=== PATIENT | male | born 1940 | race Caucasian/White ===

== ENCOUNTER 2024-05-25 20:13 | Inpatient (IN) | payer OTHER, SELFPAY ==
[2024-05-25] VITALS (7 sets, daily range): BP systolic 112–148; BP diastolic 50–77; BMI 28.2; BMI 27.5
--- NOTE | 2024-05-25 15:53 | ED.GENMED ---
History of Present Illness
General
Chief Complaint: Breathing Problem
Source: patient
Exam Limitations: none
Time Seen by Provider: 05/25/24 15:44
Nursing documentation reviewed up to this point in time: agreed with
History of Present Illness
History of Present Illness:
83-year-old male with history of COPD, interstitial lung disease, ex smoker, HTN, HLD, pacemaker, CAD, HFpEF, Parox afib, TAVR, on Eliquis, PVD, GERD, IDDM, CKD, hypothyroid presents stating he has had increasing shortness of breath past 3 to 4 days
with significant fatigue. 3 nights ago at 3 AM he became short of breath, he awoke with a temperature of 101 and had the rigors. He took Tylenol. His throat was scratchy that day but that has resolved. For the next 2 days he had intermittent
small amounts of nonbloody diarrhea, his last diarrheal stools yesterday, none today. He has had a productive cough for the past 2 days with a coarse junky gurgling sound in his lungs.
Daughter at bedside who is a nurse practitioner states she went to see him at 7:30 AM 2 days ago, he was still fevers and his pulse ox was showing 90 to 92% on room air where he typically is 94% on room air. The next day she states he was improved,
afebrile but that night his fever went to 100.0 again
Last night temperature was 100.1 and with any exertion his pulse ox decreased to 82 to 88%, improving after a nebulization treatment to 92%.
His last appointment with his cleaning porter Georgette was 1 week ago, he was up 10 pounds, he had +2 pitting edema of his ankles and JVD. She added an extra 10 mg daily to his Torsemide (30 mg a.m. 20 mg p.m.) for the next 3 days.
Daughter states today pt could not even walk from Bedroom to kitchen without significant SOB and pulse ox dropping to 80%
Past History
Past History
ED Past Medical History: CAD, CHF, COPD, HTN, Hypercholesterolemia, NIDDM, Valvular disease, Hypothyroidism, Psychiatric (Anxiety, depression) and Other (PNA, Cirrhosis of the liver)
ED Past Surgical History: Cardiac (Pacemaker, TAVR, Stent X 1)
Social History
Tobacco: Former smoker
Alcohol: Former
Personal:
Living: with family
Employment: Retired
Family History
Family History: Other (Noncontributory)
Review of Systems
Review of Systems
Allergies reviewed?: Yes
All Other Systems: ROS reviewed and negative except as documented in HPI and ROS
Constitutional: Reports fever, fatigue and chills
EENT: Denies sore throat
Respiratory: Reports cough and trouble breathing
Cardiac: Denies chest pain or diaphoresis
ABD/GI: Reports diarrhea; Denies abdominal pain, nausea, vomiting, bloody stools or black stools
: Denies dysuria, frequency or difficulty voiding
Musculoskeletal: Reports no symptoms
Skin: Reports no symptoms
Neurological: Reports no symptoms
Phy Exam
Physical Exam
Physical Exam:
GENERAL: No acute distress. A&Ox3.
CONSTITUTIONAL: Afebrile.
EYES: PERRL, conjunctivae normal
Neck: Supple
ENMT: Dry mucus membranes, Pharynx nl
RESPIRATORY: Regular respirations, nonlabored, lungs with coarse junky loose breath sounds, productive cough, rhonchi worse in right lung matias than left. Pulse ox 92 to 94% room air unless any exertion then it quickly drops into the 80s
CARDIOVASCULAR: Regular rate and rhythm, no murmurs, no rubs.
GI: Soft, nontender, normal BS
MUSCULOSKELETAL: Moves with ease. Well perfused. No edema.
SKIN: Warm, dry, pink
PSYCH: Normal mood and affect. Well kept, interactive and appropriate
NEUROLOGIC: Awake, alert and oriented. No focal neurological deficits
Scores
Heart Failure Risk
Heart Failure Risk Score: Yes
History of Stroke or TIA: No
History of intubation for respiratory distress: No
Heart rate on ED arrival >/= 110: No
SaO2 <90% on arrival on room air: Yes
HR >/=110 during 3min walk test (or too ill to perform test): No
ECG has acute ischemic changes: No
Urea >/=12mmol/L (BUN 33.6mg/dL): Yes
Serum CO2>/=35mmol/L: No
Troponin I or T elevated to CO Level (0.4mg/dL): No
NT-proBNP >/=5,000ng/L (5,000pg/ml): No
HF Risk Score: 2
Admission Status: MEDIUM RISK 9.2% Consider observation or discharge to home with homecare & f/u visit to PCP/Mass Spectroscopist, or SNF for treatment
Course
Orders/Labs/Results
Orders:
Orders
05/25/24 Dinner
2000 calorie (17 carb) Diabetic
Diabetic Diet: Sodium, 2 Gram
05/25/24 15:14
Electrocardiogram (*1) Urgent
Reason for Study: Shortness of Breath
EKG- Treatment ONCE
05/25/24 15:53
COVID-19 Antigen Urgent
Source: Nasal Swab
Complete Blood Count/With Diff Urgent
Comprehensive Metabolic Panel Urgent
Pro-BNP [NT-proBNP] Urgent
Influenza A+B Rapid Molecular Urgent
JULES Source: Nasal Swab
Specimen Description:
05/25/24 16:15
CR Chest - 2 Views Urgent
Comment:
Reason For Exam: SOB, cough
05/25/24 16:30
Lactic Acid Urgent
Blood Culture Q30M
JULES Source: Blood/Venous
Specimen Description:
Blood Culture Q30M
JULES Source: Blood/Venous
Specimen Description:
05/25/24 19:33
Admit/Transfer Patient As Directed
Co-Sign Provider:
Level of Care: Inpatient admission
Assign to:: Medical/Surgical
Physician / Group: Talha
Diagnosis: Acute COPD Exacerbation
Reason for Hospitalization: IV Steroids, Nebs
Expected length of stay greater than two midnights?: Yes
ELOS- Estimated Length of Stay in days: 3
I certify the patient meets the requirements for IP care: Yes
05/25/24 19:37
Code Status As Directed
Resuscitation Status: Do not resuscitate
Reached after discussion with pt or family/Healthcare POA: Yes
05/25/24 19:44
DNR Bracelet Application ONCE
05/25/24 20:55
Acetaminophen [Tylenol] 650 mg PO Q4HPRN PRN
Apixaban [Eliquis] 2.5 mg PO BID
Budesonide [Pulmicort] 0.5 mg INH R BID
Dexamethasone Sod Phosphate [Decadron] 6 mg IV Q8H
Dextrose 50%-Water [Dextrose 50% Syringe] 12.5 grams IV [id number] PRN
Glucagon [GlucaGen] 1 mg IM PRN PRN
Guaifenesin [Mucinex] 600 mg PO BID
Ipratropium/Albuterol Sulfate [Duoneb] 3 ml INH R Q4HPRN PRN
Ipratropium/Albuterol Sulfate [Duoneb] 3 ml INH R QID
05/25/24 20:55
PULMONARY CONSULT Routine
Consulting Provider: Olga Brock
Was physician already notified: Yes
Activity As Directed
Activity Level: Out of Bed-Early Mobility
With Assistance
Bedside Glucose Monitoring As Directed
Frequency: AC&HS
Additional Instructions:: Change to q6h if pt on TPN, tube feeding or not eating
I&O [Intake/ Output] As Directed
Frequency: q12h
Vital Signs As Directed
Frequency: Per unit guidelines
Weight As Directed
Frequency: Daily
Pulse Ox/exercise [RESP] Routine
Quantity: 1
Pulse Ox/spot Check [RESP] Routine
Quantity: 1
Rx Incentive Spirometry [RESP] Routine
Frequency: q1h while awake
Rx Pep / Acapela [RESP] Routine
Ot Eval And Treat Routine
Pt Eval And Treat Routine
Activity Level: Out of Bed-Early Mobility
05/25/24 22:00
Atorvastatin [Lipitor] 40 mg PO HS
Donepezil HCl [Aricept] 10 mg PO HS
Doxazosin Mesylate [Cardura] 3 mg PO HS
Sertraline HCl [Zoloft] 50 mg PO HS
05/26/24 06:00
Basic Metabolic Panel IN AM
Complete Blood Count/No Diff IN AM
Magnesium IN AM
05/26/24 07:30
Insulin Aspart Corrective Low [Novolog Flexpen-Low Resistance] See Protocol SC AC
hskfem-ggiuwemz-iqdbhqc [Creon] 1 cap PO AC
05/26/24 08:00
Amlodipine [Norvasc] 10 mg PO DAILY
Empagliflozin [Jardiance] 10 mg PO DAILY
Glimepiride [Amaryl] 1 mg PO DAILY
Levothyroxine [Synthroid] 175 mcg PO DAILY
Potassium Chloride [KCl] 20 meq PO DAILY
Torsemide [Demadex] 30 mg PO DAILY
05/26/24 18:00
Azithromycin [Zithromax] 250 mg PO QPM
Cholecalciferol (Vitamin D3) [VITAMIN D3 (cholecalciferol)] DOSE mcg PO QPM
Pantoprazole [Protonix] 40 mg PO QPM
Propranolol [Inderal] 10 mg PO QPM
Torsemide [Demadex] 20 mg PO QPM
05/26/24 19:33
Metolazone [Zaroxolyn] 2.5 mg PO WESA
Abnormal Lab Results
05/25/24
15:53
WBC 12.4 H 10^3/uL
(4.8-10.8)
RBC 4.33 L 10^6/uL
(4.70-6.10)
Hgb 10.6 L g/dL
(13.0-18.0)
Hct 35.5 L %
(39.0-52.0)
MCH 24.5 L pg
(27.0-31.0)
MCHC 29.9 L g/dL
(33.0-37.0)
RDW 18.1 H %
(11.5-14.5)
MPV 11.3 H fL
(7.4-10.4)
Abs Immat Gran (auto) 0.1 H 10^3/uL
(0-0.05)
Absolute Neuts (auto) 10.4 H 10^3/uL
(1.4-6.5)
Absolute Lymphs (auto) 0.9 L 10^3/uL
(1.2-3.4)
Absolute Monos (auto) 0.9 H 10^3/uL
(0.1-0.6)
Immature Gran % 0.6 H %
(0-0.5)
Neutrophils % 83.8 H %
(42.2-75.2)
Lymphocytes % 7.6 L %
(20.5-51.1)
BUN 57 H mg/dl
(9-20)
Creatinine 1.5 H mg/dL
(0.7-1.3)
Glucose 374 H mg/dl
(70-99)
Total Protein 5.8 L g/dl
(6.3-8.2)
05/25/24 15:53
05/25/24 15:53
Vital Signs
Initial and Last Documented VS:
Initial Vital Signs
Temp Pulse Resp BP Pulse Ox
98.5 F 80 20 146/50 93
05/25/24 15:10 05/25/24 15:10 05/25/24 15:10 05/25/24 15:10 05/25/24 15:10
Last Documented Vital Signs
Temp Pulse Resp BP Pulse Ox
98.5 F 76 18 140/58 91
05/25/24 15:10 05/25/24 20:45 05/25/24 20:45 05/25/24 20:00 05/25/24 20:45
MDM/Problems Addressed
Differential Diagnosis Includes:
CHF, COPD exacerbation, PNA
MDM/Problems Addressed:
83-year-old male with history of COPD, interstitial lung disease, ex smoker, HTN, HLD, pacemaker, CAD, HFpEF, Parox afib, TAVR 05/2022, on Eliquis, PVD, GERD, IDDM, CKD, hypothyroid presents stating he has had increasing shortness of breath past 3 to
4 days with significant fatigue. 3 nights ago at 3 AM he became short of breath, he awoke with a temperature of 101 and had the rigors. He took Tylenol. His throat was scratchy that day but that has resolved. For the next 2 days he had
intermittent small amounts of nonbloody diarrhea, his last diarrheal stools yesterday, none today. He has had a productive cough for the past 2 days with a coarse junky gurgling sound in his lungs.
Daughter at bedside who is a nurse practitioner states she went to see him at 7:30 AM 2 days ago, he was still fevers and his pulse ox was showing 90 to 92% on room air where he typically is 94% on room air. The next day she states he was
improved, afebrile but that night his fever went to 100.0 again
Last night temperature was 100.1 and with any exertion his pulse ox decreased to 82 to 88%, improving after a nebulization treatment to 92%.
His last appointment with his cleaning porter Georgette was 1 week ago, he was up 10 pounds, he had +2 pitting edema of his ankles and JVD. She added an extra 10 mg daily to his Torsemide (30 mg a.m. 20 mg p.m.) for the next 3 days.
Daughter states today pt could not even walk from Bedroom to kitchen without significant SOB and pulse ox dropping to 80%
EKG: AV dual paced rhythm, rate 71
last echocardiogram w EF 60-65% 10/31/23
Pt with coarse junky loose productive cough
Moving himself up in bed, pulse ox dropped to 82% then back up to 95% RA
CBC: No clinically significant abnormality
CMP: BUN/creat at 57/1.5 his baseline. Glucose 374 otherwise normal
BNP: 1770 not clinically significant for his age
Covid test neg
6:45 PM
In to reevaluate
CXR radiology report read: NAD
Patient ambulated to bathroom and around room and pulse ox dropped to 88%. At rest it goes back up to 95% on room air.
I believe he is having a COPD exacerbation.
Daughter is interested in having patient have home O2.
Neither she nor the patient are comfortable going home with his respiratory status.
Final diagnosis: Exertional dyspnea, Hypoxemia, COPD exacerbation
Fever and chills reported, blood cultures pending.
Hospitalist notified of admission
*EKG
EKG Intrepretation Date: 05/25/24
Interpretation: abnormal
Heart Rate: 71
Rate: normal
Rhythm: other
Verner: normal axis
QRS Pattern: wide non-specific
Ischemia: no ischemia
*Critical Care Note
Total Time (30-74mins, 75-104mins- exclusive of procedures): Not Applicable
ED Attending Note
-
Portions of this chart may have been created with voice recognition software.� Occasional wrong word or��sound alike� substitutions may have occurred due to the inherent limitations of voice recognition software.
Discharge Plan
Departure
Patient Disposition: Admit
Date of Disposition: 05/25/24
Time of Disposition: 19:01
Admit to: Med/Surg
Presentation/result/management discussed w/ accepting MD/DO: Hospitalist
Condition: Fair
Covid-19: Negative COVID-19
Discharge Problem:
COPD exacerbation
Interventions
Interventions:
*Risk Screen - Suicide Last Done: 05/25/24 15:38
*General Assessment Last Done: 05/25/24 15:10
*Neglect/Abuse Screening Last Done: 05/25/24 15:38
ED- Fall Risk Assessment Last Done: 05/25/24 16:44
*ED COVID-19 Vaccine History Last Done: 05/25/24 15:10
*Nursing Disposition Last Done: 05/25/24 20:51
ED- Cardiac Assessment Last Done: 05/25/24 16:43
ED- Pulmonary Assessment Last Done: 05/25/24 16:43
Discharge Date and Time
Discharge Date/Time: 05/25/24 20:51
[2024-05-25 16:04] LABS: % Basophils 0.2 % (0-2); % Eosinophils 0.2 % (0-6); % Immature Granulocytes 0.6 % (0-0.5); % Lymphocytes 7.6 % (20.5-51.1); % Monocytes 7.6 % (1.7-9.3); % Neutrophils 83.8 % (42.2-75.2); Absolute Immature Granulocytes 0.1 10^3/uL (0-0.05); Absolute Lymphocytes 0.9 10^3/uL (1.2-3.4); Absolute Monocytes 0.9 10^3/uL (0.1-0.6); Absolute Neutrophils 10.4 10^3/uL (1.4-6.5); Hematocrit 35.5 % (39.0-52.0); Hemoglobin 10.6 g/dL (13.0-18.0); Mean Corp Hgb Conc. 29.9 g/dL (33.0-37.0); Mean Corpuscular Hgb 24.5 pg (27.0-31.0); Mean Platelet Volume 11.3 fL (7.4-10.4); Nucleated Red Blood Cells % 0 % (-); Platelet Count 145 10^3/uL (130-400); Red Blood Cell Count 4.33 10^6/uL (4.70-6.10); Red Cell Dist. Width 18.1 % (11.5-14.5); White Blood Cell Count 12.4 10^3/uL (4.8-10.8)
[2024-05-25 16:21] LABS: ALT (SGPT) 27 U/L (0-50); AST (SGOT) 34 U/L (17-59); Albumin 3.7 g/dl (3.5-5.0); Alkaline Phosphatase 65 U/L (38-126); Blood Urea Nitrogen 57 mg/dl (9-20); Calcium 8.6 mg/dl (8.4-10.2); Carbon Dioxide 26 mmol/L (22-30); Chloride 100 mmol/L (98-107); Estimated Creatinine Clearance 39 ml/min; Glucose 374 mg/dl (70-99); Potassium 3.9 mmol/L (3.5-5.1); Sodium 137 mmol/L (135-145); Total Bilirubin 0.4 mg/dl (0.2-1.3); Total Protein 5.8 g/dl (6.3-8.2); eGFR 45.91
[2024-05-25 16:24] LABS: NT-proBNP 1770 pg/ml
[2024-05-25 16:45] LABS: COVID-19 Antigen Negative (Negative)
[2024-05-25 16:52] LABS: Lactic Acid 1.9 mmol/L (0.7-2.0)
--- NOTE | 2024-05-25 19:45 | HPS.HSE ---
Family Physician
-
Family Physician: Dexter Meng
Chief Complaint
-
Cough and Shortness of Breath
History of Present Illness
Patient is an 83 y/o male past medical history of CHF, COPD/ILD on chronic steroids and azithromycin, A-fib, HTN, and DM who presents with increased cough and shortness of breath. Additional history is obtained from patient's daughter at the
bedside. Patient was noted to have upper respiratory symptoms over the past several days which was associated with fever initially. Fever curve appears to be improving but patient continues with worsening shortness of breath. Daughter notes
patient's pulse ox drop down into the 80s with any activity. Cough is noted to sound very moist and productive. Daughter notes he was recently treated for an acute heart failure exacerbation with increased diuretics last week, but noted his
previous lower extremity edema is much improved and his weight is back down to baseline
Medical History
Past Medical History
Past Medical History: Reports Other
Additional Past Medical History:
Coronary Artery Disease s/p LAD Stent in 2012
Chronic HFpEF
Aortic Stenosis s/p TAVR
Paroxysmal Atrial Fibrillation
Heart Block/SSS s/p Pacemaker
Essential Hypertension
Hyperlipidemia
Diabetes Mellitus, Type II
COPD / Interstitial Lung Disease
Hypothyroidism
Essential Tremor
Mild Cognitive Impairment
Anxiety/Depression
BPH
GERD
Past Surgical History: Reports Other
Additional Past Surgical History:
Partial Colon Resection
TAVR
PPM Placement
Social History
Tobacco: Former Smoker (Quit in 2013)
Family History
Family History: Not pertinent
Allergies / Home Medications
Allergies reflects when Allergies were last updated in [facility].
Home Medications with original date entered in [facility]
Allergy/Medication List:
Allergies
Allergy/AdvReac Type Severity Reaction Status Date / Time
No Known Allergies Allergy Verified 05/25/24 15:13
Home Medications
cyanocobalamin (vitamin B-12) 1,000 mcg tablet 1,000 mcg PO QPM Supplement 01/13/20
levothyroxine 175 mcg tablet 175 mcg PO DAILY Thyroid 01/13/20
sertraline 50 mg tablet 50 mg PO HS Mental Health/Anxiety 01/13/20
atorvastatin 40 mg tablet 40 mg PO HS High cholesterol 05/15/20
pantoprazole 40 mg tablet,delayed release 40 mg PO QPM Gastrointestinal issue 05/15/20
propranolol 10 mg tablet 10 mg PO QPM Mental Health/Anxiety 05/15/20
cholecalciferol (vitamin D3) 50 mcg (2,000 unit) tablet 2,000 units PO QPM Supplement 03/28/21
doxazosin 1 mg tablet 3 mg PO HS 03/28/21
budesonide 0.5 mg/2 mL suspension for nebulization 0.5 mg (2 mL) inhalation R BID 30 days ##2 05/07/21
guaifenesin 600 mg tablet, extended release 12 hr (Mucus Relief ER) 600 mg PO BID Lung/breathing issues 03/15/22
magnesium oxide 400 mg PO QPM Supplement 03/15/22
torsemide 20 mg tablet 30 mg PO DAILY Fluid retention/Swelling 03/15/22
empagliflozin 10 mg tablet (Jardiance) 10 mg PO DAILY 04/10/22
amlodipine 10 mg tablet 10 mg PO DAILY Blood pressure ##0 05/07/22
acetaminophen 500 mg tablet (Tylenol Extra Strength) 1,000 mg PO TIDPRN PRN mild pain 10/17/23
apixaban 5 mg tablet (Eliquis) 2.5 mg PO BID 05/25/24
azithromycin 250 mg tablet 250 mg PO QPM 05/25/24
benzonatate 100 mg capsule 100 mg PO DAILYPRN PRN cough 05/25/24
calcium-magnesium 1 tab PO BID 05/25/24
donepezil 10 mg tablet 10 mg PO HS 05/25/24
glimepiride 1 mg tablet 1 mg PO DAILY 05/25/24
ipratropium 0.5 mg-albuterol 3 mg (2.5 mg base)/3 mL nebulization soln 3 ml inhalation R TID 05/25/24
fwfzwe-cykiqehq-smycqbz 24,000-76,000-120,000 unit capsule,delayed rel (Creon) 1 cap PO AC 05/25/24
metolazone 2.5 mg tablet 2.5 mg PO WESA 05/25/24
potassium chloride 20 mEq tablet,extended release 20 meq PO DAILY 05/25/24
prednisone 10 mg tablet 5 mg PO TUFR 05/25/24
prednisone 10 mg tablet 10 mg PO SUMOWETHSA 05/25/24
simethicone 80 mg chewable tablet 80 mg PO DAILYPRN PRN gas/bloating 05/25/24
torsemide 20 mg tablet 20 mg PO QPM 05/25/24
vitamins A,C,G-vpgb-nbdyiy 2,148 mcg-113 mg-45 mg-17.4 mg tablet (PreserVision AREDS) 1 tab PO BID 05/25/24
Review of Systems
-
A 12 point ROS was completed and negative except as noted: Yes
Constitutional: Reports Fever and Chills
Respiratory: Reports See HPI
Cardiac: Denies Chest Pain or Palpitations
Physical Exam
Vital Signs
Vital Signs
Temp Pulse Resp BP Pulse Ox
98.5 F 65 15 129/56 93
05/25/24 15:10 05/25/24 16:15 05/25/24 16:15 05/25/24 16:00 05/25/24 16:15
Physical Exam
General: Comfortable and Conversant
HEENT: Anicteric and Moist mucous membranes
Respiratory: Rhonchi (Diffuse) and Non Labored Respirations
Cardiac: S1/S2 and Regular Rhythm; No Tachycardia
GI: Soft and Non Tender
Rectal: Deferred by Provider
Musculoskeletal: No Clubbing, No Cyanosis and No Edema
Skin: Warm and Dry
Neuro: Awake, Alert and Nonfocal/grossly intact
Psych: Calm
Laboratory Results
-
05/25/24 15:53
05/25/24 15:53
Laboratory Results
Lactic Acid 1.9 mmol/L (0.7-2.0) 05/25/24 16:30
Total Bilirubin 0.4 mg/dl (0.2-1.3) 05/25/24 15:53
AST 34 U/L (17-59) 05/25/24 15:53
ALT 27 U/L (0-50) 05/25/24 15:53
Alkaline Phosphatase 65 U/L (38-126) 05/25/24 15:53
Data Reviewed
-
Diagnostic Radiology: Report Reviewed by me
Lab Data: Labs Reviewed by me
Old Records: Reviewed
Impression/Plan
-
Acute COPD Exacerbation
-Consult Pulmonary
-Continue Pulmicort Neb BID
-Continue DuoNeb QID and PRN
-Continue Mucinex
-Continue Zithromax as prior to admission
-Encourage use of incentive spirometer and Acapella device
-Patient may benefit from home oxygen for activity
Chronic HFpEF
-Continue torsemide and metolazone
-Monitor Is&Os and Daily Weights
Paroxysmal Atrial Fibrillation
-Continue Eliquis for anticoagulation
Essential Hypertension
-Continue amlodipine with hold parameters
Hyperlipidemia
-Continue Atorvastatin
Diabetes Mellitus, Type II
-HgbA1c 7.0 in March 2023
-Continue glimepiride and Jardiance
-Monitor sugars and continue coverage insulin
CKD Stage III
-Creatinine at baseline
Hypothyroidism
-Continue levothyroxine
Essential Tremor
-Continue Propranolol
Mild Cognitive Impairment
-Continue Donepezil
Anxiety/Depression
-Continue sertraline
BPH
-Continue Doxazosin
GERD
-Continue Protonix
Coronary Artery Disease s/p LAD Stent in 2012
Aortic Stenosis s/p TAVT
Heart Block/SSS s/p Pacemaker
DVT Proph: Eliquis
Code Status: DNR
--- NOTE | 2024-05-25 20:06 | W.PN.UPDATE ---
Update Note
Progress Note Update
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
HPI
83M HX COPD, chr HFpEF, TAVR, AF on Eliquis, PPM, CKD3, seen at ER for SoB
Current Dyspnea for last 3-4 days
- with a productive cough for the past 2 days and felt congested
- onset for last 3- 4day
- associated with fatigue
- Fever with rigors at home - T was 101
- URI like symptoms with sore thrroat
- aslo intermittent nonbloody diarrhea: last diarrheal stools yesterday, none today
At ER:
POx 93 % on RA
PHX
CAD, CHF, COPD, HTN, Hypercholesterolemia, NIDDM, Valvular disease, Hypothyroidism, Psychiatric (Anxiety, depression) and Other (PNA, Cirrhosis of the liver)
PSH
#26 mm Fleming S3 TAVR with peak/mean gradients of 22/13 mmHg,
status post right total hip arthroplasty.
Reviewed VS: POx 93 % on RA otherwise unremarkable
PE
Lungs:c diffuse rhonchi worse in right lung matias than left
Data
WCC 12.4
Hgb 10.6 - baseline low 12s
BUN 57
Cr 1.5 1.4 to 1.1 on 2021
eGFR 45
BG 375
pro BNP 1770 - baseline range 500s to 4000s
NEG Covid
NEG Flu A & B
BCx ordered
05/25 CXR: No acute cardiopulmonary process
EKG report
AV dual-paced rhythm
ABNORMAL ECG
WHEN COMPARED WITH ECG OF 17-OCT-2023 08:33,
VENT. RATE HAS INCREASED BY 2 BPM
Confirmed by NEIL RODRIGUEZ MD ([id number]) on 05/25/2024 3:52:01 PM
10/10/22 ECHO
LVEF 60-65
Possible mild mitral stenosis with mean gradient of 6 mmHg. Mitral valve area 2.6 cm2.
Mild mitral regurgitation.
Well seated #26 mm Fleming S3 TAVR with peak/mean gradients of 22/13 mmHg, respectively.
Trace paravalvular aortic regurgitation.
ASSESSMENT & PLAN
Fever , productive cough with associated dyspnea DDx: acute bronchitis /AE COPD ? viral origin
HX IS Lung dz on daily Z max and COPD; not on home O2
- marginal hypoxia and rest and exertional hypoxia as low as 80 s and Leucocytosis
- NEG CXR
- IV steroids, Nebs
- cont Z max
Chronic HFpEF; no acute HF
- on torsemide and metolazone
Paroxysmal AF
- on Eliquis for anticoagulation
Essential Hypertension
- on amlodipine with hold parameters
Hyperlipidemia
-Continue Atorvastatin
T2DM
-HgbA1c 7.0 in March 2023
- on glimepiride and Jardiance
- add ISS
CKD3
-Creatinine at baseline
Hypothyroidism
- on levothyroxine
Essential Tremor
- on propranolol
Mild Cognitive Impairment
- on Donepezil
Anxiety/Depression
- 0n sertraline
CAD s/p LAD Stent in 2012
Aortic Stenosis s/p TAVT
Heart Block/SSS s/p Pacemaker
DVT Proph: Eliquis
Code Status: DNR
Ip TLM
[2024-05-25 21:05] LABS: Glucose - Point of Care 226 mg/dl (70-99)
[2024-05-25] MEDS: CARDURA 3 MG PO (21:19)
[2024-05-25] MEDS: ZOLOFT 50 MG PO ×2 (21:19→21:21)
[2024-05-25] MEDS: DUONEB 3 ML INH (21:20)
[2024-05-25] MEDS: MUCINEX 600 MG PO (21:20)
[2024-05-25] MEDS: ZOLOFT PO (21:20)
[2024-05-25] MEDS: LIPITOR 40 MG PO (21:20)
[2024-05-25] MEDS: PULMICORT 0.5 MG INH (21:20)
[2024-05-25] MEDS: ELIQUIS 2.5 MG PO (21:21)
[2024-05-25] MEDS: DECADRON 6 MG IV (21:22)
[2024-05-25] MEDS: ARICEPT 10 MG PO (21:28)
[2024-05-26] MEDS: DUONEB 3 ML INH ×5 (03:06→19:46)
[2024-05-26] MEDS: SYNTHROID 175 MCG PO (05:12)
[2024-05-26] MEDS: DECADRON 6 MG IV ×3 (05:12→21:38)
[2024-05-26 05:57] VITALS: BMI 27.7
[2024-05-26 06:48] LABS: Hematocrit 33.1 % (39.0-52.0); Hemoglobin 10.5 g/dL (13.0-18.0); Mean Corp Hgb Conc. 31.7 g/dL (33.0-37.0); Mean Corpuscular Hgb 24.7 pg (27.0-31.0); Mean Corpuscular Volume 77.9 fL (80.0-94.0); Mean Platelet Volume 11.1 fL (7.4-10.4); Platelet Count 166 10^3/uL (130-400); Red Blood Cell Count 4.25 10^6/uL (4.70-6.10); Red Cell Dist. Width 18.3 % (11.5-14.5); White Blood Cell Count 10.8 10^3/uL (4.8-10.8)
[2024-05-26 07:19] LABS: Blood Urea Nitrogen 55 mg/dl (9-20); Calcium 8.8 mg/dl (8.4-10.2); Carbon Dioxide 24 mmol/L (22-30); Chloride 101 mmol/L (98-107); Estimated Creatinine Clearance 39 ml/min; Glucose 236 mg/dl (70-99); Magnesium 2.1 mg/dl (1.6-2.3); Potassium 4.1 mmol/L (3.5-5.1); Sodium 137 mmol/L (135-145); eGFR 45.91
[2024-05-26 07:59] LABS: Glucose - Point of Care 247 mg/dl (70-99)
[2024-05-26 08:00] VITALS: BP 137/52
[2024-05-26] MEDS: PULMICORT 0.5 MG INH ×2 (08:22→19:50)
[2024-05-26 08:28] VITALS: PULSE 96; O2SAT 93
[2024-05-26 08:31] VITALS: PULSE 96; O2SAT 93
--- NOTE | 2024-05-26 08:33 | PTOTSP ---
The patient is independent with ambulation and mobility, offering no concerns regarding mobility upon return home. No PT needs identified at this time, will sign off.
[2024-05-26] MEDS: NOVOLOG FLEXPEN-LOW RESISTANCE 2 UNITS SC (10:17)
[2024-05-26] MEDS: JARDIANCE 10 MG PO (10:18)
[2024-05-26] MEDS: MUCINEX 600 MG PO ×2 (10:19→19:38)
[2024-05-26] MEDS: AMARYL 1 MG PO (10:19)
[2024-05-26] MEDS: ZENPEP DELAYED RELEASE CAPSULE 1 CAPSULE PO ×3 (10:19→17:48)
[2024-05-26] MEDS: ELIQUIS 2.5 MG PO ×2 (10:19→19:38)
[2024-05-26] MEDS: DEMADEX 30 MG PO (10:20)
[2024-05-26] MEDS: NORVASC 10 MG PO (10:38)
[2024-05-26] MEDS: KCL 20 MEQ PO (10:38)
[2024-05-26] MEDS: ZAROXOLYN 2.5 MG PO (10:38)
--- NOTE | 2024-05-26 10:45 | CM ---
Patient seen bedside, initial assessment completed. Patient resides with his in independent apartments at [facility]. Patient denies use of DME, is independent with ADLs/IADLs. Patient PCP Dr. Meng, pharmacy [facility] in [place],
confirms prescription coverage through insurance. Patient inquiring if insurance will cover a new nebulizer, reports nebulizer is 1-2 years old. CM will confirm and update patient on coverage. CM will continue to follow for all discharge planning
needs.
Plan; home no needs anticipated.
[2024-05-26 11:57] LABS: Glucose - Point of Care 324 mg/dl (70-99)
--- NOTE | 2024-05-26 12:35 | W.PN.HOSP.TC ---
Addendum entered and electronically signed by Jack Roberts MD 05/26/24 18:10:
Patient seen and examined
Discussed with resident
Impression:
Presentation with dyspnea, wheezing for 3 to 4 days
Acute hypoxic respiratory insufficiency.
Acute COPD exacerbation
Acute tracheobronchitis possibly viral.
FAHEEM
Conditions prior to admission:
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
Not on home O2 prior to presentation
Chronic steroid dependent.
CHF preserved EF
Paroxysmal atrial fibrillation
Anticoagulation
COPD/emphysema
[id number] smoker, quit about 5 years ago.
CAD/LAD stent
Aortic stenosis status post TAVR 2019
Sick sinus syndrome status post permanent pacemaker
Carotid artery stenosis
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
Dyslipidemia
Hypertension.
Hypothyroidism
GERD.
Plan:
COPD exacerbation
Acute tracheobronchitis
Exam with mild diffuse wheezing, although no evidence for distress.
Chest x-ray with no acute cardiopulmonary process
Continue IV Decadron currently on 6 mg at hours
Insulin basal bolus protocol
Short acting bronchodilators.
Will need home O2 assessment prior to discharge
Chronic CHF preserved EF
Volume status compensated
Noted with elevated creatinine possibly FAHEEM due to diuretics
Continue torsemide/metolazone
Follow renal function
Diabetes type 2
Patient reports recent hemoglobin A1c 8.1
Monitor closely with basal bolus protocol.
Continue glimepiride and Jardiance.
Original Note:
Today's Communication/Plan
-
* Continue IV steroids and nebs.
* Mucolytics, incentive spirometry and Acapella
* O2 support if necessary.
* Continue low-dose azithromycin.
Assessment / Plan
Assessment / Plan
Impression
* Chronic obstructive pulmonary disease with acute exacerbation
* Mild respiratory hypoxemic insufficiency
* Chronic heart failure with preserved ejection fraction
* Chronic kidney disease, stage IIIa
* Paroxysmal atrial fibrillation
* Essential hypertension
* Hyperlipidemia
* Type II diabetes mellitus
* Hypothyroidism
* Pancreatic insufficiency
* Essential tremor
* Mild cognitive impairment
* Anxiety/Depression
* Benign prostatic hyperplasia
* Gastroesophageal reflux disease
* Coronary artery disease
* History of aortic stenosis
* Sinus bradycardia
* First-degree A-V block
* A-V dual-paced rhythm
Plan
Chronic obstructive pulmonary disease with acute exacerbation
Mild respiratory hypoxemic insufficiency
- Secondary to URI likely.
- [id number] smoker; quit 2018.
- Continue Pulmicort Neb BID
- Continue DuoNeb QID and PRN
- Continue Mucinex
- Continue Zithromax as prior to admission
- Encourage use of incentive spirometer and Acapella device
- Evaluated for home oxygen on 05-26-24: does not meet the criteria.
Chronic heart failure with preserved ejection fraction
- Continue torsemide and metolazone
- Monitor Is&Os and Daily Weights
Paroxysmal Atrial Fibrillation
- Continue Eliquis for anticoagulation
Essential Hypertension
- Continue amlodipine with hold parameters
Hyperlipidemia
- Continue Atorvastatin
Diabetes Mellitus, Type II
- HgbA1c 7.0 in March 2023
- Continue glimepiride and Jardiance
- Monitor sugars and continue coverage insulin
CKD Stage III
- Creatinine at baseline
Hypothyroidism
- Continue levothyroxine
Pancreatic insufficiency
- Continue Pancrelipase
Essential Tremor
- Continue Propranolol
Mild Cognitive Impairment
- Continue Donepezil
Anxiety and depression
- Continue sertraline
BPH
-Continue Doxazosin
GERD
- Continue Protonix
Coronary Artery Disease s/p LAD Stent in 2012
Aortic Stenosis s/p TAVR 2019
Sinus bradycardia/First-degree A-V block s/p Pacemaker
A-V dual-paced rhythm
DVT Proph: Eliquis
Code Status: DNR
Anticipated Discharge: 24 - 48 hours
Subjective/Interval History
-
Date of Service: May 26, 2024
Objective Data
-
Labs:
Laboratory Results
05/26/24
06:25
WBC 10.8
Hgb 10.5 L
Hct 33.1 L
Plt Count 166
Sodium 137
Potassium 4.1
Chloride 101
Carbon Dioxide 24
BUN 55 H
Creatinine 1.5 H
Glucose 236 H
Calcium 8.8
Vital Signs:
Vital Signs
Temp Pulse Resp BP Pulse Ox
98.4 F 68 18 124/54 95
05/26/24 08:00 05/26/24 11:40 05/26/24 11:40 05/26/24 10:20 05/26/24 11:40
I&O
05/25/24 05/26/24 05/27/24
06:59 06:59 06:59
Intake Total 960 / 960
Balance 960 / 960
Review of Systems
-
History Source: Patient
Constitutional: Reports No Symptoms
EENT: Reports No Symptoms Reported
Respiratory: Reports No Symptoms
Cardiac: Reports No Symptoms
Abdomen/GI: Reports No Symptoms
Genitourinary: Reports No Symptoms
Musculoskeletal: Reports No Symptoms
Skin: Reports No Symptoms
Neuro: Reports No Symptoms
Endocrine: Reports No Symptoms
Hematologic / Lymphatic: Reports No Symptoms
Allergy / Immunology: Reports No Symptoms
Physical Exam
-
General: No Apparent Distress and Comfortable
HEENT: Normocephalic, Atraumatic, Moist Mucous Membranes and Anicteric
Respiratory: Wheezes, Rhonchi and Non Labored Respirations
Cardiac: Regular Rhythm and S1/S2
GI: Soft, Nontender and Nondistended
Genito-urinary: No Costovertebral Tender
Musculoskeletal: No Clubbing, No Cyanosis and No Edema
Skin: Warm, Dry and IV Access / Catheter Site
Neuro: Awake, Alert, Oriented and Nonfocal/Grossly Intact
Psych: Calm
--- NOTE | 2024-05-26 12:35 | CON.PUL ---
Consultation
Consultation Request
Date/Time Consultation Requested: 05/26/2024
Date/Time Consultation Performed: 05/26/2024
Requesting Provider: Dr. Roberts
Performing Provider: Dr. Alek Mcghee
Reason for Consultation: Acute exacerbation of COPD
Medical History
-
History of Present Illness:
83-year-old man with past medical history significant for congestive heart failure, COPD/ILD on chronic steroids and low-dose azithromycin for anti-inflammatory properties, atrial fibrillation, hypertension, type 2 diabetes who presented to the
hospital with increased cough and shortness of breath.
Does report some initial fevers several days in the past. Overall improving. Respiratory symptoms are worsening.
He was noted to have low oxygen levels at 80%. Cough is productive and moist.
There is no mention of hemoptysis.
Patient was recently treated with diuretics with improvement of lower extremity swelling.
Past Medical History
Past Medical History: Other (See assessment and plan section)
Social History
Tobacco: Smoker (97-[id number]-oewf history quit in 2016)
Alcohol: Former (Quit in 2016)
Drug: None
Personal: Single
Living: With Family
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
Family History
Family History: Reviewed & Not Pertinent
Allergies / Home Medications
Allergies
Allergy/AdvReac Type Severity Reaction Status Date / Time
No Known Allergies Allergy Verified 05/25/24 15:13
Home Medications
�Medication �Instructions �Recorded �Confirmed �Last Taken �Type
cyanocobalamin (vitamin B-12) 1,000 mcg PO QPM Supplement 01/13/20 05/25/24 05/24/24 History
1,000 mcg tablet
levothyroxine 175 mcg tablet 175 mcg PO DAILY Thyroid 01/13/20 05/25/24 05/25/24 History
sertraline 50 mg tablet 50 mg PO HS Mental Health/Anxiety 01/13/20 05/25/24 05/24/24 History
atorvastatin 40 mg tablet 40 mg PO HS High cholesterol 05/15/20 05/25/24 05/24/24 History
pantoprazole 40 mg tablet,delayed 40 mg PO QPM Gastrointestinal issue 05/15/20 05/25/24 05/24/24 History
release
propranolol 10 mg tablet 10 mg PO QPM Mental Health/Anxiety 05/15/20 05/25/24 05/24/24 History
cholecalciferol (vitamin D3) 50 2,000 units PO QPM Supplement 03/28/21 05/25/24 05/24/24 History
mcg (2,000 unit) tablet
doxazosin 1 mg tablet 3 mg PO HS 03/28/21 05/25/24 05/24/24 History
budesonide 0.5 mg/2 mL suspension 0.5 mg (2 mL) inhalation R BID 30 05/07/21 05/25/24 05/25/24 Rx
for nebulization days ##2
guaifenesin 600 mg tablet, 600 mg PO BID Lung/breathing issues 03/15/22 05/25/24 05/25/24 History
extended release 12 hr (Mucus
Relief ER)
magnesium oxide 400 mg PO QPM Supplement 03/15/22 05/25/24 05/24/24 History
torsemide 20 mg tablet 30 mg PO DAILY Fluid 03/15/22 05/25/24 05/25/24 History
retention/Swelling
empagliflozin 10 mg tablet 10 mg PO DAILY 04/10/22 05/25/24 05/25/24 History
(Jardiance)
amlodipine 10 mg tablet 10 mg PO DAILY Blood pressure ##0 05/07/22 05/25/24 05/25/24 Rx
acetaminophen 500 mg tablet 1,000 mg PO TIDPRN PRN mild pain 10/17/23 05/25/24 05/25/24 History
(Tylenol Extra Strength)
apixaban 5 mg tablet (Eliquis) 2.5 mg PO BID 05/25/24 05/25/24 05/25/24 History
azithromycin 250 mg tablet 250 mg PO QPM 05/25/24 05/25/24 05/24/24 History
benzonatate 100 mg capsule 100 mg PO DAILYPRN PRN cough 05/25/24 05/25/24 05/25/24 History
calcium-magnesium 1 tab PO BID 05/25/24 05/25/24 05/25/24 History
donepezil 10 mg tablet 10 mg PO HS 05/25/24 05/25/24 05/24/24 History
glimepiride 1 mg tablet 1 mg PO DAILY 05/25/24 05/25/24 05/25/24 History
ipratropium 0.5 mg-albuterol 3 mg 3 ml inhalation R TID 05/25/24 05/25/24 05/25/24 History
(2.5 mg base)/3 mL nebulization
soln
qpleng-zjyvbtud-yurwonm 1 cap PO AC 05/25/24 05/25/24 05/25/24 History
24,000-76,000-120,000 unit
capsule,delayed rel (Creon)
metolazone 2.5 mg tablet 2.5 mg PO WESA 05/25/24 05/25/24 05/22/24 History
potassium chloride 20 mEq 20 meq PO DAILY 05/25/24 05/25/24 05/25/24 History
tablet,extended release
prednisone 10 mg tablet 5 mg PO TUFR 05/25/24 05/25/24 05/25/24 History
prednisone 10 mg tablet 10 mg PO SUMOWETHSA 05/25/24 05/25/24 05/24/24 History
simethicone 80 mg chewable tablet 80 mg PO DAILYPRN PRN gas/bloating 05/25/24 05/25/24 05/24/24 History
torsemide 20 mg tablet 20 mg PO QPM 05/25/24 05/25/24 05/24/24 History
vitamins A,C,P-icka-oabpvc 2,148 1 tab PO BID 05/25/24 05/25/24 05/24/24 History
mcg-113 mg-45 mg-17.4 mg tablet
(PreserVision AREDS)
Review of Systems
-
History Source: Patient
All other systems: Negative unless noted
Vitals / Labs / Diagnostic Testing
Vital Signs
Temp Pulse Resp BP Pulse Ox
98.4 F 68 18 124/54 95
05/26/24 08:00 05/26/24 11:40 05/26/24 11:40 05/26/24 10:20 05/26/24 11:40
Lab Data
05/26/24 06:25
05/26/24 06:25
Microbiology
05/25/24 15:53 Nasal Swab Influenza Types A & B (JOSEPHINE) - Final
Negative for Influenza A & B, NAAT
Negative results must be combined with clinical observations
and patient history.
Nucleic Acid Amplification test (NAAT)performed on the
[employer] platform.
Diagnostic Testing:
Physical Exam
-
HEENT: Normocephalic
Cardiovascular: S1/S2
Respiratory: Wheeze (Minimal in the bases expiratory.), Rhonchi (Scattered bilaterally.) and Other (Better air movement.)
GI: Soft and Non Distended
Neurology: Awake, Oriented and AO x 3
Skin: Warm
General: Respiratory Distress (n)
Assessment
-
Dyspnea for the last 3 to 4 days prior admission. Mild respiratory hypoxemic insufficiency.
Acute exacerbation of COPD. Likely tracheobronchitis/fever.-Cough/congestion
Chest x-ray 05/25/2024: Showed no acute cardiopulmonary process.
Negative influenza
Negative COVID
Increased proBNP 1770
History of severe COPD, mild centrilobular emphysema. FEV1 43% in 2020.
Not requiring oxygen at home up until 03/2024.
Steroid-dependent
Budesonide nebulizer/low-dose azithromycin/DuoNebs
Hyperglycemia likely due to steroid
Acute kidney injury-possibly volume depletion.
Conditions present prior to admission:
Recent admission for Covid 19 pneumonia-considered mild 03/28/21
history of heart failure with preserved ejection fraction.
Echocardiogram 10/31/2023: Normal LVEF. Mild LVH. Normal right ventricular size and function. Well-seated TAVR. Trace aortic regurgitation. Trace pulmonary regurgitation.
Postvaccination-treated with antibodies and Decadron 04/01/21
Recent admission for congestive heart failure with preserved EF/COPD 04/13/21
Recent admission for shortness of breath, 05/07/21 treated with steroids, improved
COPD/emphysema on CT-moderate based on pulmonary function testing 01/2023: FEV1 1.92 L - 76%. FEV1 FVC ratio 54%.
65-[id number]-makh smoker-quit 5 years ago
Follows up with Dr. Capps last time seen 03/2024.
Negative repeat sleep study in the past. Not on CPAP therapy.
CAD-LAD stents 2019
Aortic stenosis status post TAVR-2019
Permanent pacemaker
Carotid stenosis
Hypertension/Hyperlipidemia
Hypothyroid
GERD
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
Anxiety and depression
B12 deficiency
Pancreatic insufficiency
Bilateral cataract surgery/ TAVR 05/20, /LAD stent 01/2020/PPM 05/2020/colon resection
Assessment and plan:
Clinical picture consistent with acute exacerbation of COPD-likely tracheobronchitis.
Agree with current management-he is clinically improving.
IV corticosteroids, continue without change today.
Nebulizers: DuoNebs and Pulmicort
Secretion clearance interventions-continue Acapella device.
Mucolytic's
Oxygen therapy as necessary
Patient is on low-dose azithromycin for anti-inflammatory properties 250 mg daily. Continue for now
Hold further antibiotics for now. Seems to be clinically improving. Afebrile.
Will order a sputum culture will obtain if possible.
-
Last visit in the office 01/2024 no oxygen requirements
Home oxygen assessment prior to discharge
-
Follow blood sugars on high-dose of steroids
-
Will continue to follow.
[2024-05-26] MEDS: NOVOLOG FLEXPEN-LOW RESISTANCE 4 UNITS SC (12:42)
[2024-05-26 15:33] VITALS: BP 139/58
[2024-05-26 15:45] LABS: Glucose - Point of Care 291 mg/dl (70-99)
[2024-05-26] MEDS: DEMADEX 20 MG PO (17:48)
[2024-05-26] MEDS: NOVOLOG FLEXPEN-LOW RESISTANCE 3 UNITS SC (17:48)
[2024-05-26] MEDS: PROTONIX 40 MG PO (17:48)
[2024-05-26] MEDS: ZITHROMAX 250 MG PO (17:49)
[2024-05-26] MEDS: VITAMIN D3 (cholecalciferol) 50 MCG PO (17:49)
[2024-05-26] MEDS: INDERAL 10 MG PO (17:49)
[2024-05-26 19:38] VITALS: BP 136/50
[2024-05-26 21:19] LABS: Glucose - Point of Care 242 mg/dl (70-99)
[2024-05-26] MEDS: ARICEPT 10 MG PO (21:34)
[2024-05-26] MEDS: ZOLOFT 50 MG PO (21:34)
[2024-05-26] MEDS: CARDURA 3 MG PO (21:35)
[2024-05-26] MEDS: LIPITOR 40 MG PO (21:35)
[2024-05-26 23:05] VITALS: BP 129/61
[2024-05-27] MEDS: DUONEB 3 ML INH ×5 (03:18→19:59)
[2024-05-27 05:51] VITALS: BMI 27.8
[2024-05-27] MEDS: DECADRON 6 MG IV (05:51)
[2024-05-27] MEDS: SYNTHROID 175 MCG PO (05:51)
[2024-05-27 07:00] VITALS: BP 135/96
[2024-05-27 07:51] LABS: Glucose - Point of Care 253 mg/dl (70-99)
[2024-05-27] MEDS: NOVOLOG FLEXPEN-LOW RESISTANCE 3 UNITS SC ×2 (07:57→16:39)
[2024-05-27] MEDS: ELIQUIS 2.5 MG PO ×2 (07:58→20:21)
[2024-05-27] MEDS: MUCINEX 600 MG PO ×2 (08:00→20:21)
[2024-05-27] MEDS: DEMADEX 30 MG PO (08:00)
[2024-05-27] MEDS: ZENPEP DELAYED RELEASE CAPSULE 1 CAPSULE PO ×3 (08:00→16:43)
[2024-05-27] MEDS: AMARYL 1 MG PO (08:01)
[2024-05-27] MEDS: KCL 20 MEQ PO (08:01)
[2024-05-27] MEDS: JARDIANCE 10 MG PO (08:02)
[2024-05-27] MEDS: NORVASC 10 MG PO (08:02)
[2024-05-27] MEDS: PULMICORT 0.5 MG INH ×2 (08:07→19:59)
--- NOTE | 2024-05-27 11:17 | W.PN.PUL3 ---
Today's Communication / Plan
-
Decrease IV corticosteroids, hopefully to prednisone tomorrow
Continue nebulizer therapy
Secretion clearance intervention
Will add vest therapy
Continue low-dose azithromycin for anti-inflammatory properties
Increase activity as tolerated
Hopefully discharge planning next 24 hours
Assessment
-
83-year-old man with history of COPD follows up with Dr. Hoffmann in our office. Here for evaluation of shortness of breath, coughing for the last 3 to 4 days prior to admission. Found to be mildly hypoxemic. Found to be bronchospastic admitted for
further care. Pulmonary consulted 05/26/2024.
Dyspnea for the last 3 to 4 days prior admission. Mild respiratory hypoxemic insufficiency.
Acute exacerbation of COPD. Likely tracheobronchitis/fever.-Cough/congestion
Chest x-ray 05/25/2024: Showed no acute cardiopulmonary process.
Negative influenza
Negative COVID
Increased proBNP 1770
History of severe COPD, mild centrilobular emphysema. FEV1 43% in 2020.
Not requiring oxygen at home up until 03/2024.
Steroid-dependent
Budesonide nebulizer/low-dose azithromycin/DuoNebs
Hyperglycemia likely due to steroid
Acute kidney injury-possibly volume depletion.
Conditions present prior to admission:
Recent admission for Covid 19 pneumonia-considered mild 03/28/21
history of heart failure with preserved ejection fraction.
Echocardiogram 10/31/2023: Normal LVEF. Mild LVH. Normal right ventricular size and function. Well-seated TAVR. Trace aortic regurgitation. Trace pulmonary regurgitation.
Postvaccination-treated with antibodies and Decadron 04/01/21
Recent admission for congestive heart failure with preserved EF/COPD 04/13/21
Recent admission for shortness of breath, 05/07/21 treated with steroids, improved
COPD/emphysema on CT-moderate based on pulmonary function testing 01/2023: FEV1 1.92 L - 76%. FEV1 FVC ratio 54%.
78-[id number] smoker-quit 5 years ago
Follows up with Dr. Capps last time seen 03/2024.
Negative repeat sleep study in the past. Not on CPAP therapy.
CAD-LAD stents 2019
Aortic stenosis status post TAVR-2019
Permanent pacemaker
Carotid stenosis
Hypertension/Hyperlipidemia
Hypothyroid
GERD
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
Anxiety and depression
B12 deficiency
Pancreatic insufficiency
Bilateral cataract surgery/ TAVR 05/20, /LAD stent 01/2020/PPM 05/2020/colon resection
Assessment and plan:
Clinical picture consistent with acute exacerbation of COPD-likely tracheobronchitis.
-
Clinically improved but not back to baseline
Lung exam-05/27/2024-better air movement. Minimal expiratory wheezing. Bibasilar crackles.
Oxygen supplementation has been weaned off.
Decreased IV corticosteroids. Hopefully transition to prednisone tomorrow 05/28/2024 per
Nebulizers: DuoNebs and Pulmicort (home regimen)
Secretion clearance interventions-continue Acapella device.
Continues to have difficulty expectorating, while in the hospital we will add vest therapy.
Mucolytic's
Patient is on low-dose azithromycin for anti-inflammatory properties 250 mg daily. Continue for now
Hold further antibiotics for now. Seems to be clinically improving. Afebrile.
Will order a sputum culture will obtain if possible-difficulty expectorating, unable to produce.
-
Last visit in the office 01/2024 no oxygen requirements
Oxygen has been weaned off
-
Follow blood sugars on high-dose of steroids
-
Increase activity as tolerated.
-
Will continue to follow.
-
Hopefully discharge in the next 24 hours.
Outpatient follow-up with Dr. Capps after discharge.
Subjective Data
-
Date of Service:
Date of Service: May 27, 2024
Chief Complaint: Pulmonary Follow Up (Acute exacerbation of COPD-tracheobronchitis)
Subjective:
Patient feels better but still not back to baseline
Has difficulty expectorating
Denies hemoptysis.
Shortness of breath improved
Was able to ambulate around the [place] with some shortness of breath.
Review of Systems
General: Fever (n)
Cardiopulmonary: Dyspnea (Improved), Cough and Sputum Production (Difficulty expectorating)
Objective Data
Data Reviewed
Vital Signs / I&O / Oxygen:
Vital Signs
Temp Pulse Resp BP Pulse Ox
97.7 F 78 16 135/96 95
05/27/24 07:00 05/27/24 08:10 05/27/24 08:10 05/27/24 07:00 05/27/24 08:10
Intake and Output
05/26/24 05/27/24 05/28/24
06:59 06:59 06:59
Intake Total 960 / 960 1260 / 1260
Balance 960 / 960 1260 / 1260
SaO2 95
Physical Exam
General: Respiratory Distress (n) and Comfortable
HEENT: Normocephalic
Cardiovascular: S1-S2 and Regular Rhythm
Respiratory: Wheeze ( minimal expiratory with forceful expiration), Crackles (Both bases) and Accessory Resp Muscle Use (n)
GI: Soft and Non Distended
Neurology: Awake, Alert and AO x 3
Skin: Warm
Labs/Micro/Reports
Lab Data
05/26/24 06:25
05/26/24 06:25
Microbiology
05/25/24 16:30 Blood/Venous Blood Culture - Preliminary
No Growth in 24 hours- Final report to follow
05/25/24 16:30 Blood/Venous Blood Culture - Preliminary
No Growth in 24 hours- Final report to follow
05/25/24 15:53 Nasal Swab Influenza Types A & B (JOSEPHINE) - Final
Negative for Influenza A & B, NAAT
Negative results must be combined with clinical observations
and patient history.
Nucleic Acid Amplification test (NAAT)performed on the
[employer] platform.
--- NOTE | 2024-05-27 11:32 | W.PN.HOSP.TC ---
Addendum entered and electronically signed by Jack Roberts MD 05/27/24 14:55:
Patient seen and examined
Discussed with resident
Impression:
Presentation with dyspnea, wheezing for 3 to 4 days
Acute hypoxic respiratory insufficiency.
Acute COPD exacerbation
Acute tracheobronchitis possibly viral.
FAHEEM
Conditions prior to admission:
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
Not on home O2 prior to presentation
Chronic steroid dependent.
CHF preserved EF
Paroxysmal atrial fibrillation
Anticoagulation
COPD/emphysema
[id number]-klzy smoker, quit about 5 years ago.
CAD/LAD stent
Aortic stenosis status post TAVR 2019
Sick sinus syndrome status post permanent pacemaker
Carotid artery stenosis
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
Dyslipidemia
Hypertension.
Hypothyroidism
GERD.
Plan:
COPD exacerbation
Acute tracheobronchitis
Exam with mild diffuse wheezing, although no evidence for distress.
Chest x-ray with no acute cardiopulmonary process
Exam improved with less wheezing.
Start Decadron wean with plan for prednisone transition in AM.
Insulin basal bolus protocol
Short acting bronchodilators.
Will need home O2 assessment prior to discharge
Chronic CHF preserved EF
Volume status compensated
Noted with elevated creatinine possibly FAHEEM due to diuretics
Continue torsemide/metolazone
Follow renal function
Diabetes type 2
Patient reports recent hemoglobin A1c 8.1
Monitor closely with basal bolus protocol.
Continue glimepiride and Jardiance.
Original Note:
Today's Communication/Plan
-
* Taper IV steroids and continue nebs.
* Mucolytics, incentive spirometry and Acapella
* O2 support if necessary.
* Continue low-dose azithromycin.
Assessment / Plan
Assessment / Plan
Impression
* Chronic obstructive pulmonary disease with acute exacerbation
* Mild respiratory hypoxemic insufficiency
* Chronic heart failure with preserved ejection fraction
* Chronic kidney disease, stage IIIa
* Paroxysmal atrial fibrillation
* Essential hypertension
* Hyperlipidemia
* Type II diabetes mellitus
* Hypothyroidism
* Pancreatic insufficiency
* Essential tremor
* Mild cognitive impairment
* Anxiety/Depression
* Benign prostatic hyperplasia
* Gastroesophageal reflux disease
* Coronary artery disease
* History of aortic stenosis
* Sinus bradycardia
* First-degree A-V block
* A-V dual-paced rhythm
Plan
Chronic obstructive pulmonary disease with acute exacerbation
Mild respiratory hypoxemic insufficiency
- Secondary to URI likely.
- Not on home O2; required O2 support initially; saturating within normal limits on room air
- [id number] smoker; quit 2018.
- Continue Pulmicort Neb BID
- Continue DuoNeb QID and PRN
- Continue Mucinex
- Continue Zithromax as prior to admission
- Vest therapy per pulmonology.
- IV dexamethasone taper; hopefully oral tomorrow in anticipation of discharge.
- Encourage use of incentive spirometer and Acapella device
- Evaluated for home oxygen on 05-26-24 and 05-27-24: does not meet the criteria.
Acute kidney injury
- Possibly due to diuresis; continuing for now.
- Monitor BMP.
Chronic heart failure with preserved ejection fraction
- Continue torsemide and metolazone
- Monitor Is&Os and Daily Weights
Paroxysmal Atrial Fibrillation
- Continue Eliquis for anticoagulation
Essential Hypertension
- Continue amlodipine with hold parameters
Hyperlipidemia
- Continue Atorvastatin
Diabetes Mellitus, Type II
- HgbA1c 7.0 in March 2023; 8.0 recently, per the patient.
- Continue glimepiride and Jardiance
- Monitor sugars and continue coverage insulin
CKD Stage III
- Creatinine at baseline
Hypothyroidism
- Continue levothyroxine
Pancreatic insufficiency
- Continue Pancrelipase
Essential Tremor
- Continue Propranolol
Mild Cognitive Impairment
- Continue Donepezil
Anxiety and depression
- Continue sertraline
BPH
-Continue Doxazosin
GERD
- Continue Protonix
Coronary Artery Disease s/p LAD Stent in 2012
Aortic Stenosis s/p TAVR 2019
Sinus bradycardia/First-degree A-V block s/p Pacemaker
A-V dual-paced rhythm
DVT Proph: Eliquis
Code Status: DNR
Anticipated Discharge: Within 24 hours
Subjective/Interval History
-
Date of Service: May 27, 2024
Objective Data
-
Vital Signs:
Vital Signs
Temp Pulse Resp BP Pulse Ox
97.7 F 74 16 135/96 93
05/27/24 07:00 05/27/24 11:27 05/27/24 11:27 05/27/24 07:00 05/27/24 11:27
I&O
05/26/24 05/27/24 05/28/24
06:59 06:59 06:59
Intake Total 960 / 960 1260 / 1260
Balance 960 / 960 1260 / 1260
Review of Systems
-
History Source: Patient
Constitutional: Reports No Symptoms
EENT: Reports No Symptoms Reported
Respiratory: Reports No Symptoms
Cardiac: Reports No Symptoms
Abdomen/GI: Reports No Symptoms
Genitourinary: Reports No Symptoms
Musculoskeletal: Reports No Symptoms
Skin: Reports No Symptoms
Neuro: Reports No Symptoms
Endocrine: Reports No Symptoms
Hematologic / Lymphatic: Reports No Symptoms
Allergy / Immunology: Reports No Symptoms
Physical Exam
-
General: No Apparent Distress and Comfortable
HEENT: Normocephalic, Atraumatic, Moist Mucous Membranes and Anicteric
Respiratory: Wheezes and Non Labored Respirations
Cardiac: Regular Rhythm and S1/S2
GI: Soft, Nontender and Nondistended
Genito-urinary: No Costovertebral Tender
Musculoskeletal: No Clubbing, No Cyanosis and No Edema
Skin: Warm, Dry and IV Access / Catheter Site
Neuro: Awake, Alert, Oriented and Nonfocal/Grossly Intact
Psych: Calm
[2024-05-27 11:50] LABS: Glucose - Point of Care 199 mg/dl (70-99)
[2024-05-27] MEDS: NOVOLOG FLEXPEN-LOW RESISTANCE 1 UNITS SC (11:55)
[2024-05-27] MEDS: DECADRON 4 MG IV ×2 (13:40→21:20)
--- NOTE | 2024-05-27 14:50 | CM ---
Patient seen bedside, discussed patient does not qualify for home O2. Will fax information to [facility] at [facility] to see if patient can get nebulizer through insurance. Patient reports he is hopeful to discharge tomorrow. CM will continue to follow for
all discharge planning needs.
Plan; home no needs.
[2024-05-27 15:00] VITALS: BP 127/86
[2024-05-27 16:35] LABS: Glucose - Point of Care 270 mg/dl (70-99)
[2024-05-27] MEDS: INDERAL 10 MG PO (16:43)
[2024-05-27] MEDS: VITAMIN D3 (cholecalciferol) 50 MCG PO (16:43)
[2024-05-27] MEDS: PROTONIX 40 MG PO (16:43)
[2024-05-27] MEDS: ZITHROMAX 250 MG PO (16:43)
[2024-05-27] MEDS: DEMADEX 20 MG PO (16:43)
[2024-05-27] MEDS: LIPITOR 40 MG PO (21:21)
[2024-05-27] MEDS: ARICEPT 10 MG PO (21:21)
[2024-05-27] MEDS: CARDURA 3 MG PO (21:21)
[2024-05-27 21:33] LABS: Glucose - Point of Care 199 mg/dl (70-99)
[2024-05-27 23:00] VITALS: BP 129/65
[2024-05-28] MEDS: DUONEB 3 ML INH ×4 (03:16→15:29)
[2024-05-28 06:00] VITALS: BMI 27.9
[2024-05-28] MEDS: SYNTHROID 175 MCG PO (06:10)
[2024-05-28] MEDS: DECADRON 4 MG IV ×2 (06:10→13:47)
[2024-05-28] MEDS: PULMICORT 0.5 MG INH (07:14)
[2024-05-28 07:20] LABS: Glucose - Point of Care 216 mg/dl (70-99)
[2024-05-28] MEDS: NOVOLOG FLEXPEN-LOW RESISTANCE 2 UNITS SC (07:39)
[2024-05-28] MEDS: ELIQUIS 2.5 MG PO (07:41)
[2024-05-28] MEDS: AMARYL 1 MG PO (07:42)
[2024-05-28] MEDS: MUCINEX 600 MG PO (07:42)
[2024-05-28] MEDS: NORVASC 10 MG PO (07:43)
[2024-05-28] MEDS: KCL 20 MEQ PO (07:43)
[2024-05-28] MEDS: JARDIANCE 10 MG PO (07:44)
[2024-05-28] MEDS: DEMADEX 30 MG PO (07:45)
[2024-05-28 07:53] LABS: Blood Urea Nitrogen 73 mg/dl (9-20); Carbon Dioxide 28 mmol/L (22-30); Chloride 96 mmol/L (98-107); Estimated Creatinine Clearance 36 ml/min; Glucose 194 mg/dl (70-99); Sodium 135 mmol/L (135-145); eGFR 42.49
[2024-05-28 08:03] VITALS: BP 121/56
[2024-05-28] MEDS: ZENPEP DELAYED RELEASE CAPSULE 1 CAPSULE PO ×2 (08:06→11:55)
--- NOTE | 2024-05-28 10:50 | W.PN.HOSP.TC ---
Addendum entered and electronically signed by Jack Roberts MD 05/28/24 15:06:
Patient seen and examined
Discussed with resident
Impression:
Presentation with dyspnea, wheezing for 3 to 4 days
Acute hypoxic respiratory insufficiency.
Acute COPD exacerbation
Acute tracheobronchitis possibly viral.
FAHEEM
Conditions prior to admission:
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
Not on home O2 prior to presentation
Chronic steroid dependent.
CHF preserved EF
Paroxysmal atrial fibrillation
Anticoagulation
COPD/emphysema
[id number] smoker, quit about 5 years ago.
CAD/LAD stent
Aortic stenosis status post TAVR 2019
Sick sinus syndrome status post permanent pacemaker
Carotid artery stenosis
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
Dyslipidemia
Hypertension.
Hypothyroidism
GERD.
Plan:
COPD exacerbation
Respiratory status stable.
Exam with improved bronchospasm.
Will transition to oral steroid taper.
Continue PPI
Chronic CHF preserved EF
Volume status compensated
Noted with elevated creatinine possibly FAHEEM due to diuretics
Continue torsemide/metolazone
Follow renal function
Diabetes type 2
Patient reports recent hemoglobin A1c 8.1
Monitor closely with basal bolus protocol.
Continue glimepiride and Jardiance.
Stable for discharge home.
Original Note:
Today's Communication/Plan
-
* Transition to oral steroids; taper to baseline dosing.
* Anticipated discharge today.
Assessment / Plan
Assessment / Plan
Impression
* Chronic obstructive pulmonary disease with acute exacerbation
* Mild respiratory hypoxemic insufficiency
* Chronic heart failure with preserved ejection fraction
* Chronic kidney disease, stage IIIa
* Paroxysmal atrial fibrillation
* Essential hypertension
* Hyperlipidemia
* Type II diabetes mellitus
* Hypothyroidism
* Pancreatic insufficiency
* Essential tremor
* Mild cognitive impairment
* Anxiety/Depression
* Benign prostatic hyperplasia
* Gastroesophageal reflux disease
* Coronary artery disease
* History of aortic stenosis
* Sinus bradycardia
* First-degree A-V block
* A-V dual-paced rhythm
Plan
Chronic obstructive pulmonary disease with acute exacerbation
Mild respiratory hypoxemic insufficiency
- Secondary to URI likely.
- Not on home O2; required O2 support initially; saturating within normal limits on room air
- [id number] smoker; quit 2018.
- Continue Pulmicort Neb BID
- Continue DuoNeb QID and PRN
- Continue Mucinex
- Continue Zithromax as prior to admission
- Vest therapy per pulmonology.
- IV dexamethasone taper; switch to oral in anticipation of discharge.
- Encourage use of incentive spirometer and Acapella device
- Evaluated for home oxygen on 05-26-24 and 05-27-24: does not meet the criteria.
Acute kidney injury
- Possibly due to diuresis; continuing for now.
- Monitor BMP.
Chronic heart failure with preserved ejection fraction
- Continue torsemide and metolazone
- Monitor Is&Os and Daily Weights
Paroxysmal Atrial Fibrillation
- Continue Eliquis for anticoagulation
Essential Hypertension
- Continue amlodipine with hold parameters
Hyperlipidemia
- Continue Atorvastatin
Diabetes Mellitus, Type II
- HgbA1c 7.0 in March 2023; 8.0 recently, per the patient.
- Continue glimepiride and Jardiance
- Monitor sugars and continue coverage insulin
CKD Stage III
- Creatinine at baseline
Hypothyroidism
- Continue levothyroxine
Pancreatic insufficiency
- Continue Pancrelipase
Essential Tremor
- Continue Propranolol
Mild Cognitive Impairment
- Continue Donepezil
Anxiety and depression
- Continue sertraline
BPH
-Continue Doxazosin
GERD
- Continue Protonix
Coronary Artery Disease s/p LAD Stent in 2012
Aortic Stenosis s/p TAVR 2019
Sinus bradycardia/First-degree A-V block s/p Pacemaker
A-V dual-paced rhythm
DVT Proph: Eliquis
Code Status: DNR
Anticipated Discharge: Today
Subjective/Interval History
-
Date of Service: May 28, 2024
Objective Data
-
Labs:
Laboratory Results
05/28/24
06:42
Sodium 135
Potassium 4.0
Chloride 96 L
Carbon Dioxide 28
BUN 73 H
Creatinine 1.6 H
Glucose 194 H
Calcium 9.0
Vital Signs:
Vital Signs
Temp Pulse Resp BP Pulse Ox
97.7 F 74 16 121/56 96
05/28/24 08:03 05/28/24 08:03 05/28/24 08:03 05/28/24 08:03 05/28/24 08:03
I&O
05/27/24 05/28/24 05/29/24
06:59 06:59 06:59
Intake Total 1260 / 1260 1500 / 1500
Balance 1260 / 1260 1500 / 1500
Review of Systems
-
History Source: Patient
Constitutional: Reports No Symptoms
EENT: Reports No Symptoms Reported
Respiratory: Reports No Symptoms
Cardiac: Reports No Symptoms
Abdomen/GI: Reports No Symptoms
Genitourinary: Reports No Symptoms
Musculoskeletal: Reports No Symptoms
Skin: Reports No Symptoms
Neuro: Reports No Symptoms
Endocrine: Reports No Symptoms
Hematologic / Lymphatic: Reports No Symptoms
Allergy / Immunology: Reports No Symptoms
Physical Exam
-
General: No Apparent Distress and Comfortable
HEENT: Normocephalic, Atraumatic, Moist Mucous Membranes and Anicteric
Respiratory: Wheezes (mild) and Non Labored Respirations
Cardiac: Regular Rhythm and S1/S2
GI: Soft, Nontender and Nondistended
Genito-urinary: No Costovertebral Tender
Musculoskeletal: No Clubbing, No Cyanosis and No Edema
Skin: Warm, Dry and IV Access / Catheter Site
Neuro: Awake, Alert, Oriented and Nonfocal/Grossly Intact
Psych: Calm
--- NOTE | 2024-05-28 11:13 | W.PN.PUL3 ---
Today's Communication / Plan
-
Transition to oral prednisone, taper
GERD therapy
Continue with mucolytic therapy, airway clearance measures
Consider vest therapy, this can be looked into as outpatient
Follow-up with with pulmonary in the next 4 to 6 weeks
Assessment
-
83-year-old man with history of COPD follows up with Dr. Hoffmann in our office. Here for evaluation of shortness of breath, coughing for the last 3 to 4 days prior to admission. Found to be mildly hypoxemic. Found to be bronchospastic admitted for
further care. Pulmonary consulted 05/26/2024.
Dyspnea for the last 3 to 4 days prior admission. Mild respiratory hypoxemic insufficiency.
Acute exacerbation of COPD. Likely tracheobronchitis/fever.-Cough/congestion
Chest x-ray 05/25/2024: Showed no acute cardiopulmonary process.
Negative influenza
Negative COVID
Increased proBNP 1770
History of severe COPD, mild centrilobular emphysema. FEV1 43% in 2020.
Not requiring oxygen at home up until 03/2024.
Steroid-dependent
Budesonide nebulizer/low-dose azithromycin/DuoNebs
Hyperglycemia likely due to steroid
Acute kidney injury-possibly volume depletion.
Conditions present prior to admission:
Recent admission for Covid 19 pneumonia-considered mild 03/28/21
history of heart failure with preserved ejection fraction.
Echocardiogram 10/31/2023: Normal LVEF. Mild LVH. Normal right ventricular size and function. Well-seated TAVR. Trace aortic regurgitation. Trace pulmonary regurgitation.
Postvaccination-treated with antibodies and Decadron 04/01/21
Recent admission for congestive heart failure with preserved EF/COPD 04/13/21
Recent admission for shortness of breath, 05/07/21 treated with steroids, improved
COPD/emphysema on CT-moderate based on pulmonary function testing 01/2023: FEV1 1.92 L - 76%. FEV1 FVC ratio 54%.
01-[id number]-xzqt smoker-quit 5 years ago
Follows up with Dr. Capps last time seen 03/2024.
Negative repeat sleep study in the past. Not on CPAP therapy.
CAD-LAD stents 2019
Aortic stenosis status post TAVR-2019
Permanent pacemaker
Carotid stenosis
Hypertension/Hyperlipidemia
Hypothyroid
GERD
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
Anxiety and depression
B12 deficiency
Pancreatic insufficiency
Bilateral cataract surgery/ TAVR 05/20, 20/LAD stent 01/2020/PPM 05/2020/colon resection
Assessment and plan:
Patient appears to be objectively and subjectively improved
Chest exam is clear, no wheezing on exam today
Ambulating in the room without difficulty
Moving forward
Transition to oral prednisone, taper by 10 mg every 3 days, discharge on 40 mg, taper down to baseline
Nebulizers: DuoNebs and Pulmicort (home regimen)
Secretion clearance interventions-continue Acapella device.
Patient feels vest therapy helps. We can look into this as outpatient. CT chest from 2021 without any obvious bronchiectasis but may benefit from repeat imaging with high-resolution images if he would like to consider vest therapy
Continue mucolytic therapy
Patient is on low-dose azithromycin for anti-inflammatory properties 250 mg daily. Continue for now
No indication for antibiotics
No indication for supplemental oxygen
Increase activity
Hopefully discharge in the next 24 hours.
Outpatient follow-up with Dr. Capps after discharge.
Reviewed with primary service and patient at length
Disposition efforts
Subjective Data
-
Date of Service:
Date of Service: May 28, 2024
Chief Complaint: Pulmonary Follow Up (Acute exacerbation of COPD-tracheobronchitis)
Subjective:
Patient is without complaints. Ambulating without difficulty. Denies cough, chest pain, shortness of breath. He feels vest therapy helps him tremendously. However he still finds it difficult to expectorate. Denies any hemoptysis
Objective Data
Data Reviewed
Vital Signs / I&O / Oxygen:
Vital Signs
Temp Pulse Resp BP Pulse Ox
97.7 F 74 16 121/56 96
05/28/24 08:03 05/28/24 08:03 05/28/24 08:03 05/28/24 08:03 05/28/24 08:03
Intake and Output
05/27/24 05/28/24 05/29/24
06:59 06:59 06:59
Intake Total 1260 / 1260 1500 / 1500
Balance 1260 / 1260 1500 / 1500
SaO2 96
Physical Exam
General: Comfortable
HEENT: Normocephalic and Anicteric
Cardiovascular: S1-S2, Regular Rhythm, Murmur (n) and Rub (n)
Respiratory: Wheeze (n), Crackles (n), Rhonchi (n), Non-Labored Respirations and Stridor (n)
GI: Soft, Non Distended and Non Tender
Neurology: Awake and Alert
Skin: Warm and Good Color
Labs/Micro/Reports
Lab Data
05/26/24 06:25
05/28/24 06:42
Microbiology
05/25/24 16:30 Blood/Venous Blood Culture - Preliminary
No Growth in 48 hours- Final report to follow
05/25/24 16:30 Blood/Venous Blood Culture - Preliminary
No Growth in 48 hours- Final report to follow
05/25/24 15:53 Nasal Swab Influenza Types A & B (JOSEPHINE) - Final
Negative for Influenza A & B, NAAT
Negative results must be combined with clinical observations
and patient history.
Nucleic Acid Amplification test (NAAT)performed on the
[employer] platform.
[2024-05-28 11:46] LABS: Glucose - Point of Care 325 mg/dl (70-99)
[2024-05-28] MEDS: NOVOLOG FLEXPEN-LOW RESISTANCE 4 UNITS SC (11:55)
--- NOTE | 2024-05-28 13:01 | W.DCSUMMARY ---
Discharge Summary
Discharge Data
Date of Admission: 05/25/24
Date of Discharge: 05/28/24
-
Pending Results: No
Hospital Course
Primary discharge diagnosis
* Chronic obstructive pulmonary disease with acute exacerbation
Secondary discharge diagnoses
* Mild respiratory hypoxemic insufficiency
* Chronic heart failure with preserved ejection fraction
* Chronic kidney disease, stage IIIa
* Paroxysmal atrial fibrillation
* Essential hypertension
* Hyperlipidemia
* Type II diabetes mellitus
* Hypothyroidism
* Pancreatic insufficiency
* Essential tremor
* Mild cognitive impairment
* Anxiety/Depression
* Benign prostatic hyperplasia
* Gastroesophageal reflux disease
* Coronary artery disease
* History of aortic stenosis
* Sinus bradycardia
* First-degree A-V block
* A-V dual-paced rhythm
Hospital course
Geoffrey Whipple, age 83, came to the hospital on 05-25-24 with increasing shortness of breath, fatigue and pulse ox in the 80s with activity. A few days prior to his presentation in the emergency, he had a URI and was febrile initially. Imaging and
blood work were mostly unremarkable, and the clinical picture was consistent with COPD exacerbation. He required oxygen via NC initially, but was weaned off soon. His symptoms improved with IV steroids, nebs, mucolytics, vest therapy and supportive
measures. He was assessed for home oxygen requirements twice - he maintained his saturation above 88 through both tests and will not be requiring oxygen at home. His vitals remained stable throughout the visit, and he was significantly improved by
the time of his discharge. He was transitioned from IV to oral steroids; will complete a taper down to baseline dosing post-discharge. Follow-up with primary and pulmonology as outpatient.
Discharge Plan
-
Patient Disposition: Home (Routine Discharge)
Discharge Diagnosis/Procedures: Chronic obstructive pulmonary disease with acute exacerbation
Condition: Good
Diet: As tolerated
Activity: As tolerated
Driving Restrictions: As prior to admission
Bathing Restrictions: None
Blood Work: BMP in 1 week
Instructions: Exacerbation of COPD
Referrals:
Immanuel Capps MD [Active] - in four to six weeks
Dexter Meng MD [Family Provider] -
Additional Discharge Medication Instructions: Hold previous prednisone discharge until completing prednisone taper.
PREDNISONE TAPER starting tomorrow:
* FOUR tablets, once a day, on day #1 and #2.
* THREE tablets, once a day, on day #3 and #4.
* TWO tablets, once a day, on day #5 and #6.
Then resume prior dosing.
Prescriptions:
New
prednisone 10 mg tablet
10 mg PO DIRECTED Qty: 18 0RF
Rx Instructions:
FOUR tab a day on day #1 and #2. THREE tab a day on day #3 and #4. TWO tab a day on day #5 and #6.
Continued
levothyroxine 175 MCG tablet
175 mcg PO DAILY
cyanocobalamin (vitamin B-12) 1,000 MCG tablet
1,000 mcg PO QPM
sertraline 50 MG tablet
50 mg PO HS
propranolol 10 MG tablet
10 mg PO QPM
pantoprazole 40 MG tablet,delayed release (DR/EC)
40 mg PO QPM
atorvastatin 40 MG tablet
40 mg PO HS
doxazosin 1 MG tablet
3 mg PO HS
cholecalciferol (vitamin D3) 2,000 UNITS tablet
2,000 units PO QPM
budesonide 0.5 MG/2 ML suspension for nebulization
0.5 mg inhalation R BID 30 Days Qty: 2 0RF
guaifenesin [Mucus Relief ER] 600 MG tablet extended release 12hr
600 mg PO BID
torsemide 20 MG tablet
30 mg PO DAILY
magnesium oxide 400 MG tablet
400 mg PO QPM
Jardiance 10 MG tablet
10 mg PO DAILY
amlodipine 10 MG tablet
10 mg PO DAILY Qty: 0 0RF
acetaminophen [Tylenol Extra Strength] 500 MG tablet
1,000 mg PO TIDPRN PRN (Reason: mild pain)
metolazone 2.5 mg Tablet
2.5 mg PO WESA
ipratropium-albuterol 0.5 mg-3 mg(2.5 mg base)/3 mL Solution For Nebulization
3 ml INHALATION R TID
torsemide 20 mg Tablet
20 mg PO QPM
azithromycin 250 mg Tablet
250 mg PO QPM
donepezil 10 mg Tablet
10 mg PO HS
glimepiride 1 mg Tablet
1 mg PO DAILY
benzonatate 100 mg Capsule
100 mg PO DAILYPRN PRN (Reason: cough)
simethicone 80 mg Tablet,Chewable
80 mg PO DAILYPRN PRN (Reason: gas/bloating)
Creon 24,000-76,000 -120,000 unit Capsule,Delayed Release(Dr/Ec)
1 cap PO AC
PreserVision AREDS 2,148 mcg-113 mg-45 mg-17.4mg Tablet
1 tab PO BID
calcium-magnesium 500 mg/40 mg tablet
1 tab PO BID
Eliquis 5 MG tablet
2.5 mg PO BID
potassium chloride 20 mEq tablet extended release
20 meq PO DAILY
Held
prednisone 10 mg Tablet
10 mg PO SUMOWETHSA
Hold Instructions: HOLD until prednisone dose is tapered down to baseline dosing.
prednisone 10 mg Tablet
5 mg PO TUFR
Hold Instructions: HOLD until prednisone dose is tapered down to baseline dosing.
Discharge Orders:
Discharge Patient (As Directed); Ordered 05/28/24
Ordered By: Oskar Briseno
Discharge Date and Time
Print Language: KHMER
--- NOTE | 2024-05-28 13:03 | CM ---
Addendum entered by Chanelle Apodaca 05/28/24 15:48:
Met with patient at bedside
IMM benefit explained; form signed @ [phone]
Addendum entered by Chanelle Apodaca 05/28/24 13:41:
ROBINSON spoke with patient's daughter/primary contact, Yolandadavide Hernandez to discuss discharge plan
Explained that father is eligible for a new Nebulizer and it is on route for delivery today
Daughter is a ENGINEER ASSISTANT; she requested that her father's nurse call her @ #[phone] to review his DC instructions;
and let her know what time her mother should arrive to provide transport home.
CM notified patient's nurse via [employer] Text
Plan: Discharge to [facility] independent living today; will transport; no skilled PT needed
Original Note:
Per Funmilayo @ [facility], patient is eligible for a new Nebulizer; and on route for delivery today
[2024-05-28 15:37] VITALS: BP 120/72
--- NOTE | 2024-05-28 15:54 | PN.CDI ---
CDI
- -
CDI:
Physician Documentation Request
Admit Date: 05/25/24 20:13
Dear Doctor Suzanna,
Patient is admitted with COPD exacerbation and acute tracheobronchitis.
Progress notes include a diagnosis of FAHEEM and also CKD IIIA
Creatinine results
Laboratory Tests
05/25/24 05/26/24 05/28/24
15:53 06:25 06:42
Creatinine 1.5 H 1.5 H 1.6 H
Please clarify which of the following accurately represents the patient's renal status:
____ - �FAHEEM is/was present and is a clinical diagnosis based on (please include this additional
support in the medical record
____ - CKD IIIa only - FAHEEM ruled out
____ - Other
Criteria for FAHEEM*
1 Increase in serum creatinine by > or = to 0.3 mg/dL (> or = to 26.5 micromol/L) within 48 hours, OR
2 Increase in serum creatinine to > or = to 1.5 times baseline, which is known or presumed to have occurred within 7 days, OR
3 Urine volume < 0.5 nL/kg/hour for six hours
Use of terms such as suspected, likely, concern for, or probable (associated with a specific diagnosis that is being evaluated, monitored, or treated as if it exists) are acceptable and can be coded in the inpatient setting, when documented at the
time of discharge.
Thank you,
Kim Quiles RN, BSN
CDI Specialist
tiger text
Please use your independent medical judgment in providing your response.
*Source: Kidney Disease: Improving Global Outcomes (KDIGO) 2012
== END 2024-05-28 16:51 | disposition home or self-care (01) | DRG 191 ==
LOC: 4 WEST ACU 20:13
PROVIDERS: Physician Assistant Medical; Registered Nurse; Student in an Organized Health Care Education/Training Program; ADMITTING PHYSICIAN Internal Medicine; ATTENDING PHYSICIAN Internal Medicine; EMERGENCY PHYSICIAN Emergency Medicine; FAMILY PHYSICIAN Internal Medicine; OTHER PHYSICIAN Internal Medicine Critical Care Medicine
DX: J44.1 Chronic obstructive pulmonary disease with (acute) exacerbation (principal); I13.0 Hypertensive heart and chronic kidney disease with heart failure and stage 1 through stage 4 chronic kidney disease, or unspecified chronic kidney disease; I50.32 Chronic diastolic (congestive) heart failure; J84.9 Interstitial pulmonary disease, unspecified; I48.91 Unspecified atrial fibrillation; I25.10 Atherosclerotic heart disease of native coronary artery without angina pectoris; I48.0 Paroxysmal atrial fibrillation; E03.9 Hypothyroidism, unspecified; G25.0 Essential tremor; G31.84 Mild cognitive impairment of uncertain or unknown etiology; E11.22 Type 2 diabetes mellitus with diabetic chronic kidney disease; F41.9 Anxiety disorder, unspecified; J20.9 Acute bronchitis, unspecified; J44.0 Chronic obstructive pulmonary disease with (acute) lower respiratory infection; J43.2 Centrilobular emphysema; E11.65 Type 2 diabetes mellitus with hyperglycemia; N18.31 Chronic kidney disease, stage 3a; E78.00 Pure hypercholesterolemia, unspecified; F32.9 Major depressive disorder, single episode, unspecified; N40.0 Benign prostatic hyperplasia without lower urinary tract symptoms; K21.9 Gastro-esophageal reflux disease without esophagitis; K74.60 Unspecified cirrhosis of liver; Z11.52 Encounter for screening for COVID-19; Z79.01 Long term (current) use of anticoagulants; Z79.52 Long term (current) use of systemic steroids; Z79.84 Long term (current) use of oral hypoglycemic drugs; Z79.899 Other long term (current) drug therapy; Z87.891 Personal history of nicotine dependence; Z95.3 Presence of xenogenic heart valve; Z95.5 Presence of coronary angioplasty implant and graft
CPT/HCPCS: 71046; 80048; 80053; 82962; 83605; 83735; 83880; 85025; 85027; 87040; 87502; 87811; 93005; 94640; 94669; 97161; 97165; 99285

== ENCOUNTER 2024-06-17 19:58 | Inpatient (IN) | payer OTHER, SELFPAY ==
[2024-06-17] VITALS (7 sets, daily range): BP systolic 108–141; BP diastolic 46–107; BMI 28.3
--- NOTE | 2024-06-17 17:03 | ED.GENMED ---
History of Present Illness
General
Chief Complaint: Cardiac Symptoms
Time Seen by Provider: 06/17/24 16:30
History of Present Illness
History of Present Illness:
84-year-old male with history of CHF with preserved EF, CKD, hypertension, hyperlipidemia, AAS status post TAVR, history of pacemaker presenting to the emergency department for dyspnea on exertion. Patient had recent hospital admission from 05/25 to
05/28 for COPD. Patient had a follow-up with his tenterer yesterday. He passed his 6-minute walk test, however at the end of it, daughter reports he was pale and seemed very out of breath. 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
last night he had a 15 to 20 seconds episode of ventricular tachycardia, advised that he come into the hospital for evaluation. Patient denies any chest pain. He denies any dyspnea at rest. He reports that he overall feels well. Does report that
he has had issues with lower extremity edema, tried increasing his diuretic without significant improvement. Denies dizziness or lightheadedness. Denies additional acute medical complaints
Past History
Past History
ED Past Medical History: CAD, CHF, COPD, HTN, Hypercholesterolemia, NIDDM, Valvular disease, Hypothyroidism, Psychiatric (Anxiety, depression) and Other (PNA, Cirrhosis of the liver)
ED Past Surgical History: Cardiac (Pacemaker, TAVR, Stent X 1)
Social History
Tobacco: Former smoker
Alcohol: Former
Personal:
Living: with family
Employment: Retired
Family History
Family History: Other (Noncontributory)
Phy Exam
Physical Exam
Physical Exam:
General: Well-appearing, no clinical signs of dehydration, nontoxic and in no acute distress
HEENT: protecting airway
Neck: appears supple
CV: Normal heart rate, regular rhythm, no evidence of cyanosis
Resp: No accessory muscle use, no increased work of breathing, lungs clear to auscultation bilaterally
Abd: Soft and non-distended, no tenderness to palpation, normal bowel sounds
Extremities: No deformities, no erythema, pulses and sensation intact. +2 pitting edema bilaterally
Neuro: alert, no focal neurologic deficit
: deferred
Rectal: deferred
Psych: Normal affect
Skin: Intact
Course
Orders/Labs/Results
Orders:
Orders
06/17/24 16:15
Electrocardiogram (*1) Urgent
Reason for Study: Chest Pain
EKG- Treatment ONCE
06/17/24 16:54
CR Chest - 2 Views Urgent
Comment:
Reason For Exam: WEBB
06/17/24 17:07
Complete Blood Count/With Diff Urgent
Comprehensive Metabolic Panel Urgent
NT-proBNP Urgent
Troponin I Urgent
Abnormal Lab Results
06/17/24
17:07
WBC 11.8 H 10^3/uL
(4.8-10.8)
RBC 3.69 L 10^6/uL
(4.70-6.10)
Hgb 9.4 L g/dL
(13.0-18.0)
Hct 29.4 L %
(39.0-52.0)
MCV 79.7 L fL
(80.0-94.0)
MCH 25.5 L pg
(27.0-31.0)
MCHC 32.0 L g/dL
(33.0-37.0)
RDW 18.4 H %
(11.5-14.5)
Abs Immat Gran (auto) 0.1 H 10^3/uL
(0-0.05)
Absolute Neuts (auto) 10.5 H 10^3/uL
(1.4-6.5)
Absolute Lymphs (auto) 0.5 L 10^3/uL
(1.2-3.4)
Absolute Monos (auto) 0.7 H 10^3/uL
(0.1-0.6)
Immature Gran % 0.8 H %
(0-0.5)
Neutrophils % 88.6 H %
(42.2-75.2)
Lymphocytes % 4.6 L %
(20.5-51.1)
BUN 52 H mg/dl
(9-20)
Creatinine 2.2 H mg/dL
(0.7-1.3)
Glucose 208 H mg/dl
(70-99)
Troponin I 0.086 H* ng/ml
Total Protein 5.8 L g/dl
(6.3-8.2)
Albumin 3.4 L g/dl
(3.5-5.0)
06/17/24 17:07
06/17/24 17:07
Vital Signs
Initial and Last Documented VS:
Initial Vital Signs
Temp Pulse Resp BP Pulse Ox
98.5 F 92 16 133/63 98
06/17/24 16:12 06/17/24 16:12 06/17/24 16:12 06/17/24 16:12 06/17/24 16:12
Last Documented Vital Signs
Temp Pulse Resp BP Pulse Ox
98.5 F 92 16 133/63 98
06/17/24 16:12 06/17/24 16:12 06/17/24 16:12 06/17/24 16:12 06/17/24 16:12
MDM/Problems Addressed
MDM/Problems Addressed:
84-year-old male with history of CHF, CKD, hypertension, hyperlipidemia, aortic stenosis status post TAVR, pacemaker presenting for dyspnea on exertion and run of ventricular tachycardia last evening per cardiology. Vital signs on arrival are
normal.
On exam, patient resting comfortably, no acute distress or discomfort. Benign cardiac and pulmonary exam. EKG is an AV dual paced rhythm, without significant change from prior. Patient does have some lower extremity edema, otherwise no
respiratory distress, without significant focal abnormal lung sounds. Suspect mild volume overload state. Likely consistent with congestive heart failure. More concerning is alleged run of ventricular tachycardia last evening. Will interrogate
patient's device and consult cardiology.
17:20 - Per [employer], patient has had 8 runs of ventricular tachycardia since May 20, somewhat nonsustained, however did have 2 episodes last evening, unclear how long they lasted, up to 176 bpm. Device in itself appears to be functioning
appropriately
18:00 -in discussion with cardiology on-call, in agreement the patient should stay in the hospital for monitoring, will see in the morning.
*EKG
Interpreted by ED Provider?: Yes
EKG Intrepretation Date: 06/17/24
EKG Intrepretation Time: 17:09
Interpretation: normal
Comparison EKG: no changes (05/25/24)
Heart Rate: 83
Rate: normal
Rhythm: other (AV dual paced)
[place]: normal axis
Interval: normal interval
QRS Pattern: normal QRS
Ischemia: no ischemia
*Critical Care Note
Total Time (30-74mins, 75-104mins- exclusive of procedures): Not Applicable
ED Attending Note
-
Portions of this chart may have been created with voice recognition software.� Occasional wrong word or��sound alike� substitutions may have occurred due to the inherent limitations of voice recognition software.
Discharge Plan
Departure
Prescriptions:
No Action
levothyroxine 175 MCG tablet
175 mcg PO DAILY
cyanocobalamin (vitamin B-12) 1,000 MCG tablet
1,000 mcg PO QPM
sertraline 50 MG tablet
50 mg PO HS
propranolol 10 MG tablet
10 mg PO QPM
pantoprazole 40 MG tablet,delayed release (DR/EC)
40 mg PO QPM
atorvastatin 40 MG tablet
40 mg PO HS
doxazosin 1 MG tablet
3 mg PO HS
cholecalciferol (vitamin D3) 2,000 UNITS tablet
2,000 units PO QPM
budesonide 0.5 MG/2 ML suspension for nebulization
0.5 mg inhalation R BID 30 Days Qty: 2 0RF
guaifenesin [Mucus Relief ER] 600 MG tablet extended release 12hr
600 mg PO BID
torsemide 20 MG tablet
30 mg PO DAILY
magnesium oxide 400 MG tablet
400 mg PO QPM
Jardiance 10 MG tablet
10 mg PO DAILY
amlodipine 10 MG tablet
10 mg PO DAILY Qty: 0 0RF
acetaminophen [Tylenol Extra Strength] 500 MG tablet
1,000 mg PO TIDPRN PRN (Reason: mild pain)
metolazone 2.5 mg Tablet
2.5 mg PO WESA
prednisone 10 mg Tablet
10 mg PO SUMOWETHSA
prednisone 10 mg Tablet
5 mg PO TUFR
ipratropium-albuterol 0.5 mg-3 mg(2.5 mg base)/3 mL Solution For Nebulization
3 ml INHALATION R TID
torsemide 20 mg Tablet
20 mg PO QPM
azithromycin 250 mg Tablet
250 mg PO QPM
donepezil 10 mg Tablet
10 mg PO HS
glimepiride 1 mg Tablet
1 mg PO DAILY
benzonatate 100 mg Capsule
100 mg PO DAILYPRN PRN (Reason: cough)
simethicone 80 mg Tablet,Chewable
80 mg PO DAILYPRN PRN (Reason: gas/bloating)
Creon 24,000-76,000 -120,000 unit Capsule,Delayed Release(Dr/Ec)
1 cap PO AC
PreserVision AREDS 2,148 mcg-113 mg-45 mg-17.4mg Tablet
1 tab PO BID
calcium-magnesium 500 mg/40 mg tablet
1 tab PO BID
Eliquis 5 MG tablet
2.5 mg PO BID
potassium chloride 20 mEq tablet extended release
20 meq PO DAILY
prednisone 10 mg tablet
10 mg PO DIRECTED Qty: 18 0RF
Rx Instructions:
FOUR tab a day on day #1 and #2. THREE tab a day on day #3 and #4. TWO tab a day on day #5 and #6.
Referrals:
Dexter Meng MD [Family Provider] -
Discharge Date and Time
Print Language: YAKUT
[2024-06-17 17:19] LABS: % Basophils 0.2 % (0-2); % Eosinophils 0.1 % (0-6); % Immature Granulocytes 0.8 % (0-0.5); % Lymphocytes 4.6 % (20.5-51.1); % Monocytes 5.7 % (1.7-9.3); % Neutrophils 88.6 % (42.2-75.2); Absolute Immature Granulocytes 0.1 10^3/uL (0-0.05); Absolute Lymphocytes 0.5 10^3/uL (1.2-3.4); Absolute Monocytes 0.7 10^3/uL (0.1-0.6); Absolute Neutrophils 10.5 10^3/uL (1.4-6.5); Hematocrit 29.4 % (39.0-52.0); Hemoglobin 9.4 g/dL (13.0-18.0); Mean Corpuscular Hgb 25.5 pg (27.0-31.0); Mean Corpuscular Volume 79.7 fL (80.0-94.0); Mean Platelet Volume 10.4 fL (7.4-10.4); Nucleated Red Blood Cells % 0 % (-); Platelet Count 152 10^3/uL (130-400); Red Blood Cell Count 3.69 10^6/uL (4.70-6.10); Red Cell Dist. Width 18.4 % (11.5-14.5); White Blood Cell Count 11.8 10^3/uL (4.8-10.8)
[2024-06-17 17:42] LABS: ALT (SGPT) 32 U/L (0-50); AST (SGOT) 28 U/L (17-59); Albumin 3.4 g/dl (3.5-5.0); Alkaline Phosphatase 82 U/L (38-126); Blood Urea Nitrogen 52 mg/dl (9-20); Calcium 8.4 mg/dl (8.4-10.2); Carbon Dioxide 28 mmol/L (22-30); Chloride 101 mmol/L (98-107); Glucose 208 mg/dl (70-99); Potassium 3.8 mmol/L (3.5-5.1); Sodium 138 mmol/L (135-145); Total Bilirubin 0.3 mg/dl (0.2-1.3); Total Protein 5.8 g/dl (6.3-8.2); eGFR 28.81
[2024-06-17 17:50] LABS: NT-proBNP 2500 pg/ml; Troponin I 0.086 ng/ml
--- NOTE | 2024-06-17 19:13 | HPS.HSE ---
Family Physician
-
Family Physician: Dexter Meng
Chief Complaint
-
shortness of breath and lower extremity swelling
History of Present Illness
Mr. 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
COPD exacerbation presents to the ER with increased swelling and shortness of breath.
Patient states that he wasn't feeling well past few days, his legs were swollen. He denies chest pain or shortness of breath. His home Torsemide dosing is 40qAM; 20qPM and for several days and he recently increased to 60qAM for several days, now
back on home dosing. No fevers/chills. No nausea/vomiting/diarrhea. + increased LE swelling. No rash.
Medical History
Past Medical History
Past Medical History: Reports Other
Additional Past Medical History:
Coronary Artery Disease s/p LAD Stent in 2012
Chronic HFpEF
Aortic Stenosis s/p TAVR
Paroxysmal Atrial Fibrillation
Heart Block/SSS s/p Pacemaker
Essential Hypertension
Hyperlipidemia
Diabetes Mellitus, Type II
COPD / Interstitial Lung Disease
Hypothyroidism
Essential Tremor
Mild Cognitive Impairment
Anxiety/Depression
BPH
GERD
Past Surgical History: Reports Other
Additional Past Surgical History:
Partial Colon Resection
TAVR
PPM Placement
Social History
Tobacco: Former Smoker (Quit in 2013)
Family History
Family History: Not pertinent
Allergies / Home Medications
Allergies reflects when Allergies were last updated in [employer].
Home Medications with original date entered in [employer]
Allergy/Medication List:
Allergies
Allergy/AdvReac Type Severity Reaction Status Date / Time
No Known Allergies Allergy Verified 06/17/24 16:14
Home Medications
cyanocobalamin (vitamin B-12) 1,000 mcg tablet 1,000 mcg PO QPM Supplement 01/13/20
levothyroxine 175 mcg tablet 175 mcg PO DAILY Thyroid 01/13/20
sertraline 50 mg tablet 50 mg PO HS Mental Health/Anxiety 01/13/20
atorvastatin 40 mg tablet 40 mg PO HS High cholesterol 05/15/20
pantoprazole 40 mg tablet,delayed release 40 mg PO QPM Gastrointestinal issue 05/15/20
propranolol 10 mg tablet 10 mg PO QPM Mental Health/Anxiety 05/15/20
doxazosin 1 mg tablet 3 mg PO HS 03/28/21
budesonide 0.5 mg/2 mL suspension for nebulization 0.5 mg (2 mL) inhalation R BID 30 days ##2 05/07/21
guaifenesin 600 mg tablet, extended release 12 hr (Mucus Relief ER) 600 mg PO BID Lung/breathing issues 03/15/22
magnesium oxide 400 mg PO QPM Supplement 03/15/22
torsemide 20 mg tablet 30 mg PO DAILY Fluid retention/Swelling 03/15/22
empagliflozin 10 mg tablet (Jardiance) 10 mg PO DAILY 04/10/22
amlodipine 10 mg tablet 10 mg PO DAILY Blood pressure ##0 05/07/22
acetaminophen 500 mg tablet (Tylenol Extra Strength) 1,000 mg PO TIDPRN PRN mild pain 10/17/23
apixaban 5 mg tablet (Eliquis) 2.5 mg PO BID 05/25/24
azithromycin 250 mg tablet 250 mg PO QPM 05/25/24
benzonatate 100 mg capsule 100 mg PO DAILYPRN PRN cough 05/25/24
calcium-magnesium 1 tab PO BID 05/25/24
donepezil 10 mg tablet 10 mg PO HS 05/25/24
glimepiride 1 mg tablet 1 mg PO DAILY 05/25/24
ipratropium 0.5 mg-albuterol 3 mg (2.5 mg base)/3 mL nebulization soln 3 ml inhalation R TID 05/25/24
vdenym-smtyijkb-lsiblhp 24,000-76,000-120,000 unit capsule,delayed rel (Creon) 1 cap PO AC 05/25/24
metolazone 2.5 mg tablet 2.5 mg PO WESA 05/25/24
potassium chloride 20 mEq tablet,extended release 20 meq PO DAILY 05/25/24
prednisone 10 mg tablet 10 mg PO DAILY 05/25/24
simethicone 80 mg chewable tablet 80 mg PO DAILYPRN PRN gas/bloating 05/25/24
torsemide 20 mg tablet 20 mg PO QPM 05/25/24
vitamins A,C,B-qypy-mfpvlx 2,148 mcg-113 mg-45 mg-17.4 mg tablet (PreserVision AREDS) 1 tab PO BID 05/25/24
cholecalciferol (vitamin D3) 25 mcg (1,000 unit) tablet 25 mcg PO QPM 06/17/24
insulin aspart U-100 100 unit/mL (3 mL) subcutaneous pen (Novolog FlexPen U-100 Insulin aspart) 0 sliding scale dose SC AC 06/17/24
Review of Systems
-
History Source: Patient
A 12 point ROS was completed and negative except as noted: Yes
Physical Exam
Vital Signs
Vital Signs
Temp Pulse Resp BP Pulse Ox
98.5 F 92 16 133/63 98
06/17/24 16:12 06/17/24 16:12 06/17/24 16:12 06/17/24 16:12 06/17/24 16:12
Physical Exam
General: No Apparent Distress
HEENT: PERRLA
Respiratory: Rales
Cardiac: S1/S2 and Regular Rhythm
GI: Soft, Non Tender and Non Distended
Musculoskeletal: Edema, Left Lower Extremity and Edema, Right Lower Extremity
Skin: Warm and Dry; No Rash
Neuro: AO x 3
Psych: Calm
Laboratory Results
-
07/18/24 17:07
06/17/24 17:07
Laboratory Results
Total Bilirubin 0.3 mg/dl (0.2-1.3) 06/17/24 17:07
AST 28 U/L (17-59) 06/17/24 17:07
ALT 32 U/L (0-50) 06/17/24 17:07
Alkaline Phosphatase 82 U/L (38-126) 06/17/24 17:07
Troponin I 0.086 ng/ml H* 06/17/24 17:07
Data Reviewed
-
Diagnostic Radiology: Report Reviewed by me
Lab Data: Labs Reviewed by me
Impression/Plan
-
Mr. 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
COPD exacerbation presents to the ER with increased swelling and shortness of breath.
Triage VS: T 98.5, P 92, RR 16, BP 133/63, SpO2 98%
LABS: WBC 11.8, Hg 9.4, PLT 152, Na 138, K+ 3.8, Cl 101, BUN 52, Cr 2.2 (baseline 1.4-1.6), Glucose 208
Trop 0.086, BNP 2500
EKG: AV dual paced rhythm
TTE 10/31/23
CONCLUSIONS
Normal left ventricular chamber size.
Left ventricular ejection fraction is 60-65% by visual assessment.
Mild concentric left ventricular hypertrophy.
Normal right ventricular size and function.
Dense mitral annular calcification.
There is a mean gradient across the valve of 7 mmHg.
Well seated #26 mm Fleming S3 TAVR with peak/mean gradients across the valve of
19/12 mmHg.
Trace paravalvular aortic regurgitation.
Trace tricuspid regurgitation.
Estimated pulmonary artery pressure of 33 mmHg, assuming a right atrial
pressure of 3 mmHg.
Trace pulmonic regurgitation.
The IVC is of normal size and demonstrates normal respiratory variation.
Compared to 10/2022 echocardiogram mean/peak gradients across the tricuspid
valve are stable
CXR 06/17/24
IMPRESSION:
Mild congestive heart failure.
Heart Failure preserved EF acute exacerbation
-patient is on Torsemide 40qAM; 20qPM at home
-admit to tele
-lasix 60mg IV BID
-repeat TTE
-daily weights, strict I/O, fluid restriction
-cardiology consult
Paroxysmal Atrial Fibrillation
Sinus Bradycardia s/p PPM
NSVT seen on PPM - 20 seconds
-case discussed with Dr. Peña
-will continue [employer]ACHINIST INSTRU[employer] Propranolol for now; consider amio gtt overnight if return NSVT
-TTE tomorrow as above
-monitor K/Mag
acute on Chronic kidney disease
-baseline creatinine 1.4-1.6
-monitor renal function with diuresis
Non-OR Troponin Elevation
-no chest pain
-trend
Essential Hypertension
-[employer] Amlodipine
HLD
-M[employer]IST IN[employer] Statin
DM2
-hold [employer] Glimepiride
-ISS low
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
COPD
Hx Tobacco Use
-MACHINIST INSTRUCTOR inhalers
-MACHINIST INSTRUCTOR daily prednisone
Hypothyroidism
-[employer] IN[employer]CTOR Synthroid
GERD
-[employer] Protonix
Anxiety/Depression
-MACHINIST INSTRUCTOR Sertraline
DVT PPx Eliquis
DNR/DNI
76 minutes spent on patient evaluation, medical decision making, coordination of care
[2024-06-17] MEDS: KCL 10 MEQ PO (20:10)
[2024-06-17] MEDS: ELIQUIS 2.5 MG PO (20:11)
[2024-06-17] MEDS: LASIX 60 MG IV (20:13)
[2024-06-17 20:31] LABS: Magnesium 1.9 mg/dl (1.6-2.3)
[2024-06-17 21:20] LABS: Glucose - Point of Care 211 mg/dl (70-99)
[2024-06-17] MEDS: LIPITOR 40 MG PO (21:41)
[2024-06-17] MEDS: ZOLOFT 50 MG PO (21:41)
[2024-06-17] MEDS: PROTONIX 40 MG PO (21:41)
[2024-06-17] MEDS: ARICEPT 10 MG PO (21:41)
[2024-06-17] MEDS: ZITHROMAX 250 MG PO (21:41)
[2024-06-17] MEDS: MUCINEX 600 MG PO (21:41)
[2024-06-17] MEDS: CARDURA 3 MG PO (21:42)
[2024-06-17] MEDS: INDERAL 10 MG PO (21:42)
[2024-06-17] MEDS: PULMICORT 0.5 MG INH (21:51)
[2024-06-17] MEDS: DUONEB 3 ML INH (21:51)
--- NOTE | 2024-06-17 23:26 | PTCARENOTE ---
Received pt from ER at 2130. AAOx3, VSS, ambulatory in room. Oriented to room, call [facility] and plan of care.
[2024-06-18 03:20] VITALS: BP 105/49
[2024-06-18] MEDS: SYNTHROID 175 MCG PO (05:20)
[2024-06-18 06:00] VITALS: BMI 27.7
[2024-06-18 07:38] LABS: Glucose - Point of Care 133 mg/dl (70-99)
[2024-06-18 07:56] LABS: Troponin I 0.098 ng/ml
[2024-06-18 08:00] VITALS: BP 130/98
[2024-06-18 08:02] LABS: Hematocrit 31.9 % (39.0-52.0); Hemoglobin 10.1 g/dL (13.0-18.0); Mean Corp Hgb Conc. 31.7 g/dL (33.0-37.0); Mean Corpuscular Hgb 25.8 pg (27.0-31.0); Mean Corpuscular Volume 81.4 fL (80.0-94.0); Mean Platelet Volume 10.9 fL (7.4-10.4); Platelet Count 155 10^3/uL (130-400); Red Blood Cell Count 3.92 10^6/uL (4.70-6.10); White Blood Cell Count 11.8 10^3/uL (4.8-10.8)
[2024-06-18] MEDS: NOVOLOG FLEXPEN-LOW RESISTANCE SC ×2 (08:13→14:03)
[2024-06-18] MEDS: ELIQUIS 2.5 MG PO (08:15)
[2024-06-18] MEDS: PULMICORT 0.5 MG INH ×2 (08:16→20:09)
[2024-06-18] MEDS: LASIX 60 MG IV ×2 (08:16→16:15)
[2024-06-18] MEDS: MUCINEX 600 MG PO ×2 (08:16→19:47)
[2024-06-18] MEDS: DELTASONE 10 MG PO (08:16)
[2024-06-18] MEDS: DUONEB 3 ML INH ×3 (08:16→20:09)
[2024-06-18] MEDS: NORVASC 10 MG PO (08:16)
[2024-06-18] MEDS: JARDIANCE 10 MG PO (08:16)
[2024-06-18] MEDS: ZENPEP DELAYED RELEASE CAPSULE 2 CAPSULE PO ×3 (08:16→16:11)
[2024-06-18 08:21] LABS: Blood Urea Nitrogen 48 mg/dl (9-20); Calcium 8.8 mg/dl (8.4-10.2); Carbon Dioxide 28 mmol/L (22-30); Chloride 103 mmol/L (98-107); Estimated Creatinine Clearance 35 ml/min; Glucose 101 mg/dl (70-99); Magnesium 1.9 mg/dl (1.6-2.3); Potassium 3.2 mmol/L (3.5-5.1); Sodium 141 mmol/L (135-145); eGFR 42.22
[2024-06-18 08:47] LABS: TSH Reflex To Free T4 1.63 uIU/ml (0.47-4.68)
[2024-06-18] MEDS: KCL 40 MEQ PO (10:19)
[2024-06-18] MEDS: KCL 270 MEQ IV (10:20)
--- NOTE | 2024-06-18 10:27 | CON.CAR ---
Addendum entered and electronically signed by Armen Goodwin MD 06/18/24 16:58:
I updated daughter and patient by telephone call. Plan for catheterization on Thursday 06/21. Will hold Eliquis.
Addendum entered and electronically signed by Armen Goodwin MD 06/18/24 16:32:
I saw and examined the patient.
The LITHARGE MILL OPERATOR or PA's note was reviewed and I agree with the note.
Comment: General: Well developed, well nourished in NAD.
Neck: Supple, no JVD, HJR, carotids +2 B/L, no bruits bilaterally.
Heart: Non displaced PMI, RRR, no murmurs, No S3, S4, no rubs.
Lungs: Scattered rhonchi
Extremities: No clubbing, cyanosis or edema bilaterally.
Neuro: Grossly nonfocal, awake, alert and oriented x3.
Geoffrey has a h/o chronic diastolic CHF, PAF status post pacemaker on chronic Eliquis, CAD status post LAD PCI and TAVR in 2019, COPD, hypertension, hyperlipidemia, diabetes. He presents for evaluation of shortness of breath and lower extremity
edema. In addition was noted to have by report the episode of V. tach on outpatient pacemaker check.
He feels much better since admission. However given nonsustained V. tach he warrants ischemic evaluation. Will hold Eliquis and plan on catheterization on Thursday 06/21. Will change propranolol to Toprol. Discussed with patient and daughter who is
a nurse practitioner at bedside.
Original Note:
Consultation
Consultation Request
Date/Time Consultation Requested: 06/18/2024
Date/Time Consultation Performed: 06/18/2024
Requesting Provider: Dr. Cortes
Performing Provider: Dr. Goodwin
Reason for Consultation: CHF, NSVT
Medical History
-
History of Present Illness:
HPI: Geoffrey is an 84 year old male with PMH of chronic HFpEF, paroxysmal atrial fibrillation, CAD s/p LAD PCI, TAVR, PPM, COPD, carotid stenosis, hypertension, hyperlipidemia, hypothyroidism, DM, and frequent PVCs who presented to [facility] for evaluation
of SOB and LE edema. He had noted recently an increase in his SOB with associated weight gain and increased LE edema. He called the cardiology office and was placed on higher dose diuretic for a few days, however did not note any improvement. He
then called 06/17 stating he was feeling generally unwell and he sent a remote transmission to the device clinic. He was found to have a 15-20 second run of NSVT around 3AM. Given NSVT with concern for acute heart failure, he was sent to [facility] for
further evaluation. In ER, he was found to be in acute heart failure by CXR with proBNP 2500. He was started on IV lasix and reports he has been responding well to this overnight. His weight has come down and his breathing and edema are improving.
PMH:
Chronic HFpEF
Paroxysmal atrial fibrillation
Chronic Eliquis anticoagulation
CAD
s/p BLADIMIR to mid LAD 01/13/2020
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
COPD
Carotid stenosis
Hypertension
Hyperlipidemia
Hypothyroidism
Type 2 DM
Frequent PVCs, NSVT
Past Medical History
Past Medical History: Other (In HPI)
Past Surgical History: Cardiac (LAD PCI 01/2020, TAVR 05/2020, PPM 05/2020) and Other (b/l cataract surgery, colon resection, R FELIPA 05/2022)
Social History
Tobacco: Former Smoker
Alcohol: None
Drug: None
Employment: Retired
Family History
Family History: Reviewed & Not Pertinent
Allergies / Home Medications
Allergy/AdvReac Type Severity Reaction Status Date / Time
No Known Allergies Allergy Verified 06/17/24 16:14
�Medication �Instructions �Recorded �Confirmed �Type
cyanocobalamin (vitamin B-12) 1,000 mcg PO QPM Supplement 01/13/20 06/17/24 History
1,000 mcg tablet
levothyroxine 175 mcg tablet 175 mcg PO DAILY Thyroid 01/13/20 06/17/24 History
sertraline 50 mg tablet 50 mg PO HS Mental Health/Anxiety 01/13/20 06/17/24 History
atorvastatin 40 mg tablet 40 mg PO HS High cholesterol 05/15/20 06/17/24 History
pantoprazole 40 mg tablet,delayed 40 mg PO QPM Gastrointestinal issue 05/15/20 06/17/24 History
release
propranolol 10 mg tablet 10 mg PO QPM Mental Health/Anxiety 05/15/20 06/17/24 History
doxazosin 1 mg tablet 3 mg PO HS Blood Pressure 03/28/21 06/17/24 History
budesonide 0.5 mg/2 mL suspension 0.5 mg (2 mL) inhalation R BID 30 05/07/21 06/17/24 Rx
for nebulization days ##2
guaifenesin 600 mg tablet, 600 mg PO BID Lung/breathing issues 03/15/22 06/17/24 History
extended release 12 hr (Mucus
Relief ER)
magnesium oxide 400 mg PO QPM Supplement 03/15/22 06/17/24 History
torsemide 20 mg tablet 30 mg PO DAILY Fluid 03/15/22 06/17/24 History
retention/Swelling
empagliflozin 10 mg tablet 10 mg PO DAILY Diabetes 04/10/22 06/17/24 History
(Jardiance)
amlodipine 10 mg tablet 10 mg PO DAILY Blood pressure ##0 05/07/22 06/17/24 Rx
acetaminophen 500 mg tablet 1,000 mg PO TIDPRN PRN mild pain 10/17/23 06/17/24 History
(Tylenol Extra Strength)
apixaban 5 mg tablet (Eliquis) 2.5 mg PO BID Blood Clot 05/25/24 06/17/24 History
Prevention/Tx
azithromycin 250 mg tablet 250 mg PO QPM Infection 05/25/24 06/17/24 History
benzonatate 100 mg capsule 100 mg PO DAILYPRN PRN cough 05/25/24 06/17/24 History
calcium-magnesium 1 tab PO BID Supplement 05/25/24 06/17/24 History
donepezil 10 mg tablet 10 mg PO HS Mental Health/Anxiety 05/25/24 06/17/24 History
glimepiride 1 mg tablet 1 mg PO DAILY Diabetes 05/25/24 06/17/24 History
ipratropium 0.5 mg-albuterol 3 mg 3 ml inhalation R TID 05/25/24 06/17/24 History
(2.5 mg base)/3 mL nebulization Lung/Breathing Issues
soln
gcncuk-gtudxysi-prewebx 1 cap PO AC ENZYME 05/25/24 06/17/24 History
24,000-76,000-120,000 unit
capsule,delayed rel (Creon)
metolazone 2.5 mg tablet 2.5 mg PO WESA Fluid 05/25/24 06/17/24 History
Retention/Swelling
potassium chloride 20 mEq 20 meq PO DAILY Supplement 05/25/24 06/17/24 History
tablet,extended release
prednisone 10 mg tablet 10 mg PO DAILY Anti-Inflammatory 05/25/24 06/17/24 History
simethicone 80 mg chewable tablet 80 mg PO DAILYPRN PRN gas/bloating 05/25/24 06/17/24 History
torsemide 20 mg tablet 20 mg PO QPM Fluid 05/25/24 06/17/24 History
Retention/Swelling
vitamins A,C,Q-kraj-ismhqf 2,148 1 tab PO BID Supplement 05/25/24 06/17/24 History
mcg-113 mg-45 mg-17.4 mg tablet
(PreserVision AREDS)
cholecalciferol (vitamin D3) 25 25 mcg PO QPM Supplement 06/17/24 06/17/24 History
mcg (1,000 unit) tablet
insulin aspart U-100 100 unit/mL 0 sliding scale dose SC AC Diabetes 06/17/24 06/17/24 History
(3 mL) subcutaneous pen (Novolog
FlexPen U-100 Insulin aspart)
Review of Systems
-
History Source: Patient
All other systems: Negative unless noted
Physical Exam
Vital Signs
Temp Pulse Resp BP Pulse Ox
97.4 F 73 16 130/98 95
06/18/24 08:00 06/18/24 08:21 06/18/24 08:21 06/18/24 08:00 06/18/24 08:21
Lab Results
06/18/24 07:21
06/18/24 07:21
Troponin I 0.098 ng/ml H* D 06/18/24 07:21
Tkx-B-Iabvfbcfikw Pept 2500 pg/ml 06/17/24 17:07
Physical Exam
General: Well Developed, Well Nourished and No Apparent Distress
HEENT: Normocephalic, Anicteric and Moist Mucous Membranes
Respiratory: Crackles and Non Labored Respirations
Cardiac: S1/S2, Regular Rhythm and Murmur
Musculoskeletal: No Clubbing, No Cyanosis and Edema
Skin: Warm and Dry
Neuro: AO x 3 and Nonfocal/Grossly Intact
Psych: Calm
Impression / Plan
-
PCP: Dr. Meng
Tire Trucker: Dr. Deana Palomino
Impression:
Presented with SOB, weight gain
Acute on chronic HFpEF
15-20 second run on NSVT @ 3AM 06/16 by device check
Elevated troponin
FAHEEM on CKD
Paroxysmal atrial fibrillation
Chronic Eliquis anticoagulation
CAD
s/p BLDAIMIR to mid LAD 01/13/2020
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
COPD
Carotid stenosis
Hypertension
Hyperlipidemia
Hypothyroidism
Type 2 DM
Frequent PVCs
Echo 10/31/2023: EF 60-65%, mild cLVH, dense MAC, well seated TAVR with peak/mean gradients 19/12 mmHg, trace TR, estimated PAP 33 mmHg
Echo 06/18/2024: Study pending
Plan:
-Presented with SOB, weight gain, and edema. Had been placed on higher dose diuretic as OP, however did not notice improvement with this.
-Diuresing with IV lasix 60mg BID. Weight down to 193lbs 06/18. Creat down from 2.2 on arrival, now at 1.6 on 06/18.
-Continue daily weights, I&Os.
-Continue Jardiance 10mg daily.
-15-20 seconds of NSVT noted on remote device check 06/16. Previously noted to have runs of 3-5 seconds, has been asymptomatic.
-No further NSVT noted on tele overnight. Would follow for more and if noted, may consider amiodarone.
-EKG reviewed. AV paced, stable.
-Would continue propranolol 10mg daily for now.
-Check echo given heart failure and NSVT.
-Elevated troponin noted, peaking at 0.860, trending down thereafter. Suspect nonischemic myocardial injury in the setting of acute heart failure and FAHEEM.
-K 3.2, agree w/ repletion. Mag 1.9.
-TSH 1.63
HPI: Geoffrey is an 84 year old male with PMH of chronic HFpEF, paroxysmal atrial fibrillation, CAD s/p LAD PCI, TAVR, PPM, COPD, carotid stenosis, hypertension, hyperlipidemia, hypothyroidism, DM, and frequent PVCs who presented to [facility] for evaluation
of SOB and LE edema. He had noted recently an increase in his SOB with associated weight gain and increased LE edema. He called the cardiology office and was placed on higher dose diuretic for a few days, however did not note any improvement. He
then called 06/17 stating he was feeling generally unwell and he sent a remote transmission to the device clinic. He was found to have a 15-20 second run of NSVT around 3AM. Given NSVT with concern for acute heart failure, he was sent to [facility] for
further evaluation. In ER, he was found to be in acute heart failure by CXR with proBNP 2500. He was started on IV lasix and reports he has been responding well to this overnight. His weight has come down and his breathing and edema are improving.
Data Reviewed
-
EKG: Tracing Personally Visualized and interpreted
Radiology: Report Reviewed by me
Labs: Labs Reviewed by me
Old Records: Reviewed
--- NOTE | 2024-06-18 10:49 | CM ---
Patient seen bedside, initial assessment completed- patient reports nothing has changed since last admission. Patient resides with his at [facility]. Patient denies the use of DME, VN, or SNF. Patient confirms PCP Dexter Meng,
pharmacy [facility] in [place], confirms prescription coverage. No food, transportation, housing/utility insecurities at home. CM will continue to follow for all discharge planning needs.
Plan; home no needs anticipated.
[2024-06-18 12:39] LABS: Glucose - Point of Care 169 mg/dl (70-99)
--- NOTE | 2024-06-18 13:38 | W.PN.HOSP.TC ---
Today's Communication/Plan
-
see above
Assessment / Plan
Assessment / Plan
NAD, resting comfortably in bed
Scleral anicteric
Moist mucous membranes
No JVD
Bibasilar crackles
Normal S1-S2 no murmurs
Soft nontender nondistended bowel sounds active
Peripheral pitting edema +1
Moves extremities spontaneously
AA
Acute on chronic HFpEF
-continue iv lasix
-keep k >4
-keep mg >2
-repeat tte
daily weight
-monitor uop
-follow renal function
-monitor on tele
nsvt
on propanolol, not sure if this is the best agent for him, would consider a nonselective bb
would appreciate cards input before making change
keep k >4
mg >2
pafib
conitnue tele
ocntinue propranolol
continue elquis
hld
continue statin
gerd continue ppi
Anticipated Discharge: 24 - 48 hours
Subjective/Interval History
-
Date of Service: June 18, 2024
seen and examined. no new complaints.
feeling better
presented for vt
asking if he will be going home today because his son is flying in and has not seen him in more then a year. they have plans.
Objective Data
-
Labs:
Laboratory Results
06/18/24
07:21
WBC 11.8 H
Hgb 10.1 L
Hct 31.9 L
Plt Count 155
Sodium 141
Potassium 3.2 L
Chloride 103
Carbon Dioxide 28
BUN 48 H
Creatinine 1.6 H
Glucose 101 H
Calcium 8.8
Vital Signs:
Vital Signs
Temp Pulse Resp BP Pulse Ox
97.4 F 70 16 130/98 95
06/18/24 08:00 06/18/24 13:34 06/18/24 13:34 06/18/24 08:00 06/18/24 08:21
[2024-06-18 14:05] LABS: Glucose - Point of Care 159 mg/dl (70-99)
[2024-06-18 15:03] VITALS: BP 128/101
[2024-06-18] MEDS: TOPROL XL 25 MG PO (16:11)
--- NOTE | 2024-06-18 16:34 | W.CARD.DEVCH ---
Cardiac Device Check
-
Device: Pacemaker
Remodeler: Medtronic
The patient's device was interrogated with assistance of the device sales and merchandising representative followed by a complete physician review. Approximately 20 second episode of VT noted at 00:03 on 06/16. Termination not seen. Adjustments made by device rep to better
detect/record episodes of VT in the future.
[2024-06-18 17:05] LABS: Glucose - Point of Care 246 mg/dl (70-99)
[2024-06-18] MEDS: PROTONIX 40 MG PO (17:57)
[2024-06-18] MEDS: MAG-TAB SR 84 MG PO (17:57)
[2024-06-18] MEDS: ZITHROMAX 250 MG PO (17:57)
[2024-06-18] MEDS: NOVOLOG FLEXPEN-LOW RESISTANCE 2 UNITS SC (17:57)
[2024-06-18 19:15] VITALS: BP 118/59
[2024-06-18 21:00] LABS: Glucose - Point of Care 288 mg/dl (70-99)
[2024-06-18] MEDS: LIPITOR 40 MG PO (21:22)
[2024-06-18] MEDS: ZOLOFT 50 MG PO (21:22)
[2024-06-18] MEDS: ARICEPT 10 MG PO (21:22)
[2024-06-18] MEDS: CARDURA 3 MG PO (21:22)
[2024-06-18 23:05] VITALS: BP 108/53
[2024-06-19 03:05] VITALS: BP 100/61
[2024-06-19 06:00] VITALS: BMI 27.7
[2024-06-19] MEDS: SYNTHROID 175 MCG PO (06:17)
[2024-06-19 06:24] LABS: Glucose - Point of Care 121 mg/dl (70-99)
[2024-06-19] MEDS: PULMICORT 0.5 MG INH ×2 (07:16→20:15)
[2024-06-19] MEDS: DUONEB 3 ML INH ×3 (07:16→20:15)
[2024-06-19] MEDS: NOVOLOG FLEXPEN-LOW RESISTANCE SC (07:22)
[2024-06-19 07:37] VITALS: BP 136/61
[2024-06-19] MEDS: JARDIANCE 10 MG PO (07:58)
[2024-06-19] MEDS: MUCINEX 600 MG PO ×2 (07:58→20:16)
[2024-06-19] MEDS: NORVASC 10 MG PO (07:58)
[2024-06-19] MEDS: DELTASONE 10 MG PO (07:59)
[2024-06-19] MEDS: LASIX 60 MG IV (07:59)
[2024-06-19] MEDS: TOPROL XL 25 MG PO (07:59)
[2024-06-19] MEDS: ZENPEP DELAYED RELEASE CAPSULE 2 CAPSULE PO ×3 (08:03→16:57)
--- NOTE | 2024-06-19 08:16 | W.PN.CARDCBS ---
Addendum entered and electronically signed by Armen Goodwin MD 06/19/24 11:33:
Correction will change to torsemide. Patient was on 30/ dosing at home and will change to 30 p.o. twice daily
Addendum entered and electronically signed by Armen Goodwin MD 06/19/24 11:31:
I saw and examined the patient.
The SHOE PACKER or PA's note was reviewed and I agree with the note.
Comment: General: Well developed, well nourished in NAD.
Neck: Supple, no JVD, HJR, carotids +2 B/L, no bruits bilaterally.
Heart: Non displaced PMI, RRR, no murmurs, No S3, S4, no rubs.
Lungs: Clear to auscultation bilaterally, no wheeze, rhonchi, rubs bilaterally,
normal expiratory phase.
Extremities: No clubbing, cyanosis or edema bilaterally.
Neuro: Grossly nonfocal, awake, alert and oriented x3.
He seems to be stable from a CHF standpoint. Weight seems to have plateaued. Will change to oral Lasix. Reviewed telemetry with 6 beat episode of V. tach. Plan is for cardiac catheterization on 06/21 to exclude CAD as cause of VT. Toprol has
been added. May need to consider upgrade of pacer to AICD depending on results.
Original Note:
Today's Communication / Plan
-
Start IV heparin while Eliquis on hold
Cath Friday.
Continue Toprol
Continue IV lasix for now. Await AM labs.
Impression / Plan
-
PCP: Dr. Meng
Seismographer: Dr. Deana Palomino
Impression:
Presented with SOB, weight gain
Acute on chronic HFpEF
15-20 second run on NSVT @ 12:03AM 06/16 by device check
Elevated troponin
FAHEEM on CKD
Paroxysmal atrial fibrillation
Chronic Eliquis anticoagulation
CAD
s/p BLADIMIR to mid LAD 01/13/2020
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
COPD
Carotid stenosis
Hypertension
Hyperlipidemia
Hypothyroidism
Type 2 DM
Frequent PVCs
Echo 10/31/2023: EF 60-65%, mild cLVH, dense MAC, well seated TAVR with peak/mean gradients 19/12 mmHg, trace TR, estimated PAP 33 mmHg
Echo 06/18/2024: EF 50-55%, stage II diastolic dysfunction, mild-moderate MS, moderate MR, s/p TAVR with peak/mean gradients 25/17 mmHg, trace AR, trace TR, estimated PAP 30 mmHg.
Plan:
-Presented with SOB, weight gain, and edema. Had been placed on higher dose diuretic as OP, however did not notice improvement with this.
-Diuresing with IV lasix 60mg BID. Weight down to 193lbs 06/19.
-Creat 2.2 on arrival, improved to 1.6 on 06/18. Creat pending 06/19.
-Continue daily weights, I&Os.
-Continue Jardiance 10mg daily.
-15-20 seconds of NSVT noted on remote device check 06/16. Previously noted to have runs of 3-5 seconds, has been asymptomatic.
-No further NSVT noted on tele overnight. Would follow for more and if noted, may consider amiodarone.
-Propranolol transitioned to Toprol 25mg daily. BP and HR stable. Uptitrate as able.
-Elevated troponin noted, peaking at 0.860, trending down thereafter.
-With now longer runs of VT noted as well as elevated troponin, plan is for [facility] on Friday, 06/21.
-Eliquis on hold in preparation for cath. Will start heparin.
-Echo 06/18 with EF 50-55% with moderate MR and stable TAVR.
HPI: Geoffrey is an 84 year old male with PMH of chronic HFpEF, paroxysmal atrial fibrillation, CAD s/p LAD PCI, TAVR, PPM, COPD, carotid stenosis, hypertension, hyperlipidemia, hypothyroidism, DM, and frequent PVCs who presented to [facility] for evaluation
of SOB and LE edema. He had noted recently an increase in his SOB with associated weight gain and increased LE edema. He called the cardiology office and was placed on higher dose diuretic for a few days, however did not note any improvement. He
then called 06/17 stating he was feeling generally unwell and he sent a remote transmission to the device clinic. He was found to have a 15-20 second run of NSVT around 3AM. Given NSVT with concern for acute heart failure, he was sent to [facility] for
further evaluation. In ER, he was found to be in acute heart failure by CXR with proBNP 2500. He was started on IV lasix and reports he has been responding well to this overnight. His weight has come down and his breathing and edema are improving.
Progress Note - Seismographer
Subjective
Date of Service: June 19, 2024
No complaints. Feeling well.
Objective
Labs:
06/18/24 07:21
Labs
Hgb 10.1 g/dL (13.0-18.0) L 06/18/24 07:21
Hct 31.9 % (39.0-52.0) L 06/18/24 07:21
Plt Count 155 10^3/uL (130-400) 06/18/24 07:21
Sodium 141 mmol/L (135-145) 06/18/24 07:21
Potassium 3.2 mmol/L (3.5-5.1) L 06/18/24 07:21
BUN 48 mg/dl (9-20) H 06/18/24 07:21
Creatinine 1.6 mg/dL (0.7-1.3) H 06/18/24 07:21
Glucose 101 mg/dl (70-99) H 06/18/24 07:21
Troponins
06/17/24 06/18/24 06/18/24
17:07 01:19 07:21
Troponin I 0.086 H* 0.860 H* 0.098 H* D
Vital Signs and I&O:
Vital Signs
Temp Pulse Resp BP Pulse Ox
98.9 F 87 19 136/61 93
06/19/24 07:37 06/19/24 07:37 06/19/24 07:37 06/19/24 07:37 06/19/24 07:37
Vital Signs
Temp Pulse Resp BP Pulse Ox
98.9 F 87 19 136/61 93
06/19/24 07:37 06/19/24 07:37 06/19/24 07:37 06/19/24 07:37 06/19/24 07:37
Physical Exam
Physical Exam
GEN: No distress, awake, alert, oriented x3
HEENT: supple, anicteric, mmm
LUNGS: CTA b/l, no wheezes/rales
CV: Reg, S1/S2, 1/6 murmur
EXT: No clubbing or cyanosis, trace edema
NEURO: Gross non-focal
SKIN: Warm, dry, no rash
[2024-06-19 09:41] LABS: Blood Urea Nitrogen 41 mg/dl (9-20); Calcium 8.8 mg/dl (8.4-10.2); Carbon Dioxide 27 mmol/L (22-30); Chloride 102 mmol/L (98-107); Estimated Creatinine Clearance 44 ml/min; Glucose 212 mg/dl (70-99); Potassium 4.7 mmol/L (3.5-5.1); Sodium 141 mmol/L (135-145); eGFR 54.17
[2024-06-19 09:52] LABS: Hematocrit 33.1 % (39.0-52.0); Hemoglobin 10.3 g/dL (13.0-18.0); Mean Corp Hgb Conc. 31.1 g/dL (33.0-37.0); Mean Corpuscular Hgb 25.2 pg (27.0-31.0); Mean Corpuscular Volume 80.9 fL (80.0-94.0); Mean Platelet Volume 10.7 fL (7.4-10.4); Platelet Count 179 10^3/uL (130-400); Red Blood Cell Count 4.09 10^6/uL (4.70-6.10); Red Cell Dist. Width 18.1 % (11.5-14.5); White Blood Cell Count 12.8 10^3/uL (4.8-10.8)
[2024-06-19 10:10] LABS: APTT 29.3 Sec (23.4-35.0)
[2024-06-19] MEDS: HEPARIN 25000 UNITS/250 ML IV (10:29)
--- NOTE | 2024-06-19 10:33 | W.PN.HOSP.TC ---
Today's Communication/Plan
-
stop eliquis
start hep gtt
monitor on tele
lhc for friday
contineu toprol
keep K>4, Mg>2
Assessment / Plan
Assessment / Plan
NAD, resting comfortably in bed
Scleral anicteric
Moist mucous membranes
No JVD
Bibasilar crackles
Normal S1-S2 no murmurs
Soft nontender nondistended bowel sounds active
Peripheral pitting edema +1
Moves extremities spontaneously
AA
Acute on chronic HFpEF
-continue iv lasix
-keep k >4
-keep mg >2
-repeat tte
daily weight
-monitor uop
-follow renal function
-monitor on tele
nsvt
on propanolol, not sure if this is the best agent for him, would consider a nonselective bb
per cards plan for [facility] on friday
device interogatted showed 20sec run of nsvt
keep k >4
mg >2
pafib
conitnue tele
ocntinue toprolol
hold elquis, allow for 48hour washout for lhc on friday
-start hep gtt to provide stroke prevention bridging
hld
continue statin
gerd continue ppi
Anticipated Discharge: > 48 hours
Subjective/Interval History
-
Date of Service: June 19, 2024
seen an dexamined
no new complaints
no acute overnight events
Objective Data
-
Labs:
Laboratory Results
06/19/24 06/19/24
08:34 09:44
WBC 12.8 H
Hgb 10.3 L
Hct 33.1 L
Plt Count 179
APTT 29.3
Sodium 141
Potassium 4.7 D
Chloride 102
Carbon Dioxide 27
BUN 41 H
Creatinine 1.3
Glucose 212 H
Calcium 8.8
Vital Signs:
Vital Signs
Temp Pulse Resp BP Pulse Ox
98.9 F 87 19 136/61 93
06/19/24 07:37 06/19/24 07:37 06/19/24 07:37 06/19/24 07:37 06/19/24 07:37
[2024-06-19 11:16] LABS: Glycohemoglobin (HgbA1c) 8.4 % (4.0-5.6)
[2024-06-19 11:21] LABS: Glucose - Point of Care 175 mg/dl (70-99)
[2024-06-19 11:24] VITALS: BP 111/77
[2024-06-19] MEDS: NOVOLOG FLEXPEN-LOW RESISTANCE 1 UNITS SC (11:39)
[2024-06-19 15:30] VITALS: BP 126/59
[2024-06-19 16:44] LABS: Glucose - Point of Care 223 mg/dl (70-99)
[2024-06-19 16:48] LABS: APTT 45.4 Sec (23.4-35.0)
[2024-06-19] MEDS: DEMADEX 30 MG PO (16:57)
[2024-06-19] MEDS: PROTONIX 40 MG PO (16:57)
[2024-06-19] MEDS: MAG-TAB SR 84 MG PO (16:57)
[2024-06-19] MEDS: ZITHROMAX 250 MG PO (16:57)
[2024-06-19] MEDS: NOVOLOG FLEXPEN-LOW RESISTANCE 2 UNITS SC (16:58)
[2024-06-19 19:10] VITALS: BP 134/61
[2024-06-19 21:07] LABS: Glucose - Point of Care 239 mg/dl (70-99)
[2024-06-19] MEDS: ZOLOFT 50 MG PO (21:24)
[2024-06-19] MEDS: LIPITOR 40 MG PO (21:25)
[2024-06-19] MEDS: CARDURA 3 MG PO (21:25)
[2024-06-19] MEDS: ARICEPT 10 MG PO (21:26)
[2024-06-19 23:00] VITALS: BP 127/54
[2024-06-20 00:26] LABS: APTT 40.8 Sec (23.4-35.0)
[2024-06-20 03:05] VITALS: BP 123/90
[2024-06-20 06:00] VITALS: BMI 27.7
[2024-06-20] MEDS: SYNTHROID 175 MCG PO (06:24)
[2024-06-20 07:00] VITALS: BP 117/61
[2024-06-20 07:12] LABS: Glucose - Point of Care 129 mg/dl (70-99)
[2024-06-20] MEDS: NOVOLOG FLEXPEN-LOW RESISTANCE SC (07:15)
[2024-06-20] MEDS: DUONEB 3 ML INH ×3 (07:19→20:01)
[2024-06-20] MEDS: PULMICORT 0.5 MG INH ×2 (07:19→20:30)
[2024-06-20] MEDS: ZENPEP DELAYED RELEASE CAPSULE 2 CAPSULE PO ×3 (07:47→15:54)
[2024-06-20] MEDS: DEMADEX 30 MG PO ×2 (07:48→15:54)
[2024-06-20] MEDS: MUCINEX 600 MG PO ×2 (07:49→20:54)
[2024-06-20] MEDS: NORVASC 10 MG PO (07:49)
[2024-06-20] MEDS: JARDIANCE 10 MG PO (07:50)
[2024-06-20] MEDS: DELTASONE 10 MG PO (07:50)
[2024-06-20] MEDS: TOPROL XL 25 MG PO (07:50)
[2024-06-20 08:34] LABS: APTT 77.7 Sec (23.4-35.0)
[2024-06-20 08:52] LABS: Blood Urea Nitrogen 37 mg/dl (9-20); Calcium 8.6 mg/dl (8.4-10.2); Carbon Dioxide 29 mmol/L (22-30); Chloride 102 mmol/L (98-107); Estimated Creatinine Clearance 47 ml/min; Glucose 108 mg/dl (70-99); Potassium 4.3 mmol/L (3.5-5.1); Sodium 140 mmol/L (135-145); eGFR 59.63
[2024-06-20] MEDS: HEPARIN 25000 UNITS/250 ML IV ×2 (09:09→20:55)
--- NOTE | 2024-06-20 09:50 | W.PN.CARDCBS ---
Today's Communication / Plan
-
Add aspirin daily
For cardiac catheterization on 06/21
Discussed with EP regarding VT if catheterization is unremarkable
Toprol added in place of propranolol
Impression / Plan
-
PCP: Dr. Meng
Insurance Agency Owner: Dr. Deana Palomino
Impression:
Presented with SOB, weight gain
Acute on chronic HFpEF
15-20 second run on NSVT @ 12:03AM 06/16 by device check
Elevated troponin
Paroxysmal atrial fibrillation
Chronic Eliquis anticoagulation
CAD
s/p BLADIMIR to mid LAD 01/13/2020
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
COPD
Carotid stenosis
Hypertension
Hyperlipidemia
Hypothyroidism
Type 2 DM
Frequent PVCs
Echo 10/31/2023: EF 60-65%, mild cLVH, dense MAC, well seated TAVR with peak/mean gradients 19/12 mmHg, trace TR, estimated PAP 33 mmHg
Echo 06/18/2024: EF 50-55%, stage II diastolic dysfunction, mild-moderate MS, moderate MR, s/p TAVR with peak/mean gradients 25/17 mmHg, trace AR, trace TR, estimated PAP 30 mmHg.
Plan:
Weight is stable on torsemide which was increased slightly to 30 mg p.o. twice daily from outpatient dosing of
Plan is for cardiac catheterization on 06/21 to exclude CAD as the cause of nonsustained V. tach with indeterminate troponin and history of CAD
Propranolol has been changed to Toprol
Will need to discuss with EP whether upgrade to AICD would be needed if no CAD noted at time of catheterization on patient has remained asymptomatic and ejection fraction is normal
Continue IV heparin while Eliquis is on hold
Start aspirin 325 mg today then baby aspirin daily
Renal insufficiency has resolved
HPI: Geoffrey is an 84 year old male with PMH of chronic HFpEF, paroxysmal atrial fibrillation, CAD s/p LAD PCI, TAVR, PPM, COPD, carotid stenosis, hypertension, hyperlipidemia, hypothyroidism, DM, and frequent PVCs who presented to [facility] for evaluation
of SOB and LE edema. He had noted recently an increase in his SOB with associated weight gain and increased LE edema. He called the cardiology office and was placed on higher dose diuretic for a few days, however did not note any improvement. He
then called 06/17 stating he was feeling generally unwell and he sent a remote transmission to the device clinic. He was found to have a 15-20 second run of NSVT around 3AM. Given NSVT with concern for acute heart failure, he was sent to [facility] for
further evaluation. In ER, he was found to be in acute heart failure by CXR with proBNP 2500. He was started on IV lasix and reports he has been responding well to this overnight. His weight has come down and his breathing and edema are improving.
Progress Note - Insurance Agency Owner
Subjective
Date of Service: June 20, 2024
No complaints
Objective
Labs:
06/19/24 09:44
06/20/24 06:33
Labs
Hgb 10.3 g/dL (13.0-18.0) L 06/19/24 09:44
Hct 33.1 % (39.0-52.0) L 06/19/24 09:44
Plt Count 179 10^3/uL (130-400) 06/19/24 09:44
APTT 77.7 Sec (23.4-35.0) H 06/20/24 06:33
Sodium 140 mmol/L (135-145) 06/20/24 06:33
Potassium 4.3 mmol/L (3.5-5.1) 06/20/24 06:33
BUN 37 mg/dl (9-20) H 06/20/24 06:33
Creatinine 1.2 mg/dL (0.7-1.3) 06/20/24 06:33
Glucose 108 mg/dl (70-99) H 06/20/24 06:33
Troponins
06/17/24 06/18/24 06/18/24
17:07 01:19 07:21
Troponin I 0.086 H* 0.860 H* 0.098 H* D
Vital Signs and I&O:
Vital Signs
Temp Pulse Resp BP Pulse Ox
98.3 F 70 17 117/61 95
06/20/24 07:00 06/20/24 07:49 06/20/24 07:21 06/20/24 07:49 06/20/24 07:21
Vital Signs
Temp Pulse Resp BP Pulse Ox
98.3 F 70 17 117/61 95
06/20/24 07:00 06/20/24 07:49 06/20/24 07:21 06/20/24 07:49 06/20/24 07:21
Intake & Output
06/18/24 06/19/24 06/20/24 06/21/24
06:59 06:59 06:59 06:59
Intake Total 960 / 960
Balance 960 / 960
Physical Exam
Physical Exam
General: Well developed, well nourished in NAD.
Neck: Supple, no JVD, HJR, carotids +2 B/L, no bruits bilaterally.
Heart: Non displaced PMI, RRR, no murmurs, No S3, S4, no rubs.
Lungs: Clear to auscultation bilaterally, no wheeze, rhonchi, rubs bilaterally,
normal expiratory phase.
Extremities: No clubbing, cyanosis or edema bilaterally.
Neuro: Grossly nonfocal, awake, alert and oriented x3.
[2024-06-20 11:11] VITALS: BP 112/84
[2024-06-20 11:30] LABS: Glucose - Point of Care 151 mg/dl (70-99)
[2024-06-20] MEDS: NOVOLOG FLEXPEN-LOW RESISTANCE 1 UNITS SC ×2 (11:30→17:26)
[2024-06-20] MEDS: ASPIRIN ENTERIC COATED 325 MG PO (11:30)
--- NOTE | 2024-06-20 13:33 | W.PN.HOSP.TC ---
Today's Communication/Plan
-
npo after midnight
hep gtt
lhc
iv diuresis
Assessment / Plan
Assessment / Plan
NAD, resting comfortably in bed
Scleral anicteric
Moist mucous membranes
No JVD
Bibasilar crackles
Normal S1-S2 no murmurs
Soft nontender nondistended bowel sounds active
Peripheral pitting edema +1
Moves extremities spontaneously
AA
Acute on chronic HFpEF
-continue iv lasix
-keep k >4
-keep mg >2
-repeat tte
daily weight
-monitor uop
-follow renal function
-monitor on tele
nsvt
on propanolol, not sure if this is the best agent for him, would consider a nonselective bb
per cards plan for [facility]hc on friday
device interogatted showed 20sec run of nsvt
keep k >4
mg >2
pafib
conitnue tele
ocntinue toprolol
hold elquis, allow for 48hour washout for lhc on friday
-start hep gtt to provide stroke prevention bridging
hld
continue statin
gerd continue ppi
Anticipated Discharge: 24 - 48 hours
Subjective/Interval History
-
Date of Service: June 20, 2024
seen and examined
no new complaints
no acute overnight events
Objective Data
-
Labs:
Laboratory Results
06/20/24 06/20/24
06:33 13:30
APTT 77.7 H Pending
Sodium 140
Potassium 4.3
Chloride 102
Carbon Dioxide 29
BUN 37 H
Creatinine 1.2
Glucose 108 H
Calcium 8.6
Vital Signs:
Vital Signs
Temp Pulse Resp BP Pulse Ox
97.4 F 72 20 112/84 99
06/20/24 11:11 06/20/24 11:11 06/20/24 11:11 06/20/24 11:11 06/20/24 11:11
I&O
06/19/24 06/20/24 06/21/24
06:59 06:59 06:59
Intake Total 960 / 960
Balance 960 / 960
[2024-06-20 14:09] LABS: APTT 73.2 Sec (23.4-35.0)
[2024-06-20 15:00] VITALS: BP 115/56
[2024-06-20 16:57] LABS: Glucose - Point of Care 186 mg/dl (70-99)
[2024-06-20] MEDS: PROTONIX 40 MG PO (17:25)
[2024-06-20] MEDS: ZITHROMAX 250 MG PO (17:25)
[2024-06-20] MEDS: MAG-TAB SR 84 MG PO (17:25)
[2024-06-20 19:28] VITALS: BP 120/48
[2024-06-20] MEDS: LIPITOR 40 MG PO (20:58)
[2024-06-20] MEDS: CARDURA 3 MG PO (20:58)
[2024-06-20] MEDS: ZOLOFT 50 MG PO (21:01)
[2024-06-20] MEDS: ARICEPT 10 MG PO (21:04)
[2024-06-20 21:35] LABS: Glucose - Point of Care 171 mg/dl (70-99)
[2024-06-21] VITALS (17 sets, daily range): BP systolic 92–140; BP diastolic 50–105; BMI 27.6
[2024-06-21] MEDS: SYNTHROID 175 MCG PO (06:03)
[2024-06-21 06:30] LABS: PT 15.1 Sec (11.4-14.6)
[2024-06-21 06:32] LABS: APTT 80.7 Sec (23.4-35.0)
[2024-06-21 06:42] LABS: Hematocrit 30.4 % (39.0-52.0); Hemoglobin 9.6 g/dL (13.0-18.0); Mean Corp Hgb Conc. 31.6 g/dL (33.0-37.0); Mean Corpuscular Hgb 26.1 pg (27.0-31.0); Mean Corpuscular Volume 82.6 fL (80.0-94.0); Platelet Count 169 10^3/uL (130-400); Red Blood Cell Count 3.68 10^6/uL (4.70-6.10); Red Cell Dist. Width 17.7 % (11.5-14.5); White Blood Cell Count 10.8 10^3/uL (4.8-10.8)
[2024-06-21] MEDS: PULMICORT 0.5 MG INH ×2 (07:18→20:19)
[2024-06-21] MEDS: DUONEB 3 ML INH ×3 (07:18→20:19)
[2024-06-21 07:53] LABS: Glucose - Point of Care 122 mg/dl (70-99)
[2024-06-21] MEDS: NOVOLOG FLEXPEN-LOW RESISTANCE SC (08:00)
[2024-06-21] MEDS: MUCINEX 600 MG PO ×2 (08:01→19:32)
[2024-06-21] MEDS: ZENPEP DELAYED RELEASE CAPSULE PO (08:01)
[2024-06-21] MEDS: DELTASONE 10 MG PO (08:01)
[2024-06-21] MEDS: ASPIR LOW (ENTERIC COATED) 81 MG PO (08:01)
[2024-06-21] MEDS: TOPROL XL 25 MG PO (08:01)
[2024-06-21] MEDS: NORVASC 10 MG PO (08:01)
[2024-06-21] MEDS: JARDIANCE 10 MG PO (08:01)
[2024-06-21] MEDS: DEMADEX 30 MG PO ×2 (08:02→16:10)
[2024-06-21 10:47] LABS: ACT-LR - POC 276 Seconds (116-155)
[2024-06-21 10:57] LABS: ACT-LR - POC 300 Seconds (116-155)
[2024-06-21 11:19] LABS: ACT-LR - POC 292 Seconds (116-155)
[2024-06-21 12:46] LABS: Glucose - Point of Care 160 mg/dl (70-99)
[2024-06-21] MEDS: NOVOLOG FLEXPEN-LOW RESISTANCE 1 UNITS SC ×2 (12:54→18:13)
[2024-06-21] MEDS: ZENPEP DELAYED RELEASE CAPSULE 2 CAPSULE PO ×2 (12:57→18:12)
[2024-06-21] MEDS: NSS 655 IV (12:59)
--- NOTE | 2024-06-21 13:56 | W.PN.HOSP.TC ---
Today's Communication/Plan
-
cardiac cath
labs in AM
Assessment / Plan
Assessment / Plan
84yo M with PMHx of CAD s/p PCI, COPD on Prednisone, CHF, HTN, Anxiety, DM admitted with CHF exacerbation and found NSVT on cardiac rehabilitation program director.
A/P:
#Acute on chronic HFpEF exacerbation
#NSVT
#Paroxysmal Afib
# s/p TAVR
Cardiology follows
Diuretic increased
Follow Electrolytes, daily weight, telemetry
Echo with grade 2 diastolic dysfunction
s/p cardiac cath on 06/21/24
#HLD
#GERD
#Hypothyroidism
#Anxiety d/o
cont home meds
#COPD not in exacerbation
cont prednisone and azithromycin ppx
Bronchodilators
#Mild leukocytosis
2/2 chronic prednisonce
#DM type 2 with neuroppathy
insulin SS, DM diet
DVT ppx on Elqiuis
DNR/DNI
I have spent at least 36min reviewing chart, test results and providing direct patient care
Anticipated Discharge: 24 - 48 hours
Subjective/Interval History
-
Date of Service: June 21, 2024
Objective Data
-
Labs:
Laboratory Results
06/21/24 06/21/24
04:37 07:20
WBC 10.8
Hgb 9.6 L
Hct 30.4 L
Plt Count 169
PT 15.1 H
INR 1.20
APTT 80.7 H
Sodium Pending
Potassium Pending
Chloride Pending
Carbon Dioxide Pending
BUN Pending
Creatinine Pending
Glucose Pending
Calcium Pending
Vital Signs:
Vital Signs
Temp Pulse Resp BP Pulse Ox
97.9 F 74 15 131/56 94
06/21/24 11:44 06/21/24 13:53 06/21/24 13:53 06/21/24 08:01 06/21/24 13:53
I&O
06/20/24 06/21/24 06/22/24
06:59 06:59 06:59
Intake Total 960 / 960 1640 / 1640
Output Total 1200 / 1200 300 / 300
Balance 960 / 960 440 / 440 -300 / -300
Review of Systems
-
History Source: Patient
All other systems: Reviewed and negative
Physical Exam
-
General: Well Developed and Well Nourished
HEENT: Nose Appears Normal
Cardiac: Regular Rhythm and S1/S2
GI: Soft, Nontender and Nondistended
Musculoskeletal: No Clubbing, No Cyanosis, Edema, Right Lower Extrem and Edema, Left Lower Extrem
Skin: Warm
Neuro: Awake, Alert, Oriented and AO x 3
Psych: Calm
--- NOTE | 2024-06-21 14:18 | ITS.CL.CATH ---
Midwife Practitioner - Catheterization
Cardiac Catheterization
Procedure Report:
LEFT HEART CATH AND CORONARY INTERVENTION
Date of Procedure: June 21, 2024
Referring: Dr. Armen Goodwin
PROCEDURES:
1. Left heart catheterization with coronary and single plane left ventriculography
INDICATION: Sustained self-terminating ventricular tachycardia
ACCESS: Right common femoral artery, 6 [place] sheath
HEMODYNAMICS (mmHg):
AO (s/d, m) : 141/56
CORONARY FINDINGS
Dominance: Right
LEFT MAIN: Large with minor distal tapering
LEFT ANTERIOR DESCENDING: The LAD arises normally from the left main and runs in the anterior interventricular groove. The proximal LAD has a tubular 40% narrowing and focal 90% stenosis on the proximal edge of the previously stented segment. The
only sizable diagonal branch is jailed by the stent with KALIN-3 flow into the distal vessel. The mid LAD stent is widely patent with only luminal irregularities noted in the distal LAD beyond the stented segment.
CIRCUMFLEX: The circumflex is a medium caliber nondominant vessel. OM1 arises very proximally from the circumflex and is widely patent. OM 2 is a moderate to large caliber vessel that is widely patent. The circumflex terminates in a small OM 3
RIGHT CORONARY: The right coronary artery is a dominant vessel. The ostium of the right coronary artery is heavily calcified with a 40% ostial stenosis. No pressure dampening occurred with engagement of a 6 [place] catheter. There is a 30%
stenoses are noted in the mid RCA. The distal RCA has minor nonobstructive luminal irregularities. The PDA is small. The posterolateral branch is a medium caliber vessel
VENTRICULOGRAPHY: Not done
ANGIOPLASTY PROCEDURE DETAIL: Upon review of the diagnostic catheterization films the decision was made to proceed with percutaneous revascularization of the high-grade proximal LAD stenosis. Intravenous heparin was administered and the ACT was
monitored throughout the procedure. A 600 mg loading dose of clopidogrel was administered. The origin of the left main was cannulated with a 6 [place] EBU 3.5 guiding catheter and a BMW guidewire was advanced across the proximal LAD stenosis and
into the distal vessel with limited difficulty. Balloon predilation was performed with a 2.0 x 12 mm Euphora balloon and was followed by placement of a 3.0 x 15 mm Umesh stent that was positioned from the ostium of the LAD to the mid LAD with 3 mm
of stent overlap with the existing stent. The Lincoln stent was implanted at nominal pressures and postdilated to high-pressure with a 3.5 mm noncompliant balloon between 16 and 18 barrie with a nice angiographic result.
RADIATION SUMMARY: Fluoro Time (min): 9.9, Dose (mGy): 944, DAP (Gy.cm2) : 55.4
CONCLUSIONS
1. Successful stenting of the ostial to proximal LAD
RECOMMENDATIONS
1. Aspirin, Plavix, and Eliquis triple therapy for 1 week followed by Plavix and Eliquis for 12 months
Copy to: Dr. Deana Palomino
--- NOTE | 2024-06-21 14:47 | PTCARENOTE ---
Pt assisted OOB, brandon well, sitting in chair. R femoral dsg remains D+I. No c/o pain.
[2024-06-21 17:35] LABS: Glucose - Point of Care 189 mg/dl (70-99)
[2024-06-21] MEDS: PROTONIX 40 MG PO (18:12)
[2024-06-21] MEDS: MAG-TAB SR 84 MG PO (18:13)
[2024-06-21] MEDS: ZITHROMAX 250 MG PO (18:13)
[2024-06-21 19:03] LABS: Blood Urea Nitrogen 31 mg/dl (9-20); Calcium 8.7 mg/dl (8.4-10.2); Carbon Dioxide 29 mmol/L (22-30); Chloride 99 mmol/L (98-107); Estimated Creatinine Clearance 41 ml/min; Glucose 191 mg/dl (70-99); Potassium 4.7 mmol/L (3.5-5.1); Sodium 137 mmol/L (135-145); eGFR 49.56
[2024-06-21] MEDS: ELIQUIS 2.5 MG PO (19:32)
[2024-06-21] MEDS: TYLENOL 1000 MG PO (19:32)
[2024-06-21 22:16] LABS: Glucose - Point of Care 147 mg/dl (70-99)
[2024-06-21] MEDS: CARDURA 3 MG PO (22:54)
[2024-06-21] MEDS: ARICEPT 10 MG PO (22:54)
[2024-06-21] MEDS: LIPITOR 40 MG PO (22:54)
[2024-06-21] MEDS: ZOLOFT 50 MG PO (22:54)
--- NOTE | 2024-06-22 01:44 | PTCARENOTE ---
Patient ambulating self in room w/out difficulty. Tele remains AV paced w/ occasional PVCs. Right groin site C/D/I w/ positive pedal pulse. Denies any chest pain. Aware of POC. Call mcclure within reach.
[2024-06-22 02:57] VITALS: BMI 27.6
[2024-06-22 03:00] VITALS: BP 120/76
[2024-06-22 03:42] LABS: % Basophils 0.3 % (0-2); % Eosinophils 1.4 % (0-6); % Immature Granulocytes 1.2 % (0-0.5); % Lymphocytes 14.4 % (20.5-51.1); % Neutrophils 71.7 % (42.2-75.2); Absolute Eosinophils 0.1 10^3/uL (0-0.7); Absolute Immature Granulocytes 0.1 10^3/uL (0-0.05); Absolute Lymphocytes 1.4 10^3/uL (1.2-3.4); Absolute Monocytes 1.1 10^3/uL (0.1-0.6); Absolute Neutrophils 7.2 10^3/uL (1.4-6.5); Hemoglobin 9.8 g/dL (13.0-18.0); Mean Corp Hgb Conc. 31.6 g/dL (33.0-37.0); Mean Corpuscular Hgb 25.8 pg (27.0-31.0); Mean Corpuscular Volume 81.6 fL (80.0-94.0); Mean Platelet Volume 10.5 fL (7.4-10.4); Nucleated Red Blood Cells % 0 % (-); Platelet Count 177 10^3/uL (130-400); Red Cell Dist. Width 17.7 % (11.5-14.5)
[2024-06-22 04:03] LABS: ALT (SGPT) 27 U/L (0-50); AST (SGOT) 24 U/L (17-59); Albumin 3.4 g/dl (3.5-5.0); Alkaline Phosphatase 84 U/L (38-126); Blood Urea Nitrogen 30 mg/dl (9-20); Calcium 8.9 mg/dl (8.4-10.2); Carbon Dioxide 28 mmol/L (22-30); Chloride 103 mmol/L (98-107); Estimated Creatinine Clearance 44 ml/min; Glucose 113 mg/dl (70-99); HDL Cholesterol 53 mg/dl; LDL Cholesterol, Calculated 25 mg/dl; Magnesium 1.8 mg/dl (1.6-2.3); Potassium 4.2 mmol/L (3.5-5.1); Sodium 138 mmol/L (135-145); Total Bilirubin 0.4 mg/dl (0.2-1.3); Total Cholesterol 98 mg/dl (50-199); Total Protein 5.7 g/dl (6.3-8.2); Triglyceride 103 mg/dl (10-149); Very Low Density Lipoprotein 20 mg/dl (0-30); eGFR 54.17
[2024-06-22] MEDS: SYNTHROID 175 MCG PO (06:11)
[2024-06-22 07:05] VITALS: BP 126/64
[2024-06-22 07:09] LABS: Glucose - Point of Care 119 mg/dl (70-99)
[2024-06-22] MEDS: NOVOLOG FLEXPEN-LOW RESISTANCE SC (07:47)
[2024-06-22] MEDS: DUONEB 3 ML INH ×2 (08:05→13:17)
[2024-06-22] MEDS: PULMICORT 0.5 MG INH (08:05)
[2024-06-22] MEDS: TOPROL XL 25 MG PO (08:21)
[2024-06-22] MEDS: ZENPEP DELAYED RELEASE CAPSULE 2 CAPSULE PO ×2 (08:21→12:13)
[2024-06-22] MEDS: MUCINEX 600 MG PO (08:21)
[2024-06-22] MEDS: ASPIR LOW (ENTERIC COATED) 81 MG PO (08:21)
[2024-06-22] MEDS: NORVASC 10 MG PO (08:22)
[2024-06-22] MEDS: PLAVIX 75 MG PO (08:22)
[2024-06-22] MEDS: JARDIANCE 10 MG PO (08:23)
[2024-06-22] MEDS: ELIQUIS 2.5 MG PO (08:24)
[2024-06-22] MEDS: DEMADEX 30 MG PO (08:24)
[2024-06-22] MEDS: DELTASONE 10 MG PO (08:25)
--- NOTE | 2024-06-22 08:44 | W.PN.CARDCBS ---
Addendum entered and electronically signed by Latasha Hendricks PA-C 06/22/24 13:26:
patient's daughter had additional questions regarding rhythm star monitor, discussed via telephone for 4:53, questions answered to best of my ability. 7 day rhythm star monitor has been applied to patient.
Addendum entered and electronically signed by Armen Goodwin MD 06/22/24 10:37:
I saw and examined the patient.
The INVENTORY ASSOCIATE AND DRIVER or PA's note was reviewed and I agree with the note.
Comment: General: Well developed, well nourished in NAD.
Neck: Supple, no JVD, HJR, carotids +2 B/L, no bruits bilaterally.
Heart: Non displaced PMI, RRR, no murmurs, No S3, S4, no rubs.
Lungs: Clear to auscultation bilaterally, no wheeze, rhonchi, rubs bilaterally,
normal expiratory phase.
Extremities: No clubbing, cyanosis or edema bilaterally.
Neuro: Grossly nonfocal, awake, alert and oriented x3.
No further V. tach. Stable cardiology status for discharge. Discussed with patient and called daughter who is a nurse practitioner. She requested a monitor to be placed prior to discharge and patient does not allow ventricular tachycardia alerts.
He has had no VT since changing propranolol to Toprol.
Original Note:
Today's Communication / Plan
-
Status post LAD PCI
No further NSVT overnight on telemetry
Continue aspirin, Plavix, Eliquis for 1 week then stop aspirin and continue Plavix and Eliquis
Continue Toprol, Norvasc, Cardura, Jardiance
Torsemide 30 mg twice daily for discharge
BMP/magnesium in 1 week
Cardiac rehab
Outpatient cardiac follow-up arranged
Impression / Plan
-
PCP: Dr. Meng
Accounts Receivable Bookkeeper: Dr. Deana Palomino
Impression:
Presented with SOB, weight gain
Acute on chronic HFpEF
15-20 second run on NSVT @ 12:03AM 06/16 by device check
NSTEMI, peak trop 0.86, s/p LAD PCI 06/21/24
Paroxysmal atrial fibrillation
Chronic Eliquis anticoagulation
CAD
s/p BLADIMIR to mid LAD 01/13/2020
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
COPD
Carotid stenosis
Hypertension
Hyperlipidemia
Hypothyroidism
Type 2 DM
Frequent PVCs
Echo 10/31/2023: EF 60-65%, mild cLVH, dense MAC, well seated TAVR with peak/mean gradients 19/12 mmHg, trace TR, estimated PAP 33 mmHg
Echo 06/18/2024: EF 50-55%, stage II diastolic dysfunction, mild-moderate MS, moderate MR, s/p TAVR with peak/mean gradients 25/17 mmHg, trace AR, trace TR, estimated PAP 30 mmHg.
Plan:
-He presented with shortness of breath and weight gain and was diuresed for acute on chronic heart failure. He has been transition to p.o. torsemide 30 mg twice daily for discharge. Creatinine stable at 1.3
-Check BMP/magnesium in 1 week
-He was noted to have NSVT on 06/16 by device check, and troponin peaked at 0.86, therefore underwent cardiac catheterization 06/21 resulting in LAD PCI
-Continue aspirin, Plavix, Eliquis 2.5 mg twice daily for 1 week, then stop aspirin and continue Plavix and Eliquis. Hemoglobin stable at 9.8
-Propranolol was changed to Toprol this admission
-Echocardiogram this admit with preserved EF, well-functioning TAVR, and mild to moderate MS/MR. Discussed results with patient 06/22
-In a paced/AV paced rhythms on review of telemetry overnight with some PVCs, occasional couplets. No NSVT noted
-If were to continue with NSVT post revascularization, would consider need for antiarrhythmic drug therapy +/- upgrade to AICD
-Continue outpatient regimen of Zi Boateng Jardiance
-Cardiac rehab
-Outpatient cardiac follow-up arranged
-Okay for discharge to home today
-Discussed with nursing, hospitalist
HPI: Geoffrey is an 84 year old male with PMH of chronic HFpEF, paroxysmal atrial fibrillation, CAD s/p LAD PCI, TAVR, PPM, COPD, carotid stenosis, hypertension, hyperlipidemia, hypothyroidism, DM, and frequent PVCs who presented to [facility] for evaluation
of SOB and LE edema. He had noted recently an increase in his SOB with associated weight gain and increased LE edema. He called the cardiology office and was placed on higher dose diuretic for a few days, however did not note any improvement. He
then called 06/17 stating he was feeling generally unwell and he sent a remote transmission to the device clinic. He was found to have a 15-20 second run of NSVT around 3AM. Given NSVT with concern for acute heart failure, he was sent to [facility] for
further evaluation. In ER, he was found to be in acute heart failure by CXR with proBNP 2500. He was started on IV lasix and reports he has been responding well to this overnight. His weight has come down and his breathing and edema are improving.
Progress Note - Accounts Receivable Bookkeeper
Subjective
Date of Service: June 22, 2024
Feeling well this morning. No complaints
Objective
Labs:
06/22/24 03:08
06/22/24 03:08
Labs
Hgb 9.8 g/dL (13.0-18.0) L 06/22/24 03:08
Hct 31.0 % (39.0-52.0) L 06/22/24 03:08
Plt Count 177 10^3/uL (130-400) 06/22/24 03:08
PT 15.1 Sec (11.4-14.6) H 06/21/24 04:37
INR 1.20 06/21/24 04:37
APTT 80.7 Sec (23.4-35.0) H 06/21/24 04:37
Sodium 138 mmol/L (135-145) 06/22/24 03:08
Potassium 4.2 mmol/L (3.5-5.1) 06/22/24 03:08
BUN 30 mg/dl (9-20) H 06/22/24 03:08
Creatinine 1.3 mg/dL (0.7-1.3) 06/22/24 03:08
Glucose 113 mg/dl (70-99) H 06/22/24 03:08
Vital Signs and I&O:
Vital Signs
Temp Pulse Resp BP Pulse Ox
97.6 F 88 18 126/64 94
06/22/24 07:03 06/22/24 08:06 06/22/24 08:06 06/22/24 07:05 06/22/24 07:03
Vital Signs
Temp Pulse Resp BP Pulse Ox
97.6 F 88 18 126/64 94
06/22/24 07:03 06/22/24 08:06 06/22/24 08:06 06/22/24 07:05 06/22/24 07:03
Intake & Output
06/20/24 06/21/24 06/22/24 06/23/24
07:59 07:59 07:59 07:59
Intake Total 960 / 960 1640 / 1640 655 / 655
Output Total 1200 / 1200 500 / 500
Balance 960 / 960 440 / 440 155 / 155
Physical Exam
Physical Exam
GEN: No distress, awake, alert, oriented x3
HEENT: supple, anicteric, mmm, EOMI
LUNGS: CTA bilaterally, no wheezes/rales
CV: Reg, S1/S2, 1/6 syst LSB
ABD: soft, BS+, NT/ND
EXT: No cyanosis, clubbing, edema
NEURO: Gross non-focal
SKIN: Warm, pink, dry. No rash. Scattered ecchymoses of bilateral upper extremity
--- NOTE | 2024-06-22 09:03 | W.DCSUMMARY ---
Addendum entered and electronically signed by Marco De La Vega MD 06/22/24 15:46:
Propranolol to be stopped upon d/c
Addendum entered and electronically signed by Marco De La Vega MD 06/22/24 15:20:
Cardiology placed director cardiac
Patient also was managed for FAHEEM on admission since Cr baseline 1.3-1.4
Original Note:
Discharge Summary
Discharge Data
Date of Admission: 06/17/24
Date of Discharge: 06/22/24
-
Pending Results: No
Hospital Course
84yo M with PMHx of CAD s/p PCI, BPH, chronic pancreatic insufficiency, COPD on Prednisone, CHF, HTN, Anxiety, DM admitted with CHF exacerbation and found NSVT on director cardiac.Cardiac cath on 06/21/24 with stent placed to LAD
Mildly elevated TSH recommended to be followed with PCP with repeated test as increase in Synthroid can also precipitate arrhythmia
Low sodium diet with liquis restriction to 48oz per day
close follow up by cardio
Follow with PCP for anemia, watch for black stool or blood in the stool - can be signs of ongoing bleeding
Cont Aspirin, Plavix and Eliquis for 1 week, then stop Aspirin
Patient is medically stable for d/c and cardiology aggreeable with d/c. I edna spent at least 36min preparing D/C
Patient was manaed for
#Acute on chronic HFpEF exacerbation
#NSVT
#Paroxysmal Afib
# s/p TAVR
#CAD
#HLD
#GERD
#Hypothyroidism
#Anxiety d/o
#COPD not in exacerbation
#Mild leukocytosis
#DM type 2 with neuropathy
#Pancreatic insufficiency, chronic
#BPH
Discharge Plan
-
Patient Disposition: Home (Routine Discharge)
Discharge Diagnosis/Procedures: Angioplasty and stent to Left Anterior Descending artery
Diet: 2 Gram Sodium and Restrict fluids to 48 oz
Activity: As tolerated and Other activity
Additional Activity: no heavy lifting greater than 10 pounds for 1 week!
Driving Restrictions: No driving for 24 hours
Blood Work: BMP/magnesium in 1 week
Other Services: Cardiac Rehab
Specialty Instructions: Weigh Daily- Call MD for wt gain/loss 3 lbs overnight/5 lbs in 1 week
Instructions: *[facility] Heart Failure Instructions
Stand Alone Forms: DC Instructions- Cath/EP Lab
Referrals:
Brenda Mcgarry CRNP [Specified Professional Personl] - 07/01/24 9:20 am
Dexter Meng MD [Family Provider] -
(repeat TSH in 2-3 weeks
Anemia workup advised
follow electrolytes)
Additional Discharge Medication Instructions: You will be on aspirin 81mg daily, plavix 75mg daily and eliquis 2.5mg twice a day for 7 days post cath- then STOP aspirin, and remain on plavix/eliquis only.
Prescriptions:
New
aspirin 81 mg Tablet,Delayed Release (Dr/Ec)
81 mg PO DAILY 7 Days Qty: 7 0RF
Rx Instructions:
Stop in 1 week upon d/c
torsemide 20 mg Tablet
30 mg PO BID@0800,1600 60 Days Qty: 90 0RF
doxazosin 1 mg Tablet
3 mg PO HS 30 Days Qty: 90 0RF
clopidogrel 75 mg Tablet
75 mg PO DAILY 30 Days Qty: 30 0RF
metoprolol succinate 25 mg Tablet Extended Release 24 Hr
25 mg PO DAILY 30 Days Qty: 30 0RF
Eliquis 2.5 mg Tablet
2.5 mg PO BID 30 Days Qty: 60 0RF
Continued
levothyroxine 175 MCG tablet
175 mcg PO DAILY
cyanocobalamin (vitamin B-12) 1,000 MCG tablet
1,000 mcg PO QPM
sertraline 50 MG tablet
50 mg PO HS
propranolol 10 MG tablet
10 mg PO QPM
pantoprazole 40 MG tablet,delayed release (DR/EC)
40 mg PO QPM
atorvastatin 40 MG tablet
40 mg PO HS
budesonide 0.5 MG/2 ML suspension for nebulization
0.5 mg inhalation R BID 30 Days Qty: 2 0RF
guaifenesin [Mucus Relief ER] 600 MG tablet extended release 12hr
600 mg PO BID
magnesium oxide 400 MG tablet
400 mg PO QPM
Jardiance 10 MG tablet
10 mg PO DAILY
amlodipine 10 MG tablet
10 mg PO DAILY Qty: 0 0RF
acetaminophen [Tylenol Extra Strength] 500 MG tablet
1,000 mg PO TIDPRN PRN (Reason: mild pain)
prednisone 10 mg Tablet
10 mg PO DAILY
ipratropium-albuterol 0.5 mg-3 mg(2.5 mg base)/3 mL Solution For Nebulization
3 ml INHALATION R TID
azithromycin 250 mg Tablet
250 mg PO QPM
donepezil 10 mg Tablet
10 mg PO HS
glimepiride 1 mg Tablet
1 mg PO DAILY
benzonatate 100 mg Capsule
100 mg PO DAILYPRN PRN (Reason: cough)
simethicone 80 mg Tablet,Chewable
80 mg PO DAILYPRN PRN (Reason: gas/bloating)
Creon 24,000-76,000 -120,000 unit Capsule,Delayed Release(Dr/Ec)
1 cap PO AC
PreserVision AREDS 2,148 mcg-113 mg-45 mg-17.4mg Tablet
1 tab PO BID
calcium-magnesium 500 mg/40 mg tablet
1 tab PO BID
insulin aspart U-100 [Novolog FlexPen U-100 Insulin] 100 unit/mL (3 mL) insulin pen
0 sliding scale dose SC AC
cholecalciferol (vitamin D3) 25 mcg (1,000 unit) Tablet
25 mcg PO QPM
Discontinued
doxazosin 1 MG tablet
3 mg PO HS
torsemide 20 MG tablet
30 mg PO DAILY
metolazone 2.5 mg Tablet
2.5 mg PO WESA
torsemide 20 mg Tablet
20 mg PO QPM
Eliquis 5 MG tablet
2.5 mg PO BID
potassium chloride 20 mEq tablet extended release
20 meq PO DAILY
Discharge Orders:
Discharge Patient (As Directed); Ordered 06/22/24
Ordered By: Marco De La Vega
Discharge Date and Time
Print Language: AMHARIC
--- NOTE | 2024-06-22 09:13 | W.HF.CON ---
Heart Failure
- LV Function
Left ventricular function study result: LV Ejection fraction >40%
Ejection Fraction Percentage: 50-55
- ARNI
Patient already on ARNI: No
Heart Failure ARNI Not Indicated: LV Ejection Fraction >/= 40%
- ACEI/ARB
Patient already on ACEI/ARB: No
Heart Failure ACEI/ARB Not Indicated: LV Ejection Fraction > 40%
- Beta Juan
Patient already on Evidence Based Beta Juan: Yes
- Mineralocorticord Receptor Antagonist
Patient already on MRA: No
Heart Failure MRA Not Indicated: LV Ejection Fraction > 40%
- SGLT-2 Inhibitor
Patient already on SGLT-2 Inhibitor: Yes
- Afib Anticoagulation
Patient already on Anticoagulation for Afib: Yes
- NYHA CHF Classification
NYHA CHF Classification Level: Class III - Symptoms w/ min exertion, interferes w/ nml daily activity
- ACC/AHA Stage
ACC/AHA Stage: Stage C: Symptomatic Heart Failure
--- NOTE | 2024-06-22 09:54 | PN.CDI ---
CDI
- -
CDI:
Physician Documentation Request
Admit Date: 06/17/24 19:58
Dear Doctor Yolette,
Please review the following and provide your response in the progress notes.
Clinical Indicators:
- 06/18 H&P 'acute on Chronic kidney disease'
Laboratory Tests
06/17/24 06/18/24 06/19/24
17:07 07:21 08:34
Creatinine 2.2 H 1.6 H 1.3
eGFR 28.81 42.22 54.17
06/20/24 06/21/24 06/22/24
06:33 18:44 03:08
Creatinine 1.2 1.4 H 1.3
eGFR 59.63 49.56 54.17
Please clarify which of the following accurately represents the patient's renal status:
FAHEEM on CKD 3a
FAHEEM
Other
Criteria for FAHEEM*
1 Increase in serum creatinine by > or = to 0.3 mg/dL (> or = to 26.5 micromol/L) within 48 hours, OR
2 Increase in serum creatinine to > or = to 1.5 times baseline, which is known or presumed to have occurred within 7 days, OR
3 Urine volume < 0.5 nL/kg/hour for six hours
Stages of Chronic Kidney Disease*
Level Description GFR
G1 Normal or High >90
G2 Mildly decreased 60-89
G3a Mildly to moderately decreased 45-59
G3b Moderately to severely decreased 30-44
G4 Severely decreased 15-29
G5 Kidney failure <15
Use of terms such as suspected, likely, concern for, or probable (associated with a specific diagnosis that is being evaluated, monitored, or treated as if it exists) are acceptable and can be coded in the inpatient setting, when documented at the
time of discharge.
Thank you,
Jaleel Renteria RN
CDI Specialist
Please use your independent medical judgment in providing your response.
*Source: Kidney Disease: Improving Global Outcomes (KDIGO) 2012
--- NOTE | 2024-06-22 10:46 | W.PN.HOSP.TC ---
Today's Communication/Plan
-
pending single corner cutter placement by Cardio
Assessment / Plan
Assessment / Plan
84yo M with PMHx of CAD s/p PCI, COPD on Prednisone, CHF, HTN, Anxiety, DM admitted with CHF exacerbation and found NSVT on single corner cutter. S/P stent to LAD and pending single corner cutter prior to d/c
A/P:
#Acute on chronic HFpEF exacerbation
#NSVT
#Paroxysmal Afib
# s/p TAVR
Cardiology follows
Diuretic increased
Follow Electrolytes, daily weight, telemetry
Echo with grade 2 diastolic dysfunction
s/p cardiac cath on 06/21/24 - LAD stent placed
excelsior machine feeder pending
#HLD
#GERD
#Hypothyroidism
#Anxiety d/o
cont home meds
#COPD not in exacerbation
cont prednisone and azithromycin ppx
Bronchodilators
#Mild leukocytosis
2/2 chronic prednisone
#DM type 2 with neuropathy
insulin SS, DM diet
DVT ppx on
DNR/DNI
I have spent at least 36min reviewing chart, test results and providing direct patient care
Anticipated Discharge: 24 - 48 hours
Subjective/Interval History
-
Date of Service: June 22, 2024
Objective Data
-
Labs:
Laboratory Results
06/22/24
03:08
WBC 10.0
Hgb 9.8 L
Hct 31.0 L
Plt Count 177
Sodium 138
Potassium 4.2
Chloride 103
Carbon Dioxide 28
BUN 30 H
Creatinine 1.3
Glucose 113 H
Calcium 8.9
Total Bilirubin 0.4
AST 24
ALT 27
Alkaline Phosphatase 84
Vital Signs:
Vital Signs
Temp Pulse Resp BP Pulse Ox
97.6 F 75 18 126/64 94
06/22/24 07:03 06/22/24 09:00 06/22/24 08:06 06/22/24 07:05 06/22/24 07:45
I&O
06/21/24 06/22/24 06/23/24
06:59 06:59 06:59
Intake Total 1640 / 1640 655 / 655
Output Total 1200 / 1200 500 / 500
Balance 440 / 440 155 / 155
[2024-06-22 11:16] VITALS: BP 117/66
[2024-06-22 11:21] LABS: Glucose - Point of Care 154 mg/dl (70-99)
[2024-06-22] MEDS: NOVOLOG FLEXPEN-LOW RESISTANCE 1 UNITS SC (12:14)
--- NOTE | 2024-06-22 13:36 | PTCARENOTE ---
Pt ambulating in room, offers no complaints. Pt's daughter concerned about him going home and having another episode of VT. Dr baird spoke with daughter. Outpt nuclear monitoring technician ordered, placed on Pt by [facility] office staff.
== END 2024-06-22 16:05 | disposition home or self-care (01) | DRG 321 ==
LOC: IVU 19:58
PROVIDERS: Hospitalist; Internal Medicine Cardiovascular Disease; Nurse Practitioner; Physician Assistant; ADMITTING PHYSICIAN Student in an Organized Health Care Education/Training Program; ATTENDING PHYSICIAN Internal Medicine; CONSULT PHYSICIAN Internal Medicine Cardiovascular Disease; EMERGENCY PHYSICIAN Student in an Organized Health Care Education/Training Program; FAMILY PHYSICIAN Internal Medicine
PROC: 027034Z Dilation of Coronary Artery, One Artery with Drug-eluting Intraluminal Device, Percutaneous Approach (ICD-10-PCS; 2024-06-21)
PROC: 4A023N7 Measurement of Cardiac Sampling and Pressure, Left Heart, Percutaneous Approach (ICD-10-PCS; 2024-06-21)
PROC: B2111ZZ Fluoroscopy of Multiple Coronary Arteries using Low Osmolar Contrast (ICD-10-PCS; 2024-06-21)
PROC: B2151ZZ Fluoroscopy of Left Heart using Low Osmolar Contrast (ICD-10-PCS; 2024-06-21)
DX: I13.0 Hypertensive heart and chronic kidney disease with heart failure and stage 1 through stage 4 chronic kidney disease, or unspecified chronic kidney disease (principal); I50.33 Acute on chronic diastolic (congestive) heart failure; I47.20 Ventricular tachycardia, unspecified; N17.9 Acute kidney failure, unspecified; N18.9 Chronic kidney disease, unspecified; E78.00 Pure hypercholesterolemia, unspecified; E11.22 Type 2 diabetes mellitus with diabetic chronic kidney disease; E03.9 Hypothyroidism, unspecified; I25.10 Atherosclerotic heart disease of native coronary artery without angina pectoris; I48.0 Paroxysmal atrial fibrillation; K21.9 Gastro-esophageal reflux disease without esophagitis; F41.9 Anxiety disorder, unspecified; J44.9 Chronic obstructive pulmonary disease, unspecified; E11.40 Type 2 diabetes mellitus with diabetic neuropathy, unspecified; K86.89 Other specified diseases of pancreas; N40.0 Benign prostatic hyperplasia without lower urinary tract symptoms; Z66 Do not resuscitate; Z95.2 Presence of prosthetic heart valve; Z95.0 Presence of cardiac pacemaker; Z87.891 Personal history of nicotine dependence
CPT/HCPCS: 71046; 80048; 80053; 80061; 82962; 83036; 83735; 83880; 84443; 84484; 85025; 85027; 85347; 85610; 85730; 93005; 93306; 93454; 94640; 99285; C1725; C1760; C1769; C1874; C1894; C9600; Q9950; Q9967

== ENCOUNTER 2024-07-30 14:35 | Outpatient (RCR) | payer OTHER, SELFPAY ==
[2024-07-30 14:43] LABS: Glucose - Point of Care 212 mg/dl (70-99)
[2024-07-30 15:39] LABS: Glucose - Point of Care 136 mg/dl (70-99)
== END 2024-07-30 23:59 | disposition home or self-care (01) ==
LOC: CRHB 14:35
PROVIDERS: ATTENDING PHYSICIAN Internal Medicine Cardiovascular Disease
DX: I25.10 Atherosclerotic heart disease of native coronary artery without angina pectoris (principal); Z95.5 Presence of coronary angioplasty implant and graft
CPT/HCPCS: 82962; G0422; G0423

== ENCOUNTER 2024-08-20 11:18 | Outpatient (RCR) | payer OTHER, SELFPAY ==
[2024-08-04 10:54] LABS: Glucose - Point of Care 216 mg/dl (70-99)
[2024-08-04 11:39] LABS: Glucose - Point of Care 124 mg/dl (70-99)
[2024-08-06 10:58] LABS: Glucose - Point of Care 201 mg/dl (70-99)
[2024-08-06 12:06] LABS: Glucose - Point of Care 93 mg/dl (70-99)
[2024-08-09 11:15] LABS: Glucose - Point of Care 249 mg/dl (70-99)
[2024-08-09 12:12] LABS: Glucose - Point of Care 136 mg/dl (70-99)
[2024-08-11 10:58] LABS: Glucose - Point of Care 133 mg/dl (70-99)
[2024-08-11 11:54] LABS: Glucose - Point of Care 76 mg/dl (70-99)
[2024-08-11 12:13] LABS: Glucose - Point of Care 98 mg/dl (70-99)
[2024-08-16 11:16] LABS: Glucose - Point of Care 162 mg/dl (70-99)
[2024-08-16 12:02] LABS: Glucose - Point of Care 121 mg/dl (70-99)
[2024-08-20 10:54] LABS: Glucose - Point of Care 166 mg/dl (70-99)
[2024-08-20 12:07] LABS: Glucose - Point of Care 93 mg/dl (70-99)
== END 2024-08-20 23:59 | disposition home or self-care (01) ==
LOC: CRHB 11:18
PROVIDERS: ATTENDING PHYSICIAN Internal Medicine Cardiovascular Disease; FAMILY PHYSICIAN Internal Medicine
DX: I25.10 Atherosclerotic heart disease of native coronary artery without angina pectoris (principal); Z95.5 Presence of coronary angioplasty implant and graft; I50.32 Chronic diastolic (congestive) heart failure; Z95.3 Presence of xenogenic heart valve
CPT/HCPCS: 82962; G0422; G0423

== ENCOUNTER → 2024-09-07 12:04 | Outpatient (REF) | payer OTHER, SELFPAY | LOC: RAD 12:04 | PROVIDERS: ATTENDING PHYSICIAN Internal Medicine; FAMILY PHYSICIAN Internal Medicine | DX: M54.50 Low back pain, unspecified (principal) | CPT/HCPCS: 72100 ==

== ENCOUNTER 2024-09-27 12:08 | Emergency (ER) | payer OTHER, SELFPAY ==
[2024-09-27 12:13] VITALS: BP 127/57
[2024-09-27 14:00] VITALS: BP 132/68
--- NOTE | 2024-09-27 14:04 | ED.GENMED ---
History of Present Illness
General
Chief Complaint: Fall
Time Seen by Provider: 09/27/24 13:33
History of Present Illness
History of Present Illness:
84-year-old man with history of A-fib on Eliquis, CAD, hypertension, hyperlipidemia presenting to the emergency department with a fall. Patient states that he was getting in his car with his 1 foot inside the car on 1 foot out of the car when he
lost his footing and fell hitting his head. He did not lose consciousness. He was able to ambulate afterwards. He has had 3 falls in the past few weeks. He has never lost consciousness or had lightheadedness dizziness. Today with the recurrent
falls daughter noticed that he was taking extra metoprolol doses. He does have a cardiology appointment tomorrow. He does feel more fluid overloaded but has been missing one of his heart failure medications. He denies any numbness tingling. No
weakness. He does have a known L1 compression fracture which he is in a brace for. He is up-to-date with his tetanus.
Past History
Past History
ED Past Medical History: CAD, CHF, COPD, HTN, Hypercholesterolemia, NIDDM, Valvular disease, Hypothyroidism, Psychiatric (Anxiety, depression) and Other (PNA, Cirrhosis of the liver)
ED Past Surgical History: Cardiac (Pacemaker, TAVR, Stent X 1)
Social History
Tobacco: Former smoker
Alcohol: Former
Personal:
Living: with family
Employment: Retired
Family History
Family History: Other (Noncontributory)
Phy Exam
Physical Exam
Physical Exam:
GENERAL: no acute distress
HEENT: Small abrasion to the top of the head, extraocular muscles intact, no signs of entrapment, dentition intact, no other obvious trauma
NECK: no midline tenderness, normal range of motion,, no other obvious trauma
BACK: no midline tenderness, no other obvious trauma
CHEST: no tenderness, no flail segment, no subcutaneous emphysema, no other obvious trauma
LUNGS: clear to auscultation bilaterally
CARDIOVASCULAR: regular rate and rhythm
ABDOMEN: soft, non-tender, no masses, no other obvious trauma
PELVIS: stable, no obvious injury
EXTREMITIES: moving all extremities, distal pulses intact, no other obvious trauma, bilateral lower extremity edema
NEUROLOGIC: awake, alert x 3, no focal deficits
Course
Orders/Labs/Results
Orders:
Orders
09/27/24 12:[address] [CT Head W/o Iv Contrast] Urgent
Comment: on eliquis
Reason For Exam: head injury
Vital Signs
Initial and Last Documented VS:
Initial Vital Signs
Temp Pulse Resp BP Pulse Ox
97.6 F 79 18 127/57 97
09/27/24 12:13 09/27/24 12:13 09/27/24 12:13 09/27/24 12:13 09/27/24 12:13
Last Documented Vital Signs
Temp Pulse Resp BP Pulse Ox
97.6 F 79 18 127/57 97
09/27/24 12:13 09/27/24 12:13 09/27/24 12:13 09/27/24 12:13 09/27/24 12:13
MDM/Problems Addressed
Differential Diagnosis Includes:
Patient is a 84-year-old man presenting to the emergency department after a fall. Vitals unremarkable exam does show a small abrasion to the top of his head. Bleeding is controlled. Given that he is on Eliquis concern for traumatic intracranial
injury. Will obtain CT scan of the head. He does not have any midline tenderness to suggest compression fractures. He is ambulatory. CT scan obtained prior to evaluation shows no acute abnormality. We did discuss obtaining additional imaging
however given that his exam is nonfocal and he is ambulatory we will hold off on any additional scans. We did discuss physical therapy especially with these recurrent falls. Patient is going to follow-up with his community recreation coordinator appointment tomorrow.
Strict return precautions given.
*Critical Care Note
Total Time (30-74mins, 75-104mins- exclusive of procedures): Not Applicable
ED Attending Note
-
Portions of this chart may have been created with voice recognition software.� Occasional wrong word or��sound alike� substitutions may have occurred due to the inherent limitations of voice recognition software.
Discharge Plan
Departure
Patient Disposition: Home (Routine Discharge)
Date of Disposition: 09/27/24
Time of Disposition: 13:55
Patient with high blood pressure during this ER visit?: No
Discharge Problem:
Fall
Instructions: Preventing falls in adults
Prescriptions:
No Action
levothyroxine 175 MCG tablet
175 mcg PO DAILY
cyanocobalamin (vitamin B-12) 1,000 MCG tablet
1,000 mcg PO QPM
sertraline 50 MG tablet
50 mg PO HS
pantoprazole 40 MG tablet,delayed release (DR/EC)
40 mg PO QPM
atorvastatin 40 MG tablet
40 mg PO HS
budesonide 0.5 MG/2 ML suspension for nebulization
0.5 mg inhalation R BID 30 Days Qty: 2 0RF
guaifenesin [Mucus Relief ER] 600 MG tablet extended release 12hr
600 mg PO BID
magnesium oxide 400 MG tablet
400 mg PO QPM
Jardiance 10 MG tablet
10 mg PO DAILY
amlodipine 10 MG tablet
10 mg PO DAILY Qty: 0 0RF
acetaminophen [Tylenol Extra Strength] 500 MG tablet
1,000 mg PO TIDPRN PRN (Reason: mild pain)
prednisone 10 mg Tablet
10 mg PO DAILY
ipratropium-albuterol 0.5 mg-3 mg(2.5 mg base)/3 mL Solution For Nebulization
3 ml INHALATION R TID
azithromycin 250 mg Tablet
250 mg PO QPM
donepezil 10 mg Tablet
10 mg PO HS
glimepiride 1 mg Tablet
1 mg PO DAILY
benzonatate 100 mg Capsule
100 mg PO DAILYPRN PRN (Reason: cough)
simethicone 80 mg Tablet,Chewable
80 mg PO DAILYPRN PRN (Reason: gas/bloating)
Creon 24,000-76,000 -120,000 unit Capsule,Delayed Release(Dr/Ec)
1 cap PO AC
PreserVision AREDS 2,148 mcg-113 mg-45 mg-17.4mg Tablet
1 tab PO BID
calcium-magnesium 500 mg/40 mg tablet
1 tab PO BID
insulin aspart U-100 [Novolog FlexPen U-100 Insulin] 100 unit/mL (3 mL) insulin pen
0 sliding scale dose SC AC
cholecalciferol (vitamin D3) 25 mcg (1,000 unit) Tablet
25 mcg PO QPM
aspirin 81 mg Tablet,Delayed Release (Dr/Ec)
81 mg PO DAILY 7 Days Qty: 7 0RF
Rx Instructions:
Stop in 1 week upon d/c
torsemide 20 mg Tablet
30 mg PO BID@0800,1600 60 Days Qty: 90 0RF
doxazosin 1 mg Tablet
3 mg PO HS 30 Days Qty: 90 0RF
clopidogrel 75 mg Tablet
75 mg PO DAILY 30 Days Qty: 30 0RF
metoprolol succinate 25 mg Tablet Extended Release 24 Hr
25 mg PO DAILY 30 Days Qty: 30 0RF
Eliquis 2.5 mg Tablet
2.5 mg PO BID 30 Days Qty: 60 0RF
Activity Restrictions/Additional Instructions:
You were seen in the Emergency Department today for fall. While you were here we performed a CT scan, which was reassuring.
We would like for you to follow up with your primary care physician for further evaluation. If you experience fever, worsening of your symptoms, or develop any other new or concerning symptoms, please return to the Emergency Department immediately.
Please see the attached sheet for additional information.
Thank you for choosing us for your care.
Interventions
Interventions:
*Risk Screen - Suicide Last Done: 09/27/24 12:13
*General Assessment Last Done: 09/27/24 13:56
*Neglect/Abuse Screening Last Done: 09/27/24 13:56
*ED COVID-19 Vaccine History Last Done: 09/27/24 13:56
ED-Musculoskeletal Assessment Last Done: 09/27/24 13:56
ED- Neurological Assessment Last Done: 09/27/24 13:56
Discharge Date and Time
Print Language: MONGOLIAN
== END 2024-09-27 14:21 | disposition home or self-care (01) ==
LOC: EMR 12:08
PROVIDERS: EMERGENCY PHYSICIAN Student in an Organized Health Care Education/Training Program; FAMILY PHYSICIAN Internal Medicine
DX: S00.01XA Abrasion of scalp, initial encounter (principal); V48.4XXA Person boarding or alighting a car injured in noncollision transport accident, initial encounter; I25.10 Atherosclerotic heart disease of native coronary artery without angina pectoris; I11.0 Hypertensive heart disease with heart failure; I50.9 Heart failure, unspecified; I48.91 Unspecified atrial fibrillation; E03.9 Hypothyroidism, unspecified; F32.A Depression, unspecified; F41.9 Anxiety disorder, unspecified; K74.60 Unspecified cirrhosis of liver; M48.56XA Collapsed vertebra, not elsewhere classified, lumbar region, initial encounter for fracture; E11.9 Type 2 diabetes mellitus without complications; J44.9 Chronic obstructive pulmonary disease, unspecified; E78.00 Pure hypercholesterolemia, unspecified; I38 Endocarditis, valve unspecified; Z79.01 Long term (current) use of anticoagulants; Z95.0 Presence of cardiac pacemaker; Z95.5 Presence of coronary angioplasty implant and graft; Z87.891 Personal history of nicotine dependence; R29.6 Repeated falls
CPT/HCPCS: 99284; 70450

== ENCOUNTER → 2024-10-19 12:49 | Outpatient (REF) | payer OTHER, SELFPAY | LOC: RAD 12:49 | PROVIDERS: ATTENDING PHYSICIAN Internal Medicine | DX: M25.551 Pain in right hip (principal) | CPT/HCPCS: 73502 ==

== ENCOUNTER → 2025-03-04 12:41 | Outpatient (REF) | payer BC, SELFPAY | LOC: RAD 12:41 | PROVIDERS: ATTENDING PHYSICIAN Internal Medicine | DX: J44.9 Chronic obstructive pulmonary disease, unspecified (principal) | CPT/HCPCS: 71046 ==

== ENCOUNTER 2025-04-05 04:35 | Inpatient (IN) | payer OTHER, SELFPAY ==
[2025-04-05] VITALS (19 sets, daily range): BP systolic 97–144; BP diastolic 53–99; O2SAT 98; BMI 27.8; BMI 27.2
[2025-04-05] MEDS: ANCEF 10 IV (01:19)
[2025-04-05 01:29] LABS: % Basophils 0.2 % (0-2); % Eosinophils 1.8 % (0-6); % Immature Granulocytes 0.8 % (0-0.5); % Lymphocytes 5.7 % (20.5-51.1); % Monocytes 7.1 % (1.7-9.3); % Neutrophils 84.4 % (42.2-75.2); Absolute Eosinophils 0.3 10^3/uL (0-0.7); Absolute Immature Granulocytes 0.1 10^3/uL (0-0.05); Absolute Monocytes 1.2 10^3/uL (0.1-0.6); Absolute Neutrophils 14.5 10^3/uL (1.4-6.5); Hematocrit 28.9 % (39.0-52.0); Hemoglobin 8.6 g/dL (13.0-18.0); Mean Corp Hgb Conc. 29.8 g/dL (33.0-37.0); Mean Corpuscular Hgb 24.6 pg (27.0-31.0); Mean Corpuscular Volume 82.6 fL (80.0-94.0); Mean Platelet Volume 10.3 fL (7.4-10.4); Nucleated Red Blood Cells % 0 % (-); Platelet Count 242 10^3/uL (130-400); Red Cell Dist. Width 19.6 % (11.5-14.5); White Blood Cell Count 17.1 10^3/uL (4.8-10.8)
--- NOTE | 2025-04-05 01:39 | ED.GENMED ---
History of Present Illness
General
Chief Complaint: Breathing Problem
Source: patient, records and family
Exam Limitations: none
Time Seen by Provider: 04/05/25 00:45
Nursing documentation reviewed up to this point in time: agreed with
History of Present Illness
History of Present Illness:
84-year-old male with past medical history as noted presents to the emergency room for evaluation of shortness of breath. Patient has known history of COPD also CHF; he is on home oxygen as needed. He follows with pulmonology as well as cardiology
(Dr. Deana Palomino). He has a pacemaker. He also deals with chronic diarrhea related to pancreatic insufficiency. He presents today with his daughter from home for evaluation of shortness of breath. Symptoms have been increasing over the past
few days�daughter says really started Friday and have progressed since then. He reports shortness of breath at rest but minimal exertion significantly worsened symptoms. He describes orthopnea. He has had mild nonproductive cough. He has had
increased swelling in the legs. Daughter says that he had lost some weight and was having minimal symptoms from CHF and so his diuretic was discontinued about a month ago (metolazone). Daughter says that she gave him a dose yesterday and today but
symptoms were still significant and so brought to the emergency room for assessment. He has not had any chest pain. He has not had a fever. His only other complaint on review of systems is that he has had some redness and pain in his right
arm�initially started in the hand and now progressing up the arm. He did have a fall in January sustained a minor abrasion to the lateral forearm (he also sustained chest wall trauma, had outpatient x-ray at the time that was unremarkable and briefly
required opioid pain management which he has since weaned off).
Past History
Past History
ED Past Medical History: CAD, CHF, COPD, HTN, Hypercholesterolemia, NIDDM, Valvular disease, Hypothyroidism, Psychiatric (Anxiety, depression) and Other (PNA, Cirrhosis of the liver)
ED Past Surgical History: Cardiac (Pacemaker, TAVR, Stent X 1)
Social History
Tobacco: Former smoker
Alcohol: Former
Personal:
Living: with family
Employment: Retired
Family History
Family History: Other (Noncontributory)
Review of Systems
Review of Systems
All Other Systems: ROS reviewed and negative except as documented in HPI and ROS
Constitutional: Reports fatigue; Denies fever or chills
Respiratory: Reports cough and trouble breathing
Cardiac: Denies chest pain
ABD/GI: Reports diarrhea (Chronic); Denies abdominal pain, nausea or vomiting
: Denies flank pain
Musculoskeletal: Reports edema
Skin: Reports other (Redness and swelling in the right arm)
Neurological: Denies dizzy or headache
Phy Exam
Physical Exam
Physical Exam:
General: Awake, alert, oriented x3; no acute distress
Head: Normocephalic, atraumatic
Eyes: Conjunctiva normal
Throat: Airway intact, handling secretions
Neck: Trachea midline, JVD noted
Lungs: Patient has diminished breath sounds at the lung bases, scattered rhonchorous breath sounds throughout; he has no hypoxia, mild tachypnea with respiratory rate of 22-24
Heart: Regular rate and rhythm, no murmurs, gallops, or rubs appreciated
Abd: Soft, non distended, nontender
Neuro: No gross deficits
Extremities: Patient has +2 pitting edema in the lower extremities bilaterally; he has bilateral upper extremity edema as well right slightly greater than left; his right upper extremity is erythematous extending from the dorsum of the hand up to
the proximal one third of the forearm; area is warm and tender to the touch; he does have minor abrasion lateral aspect of the forearm on the right; he has good pulses in all extremities
Scores
Heart Failure Risk
Heart Failure Risk Score: Yes
History of Stroke or TIA: No
History of intubation for respiratory distress: No
Heart rate on ED arrival >/= 110: No
SaO2 <90% on arrival on room air: No
HR >/=110 during 3min walk test (or too ill to perform test): Yes
ECG has acute ischemic changes: No
Urea >/=12mmol/L (BUN 33.6mg/dL): Yes
Serum CO2>/=35mmol/L: No
Troponin I or T elevated to FL Level (0.4mg/dL): No
NT-proBNP >/=5,000ng/L (5,000pg/ml): No
HF Risk Score: 3
Admission Status: HIGH RISK 15.9% Consider SNF treatment or admission to hospital
Heart Score for Chest Pain Patients
STEMI patient?: Not applicable
Withdrawal Assessment of Alcohol
Withdrawal Assessment Completed?: Not applicable
Sepsis
Sepsis Screening
Sepsis Assessment: Sepsis
Sepsis Screen
Sepsis Screen: Sepsis
Date: 04/05/25
Time: 02:58
Course
Orders/Labs/Results
Orders:
Orders
04/05/25 00:45
Electrocardiogram (*1) Urgent
Reason for Study: Shortness of Breath
EKG- Treatment ONCE
CR Chest Portable - 1 View Urgent
Comment:
Reason For Exam: sob
Reason Study Needs to be Portable: Unable to Transport
04/05/25 01:00
CeFAZolin 2 GRAM [Ancef] 2 grams in 10 ml IV NOW
04/05/25 01:04
Complete Blood Count/With Diff Urgent
Comprehensive Metabolic Panel Urgent
NT-proBNP Urgent
Troponin I Urgent
04/05/25 01:45
Blood Culture Q30M
JULES Source: Blood/Venous
Specimen Description:
04/05/25 02:07
Interrogate Pacemaker- Treatment ONCE
04/05/25 02:15
Blood Culture Q30M
JULES Source: Blood/Venous
Specimen Description:
04/05/25 02:57
Furosemide [Lasix] 40 mg IV NOW STA
Abnormal Lab Results
04/05/25
01:04
WBC 17.1 H 10^3/uL
(4.8-10.8)
RBC 3.50 L 10^6/uL
(4.70-6.10)
Hgb 8.6 L g/dL
(13.0-18.0)
Hct 28.9 L %
(39.0-52.0)
MCH 24.6 L pg
(27.0-31.0)
MCHC 29.8 L g/dL
(33.0-37.0)
RDW 19.6 H %
(11.5-14.5)
Abs Immat Gran (auto) 0.1 H 10^3/uL
(0-0.05)
Absolute Neuts (auto) 14.5 H 10^3/uL
(1.4-6.5)
Absolute Lymphs (auto) 1.0 L 10^3/uL
(1.2-3.4)
Absolute Monos (auto) 1.2 H 10^3/uL
(0.1-0.6)
Immature Gran % 0.8 H %
(0-0.5)
Neutrophils % 84.4 H %
(42.2-75.2)
Lymphocytes % 5.7 L %
(20.5-51.1)
Chloride 112 H mmol/L
(98-107)
BUN 43 H mg/dl
(9-20)
Creatinine 1.8 H mg/dL
(0.7-1.3)
Glucose 104 H mg/dl
(70-99)
Calcium 8.1 L mg/dl
(8.4-10.2)
Total Protein 5.1 L g/dl
(6.3-8.2)
Albumin 2.7 L g/dl
(3.5-5.0)
04/05/25 01:04
04/05/25 01:04
Vital Signs
Initial and Last Documented VS:
Initial Vital Signs
Temp Pulse Resp BP Pulse Ox
36.6 C 80 22 120/54 93
04/05/25 00:04/05/25 00:04/05/25 00:04/05/25 00:04/05/25 00:31
Last Documented Vital Signs
Temp Pulse Resp BP Pulse Ox
36.6 C 80 22 120/54 93
04/05/25 00:04/05/25 00:04/05/25 00:04/05/25 00:04/05/25 00:31
MDM/Problems Addressed
Differential Diagnosis Includes:
Shortness of breath: Pneumonia, COPD exacerbation, CHF exacerbation
Arm pain: Gout, cellulitis, DVT less likely given that he is on Eliquis
MDM/Problems Addressed:
84-year-old male presents for evaluation of shortness of breath as described above; also complains of some right arm pain and redness. Vitals and exam as above. Labs were sent off including a CBC which showed a leukocytosis to 17. He has stable
anemia with a hemoglobin of 8.6. CMP shows renal insufficiency with a creatinine of 1.8 from a baseline of 1.3 likely cardiorenal. His proBNP is elevated. Troponin negative. His chest x-ray reviewed by me shows signs consistent with pulmonary
edema. Suspect his symptoms are related to acute CHF exacerbation. Will treat with IV diuretic. He does appear to have a right arm cellulitis and with his leukocytosis and tachypnea we did send off blood cultures. Treat with Ancef. Will plan
admit for continued management. Case discussed with hospitalist.
Chronic conditions affecting care:
CHF, COPD, chronic respiratory failure
Acute Exacerbation and/or Progression of Chronic Illness:
Acute CHF managed with diuretics
Acute cellulitis managed with antibiotics
*Radiology
Radiology exam reviewed: preliminary read by ED provider
*Pulse Oximetry
Patient hypoxic: no
*EKG
Interpreted by ED Provider?: Yes
Heart Rate: 74
Rhythm: av sequential
*Critical Care Note
Total Time (30-74mins, 75-104mins- exclusive of procedures): Not Applicable
Data Reviewed
Review of Other/Old Records Reveals: Labs and Records
Source: patient and family
Patient Management
Discussion with other providers: Hospitalist (Discussed with hospitalist)
Escalation/DeEscalation of care consider admission/obs:
Admission indicated
ED Attending Note
-
Portions of this chart may have been created with voice recognition software.� Occasional wrong word or��sound alike� substitutions may have occurred due to the inherent limitations of voice recognition software.
Discharge Plan
Departure
Patient Disposition: Admit
Date of Disposition: 04/05/25
Time of Disposition: 02:07
Admit to doctor: Sb
Presentation/result/management discussed w/ accepting MD/DO: Hospitalist
Discharge Problem:
Acute exacerbation of CHF (congestive heart failure), Cellulitis of arm, right, Acute renal insufficiency
Prescriptions:
No Action
levothyroxine 175 MCG tablet
175 mcg PO DAILY
cyanocobalamin (vitamin B-12) 1,000 MCG tablet
1,000 mcg PO QPM
sertraline 50 MG tablet
50 mg PO HS
pantoprazole 40 MG tablet,delayed release (DR/EC)
40 mg PO QPM
budesonide 0.5 MG/2 ML suspension for nebulization
0.5 mg inhalation R BID 30 Days Qty: 2 0RF
magnesium oxide 400 MG tablet
400 mg PO QPM
Jardiance 10 MG tablet
10 mg PO DAILY
acetaminophen [Tylenol Extra Strength] 500 MG tablet
1,000 mg PO TIDPRN PRN (Reason: mild pain)
prednisone 10 mg Tablet
10 mg PO DAILY
ipratropium-albuterol 0.5 mg-3 mg(2.5 mg base)/3 mL Solution For Nebulization
3 ml INHALATION R TID
azithromycin 250 mg Tablet
250 mg PO QPM
donepezil 10 mg Tablet
10 mg PO HS
glimepiride 1 mg Tablet
1 mg PO DAILY
benzonatate 100 mg Capsule
100 mg PO DAILYPRN PRN (Reason: cough)
simethicone 80 mg Tablet,Chewable
80 mg PO DAILYPRN PRN (Reason: gas/bloating)
Creon 24,000-76,000 -120,000 unit Capsule,Delayed Release(Dr/Ec)
1 cap PO AC
PreserVision AREDS 2,148 mcg-113 mg-45 mg-17.4mg Tablet
1 tab PO BID
calcium-magnesium 500 mg/40 mg tablet
1 tab PO BID
insulin aspart U-100 [Novolog FlexPen U-100 Insulin] 100 unit/mL (3 mL) insulin pen
0 sliding scale dose SC AC
cholecalciferol (vitamin D3) 25 mcg (1,000 unit) Tablet
25 mcg PO QPM
doxazosin 1 mg Tablet
3 mg PO HS 30 Days Qty: 90 0RF
clopidogrel 75 mg Tablet
75 mg PO DAILY 30 Days Qty: 30 0RF
Eliquis 2.5 mg Tablet
2.5 mg PO BID 30 Days Qty: 60 0RF
metolazone 2.5 mg Tablet
2.5 mg PO .WED & SAT. AM
atorvastatin [Lipitor] 40 mg Tablet
40 mg PO HS
torsemide 20 mg Tablet
20 mg PO .DINNER
amiodarone 200 mg Tablet
200 mg PO .DINNER
guaifenesin [Mucinex] 600 mg Tablet Extended Release 12hr
600 mg PO BID
potassium chloride 20 mEq Tablet Extended Release
20 meq PO DAILY
torsemide 20 mg tablet
30 mg PO DAILY
amlodipine 10 MG tablet
5 mg PO DAILY
metoprolol succinate 25 mg tablet extended release 24 hr
25 mg PO BID
Referrals:
UNKNOWN,NO INTERVIEW [Family Provider] -
Interventions
Interventions:
*Risk Screen - Suicide Last Done: 04/05/25 00:31
*General Assessment Last Done: 04/05/25 01:04
*Neglect/Abuse Screening Last Done: 04/05/25 00:31
*ED- Fall Risk Assessment Last Done: 04/05/25 01:04
*ED COVID-19 Vaccine History Last Done: 04/05/25 01:05
Discharge Date and Time
Print Language: GUATEMALAN
[2025-04-05 01:46] LABS: ALT (SGPT) 40 U/L (0-50); AST (SGOT) 25 U/L (17-59); Albumin 2.7 g/dl (3.5-5.0); Alkaline Phosphatase 107 U/L (38-126); Blood Urea Nitrogen 43 mg/dl (9-20); Calcium 8.1 mg/dl (8.4-10.2); Carbon Dioxide 27 mmol/L (22-30); Chloride 112 mmol/L (98-107); Estimated Creatinine Clearance 32 ml/min; Glucose 104 mg/dl (70-99); Potassium 4.9 mmol/L (3.5-5.1); Sodium 144 mmol/L (135-145); Total Bilirubin 0.3 mg/dl (0.2-1.3); Total Protein 5.1 g/dl (6.3-8.2); eGFR 36.66
[2025-04-05 02:00] LABS: NT-proBNP 2930 pg/ml; Troponin I 0.015 ng/ml
[2025-04-05] MEDS: LASIX 40 MG IV ×3 (03:01→15:54)
--- NOTE | 2025-04-05 03:34 | EDRN ---
Patient up to bedside commode to urinate and small amount of stool, patient reports lately every time he urinates he also has a BM at the same time, patient back in bed resting comfortably at this time, call [facility]ure in reach, daughter is heading home,
patient aware to call if he needs to use the commode again.
--- NOTE | 2025-04-05 04:17 | EDRN ---
Patient up to bedside commode to urinate and back in bed and Dr. Basurto in to do admission
--- NOTE | 2025-04-05 04:30 | HPS.HSE ---
Family Physician
-
Family Physician: NO INTERVIEW UNKNOWN
Chief Complaint
-
SOB
History of Present Illness
Patient is an 84y M with PMH significant for ASCVD, CHF and COPD who presents to ED complaining of SOB. Patient states that he had 2 falls at home about 3 weeks ago. He has had chest discomfort / some difficulty breathing since that time. He
was seen by his PCP and x-rays were reportedly negative for any rib fractures, etc. His PCP also advised that he hold his metolazone last and Sat due to abnormal labs / worsening renal insufficiency.
Patient states that he has become significantly more SOB over the past 3-4 days. In addition, he has noted marked LE edema extending into the thighs. He states that this is quite unusual for him.
He has been monitoring his weight at home daily and notes that it is up only a few pounds over his dry weight (187 compared to 185).
With worsening dyspnea and edema, he presented to the ED this evening for further evaluation.
Patient also complains of swelling and pain in the R hand. He states that this started with pain / swelling of the L 3rd finger. This then resolved and he had swelling and pain in the L great toe.
The pain / swelling in the R hand has been present for about 3 days.
Medical History
Past Medical History
Past Medical History: Reports Other
Additional Past Medical History:
ASCVD
Chronic HFpEF
s/p TAVR
Heart Block s/p PPM
Atrial Fibrillation
Hypothyroidism
ILD
Chronic Hypoxemia (Nocturnal O2 at Home)
COPD
Hypertension
CKD III
Anemia of Chronic Disease
DM-II
Pancreatic Insufficiency
Past Surgical History: Reports Other
Additional Past Surgical History:
PTCA with Stent
TAVR
PPM Placement
Right FELIPA
Cataracts
Social History
Tobacco: Former Smoker (Quit smoking about 20 years ago. > 40 pack years total use.)
Alcohol: Former (Quit drinking entirely about 15 years ago.)
Drug: None
Family History
Family History: Not pertinent
Allergies / Home Medications
Allergies reflects when Allergies were last updated in [facility].
Home Medications with original date entered in [facility]
Allergy/Medication List:
Allergies
Allergy/AdvReac Type Severity Reaction Status Date / Time
No Known Allergies Allergy Verified 04/05/25 00:35
Home Medications
cyanocobalamin (vitamin B-12) 1,000 mcg tablet 1,000 mcg PO QPM Supplement 01/13/20
levothyroxine 175 mcg tablet 175 mcg PO DAILY Thyroid 01/13/20
sertraline 50 mg tablet 50 mg PO HS Mental Health/Anxiety 01/13/20
pantoprazole 40 mg tablet,delayed release 40 mg PO QPM Gastrointestinal issue 05/15/20
budesonide 0.5 mg/2 mL suspension for nebulization 0.5 mg (2 mL) inhalation R BID 30 days ##2 05/07/21
magnesium oxide 400 mg PO QPM Supplement 03/15/22
empagliflozin 10 mg tablet (Jardiance) 10 mg PO DAILY Diabetes 04/10/22
acetaminophen 500 mg tablet (Tylenol Extra Strength) 1,000 mg PO TIDPRN PRN mild pain 10/17/23
azithromycin 250 mg tablet 250 mg PO QPM Infection 05/25/24
benzonatate 100 mg capsule 100 mg PO DAILYPRN PRN cough 05/25/24
calcium-magnesium 1 tab PO BID Supplement 05/25/24
donepezil 10 mg tablet 10 mg PO HS Mental Health/Anxiety 05/25/24
glimepiride 1 mg tablet 1 mg PO DAILY Diabetes 05/25/24
ipratropium 0.5 mg-albuterol 3 mg (2.5 mg base)/3 mL nebulization soln 3 ml inhalation R TID Lung/Breathing Issues 05/25/24
hkfpsf-mcdeadhw-nzcvzpa 24,000-76,000-120,000 unit capsule,delayed rel (Creon) 1 cap PO AC ENZYME 05/25/24
prednisone 10 mg tablet 10 mg PO DAILY Anti-Inflammatory 05/25/24
simethicone 80 mg chewable tablet 80 mg PO DAILYPRN PRN gas/bloating 05/25/24
vitamins A,C,C-xrlx-lasdkb 2,148 mcg-113 mg-45 mg-17.4 mg tablet (PreserVision AREDS) 1 tab PO BID Supplement 05/25/24
cholecalciferol (vitamin D3) 25 mcg (1,000 unit) tablet 25 mcg PO QPM Supplement 06/17/24
insulin aspart U-100 100 unit/mL (3 mL) subcutaneous pen (Novolog FlexPen U-100 Insulin aspart) 0 sliding scale dose SC AC Diabetes 06/17/24
apixaban 2.5 mg tablet (Eliquis) 2.5 mg PO BID 30 days #60 tabs 06/22/24
clopidogrel 75 mg tablet 75 mg PO DAILY 30 days #30 tabs 06/22/24
doxazosin 1 mg tablet 3 mg (3 x 1 mg) PO HS 30 days #90 tabs 06/22/24
amiodarone 200 mg tablet 200 mg PO .DINNER 04/05/25
amlodipine 10 mg tablet 5 mg PO DAILY Blood pressure 04/05/25
atorvastatin 40 mg tablet (Lipitor) 40 mg PO HS 04/05/25
guaifenesin 600 mg tablet, extended release 12 hr (Mucinex) 600 mg PO BID 04/05/25
metolazone 2.5 mg tablet 2.5 mg PO .WED & SAT. AM 04/05/25
metoprolol succinate 25 mg tablet,extended release 24 hr 25 mg PO BID 04/05/25
potassium chloride 20 mEq tablet,extended release 20 meq PO DAILY 04/05/25
torsemide 20 mg tablet 20 mg PO .DINNER 04/05/25
torsemide 20 mg tablet 30 mg PO DAILY 04/05/25
Review of Systems
-
History Source: Patient
A 12 point ROS was completed and negative except as noted: Yes
Constitutional: Reports Weight Gain and Fatigue; Denies Fever or Chills
EENT: Denies Sore Throat
Respiratory: Reports Cough and Trouble Breathing; Denies Hemoptysis
Cardiac: Denies Chest Pain, Diaphoresis, Palpitations or Syncope
Abdomen/GI: Denies Abdominal Pain, Nausea, Vomiting, Diarrhea, Bloody Stools or Black Stools
: Denies Dysuria, Frequency or Flank Pain
Musculoskeletal: Reports Joint Pain, Joint Swelling and Edema
Neurological: Reports Weakness; Denies Dizzy or Headache
Psych: Denies Depression or Anxiety
Physical Exam
Vital Signs
Vital Signs
Temp Pulse Resp BP Pulse Ox
97.8 F 71 22 142/59 99
04/05/25 00:31 04/05/25 03:30 04/05/25 03:30 04/05/25 03:01 04/05/25 01:30
Physical Exam
General: Other (84y M in no acute distress.)
HEENT: Moist mucous membranes, PERRLA and Other (Pos HJR.)
Respiratory: Other (Few bibasilar rales. No wheezing or rhonchi.)
Cardiac: S1/S2, Regular Rhythm and Murmur (III/ JOHNNY)
GI: Soft, Non Tender, Non Distended and Normal Bowel Sounds
Musculoskeletal: No Clubbing, No Cyanosis and Other (4+ pitting edema b/l LEs to the thighs.)
Skin: Other (Erythema and tenderness over the R 1-2 MCP joints. Erythema extends proximally into the RUE. Normal ROM at the elbow.)
Neuro: AO x 3
Laboratory Results
-
04/05/25 01:04
04/05/25 01:04
Laboratory Results
Total Bilirubin 0.3 mg/dl (0.2-1.3) 04/05/25 01:04
AST 25 U/L (17-59) 04/05/25 01:04
ALT 40 U/L (0-50) 04/05/25 01:04
Alkaline Phosphatase 107 U/L (38-126) 04/05/25 01:04
Troponin I 0.015 ng/ml 04/05/25 01:04
Impression/Plan
-
A/P: Patient is an 84y M with PMH significant for ASCVD, CHF, COPD and ILD who presents to ED complaining of SOB and edema.
Acute on Chronic HFpEF
Valvular Heart Disease s/p TAVR
- Admit for further evaluation and treatment.
- Patient with marked edema and subjective dyspnea c/w primarily right-sided HF.
- Note that his last two doses of metolazone were held.
- IV Lasix BID for now and follow I/Os, daily weights and clinical effects.
- Update Echo.
- Cardiology evaluation for additional recommendations.
FAHEEM on CKD III
- SCr = 1.8 compared to baseline of 1.3.
- Likely due to pre-renal etiology / CHF.
- Follow for improvement with effective diuresis.
Migratory Polyarthritis
- History sounds more c/w pseudogout given multiple joints involved, etc.
- Cellulitis seems less like based on migratory nature of symptoms.
- Will continue IV abx for now and follow for improvement.
- Will also increase usual PO prednisone dose and follow for improvement.
- Check ESR, uric acid.
ASCVD
Paroxysmal Atrial Fibrillation
Heart Block s/p PPM
- Stable. Continue current CV med regimen.
- Continue Eliquis for stroke risk reduction.
Benign Hypertension
- Stable. Continue current meds and adjust as needed.
- Holding parameters to avoid hypotension / allow effective diuresis.
DM-II
- Stable. Hold sulfonylurea. Continue Jardiance
- Follow glucose and cover with SSI as needed.
- Update A1C.
COPD
Chronic Hypoxemic Respiratory Insufficiency / IMANI
- Stable. Continue usual neb regimen / inhaled medications.
- Continue supplemental O2 and adjust as needed.
Hypothyroidism
- Stable. Continue T4 supplementation.
Pancreatic Insufficiency
- Stable. Continue Creon with meals.
Anemia of Chronic Disease
- Hgb slightly decreased from usual baseline.
- No reported bleeding issues.
- Follow for changes with diuresis.
- Check iron studies, etc.
DVT Prophylaxis: On Eliquis
Code Status: DNR
--- NOTE | 2025-04-05 05:09 | EDRN ---
Patient used urinal to urinate, asked for some water, provided a cup of ice water, patient laid back in bed and resting, turned down lights for patient, call mcclure in reach.
[2025-04-05 06:50] LABS: Hematocrit 27.9 % (39.0-52.0); Hemoglobin 8.4 g/dL (13.0-18.0); Mean Corp Hgb Conc. 30.1 g/dL (33.0-37.0); Mean Corpuscular Hgb 24.6 pg (27.0-31.0); Mean Corpuscular Volume 81.6 fL (80.0-94.0); Mean Platelet Volume 10.1 fL (7.4-10.4); Platelet Count 225 10^3/uL (130-400); Red Blood Cell Count 3.42 10^6/uL (4.70-6.10); Red Cell Dist. Width 19.6 % (11.5-14.5); White Blood Cell Count 17.5 10^3/uL (4.8-10.8)
[2025-04-05 06:56] LABS: Blood Urea Nitrogen 43 mg/dl (9-20); Calcium 8.2 mg/dl (8.4-10.2); Carbon Dioxide 31 mmol/L (22-30); Chloride 112 mmol/L (98-107); Estimated Creatinine Clearance 33 ml/min; Glucose 67 mg/dl (70-99); Iron 21 ug/dl (49-181); Potassium 4.5 mmol/L (3.5-5.1); Sodium 144 mmol/L (135-145); Uric Acid 12.6 mg/dl (3.5-8.5); eGFR 39.26
[2025-04-05 07:05] LABS: Percent Saturation 7 % (20-50); Total Iron Binding Capacity 268 ug/dl (261-462)
[2025-04-05 07:06] LABS: Erythrocyte Sed Rate 56 mm/hour (0-20)
[2025-04-05 07:22] LABS: Troponin I 0.016 ng/ml
[2025-04-05] MEDS: DUONEB 3 ML INH (07:34)
[2025-04-05] MEDS: PULMICORT 0.5 MG INH ×2 (07:34→19:26)
[2025-04-05 07:42] LABS: TSH Reflex To Free T4 1.37 uIU/ml (0.47-4.68)
[2025-04-05 07:58] LABS: Glucose - Point of Care 79 mg/dl (70-99)
[2025-04-05 08:01] LABS: Vitamin B12 > 1000 pg/ml (239-931)
[2025-04-05 09:09] LABS: Glycohemoglobin (HgbA1c) 6.8 % (4.0-5.6)
--- NOTE | 2025-04-05 09:23 | W.PN.HOSP.TC ---
Today's Communication/Plan
-
IV diuresis
hand x-ray
continue higher dose prednisone and IV Cefazolin for now
Cardiology and Ortho consults
Assessment / Plan
Assessment / Plan
A/P: Patient is an 84y M with PMH significant for ASCVD, CHF, COPD and ILD who presents to ED complaining of SOB and edema admitted for heart failure exacrebation.
Acute on Chronic HFpEF
Valvular Heart Disease s/p TAVR
- Patient with marked edema and subjective dyspnea
- Note that his last two doses of metolazone were held in setting of FAHEEM
- IV Lasix 40mg BID, adjust as needed
- Update Echo.
- Cardiology consulted
FAHEEM on CKD III
- SCr = 1.8 compared to baseline of 1.3. slowly improved with diuresis
- Likely due to pre-renal etiology / CHF.
- Follow for improvement with effective diuresis.
Migratory Polyarthritis
- History sounds more c/w pseudogout given multiple joints involved, etc.
- Cellulitis seems less like based on migratory nature of symptoms.
- Will continue IV abx for now and follow for improvement.
- Will also increase usual PO prednisone dose and follow for improvement.
- x-ray ordered, discussing case with Orthopedics
ASCVD
Paroxysmal Atrial Fibrillation
Heart Block s/p PPM
- Stable. Continue current CV med regimen.
- Continue Eliquis for stroke risk reduction.
Benign Hypertension
- Stable. Continue current meds and adjust as needed.
- Holding parameters to avoid hypotension / allow effective diuresis.
DM-II
- Stable. Hold sulfonylurea. Continue Jardiance
- Follow glucose and cover with SSI as needed.
- Update A1C.
COPD
Chronic Hypoxemic Respiratory Insufficiency / IMANI
- Stable. Continue usual neb regimen / inhaled medications.
- Continue supplemental O2 and adjust as needed.
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
Hypothyroidism
- Stable. Continue T4 supplementation.
Pancreatic Insufficiency
- Stable. Continue Creon with meals.
Anemia of Chronic Disease
- Hgb slightly decreased from usual baseline.
- No reported bleeding issues.
- Follow for changes with diuresis.
- Check iron studies, etc.
DVT Prophylaxis: On Eliquis
Code Status: DNR
Anticipated Discharge: > 48 hours
Subjective/Interval History
-
Date of Service: April 05, 2025
patient is urinating frequently and starting to feel better
he has swelling of right hand; tenderness along 3rd digit, cannot flex
Objective Data
-
Labs:
Laboratory Results
04/05/25 04/05/25
01:04 06:31
WBC 17.1 H 17.5 H
Hgb 8.6 L 8.4 L
Hct 28.9 L 27.9 L
Plt Count 242 225
Sodium 144 144
Potassium 4.9 4.5
Chloride 112 H 112 H
Carbon Dioxide 27 31 H
BUN 43 H 43 H
Creatinine 1.8 H 1.7 H
Glucose 104 H 67 L
Calcium 8.1 L 8.2 L
Total Bilirubin 0.3
AST 25
ALT 40
Alkaline Phosphatase 107
Vital Signs:
Vital Signs
Temp Pulse Resp BP Pulse Ox
97.5 F 71 23 111/72 97
04/05/25 08:12 04/05/25 07:38 04/05/25 07:38 04/05/25 04:00 04/05/25 07:38
I&O
04/04/25 04/05/25 04/06/25
06:59 06:59 06:59
Output Total 750 / 750
Balance -750 / -750
Review of Systems
-
History Source: Patient
All other systems: Reviewed and negative
Physical Exam
-
General: No Apparent Distress
HEENT: Nose Appears Normal
Cardiac: Regular Rhythm and S1/S2
GI: Soft, Nontender and Nondistended
Musculoskeletal: No Clubbing, No Cyanosis, Edema, Right Lower Extrem, Edema, Left Lower Extrem and Other (right hand swelling with tenderness along 3rd digit, cannot flex)
Skin: Warm
Neuro: Awake, Alert, Oriented and AO x 3
Psych: Calm
Data Reviewed
-
Diagnostic Radiology: Report Reviewed by me
Labs: Labs Reviewed by me
[2025-04-05] MEDS: NOVOLOG FLEXPEN-MODERATE RESISTANCE SC ×2 (09:50→12:53)
[2025-04-05] MEDS: FARXIGA 10 MG PO (09:51)
[2025-04-05] MEDS: ZENPEP DELAYED RELEASE CAPSULE 2 CAPSULE PO ×3 (09:51→15:52)
[2025-04-05] MEDS: PLAVIX 75 MG PO (09:51)
[2025-04-05] MEDS: MUCINEX 600 MG PO ×2 (09:51→19:59)
[2025-04-05] MEDS: DELTASONE 40 MG PO (09:52)
[2025-04-05] MEDS: ELIQUIS 2.5 MG PO ×2 (09:52→19:59)
[2025-04-05] MEDS: TOPROL XL 25 MG PO ×2 (09:53→19:59)
[2025-04-05] MEDS: ANCEF 5 IV ×2 (09:55→16:36)
[2025-04-05] MEDS: SYNTHROID 175 MCG PO (09:58)
--- NOTE | 2025-04-05 10:07 | CON.CAR ---
Addendum entered and electronically signed by Antonino Leung MD 04/05/25 16:09:
I saw and examined the patient.
The Asset Coordinator's note was reviewed and I agree with the note.
Comment:
GEN: No distress, awake, Ox3
HEENT: supple, anicteric, mmm
LUNGS: bilat rhonchi
CV: Reg, S1/S2, / syst LSB,S3+
ABD: soft, BS+, NT/ND
EXT: ++ edema
NEURO: Gross non-focal
SKIN: No rash
PLan:
84-year-old male well-known to our service with past medical history of chronic heart failure with preserved ejection fraction, coronary arteries, paroxysmal atrial relation, TAVR, permanent pacemaker, CKD 3, nonsustained VT, hypertension and
hyperlipidemia presents with 1 week of fatigue, shortness of breath, edema, cough, and orthopnea. He also had right hand pain as well. His weight is up significantly. He does have some orthopnea as well.
He presents with acute on chronic heart failure with preserved ejection fraction with history of TAVR. Pacemaker check reveals no significant atrial fibrillation.
We will begin with aggressive IV diuresis. His metolazone was recently held. Increase Lasix to 80 mg IV twice daily. Continue to follow creatinine. This is improved and down to 1.7.
We will repeat an echocardiogram and reevaluate his LVEF and aortic valve.
Cont medical therapy for coronary artery disease. Continue Toprol, atorvastatin, Plavix, and Eliquis.
Continue amiodarone. He remains in sinus rhythm.
Original Note:
Consultation
Consultation Request
Date/Time Consultation Performed: 04/05/25
Requesting Provider: Dr. Basurto
Performing Provider: Latasha Hendricks PA-C for Dr. Leung
Reason for Consultation: CHF
Medical History
-
Chief Complaint: fall, swelling
History of Present Illness:
Geoffrey is an 84 year old male with PMH of chronic HFpEF, paroxysmal atrial fibrillation, CAD s/p LAD PCI 05/2024, TAVR, Medtronic PPM, COPD, carotid stenosis, hypertension, hyperlipidemia, hypothyroidism, DM, PVCs/NSVT, renal insufficiency who
presented to [facility] due to swelling and SOB. He reports he started noting increasing swelling approximately 1 week ago. He reports shortly before this he was advised to stop his metolazone due to worsening kidney function (he had previously been on
metolazone WeSa however then was increased ~4 weeks ago by PCP to MWF dosing). Also complains, along with the swelling in his upper extremities with weeping, with erythema progressing up RUE. States initially started in L 3rd finger, then went to L
great toe, and is now in R hand. He tells me approximately 3 weeks ago he had a fall outside on the concrete. He denies preceding dizziness or loss of consciousness. He then states he had another fall 2 days later where he tripped over his oxygen
tubing. He reports again no dizziness or loss of consciousness, however states he more significantly injured himself with that fall, and was concern for a rib fracture but reports he had imaging which was negative for this. His norvasc dose was
decreased to 5mg daily in setting of falls. He normally only uses supplemental oxygen at nighttime. proBNP 2930. Chest x-ray with evidence of acute pulmonary edema. Dry weight historically has been around 185 pounds.
PMH:
Chronic HFpEF
Paroxysmal atrial fibrillation
Chronic Eliquis anticoagulation
CAD
s/p BLADIMIR to mid LAD 01/13/2020
s/p BLADIMIR to prox LAD 06/21/2024
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
CHB s/p Medtronic DC PPM 05/15/2020
COPD/ILD, steroid dependent
Carotid stenosis
Hypertension
Hyperlipidemia
Hypothyroidism
Type 2 DM
Renal insufficiency
Frequent PVCs, NSVT
Past Medical History
Past Medical History: Other (In HPI)
Past Surgical History: Cardiac (LAD PCI 01/2020, TAVR 05/2020, PPM 05/2020) and Other (b/l cataract surgery, colon resection, R FELIPA 05/2022)
Social History
Tobacco: Former Smoker
Alcohol: None
Drug: None
Employment: Retired
Family History
Family History: Reviewed & Not Pertinent
Allergies / Home Medications
Allergy/AdvReac Type Severity Reaction Status Date / Time
No Known Allergies Allergy Verified 04/05/25 00:35
�Medication �Instructions �Recorded �Confirmed �Type
cyanocobalamin (vitamin B-12) 1,000 mcg PO QPM Supplement 01/13/20 04/05/25 History
1,000 mcg tablet
levothyroxine 175 mcg tablet 175 mcg PO DAILY Thyroid 01/13/20 04/05/25 History
sertraline 50 mg tablet 50 mg PO HS Mental Health/Anxiety 01/13/20 04/05/25 History
pantoprazole 40 mg tablet,delayed 40 mg PO QPM Gastrointestinal issue 05/15/20 04/05/25 History
release
budesonide 0.5 mg/2 mL suspension 0.5 mg (2 mL) inhalation R BID 30 05/07/21 04/05/25 Rx
for nebulization days ##2
magnesium oxide 400 mg PO QPM Supplement 03/15/22 04/05/25 History
empagliflozin 10 mg tablet 10 mg PO DAILY Diabetes 04/10/22 04/05/25 History
(Jardiance)
acetaminophen 500 mg tablet 1,000 mg PO TIDPRN PRN mild pain 10/17/23 04/05/25 History
(Tylenol Extra Strength)
azithromycin 250 mg tablet 250 mg PO QPM Infection 05/25/24 04/05/25 History
benzonatate 100 mg capsule 100 mg PO DAILYPRN PRN cough 05/25/24 04/05/25 History
calcium-magnesium 1 tab PO BID Supplement 05/25/24 04/05/25 History
donepezil 10 mg tablet 10 mg PO HS Mental Health/Anxiety 05/25/24 04/05/25 History
glimepiride 1 mg tablet 1 mg PO DAILY Diabetes 05/25/24 04/05/25 History
ipratropium 0.5 mg-albuterol 3 mg 3 ml inhalation R TID 05/25/24 04/05/25 History
(2.5 mg base)/3 mL nebulization Lung/Breathing Issues
soln
gngwkb-famdvqhh-erxdyiy 1 cap PO AC ENZYME 05/25/24 04/05/25 History
24,000-76,000-120,000 unit
capsule,delayed rel (Creon)
prednisone 10 mg tablet 10 mg PO DAILY Anti-Inflammatory 05/25/24 04/05/25 History
simethicone 80 mg chewable tablet 80 mg PO DAILYPRN PRN gas/bloating 05/25/24 04/05/25 History
vitamins A,C,W-mdne-tmxkiz 2,148 1 tab PO BID Supplement 05/25/24 04/05/25 History
mcg-113 mg-45 mg-17.4 mg tablet
(PreserVision AREDS)
cholecalciferol (vitamin D3) 25 25 mcg PO QPM Supplement 06/17/24 04/05/25 History
mcg (1,000 unit) tablet
insulin aspart U-100 100 unit/mL 0 sliding scale dose SC AC Diabetes 06/17/24 04/05/25 History
(3 mL) subcutaneous pen (Novolog
FlexPen U-100 Insulin aspart)
apixaban 2.5 mg tablet (Eliquis) 2.5 mg PO BID 30 days #60 tabs 06/22/24 04/05/25 Rx
clopidogrel 75 mg tablet 75 mg PO DAILY 30 days #30 tabs 06/22/24 04/05/25 Rx
doxazosin 1 mg tablet 3 mg (3 x 1 mg) PO HS 30 days #90 06/22/24 04/05/25 Rx
tabs
amiodarone 200 mg tablet 200 mg PO .DINNER 04/05/25 04/05/25 History
amlodipine 10 mg tablet 5 mg PO DAILY Blood pressure 04/05/25 04/05/25 History
atorvastatin 40 mg tablet (Lipitor) 40 mg PO HS 05/06/25 05/06/25 History
guaifenesin 600 mg tablet, 600 mg PO BID 04/05/25 04/05/25 History
extended release 12 hr (Mucinex)
metolazone 2.5 mg tablet 2.5 mg PO .WED & SAT. AM 04/05/25 04/05/25 History
metoprolol succinate 25 mg 25 mg PO BID 04/05/25 04/05/25 History
tablet,extended release 24 hr
potassium chloride 20 mEq 20 meq PO DAILY 04/05/25 04/05/25 History
tablet,extended release
torsemide 20 mg tablet 20 mg PO .DINNER 04/05/25 04/05/25 History
torsemide 20 mg tablet 30 mg PO DAILY 04/05/25 04/05/25 History
Review of Systems
-
History Source: Patient
All other systems: Negative unless noted
Physical Exam
Vital Signs
Temp Pulse Resp BP Pulse Ox
97.5 F 71 23 111/72 97
04/05/25 08:12 04/05/25 07:38 04/05/25 07:38 04/05/25 04:00 04/05/25 07:38
Lab Results
04/05/25 06:31
04/05/25 06:31
Troponin I 0.016 ng/ml 04/05/25 06:31
Nfs-R-Rowzbzjogtv Pept 2930 pg/ml 04/05/25 01:04
Physical Exam
General: No Apparent Distress, Comfortable and Other (on supp O2)
HEENT: Normocephalic, Anicteric and Moist Mucous Membranes
Respiratory: Crackles (scattered B/L)
Cardiac: Regular Rhythm
GI: Soft, Non Tender, Non Distended and Normal Bowel Sounds
Musculoskeletal: No Clubbing, No Cyanosis and Edema (4+ edema of B/L UE and LE with weeping)
Skin: Warm and Dry
Neuro: AO x 3
Impression / Plan
-
Primary Pocket Stitcher: Dr. Deana Palomino
Assessment:
Presentation with SOB
Anasarca
FAHEEM on CKD
Concern for RUE cellulitis
Chronic HFpEF
Paroxysmal atrial fibrillation
Chronic Eliquis anticoagulation
CAD
s/p BLADIMIR to mid LAD 01/13/2020
s/p BLADIMIR to prox LAD 06/21/2024
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
MS/MR, mild to mod by echo 2023
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
COPD
Carotid stenosis
Hypertension
Hyperlipidemia
Hypothyroidism
Type 2 DM
Renal insufficiency
Frequent PVCs, NSVT
DNR code status
Echo 06/18/2024: EF 50 to 55%, stage II diastolic dysfunction, mild to moderate MS with peak/mean gradient 16/8 mmHg, moderate MR, severely dilated left atrium, status post number 26 mm TAVR with peak/mean gradients of 25/17 mmHg, trace AR, trace TR,
PAP 30 mmHg
Plan:
-Patient presents with SOB and anasarca after OP metolazone was held over the last 1.5 weeks.
-proBNP elevated at 2900. CXR with evidence of acute pulm edema.
-currently on IV lasix 40mg BID. as OP was on torsemide 30mg daily and 20mg HS with metolazone 2-3 times per week. would consider increasing dose to 80mg IV BID. dry weight previously felt to be ~185 pounds.
-Cr 1.7 on 04/05. baseline ~1.3
-CHF education
-wean supp O2 as able
-check echo, last from 05/2024 as above
-interrogate device. in asensed vpaced rhythm by tele and EKG. continue amiodarone
-continue OP toprol. also remains on OP farxiga. not felt to be candidate for stanley/arb given chronic renal insufficiency and relative hypotension.
-continued on OP cardura. OP norvasc presently on hold.
-continue plavix, eliquis given history of LAD PCI 05/2024. trops 0.014, 0.016. no CP reported
-abx for possible RUE cellulitis per primary service
-PT/OT
Data Reviewed
-
EKG: Tracing Personally Visualized and interpreted
Radiology: Report Reviewed by me
Medical Tests (Nuc Med, Echo etc): Report Reviewed by me
Labs: Labs Reviewed by me
Old Records: Reviewed
--- NOTE | 2025-04-05 11:11 | W.PN.UPDATE ---
Update Note
Progress Note Update
Patient seen and examined
Right hand swelling, mostly over the middle finger with difficulities with motion
He has history of left hand and great toe pain and swelling last week that self resolved
WBC and ESR are elevated
X-rays show diffuse arthritis
A/P
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
Recommend steroids
Will follow
Dictated [id number]
--- NOTE | 2025-04-05 11:26 | W.PN.UPDATE ---
Update Note
Progress Note Update
carelink device interrogation obtained and reviewed. in afib <0.1% of time. vpaced 99.9% of time, apaced 34.3%. remaining battery 7.5years.
[2025-04-05 11:28] LABS: Troponin I < 0.012 ng/ml
[2025-04-05 12:25] LABS: Glucose - Point of Care 136 mg/dl (70-99)
--- NOTE | 2025-04-05 14:10 | PTCARENOTE ---
Received pt from ED via stretcher. Pt ambulated to bed x1 with RW. TRACEY. AAOx3v
--- NOTE | 2025-04-05 14:10 | PTCARENOTE ---
Received pt from ED via stretcher. Pt ambulated to bed x1 with RW. TRACEY. AAOx3. fire production operator placed. Assessed and oriented to room .Call mcclure within close reach. Will cont to monitor.
[2025-04-05 16:43] LABS: Glucose - Point of Care 274 mg/dl (70-99)
[2025-04-05] MEDS: NOVOLOG FLEXPEN-MODERATE RESISTANCE 5 UNITS SC (17:22)
[2025-04-05] MEDS: PACERONE 200 MG PO (17:25)
[2025-04-05] MEDS: ZITHROMAX 250 MG PO (17:25)
[2025-04-05] MEDS: PROTONIX 40 MG PO (17:25)
[2025-04-05 18:19] LABS: Troponin I < 0.012 ng/ml
[2025-04-05] MEDS: ARICEPT 10 MG PO (21:05)
[2025-04-05] MEDS: ZOLOFT 50 MG PO (21:05)
[2025-04-05] MEDS: LIPITOR 40 MG PO (21:05)
[2025-04-05] MEDS: CARDURA 3 MG PO (21:06)
[2025-04-05 21:44] LABS: Glucose - Point of Care 178 mg/dl (70-99)
[2025-04-06 04:00] VITALS: BP 116/56
[2025-04-06] MEDS: TYLENOL 650 MG PO ×3 (05:23→18:35)
[2025-04-06] MEDS: SYNTHROID 175 MCG PO (05:24)
[2025-04-06 06:00] VITALS: BMI 26.5
[2025-04-06] MEDS: PULMICORT 0.5 MG INH ×2 (07:27→19:13)
[2025-04-06] MEDS: DUONEB 3 ML INH ×2 (07:27→19:13)
[2025-04-06 07:43] VITALS: BP 135/52
[2025-04-06 08:02] LABS: Glucose - Point of Care 188 mg/dl (70-99)
[2025-04-06] MEDS: NOVOLOG FLEXPEN-MODERATE RESISTANCE 1 UNITS SC ×2 (08:06→12:08)
[2025-04-06] MEDS: LASIX 80 MG IV ×2 (08:07→15:40)
[2025-04-06] MEDS: ZENPEP DELAYED RELEASE CAPSULE 2 CAPSULE PO ×3 (08:07→15:40)
[2025-04-06] MEDS: ANCEF 5 IV ×2 (08:07)
[2025-04-06] MEDS: TOPROL XL 25 MG PO ×2 (08:08→19:38)
[2025-04-06] MEDS: MUCINEX 600 MG PO ×2 (08:08→19:38)
[2025-04-06] MEDS: ELIQUIS 2.5 MG PO ×2 (08:08→19:38)
[2025-04-06] MEDS: FARXIGA 10 MG PO (08:08)
[2025-04-06] MEDS: PLAVIX 75 MG PO (08:08)
[2025-04-06] MEDS: DELTASONE 40 MG PO (08:09)
[2025-04-06] MEDS: FLUSH (NSS) 2 FLUSH IV (08:10)
[2025-04-06 09:03] LABS: % Basophils 0.1 % (0-2); % Eosinophils 0.5 % (0-6); % Immature Granulocytes 1.1 % (0-0.5); % Lymphocytes 7.3 % (20.5-51.1); % Monocytes 7.8 % (1.7-9.3); % Neutrophils 83.2 % (42.2-75.2); Absolute Eosinophils 0.1 10^3/uL (0-0.7); Absolute Immature Granulocytes 0.2 10^3/uL (0-0.05); Absolute Lymphocytes 1.1 10^3/uL (1.2-3.4); Absolute Monocytes 1.2 10^3/uL (0.1-0.6); Absolute Neutrophils 12.6 10^3/uL (1.4-6.5); Hematocrit 26.3 % (39.0-52.0); Hemoglobin 8.2 g/dL (13.0-18.0); Mean Corp Hgb Conc. 31.2 g/dL (33.0-37.0); Mean Corpuscular Hgb 24.6 pg (27.0-31.0); Mean Corpuscular Volume 78.7 fL (80.0-94.0); Mean Platelet Volume 10.9 fL (7.4-10.4); Nucleated Red Blood Cells % 0 % (-); Platelet Count 172 10^3/uL (130-400); Red Blood Cell Count 3.34 10^6/uL (4.70-6.10); White Blood Cell Count 15.2 10^3/uL (4.8-10.8)
[2025-04-06 10:31] LABS: Blood Urea Nitrogen 43 mg/dl (9-20); Carbon Dioxide 26 mmol/L (22-30); Chloride 107 mmol/L (98-107); Estimated Creatinine Clearance 35 ml/min; Glucose 201 mg/dl (70-99); Potassium 4.4 mmol/L (3.5-5.1); Sodium 140 mmol/L (135-145); eGFR 42.22
[2025-04-06 11:01] VITALS: BP 126/54
--- NOTE | 2025-04-06 11:15 | WOUNDNOTE ---
BILATERAL LOWER EXTREMITIES
--- NOTE | 2025-04-06 11:17 | WOUNDNOTE ---
BILATERAL LOWER EXTREMITIES(POSTERIOR)
--- NOTE | 2025-04-06 11:18 | WOUNDNOTE ---
LEFT ACHILLES/HEEL
--- NOTE | 2025-04-06 11:18 | WOUNDNOTE ---
[facility] RN note: Patient admitted with SOB
See H&P for complete history.
PMH: COPD, ex-smoker, CHF, CAD, HTN, diabetes, Cirrhosis, pancreatitis, ETOH, anxiety/depression.
Wound Location and type/assessment: Patient admitted with stage 1 PI to sacral/coccyx, left arm skin tear, scabbed areas to left heel and right knee. Patient is a good historian and demonstrated ability to turn in bed.
Appetite: Fair
Pressure redistribution devices in place: Versa Care with Accumax,keep heels off-loaded with pillow or air cushion under calves when in bed.
Plan: Sacral foam applied to sacral stage 1 wound. Encouraged frequent turning/repositioning when in bed. Local wound care provided to left arm. Will confirm orders with hospitalist and update nurse.
Updated care plan and will follow as needed.
Note to case management of equipment requested for discharge:
Recommend follow up at wound care center upon discharge.
[2025-04-06 11:31] LABS: Glucose - Point of Care 160 mg/dl (70-99)
--- NOTE | 2025-04-06 12:10 | W.PN.HOSP.TC ---
Addendum entered and electronically signed by Armen Del Toro DO 04/07/25 12:38:
CDI: Stage I decubitus ulcer, MEDICAL OFFICE REP
Original Note:
Today's Communication/Plan
-
Continue IV diuresis
Start IV iron per ferric HF
Continue prednisone at 40 mg
Stop cefazolin
Trend BMP
Assessment / Plan
Assessment / Plan
#Acute on Chronic HFpEF
# s/p TAVR
#Moderate mitral stenosis
-Unclear cause for his valvular abnormalities, question rheumatism with mitral and aortic stenosis
-Echocardiogram here showed preserved LVEF, moderate mitral stenosis, previous TAVR
-Home regimen for chronic HFpEF included SGLT2i, torsemide/metolazone, beta-jacy
-Per history his metolazone ultimately had to be held due to acute kidney injury
-Presented here with significant edema and symptoms, placed onto IV Lasix 40 ->80 BID
-Warm and wet phenotype, improving but still significant edema
Plan
-Continue with IV Lasix 80 BID; I/O + BMP + weights
-Continue with SGLT2 inhibitor for GDMT, as well as beta-jacy
-Check iron studies and start IV iron if sat <20% per ferric-HF
-Continue on telemetry
-SpO2 goal 88 to 94%
#FAHEEM on CKD III
-Secondary to cardiorenal syndrome, creatinine slowly improving with IV diuresis
-Baseline creatinine near 1.4; presented with creatinine 2.3, down to 1.6 today
-Continue with IV diuretics and trend BMP
-Monitor I's/O's and weights
#Migratory Polyarthritis
-History sounds more c/w pseudogout given multiple joints involved, etc.
-Cellulitis seems less like based on migratory nature of symptoms.
-Was started on prednisone and IV antibiotics, has had some improvement
-Continue prednisone and antibiotics for now, low threshold to DC antibiotic
-Plan for 5 to 7-day course of escalated steroid dose
#CAD s/p PCI x 2 to LAD
-Home medications include high intensity statin, Plavix, beta-jacy
-No history of systolic dysfunction
-Low suspicion for ACS
#Paroxysmal Atrial Fibrillation
#Heart Block s/p PPM
-Home regimen includes beta-jacy and reduced dose Eliquis
-Heart rate here has been WNL
#Benign Hypertension
-Home regimen includes amlodipine, beta-jacy, loop diuretic, doxazosin
-Stable, continue current meds and adjust as needed.
-Holding parameters to avoid hypotension / allow effective diuresis.
#NIDDM
-Stable, A1c 6.8%. Hold sulfonylurea. Continue Jardiance
-No known history of microvascular disease complication
-Follow glucose and cover with SSI as needed.
#COPD/ILD
#IMANI
#Chronic Hypoxemic Respiratory Insufficiency
-Home regimen includes DuoNebs, prednisone 10 mg daily, azithromycin 250 mg nightly
-Patient uses supplemental oxygen as needed
-Stable, continue usual neb regimen / inhaled medications.
#Hypothyroidism
-Unclear etiology, home regimen includes levothyroxine 175 mcg daily
-No signs or symptoms of abnormal thyroid function here
#Exocrine Pancreatic Insufficiency
-Unclear etiology, home regimen includes Creon with no
-Stable. Continue Creon AC
#Anemia of Chronic Disease
-Hgb slightly decreased from usual baseline, no reported bleeding issues.
-Check iron studies as above
-Trend CBC
Diet: Carb controlled, sodium and fluid restricted
DVT Prophylaxis: On Eliquis
Code Status: DNR
Anticipated Discharge: > 48 hours
Subjective/Interval History
-
Date of Service: April 06, 2025
Seen and examined at the bedside. No acute events reported overnight. AFVSS on 2 L O2
Patient states his breathing is getting better though states he still has some significant edema. Pain in his hands and arm are improved since starting steroid
Renal function improving slowly with IV diuretic. Labs otherwise stable. He denies any new complaints
Objective Data
-
Labs:
Laboratory Results
04/06/25 04/06/25
08:31 09:32
WBC 15.2 H
Hgb 8.2 L
Hct 26.3 L
Plt Count 172 D
Sodium Cancelled 140
Potassium Cancelled 4.4
Chloride Cancelled 107
Carbon Dioxide Cancelled 26
BUN Cancelled 43 H
Creatinine Cancelled 1.6 H
Glucose Cancelled 201 H
Calcium Cancelled 8.0 L
Vital Signs:
Vital Signs
Temp Pulse Resp BP Pulse Ox
97.9 F 76 16 126/54 96
04/06/25 11:01 04/06/25 11:01 04/06/25 11:01 04/06/25 11:01 04/06/25 11:01
I&O
04/05/25 04/06/25 04/07/25
06:59 06:59 06:59
Intake Total 480 / 480
Output Total 750 / 750 905 / 905
Balance -750 / -750 -425 / -425
Review of Systems
-
History Source: Patient
All other systems: Reviewed and negative
Physical Exam
-
General: Well Developed, Well Nourished, No Apparent Distress and Comfortable
HEENT: Normocephalic, Atraumatic, Moist Mucous Membranes, Anicteric and Oxygen
Respiratory: Rales, Non Labored Respirations and Decreased Breath Sounds (bibasilar); Negative Wheezes, Rhonchi or Accessory Resp Muscle Use
Cardiac: Regular Rhythm, S1/S2, Murmur (diastolic rumble) and Other (2-3+ lower extremity edema); Negative Rub, JVD or Gallop
GI: Soft, Nontender, Nondistended and Normal Bowel Sounds
Musculoskeletal: No Clubbing, No Cyanosis, No Edema and Other (Improving tenderness to joints of the right hand and arm)
Skin: Warm, Dry and Normal Turgor; Negative Rash
Neuro: AO x 3 and Nonfocal/Grossly Intact; Negative Tremors
Psych: Calm
Data Reviewed
-
Labs: Labs Reviewed by me and Discussed with Patient
[2025-04-06 13:13] LABS: Iron 30 ug/dl (49-181)
[2025-04-06 13:24] LABS: Percent Saturation 11 % (20-50); Total Iron Binding Capacity 262 ug/dl (261-462)
[2025-04-06] MEDS: FERRLECIT 110 MG IV (13:39)
--- NOTE | 2025-04-06 13:47 | W.PN.CARDCBS ---
Addendum entered and electronically signed by Antonino Leung MD 04/06/25 15:53:
I saw and examined the patient.
The Coach Cleaner's note was reviewed and I agree with the note.
Comment:
GEN: No distress, awake, Ox3
HEENT: supple, anicteric, mmm
LUNGS: CTA, no wheezes/rales
CV: Reg, S1/S2, 1/6 syst LSB, S3+
ABD: soft, BS+, NT/ND
EXT: +1 edema
NEURO: Gross non-focal
SKIN: No rash
Plan:
Is improving but still volume overloaded. Would continue IV Lasix. Creatinine improved and now 1.6.
Echo with preserved EF and increased mitral gradients. Transcatheter aortic valve has moderate bioprosthetic stenosis as well.
Continue amiodarone and Eliquis.
Continue medical therapy for CAD.
Original Note:
Today's Communication / Plan
-
continue IV lasix
wean supp O2
Impression / Plan
-
Primary Director Safety Council: Dr. Deana Palomino
Assessment:
Presentation with SOB
Anasarca
FAHEEM on CKD
Concern for RUE cellulitis
Chronic HFpEF
Paroxysmal atrial fibrillation
Chronic Eliquis anticoagulation
CAD
s/p BLADIMIR to mid LAD 01/13/2020
s/p BLADIMIR to prox LAD 06/21/2024
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
MS/MR, mild to mod by echo 2023
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
COPD
Carotid stenosis
Hypertension
Hyperlipidemia
Hypothyroidism
Type 2 DM
Renal insufficiency
Frequent PVCs, NSVT
DNR code status
Echo 06/18/2024: EF 50 to 55%, stage II diastolic dysfunction, mild to moderate MS with peak/mean gradient 16/8 mmHg, moderate MR, severely dilated left atrium, status post number 26 mm TAVR with peak/mean gradients of 25/17 mmHg, trace AR, trace TR,
PAP 30 mmHg
ECHO 04/05/2025: EF 60 to 65%, no regional wall motion abnormalities noted, mild concentric LVH, moderate to severe MS with peak/mean gradients 26/13 mmHg, Fleming ROSARIO #26 TAVR with peak/mean gradients 37/22 mmHg, trace TR, PAP 50 to 55 mmHg
Plan:
-Patient presents with SOB and anasarca after OP metolazone was held over the last 1.5 weeks.
-continue IV lasix diuresis. weight down 5 pounds overnight if accurate. Cr improving, 1.6 on 04/06. as OP was on torsemide 30mg daily and 20mg HS with metolazone 2-3 times per week. dry weight previously felt to be ~185 pounds, will need to establish
new dry weight
-CHF education
-wean supp O2 as able
- Echo with results as above, reviewed with patient on 04/06
- Device interrogated 04/05 with less than 0.1% A-fib burden. In paced rhythm on review of telemetry, at times AV paced and at times a sensed V paced. continue amiodarone
-continue OP toprol. also remains on OP farxiga. not felt to be candidate for stanley/arb given chronic renal insufficiency and relative hypotension.
-continued on OP cardura. OP norvasc presently on hold.
-continue plavix, eliquis given history of LAD PCI 05/2024. trops 0.014, 0.016. no CP reported
-abx for possible RUE cellulitis per primary service
-PT/OT
Progress Note - Director Safety Council
Subjective
Date of Service: April 06, 2025
Reports good urine output and improvement in upper extremity edema
Objective
Labs:
04/06/25 08:31
04/06/25 09:32
Labs
Hgb 8.2 g/dL (13.0-18.0) L 04/06/25 08:31
Hct 26.3 % (39.0-52.0) L 04/06/25 08:31
Plt Count 172 10^3/uL (130-400) D 04/06/25 08:31
Sodium 140 mmol/L (135-145) 04/06/25 09:32
Potassium 4.4 mmol/L (3.5-5.1) 04/06/25 09:32
BUN 43 mg/dl (9-20) H 04/06/25 09:32
Creatinine 1.6 mg/dL (0.7-1.3) H 04/06/25 09:32
Glucose 201 mg/dl (70-99) H 04/06/25 09:32
Troponins
04/05/25 04/05/25 04/05/25
01:04 06:31 10:47
Troponin I 0.015 0.016 < 0.012 D
04/05/25
17:45
Troponin I < 0.012
Vital Signs and I&O:
Vital Signs
Temp Pulse Resp BP Pulse Ox
97.9 F 76 16 126/54 96
04/06/25 11:01 04/06/25 11:01 04/06/25 11:01 04/06/25 11:01 04/06/25 11:01
Vital Signs
Temp Pulse Resp BP Pulse Ox
97.9 F 76 16 126/54 96
04/06/25 11:01 04/06/25 11:01 04/06/25 11:01 04/06/25 11:01 04/06/25 11:01
Intake & Output
04/04/25 04/05/25 04/06/25 04/07/25
07:59 07:59 07:59 07:59
Intake Total 480 / 480
Output Total 750 / 750 905 / 905
Balance -750 / -750 -425 / -425
Physical Exam
Physical Exam
GEN: No distress, awake, alert, oriented x3. on supp O2
HEENT: supple, anicteric, mmm, eomi
LUNGS: CTA B/L, no wheezes/rales
CV: Reg, S1/S2, 2/6 murmur
ABD: soft, BS+, NT/ND
EXT: No cyanosis, clubbing. 2+ edema of B/L LE and UE
NEURO: Gross non-focal
SKIN: Warm, pink, dry. No rash
[2025-04-06 13:49] LABS: Ferritin 57.4 ng/ml (17.9-464.0)
[2025-04-06 15:47] VITALS: BP 125/51
[2025-04-06 16:43] LABS: Glucose - Point of Care 229 mg/dl (70-99)
[2025-04-06] MEDS: NOVOLOG FLEXPEN-MODERATE RESISTANCE 3 UNITS SC (17:20)
[2025-04-06] MEDS: PROTONIX 40 MG PO (17:21)
[2025-04-06] MEDS: ZITHROMAX 250 MG PO (17:21)
[2025-04-06] MEDS: PACERONE 200 MG PO (17:21)
[2025-04-06 19:41] VITALS: BP 144/50
[2025-04-06 21:41] LABS: Glucose - Point of Care 226 mg/dl (70-99)
[2025-04-06] MEDS: ZOLOFT 50 MG PO (21:56)
[2025-04-06] MEDS: LIPITOR 40 MG PO (21:56)
[2025-04-06] MEDS: ARICEPT 10 MG PO (21:56)
[2025-04-06] MEDS: CARDURA 3 MG PO (21:56)
[2025-04-06 23:30] VITALS: BP 124/58
[2025-04-07 03:30] VITALS: BP 137/55
[2025-04-07] MEDS: TYLENOL 650 MG PO ×2 (03:49→09:15)
[2025-04-07] MEDS: SYNTHROID 175 MCG PO (05:57)
[2025-04-07 06:00] VITALS: BMI 26.7
[2025-04-07] MEDS: PULMICORT INH (07:27)
[2025-04-07 07:40] VITALS: BP 131/55
[2025-04-07 08:05] LABS: Glucose - Point of Care 105 mg/dl (70-99)
[2025-04-07 08:16] LABS: % Basophils 0.2 % (0-2); % Eosinophils 0.4 % (0-6); % Immature Granulocytes 1.7 % (0-0.5); % Lymphocytes 7.8 % (20.5-51.1); % Monocytes 7.5 % (1.7-9.3); % Neutrophils 82.4 % (42.2-75.2); Absolute Eosinophils 0.1 10^3/uL (0-0.7); Absolute Immature Granulocytes 0.3 10^3/uL (0-0.05); Absolute Lymphocytes 1.3 10^3/uL (1.2-3.4); Absolute Monocytes 1.2 10^3/uL (0.1-0.6); Absolute Neutrophils 13.6 10^3/uL (1.4-6.5); Hematocrit 27.6 % (39.0-52.0); Hemoglobin 8.6 g/dL (13.0-18.0); Mean Corp Hgb Conc. 31.2 g/dL (33.0-37.0); Mean Corpuscular Hgb 25.2 pg (27.0-31.0); Mean Corpuscular Volume 80.9 fL (80.0-94.0); Mean Platelet Volume 10.4 fL (7.4-10.4); Nucleated Red Blood Cells % 0 % (-); Platelet Count 236 10^3/uL (130-400); Red Blood Cell Count 3.41 10^6/uL (4.70-6.10); Red Cell Dist. Width 19.1 % (11.5-14.5); White Blood Cell Count 16.5 10^3/uL (4.8-10.8)
[2025-04-07 08:33] LABS: Blood Urea Nitrogen 42 mg/dl (9-20); Calcium 8.1 mg/dl (8.4-10.2); Carbon Dioxide 26 mmol/L (22-30); Chloride 108 mmol/L (98-107); Estimated Creatinine Clearance 33 ml/min; Glucose 91 mg/dl (70-99); Magnesium 2.3 mg/dl (1.6-2.3); Potassium 4.2 mmol/L (3.5-5.1); Sodium 143 mmol/L (135-145); eGFR 39.26
[2025-04-07] MEDS: NOVOLOG FLEXPEN-MODERATE RESISTANCE SC (08:34)
[2025-04-07] MEDS: DELTASONE 40 MG PO (08:35)
[2025-04-07] MEDS: ZENPEP DELAYED RELEASE CAPSULE 2 CAPSULE PO ×3 (08:35→16:54)
[2025-04-07] MEDS: MUCINEX 600 MG PO ×2 (08:35→20:31)
[2025-04-07] MEDS: FARXIGA 10 MG PO (08:35)
[2025-04-07] MEDS: TOPROL XL 25 MG PO ×2 (08:36→20:32)
[2025-04-07] MEDS: LASIX 80 MG IV ×2 (08:36→15:38)
[2025-04-07] MEDS: PLAVIX 75 MG PO (08:36)
[2025-04-07] MEDS: ELIQUIS 2.5 MG PO ×2 (08:36→20:31)
[2025-04-07 09:01] LABS: Albumin 2.7 g/dl (3.5-5.0)
[2025-04-07 09:13] LABS: Uric Acid 12.5 mg/dl (3.5-8.5)
--- NOTE | 2025-04-07 10:15 | PN.CDI ---
CDI
- -
CDI:
Physician Documentation Request
Admit Date: 04/05/25 04:35
Dear Doctor Alverto,
Please review the following and provide your response in the progress notes.
Clinical Indicators:
Pt admitted with Acute on Chronic HFpEF /FAHEEM on CKD 3
Documented per [facility] note 04/06 1118, ' Patient admitted with stage 1 PI to sacral/coccyx...Sacral foam applied to sacral stage 1 wound.....'
Physician documentation of the type and location of wounds is required for compliant documentation. Based on the above clinical findings and your assessment, please provide the following in your progress note:
1. Location of the ulcer/wound, including laterality.
2. Type (etiology) of ulcer/wound:
- Pressure (decubitus) ulcer
- Non-pressure ulcer
- Other
Use of terms such as suspected, likely, concern for, or probable (associated with a specific diagnosis that is being evaluated, monitored, or treated as if it exists) are acceptable and can be coded in the inpatient setting, when documented at the
time of discharge.
Thank you,
Bria Hernandez RN
CDI Specialist
[employer]
Please use your independent medical judgment in providing your response.
*Source: National Pressure Ulcer Advisory Panel (NPUAP)
[2025-04-07 10:57] LABS: Glucose - Point of Care 158 mg/dl (70-99)
[2025-04-07] MEDS: NOVOLOG FLEXPEN-MODERATE RESISTANCE 1 UNITS SC ×2 (11:25→16:54)
[2025-04-07 11:27] VITALS: BP 122/52
--- NOTE | 2025-04-07 12:09 | W.PN.HOSP.TC ---
Today's Communication/Plan
-
Continue IV diuretics for now
Suspect he is a close to intravascular euvolemia
Can consider RHC if cardiology thinks necessary
Continue prednisone for likely gout
Supportive measures for LE edema
Wean O2
Assessment / Plan
Assessment / Plan
#Acute on Chronic HFpEF
# s/p TAVR with moderate bioprosthetic stenosis
#Moderate mitral stenosis
-Unclear cause for his valvular abnormalities, question rheumatism with mitral and aortic stenosis
-Home regimen for chronic HFpEF included SGLT2i, torsemide/metolazone, beta-jacy
-Per history his metolazone ultimately had to be held due to acute kidney injury
-Has been on IV diuresis with 80 mg Lasix twice daily, creatinine plateauing
-Iron saturation low level <20%, was started on IV iron for 5 days
-Albumin 2.7, question if residual edema is mostly third spacing
-Warm and wet phenotype, improving but still significant edema
Plan
-Continue with IV Lasix 80 BID; I/O + BMP + weights
-Continue with SGLT2 inhibitor for GDMT, as well as beta-jacy
-Continue IV iron per ferric HF trial
-Continue on telemetry
-SpO2 goal 88 to 94%
-Consider RHC
#FAHEEM on CKD III
-Secondary to cardiorenal syndrome, creatinine slowly improving with IV diuresis
-Baseline creatinine near 1.4; presented with creatinine 2.3, down to 1.7 today
-Continue with IV diuretics and trend BMP
-Monitor I's/O's and weights
#Migratory Polyarthritis
-Differentials include gout (in context of IV diuretics and high uric acid) versus CPPD (due to joint distribution)
-Was treated with IV antibiotics initially due to concerns for cellulitis, discontinued on 04/06
-Was started on prednisone and IV antibiotics, has had some improvement
-Continue prednisone and monitor
-Plan for allopurinol 2 weeks after resolution
#CAD s/p PCI x 2 to LAD
-Home medications include high intensity statin, Plavix, beta-jacy
-No history of systolic dysfunction
-Low suspicion for ACS
#Paroxysmal Atrial Fibrillation
#Heart Block s/p PPM
-Home regimen includes beta-jacy and reduced dose Eliquis
-Heart rate here has been WNL
#Benign Hypertension
-Home regimen includes amlodipine, beta-jacy, loop diuretic, doxazosin
-Stable, continue current meds and adjust as needed.
-Holding parameters to avoid hypotension / allow effective diuresis.
#NIDDM
-Stable, A1c 6.8%. Hold sulfonylurea. Continue Jardiance
-No known history of microvascular disease complication
-Follow glucose and cover with SSI as needed.
#COPD/ILD
#IMANI
#Chronic Hypoxemic Respiratory Insufficiency
-Home regimen includes DuoNebs, prednisone 10 mg daily, azithromycin 250 mg nightly
-Patient uses supplemental oxygen as needed
-Stable, continue usual neb regimen / inhaled medications.
#Hypothyroidism
-Unclear etiology, home regimen includes levothyroxine 175 mcg daily
-No signs or symptoms of abnormal thyroid function here
#Exocrine Pancreatic Insufficiency
-Unclear etiology, home regimen includes Creon with no
-Stable. Continue Creon AC
#Anemia of Chronic Disease
-Hgb slightly decreased from usual baseline, no reported bleeding issues.
-Check iron studies as above
-Trend CBC
Diet: Carb controlled, sodium and fluid restricted
DVT Prophylaxis: Eliquis
Code Status: DNR
Anticipated Discharge: > 48 hours
Subjective/Interval History
-
Date of Service: April 07, 2025
Seen and examined at the bedside. No acute events reported overnight. AFVSS on 2 L O2 with SpO2 99%
I/Os net positive and weights slightly increased today. Creatinine 1.6- 1.7 over the last 2 lab draws. Albumin 2.7
Objective Data
-
Labs:
Laboratory Results
04/07/25
07:25
WBC 16.5 H
Hgb 8.6 L
Hct 27.6 L
Plt Count 236 D
Sodium 143
Potassium 4.2
Chloride 108 H
Carbon Dioxide 26
BUN 42 H
Creatinine 1.7 H
Glucose 91
Calcium 8.1 L
Vital Signs:
Vital Signs
Temp Pulse Resp BP Pulse Ox
97.8 F 66 14 122/52 100
04/07/25 11:27 04/07/25 11:27 04/07/25 11:27 04/07/25 11:27 04/07/25 11:27
I&O
04/06/25 04/07/25 04/08/25
06:59 06:59 06:59
Intake Total 480 / 480 1140 / 1140
Output Total 905 / 905 925 / 925
Balance -425 / -425 215 / 215
Review of Systems
-
History Source: Patient
All other systems: Reviewed and negative
Physical Exam
-
General: Well Developed, Well Nourished, No Apparent Distress and Comfortable
HEENT: Normocephalic, Atraumatic, Moist Mucous Membranes and Anicteric
Respiratory: Clear to Auscultation and Non Labored Respirations; Negative Accessory Resp Muscle Use
Cardiac: Regular Rhythm, S1/S2, Murmur and Other (2+ pitting edema to bilateral LEs); Negative Rub, JVD or Gallop
GI: Soft, Nontender, Nondistended and Normal Bowel Sounds
Musculoskeletal: No Clubbing, No Cyanosis and Other (Mild tenderness to right hand with improving swelling)
Skin: Warm, Dry and Normal Turgor; Negative Rash
Neuro: AO x 3 and Nonfocal/Grossly Intact
Psych: Calm
Data Reviewed
-
Labs: Labs Reviewed by me and Discussed with Patient
[2025-04-07] MEDS: FERRLECIT 110 MG IV (13:11)
[2025-04-07 15:28] VITALS: BP 119/47
--- NOTE | 2025-04-07 15:33 | W.PN.CARDCBS ---
Addendum entered and electronically signed by Partha Oconnell MD 04/07/25 16:24:
Patient seen and examined
Agree with BHAVNA Hendricks's note and assessment
Agree with BHAVNA Hendricks's plan
Weight superior improved over hospitalization although plateauing over the last 24 hours. I's and O's do not appear to be accurate
����Physical Exam
���������������������General:��no apparent distress, not acutely ill
���������������������������Neck:��supple. no meningeal signs. normal psoterior pharynx
������������������������
���������������������������Heart:��s1/s2 regular rate and rhythm, no murmur. equal radial pulses.
��������������������������Lungs: ��no acute respiratory distress. clear bilaterally
����������������������Abdomen:�normal bowel sounds. not tender. no CVAT
��������������������������Neuro:��alert and oriented. no focal neurological deficits
������������������������������Skin: ��no rash
�����������������������Psychiatric:�well kept. interactive and cooperative
�����������������������Extremities:��no edema. no calf tenderness. negative homans. good distal pulse
Assessment:
Presentation with SOB
Anasarca
FAHEEM on CKD
Concern for RUE cellulitis
Chronic HFpEF
Paroxysmal atrial fibrillation
Chronic Eliquis anticoagulation
CAD
s/p BLADIMIR to mid LAD 01/13/2020
s/p BLADIMIR to prox LAD 06/21/2024s/p TAVR 26 mm Fleming Valve 05/11/2020
MS/MR, mild to mod by echo 2023
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
COPD
Carotid stenosis
Hypertension
Hyperlipidemia
Hypothyroidism
Type 2 DM
Renal insufficiency
Frequent PVCs, NSVT
DNR code status
Echo 06/18/2024: EF 50 to 55%, stage II diastolic dysfunction, mild to moderate MS with peak/mean gradient 16/8 mmHg, moderate MR, severely dilated left atrium, status post number 26 mm TAVR with peak/mean gradients of 25/17 mmHg, trace AR, trace TR,
PAP 30 mmHg
ECHO 04/05/2025: EF 60 to 65%, no regional wall motion abnormalities noted, mild concentric LVH, moderate to severe MS with peak/mean gradients 26/13 mmHg, Fleming ROSARIO #26 TAVR with peak/mean gradients 37/22 mmHg, trace TR, PAP 50 to 55 mmHg
Plan:
-Patient presents with SOB and anasarca after OP metolazone was held over the last 1.5 weeks.
- Previous dry weight felt to be 185 pounds and will likely need to establish new dry weight. Would consider metolazone Friday, April 08 if his weights are stable but is still dyspneic
-Echo with results as above, EF preserved but with mod to severe MS which from a mitral stenosis standpoint is increased compared to prior echocardiogram
-CHF education
-wean supp O2 as able
-Device interrogated 04/05 with less than 0.1% A-fib burden. In paced rhythm on review of telemetry, at times AV paced and at times a sensed V paced. continue amiodarone
-continue OP olivia kasper cardura. not felt to be candidate for stanley/arb given chronic renal insufficiency and relative hypotension. OP norvasc presently on hold.
-continue plavix, eliquis given history of LAD PCI 05/2024. no CP reported
-PT/OT
- Anticipate discharge in next 24 to 48 hours
Original Note:
Today's Communication / Plan
-
continue IV lasix, consider addition of zaroxolyn 2.5mg in AM if without good response to IV lasix
wean supp O2
Impression / Plan
-
Primary Sales And Marketing Executive: Dr. Deana Palomino
Assessment:
Presentation with SOB
Anasarca
FAHEEM on CKD
Concern for RUE cellulitis
Chronic HFpEF
Paroxysmal atrial fibrillation
Chronic Eliquis anticoagulation
CAD
s/p BLADIMIR to mid LAD 01/13/2020
s/p BLADIMIR to prox LAD 06/21/2024
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
MS/MR, mild to mod by echo 2023
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
COPD
Carotid stenosis
Hypertension
Hyperlipidemia
Hypothyroidism
Type 2 DM
Renal insufficiency
Frequent PVCs, NSVT
DNR code status
Echo 06/18/2024: EF 50 to 55%, stage II diastolic dysfunction, mild to moderate MS with peak/mean gradient 16/8 mmHg, moderate MR, severely dilated left atrium, status post number 26 mm TAVR with peak/mean gradients of 25/17 mmHg, trace AR, trace TR,
PAP 30 mmHg
ECHO 04/05/2025: EF 60 to 65%, no regional wall motion abnormalities noted, mild concentric LVH, moderate to severe MS with peak/mean gradients 26/13 mmHg, Fleming ROSARIO #26 TAVR with peak/mean gradients 37/22 mmHg, trace TR, PAP 50 to 55 mmHg
Plan:
-Patient presents with SOB and anasarca after OP metolazone was held over the last 1.5 weeks.
-Unclear if weights accurate overnight, if so patient up 2 pounds? Creatinine stable at 1.7. was on torsemide 30mg daily and 20mg HS with metolazone 2-3 times per week prior to admission. may consider addition of zaroxolyn in AM if without vigorous
response to IV lasix. dry weight previously felt to be ~185 pounds, will need to establish new dry weight
-Echo with results as above, EF preserved but with mod to severe MS
-CHF education
-wean supp O2 as able
-Device interrogated 04/05 with less than 0.1% A-fib burden. In paced rhythm on review of telemetry, at times AV paced and at times a sensed V paced. continue amiodarone
-continue OP olivia kasper cardura. not felt to be candidate for stanley/arb given chronic renal insufficiency and relative hypotension. OP norvasc presently on hold.
-continue plavix, eliquis given history of LAD PCI 05/2024. no CP reported
-PT/OT
Progress Note - Sales And Marketing Executive
Subjective
Date of Service: April 07, 2025
no issues overnight noted
Objective
Labs:
04/07/25 07:25
04/07/25 07:25
Labs
Hgb 8.6 g/dL (13.0-18.0) L 04/07/25 07:25
Hct 27.6 % (39.0-52.0) L 04/07/25 07:25
Plt Count 236 10^3/uL (130-400) D 04/07/25 07:25
Sodium 143 mmol/L (135-145) 04/07/25 07:
Potassium 4.2 mmol/L (3.5-5.1) 04/07/25 07:25
BUN 42 mg/dl (9-20) H 04/07/25 07:25
Creatinine 1.7 mg/dL (0.7-1.3) H 04/07/25 07:25
Glucose 91 mg/dl (70-99) 04/07/25 07:25
Troponins
04/05/25 04/05/25 04/05/25
01:04 06:31 10:47
Troponin I 0.015 0.016 < 0.012 D
04/05/25
17:45
Troponin I < 0.012
Vital Signs and I&O:
Vital Signs
Temp Pulse Resp BP Pulse Ox
98.5 F 77 16 119/47 99
04/07/25 15:28 04/07/25 15:28 04/07/25 15:28 04/07/25 15:28 04/07/25 15:28
Vital Signs
Temp Pulse Resp BP Pulse Ox
98.5 F 77 16 119/47 99
04/07/25 15:28 04/07/25 15:28 04/07/25 15:28 04/07/25 15:28 04/07/25 15:28
Intake & Output
04/05/25 04/06/25 04/07/25 04/08/25
07:59 07:59 07:59 07:59
Intake Total 480 / 480 1140 / 1140
Output Total 750 / 750 905 / 905 925 / 925
Balance -750 / -750 -425 / -425 215 / 215
[2025-04-07 15:52] VITALS: PULSE 76; O2SAT 99
[2025-04-07 16:30] LABS: Glucose - Point of Care 186 mg/dl (70-99)
[2025-04-07] MEDS: DUONEB 3 ML INH ×2 (16:46→19:31)
[2025-04-07] MEDS: PULMICORT 0.5 MG INH (16:46)
[2025-04-07] MEDS: ZITHROMAX 250 MG PO (17:00)
[2025-04-07] MEDS: PACERONE 200 MG PO (17:00)
[2025-04-07] MEDS: PROTONIX 40 MG PO (17:01)
[2025-04-07] MEDS: TYLENOL 1000 MG PO (18:26)
[2025-04-07 20:25] VITALS: BP 127/48
[2025-04-07 21:36] LABS: Glucose - Point of Care 298 mg/dl (70-99)
[2025-04-07] MEDS: CARDURA 3 MG PO (22:43)
[2025-04-07] MEDS: LIPITOR 40 MG PO (22:43)
[2025-04-07] MEDS: ZOLOFT 50 MG PO (22:43)
[2025-04-07] MEDS: ARICEPT 10 MG PO (22:44)
[2025-04-08] MEDS: TYLENOL 1000 MG PO ×3 (02:31→20:57)
[2025-04-08 04:11] VITALS: BP 124/50
[2025-04-08 04:14] VITALS: BP 124/50
[2025-04-08] MEDS: SYNTHROID 175 MCG PO (05:51)
[2025-04-08 06:00] VITALS: BMI 27.3
[2025-04-08 07:29] VITALS: BMI 26.5
[2025-04-08 07:30] VITALS: BP 130/46
[2025-04-08 07:35] LABS: Glucose - Point of Care 123 mg/dl (70-99)
[2025-04-08] MEDS: NOVOLOG FLEXPEN-MODERATE RESISTANCE SC (07:36)
[2025-04-08] MEDS: ELIQUIS 2.5 MG PO ×2 (07:36→20:51)
[2025-04-08] MEDS: ZENPEP DELAYED RELEASE CAPSULE 2 CAPSULE PO ×3 (07:36→16:10)
[2025-04-08] MEDS: DELTASONE 40 MG PO (07:36)
[2025-04-08] MEDS: LASIX 80 MG IV ×2 (07:37→16:11)
[2025-04-08] MEDS: MUCINEX 600 MG PO ×2 (07:37→20:51)
[2025-04-08] MEDS: PLAVIX 75 MG PO (07:37)
[2025-04-08] MEDS: FARXIGA 10 MG PO (07:37)
[2025-04-08] MEDS: TOPROL XL 25 MG PO ×2 (07:37→20:51)
[2025-04-08] MEDS: DUONEB 3 ML INH ×2 (07:39→18:06)
[2025-04-08] MEDS: PULMICORT INH ×2 (07:43→18:06)
[2025-04-08 08:02] LABS: % Basophils 0.1 % (0-2); % Eosinophils 0.2 % (0-6); % Immature Granulocytes 2.2 % (0-0.5); % Lymphocytes 7.8 % (20.5-51.1); % Monocytes 7.5 % (1.7-9.3); % Neutrophils 82.2 % (42.2-75.2); Absolute Immature Granulocytes 0.4 10^3/uL (0-0.05); Absolute Lymphocytes 1.3 10^3/uL (1.2-3.4); Absolute Monocytes 1.2 10^3/uL (0.1-0.6); Absolute Neutrophils 13.2 10^3/uL (1.4-6.5); Hematocrit 26.9 % (39.0-52.0); Hemoglobin 8.2 g/dL (13.0-18.0); Mean Corp Hgb Conc. 30.5 g/dL (33.0-37.0); Mean Corpuscular Hgb 24.6 pg (27.0-31.0); Mean Corpuscular Volume 80.8 fL (80.0-94.0); Mean Platelet Volume 10.4 fL (7.4-10.4); Nucleated Red Blood Cells % 0 % (-); Platelet Count 234 10^3/uL (130-400); Red Blood Cell Count 3.33 10^6/uL (4.70-6.10); Red Cell Dist. Width 19.3 % (11.5-14.5); White Blood Cell Count 16.1 10^3/uL (4.8-10.8)
[2025-04-08 08:31] LABS: Blood Urea Nitrogen 44 mg/dl (9-20); Calcium 8.1 mg/dl (8.4-10.2); Carbon Dioxide 27 mmol/L (22-30); Chloride 107 mmol/L (98-107); Estimated Creatinine Clearance 38 ml/min; Glucose 96 mg/dl (70-99); Potassium 4.6 mmol/L (3.5-5.1); Sodium 141 mmol/L (135-145); eGFR 45.62
[2025-04-08 11:16] VITALS: BP 127/57
[2025-04-08 11:48] LABS: Glucose - Point of Care 172 mg/dl (70-99)
[2025-04-08] MEDS: NOVOLOG FLEXPEN-MODERATE RESISTANCE 1 UNITS SC (12:14)
--- NOTE | 2025-04-08 12:14 | W.PN.HOSP.TC ---
Today's Communication/Plan
-
Continue IV diuresis
Start colchicine
Continue prednisone
Trend BMP and weights
Assessment / Plan
Assessment / Plan
#Acute on Chronic HFpEF
# s/p TAVR with moderate bioprosthetic stenosis
#Moderate mitral stenosis
-Unclear cause for his valvular abnormalities, question rheumatism with mitral and aortic stenosis
-Home regimen for chronic HFpEF included SGLT2i, torsemide/metolazone, beta-jacy
-Per history his metolazone ultimately had to be held due to acute kidney injury
-Has been on IV diuresis with 80 mg Lasix twice daily, creatinine plateauing
-Iron saturation low level <20%, was started on IV iron for 5 days
-Albumin 2.7, question if residual edema is mostly third spacing
-Warm and wet phenotype, on baseline O2
Plan
-Continue with IV Lasix 80 BID; I/O + BMP + weights
-Continue with SGLT2 inhibitor for GDMT, as well as beta-jacy
-Continue IV iron per ferric HF trial
-Continue on telemetry
-SpO2 goal 88 to 94%
-Cards to consider metolazone dose
#FAHEEM on CKD III
-Secondary to cardiorenal syndrome, creatinine slowly improving with IV diuresis
-Baseline creatinine near 1.4; presented with creatinine 2.3, down to 1.7 today
-Continue with IV diuretics and trend BMP
-Monitor I's/O's and weights
#Migratory Polyarthritis
-Differentials include gout (in context of IV diuretics and high uric acid) versus CPPD (due to joint distribution)
-Was treated with IV antibiotics initially due to concerns for cellulitis, discontinued on 04/06
-Was started on prednisone and IV antibiotics, no culture seen initially due to FAHEEM
-Continue prednisone, start colchicine now that renal function improved
-Plan for allopurinol 2 weeks after resolution
-Expect improvement when off IV diuretic
#CAD s/p PCI x 2 to LAD
-Home medications include high intensity statin, Plavix, beta-jacy
-No history of systolic dysfunction
-Low suspicion for ACS
#Paroxysmal Atrial Fibrillation
#Heart Block s/p PPM
-Home regimen includes beta-jacy and reduced dose Eliquis
-Heart rate here has been WNL
#Benign Hypertension
-Home regimen includes amlodipine, beta-jacy, loop diuretic, doxazosin
-Stable, continue current meds and adjust as needed.
-Holding parameters to avoid hypotension / allow effective diuresis.
#NIDDM
-Stable, A1c 6.8%. Hold sulfonylurea. Continue Jardiance
-No known history of microvascular disease complication
-Follow glucose and cover with SSI as needed.
#COPD/ILD
#IMANI
#Chronic Hypoxemic Respiratory Insufficiency
-Home regimen includes DuoNebs, prednisone 10 mg daily, azithromycin 250 mg nightly
-Patient uses supplemental oxygen as needed
-Stable, continue usual neb regimen / inhaled medications.
#Hypothyroidism
-Unclear etiology, home regimen includes levothyroxine 175 mcg daily
-No signs or symptoms of abnormal thyroid function here
#Exocrine Pancreatic Insufficiency
-Unclear etiology, home regimen includes Creon with no
-Stable. Continue Creon AC
#Anemia of Chronic Disease
-Hgb slightly decreased from usual baseline, no reported bleeding issues.
-Check iron studies as above
-Trend CBC
Diet: Carb controlled, sodium and fluid restricted
DVT Prophylaxis: Eliquis
Code Status: DNR
Anticipated Discharge: Within 24 hours
Subjective/Interval History
-
Date of Service: April 08, 2025
Seen and examined at the bedside. No acute events reported overnight. AFVSS on 2 L O2 with SpO2 high 90s
Renal function remains stable. Creatinine down to 1.5 with BUN up to 44.
Patient denies any new complaints this morning. States he feels well and is ready to go home
Objective Data
-
Labs:
Laboratory Results
04/08/25
07:25
WBC 16.1 H
Hgb 8.2 L
Hct 26.9 L
Plt Count 234
Sodium 141
Potassium 4.6
Chloride 107
Carbon Dioxide 27
BUN 44 H
Creatinine 1.5 H
Glucose 96
Calcium 8.1 L
Vital Signs:
Vital Signs
Temp Pulse Resp BP Pulse Ox
98.4 F 82 14 127/57 98
04/08/25 11:16 04/08/25 11:16 04/08/25 11:16 04/08/25 11:16 04/08/25 11:16
I&O
04/07/25 04/08/25 04/09/25
06:59 06:59 06:59
Intake Total 1140 / 1140 900 / 900
Output Total 925 / 925 975 / 975
Balance 215 / 215 -75 / -75
Review of Systems
-
History Source: Patient
All other systems: Reviewed and negative
Physical Exam
-
General: Well Developed, Well Nourished, No Apparent Distress and Comfortable
HEENT: Normocephalic, Atraumatic, Moist Mucous Membranes, Anicteric and Oxygen
Respiratory: Clear to Auscultation and Non Labored Respirations; Negative Accessory Resp Muscle Use
Cardiac: Regular Rhythm, S1/S2 and Murmur; Negative Rub, JVD or Gallop
GI: Soft, Nontender, Nondistended and Normal Bowel Sounds
Musculoskeletal: No Clubbing, No Cyanosis and Other (1-2+ pitting edema)
Skin: Warm, Dry and Normal Turgor; Negative Rash
Neuro: AO x 3 and Nonfocal/Grossly Intact; Negative Tremors
Psych: Calm
Data Reviewed
-
Labs: Labs Reviewed by me, Discussed with Physician (Cardiology) and Discussed with Patient
[2025-04-08] MEDS: COLCHICINE 0.6 MG PO ×2 (12:33→12:34)
[2025-04-08] MEDS: FERRLECIT 110 MG IV (13:35)
--- NOTE | 2025-04-08 14:05 | W.PN.CARDCBS ---
Addendum entered and electronically signed by Stephen Alcaraz MD 04/08/25 14:41:
84-year-old man admitted March for with acute on chronic HFpEF, he complains of lower extremity edema but not of dyspnea, he is complaining of gouty pain as well
PMH/PSH: HFpEF, PAF, LAD PCI May 2024, history of TAVR 2019, Medtronic pacemaker, COPD, hypertension, hyperlipidemia, diabetes, CKD
Outpatient heart failure meds: Jardiance, metolazone 2.5 mg twice weekly, potassium 20 mEq daily, torsemide 30 mg a.m. and 20 mg p.m.
Current meds: Amiodarone 200 mg a day, apixaban 2.5 twice daily, atorvastatin 40 mg at bedtime, Pulmicort, clopidogrel 75 mg daily, donepezil 10 mg at bedtime, doxazosin 3 mg at bedtime, dapagliflozin 10 mg a day, Mucinex, Synthroid, Zenpep,
pantoprazole, metoprolol succinate 25 twice daily, prednisone 40 mg a day, sertraline 50 mg at bedtime, furosemide 80 IV twice daily, iron, metolazone written for today
127/57, pulse 82, respiratory rate 14, afebrile, weight is 83.9 kg, up 0.7 kg admission weight was 88 kg, pleasant, daughter who is a nurse practitioner is on the phone, head neck exam unremarkable, lungs are relatively clear JVD okay, no obvious
murmur,, abdomen benign still 2+ edema
Hemoglobin 8.2, MCV is 80.8, BUN/creatinine are 44 and 1.5, creatinine had been 1.7, potassium is 4.6
Echo 04/05/2025: EF 60-65%, normal RV, pacing wire, moderate to severe mitral stenosis, peak/mean gradient 26/13 mmHg, Fleming #26 TAVR, peak/mean gradient 37/22 mmHg, pulmonary artery systolic pressure 50-55 mmHg
Assessment:
Presentation with SOB
Anasarca
FAHEEM on CKD
Concern for RUE cellulitis versus gout flare
Chronic HFpEF
Paroxysmal atrial fibrillation
Chronic Eliquis anticoagulation
CAD
s/p BLADIMIR to mid LAD 01/13/2020
s/p BLADIMIR to prox LAD 06/21/2024s/p TAVR 26 mm Fleming Valve 05/11/2020
MS/MR, mild to mod by echo 2023
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
COPD
Carotid stenosis
Hypertension
Hyperlipidemia
Hypothyroidism
Type 2 DM
Renal insufficiency
Frequent PVCs, NSVT
DNR code status
Plan:
Overall improved but still with evidence of volume overload. Will add metolazone which he takes twice a week at home. Continue IV furosemide
He is anemic, iron deficient and both Plavix and Eliquis. He has been 10 months since his PCI, so we will stop clopidogrel. Continue Eliquis.
He is in sinus rhythm on amiodarone. Ventricularly paced on telemetry.
Currently on colchicine for his gout. He is also on prednisone at 40 mg a day, baseline prednisone dose is 10 mg a day for COPD. Defer management of colchicine to Dr. Del Toro.
Discussed with patient and daughter.
Original Note:
Today's Communication / Plan
-
continue IV lasix
add metolazone 2.5mg and assess response
add colchicine for gout
Impression / Plan
-
Primary Safety Consultant: Dr. Deana Palomino
Assessment:
Presentation with SOB
Anasarca
FAHEEM on CKD
Concern for RUE cellulitis versus gout flare
Chronic HFpEF
Paroxysmal atrial fibrillation
Chronic Eliquis anticoagulation
CAD
s/p BLADIMIR to mid LAD 01/13/2020
s/p BLADIMIR to prox LAD 06/21/2024
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
MS/MR, mild to mod by echo 2023
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
COPD
Carotid stenosis
Hypertension
Hyperlipidemia
Hypothyroidism
Type 2 DM
Renal insufficiency
Frequent PVCs, NSVT
DNR code status
Echo 06/18/2024: EF 50 to 55%, stage II diastolic dysfunction, mild to moderate MS with peak/mean gradient 16/8 mmHg, moderate MR, severely dilated left atrium, status post number 26 mm TAVR with peak/mean gradients of 25/17 mmHg, trace AR, trace TR,
PAP 30 mmHg
ECHO 04/05/2025: EF 60 to 65%, no regional wall motion abnormalities noted, mild concentric LVH, moderate to severe MS with peak/mean gradients 26/13 mmHg, Fleming ROSARIO #26 TAVR with peak/mean gradients 37/22 mmHg, trace TR, PAP 50 to 55 mmHg
Plan:
-Patient presents with SOB and anasarca after OP metolazone was held over the last 1.5 weeks.
-Continue IV Lasix 80 mg twice daily. Remains with lower extremity edema and without significant weight loss, therefore we will add metolazone 2.5 mg daily to regimen and assess response dry weight. previously felt to be 185 pounds, however will
need to establish new dry weight
-Cr stable at 1.5
-Echo with results as above, EF preserved but with mod to severe MS
-CHF education
-Compression stockings ordered
-Device interrogated 04/05 with less than 0.1% A-fib burden. In paced rhythm on review of telemetry, at times AV paced and at times a sensed V paced. continue amiodarone
-continue OP toprol, farxiga, cardura. not felt to be candidate for stanley/arb given chronic renal insufficiency and relative hypotension. OP norvasc presently on hold.
-continue plavix, eliquis given history of LAD PCI 05/2024. no CP reported
-Also reports right hand pain and redness, with concern for gout flare given increased diuretic dosing. Discussed with hospitalist, will treat with colchicine.
-PT/OT
Progress Note - Safety Consultant
Subjective
Date of Service: April 08, 2025
denies CP, SOB. denies significant urine output. remains with LE edema
Objective
Labs:
04/08/25 07:25
04/08/25 07:25
Labs
Hgb 8.2 g/dL (13.0-18.0) L 04/08/25 07:25
Hct 26.9 % (39.0-52.0) L 04/08/25 07:25
Plt Count 234 10^3/uL (130-400) 04/08/25 07:25
Sodium 141 mmol/L (135-145) 04/08/25 07:25
Potassium 4.6 mmol/L (3.5-5.1) 04/08/25 07:25
BUN 44 mg/dl (9-20) H 04/08/25 07:25
Creatinine 1.5 mg/dL (0.7-1.3) H 04/08/25 07:25
Glucose 96 mg/dl (70-99) 04/08/25 07:25
Troponins
04/05/25
17:45
Troponin I < 0.012
Vital Signs and I&O:
Vital Signs
Temp Pulse Resp BP Pulse Ox
98.4 F 82 14 127/57 98
04/08/25 11:16 04/08/25 11:16 04/08/25 11:16 04/08/25 11:16 04/08/25 11:16
Vital Signs
Temp Pulse Resp BP Pulse Ox
98.4 F 82 14 127/57 98
04/08/25 11:16 04/08/25 11:16 04/08/25 11:16 04/08/25 11:16 04/08/25 11:16
Intake & Output
04/06/25 04/07/25 04/08/25 04/09/25
07:59 07:59 07:59 07:59
Intake Total 480 / 480 1140 / 1140 900 / 900
Output Total 905 / 905 925 / 925 975 / 975
Balance -425 / -425 215 / 215 -75 / -75
Physical Exam
Physical Exam
GEN: No distress, awake, alert, oriented x3
HEENT: supple, anicteric, mmm, eomi
LUNGS: CTA B/L, no wheezes/rales
CV: Reg, S1/S2, 2/6 murmur
ABD: soft, BS+, NT/ND
EXT: No cyanosis, clubbing. 3+ edema of B/L LE
NEURO: Gross non-focal
SKIN: Warm, pink, dry. No rash
[2025-04-08 15:56] VITALS: BP 150/62
[2025-04-08] MEDS: ZAROXOLYN 2.5 MG PO (16:10)
--- NOTE | 2025-04-08 16:19 | CM ---
Addendum entered by Porsha Zhao 04/11/25 16:41:
Pt declined VN services; daughter will call PCP if she decides to arrange VN at a later date.
Original Note:
Patient seen bedside, CRISTO completed. Patient resides with his at [facility]. Patient denies DME, VN, or SNF. Patient
PCP Dexter Meng
Pharmacy: [facility].
Plan: CM will continue to follow for all discharge planning needs. Watch for home PT needs.
[2025-04-08 16:44] LABS: Glucose - Point of Care 223 mg/dl (70-99)
[2025-04-08] MEDS: NOVOLOG FLEXPEN-MODERATE RESISTANCE 3 UNITS SC (16:44)
[2025-04-08] MEDS: PACERONE 200 MG PO (17:14)
[2025-04-08] MEDS: PROTONIX 40 MG PO (17:14)
[2025-04-08] MEDS: ZITHROMAX 250 MG PO (17:14)
[2025-04-08] MEDS: CARDURA 3 MG PO (20:50)
[2025-04-08] MEDS: LIPITOR 40 MG PO (20:51)
[2025-04-08] MEDS: ARICEPT 10 MG PO (20:51)
[2025-04-08] MEDS: ZOLOFT 50 MG PO (20:51)
[2025-04-08 20:55] VITALS: BP 115/59
[2025-04-09] VITALS (7 sets, daily range): BP systolic 94–140; BP diastolic 38–91; PULSE 91; O2SAT 98; BMI 26.3
[2025-04-09 01:16] LABS: Glucose - Point of Care 194 mg/dl (70-99)
[2025-04-09] MEDS: TYLENOL 1000 MG PO ×2 (04:12→12:58)
[2025-04-09] MEDS: SYNTHROID 175 MCG PO (05:56)
[2025-04-09] MEDS: ZENPEP DELAYED RELEASE CAPSULE 2 CAPSULE PO ×3 (05:56→17:44)
[2025-04-09] MEDS: DUONEB 3 ML INH ×3 (07:33→17:51)
[2025-04-09] MEDS: PULMICORT INH ×2 (07:33→17:51)
[2025-04-09 07:46] LABS: Glucose - Point of Care 110 mg/dl (70-99)
[2025-04-09] MEDS: NOVOLOG FLEXPEN-MODERATE RESISTANCE SC ×2 (08:49→12:55)
[2025-04-09] MEDS: TOPROL XL 25 MG PO ×2 (08:53→20:59)
[2025-04-09] MEDS: ELIQUIS 2.5 MG PO ×2 (08:53→20:59)
[2025-04-09] MEDS: FARXIGA 10 MG PO (08:53)
[2025-04-09] MEDS: MUCINEX 600 MG PO ×2 (08:53→20:59)
[2025-04-09] MEDS: COLCHICINE 0.6 MG PO (08:53)
[2025-04-09] MEDS: DELTASONE 40 MG PO (08:54)
[2025-04-09] MEDS: LASIX 80 MG IV (08:54)
--- NOTE | 2025-04-09 09:00 | PTCARENOTE ---
Pt c/o unrelieved 8/10 pain throughout right hand. MD made aware, new order provided, see MAR.
[2025-04-09] MEDS: ROXICODONE 5 MG PO ×2 (10:12→14:10)
[2025-04-09 10:32] LABS: % Basophils 0.1 % (0-2); % Eosinophils 0.5 % (0-6); % Lymphocytes 8.6 % (20.5-51.1); % Monocytes 8.4 % (1.7-9.3); % Neutrophils 79.4 % (42.2-75.2); Absolute Eosinophils 0.1 10^3/uL (0-0.7); Absolute Immature Granulocytes 0.5 10^3/uL (0-0.05); Absolute Lymphocytes 1.4 10^3/uL (1.2-3.4); Absolute Monocytes 1.4 10^3/uL (0.1-0.6); Hematocrit 29.8 % (39.0-52.0); Mean Corp Hgb Conc. 30.2 g/dL (33.0-37.0); Mean Corpuscular Hgb 24.6 pg (27.0-31.0); Mean Corpuscular Volume 81.4 fL (80.0-94.0); Mean Platelet Volume 10.4 fL (7.4-10.4); Nucleated Red Blood Cells % 0 % (-); Platelet Count 251 10^3/uL (130-400); Red Blood Cell Count 3.66 10^6/uL (4.70-6.10); Red Cell Dist. Width 19.3 % (11.5-14.5); White Blood Cell Count 16.4 10^3/uL (4.8-10.8)
[2025-04-09 11:02] LABS: Blood Urea Nitrogen 42 mg/dl (9-20); Calcium 8.4 mg/dl (8.4-10.2); Carbon Dioxide 31 mmol/L (22-30); Chloride 105 mmol/L (98-107); Estimated Creatinine Clearance 35 ml/min; Glucose 168 mg/dl (70-99); Magnesium 2.2 mg/dl (1.6-2.3); Potassium 4.5 mmol/L (3.5-5.1); Sodium 139 mmol/L (135-145); eGFR 42.22
--- NOTE | 2025-04-09 11:25 | W.PN.CARDCBS ---
Addendum entered and electronically signed by Stephen Alcaraz MD 04/09/25 15:10:
84-year-old man admitted March for 6 with acute on chronic HFpEF, he complains of lower extremity edema but not of dyspnea, he is complaining of gouty pain as well
PMH/PSH: HFpEF, PAF, LAD PCI May 2024, history of TAVR 2019, Medtronic pacemaker, COPD, hypertension, hyperlipidemia, diabetes, CKD
Outpatient heart failure meds: Jardiance, metolazone 2.5 mg twice weekly, potassium 20 mEq daily, torsemide 30 mg a.m. and 20 mg p.m.
Current medications: Amiodarone 200 mg a day, apixaban 2.5 mg twice daily, atorvastatin 40 mg a day, Pulmicort, azithromycin, donepezil 10 mg a day, doxazosin 3 mg at bedtime, dapagliflozin 10 mg a day, guaifenesin, levothyroxine, pancrelipase,
pantoprazole, metoprolol ER 25 twice daily, prednisone 40 mg a day, sertraline 50 mg a day, furosemide 80 mg IV twice daily, colchicine 0.6 mg a day and metolazone written for this afternoon
127/60, pulse 97, resp 20, weight is 83.3 kg, down 0.6 kg, no distress, head neck exam unremarkable, lungs are clear, regular rate and rhythm, soft systolic murmur at apex and base, JVD okay 2+ edema, abdomen benign
hemoglobin is 9 had been 8.2, BUN and creatinine are 42 and 1.6, creatinine is overall stable
Plan:
Agree with findings, assessment, recommendations as per Latasha back listed below
He looks reasonably well, and not much evidence of left heart failure but still with persistent edema in the setting of CKD with a creatinine that is overall fairly stable.
His hemoglobin has risen somewhat. He remains on apixaban at 2.5 mg twice daily. He is on dapagliflozin, not on spironolactone given CKD.
Mitral stenosis may be contributing to his current presentation.
Still in sinus rhythm, telemetry okay
Remains on furosemide 80 mg IV twice daily. Outpatient torsemide is a total of 50 mg daily.
Will increase furosemide to 100 mg IV twice daily, will make afternoon dose of metolazone 5 mg.
Will prescribe Tubigrip's.
Will need to follow renal function closely.
Original Note:
Today's Communication / Plan
-
Zaroxolyn again today
Continue treatment of gout
Impression / Plan
-
Primary Mine Inspector: Dr. Deana Palomino
Assessment:
Presentation with SOB
Anasarca
FAHEEM on CKD
Concern for RUE cellulitis versus gout flare
Chronic HFpEF
Paroxysmal atrial fibrillation
Chronic Eliquis anticoagulation
CAD
s/p BLADIMIR to mid LAD 01/13/2020
s/p BLADIMIR to prox LAD 06/21/2024
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
MS/MR, mild to mod by echo 2023
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
COPD
Carotid stenosis
Hypertension
Hyperlipidemia
Hypothyroidism
Type 2 DM
Renal insufficiency
Frequent PVCs, NSVT
DNR code status
Echo 06/18/2024: EF 50 to 55%, stage II diastolic dysfunction, mild to moderate MS with peak/mean gradient 16/8 mmHg, moderate MR, severely dilated left atrium, status post number 26 mm TAVR with peak/mean gradients of 25/17 mmHg, trace AR, trace TR,
PAP 30 mmHg
ECHO 04/05/2025: EF 60 to 65%, no regional wall motion abnormalities noted, mild concentric LVH, moderate to severe MS with peak/mean gradients 26/13 mmHg, Fleming ROSARIO #26 TAVR with peak/mean gradients 37/22 mmHg, trace TR, PAP 50 to 55 mmHg
Plan:
-Patient presents with SOB and anasarca after OP metolazone was held over the last 1.5 weeks.
-responded well to metolazone 2.5mg daily, will give again today with PM IV lasix. previous dry weight was 185 pounds, will need to establish new dry weight
-Cr stable at 1.6
-discussed that likely worsening MS contributing to his symptoms, mod to severe by echo 04/05. will need to follow as OP and can discuss options for treatment if worsens (? TMVR candidacy)
-CHF education
-continue compression stockings
-Device interrogated 04/05 with less than 0.1% A-fib burden. av paced on tele. continue amiodarone
-continue OP toprol, jordan baker. not felt to be candidate for stanley/arb given chronic renal insufficiency and relative hypotension. OP norvasc presently on hold.
-continue plavix, eliquis given history of LAD PCI 05/2024. no CP reported
-continue treatment of R hand gout flare per primary service
-PT/OT
Progress Note - Mine Inspector
Subjective
Date of Service: April 09, 2025
Reports good urine output with Zaroxolyn. Continues to complain of right hand pain
Objective
Labs:
04/09/25 10:14
04/09/25 10:14
Labs
Hgb 9.0 g/dL (13.0-18.0) L 04/09/25 10:14
Hct 29.8 % (39.0-52.0) L 04/09/25 10:14
Plt Count 251 10^3/uL (130-400) 04/09/25 10:14
Sodium 139 mmol/L (135-145) 04/09/25 10:14
Potassium 4.5 mmol/L (3.5-5.1) 04/09/25 10:14
BUN 42 mg/dl (9-20) H 04/09/25 10:14
Creatinine 1.6 mg/dL (0.7-1.3) H 04/09/25 10:14
Glucose 168 mg/dl (70-99) H 04/09/25 10:14
Vital Signs and I&O:
Vital Signs
Temp Pulse Resp BP Pulse Ox
97.1 F 73 20 137/64 100
04/09/25 08:24 04/09/25 08:53 04/09/25 08:24 04/09/25 08:53 04/09/25 08:24
Vital Signs
Temp Pulse Resp BP Pulse Ox
97.1 F 73 20 137/64 100
04/09/25 08:24 04/09/25 08:53 04/09/25 08:24 04/09/25 08:53 04/09/25 08:24
Intake & Output
04/07/25 04/08/25 04/09/25 04/10/25
07:59 07:59 07:59 07:59
Intake Total 1140 / 1140 900 / 900 480 / 480
Output Total 925 / 925 975 / 975 300 / 300
Balance 215 / 215 -75 / -75 180 / 180
Physical Exam
Physical Exam
GEN: No distress, awake, alert, oriented x3
HEENT: supple, anicteric, mmm, eomi
LUNGS: CTA B/L, no wheezes/rales
CV: Reg, S1/S2, 2/6 murmur
ABD: soft, BS+, NT/ND
EXT: No cyanosis, clubbing. 2-3+ edema of B/L LE
NEURO: Gross non-focal
SKIN: Warm, pink, dry. No rash
[2025-04-09 12:05] LABS: Glucose - Point of Care 124 mg/dl (70-99)
--- NOTE | 2025-04-09 12:39 | W.PN.HOSP.TC ---
Today's Communication/Plan
-
Continue diuretics (additional metolazone per cardiology)
Continue prednisone and colchicine
Trend BMP and weights
Start PRN oxy
Leg elevation and compression
Assessment / Plan
Assessment / Plan
#Acute on Chronic HFpEF
# s/p TAVR with moderate bioprosthetic stenosis
#Moderate mitral stenosis
-Unclear cause for his valvular abnormalities, question rheumatism with mitral and aortic stenosis
-Home regimen for chronic HFpEF included SGLT2i, torsemide/metolazone, beta-jacy
-Per history his metolazone ultimately had to be held due to acute kidney injury
-Has been on IV diuresis with 80 mg Lasix twice daily, creatinine plateauing
-Iron saturation low level <20%, was started on IV iron for 5 days
-Albumin 2.7, question if residual edema is mostly third spacing
-Received metolazone on 04/08, renal function about the same 04/09
-Warm and wet phenotype, on baseline O2
Plan
-Continue with IV Lasix 80 BID + PRN metolazone; I/O + BMP + weights
-Continue with SGLT2 inhibitor for GDMT, as well as beta-jacy
-Continue IV iron per ferric HF trial
-Continue on telemetry
-SpO2 goal 88 to 94%
-Leg elevation and wrapping
#FAHEEM on CKD III
-Secondary to cardiorenal syndrome, creatinine slowly improving with IV diuresis
-Baseline creatinine near 1.4; presented with creatinine 2.3, down to 1.7 today
-Continue with IV diuretics and trend BMP
-Monitor I's/O's and weights
#Migratory Polyarthritis
-Differentials include gout (in context of IV diuretics and high uric acid) versus CPPD (due to joint distribution)
-Was treated with IV antibiotics initially due to concerns for cellulitis, discontinued on 04/06
-Was started on prednisone and IV antibiotics, no culture seen initially due to FAHEEM
-Continue prednisone and colchicine, as needed oxycodone for pain
-Plan for allopurinol 2 weeks after resolution
-Expect improvement when off IV diuretic
#CAD s/p PCI x 2 to LAD
-Home medications include high intensity statin, Plavix, beta-jacy
-No history of systolic dysfunction
-Low suspicion for ACS
#Paroxysmal Atrial Fibrillation
#Heart Block s/p PPM
-Home regimen includes beta-jacy and reduced dose Eliquis
-Heart rate here has been WNL
#Benign Hypertension
-Home regimen includes amlodipine, beta-jacy, loop diuretic, doxazosin
-Stable, continue current meds and adjust as needed.
-Holding parameters to avoid hypotension / allow effective diuresis.
#NIDDM
-Stable, A1c 6.8%. Hold sulfonylurea. Continue Jardiance
-No known history of microvascular disease complication
-Follow glucose and cover with SSI as needed.
#COPD/ILD
#IMANI
#Chronic Hypoxemic Respiratory Insufficiency
-Home regimen includes DuoNebs, prednisone 10 mg daily, azithromycin 250 mg nightly
-Patient uses supplemental oxygen as needed
-Stable, continue usual neb regimen / inhaled medications.
#Hypothyroidism
-Unclear etiology, home regimen includes levothyroxine 175 mcg daily
-No signs or symptoms of abnormal thyroid function here
#Exocrine Pancreatic Insufficiency
-Unclear etiology, home regimen includes Creon with no
-Stable. Continue Creon AC
#Anemia of Chronic Disease
-Hgb slightly decreased from usual baseline, no reported bleeding issues.
-Check iron studies as above
-Trend CBC
Diet: Carb controlled, sodium and fluid restricted
DVT Prophylaxis: Eliquis
Code Status: DNR
Anticipated Discharge: 24 - 48 hours
Subjective/Interval History
-
Date of Service: April 09, 2025
Seen and examined at the bedside. No acute events reported overnight. AFVSS this morning on low-level O2
Renal function remains stable on current diuresis of diuretic. Remainder of labs stable
Continues to complain of right hand pain. Ordered oxycodone 5 mg. No other new complaints
Objective Data
-
Labs:
Laboratory Results
04/09/25
10:14
WBC 16.4 H
Hgb 9.0 L
Hct 29.8 L
Plt Count 251
Sodium 139
Potassium 4.5
Chloride 105
Carbon Dioxide 31 H
BUN 42 H
Creatinine 1.6 H
Glucose 168 H
Calcium 8.4
Vital Signs:
Vital Signs
Temp Pulse Resp BP Pulse Ox
97.1 F 73 20 137/64 100
04/09/25 08:24 04/09/25 08:53 04/09/25 08:24 04/09/25 08:53 04/09/25 08:24
I&O
04/08/25 04/09/25 04/10/25
06:59 06:59 06:59
Intake Total 900 / 900 480 / 480
Output Total 975 / 975 300 / 300
Balance -75 / -75 180 / 180
Review of Systems
-
History Source: Patient
All other systems: Reviewed and negative
Physical Exam
-
General: Well Developed, No Apparent Distress and Comfortable
HEENT: Normocephalic, Atraumatic, Moist Mucous Membranes and Anicteric
Respiratory: Clear to Auscultation and Non Labored Respirations
Cardiac: Regular Rhythm and S1/S2; Negative Murmur, Rub or Gallop
GI: Soft, Nontender, Nondistended and Normal Bowel Sounds
Musculoskeletal: No Clubbing, No Cyanosis and Other (2+ lower extremity edema)
Skin: Warm, Dry and Normal Turgor; Negative Rash
Neuro: AO x 3 and Nonfocal/Grossly Intact; Negative Tremors
Psych: Calm
Data Reviewed
-
Labs: Labs Reviewed by me and Discussed with Patient
[2025-04-09] MEDS: FERRLECIT 110 MG IV (12:59)
[2025-04-09] MEDS: LASIX 100 MG IV (16:05)
[2025-04-09] MEDS: ZAROXOLYN 5 MG PO (16:05)
[2025-04-09 16:41] LABS: Glucose - Point of Care 221 mg/dl (70-99)
[2025-04-09] MEDS: NOVOLOG FLEXPEN-MODERATE RESISTANCE 3 UNITS SC (17:07)
[2025-04-09] MEDS: PROTONIX 40 MG PO (17:44)
[2025-04-09] MEDS: ZITHROMAX 250 MG PO (17:44)
[2025-04-09] MEDS: PACERONE 200 MG PO (17:44)
[2025-04-09] MEDS: LIPITOR 40 MG PO (20:59)
[2025-04-09] MEDS: CARDURA 3 MG PO (20:59)
[2025-04-09] MEDS: ZOLOFT 50 MG PO (20:59)
[2025-04-09] MEDS: ARICEPT 10 MG PO (20:59)
[2025-04-09 22:17] LABS: Glucose - Point of Care 241 mg/dl (70-99)
[2025-04-10] VITALS (7 sets, daily range): BP systolic 111–131; BP diastolic 49–60; BMI 26.0
[2025-04-10] MEDS: SYNTHROID 175 MCG PO (06:28)
[2025-04-10] MEDS: ROXICODONE 5 MG PO (06:28)
[2025-04-10 07:11] LABS: Glucose - Point of Care 117 mg/dl (70-99)
[2025-04-10] MEDS: PULMICORT INH ×2 (07:41→20:02)
[2025-04-10] MEDS: NOVOLOG FLEXPEN-MODERATE RESISTANCE SC ×2 (08:31→12:23)
[2025-04-10 08:38] LABS: Blood Urea Nitrogen 44 mg/dl (9-20); Calcium 8.1 mg/dl (8.4-10.2); Carbon Dioxide 30 mmol/L (22-30); Chloride 104 mmol/L (98-107); Estimated Creatinine Clearance 38 ml/min; Glucose 111 mg/dl (70-99); Sodium 140 mmol/L (135-145); eGFR 45.62
[2025-04-10] MEDS: TOPROL XL 25 MG PO ×2 (08:38→21:22)
[2025-04-10] MEDS: DELTASONE 40 MG PO (08:38)
[2025-04-10] MEDS: FARXIGA 10 MG PO (08:38)
[2025-04-10] MEDS: ZENPEP DELAYED RELEASE CAPSULE 2 CAPSULE PO ×3 (08:38→15:42)
[2025-04-10] MEDS: MUCINEX 600 MG PO ×2 (08:38→21:22)
[2025-04-10] MEDS: ELIQUIS 2.5 MG PO ×2 (08:38→21:22)
[2025-04-10] MEDS: COLCHICINE 0.6 MG PO (08:38)
[2025-04-10] MEDS: TYLENOL 1000 MG PO (08:39)
[2025-04-10] MEDS: ZAROXOLYN 5 MG PO (09:35)
[2025-04-10] MEDS: LASIX 100 MG IV ×2 (10:18→15:42)
--- NOTE | 2025-04-10 11:41 | W.PN.CARDCBS ---
Today's Communication / Plan
-
Continue IV furosemide 100 mg twice daily
Continue metolazone 5 mg every morning, creatinine stable at 1.5
Increase base rate of pacemaker
Hopefully transition to oral diuretics in 24 to 48 hours was on torsemide -
Impression / Plan
-
Primary Care Consultant: Dr. Deana Palomino
Assessment:
Presentation with SOB
Anasarca
FAHEEM on CKD
Concern for RUE cellulitis versus gout flare
Chronic HFpEF
Paroxysmal atrial fibrillation
Chronic Eliquis anticoagulation
CAD
s/p BLADIMIR to mid LAD 01/13/2020
s/p BLADIMIR to prox LAD 06/21/2024
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
MS/MR, mild to mod by echo 2023
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
COPD
Carotid stenosis
Hypertension
Hyperlipidemia
Hypothyroidism
Type 2 DM
Renal insufficiency
Frequent PVCs, NSVT
DNR code status
Echo 06/18/2024: EF 50 to 55%, stage II diastolic dysfunction, mild to moderate MS with peak/mean gradient 16/8 mmHg, moderate MR, severely dilated left atrium, status post number 26 mm TAVR with peak/mean gradients of 25/17 mmHg, trace AR, trace TR,
PAP 30 mmHg
ECHO 04/05/2025: EF 60 to 65%, no regional wall motion abnormalities noted, mild concentric LVH, moderate to severe MS with peak/mean gradients 26/13 mmHg, Fleming ROSARIO #26 TAVR with peak/mean gradients 37/22 mmHg, trace TR, PAP 50 to 55 mmHg
Plan:
His volume status is improved at present having received metolazone 5 mg with furosemide 100 mg IV.
Continue furosemide 100 mg IV twice daily with metolazone 5 mg every morning.
Still somewhat above dry weight, hopefully transition to oral regimen in 24 to 48 hours.
Now with Tubigrip's.
Increase in base rate of pacemaker to 70 may be of value. Currently he is pacing at 60. Despite mitral stenosis I think increasing heart rate may be beneficial.
He is still on Plavix and Eliquis. Last PCI was May 2024.
It seems that his gouty symptoms of the right upper extremity are improving on colchicine and prednisone.
Defer management of COPD to primary service.
Otherwise no change in cardiac regimen at present.
Progress Note - Care Consultant
Subjective
Date of Service: April 10, 2025:
84-year-old man admitted March for 6 with acute on chronic HFpEF, he complains of lower extremity edema but not of dyspnea, he is complaining of gouty pain as well
PMH/PSH: HFpEF, PAF, LAD PCI May 2024, history of TAVR 2019, Medtronic pacemaker, COPD, hypertension, hyperlipidemia, diabetes, CKD
Outpatient heart failure meds: Jardiance, metolazone 2.5 mg twice weekly, potassium 20 mEq daily, torsemide 30 mg a.m. and 20 mg p.m.
Current meds: Pulmicort, DuoNebs, amiodarone 200 mg a day, apixaban 2.5 twice daily, atorvastatin 40 mg at bedtime, Zithromax 250 mg daily, donepezil 10 mg at bedtime, Cardura 3 mg at bedtime, dapagliflozin 10 mg daily, guaifenesin 600 twice daily,
levothyroxine, pancrelipase, pantoprazole, metoprolol ER 25 twice daily, prednisone 40 mg daily, sertraline 50 mg at bedtime, IV iron, colchicine 0.6, furosemide 100 mg IV twice daily, patient received metolazone 5 mg this morning
111/60, pulse 70, weight is 82.25 kg, down 1.1 kg pleasant, mildly confused, some rhonchi and wheezes no obvious rales, 80 probably, he has a soft systolic murmur at the apex still with edema, Tubigrip's
BUN and creatinine are 44 and 1.5, stable, potassium is 4, had been 4.5
Objective
Labs:
04/09/25 10:14
04/10/25 08:04
Labs
Hgb 9.0 g/dL (13.0-18.0) L 04/09/25 10:14
Hct 29.8 % (39.0-52.0) L 04/09/25 10:14
Plt Count 251 10^3/uL (130-400) 04/09/25 10:14
Sodium 140 mmol/L (135-145) 04/10/25 08:04
Potassium 4.0 mmol/L (3.5-5.1) 04/10/25 08:04
BUN 44 mg/dl (9-20) H 04/10/25 08:04
Creatinine 1.5 mg/dL (0.7-1.3) H 04/10/25 08:04
Glucose 111 mg/dl (70-99) H 04/10/25 08:04
Vital Signs and I&O:
Vital Signs
Temp Pulse Resp BP Pulse Ox
36.6 C 69 20 111/60 97
04/10/25 11:33 04/10/25 11:33 04/10/25 11:33 04/10/25 11:33 04/10/25 11:33
Vital Signs
Temp Pulse Resp BP Pulse Ox
36.6 C 69 20 111/60 97
04/10/25 11:33 04/10/25 11:33 04/10/25 11:33 04/10/25 11:33 04/10/25 11:33
Intake & Output
04/08/25 04/09/25 04/10/25 04/11/25
07:59 07:59 07:59 07:59
Intake Total 900 / 900 480 / 480 600 / 600
Output Total 975 / 975 300 / 300 200 / 200
Balance -75 / -75 180 / 180 400 / 400
Physical Exam
Physical Exam
See above
[2025-04-10 11:42] LABS: Glucose - Point of Care 111 mg/dl (70-99)
--- NOTE | 2025-04-10 11:54 | W.PN.HOSP.TC ---
Today's Communication/Plan
-
Continue IV Lasix with metolazone today
Continue prednisone/colchicine
Trend BMP and weights
Hopefully can transition to PO tomorrow
Assessment / Plan
Assessment / Plan
#Acute on Chronic HFpEF
# s/p TAVR with moderate bioprosthetic stenosis
#Moderate mitral stenosis
-Unclear cause for his valvular abnormalities, question rheumatism with mitral and aortic stenosis
-Home regimen for chronic HFpEF included SGLT2i, torsemide/metolazone, beta-jacy
-Per history his metolazone ultimately had to be held due to acute kidney injury
-Has been on IV diuresis with 80 mg Lasix twice daily, creatinine plateauing
-Iron saturation low level <20%, was started on IV iron for 5 days per Ferric HF
-Albumin 2.7, question if residual edema is mostly third spacing
-Has received intermittent doses of metolazone which have helped
-Warm and wet phenotype, on baseline O2
Plan
-Continue with IV Lasix 80 BID + PRN metolazone; I/O + BMP + weights
-Continue with SGLT2 inhibitor, for GDMT, as well as beta-jacy
-Continue on telemetry
-SpO2 goal 88 to 94%
-Leg elevation and wrapping
#FAHEEM on CKD III
-Secondary to cardiorenal syndrome, creatinine slowly improving with IV diuresis
-Baseline creatinine near 1.4; presented with creatinine 2.3, down to 1.7 today
-Continue with IV diuretics and trend BMP
-Monitor I's/O's and weights
#Migratory Polyarthritis
-Differentials include gout (in context of IV diuretics and high uric acid) versus CPPD (due to joint distribution)
-Was treated with IV antibiotics initially due to concerns for cellulitis, discontinued on 04/06
-Was started on prednisone and colchicine with PRN oxy, mildly improved
-Continue prednisone and colchicine, as needed oxycodone for pain
-Plan for allopurinol 2 weeks after resolution
-Expect improvement when off IV diuretic
#CAD s/p PCI x 2 to LAD
-Home medications include high intensity statin, Plavix, beta-jacy
-No history of systolic dysfunction
-Low suspicion for ACS
#Paroxysmal Atrial Fibrillation
#Heart Block s/p PPM
-Home regimen includes beta-jacy and reduced dose Eliquis
-Heart rate here has been WNL
#Benign Hypertension
-Home regimen includes amlodipine, beta-jacy, loop diuretic, doxazosin
-Stable, continue current meds and adjust as needed.
-Holding parameters to avoid hypotension / allow effective diuresis.
#NIDDM
-Stable, A1c 6.8%. Hold sulfonylurea. Continue Jardiance
-No known history of microvascular disease complication
-Follow glucose and cover with SSI as needed.
#COPD/ILD
#IMANI
#Chronic Hypoxemic Respiratory Insufficiency
-Home regimen includes DuoNebs, prednisone 10 mg daily, azithromycin 250 mg nightly
-Patient uses supplemental oxygen as needed/nightly
-Stable, continue usual neb regimen / inhaled medications.
#Hypothyroidism
-Unclear etiology, home regimen includes levothyroxine 175 mcg daily
-No signs or symptoms of abnormal thyroid function here
#Exocrine Pancreatic Insufficiency
-Unclear etiology, home regimen includes Creon with no
-Stable. Continue Creon AC
#Anemia of Chronic Disease
-Hgb slightly decreased from usual baseline, no reported bleeding issues.
-Trend CBC
Diet: Carb controlled, sodium and fluid restricted
DVT Prophylaxis: Eliquis
Code Status: DNR
Anticipated Discharge: 24 - 48 hours
Subjective/Interval History
-
Date of Service: April 10, 2025
Seen and examined at the bedside. No acute events reported overnight. AFVSS on room air
Renal function remains stable. Weight slowly downtrending. I/Os do not seem accurate
States that oxycodone is helping with the pain in his right hand, third MCP improved and now fifth MCP more tender
Objective Data
-
Labs:
Laboratory Results
04/10/25
08:04
Sodium 140
Potassium 4.0
Chloride 104
Carbon Dioxide 30
BUN 44 H
Creatinine 1.5 H
Glucose 111 H
Calcium 8.1 L
Vital Signs:
Vital Signs
Temp Pulse Resp BP Pulse Ox
97.9 F 69 20 111/60 97
04/10/25 11:33 04/10/25 11:33 04/10/25 11:33 04/10/25 11:33 04/10/25 11:33
I&O
04/09/25 04/10/25 04/11/25
06:59 06:59 06:59
Intake Total 480 / 480 600 / 600
Output Total 300 / 300 200 / 200
Balance 180 / 180 400 / 400
Review of Systems
-
History Source: Patient
All other systems: Reviewed and negative
Physical Exam
-
General: Well Developed, Well Nourished, No Apparent Distress and Comfortable
HEENT: Normocephalic, Atraumatic, Moist Mucous Membranes and Anicteric
Respiratory: Non Labored Respirations and Decreased Breath Sounds (Mild, bibasilar); Negative Wheezes, Rales, Rhonchi or Accessory Resp Muscle Use
Cardiac: Regular Rhythm, S1/S2, Murmur (diastolic rumble) and Other (2+ edema); Negative Rub, JVD or Gallop
GI: Soft, Nontender, Nondistended and Normal Bowel Sounds
Musculoskeletal: No Clubbing, No Cyanosis and Normal Gait & Station
Skin: Warm, Dry and Normal Turgor; Negative Rash
Neuro: AO x 3 and Nonfocal/Grossly Intact; Negative Tremors
Psych: Calm
Data Reviewed
-
Labs: Labs Reviewed by me and Discussed with Patient
[2025-04-10] MEDS: ROXICODONE 10 MG PO (12:32)
[2025-04-10] MEDS: FERRLECIT 110 MG IV (13:13)
--- NOTE | 2025-04-10 15:19 | PTCARENOTE ---
In beginning of shift pt stated, 'I only want pretty nurse in here taking care of me, I had someone come in here earlier that was huge, can't you just take my blood the next time?'. Pt also expressed frustration and informed this RN he hopes he does
not have insurance problems for staying too many days and stated, 'I am a but I have too much money to be on insurance'. Pt calm and discussing [facility] in [facility] with this RN. Around 1315, pt laying in bed and informed that he
is being connected to IV ferric gluconate in IV site to infuse. Approximately 10 minutes later, pt rang call [facility]. This RN and PCT in a different pt room. Upon exiting pt room, this RN answered [id number] call [facility] light about 5 minutes later. Pt angry.
Pt stated, 'Why would you hook me up to this? I am not able to walk into the bathroom now so I had an accident'. Pt increasingly agitated. Pt offered new pajama pants and gown. This RN changed linens on bed. PCT gathered washcloths and supplies to
help pt get cleaned up. Pt in bathroom washing self up. This RN checked on pt approximately 10 minutes later and pt yelled, 'I don't know why you would hook me up to that thing when I was half asleep, you have terrible nursing skills and I want a
new nurse'. Pt had another accident in bathroom and increasingly agitated. This RN offered new gown, wash clothes and pajama pants. This RN informed pt that he was informed that IV site was being flushed and connected to IV infusion so IV medication
could be administered. 'Pt stated, 'If you knew I had to have diarrhea this time yesterday, wouldn't you think I would have diarrhea the same time today? Now I had another accident. That was horrible nursing skills to hook me up to that thing
knowing I would have to go to the bathroom at this time again today'. This RN informed pt that I did not know he was going to have a bowel movement at that same time again and apologized for having him hooked up to IV site. Pt stated, 'I want a new
nurse'. Additional RN at bedside informed pt that it is inappropriate to talk to staff in this manner. Pt stated, 'If you think I am being mean then you are in the wrong'. Pt continued to be angry. Pt requested second RN to assist with fixing
monitoring analyst. Second RN left room while pt fixing gown and came back within a few minutes to help pt with monitoring analyst. Pt stated, 'What do you think you're doing?'. Second RN informed pt she was back to help pt fix monitoring analyst on
chest. Pt forgetful. Third RN at bedside and informed pt that she will administer afternoon medications. Third RN went to fix nasal cannula. Pt continued to be angry and waved finger in third RN's face stating that he does not want to use his
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 Third RN checked pt pulse ox on RA, result=98%.
[2025-04-10 16:48] LABS: Glucose - Point of Care 195 mg/dl (70-99)
[2025-04-10] MEDS: NOVOLOG FLEXPEN-MODERATE RESISTANCE 1 UNITS SC (16:56)
[2025-04-10] MEDS: ZITHROMAX 250 MG PO (16:57)
[2025-04-10] MEDS: PROTONIX 40 MG PO (16:57)
[2025-04-10] MEDS: PACERONE 200 MG PO (16:57)
[2025-04-10] MEDS: CARDURA 3 MG PO (21:22)
[2025-04-10] MEDS: ARICEPT 10 MG PO (21:22)
[2025-04-10] MEDS: ZOLOFT 50 MG PO (21:23)
[2025-04-10] MEDS: LIPITOR 40 MG PO (21:23)
[2025-04-10 22:18] LABS: Glucose - Point of Care 137 mg/dl (70-99)
[2025-04-11 03:00] VITALS: BP 122/53
[2025-04-11] MEDS: COLCHICINE 0.6 MG PO (05:44)
[2025-04-11] MEDS: SYNTHROID 175 MCG PO (05:44)
[2025-04-11 05:45] LABS: % Basophils 0.1 % (0-2); % Eosinophils 0.1 % (0-6); % Immature Granulocytes 3.2 % (0-0.5); % Lymphocytes 4.7 % (20.5-51.1); % Monocytes 5.4 % (1.7-9.3); % Neutrophils 86.5 % (42.2-75.2); Absolute Immature Granulocytes 0.7 10^3/uL (0-0.05); Absolute Lymphocytes 1.1 10^3/uL (1.2-3.4); Absolute Monocytes 1.2 10^3/uL (0.1-0.6); Absolute Neutrophils 19.2 10^3/uL (1.4-6.5); Hematocrit 27.3 % (39.0-52.0); Hemoglobin 8.3 g/dL (13.0-18.0); Mean Corp Hgb Conc. 30.4 g/dL (33.0-37.0); Mean Corpuscular Hgb 24.6 pg (27.0-31.0); Mean Corpuscular Volume 80.8 fL (80.0-94.0); Mean Platelet Volume 10.8 fL (7.4-10.4); Nucleated Red Blood Cells % 0 % (-); Platelet Count 205 10^3/uL (130-400); Red Blood Cell Count 3.38 10^6/uL (4.70-6.10); Red Cell Dist. Width 19.2 % (11.5-14.5); White Blood Cell Count 22.3 10^3/uL (4.8-10.8)
[2025-04-11 06:00] VITALS: BMI 25.6
[2025-04-11 06:14] LABS: Blood Urea Nitrogen 47 mg/dl (9-20); Calcium 8.2 mg/dl (8.4-10.2); Carbon Dioxide 32 mmol/L (22-30); Chloride 103 mmol/L (98-107); Estimated Creatinine Clearance 41 ml/min; Glucose 96 mg/dl (70-99); Magnesium 2.1 mg/dl (1.6-2.3); Potassium 3.9 mmol/L (3.5-5.1); Sodium 139 mmol/L (135-145); eGFR 49.56
[2025-04-11 07:15] VITALS: BP 117/62
[2025-04-11] MEDS: PULMICORT INH (07:33)
[2025-04-11] MEDS: MUCINEX 600 MG PO (07:59)
[2025-04-11] MEDS: TOPROL XL 25 MG PO (07:59)
[2025-04-11] MEDS: DELTASONE 40 MG PO (07:59)
[2025-04-11] MEDS: ELIQUIS 2.5 MG PO (07:59)
[2025-04-11] MEDS: FARXIGA 10 MG PO (07:59)
[2025-04-11 08:01] LABS: Glucose - Point of Care 167 mg/dl (70-99)
[2025-04-11] MEDS: ZAROXOLYN 5 MG PO (08:01)
[2025-04-11] MEDS: ZENPEP DELAYED RELEASE CAPSULE 2 CAPSULE PO ×3 (08:01→15:58)
[2025-04-11] MEDS: NOVOLOG FLEXPEN-MODERATE RESISTANCE 1 UNITS SC (08:03)
[2025-04-11] MEDS: ROXICODONE 10 MG PO (08:07)
[2025-04-11] MEDS: LASIX 100 MG IV (09:23)
[2025-04-11] MEDS: TYLENOL 1000 MG PO (09:27)
[2025-04-11 10:55] VITALS: BP 114/73
[2025-04-11 12:35] LABS: Glucose - Point of Care 266 mg/dl (70-99)
[2025-04-11] MEDS: NOVOLOG FLEXPEN-MODERATE RESISTANCE 5 UNITS SC (12:50)
--- NOTE | 2025-04-11 12:50 | W.PN.HOSP.TC ---
Today's Communication/Plan
-
Transition to oral diuretics
Continue to monitor joint pain
Plan discharge
Assessment / Plan
Assessment / Plan
Impression
84-year-old man admitted with acute on chronic HFpEF,AD PCI May 2024, history of TAVR 2019, Medtronic pacemaker, COPD, hypertension, hyperlipidemia, diabetes, CKD. He also has history of gout and complained of pain in multiple joints.
Assessment/plan
1. Acute on Chronic HFpEF
s/p TAVR with moderate bioprosthetic stenosis
Moderate mitral stenosis
Home regimen for chronic HFpEF included SGLT2i, torsemide/metolazone, beta-jacy
Using metolazone on as-needed basis for fluid overload, as he developed acute kidney injury in the past and is primarily taking Lasix
Iron saturation low level <20%, was started on IV iron for 5 days per Ferric HF
Albumin 2.7, question if residual edema is mostly third spacing
Currently breathing on room air, still in positive fluid balance of 340, his weight is below his dry weight which in the past was 188 pounds
Today the patient weighed 178 pounds approximately, needs to establish new dry weight
Continue diuresis, input output monitoring, weight charting
SpO2 goal 88 to 90%
Leg elevation and wrap to assist with fluid loss from body
Cardiology consult appreciated-Increase base rate of pacemaker
Hopefully transition to oral diuretics in 24 to 48 hours was on torsemide
2.FAHEEM on CKD III
-Secondary to cardiorenal syndrome, creatinine slowly improving with IV diuresis
Baseline creatinine near 1.4; serum creatinine returned to baseline
Continue with IV diuretics and trend BMP
Monitor I's/O's and weights
3.Migratory Polyarthritis
Differentials include gout (in context of IV diuretics and high uric acid) versus CPPD (due to joint distribution)
Was treated with IV antibiotics initially due to concerns for cellulitis, discontinued on 04/06
Was started on prednisone and colchicine with PRN oxy, mildly improved
Continue prednisone and colchicine, as needed oxycodone for pain
Plan for allopurinol 2 weeks after resolution
Expect improvement when off IV diuretic
Other medical conditions
#CAD s/p PCI x 2 to LAD
Home medications include high intensity statin, Plavix, beta-ajcy
No history of systolic dysfunction
Low suspicion for ACS
#Paroxysmal Atrial Fibrillation
#Heart Block s/p PPM
-Home regimen includes beta-jacy and reduced dose Eliquis
-Heart rate here has been WNL
#Benign Hypertension
-Home regimen includes amlodipine, beta-jacy, loop diuretic, doxazosin
-Stable, continue current meds and adjust as needed.
-Holding parameters to avoid hypotension / allow effective diuresis.
#NIDDM
-Stable, A1c 6.8%. Hold sulfonylurea. Continue Jardiance
-No known history of microvascular disease complication
-Follow glucose and cover with SSI as needed.
#COPD/ILD
#IMANI
#Chronic Hypoxemic Respiratory Insufficiency
-Home regimen includes DuoNebs, prednisone 10 mg daily, azithromycin 250 mg nightly
-Patient uses supplemental oxygen as needed/nightly
-Stable, continue usual neb regimen / inhaled medications.
#Hypothyroidism
-Unclear etiology, home regimen includes levothyroxine 175 mcg daily
-No signs or symptoms of abnormal thyroid function here
#Exocrine Pancreatic Insufficiency
-Unclear etiology, home regimen includes Creon with no
-Stable. Continue Creon AC
#Anemia of Chronic Disease
-Hgb slightly decreased from usual baseline, no reported bleeding issues.
-Trend CBC
Diet: Carb controlled, sodium and fluid restricted
DVT Prophylaxis: Eliquis
Code Status: DNR
Anticipated Discharge: 24 - 48 hours
Subjective/Interval History
-
Date of Service: April 11, 2025
Complains of pain in his wrists due to his recent gout flare. Otherwise feels fine, breathing on room air, swelling went down, below his dry weight
Objective Data
-
Labs:
Laboratory Results
04/11/25
05:17
WBC 22.3 H
Hgb 8.3 L
Hct 27.3 L
Plt Count 205
Sodium 139
Potassium 3.9
Chloride 103
Carbon Dioxide 32 H
BUN 47 H
Creatinine 1.4 H
Glucose 96
Calcium 8.2 L
Vital Signs:
Vital Signs
Temp Pulse Resp BP Pulse Ox
98.6 F 76 18 114/73 97
04/11/25 10:55 04/11/25 10:55 04/11/25 10:55 04/11/25 10:55 04/11/25 10:55
I&O
04/10/25 04/11/25 04/12/25
06:59 06:59 06:59
Intake Total 600 / 600 1440 / 1440
Output Total 200 / 200 600 / 600 500 / 500
Balance 400 / 400 840 / 840 -500 / -500
Review of Systems
-
All other systems: Reviewed and negative
Physical Exam
-
General: Well Developed, Well Nourished and No Apparent Distress
HEENT: Normocephalic and Atraumatic
Respiratory: Clear to Auscultation and Other (No wheezes, Rales or rhonchi )
Cardiac: Regular Rhythm, S1/S2 and Other (Mild pitting edema of bilateral feet, no gallop)
GI: Soft, Nontender, Nondistended and Normal Bowel Sounds
Musculoskeletal: No Clubbing and No Cyanosis
Skin: Warm and Dry
Neuro: Awake, Oriented and Nonfocal/Grossly Intact
Psych: Calm
[2025-04-11] MEDS: DICLOFENAC 1% TOPICAL GEL 2 GRAM TOPICAL (12:51)
--- NOTE | 2025-04-11 14:00 | W.PN.CARDCBS ---
Addendum entered and electronically signed by Stephen Alcaraz MD 04/11/25 17:18:
84-year-old man admitted March for 6 with acute on chronic HFpEF
PMH/PSH: HFpEF, PAF, LAD PCI May 2024, history of TAVR 2019, Medtronic pacemaker, COPD, hypertension, hyperlipidemia, diabetes, CKD, gout
Gouty symptoms are worse right wrist.
Current meds: Pulmicort, DuoNebs, amiodarone 200 mg every afternoon, apixaban 2.5 mg twice daily, atorvastatin 40 mg a day, Zithromax, donepezil 10 mg a day, doxazosin 3 mg at bedtime, glipizide 10 mg daily, Mucinex 600 twice daily, levothyroxine,
pancrelipase, pantoprazole, metoprolol ER 25 twice daily, prednisone 40 mg a day, sertraline 50 at bedtime, insulin, colchicine 0.6, furosemide 100 IV twice daily, metolazone 5 mg daily
117/67, pulse 67, afebrile, sats 98%, weight is 81 kg, down 1.2 kg, lungs are clear, systolic murmur, JVD okay, edema is markedly better
White count is 22.3, hemoglobin is 8.3, had been 9.0, BUN and creatinine are 47 and 1.4
Plan:
From a volume standpoint, he is much improved and probably close to dry weight. We will transition to torsemide 20 mg twice daily. Outpatient dose had been 30 and 20 mg. Will make metolazone 5 mg Friday. Previously metolazone
was 2.5 mg twice a week.
For gout, patient may require allopurinol ocean transportation intermediary. Will defer to hospitalist.
Patient may benefit from an increased cardiac output, will increase pacemaker base rate to 70
May need to increase Eliquis dose if creatinine remains less than 1.5.
I spoke with daughter at length about all of the above.
Okay for discharge planning from my standpoint.
Original Note:
Today's Communication / Plan
-
Continue to hold amlodipine at discharge
Transition to oral torsemide 20 mg with Zaroxolyn 5 mg Friday, Friday, Friday
Basic metabolic panel in 1 week
Impression / Plan
-
Primary Alteration Tailor Apprentice: Dr. Deana Palomino
Assessment:
Presentation with SOB on 04/05/25
Anasarca
FAHEEM on CKD
Concern for RUE cellulitis versus gout flare
Chronic HFpEF
Paroxysmal atrial fibrillation
Chronic Eliquis anticoagulation
CAD
s/p BLADIMIR to mid LAD 01/13/2020
s/p BLADIMIR to prox LAD 06/21/2024
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
MS/MR, mild to mod by echo 2023
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
COPD
Carotid stenosis
Hypertension
Hyperlipidemia
Hypothyroidism
Type 2 DM
Renal insufficiency
Frequent PVCs, NSVT
DNR code status
Echo 06/18/2024: EF 50 to 55%, stage II diastolic dysfunction, mild to moderate MS with peak/mean gradient 16/8 mmHg, moderate MR, severely dilated left atrium, status post number 26 mm TAVR with peak/mean gradients of 25/17 mmHg, trace AR, trace TR,
PAP 30 mmHg
ECHO 04/05/2025: EF 60 to 65%, no regional wall motion abnormalities noted, mild concentric LVH, moderate to severe MS with peak/mean gradients 26/13 mmHg, Fleming ROSARIO #26 TAVR with peak/mean gradients 37/22 mmHg, trace TR, PAP 50 to 55 mmHg
Plan:
-Patient presented 04/05/25 with SOB and anasarca after OP metolazone was held over the last 1.5 weeks.
-Weight down at least 11 pounds since admission with current weight of 178 pounds.
-Symptomatically improved and appears to be relatively euvolemic. Stop IV Lasix and transition to oral torsemide at 20 mg daily.
-Patient has had excellent response to metolazone. Would continue 5 mg Friday, Friday, Friday
-Creatinine improved throughout admission with diuresis. Peak of 1.8 on admission currently 1.4
-Needs BMP in 1 week
-discussed that likely worsening MS contributing to his symptoms, mod to severe by echo 04/05. will need to follow as OP and can discuss options for treatment if worsens (? [facility] candidacy)
-CHF education
-continue compression stockings/Tubigrip's.
-Device interrogated 04/05 with less than 0.1% A-fib burden. av paced on tele. continue amiodarone
-Medtronic rep contacted to increase base rate of pacemaker to 70 bpm. Currently he is pacing at 60.
-continue OP toprol, olivia cardharmeet. not felt to be candidate for stanley/arb given chronic renal insufficiency and relative hypotension. OP norvasc presently on hold. Would not discharged home on amlodipine. Could be restarted as outpatient if
needed
-continue plavix, eliquis given history of LAD PCI 05/2024 and paroxysmal atrial fibrillation.
-continue treatment of R hand gout flare per primary service with colchicine and prednisone per primary service
- Outpatient cardiology follow-up has been arranged. Stable for discharge
Progress Note - Alteration Tailor Apprentice
Subjective
Date of Service: April 11, 2025
Patient seen and examined. Sitting up on edge of bed. Reports he is eager to go home. States he feels significantly better his legs are less swollen and his breathing is back to baseline.
Objective
Labs:
04/11/25 05:17
04/11/25 05:17
Labs
Hgb 8.3 g/dL (13.0-18.0) L 04/11/25 05:17
Hct 27.3 % (39.0-52.0) L 04/11/25 05:17
Plt Count 205 10^3/uL (130-400) 04/11/25 05:17
Sodium 139 mmol/L (135-145) 04/11/25 05:17
Potassium 3.9 mmol/L (3.5-5.1) 04/11/25 05:17
BUN 47 mg/dl (9-20) H 04/11/25 05:17
Creatinine 1.4 mg/dL (0.7-1.3) H 04/11/25 05:17
Glucose 96 mg/dl (70-99) 04/11/25 05:17
Vital Signs and I&O:
Vital Signs
Temp Pulse Resp BP Pulse Ox
98.6 F 76 18 114/73 97
04/11/25 10:55 04/11/25 10:55 04/11/25 10:55 04/11/25 10:55 04/11/25 10:55
Vital Signs
Temp Pulse Resp BP Pulse Ox
98.6 F 76 18 114/73 97
04/11/25 10:55 04/11/25 10:55 04/11/25 10:55 04/11/25 10:55 04/11/25 10:55
Intake & Output
04/09/25 04/10/25 04/11/25 04/12/25
06:59 06:59 06:59 06:59
Intake Total 480 / 480 600 / 600 1440 / 1440
Output Total 300 / 300 200 / 200 600 / 600 500 / 500
Balance 180 / 180 400 / 400 840 / 840 -500 / -500
Physical Exam
Physical Exam
GEN: No distress, awake, Ox3
HEENT: supple, anicteric, mmm
LUNGS: CTA, no wheezes/rales
CV: Reg, S1/S2, 2/6 syst murmur, no rub or gallop
ABD: soft, BS+, NT/ND
EXT: +1 bilateral lower extremity edema
NEURO: Gross non-focal
SKIN: No rash, warm, dry, pink
[2025-04-11 15:20] VITALS: BP 110/64
--- NOTE | 2025-04-11 15:21 | VNURNOTE ---
Home Health Liaison met with patient at bedside to discuss [facility] nurse/therapy, visits, schedule and homebound status. Explained that visits at home would be 2-3 x per week to assess and teach medical management. Patient declined [facility] stating his
daughter is an TERRITORY SALES REPRESENTATIVE and checks on him frequently. He gave this author permission to speak w/his daughter. Called daughter Yolanda and explained our services. She is ok to hold off. She verbalized understanding that she can reach out to PCP after
DC if they change their mind about [facility].
No referral placed.
[2025-04-11] MEDS: DEMADEX 20 MG PO (15:58)
--- NOTE | 2025-04-11 16:44 | W.DCSUMMARY ---
Discharge Summary
Discharge Data
Date of Admission: 04/05/25
Date of Discharge: 04/11/25
-
Pending Results: No
Hospital Course
Discharging Physician :
Armen Del Toro
Disposition :
Home with home care
Primary care physician :
Unknown
Principal Discharge diagnosis :
Acute on chronic HFpEF/Resistant gout flare/FAHEEM on CKD III
Chronic Discharge diagnosis :
Coronary artery disease status posttreatment PCI twice the LAD
Paroxysmal atrial fibrillation, heart block s/p permanent pacemaker, on beta-jacy and reduced dose of Eliquis
Benign hypertension
Iar-pntgleb-cixxoqdvy diabetes mellitus stable A1c 6.8
COPD/ILD
IMANI
Hypothyroidism
Exocrine pancreatic insufficiency
Anemia of chronic disease
s/p TAVR with moderate bioprosthetic stenosis
Moderate mitral stenosis
Hospital Course :
1. Acute on Chronic HFpEF
Presentation with SOB on 04/05/25,Anasarca
Home regimen for chronic HFpEF included SGLT2i, torsemide/metolazone, beta-jacy
Responded well to metolazone therapy, continue every Friday along with oral torsemide 20 mg twice daily
Iron saturation low level <20%, was started on IV iron for 5 days per Ferric HF
Albumin 2.7, question if residual edema is mostly third spacing
Currently breathing on room air, still in positive fluid balance of 340, his weight is below his dry weight which in the past was 188 pounds
Weight down at least 11 pounds since admission, currently weighs 178 pounds
SpO2 goal 88 to 90%
[employer] rep contacted to increase base rate of pacemaker to 70 bpm
2.FAHEEM on CKD III
Secondary to cardiorenal syndrome, improved with IV diuresis
Creatinine improved throughout admission with diuresis. Peak of 1.8 on admission currently 1.4, baseline is 1.1-1.4
Repeat BMP in a week
3.Resistant gout flare
Differentials include gout (in context of IV diuretics and high uric acid) versus CPPD (due to joint distribution)
Was treated with IV antibiotics initially due to concerns for cellulitis, discontinued on 04/06
Was started on prednisone and colchicine with PRN oxy, mildly improved
Continue prednisone and colchicine, as needed oxycodone for pain for 5 more days
Plan for allopurinol 2 weeks after resolution
Expect improvement when off IV diuretic
Important imaging findings :
Right hand x-ray findings : 04/05/2025
There is no recent cortical fracture, dislocation or focal bony destructive process.
Some hypertrophic degenerative changes are seen throughout. There is a tiny sclerotic density within the distal aspect of the distal phalanx of the right middle finger most likely representing an incidental benign bone island.
No radiopaque soft tissue foreign body is seen.
IMPRESSION:
Degenerative changes.
Chest x-ray findings 04/05/2025
Lines and tubes: None.
Lungs: Prominent interstitial markings are seen bilaterally. No focal parenchymal consolidation is noted. No pleural effusion or pneumothorax.
Heart: Cardiac and mediastinal contours are within the limits of normal. Calcific atherosclerotic changes of the thoracic aortic arch are seen. TAVR is noted. Left-sided cardiac device is seen with intact wires in the right atrium and right
ventricle, unchanged.
Osseous structures: Visualized osseous structures are likely diffusely osteopenic.
IMPRESSION:
Prominent markings suggesting acute interstitial pulmonary edema or interstitial pneumonitis.
Echo 06/18/2024: EF 50 to 55%, stage II diastolic dysfunction, mild to moderate MS with peak/mean gradient 16/8 mmHg, moderate MR, severely dilated left atrium, status post number 26 mm TAVR with peak/mean gradients of 25/17 mmHg, trace AR, trace TR,
PAP 30 mmHg
ECHO 04/05/2025: EF 60 to 65%, no regional wall motion abnormalities noted, mild concentric LVH, moderate to severe MS with peak/mean gradients 26/13 mmHg, Fleming ROSARIO #26 TAVR with peak/mean gradients 37/22 mmHg, trace TR, PAP 50 to 55 mmHg
Discharge Plan
-
Patient Disposition: Home with Home Care
Discharge Diagnosis/Procedures: Acute on chronic HFpEF/Resistant gout flare/FAHEEM on CKD III
Condition: Fair
Diet: Low Cholesterol and Diabetic, Carb Controlled
Activity: As tolerated
Driving Restrictions: As prior to admission
Bathing Restrictions: OK to Shower
Specialty Instructions: Weigh Daily- Call MD for wt gain/loss 3 lbs overnight/5 lbs in 1 week
Activity Restrictions/Additional Instructions:
Wound Care Instructions Left forearm- Clean with normal saline, apply adaptic and dry dressing. Change Q72 hours and PRN
Sacal wound- keep covered with silicone foam. Change Q 72 hours and PRN if loose or soiled.
Follow up at wound care center call for an appointment.
Instructions: *DCA Heart Failure Instructions
Referrals:
Terri Miller PA-C [Specified Professional Personl] - 04/13/25 4:00 pm (You have a cardiology follow-up appointment at the [place] office with Dr. Leblanc's physician family services assistant, Terri. Please call with questions)
UNKNOWN,NO INTERVIEW [Family Provider] - in less than 1 week
Additional Discharge Medication Instructions: Continue 40mg steroids and colchicine for 5 more days ,then switch back to home dose of steroids
Switch to Torsemide 20mg twice daily and Metolazone 5mg MoWeFr as per cards
Prescriptions:
New
torsemide 20 mg Tablet
20 mg PO BID@0800,1600 14 Days Qty: 28 0RF
metolazone 5 mg Tablet
5 mg PO MoWeFr@0730 14 Days Qty: 6 0RF
colchicine 0.6 mg Tablet
0.6 mg PO DAILY 14 Days Qty: 14 0RF
diclofenac sodium 1 % Gel
0 g topical QID 14 Days Qty: 1 0RF
prednisone 20 mg Tablet
40 mg PO DAILY 14 Days Qty: 28 0RF
Continued
levothyroxine 175 MCG tablet
175 mcg PO DAILY
cyanocobalamin (vitamin B-12) 1,000 MCG tablet
1,000 mcg PO QPM
sertraline 50 MG tablet
50 mg PO HS
pantoprazole 40 MG tablet,delayed release (DR/EC)
40 mg PO QPM
budesonide 0.5 MG/2 ML suspension for nebulization
0.5 mg inhalation R BID 30 Days Qty: 2 0RF
magnesium oxide 400 MG tablet
400 mg PO QPM
Jardiance 10 MG tablet
10 mg PO DAILY
acetaminophen [Tylenol Extra Strength] 500 MG tablet
1,000 mg PO TIDPRN PRN (Reason: mild pain)
prednisone 10 mg Tablet
10 mg PO DAILY
ipratropium-albuterol 0.5 mg-3 mg(2.5 mg base)/3 mL Solution For Nebulization
3 ml INHALATION R TID
azithromycin 250 mg Tablet
250 mg PO QPM
donepezil 10 mg Tablet
10 mg PO HS
glimepiride 1 mg Tablet
1 mg PO DAILY
benzonatate 100 mg Capsule
100 mg PO DAILYPRN PRN (Reason: cough)
simethicone 80 mg Tablet,Chewable
80 mg PO DAILYPRN PRN (Reason: gas/bloating)
Creon 24,000-76,000 -120,000 unit Capsule,Delayed Release(Dr/Ec)
1 cap PO AC
PreserVision AREDS 2,148 mcg-113 mg-45 mg-17.4mg Tablet
1 tab PO BID
calcium-magnesium 500 mg/40 mg tablet
1 tab PO BID
insulin aspart U-100 [Novolog FlexPen U-100 Insulin] 100 unit/mL (3 mL) insulin pen
0 sliding scale dose SC AC
cholecalciferol (vitamin D3) 25 mcg (1,000 unit) Tablet
25 mcg PO QPM
doxazosin 1 mg Tablet
3 mg PO HS 30 Days Qty: 90 0RF
clopidogrel 75 mg Tablet
75 mg PO DAILY 30 Days Qty: 30 0RF
Eliquis 2.5 mg Tablet
2.5 mg PO BID 30 Days Qty: 60 0RF
atorvastatin [Lipitor] 40 mg Tablet
40 mg PO HS
amiodarone 200 mg Tablet
200 mg PO .DINNER
guaifenesin [Mucinex] 600 mg Tablet Extended Release 12hr
600 mg PO BID
potassium chloride 20 mEq Tablet Extended Release
20 meq PO DAILY
amlodipine 10 MG tablet
5 mg PO DAILY
metoprolol succinate 25 mg tablet extended release 24 hr
25 mg PO BID
Discontinued
metolazone 2.5 mg Tablet
2.5 mg PO .WED & SAT. AM
torsemide 20 mg Tablet
20 mg PO .DINNER
torsemide 20 mg tablet
30 mg PO DAILY
Discharge Orders:
Discharge Patient (As Directed); Ordered 04/11/25
Ordered By: Alyssa Peterson
Discharge Date and Time
Print Language: CZECH
[2025-04-11 16:47] LABS: Glucose - Point of Care 284 mg/dl (70-99)
--- NOTE | 2025-04-12 10:03 | W.HF.CON ---
Heart Failure
- LV Function
Left ventricular function study result: LV Ejection fraction >/= 50%
Ejection Fraction Percentage: 60-65
- ARNI
Patient already on ARNI: No
Heart Failure ARNI Not Indicated: LV Ejection Fraction >/= 40%
- ACEI/ARB
Patient already on ACEI/ARB: No
Heart Failure ACEI/ARB Not Indicated: LV Ejection Fraction > 40%
- Beta Juan
Patient already on Evidence Based Beta Juan: Yes
- Mineralocorticord Receptor Antagonist
Heart Failure MRA Not Indicated: LV Ejection Fraction > 40%
- SGLT-2 Inhibitor
Patient already on SGLT-2 Inhibitor: Yes
- Afib Anticoagulation
Patient already on Anticoagulation for Afib: Yes
- NYHA CHF Classification
NYHA CHF Classification Level: Class III - Symptoms w/ min exertion, interferes w/ nml daily activity
- ACC/AHA Stage
ACC/AHA Stage: Stage C: Symptomatic Heart Failure
== END 2025-04-11 17:51 | disposition home health service (06) | DRG 291 ==
LOC: 3 WEST ACU 04:35
PROVIDERS: Internal Medicine Cardiovascular Disease; Student in an Organized Health Care Education/Training Program; ADMITTING PHYSICIAN Hospitalist; ATTENDING PHYSICIAN Internal Medicine; CONSULT PHYSICIAN Orthopaedic Surgery; EMERGENCY PHYSICIAN Emergency Medicine; OTHER PHYSICIAN Internal Medicine Cardiovascular Disease
DX: I13.0 Hypertensive heart and chronic kidney disease with heart failure and stage 1 through stage 4 chronic kidney disease, or unspecified chronic kidney disease (principal); I50.33 Acute on chronic diastolic (congestive) heart failure; I47.20 Ventricular tachycardia, unspecified; N17.9 Acute kidney failure, unspecified; J84.9 Interstitial pulmonary disease, unspecified; L03.113 Cellulitis of right upper limb; Z66 Do not resuscitate; I48.0 Paroxysmal atrial fibrillation; I25.10 Atherosclerotic heart disease of native coronary artery without angina pectoris; N18.30 Chronic kidney disease, stage 3 unspecified; E03.9 Hypothyroidism, unspecified; D63.1 Anemia in chronic kidney disease; F32.A Depression, unspecified; F41.9 Anxiety disorder, unspecified; G47.33 Obstructive sleep apnea (adult) (pediatric); M15.9 Polyosteoarthritis, unspecified; E11.22 Type 2 diabetes mellitus with diabetic chronic kidney disease; E78.00 Pure hypercholesterolemia, unspecified; R09.02 Hypoxemia; M11.841 Other specified crystal arthropathies, right hand; L89.151 Pressure ulcer of sacral region, stage 1; I05.0 Rheumatic mitral stenosis; I49.3 Ventricular premature depolarization; I65.29 Occlusion and stenosis of unspecified carotid artery; J44.9 Chronic obstructive pulmonary disease, unspecified; K52.9 Noninfective gastroenteritis and colitis, unspecified; K74.60 Unspecified cirrhosis of liver; K86.89 Other specified diseases of pancreas; Z95.5 Presence of coronary angioplasty implant and graft; Z95.2 Presence of prosthetic heart valve; Z95.0 Presence of cardiac pacemaker; Z87.891 Personal history of nicotine dependence; Z79.899 Other long term (current) drug therapy; Z99.81 Dependence on supplemental oxygen; Z79.84 Long term (current) use of oral hypoglycemic drugs; Z79.890 Hormone replacement therapy; Z79.02 Long term (current) use of antithrombotics/antiplatelets; Z79.52 Long term (current) use of systemic steroids; Z79.01 Long term (current) use of anticoagulants; Z79.4 Long term (current) use of insulin; Z79.51 Long term (current) use of inhaled steroids
CPT/HCPCS: 71045; 73130; 80048; 80053; 82040; 82607; 82728; 82962; 83036; 83540; 83550; 83735; 83880; 84443; 84484; 84550; 85025; 85027; 85652; 87040; 93005; 93306; 94640; 96374; 96375; 97116; 97530; 99285; J2916

== ENCOUNTER → 2025-05-12 13:13 | Outpatient (REF) | payer OTHER, SELFPAY | LOC: RAD 13:13 | PROVIDERS: ATTENDING PHYSICIAN Internal Medicine | DX: M54.50 Low back pain, unspecified (principal) | CPT/HCPCS: 72110 ==

== ENCOUNTER 2025-07-15 19:15 | Inpatient (IN) | payer OTHER, SELFPAY ==
[2025-07-15 15:53] VITALS: BP 111/57
--- NOTE | 2025-07-15 16:40 | ED.GENMED ---
History of Present Illness
General
Chief Complaint: Swelling
Source: patient
Exam Limitations: none
Time Seen by Provider: 07/15/25 16:14
History of Present Illness
History of Present Illness:
85 year old male presents with increased work of breathing and leg swelling. Was seen 4 days ago by cardiology and was advised to come to the hospital then for his volume overload but decided not to until today when his breathing declined. He also
notes ongoing diarrhea. He also notes ongoing bilateral lower extremity pain secondary to sciatica. No fevers. No other complaints he was admitted for CHF in March of this year. He an echocardiogram which showed an ejection fraction of 60 to 65%
Past History
Past History
ED Past Medical History: CAD, CHF, COPD, HTN, Hypercholesterolemia, NIDDM, Valvular disease, Hypothyroidism, Psychiatric (Anxiety, depression) and Other (PNA, Cirrhosis of the liver)
ED Past Surgical History: Cardiac (Pacemaker, TAVR, Stent X 1)
Social History
Tobacco: Former smoker
Alcohol: Former
Personal:
Living: with family
Employment: Retired
Family History
Family History: Other (Noncontributory)
Phy Exam
Physical Exam
Physical Exam:
General: Chronically ill-appearing male with slight increased work of breathing
HEENT normocephalic atraumatic
Heart: Regular rate and rhythm
Lungs: No obvious Rales
Extremities: Diffuse pitting edema bilateral lower extremities left upper extremity swollen and edematous
Skin is warm
Scores
Heart Failure Risk
Heart Failure Risk Score: Not Applicable
Course
Orders/Labs/Results
Orders:
Orders
07/15/25 16:07
EKG [Electrocardiogram (*1)] Urgent
Reason for Study: Chest Pain
07/15/25 16:08
EKG- Treatment ONCE
07/15/25 16:58
Complete Blood Count/With Diff Urgent
Comprehensive Metabolic Panel Urgent
NT-proBNP Urgent
Troponin I Urgent
07/15/25 17:43
CR Chest - 2 Views Urgent
Comment:
Reason For Exam: sob
07/15/25 17:44
Dextrose 50%-Water [Dextrose 50% Syringe] 25 grams IV NOW STA
07/15/25 18:04
Furosemide [Lasix] 40 mg IV NOW STA
Abnormal Lab Results
07/15/25
16:58
WBC 16.3 H 10^3/uL
(4.8-10.8)
RBC 2.98 L 10^6/uL
(4.70-6.10)
Hgb 8.7 L g/dL
(13.0-18.0)
Hct 28.2 L %
(39.0-52.0)
MCV 94.6 H fL
(80.0-94.0)
MCHC 30.9 L g/dL
(33.0-37.0)
RDW 17.9 H %
(11.5-14.5)
MPV 11.6 H fL
(7.4-10.4)
Abs Immat Gran (auto) 0.2 H 10^3/uL
(0-0.05)
Absolute Neuts (auto) 14.8 H 10^3/uL
(1.4-6.5)
Absolute Lymphs (auto) 0.5 L 10^3/uL
(1.2-3.4)
Absolute Monos (auto) 0.7 H 10^3/uL
(0.1-0.6)
Immature Gran % 0.9 H %
(0-0.5)
Neutrophils % 90.9 H %
(42.2-75.2)
Lymphocytes % 3.1 L %
(20.5-51.1)
Potassium 5.4 H mmol/L
(3.5-5.1)
Chloride 114 H mmol/L
(98-107)
Carbon Dioxide 20 L mmol/L
(22-30)
BUN 65 H mg/dl
(9-20)
Creatinine 2.3 H mg/dL
(0.7-1.3)
Glucose 38 L* mg/dl
(70-99)
Calcium 7.7 L mg/dl
(8.4-10.2)
Total Protein 4.9 L g/dl
(6.3-8.2)
Albumin 2.8 L g/dl
(3.5-5.0)
07/15/25 16:58
07/15/25 16:58
Vital Signs
Initial and Last Documented VS:
Initial Vital Signs
Temp Pulse Resp BP Pulse Ox
97.9 F 88 18 111/57 99
07/15/25 15:53 07/15/25 15:53 07/15/25 15:53 07/15/25 15:53 07/15/25 15:53
Last Documented Vital Signs
Temp Pulse Resp BP Pulse Ox
97.9 F 88 18 111/57 99
07/15/25 15:53 07/15/25 15:53 07/15/25 15:53 07/15/25 15:53 07/15/25 16:44
MDM/Problems Addressed
Differential Diagnosis Includes:
Patient with leg swelling and shortness of breath. On exam he is volume overloaded. He has significant pitting edema bilateral lower extremities. I suspect acute on chronic heart failure. Unlikely to be thrombotic event as he is anticoagulated.
No fever. He also has ongoing loose stool and chronic pain down both legs which is contributing towards his mobility issues. Will check labs and x-ray.
*Pulse Oximetry
SaO2: 99
Oxygen Mode of Delivery: Room air
Patient hypoxic: no
*Critical Care Note
Total Time (30-74mins, 75-104mins- exclusive of procedures): Not Applicable
Update Note
Update Note:
BNP elevated. Acute kidney injury with creatinine 2.3. Chest x-ray shows mild pulmonary edema. Suspect CHF and volume overload. 40 of Lasix ordered. Admitted to hospital
ED Attending Note
-
Portions of this chart may have been created with voice recognition software.� Occasional wrong word or��sound alike� substitutions may have occurred due to the inherent limitations of voice recognition software.
Discharge Plan
Departure
Patient Disposition: Admit
Date of Disposition: 07/15/25
Time of Disposition: 18:06
Presentation/result/management discussed w/ accepting MD/DO: Hospitalist
Discharge Problem:
CHF (congestive heart failure)
Prescriptions:
No Action
levothyroxine 175 MCG tablet
175 mcg PO DAILY
cyanocobalamin (vitamin B-12) 1,000 MCG tablet
1,000 mcg PO QPM
sertraline 50 MG tablet
50 mg PO HS
pantoprazole 40 MG tablet,delayed release (DR/EC)
40 mg PO QPM
budesonide 0.5 MG/2 ML suspension for nebulization
0.5 mg inhalation R BID 30 Days Qty: 2 0RF
magnesium oxide 400 MG tablet
400 mg PO QPM
Jardiance 10 MG tablet
10 mg PO DAILY
prednisone 10 mg Tablet
10 mg PO DAILY
ipratropium-albuterol 0.5 mg-3 mg(2.5 mg base)/3 mL Solution For Nebulization
3 ml INHALATION R TID
azithromycin 250 mg Tablet
250 mg PO QPM
donepezil 10 mg Tablet
10 mg PO HS
glimepiride 1 mg Tablet
1 mg PO DAILY
PreserVision AREDS 2,148 mcg-113 mg-45 mg-17.4mg Tablet
1 tab PO BID
insulin aspart U-100 [Novolog FlexPen U-100 Insulin] 100 unit/mL (3 mL) insulin pen
0 sliding scale dose SC AC PRN (Reason: Diabetes)
cholecalciferol (vitamin D3) 25 mcg (1,000 unit) Tablet
50 mcg PO QPM
doxazosin 1 mg Tablet
3 mg PO HS 30 Days Qty: 90 0RF
Eliquis 2.5 mg Tablet
2.5 mg PO BID 30 Days Qty: 60 0RF
atorvastatin [Lipitor] 40 mg Tablet
40 mg PO HS
amiodarone 200 mg Tablet
200 mg PO DAILY
potassium chloride 20 mEq Tablet Extended Release
20 meq PO QPM
amlodipine 10 MG tablet
5 mg PO DAILY
metoprolol succinate 25 mg tablet extended release 24 hr
25 mg PO BID
torsemide 20 mg Tablet
20 mg PO BID@0800,1600 14 Days Qty: 28 0RF
cephalexin 500 mg Capsule
500 mg PO BID
Rx Instructions:
for 10 days starting 07/10/25
metolazone 5 mg tablet
5 mg PO WEFR
Referrals:
Dexter Meng MD [Family Provider, Internal Medicine]
Discharge Date and Time
Print Language: PORTUGUESE
[2025-07-15 17:05] LABS: Hematocrit 28.2 % (39.0-52.0); Hemoglobin 8.7 g/dL (13.0-18.0); Mean Corp Hgb Conc. 30.9 g/dL (33.0-37.0); Mean Corpuscular Volume 94.6 fL (80.0-94.0); Nucleated Red Blood Cells % 0 % (-); Platelet Count 147 10^3/uL (130-400); Red Cell Dist. Width 17.9 % (11.5-14.5)
[2025-07-15 17:33] LABS: Troponin I 0.020 ng/ml
[2025-07-15 17:41] LABS: ALT (SGPT) 27 U/L (0-50); AST (SGOT) 30 U/L (17-59); Albumin 2.8 g/dl (3.5-5.0); Alkaline Phosphatase 102 U/L (38-126); Blood Urea Nitrogen 65 mg/dl (9-20); Calcium 7.7 mg/dl (8.4-10.2); Carbon Dioxide 20 mmol/L (22-30); Chloride 114 mmol/L (98-107); Glucose 38 mg/dl (70-99); Potassium 5.4 mmol/L (3.5-5.1); Sodium 139 mmol/L (135-145); Total Protein 4.9 g/dl (6.3-8.2); eGFR 27.15
--- NOTE | 2025-07-15 18:09 | HPS.HSE ---
Addendum entered and electronically signed by EMILY Wang 07/15/25 20:51:
DVT prophylaxis:eliquis.
Original Note:
Family Physician
-
Family Physician: Dexter Meng
Chief Complaint
-
edema
History of Present Illness
85 year old male with past medical history for coronary artery disease, congestive heart failure, COPD, hypertension, hypercholesterolemia, NIDDM, valvular disease, hypothyroidism, anxiety, cirrhosis of the liver presents with b/l LE edema which is
progressively getting. as per daughter, multiple fall due to the edema of the legs. patient also complaining of worsening sciatica pain.denied sob. denied chest pain, denied HERNANDEZ, dizzy or syncope. denied abdominal pain but noted worsening of
diarrhea. denied dysuria or hematuria. patient was noted to bilateral skin tear from frequent fall. he was started on abx for the skin tear and cellulitis of right arm. patient Was seen 4 days ago by cardiology and was advised to come to the
hospital then for his volume overload but decided not to until today when his swelling got worse. denied fever, chills, cough congestion. his Plavix was stopped on Friday due to the bleeding of right UE wound.
Patient received a dose of Lasix in the ER for CHF exacerbation. Patient also received dextrose for hypoglycemia. Admitting for further management
Medical History
Past Medical History
Past Medical History: Reports Other
Additional Past Medical History:
CHF, hyperlipidemia, aortic valve stenosis, paroxysmal A-fib, coronary artery disease, interstitial lung disease, left carotid stenosis, right subclavian stenosis, hypothyroidism, mitral valve regurgitation, COPD, right bundle branch block,
pancreatic insufficiency, peripheral vascular disease
Past Surgical History: Reports Other
Additional Past Surgical History:
Right cataract surgery, 200 to #18 allograft, colon resection, LAD stent, Tylenol, pacemaker, total hip
Social History
Tobacco: Former Smoker
Alcohol: Former
Drug: None
Personal:
Living: With Family
Family History
Family History: Not pertinent
Allergies / Home Medications
Allergies reflects when Allergies were last updated in [facility].
Home Medications with original date entered in [facility]
Allergy/Medication List:
Allergies
Allergy/AdvReac Type Severity Reaction Status Date / Time
No Known Allergies Allergy Verified 04/05/25 00:35
Home Medications
cyanocobalamin (vitamin B-12) 1,000 mcg tablet 1,000 mcg PO QPM Supplement 01/13/20
levothyroxine 175 mcg tablet 175 mcg PO DAILY Thyroid 01/13/20
sertraline 50 mg tablet 50 mg PO HS Mental Health/Anxiety 01/13/20
pantoprazole 40 mg tablet,delayed release 40 mg PO QPM Gastrointestinal issue 05/15/20
budesonide 0.5 mg/2 mL suspension for nebulization 0.5 mg (2 mL) inhalation R BID 30 days ##2 05/07/21
magnesium oxide 400 mg PO QPM Supplement 03/15/22
empagliflozin 10 mg tablet (Jardiance) 10 mg PO DAILY Diabetes 04/10/22
azithromycin 250 mg tablet 250 mg PO QPM Infection 05/25/24
donepezil 10 mg tablet 10 mg PO HS Mental Health/Anxiety 05/25/24
glimepiride 1 mg tablet 1 mg PO DAILY Diabetes 05/25/24
ipratropium 0.5 mg-albuterol 3 mg (2.5 mg base)/3 mL nebulization soln 3 ml inhalation R TID Lung/Breathing Issues 05/25/24
prednisone 10 mg tablet 10 mg PO DAILY Anti-Inflammatory 05/25/24
vitamins A,C,H-rxpc-inrjmg 2,148 mcg-113 mg-45 mg-17.4 mg tablet (PreserVision AREDS) 1 tab PO BID Supplement 05/25/24
cholecalciferol (vitamin D3) 25 mcg (1,000 unit) tablet 50 mcg PO QPM Supplement 06/17/24
insulin aspart U-100 100 unit/mL (3 mL) subcutaneous pen (Novolog FlexPen U-100 Insulin aspart) 0 sliding scale dose SC AC PRN Diabetes 06/17/24
apixaban 2.5 mg tablet (Eliquis) 2.5 mg PO BID 30 days #60 tabs 06/22/24
doxazosin 1 mg tablet 3 mg (3 x 1 mg) PO HS 30 days #90 tabs 06/22/24
amiodarone 200 mg tablet 200 mg PO DAILY AFIB 04/05/25
amlodipine 10 mg tablet 5 mg PO DAILY Blood pressure 04/05/25
atorvastatin 40 mg tablet (Lipitor) 40 mg PO HS High Cholesterol 04/05/25
metoprolol succinate 25 mg tablet,extended release 24 hr 25 mg PO BID Blood Pressure 04/05/25
potassium chloride 20 mEq tablet,extended release 20 meq PO QPM Supplement 04/05/25
torsemide 20 mg tablet 20 mg PO BID@0800,1600 14 days #28 tabs 04/11/25
cephalexin 500 mg capsule 500 mg PO BID 07/15/25
hydrocodone 5 mg-acetaminophen 325 mg tablet 1 tab PO BIDPRN PRN severe pains 07/15/25
jvynye-rlrqbphr-ihfygha 24,000-76,000-120,000 unit capsule,delayed rel (Creon) 1 cap PO AC 07/15/25
metolazone 5 mg tablet 5 mg PO WEFR 07/15/25
Review of Systems
-
Constitutional: Reports No Symptoms
EENT: Reports No Symptoms
Respiratory: Reports No Symptoms
Cardiac: Reports No Symptoms
Abdomen/GI: Reports Diarrhea
: Reports No Symptoms
Musculoskeletal: Reports Edema (Bilateral lower extremities and upper extremities edema) and Other (Left lower extremities pain)
Skin: Reports No Symptoms
Neurological: Reports No Symptoms
Endocrine: Reports No Symptoms
Hematologic/Lymphatic: Reports No Symptoms
Psych: Reports No Symptoms
Physical Exam
Vital Signs
Vital Signs
Temp Pulse Resp BP Pulse Ox
97.9 F 88 18 111/57 99
07/15/25 15:53 07/15/25 15:53 07/15/25 15:53 07/15/25 15:53 07/15/25 16:44
Physical Exam
General: Well Developed, Well Nourished and No Apparent Distress
HEENT: NormoCephalic, Moist mucous membranes and Atraumatic
Respiratory: Clear
Cardiac: S1/S2 and Regular Rhythm; No Murmur or Rub
GI: Soft, Non Tender, Non Distended and Normal Bowel Sounds; No Organomegaly
Rectal: Deferred by Provider
Musculoskeletal: No Clubbing, No Cyanosis and Other (Bilateral lower extremities and upper extremities edema)
Skin: No Rash
Neuro: AO x 3 and Nonfocal/grossly intact
Psych: Calm
Laboratory Results
-
07/15/25 16:58
07/15/25 16:58
Laboratory Results
Total Bilirubin 0.3 mg/dl (0.2-1.3) 07/15/25 16:58
AST 30 U/L (17-59) 07/15/25 16:58
ALT 27 U/L (0-50) 07/15/25 16:58
Alkaline Phosphatase 102 U/L (38-126) 07/15/25 16:58
Troponin I 0.020 ng/ml 07/15/25 16:58
Data Reviewed
-
Lab Data: Labs Reviewed by me
Impression/Plan
-
# Acute on chronic CHF exacerbation with preserved EF
# History of aortic stenosis status post TAVR with moderate bioprosthetic stenosis/moderate mitral stenosis
- Diuretics continued
- Strict DESTINY, daily weight, fluid restriction
- Cardiology consulted
- Chest x-ray pending
- BNP 6210
# Acute kidney injury on CKD stage III/ hyperkalemia likely from fluid overload
- Creatinine 2.3, K5.4
- Diuretics continued
-Hold potassium
- bmp in a.m.
# Bilateral upper arm skin tear/left lower extremities wound
- Wound care consulted
- Cephalexin for now continued
- WBC 16.3
- Patient is afebrile
- Continue to monitor
# Ambulatory dysfunction'
- PT/OT consult
# Anemia of chronic disease
- Hemoglobin stable at 8.7
-No active bleeding, continue to monitor
# Hypoglycemia/type 2 diabetes
-Blood sugar 38
- Patient received dextrose in ER
- Sliding scale continue
- Hold glimepiride, Jardiance
# Chronic sciatica pain
- Hydrocodone continued
#CAD s/p PCI x 2 to LAD
#Paroxysmal Atrial Fibrillation
#Heart Block s/p PPM
- Amio and Eliquis, metoprolol continued
#Benign Hypertension
- Norvasc, doxazosin continued
#COPD/ILD
#IMANI
#Chronic Hypoxemic Respiratory Insufficiency
-Home regimen includes DuoNebs, prednisone 10 mg daily, azithromycin 250 mg nightly
-Patient uses supplemental oxygen as needed/nightly
-Stable, continue usual neb regimen / inhaled medications.
#Hypothyroidism
-Unclear etiology, home regimen includes levothyroxine 175 mcg daily
#Exocrine Pancreatic Insufficiency
-Unclear etiology, home regimen includes Creon with no
-Stable. Continue Creon
# Anxiety
- Aricept, sertraline continued
#Diet:cholesterol
#DVT Prophylaxis: heparin sq
#Code Status: DNR
[2025-07-15] MEDS: DEXTROSE 50% SYRINGE 25 GRAMS IV (18:19)
[2025-07-15 18:24] VITALS: BP 98/55
[2025-07-15] MEDS: LASIX 40 MG IV (18:35)
[2025-07-15 18:40] LABS: Glucose - Point of Care 198 mg/dl (70-99)
[2025-07-15 19:00] VITALS: BP 129/54
--- NOTE | 2025-07-15 19:37 | W.PN.UPDATE ---
Update Note
Progress Note Update
This note serves as an addendum to the H&P by power saw operator Mattie HERRERA
HPI
85M HX CAD, HX chr HFpEF, Valvular heart dz ( moderate/ severe MS, TAVR) CAD, COPD, HTN, T2 DM, hypothyroidism, Liver cirrhosis seen at ER:
- progressively worse b/l LE edema
- multiple fall due to the edema of the legs.
- worsening sciatica pain.
- bilateral skin tear from frequent fall.
- on abx for the skin tear and cellulitis of right arm.
- seen 4 days ago by cardiology and was advised to come to the hospita for volume overload but he declined
- Plavix was stopped on Friday due to the bleeding of right UE wound.
ROS:
denied sob, CP, HERNANDEZ, dizzy or syncope.
denied abdominal pain but noted worsening of diarrhea.
denied dysuria or hematuria.patient
denied fever, chills, cough congestion.
Patient received a dose of Lasix in the ER for CHF exacerbation. Patient also received dextrose for hypoglycemia. Admitting for further management
Relevant VS
Temp Pulse Resp BP Pulse Ox
97.9 F 73 19 129/54 99
07/15/25 15:53 07/15/25 19:00 07/15/25 19:00 07/15/25 19:00 07/15/25 16:44
PE
Gen: NAD
HEENT: atraumatic
Neck: supple
Lungs: CTA
Cor: RRR S1 S2
Abdomen:�Soft, Non Tender, Non Distended aCNS:
MS: Bilateral lower extremities and upper extremities edema
Psych: appropriate
Relevant data�
07/15/25 07/15/25
16:58 18:38
WBC 16.3 H
RBC 2.98 L
Hgb 8.7 L
Hct 28.2 L
MCV 94.6 H
MCHC 30.9 L
RDW 17.9 H
MPV 11.6 H
Abs Immat Gran (auto) 0.2 H
Absolute Neuts (auto) 14.8 H
Absolute Lymphs (auto) 0.5 L
Absolute Monos (auto) 0.7 H
Immature Gran % 0.9 H
Neutrophils % 90.9 H
Lymphocytes % 3.1 L
Potassium 5.4 H
Chloride 114 H
Carbon Dioxide 20 L
BUN 65 H
Creatinine 2.3 H
Glucose 38 L*
Calcium 7.7 L
Total Protein 4.9 L
Albumin 2.8 L
POC Glucose 198 H
04/05/25 TTE
LVEF 60-65
Moderate to severe mitral stenosis.
Normal right ventricular systolic function.
TAVR. Fleming Priyanka 26.
ASSESSMENT & PLAN
Acute on chronic HFpEF flare
HX aortic stenosis s/p TAVR with moderate bioprosthetic stenosis
Moderate MS
- pro BNP 6210
- IV Lasix 40 BID
- Strict IO, daily weight, fluid restriction
- CXR pending
- [facility] consulted
FAHEEM due to Cardiorenal syndrome
HX CKD3
Hyperkalemia due to FAHEEM
- Creatinine 2.3, K5.4
- Diuretics continued
- Hold potassium supplement
Paroxysmal AF
HX Hi grade AVB /p PPM
- Amiodarone and Eliquis, metoprolol continued
Benign Hypertension
- Norvasc, doxazosin continued
Anemia of chronic disease
- Hgb stable at 8.7
- No active bleeding
Bilateral upper arm skin tear
left lower extremities small open wound
Lt UEx chr edema
- WBC 16.3
- Wound care consulted
- PO Cephalexin to cont.
Ambulatory dysfunction'
- PT/OT consult
Hypoglycemia
T2DM
- BG 38
- Hold glimepiride, Jardiance
- ISS low
Chronic sciatica pain
- Hydrocodone continued
HX CAD s/p PCI x 2 to LAD
COPD/ILD HX
IMANI HX
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
-Home regimen include Neb inhaled medications.
Hypothyroidism
-Unclear etiology, home regimen includes levothyroxine 175 mcg daily
Exocrine Pancreatic Insufficiency
-Unclear etiology, home regimen includes Creon with no
-Stable
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
Anxiety
HX cognitive disorder Mild DAVID vs MCI
- Aricept, sertraline continued
DVT Px: SQH
Code: DNR
IP TLM
[2025-07-15 20:00] VITALS: BP 128/57
--- NOTE | 2025-07-15 20:23 | PTCARENOTE ---
patient arrived from ED via stretcher. Patient a pullover from stretcher to bed. Patient AAOx3, able to make needs known.
[2025-07-15 20:27] VITALS: BP 129/66; BMI 26.8
[2025-07-15 20:37] VITALS: BMI 26.0
[2025-07-15] MEDS: PULMICORT 0.5 MG INH (21:01)
[2025-07-15] MEDS: DUONEB 3 ML INH (21:01)
[2025-07-15] MEDS: ZOLOFT 50 MG PO (21:18)
[2025-07-15] MEDS: OCUVITE SOFTGEL 1 CAP PO (21:18)
[2025-07-15] MEDS: TOPROL XL 25 MG PO (21:18)
[2025-07-15] MEDS: KEFLEX 500 MG PO (21:19)
[2025-07-15] MEDS: ELIQUIS 2.5 MG PO (21:19)
[2025-07-15] MEDS: LIPITOR 40 MG PO (21:19)
[2025-07-15] MEDS: CARDURA 3 MG PO (21:19)
[2025-07-15] MEDS: ARICEPT 10 MG PO (21:19)
[2025-07-15] MEDS: NORCO 5/325 1 TABLET PO (21:45)
[2025-07-15 21:50] LABS: Glucose - Point of Care 119 mg/dl (70-99)
[2025-07-15 23:10] VITALS: BP 112/41
[2025-07-16] VITALS (8 sets, daily range): BP systolic 94–116; BP diastolic 44–72; PULSE 87; BMI 26.0
[2025-07-16] MEDS: SYNTHROID 175 MCG PO (05:00)
[2025-07-16] MEDS: NORCO 5/325 1 TABLET PO ×2 (05:05→22:15)
[2025-07-16] MEDS: DUONEB 3 ML INH ×3 (07:27→18:17)
[2025-07-16] MEDS: PULMICORT 0.5 MG INH ×2 (07:46→18:17)
[2025-07-16] MEDS: NORVASC 5 MG PO (08:29)
[2025-07-16] MEDS: ELIQUIS 2.5 MG PO ×2 (08:29→19:30)
[2025-07-16] MEDS: OCUVITE SOFTGEL 1 CAP PO ×2 (08:29→19:30)
[2025-07-16] MEDS: PACERONE 200 MG PO (08:29)
[2025-07-16] MEDS: KEFLEX 500 MG PO ×2 (08:29→19:30)
[2025-07-16] MEDS: ZENPEP DELAYED RELEASE CAPSULE 1 CAPSULE PO ×3 (08:30→17:10)
[2025-07-16] MEDS: DELTASONE 10 MG PO (08:30)
[2025-07-16] MEDS: LASIX 40 MG IV ×2 (08:30→12:19)
[2025-07-16] MEDS: TOPROL XL PO (08:35)
--- NOTE | 2025-07-16 09:30 | CON.CAR ---
Consultation
Consultation Request
Date/Time Consultation Requested: 07/15/25
Date/Time Consultation Performed: 07/16/25
Requesting Provider: Jad
Performing Provider: Casey
Reason for Consultation: CHF
Medical History
-
Chief Complaint: weight gain, edema
History of Present Illness:
85-year-old man past medical history of heart failure preserved ejection fraction who has been experiencing worsening peripheral edema over the last 1 to 2 weeks. He is noted swelling in the left upper extremity as well as skin tears and
ulcerations on the lower extremities. Was evaluated in our office earlier this week 07/11 and was recommended to present to the ER for admission, but declined.
Tells me his breathing has been comfortable and is not requiring supplemental oxygen. Of note he is on nocturnal home O2.
Overall he feels his weight has been relatively stable around 170 pounds however he has been experiencing worsening edema. With concern for cellulitis he was started on antibiotics for his ulcerated skin lesions.
PMHx/PSHx:
Chronic HFpEF
Paroxysmal atrial fibrillation
Chronic Eliquis anticoagulation
CAD
s/p BLADIMIR to mid LAD 01/13/2020
s/p BLADIMIR to prox LAD 06/21/2024s/p TAVR 26 mm Fleming Valve 05/11/2020
MS/MR, mild to mod by echo 2023
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
COPD
Carotid stenosis
Hypertension
Hyperlipidemia
Hypothyroidism
Type 2 DM
Renal insufficiency
Frequent PVCs, NSVT
DNR code status
Past Medical History
Past Medical History: Other (As above)
Past Surgical History: Other (as above)
Social History
Tobacco: Former Smoker
Alcohol: Former
Personal:
Living: With Family
Family History
Family History: Reviewed & Not Pertinent
Allergies / Home Medications
Allergy/AdvReac Type Severity Reaction Status Date / Time
No Known Allergies Allergy Verified 04/05/25 00:35
�Medication �Instructions �Recorded �Confirmed �Type
cyanocobalamin (vitamin B-12) 1,000 mcg PO QPM Supplement 01/13/20 07/15/25 History
1,000 mcg tablet
levothyroxine 175 mcg tablet 175 mcg PO DAILY Thyroid 01/13/20 07/15/25 History
sertraline 50 mg tablet 50 mg PO HS Mental Health/Anxiety 01/13/20 07/15/25 History
pantoprazole 40 mg tablet,delayed 40 mg PO QPM Gastrointestinal issue 05/15/20 07/15/25 History
release
budesonide 0.5 mg/2 mL suspension 0.5 mg (2 mL) inhalation R BID 30 05/07/21 07/15/25 Rx
for nebulization days ##2
magnesium oxide 400 mg PO QPM Supplement 03/15/22 07/15/25 History
empagliflozin 10 mg tablet 10 mg PO DAILY Diabetes 04/10/22 07/15/25 History
(Jardiance)
azithromycin 250 mg tablet 250 mg PO QPM Infection 05/25/24 07/15/25 History
donepezil 10 mg tablet 10 mg PO HS Mental Health/Anxiety 05/25/24 07/15/25 History
glimepiride 1 mg tablet 1 mg PO DAILY Diabetes 05/25/24 07/15/25 History
ipratropium 0.5 mg-albuterol 3 mg 3 ml inhalation R TID 05/25/24 07/15/25 History
(2.5 mg base)/3 mL nebulization Lung/Breathing Issues
soln
prednisone 10 mg tablet 10 mg PO DAILY Anti-Inflammatory 05/25/24 07/15/25 History
vitamins A,C,M-plqu-ghodrr 2,148 1 tab PO BID Supplement 05/25/24 07/15/25 History
mcg-113 mg-45 mg-17.4 mg tablet
(PreserVision AREDS)
cholecalciferol (vitamin D3) 25 50 mcg PO QPM Supplement 06/17/24 07/15/25 History
mcg (1,000 unit) tablet
insulin aspart U-100 100 unit/mL 0 sliding scale dose SC AC PRN 06/17/24 07/15/25 History
(3 mL) subcutaneous pen (Novolog Diabetes
FlexPen U-100 Insulin aspart)
apixaban 2.5 mg tablet (Eliquis) 2.5 mg PO BID 30 days #60 tabs 06/22/24 07/15/25 Rx
doxazosin 1 mg tablet 3 mg (3 x 1 mg) PO HS 30 days #90 06/22/24 07/15/25 Rx
tabs
amiodarone 200 mg tablet 200 mg PO DAILY AFIB 04/05/25 07/15/25 History
amlodipine 10 mg tablet 5 mg PO DAILY Blood pressure 04/05/25 07/15/25 History
atorvastatin 40 mg tablet (Lipitor) 40 mg PO HS High Cholesterol 04/05/25 07/15/25 History
metoprolol succinate 25 mg 25 mg PO BID Blood Pressure 04/05/25 07/15/25 History
tablet,extended release 24 hr
potassium chloride 20 mEq 20 meq PO QPM Supplement 04/05/25 07/15/25 History
tablet,extended release
torsemide 20 mg tablet 20 mg PO BID@0800,1600 14 days #28 04/11/25 07/15/25 Rx
tabs
cephalexin 500 mg capsule 500 mg PO BID 07/15/25 07/15/25 History
hydrocodone 5 mg-acetaminophen 325 1 tab PO BIDPRN PRN severe pains 07/15/25 07/15/25 History
mg tablet
kcymtv-gxksbrha-hkbomhn 1 cap PO AC 07/15/25 07/15/25 History
24,000-76,000-120,000 unit
capsule,delayed rel (Creon)
metolazone 5 mg tablet 5 mg PO WEFR 07/15/25 07/15/25 History
Review of Systems
-
History Source: Patient
All other systems: Negative unless noted
Physical Exam
Vital Signs
Temp Pulse Resp BP Pulse Ox
97.9 F 71 16 100/59 98
07/16/25 07:05 07/16/25 07:31 07/16/25 07:31 07/16/25 07:05 07/16/25 07:31
Lab Results
Troponin I 0.020 ng/ml 07/15/25 16:58
Ctm-B-Kdvxoxumxee Pept 6210 pg/ml 07/15/25 16:58
Physical Exam
General: Well Developed
HEENT: Normocephalic
Respiratory: Non Labored Respirations (on RA)
Cardiac: S1/S2 and Regular Rhythm
GI: Soft
Musculoskeletal: Edema (tense)
Skin: Warm and Dry
Neuro: Awake and Alert
Psych: Calm
Impression / Plan
-
Primary Bakery Deliverer: Dr. Deana Palomino
Assessment:
Edema/anasarca
FAHEEM on CKD
Concern for cellulitis versus gout flare
Acute on chronic HFpEF
Paroxysmal atrial fibrillation
Chronic Eliquis anticoagulation
CAD
s/p BLADIMIR to mid LAD 01/13/2020
s/p BLADIMIR to prox LAD 06/21/2024s/p TAVR 26 mm Fleming Valve 05/11/2020
MS/MR, mild to mod by echo 2023
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
COPD
Carotid stenosis
Hypertension
Hyperlipidemia
Hypothyroidism
Type 2 DM
Renal insufficiency
Frequent PVCs, NSVT
DNR code status
Echo 06/18/2024: EF 50 to 55%, stage II diastolic dysfunction, mild to moderate MS with peak/mean gradient 16/8 mmHg, moderate MR, severely dilated left atrium, status post number 26 mm TAVR with peak/mean gradients of 25/17 mmHg, trace AR, trace TR,
PAP 30 mmHg
ECHO 04/05/2025: EF 60 to 65%, no regional wall motion abnormalities noted, mild concentric LVH, moderate to severe MS with peak/mean gradients 26/13 mmHg, Fleming ROSARIO #26 TAVR with peak/mean gradients 37/22 mmHg, trace TR, PAP 50 to 55 mmHg
Plan:
-Presented with worsening peripheral edema, but reports his weight has been stable around 170-171lbs. Suspect we may need to target a lower dry weight. Follow daily standing weights here.
-Increase IV Lasix to 80mg BID
-Add metolazone 5mg today, with additional PRN doses
-Following renal function and electrolytes. Cr currently above his baseline. Possible cardiorenal syndrome?
-Avoid SGLT2 and MRA with FAHEEM on CKD
-Consideration for treatment of MS as an outpatient contributing to his symptoms, mod to severe by echo 04/05. will need to follow as OP and can discuss options for treatment if worsens (? TMVR candidacy)
-Continue plavix, eliquis given history of LAD PCI 05/2024 and paroxysmal atrial fibrillation.
-Continue treatment gout and cellulitis per primary service
Data Reviewed
-
EKG: Tracing Personally Visualized and interpreted
Radiology: Image Personally Visualized and interpreted
Medical Tests (Nuc Med, Echo etc): Report Reviewed by me
Labs: Labs Reviewed by me
Old Records: Reviewed
[2025-07-16] MEDS: NOVOLOG FLEXPEN-LOW RESISTANCE SC (09:50)
[2025-07-16 10:04] LABS: Hematocrit 27.6 % (39.0-52.0); Hemoglobin 8.6 g/dL (13.0-18.0); Mean Corp Hgb Conc. 31.2 g/dL (33.0-37.0); Mean Corpuscular Volume 94.8 fL (80.0-94.0); Platelet Count 141 10^3/uL (130-400); Red Cell Dist. Width 17.6 % (11.5-14.5)
[2025-07-16 11:11] LABS: Glycohemoglobin (HgbA1c) 5.9 % (4.0-5.6)
[2025-07-16 11:19] LABS: Blood Urea Nitrogen 63 mg/dl (9-20); Calcium 8.1 mg/dl (8.4-10.2); Carbon Dioxide 21 mmol/L (22-30); Chloride 115 mmol/L (98-107); Estimated Creatinine Clearance 26 ml/min; Glucose 117 mg/dl (70-99); HDL Cholesterol 43 mg/dl; LDL Cholesterol, Calculated 7 mg/dl; Magnesium 2.3 mg/dl (1.6-2.3); Potassium 4.6 mmol/L (3.5-5.1); Sodium 140 mmol/L (135-145); Very Low Density Lipoprotein 15 mg/dl (0-30); eGFR 32.10
[2025-07-16 11:30] LABS: Glucose - Point of Care 244 mg/dl (70-99)
[2025-07-16] MEDS: ZAROXOLYN 5 MG PO (11:30)
[2025-07-16] MEDS: NOVOLOG FLEXPEN-LOW RESISTANCE 2 UNITS SC ×2 (12:20→17:05)
--- NOTE | 2025-07-16 13:47 | W.PN.HOSP.TC ---
Today's Communication/Plan
-
Continue diuretics
Add Lyrica
PT/OT
Monitor renal function
Assessment / Plan
Assessment / Plan
Gen-AAOx3, NAD
HEENT-NC, AT, anicteric, clear oral mm
Neck-supple
CV-reg, no M, +S1/S2
Lungs-clear B/L
Abd-soft, NT, ND
Ext-bilateral lower extremity edema, left upper extremity edema
Musculoskeletal-no cyanosis, clubbing
Skin-warm and dry, multiple bruises on extremities
Neuro-grossly non-focal
Psych-calm, cooperative
Acute on chronic heart failure with preserved EF -presentation with anasarca. Continue IV Lasix at higher dose, 80 mg every 12 hours. Cardiology following. Monitor weights, I's and O's.
Last echocardiogram was 04/05/2025 showing LVEF 60 to 65%, mild concentric LVH, normal RV systolic function, moderate to severe mitral stenosis.
FAHEEM on CKD 3A -possible cardiorenal syndrome from CHF exacerbation. Creatinine trending down. Monitor closely.
Hyperkalemia -improved.
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 Unclear etiology. He is under the care of pain management, has been on hydrocodone/acetaminophen as needed at home. Unclear why he is not on neuropathic pain reliever.
Can give a trial of Lyrica 25 mg daily. Dose adjusted for renal impairment.
Hypothyroidism -continue levothyroxine. TSH 2.87.
DM2 with hyperglycemia -presentation with glucose of 38. Hemoglobin A1c 5.9%. Will permanently discontinue glimepiride given his age, frailty, presentation with hypoglycemia. At home he is on glimepiride, Jardiance.
Currently on low resistance aspart scale.
Paroxysmal atrial fibrillation -continue Eliquis.
Medtronic permanent pacemaker
CAD -stable.
COPD without exacerbation -continue inhalers.
Hyperlipidemia -atorvastatin.
Essential hypertension -stable.
s/p TAVR with moderate bioprosthetic stenosis
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
Chronic anemia -unclear etiology. Counts are stable.
DNR
Dispo -SNF recommended.
Anticipated Discharge: > 48 hours
Subjective/Interval History
-
Date of Service: July 16, 2025
Patient seen and examined. Complaining of neuropathic pain down the front of the left leg.
Objective Data
-
Labs:
Laboratory Results
07/16/25
09:49
WBC 14.5 H
Hgb 8.6 L
Hct 27.6 L
Plt Count 141
Sodium 140
Potassium 4.6
Chloride 115 H
Carbon Dioxide 21 L
BUN 63 H
Creatinine 2.0 H
Glucose 117 H
Calcium 8.1 L
Vital Signs:
Vital Signs
Temp Pulse Resp BP Pulse Ox
97.8 F 74 16 105/53 99
07/16/25 11:20 07/16/25 11:40 07/16/25 11:40 07/16/25 11:20 07/16/25 11:40
I&O
07/15/25 07/16/25 07/17/25
06:59 06:59 06:59
Output Total 815 / 815
Balance -815 / -815
Review of Systems
-
History Source: Patient
All other systems: Reviewed and negative
[2025-07-16] MEDS: LYRICA 25 MG PO (14:34)
[2025-07-16 16:27] LABS: Glucose - Point of Care 246 mg/dl (70-99)
[2025-07-16] MEDS: PROTONIX 40 MG PO (17:04)
[2025-07-16] MEDS: ZITHROMAX 250 MG PO (17:04)
[2025-07-16] MEDS: MAG-TAB SR 84 MG PO (17:04)
[2025-07-16] MEDS: LASIX 80 MG IV (17:05)
[2025-07-16] MEDS: TOPROL XL 25 MG PO (19:30)
[2025-07-16 21:25] LABS: Glucose - Point of Care 214 mg/dl (70-99)
[2025-07-16] MEDS: CARDURA 3 MG PO (21:53)
[2025-07-16] MEDS: ZOLOFT 50 MG PO (21:53)
[2025-07-16] MEDS: ARICEPT 10 MG PO (21:53)
[2025-07-16] MEDS: LIPITOR 40 MG PO (21:53)
[2025-07-17] VITALS (7 sets, daily range): BP systolic 100–117; BP diastolic 44–58; BMI 26.2
[2025-07-17] MEDS: NORCO 5/325 1 TABLET PO (04:45)
[2025-07-17] MEDS: SYNTHROID 175 MCG PO (04:45)
[2025-07-17 06:03] LABS: Hematocrit 26.0 % (39.0-52.0); Hemoglobin 8.2 g/dL (13.0-18.0); Mean Corp Hgb Conc. 31.5 g/dL (33.0-37.0); Mean Corpuscular Volume 94.2 fL (80.0-94.0); Platelet Count 130 10^3/uL (130-400); Red Cell Dist. Width 17.4 % (11.5-14.5)
[2025-07-17 06:27] LABS: Blood Urea Nitrogen 57 mg/dl (9-20); Calcium 7.6 mg/dl (8.4-10.2); Carbon Dioxide 20 mmol/L (22-30); Chloride 116 mmol/L (98-107); Estimated Creatinine Clearance 25 ml/min; Glucose 163 mg/dl (70-99); Potassium 4.4 mmol/L (3.5-5.1); Sodium 138 mmol/L (135-145); eGFR 30.28
[2025-07-17 07:34] LABS: Glucose - Point of Care 118 mg/dl (70-99)
[2025-07-17] MEDS: DUONEB 3 ML INH ×3 (07:41→18:05)
[2025-07-17] MEDS: PULMICORT 0.5 MG INH ×2 (07:41→18:05)
[2025-07-17] MEDS: ELIQUIS 2.5 MG PO ×2 (07:59→19:57)
[2025-07-17] MEDS: DELTASONE 10 MG PO (07:59)
[2025-07-17] MEDS: KEFLEX 500 MG PO ×2 (07:59→19:54)
[2025-07-17] MEDS: LYRICA 25 MG PO (07:59)
[2025-07-17] MEDS: NORVASC 5 MG PO (07:59)
[2025-07-17] MEDS: PACERONE 200 MG PO (07:59)
[2025-07-17] MEDS: ZENPEP DELAYED RELEASE CAPSULE 1 CAPSULE PO ×3 (07:59→17:33)
[2025-07-17] MEDS: TOPROL XL 25 MG PO ×2 (07:59→19:55)
[2025-07-17] MEDS: LASIX 80 MG IV ×2 (08:00→17:33)
[2025-07-17] MEDS: OCUVITE SOFTGEL 1 CAP PO ×2 (08:01→19:54)
[2025-07-17] MEDS: NOVOLOG FLEXPEN-LOW RESISTANCE SC (08:09)
--- NOTE | 2025-07-17 08:43 | W.PN.HOSP.TC ---
Today's Communication/Plan
-
Continue diuretics
Assessment / Plan
Assessment / Plan
Gen-AAOx3, NAD
HEENT-NC, AT, anicteric, clear oral mm
Neck-supple
CV-reg, no M, +S1/S2
Lungs-clear B/L
Abd-soft, NT, ND
Ext-bilateral lower extremity edema, left upper extremity edema
Musculoskeletal-no cyanosis, clubbing
Skin-warm and dry, multiple bruises on extremities
Neuro-grossly non-focal
Psych-calm, cooperative
Acute on chronic heart failure with preserved EF -presentation with anasarca. Continue IV Lasix at higher dose, 80 mg every 12 hours. Cardiology following. Monitor weights, I's and O's.
Last echocardiogram was 04/05/2025 showing LVEF 60 to 65%, mild concentric LVH, normal RV systolic function, moderate to severe mitral stenosis.
Clinically improving with less lower extremity edema.
FAHEEM on CKD 3A -possible cardiorenal syndrome from CHF exacerbation. Creatinine plateaued at 2.1 today. Monitor closely on diuretics.
Hyperkalemia -improved.
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 Unclear etiology. He is under the care of pain management, has been on hydrocodone/acetaminophen as needed at home. Unclear why he is not on neuropathic pain reliever.
Lyrica 25 mg daily started, patient states he is starting to feel better.
Hypothyroidism -continue levothyroxine. TSH 2.87.
DM2 with hyperglycemia -presentation with glucose of 38. Hemoglobin A1c 5.9%. Will permanently discontinue glimepiride given his age, frailty, presentation with hypoglycemia. Discussed with patient. At home he is on glimepiride, Jardiance.
Currently on low resistance aspart scale.
Glucose 163 this morning, 214 last night. Add carb controlled diet to regimen.
Paroxysmal atrial fibrillation -continue Eliquis.
Medtronic permanent pacemaker
CAD -stable.
COPD without exacerbation -continue inhalers.
Hyperlipidemia -atorvastatin.
Essential hypertension -stable.
s/p TAVR with moderate bioprosthetic stenosis
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
Chronic anemia -unclear etiology. Counts are stable.
DNR
Dispo -SNF recommended. Patient resides in [facility], he prefers to go back to [facility] home independent living with home PT due to economic reasons.
Anticipated Discharge: 24 - 48 hours
Subjective/Interval History
-
Date of Service: July 17, 2025
Patient seen and examined. Has less nerve pain down the left leg. Denies shortness of breath.
Objective Data
-
Labs:
Laboratory Results
07/17/25
05:20
WBC 13.9 H
Hgb 8.2 L
Hct 26.0 L
Plt Count 130
Sodium 138
Potassium 4.4
Chloride 116 H
Carbon Dioxide 20 L
BUN 57 H
Creatinine 2.1 H
Glucose 163 H
Calcium 7.6 L
Vital Signs:
Vital Signs
Temp Pulse Resp BP Pulse Ox
98.1 F 73 16 100/44 97
07/17/25 07:30 07/17/25 07:46 07/17/25 07:46 07/17/25 07:30 07/17/25 07:46
I&O
07/16/25 07/17/25 07/18/25
06:59 06:59 06:59
Intake Total 2019
Output Total 815 / 815 1625 / 1625
Balance -815 / -815 395 / 395
Review of Systems
-
History Source: Patient
All other systems: Reviewed and negative
--- NOTE | 2025-07-17 09:55 | W.PN.CARDCBS ---
Today's Communication / Plan
-
Continue IV Lasix as weight is decreasing renal function stable with creatinine of 2.1
Impression / Plan
-
Primary Typewriter Operator Automatic: Dr. Deana Palomino
Assessment:
Edema/anasarca
FAHEEM on CKD
Concern for cellulitis versus gout flare
Acute on chronic HFpEF
Paroxysmal atrial fibrillation
Chronic Eliquis anticoagulation
CAD
s/p BLADIMIR to mid LAD 01/13/2020
s/p BLADIMIR to prox LAD 06/21/2024s/p TAVR 26 mm Fleming Valve 05/11/2020
MS/MR, mild to mod by echo 2023
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
COPD
Carotid stenosis
Hypertension
Hyperlipidemia
Hypothyroidism
Type 2 DM
Renal insufficiency
Frequent PVCs, NSVT
DNR code status
Echo 06/18/2024: EF 50 to 55%, stage II diastolic dysfunction, mild to moderate MS with peak/mean gradient 16/8 mmHg, moderate MR, severely dilated left atrium, status post number 26 mm TAVR with peak/mean gradients of 25/17 mmHg, trace AR, trace TR,
PAP 30 mmHg
ECHO 04/05/2025: EF 60 to 65%, no regional wall motion abnormalities noted, mild concentric LVH, moderate to severe MS with peak/mean gradients 26/13 mmHg, Fleming ROSARIO #26 TAVR with peak/mean gradients 37/22 mmHg, trace TR, PAP 50 to 55 mmHg
Plan:
Has diuresed nicely with relatively stable creatinine of 2.1
Consideration for treatment of MS as an outpatient contributing to his symptoms, mod to severe by echo 04/05. will need to follow as OP and can discuss options for treatment if worsens (? TMVR candidacy)
Continue plavix, eliquis given history of LAD PCI 05/2024 and paroxysmal atrial fibrillation. He wants to pursue [facility]
Continue treatment gout and cellulitis per primary service
Progress Note - Typewriter Operator Automatic
Subjective
Date of Service: July 17, 2025
No chest pain or shortness of breath
Objective
Labs:
07/17/25 05:20
07/17/25 05:20
Labs
Hgb 8.2 g/dL (13.0-18.0) L 07/17/25 05:20
Hct 26.0 % (39.0-52.0) L 07/17/25 05:20
Plt Count 130 10^3/uL (130-400) 07/17/25 05:20
Sodium 138 mmol/L (135-145) 07/17/25 05:20
Potassium 4.4 mmol/L (3.5-5.1) 07/17/25 05:20
BUN 57 mg/dl (9-20) H 07/17/25 05:20
Creatinine 2.1 mg/dL (0.7-1.3) H 07/17/25 05:20
Glucose 163 mg/dl (70-99) H 07/17/25 05:20
Troponins
07/15/25
16:58
Troponin I 0.020
Vital Signs and I&O:
Vital Signs
Temp Pulse Resp BP Pulse Ox
98.1 F 73 16 100/44 97
07/17/25 07:30 07/17/25 07:46 07/17/25 07:46 07/17/25 07:30 07/17/25 07:46
Vital Signs
Temp Pulse Resp BP Pulse Ox
98.1 F 73 16 100/44 97
07/17/25 07:30 07/17/25 07:46 07/17/25 07:46 07/17/25 07:30 07/17/25 07:46
Intake & Output
07/15/25 07/16/25 07/17/25 07/18/25
06:59 06:59 06:59 06:59
Intake Total 2019
Output Total 815 / 815 1625 / 1625
Balance -815 / -815 395 / 395
Physical Exam
Physical Exam
General: Well developed, well nourished in NAD.
Neck: Supple, no JVD, HJR, carotids +2 B/L, no bruits bilaterally.
Heart: Non displaced PMI, RRR, no murmurs, No S3, S4, no rubs.
Lungs: Scattered rhonchi at the bases
Extremities: No clubbing, cyanosis or edema bilaterally.
Neuro: Grossly nonfocal, awake, alert and oriented x3.
[2025-07-17 11:24] LABS: Glucose - Point of Care 205 mg/dl (70-99)
[2025-07-17] MEDS: NOVOLOG FLEXPEN-LOW RESISTANCE 2 UNITS SC ×2 (11:36→17:33)
--- NOTE | 2025-07-17 13:33 | CM ---
Met [facility] patient at bedside
Pharmacy verified: [facility] @ [address] [place] [address]
Lives w/ ; one story home @ [facility]; 1 step to enter; uses bath w/ tub
PLOF: was independent w/ ambulation, ADLs; drives; retired
No DME
No SNF or recent Home Health utilization history
PT recommends SNF; patient is agreeable; preference is [facility]; referral sent via [facility]
If home health after SNF is recommended, [facility] is preference; also interested in understanding Palliative vs. Hospice Care after SNF stay with [facility].
Plan: Discharge to SNF when medically stable; pending bed availability and Authorization approval
[2025-07-17 15:39] LABS: Glucose - Point of Care 238 mg/dl (70-99)
[2025-07-17] MEDS: MAG-TAB SR 84 MG PO (17:32)
[2025-07-17] MEDS: PROTONIX 40 MG PO (17:33)
[2025-07-17] MEDS: ZITHROMAX 250 MG PO (17:33)
[2025-07-17] MEDS: LIPITOR 40 MG PO (21:04)
[2025-07-17] MEDS: CARDURA 3 MG PO (21:05)
[2025-07-17] MEDS: ZOLOFT 50 MG PO (21:09)
[2025-07-17] MEDS: ARICEPT 10 MG PO (21:09)
[2025-07-17 21:20] LABS: Glucose - Point of Care 183 mg/dl (70-99)
[2025-07-18] VITALS (8 sets, daily range): BP systolic 80–110; BP diastolic 41–65; PULSE 95; BMI 26.2
[2025-07-18] MEDS: NORCO 5/325 1 TABLET PO (04:07)
[2025-07-18] MEDS: SYNTHROID 175 MCG PO (04:07)
[2025-07-18] MEDS: PULMICORT 0.5 MG INH ×2 (07:11→19:37)
[2025-07-18] MEDS: DUONEB 3 ML INH ×3 (07:11→19:37)
[2025-07-18 07:32] LABS: Glucose - Point of Care 88 mg/dl (70-99)
[2025-07-18] MEDS: NOVOLOG FLEXPEN-LOW RESISTANCE SC (07:50)
[2025-07-18 08:12] LABS: Hematocrit 27.2 % (39.0-52.0); Hemoglobin 8.6 g/dL (13.0-18.0); Mean Corp Hgb Conc. 31.6 g/dL (33.0-37.0); Mean Corpuscular Volume 93.5 fL (80.0-94.0); Platelet Count 135 10^3/uL (130-400); Red Cell Dist. Width 17.2 % (11.5-14.5)
[2025-07-18 08:33] LABS: Blood Urea Nitrogen 55 mg/dl (9-20); Calcium 7.9 mg/dl (8.4-10.2); Carbon Dioxide 23 mmol/L (22-30); Chloride 113 mmol/L (98-107); Estimated Creatinine Clearance 31 ml/min; Glucose 68 mg/dl (70-99); Potassium 4.1 mmol/L (3.5-5.1); Sodium 138 mmol/L (135-145); eGFR 39.02
[2025-07-18] MEDS: OCUVITE SOFTGEL 1 CAP PO ×2 (09:03→20:58)
[2025-07-18] MEDS: KEFLEX 500 MG PO ×2 (09:03→20:58)
[2025-07-18] MEDS: DELTASONE 10 MG PO (09:03)
[2025-07-18] MEDS: ELIQUIS 2.5 MG PO ×2 (09:03→20:58)
[2025-07-18] MEDS: ZENPEP DELAYED RELEASE CAPSULE 1 CAPSULE PO ×3 (09:04→16:26)
[2025-07-18] MEDS: LYRICA 25 MG PO (09:04)
[2025-07-18] MEDS: NORVASC 5 MG PO (09:04)
[2025-07-18] MEDS: TOPROL XL 25 MG PO (09:04)
[2025-07-18] MEDS: LASIX 80 MG IV ×2 (09:05→16:24)
[2025-07-18] MEDS: PACERONE 200 MG PO (09:06)
--- NOTE | 2025-07-18 10:56 | CM ---
Reviewed the chart notes and spoke with the patient at the bedside. Patient resides in a cottage on [facility] property. [facility] has accepted patient at discharge for SNF/rehab per [facility]. CM continues to be available to patient/family and
is monitoring medical plan for needs at discharge.
Plan: Discharge to [facility] when medically stable, bed available, and precert obtained.
--- NOTE | 2025-07-18 11:20 | W.PN.CARDCBS ---
Addendum entered and electronically signed by Mahamed Burris DO 07/18/25 11:55:
I saw and examined the patient.
The Lpn Care Manager's note was reviewed and I agree with the note.
Comment:
Plan:
Cont IV lasix diuresis another 24 hrs, wt improving and is down at least 4 lbs since admission.
Previous dry wt may not be accurate.
Continue Lasix 80 mg IV BID for now.
Patient was taking torsemide 20 mg PO BID plus metolazone 5 mg Wednesdays and Fridays prior to admission, but metolazone is currently on hold.
EF was 60 to 65% by echo 04/05/2025, no need to repeat this admission.
There is moderate to severe MS with peak/mean 26/13 mmHg.
Pt is currently undergoing medical therapy, his candidacy for eval for TMVR is unclear
Patient has a previous TAVR with peak/mean 37/22 mmHg by echo 3 months ago
Outpatient dose of Toprol XL 25 mg BID has been continued
Patient with known history of paroxysmal A-fib andin sinus with AV pacing on telemetry
Cont outpt amiodarone 200 mg daily with stable QTc
Cont Eliquis 2.5 mg BID outpt dose
Patient indicates he would be interested in Watchman, not clear if he is a candidate for this given underlying dementia.
Device check in the office on 07/11/2025 showed normal device and lead function without significant arrhythmia and good battery life
Hx CAD: Patient had LAD PCI 06/21/2024 and Plavix has been stopped at this point.
Plan is for rehab at [facility], he already lives there with his in an independent living cottage so he is agreeable to this.
Original Note:
Today's Communication / Plan
-
Cont Lasix IV, Cre and wt improved
Impression / Plan
-
PCP: Dr. Dexter Meng
Primary Hand Booked Folder And Stitcher: Dr. Deana Palomino
Assessment:
Admitted with edema/anasarca 07/15/25
FAHEEM on CKD 3a
Concern for cellulitis versus gout flare
Acute on chronic HFpEF
Paroxysmal atrial fibrillation
Chronic Eliquis anticoagulation
CAD
s/p BLADIMIR to mid LAD 01/13/2020
s/p BLADIMIR to prox LAD 06/21/2024
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
MS/MR, mild to mod by echo 2023
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
COPD
Carotid stenosis
Hypertension
Hyperlipidemia
Hypothyroidism
Type 2 DM
Renal insufficiency
Frequent PVCs, NSVT
DNR code status
Echo 06/18/2024: EF 50 to 55%, stage II diastolic dysfunction, mild to moderate MS with peak/mean gradient 16/8 mmHg, moderate MR, severely dilated left atrium, status post number 26 mm TAVR with peak/mean gradients of 25/17 mmHg, trace AR, trace TR,
PAP 30 mmHg
ECHO 04/05/2025: EF 60 to 65%, no regional wall motion abnormalities noted, mild concentric LVH, moderate to severe MS with peak/mean gradients 26/13 mmHg, Fleming ROSARIO #26 TAVR with peak/mean gradients 37/22 mmHg, trace TR, PAP 50 to 55 mmHg
Plan:
-Weight is down at least 4 lbs since admission. Patient weighs 172 lbs on VS reviewed by me 07/18/2025. Patient is below any previous dry weight.
-Continue Lasix 80 mg IV BID for now. Patient was taking torsemide 20 mg PO BID plus metolazone 5 mg Wednesdays and Fridays prior to admission, but metolazone is currently on hold.
-EF was 60 to 65% by echo 04/05/2025, no need to repeat this admission.
-Echo from 04/05/2025 was reviewed by me as noted above and there is also evidence of moderate to severe MS with peak mean 26/13 mmHg. Patient is a DNR and has dementia, not clear if he has ever been evaluated for TMVR candidacy.
-Patient has a previous TAVR with peak/mean 37/22 mmHg by echo 3 months ago
-Outpatient dose of Toprol XL 25 mg BID has been continued
-Patient is not chronically on SGLT2 inhibitor
-Patient is not chronically on spironolactone
-Patient with known history of paroxysmal A-fib and appears to be in sinus with AV pacing on telemetry reviewed by me on 07/18/2025. Outpatient dose of amiodarone 200 mg daily has been continued, QTc 497 ms on ECG from 07/16/2025 that was reviewed by
me from 07/18/2025
-Device check in the office on 07/11/2025 showed normal device and lead function without significant arrhythmia and good battery life
-Outpatient dose of Eliquis 2.5 mg BID has been continued. Patient indicates he would be interested in watchman, but not sure if he is a candidate for this given underlying dementia.
-Patient had LAD PCI 06/21/2024 and Plavix has been stopped at this point.
-Case management note reviewed by me on 07/18/2025 and plan is for rehab at [facility], he already lives there with his in an independent living cottage so he is agreeable to this.
Progress Note - Hand Booked Folder And Stitcher
Subjective
Date of Service: July 18, 2025
He thinks he is doing better, he knows he is going to rehab
Objective
Labs:
07/18/25 07:10
07/18/25 07:10
Labs
Hgb 8.6 g/dL (13.0-18.0) L 07/18/25 07:10
Hct 27.2 % (39.0-52.0) L 07/18/25 07:10
Plt Count 135 10^3/uL (130-400) 07/18/25 07:10
Sodium 138 mmol/L (135-145) 07/18/25 07:10
Potassium 4.1 mmol/L (3.5-5.1) 07/18/25 07:10
BUN 55 mg/dl (9-20) H 07/18/25 07:10
Creatinine 1.7 mg/dL (0.7-1.3) H 07/18/25 07:10
Glucose 68 mg/dl (70-99) L 07/18/25 07:10
Troponins
07/15/25
16:58
Troponin I 0.020
Vital Signs and I&O:
Vital Signs
Temp Pulse Resp BP Pulse Ox
97.9 F 77 18 106/49 97
07/18/25 07:39 07/18/25 09:04 07/18/25 07:39 07/18/25 09:04 07/18/25 08:39
Vital Signs
Temp Pulse Resp BP Pulse Ox
97.9 F 77 18 106/49 97
07/18/25 07:39 07/18/25 09:04 07/18/25 07:39 07/18/25 09:04 07/18/25 08:39
Intake & Output
07/16/25 07/17/25 07/18/25 07/19/25
06:59 06:59 06:59 06:59
Intake Total 2019 840 / 840
Output Total 815 / 815 1625 / 1625 1700 / 1700
Balance -815 / -815 395 / 395 -860 / -860
Physical Exam
Physical Exam
GEN: No distress, AAO to person, place and situation
LUNGS: RA. No audible wheeze
CV: AV paced on tele
--- NOTE | 2025-07-18 11:45 | WOUNDNOTE ---
[facility] RN note: Patient admitted with CHF exacerbation, falls, LE and UE edema. Patient lives in independent living in [facility]. Plan is SNF stay when discharged.
See H&P for complete history.
PMH: NIDDM, renal insufficiency, CAD, COPD, HTN, valvular disease, anxiety, cirrhosis of liver, LE edema (he wears compression stockings at home), a fib (Eliquis), pancreatic insufficiency, LAD stent, pacer, TAVR, former smoker, colon resection,
total hip?
Wound Location and type/assessment: Patient admitted with: dermal skin tears UE's, L scabbed skin tear L hand, L upper posterior calf, R hill. Small dermal opening L hill with moderate serous drainage. Trace-+1 LE edema (edema improved as per
patient). +Palpable pedal pulses. Sacral dermal linear small stage 2 pressure injury vs MASD with blanchable sacral red skin.
Appetite: good.
Pressure redistribution devices in place: [employer] Accumax. Air chair cushion. Patient stood with walker during sacral skin assessment.
Plan: Sacral shaped silicone border foam applied to sacrum. Instructed patient pressure injury prevention measures.
Will confirm orders with Dr. Walker. t/c bed tech Willy and requested an air mattress. Discussed with WENDY Muhammad who will coordinate switching patient's bed.
Care plan to be updated and will follow as needed.
Note to case management of equipment requested for discharge: VN if goes home.
Recommend follow up at wound care center upon discharge.
--- NOTE | 2025-07-18 11:45 | WOUNDNOTE ---
[facility] RN note: Patient admitted with CHF exacerbation, falls, LE and UE edema. Patient lives in independent living in [facility]. Plan is SNF stay when discharged.
See H&P for complete history.
PMH: NIDDM, renal insufficiency, CAD, COPD, HTN, valvular disease, anxiety, cirrhosis of liver, LE edema (he wears compression stockings at home), a fib (Eliquis), pancreatic insufficiency, LAD stent, pacer, TAVR, former smoker, colon resection,
total hip?
Wound Location and type/assessment: Patient admitted with: dermal skin tears UE's, L scabbed skin tear L hand, L upper posterior calf, R hill. Small dermal opening L hill with moderate serous drainage. Trace-+1 LE edema (edema improved as per
patient). +Palpable pedal pulses. Sacral pinpoint stage 2 pressure injury with surrounding blanchable red skin.
Appetite: good.
Pressure redistribution devices in place: [employer] Accumax. Air chair cushion. Patient stood with walker during sacral skin assessment.
Plan: Sacral shaped silicone border foam applied to sacrum. Instructed patient pressure injury prevention measures.
Will confirm orders with Dr. Walker and discussed with RN Sabina.
Care plan to be updated and will follow as needed.
Note to case management of equipment requested for discharge: VN if goes home.
Recommend follow up at wound care center upon discharge.
--- NOTE | 2025-07-18 11:52 | WOUNDNOTE ---
L HEEL (MEDIAL UPPER POSTERIOR)
--- NOTE | 2025-07-18 11:53 | WOUNDNOTE ---
R ARM (LATERAL ELBOW AREA)
[2025-07-18 11:56] LABS: Glucose - Point of Care 159 mg/dl (70-99)
--- NOTE | 2025-07-18 12:22 | W.PN.HOSP.TC ---
Today's Communication/Plan
-
Continue current care
Assessment / Plan
Assessment / Plan
Gen-AAOx3, NAD
HEENT-NC, AT, anicteric, clear oral mm
Neck-supple
CV-reg, no M, +S1/S2
Lungs-clear B/L
Abd-soft, NT, ND
Ext-bilateral lower extremity edema, left upper extremity edema
Musculoskeletal-no cyanosis, clubbing
Skin-warm and dry, multiple bruises on extremities
Neuro-grossly non-focal
Psych-calm, cooperative
Acute on chronic heart failure with preserved EF -presentation with anasarca. Continue IV Lasix at higher dose, 80 mg every 12 hours. Cardiology following. Monitor weights, I's and O's.
Last echocardiogram was 04/05/2025 showing LVEF 60 to 65%, mild concentric LVH, normal RV systolic function, moderate to severe mitral stenosis.
Not much change in his body weight. Still has significant lower extremity edema.
If okay with cardiology will add metolazone 5 mg daily. He did get a dose of metolazone 5 mg on 07/16.
FAHEEM on CKD 3A -possible cardiorenal syndrome from CHF exacerbation. Creatinine improving, creatinine 1.7 today.
Hyperkalemia -improved.
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 Unclear etiology. He is under the care of pain management, has been on hydrocodone/acetaminophen as needed at home. Unclear why he is not on neuropathic pain reliever.
Lyrica 25 mg daily started, patient states he is starting to feel better.
Hypothyroidism -continue levothyroxine. TSH 2.87.
DM2 with hyperglycemia -presentation with glucose of 38. Hemoglobin A1c 5.9%. Will permanently discontinue glimepiride given his age, frailty, presentation with hypoglycemia. Discussed with patient. At home he is on glimepiride, Jardiance.
Currently on low resistance aspart scale.
Glucose 68 this morning, 183 last night. Add carb controlled diet to regimen.
Paroxysmal atrial fibrillation -continue Eliquis.
Medtronic permanent pacemaker
CAD -stable.
COPD without exacerbation -continue inhalers.
Hyperlipidemia -atorvastatin.
Essential hypertension -stable.
s/p TAVR with moderate bioprosthetic stenosis
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
Chronic anemia -unclear etiology. Counts are stable.
DNR
Dispo -SNF recommended. Patient resides in [facility], he prefers to go back to [facility] independent living with home PT due to economic reasons.
Anticipated Discharge: > 48 hours
Subjective/Interval History
-
Date of Service: July 18, 2025
Patient seen and examined. No new complaints.
Objective Data
-
Labs:
Laboratory Results
07/18/25
07:10
WBC 13.1 H
Hgb 8.6 L
Hct 27.2 L
Plt Count 135
Sodium 138
Potassium 4.1
Chloride 113 H
Carbon Dioxide 23
BUN 55 H
Creatinine 1.7 H
Glucose 68 L
Calcium 7.9 L
Vital Signs:
Vital Signs
Temp Pulse Resp BP Pulse Ox
97.9 F 77 18 106/49 97
07/18/25 07:39 07/18/25 09:04 07/18/25 07:39 07/18/25 09:04 07/18/25 08:39
I&O
07/17/25 07/18/25 07/19/25
06:59 06:59 06:59
Intake Total 2019 840 / 840
Output Total 1625 / 1625 1700 / 1700
Balance 395 / 395 -860 / -860
Review of Systems
-
History Source: Patient
All other systems: Reviewed and negative
[2025-07-18] MEDS: NOVOLOG FLEXPEN-LOW RESISTANCE 1 UNITS SC (12:31)
[2025-07-18] MEDS: ZAROXOLYN 2.5 MG PO (16:24)
[2025-07-18] MEDS: NOVOLOG FLEXPEN-LOW RESISTANCE 2 UNITS SC (16:34)
[2025-07-18 16:35] LABS: Glucose - Point of Care 245 mg/dl (70-99)
[2025-07-18] MEDS: PROTONIX 40 MG PO (17:01)
[2025-07-18] MEDS: MAG-TAB SR 84 MG PO (17:01)
[2025-07-18] MEDS: ZITHROMAX 250 MG PO (17:01)
[2025-07-18] MEDS: TOPROL XL PO (20:57)
[2025-07-18 21:09] LABS: Glucose - Point of Care 202 mg/dl (70-99)
[2025-07-18] MEDS: ZOLOFT 50 MG PO (23:14)
[2025-07-18] MEDS: LIPITOR 40 MG PO (23:14)
[2025-07-18] MEDS: ARICEPT 10 MG PO (23:15)
[2025-07-18] MEDS: CARDURA 3 MG PO (23:15)
[2025-07-19] VITALS (7 sets, daily range): BP systolic 86–114; BP diastolic 39–52; PULSE 81; O2SAT 97; BMI 26.1
[2025-07-19] MEDS: NORCO 5/325 1 TABLET PO ×3 (02:02→21:39)
[2025-07-19] MEDS: SYNTHROID 175 MCG PO (05:41)
[2025-07-19] MEDS: PULMICORT 0.5 MG INH ×2 (07:20→18:59)
[2025-07-19] MEDS: DUONEB 3 ML INH ×3 (07:21→17:33)
[2025-07-19 07:44] LABS: Hematocrit 28.4 % (39.0-52.0); Hemoglobin 8.9 g/dL (13.0-18.0); Mean Corp Hgb Conc. 31.3 g/dL (33.0-37.0); Mean Corpuscular Volume 93.4 fL (80.0-94.0); Platelet Count 140 10^3/uL (130-400); Red Cell Dist. Width 16.9 % (11.5-14.5)
[2025-07-19 07:48] LABS: Glucose - Point of Care 105 mg/dl (70-99)
[2025-07-19] MEDS: NOVOLOG FLEXPEN-LOW RESISTANCE SC ×2 (07:51→11:41)
[2025-07-19] MEDS: ZAROXOLYN 2.5 MG PO (07:57)
[2025-07-19] MEDS: ZENPEP DELAYED RELEASE CAPSULE 1 CAPSULE PO ×3 (07:57→17:11)
[2025-07-19] MEDS: LYRICA 25 MG PO (07:58)
[2025-07-19] MEDS: OCUVITE SOFTGEL 1 CAP PO ×2 (07:58→21:32)
[2025-07-19] MEDS: KEFLEX 500 MG PO ×2 (07:58→21:31)
[2025-07-19] MEDS: PACERONE 200 MG PO (07:59)
[2025-07-19] MEDS: ELIQUIS 2.5 MG PO ×2 (07:59→21:32)
[2025-07-19] MEDS: NORVASC 5 MG PO (07:59)
[2025-07-19] MEDS: TOPROL XL 25 MG PO ×2 (07:59→21:32)
[2025-07-19] MEDS: DELTASONE 10 MG PO (07:59)
[2025-07-19 08:00] LABS: Blood Urea Nitrogen 55 mg/dl (9-20); Calcium 8.1 mg/dl (8.4-10.2); Carbon Dioxide 22 mmol/L (22-30); Chloride 110 mmol/L (98-107); Estimated Creatinine Clearance 31 ml/min; Glucose 83 mg/dl (70-99); Potassium 3.8 mmol/L (3.5-5.1); Sodium 137 mmol/L (135-145); eGFR 39.02
[2025-07-19] MEDS: LASIX 80 MG IV (08:00)
[2025-07-19] MEDS: TYLENOL 650 MG PO (08:15)
--- NOTE | 2025-07-19 08:29 | W.PN.CARDCBS ---
Today's Communication / Plan
-
Cont IV diuresis and metolazone
Impression / Plan
-
.
PCP: Dr. Dexter Meng
Primary [employer] Resource Teacher: Dr. Deana Palomino
Impression:
Admitted with edema/anasarca 07/15/25
FAHEEM on CKD 3a
Concern for cellulitis versus gout flare
Acute on chronic HFpEF
Paroxysmal atrial fibrillation
Chronic Eliquis anticoagulation
CAD
s/p BLADIMIR to mid LAD 01/13/2020
s/p BLADIMIR to prox LAD 06/21/2024
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
MS/MR, mild to mod by echo 2023
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
COPD
Carotid stenosis
Hypertension
Hyperlipidemia
Hypothyroidism
Type 2 DM
Renal insufficiency
Frequent PVCs, NSVT
DNR code status
Echo 06/18/2024: EF 50 to 55%, stage II diastolic dysfunction, mild to moderate MS with peak/mean gradient 16/8 mmHg, moderate MR, severely dilated left atrium, status post number 26 mm TAVR with peak/mean gradients of 25/17 mmHg, trace AR, trace TR,
PAP 30 mmHg
ECHO 04/05/2025: EF 60 to 65%, no regional wall motion abnormalities noted, mild concentric LVH, moderate to severe MS with peak/mean gradients 26/13 mmHg, Fleming ROSARIO #26 TAVR with peak/mean gradients 37/22 mmHg, trace TR, PAP 50 to 55 mmHg
Plan:
Cont IV lasix diuresis another 24 hrs, wt improving and is down at least 5 lbs since admission.
Metolazone added Jul 18, continue
Previous dry wt may not be accurate.
Cr remains 1.7 Jul 19.
Continue Lasix 80 mg IV BID for now.
Patient was taking torsemide 20 mg PO BID plus metolazone 5 mg Wednesdays and Fridays prior to admission, but metolazone is currently on hold.
EF was 60 to 65% by echo 04/05/2025, no need to repeat this admission.
There is moderate to severe MS with peak/mean 26/13 mmHg.
Pt is currently undergoing medical therapy, his candidacy for eval for TMVR is unclear
Patient has a previous TAVR with peak/mean 37/22 mmHg by echo 3 months ago
Outpatient dose of Toprol XL 25 mg BID has been continued
Patient with known history of paroxysmal A-fib and in sinus with AV pacing on telemetry
Cont outpt amiodarone 200 mg daily with stable QTc
Cont Eliquis 2.5 mg BID outpt dose
Patient indicates he would be interested in Watchman, not clear if he is a candidate for this given underlying dementia.
Device check in the office on 07/11/2025 showed normal device and lead function without significant arrhythmia and good battery life
Hx CAD: Patient had LAD PCI 06/21/2024 and Plavix has been stopped at this point.
Eventual rehab at [facility], he already lives there with his in an independent living cottage so he is agreeable to this.
Discussed with nursing.
Progress Note - [employer] Resource Teacher
Subjective
Date of Service: July 19, 2025
Pt seen and examined. No complaints. No chest pain or shortness of breath.
Objective
Labs:
07/19/25 06:51
07/19/25 06:51
Labs
Hgb 8.9 g/dL (13.0-18.0) L 07/19/25 06:51
Hct 28.4 % (39.0-52.0) L 07/19/25 06:51
Plt Count 140 10^3/uL (130-400) 07/19/25 06:51
Sodium 137 mmol/L (135-145) 07/19/25 06:51
Potassium 3.8 mmol/L (3.5-5.1) 07/19/25 06:51
BUN 55 mg/dl (9-20) H 07/19/25 06:51
Creatinine 1.7 mg/dL (0.7-1.3) H 07/19/25 06:51
Glucose 83 mg/dl (70-99) 07/19/25 06:51
Vital Signs and I&O:
Vital Signs
Temp Pulse Resp BP Pulse Ox
97.7 F 76 18 103/43 96
07/19/25 07:35 07/19/25 07:57 07/19/25 07:35 07/19/25 07:57 07/19/25 07:35
Vital Signs
Temp Pulse Resp BP Pulse Ox
97.7 F 76 18 103/43 96
07/19/25 07:35 07/19/25 07:57 07/19/25 07:35 07/19/25 07:57 07/19/25 07:35
Intake & Output
07/17/25 07/18/25 07/19/25 07/20/25
06:59 06:59 06:59 06:59
Intake Total 2019 / 2019 840 / 840 700 / 700
Output Total 1625 / 1625 1700 / 1700 900 / 900
Balance 395 / 395 -860 / -860 -200 / -200
Physical Exam
Physical Exam
General: No acute distress, AAOX3
Neck: Negative JVD
Heart: Regular, Negative S3 positive S1/S2, Negative S4, No murmur
Lungs: CTA b/l, negative wheezes/rales/rhonchi
Abd: Positive BS, NT/ND, neg rebound/rigidity/guarding
Ext: Negative cyanosis/clubbing. mild b/l edema
Neuro: nonfocal
--- NOTE | 2025-07-19 10:16 | CM ---
Reviewed the chart notes. Lasix IV continues. CM continues to be available to patient/family and is monitoring medical plan for needs at discharge.
Plan: Discharge to [facility] SNF prior to transitioning back to home.
[2025-07-19 11:37] LABS: Glucose - Point of Care 136 mg/dl (70-99)
--- NOTE | 2025-07-19 13:32 | W.PN.HOSP.TC ---
Today's Communication/Plan
-
Increase metolazone
Yuri wraps bilateral lower extremities
Elevate lower extremities
Assessment / Plan
Assessment / Plan
Gen-AAOx3, NAD
HEENT-NC, AT, anicteric, clear oral mm
Neck-supple
CV-reg, no M, +S1/S2
Lungs-clear B/L
Abd-soft, NT, ND
Ext-bilateral lower extremity edema, left upper extremity edema
Musculoskeletal-no cyanosis, clubbing
Skin-warm and dry, multiple bruises on extremities
Neuro-grossly non-focal
Psych-calm, cooperative
Acute on chronic heart failure with preserved EF -presentation with anasarca. Continue IV Lasix at higher dose, 80 mg every 12 hours. Cardiology following. Monitor weights, I's and O's.
Last echocardiogram was 04/05/2025 showing LVEF 60 to 65%, mild concentric LVH, normal RV systolic function, moderate to severe mitral stenosis.
Not much change in his body weight. Still has significant lower extremity edema.
Initiated on metolazone 2.5 mg daily by cardiology, but will increase dose to 5 mg daily given lack of response. Spoke with Dr. Burris.
Still has significant bilateral lower extremity edema. Recommend compression therapy with Yuri wraps, discussed with nursing. Recommend keeping legs elevated, discussed with patient.
FAHEEM on CKD 3A -possible cardiorenal syndrome from CHF exacerbation. Creatinine stable at 1.7.
Hyperkalemia -improved.
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 Unclear etiology. He is under the care of pain management, has been on hydrocodone/acetaminophen as needed at home. Unclear why he is not on neuropathic pain reliever.
Lyrica 25 mg daily started, patient states he is starting to feel better.
Hypothyroidism -continue levothyroxine. TSH 2.87.
DM2 with hyperglycemia -presentation with glucose of 38. Hemoglobin A1c 5.9%. Will permanently discontinue glimepiride given his age, frailty, presentation with hypoglycemia. Discussed with patient. At home he is on glimepiride, Jardiance.
Currently on low resistance aspart scale.
Glucose 83 this morning, 202 last night. Add carb controlled diet to regimen.
Paroxysmal atrial fibrillation -continue Eliquis.
Medtronic permanent pacemaker
CAD -stable.
COPD without exacerbation -continue inhalers.
Hyperlipidemia -atorvastatin.
Essential hypertension -stable.
s/p TAVR with moderate bioprosthetic stenosis
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
Chronic anemia -unclear etiology. Counts are stable.
DNR
Dispo -SNF recommended. Patient resides in [facility], he prefers to go back to [facility] independent living with home PT due to economic reasons.
Anticipated Discharge: > 48 hours
Subjective/Interval History
-
Date of Service: July 19, 2025
Patient seen and examined. No new complaints.
Objective Data
-
Labs:
Laboratory Results
07/19/25
06:51
WBC 14.5 H
Hgb 8.9 L
Hct 28.4 L
Plt Count 140
Sodium 137
Potassium 3.8
Chloride 110 H
Carbon Dioxide 22
BUN 55 H
Creatinine 1.7 H
Glucose 83
Calcium 8.1 L
Vital Signs:
Vital Signs
Temp Pulse Resp BP Pulse Ox
98.0 F 87 18 113/49 97
07/19/25 11:05 07/19/25 11:05 07/19/25 11:05 07/19/25 11:05 07/19/25 11:05
I&O
07/18/25 07/19/25 07/20/25
06:59 06:59 06:59
Intake Total 840 / 840 700 / 700
Output Total 1700 / 1700 900 / 900
Balance -860 / -860 -200 / -200
Review of Systems
-
History Source: Patient
All other systems: Reviewed and negative
[2025-07-19] MEDS: LASIX IV (15:51)
[2025-07-19 16:20] LABS: Glucose - Point of Care 254 mg/dl (70-99)
[2025-07-19] MEDS: MAGNESIUM OXIDE 400 MG PO (17:11)
[2025-07-19] MEDS: ZITHROMAX 250 MG PO (17:11)
[2025-07-19] MEDS: PROTONIX 40 MG PO (17:11)
[2025-07-19] MEDS: NOVOLOG FLEXPEN-LOW RESISTANCE 3 UNITS SC (17:12)
--- NOTE | 2025-07-19 17:57 | PTCARENOTE ---
BP during 1500 vital signs was 93/48, afternoon diuretics held per MD order. MD aware of BP. BP now is 86/43, pt is asymptomatic. MD made aware, no new orders at this time.
[2025-07-19] MEDS: NSS 250 IV (18:26)
[2025-07-19 21:26] LABS: Glucose - Point of Care 162 mg/dl (70-99)
[2025-07-19] MEDS: CARDURA 3 MG PO (21:27)
[2025-07-19] MEDS: ARICEPT 10 MG PO (21:27)
[2025-07-19] MEDS: DESENEX/MITRAZOL/ZEASORB 1 APPLIC TOPICAL (21:27)
[2025-07-19] MEDS: LIPITOR 40 MG PO (21:31)
[2025-07-19] MEDS: ZOLOFT 50 MG PO (21:32)
[2025-07-20] VITALS (7 sets, daily range): BP systolic 108–152; BP diastolic 42–85; PULSE 72; O2SAT 99; BMI 26.3
--- NOTE | 2025-07-20 02:52 | DOWNTIME ---
There was a [employer] Client Child Nurse Downtime on 07/20/2025 from 0100 to 07/20/2025 at 0235. Downtime documentation of patient's care, including medication administrations, has been reconciled in the electronic record per guidelines. Refer to the
patient's paper chart under the miscellaneous tab to see printed paper medication records and downtime forms.
[2025-07-20] MEDS: NORCO 5/325 1 TABLET PO ×2 (06:07→15:09)
[2025-07-20] MEDS: SYNTHROID 175 MCG PO (06:07)
[2025-07-20] MEDS: PULMICORT 0.5 MG INH ×2 (07:36→17:50)
[2025-07-20] MEDS: DUONEB 3 ML INH ×3 (07:36→17:50)
[2025-07-20 07:42] LABS: Glucose - Point of Care 101 mg/dl (70-99)
[2025-07-20] MEDS: NOVOLOG FLEXPEN-LOW RESISTANCE SC (07:43)
[2025-07-20 07:48] LABS: Blood Urea Nitrogen 55 mg/dl (9-20); Calcium 7.8 mg/dl (8.4-10.2); Carbon Dioxide 22 mmol/L (22-30); Chloride 110 mmol/L (98-107); Estimated Creatinine Clearance 35 ml/min; Glucose 83 mg/dl (70-99); Potassium 3.9 mmol/L (3.5-5.1); Sodium 137 mmol/L (135-145); eGFR 45.34
[2025-07-20] MEDS: DESENEX/MITRAZOL/ZEASORB 1 APPLIC TOPICAL ×2 (08:00→21:17)
[2025-07-20] MEDS: ZAROXOLYN 5 MG PO (08:54)
[2025-07-20] MEDS: ZENPEP DELAYED RELEASE CAPSULE 1 CAPSULE PO ×3 (08:54→16:36)
[2025-07-20] MEDS: TOPROL XL 25 MG PO ×2 (08:55→21:18)
[2025-07-20] MEDS: KEFLEX 500 MG PO (08:55)
[2025-07-20] MEDS: OCUVITE SOFTGEL 1 CAP PO ×2 (08:55→21:18)
[2025-07-20] MEDS: DELTASONE 10 MG PO (08:55)
[2025-07-20] MEDS: PACERONE 200 MG PO (08:57)
[2025-07-20] MEDS: LASIX 80 MG IV ×2 (08:57→16:35)
[2025-07-20] MEDS: ELIQUIS 2.5 MG PO ×2 (08:58→21:19)
[2025-07-20] MEDS: LYRICA 25 MG PO (08:59)
[2025-07-20] MEDS: TYLENOL 650 MG PO (09:05)
--- NOTE | 2025-07-20 09:35 | WOUNDNOTE ---
JOSE NGUYEN NOTE: Confirmed patient is on a [facility] air bed.
--- NOTE | 2025-07-20 10:47 | W.PN.CARDCBS ---
Today's Communication / Plan
-
He appears euvolemic. Check pBNP if improved, likely stable for SNF
Then would transition back to Torsemide 20 mg BID and metolazone 5 mg friday and friday.
Check BMP one week.
Cr down to 1.5 which appears to be at his baseline
Patient was taking torsemide 20 mg PO BID plus metolazone 5 mg Wednesdays and Fridays prior to admission
Impression / Plan
-
.
PCP: Dr. Dexter Meng
Primary Operations/Dispatch: Dr. Deana Palomino
Impression:
Admitted with edema/anasarca 07/15/25
FAHEEM on CKD 3a
Concern for cellulitis versus gout flare
Acute on chronic HFpEF
Paroxysmal atrial fibrillation
Chronic Eliquis anticoagulation
CAD
s/p BLADIMIR to mid LAD 01/13/2020
s/p BLADIMIR to prox LAD 06/21/2024
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
MS/MR, mild to mod by echo 2023
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
COPD
Carotid stenosis
Hypertension
Hyperlipidemia
Hypothyroidism
Type 2 DM
Renal insufficiency
Frequent PVCs, NSVT
DNR code status
Echo 06/18/2024: EF 50 to 55%, stage II diastolic dysfunction, mild to moderate MS with peak/mean gradient 16/8 mmHg, moderate MR, severely dilated left atrium, status post number 26 mm TAVR with peak/mean gradients of 25/17 mmHg, trace AR, trace TR,
PAP 30 mmHg
ECHO 04/05/2025: EF 60 to 65%, no regional wall motion abnormalities noted, mild concentric LVH, moderate to severe MS with peak/mean gradients 26/13 mmHg, Fleming ROSARIO #26 TAVR with peak/mean gradients 37/22 mmHg, trace TR, PAP 50 to 55 mmHg
Plan:
He appears euvolemic. Check pBNP if improved, likely stable for SNF
Then would transition back to Torsemide 20 mg BID and metolazone 5 mg friday and friday.
Check BMP one week.
Cr down to 1.5 which appears to be at his baseline
Patient was taking torsemide 20 mg PO BID plus metolazone 5 mg Wednesdays and Fridays prior to admission
EF was 60 to 65% by echo 04/05/2025, no need to repeat this admission.
There is moderate to severe MS with peak/mean 26/13 mmHg.
Pt is currently undergoing medical therapy, his candidacy for eval for TMVR is unclear
Patient has a previous TAVR with peak/mean 37/22 mmHg by echo 3 months ago
Outpatient dose of Toprol XL 25 mg BID has been continued
Patient with known history of paroxysmal A-fib and in sinus with AV pacing on telemetry
Cont outpt amiodarone 200 mg daily with stable QTc
Cont Eliquis 2.5 mg BID outpt dose
Patient indicates he would be interested in Watchman, not clear if he is a candidate for this given underlying dementia.
Device check in the office on 07/11/2025 showed normal device and lead function without significant arrhythmia and good battery life
Hx CAD: Patient had LAD PCI 06/21/2024 and Plavix has been stopped at this point.
Eventual rehab at [facility], he already lives there with his in an independent living cottage so he is agreeable to this.
Discussed with primary service.
Progress Note - Operations/Dispatch
Subjective
Date of Service: July 20, 2025
Pt seen and examined. No cp or dyspnea.
Objective
Labs:
07/19/25 06:51
07/20/25 06:47
Labs
Hgb 8.9 g/dL (13.0-18.0) L 07/19/25 06:51
Hct 28.4 % (39.0-52.0) L 07/19/25 06:51
Plt Count 140 10^3/uL (130-400) 07/19/25 06:51
Sodium 137 mmol/L (135-145) 07/20/25 06:47
Potassium 3.9 mmol/L (3.5-5.1) 07/20/25 06:47
BUN 55 mg/dl (9-20) H 07/20/25 06:47
Creatinine 1.5 mg/dL (0.7-1.3) H 07/20/25 06:47
Glucose 83 mg/dl (70-99) 07/20/25 06:47
Vital Signs and I&O:
Vital Signs
Temp Pulse Resp BP Pulse Ox
98.0 F 76 18 119/82 99
07/20/25 07:52 07/20/25 08:57 07/20/25 07:52 07/20/25 08:57 07/20/25 09:55
Vital Signs
Temp Pulse Resp BP Pulse Ox
98.0 F 76 18 119/82 99
07/20/25 07:52 07/20/25 08:57 07/20/25 07:52 07/20/25 08:57 07/20/25 09:55
Intake & Output
07/18/25 07/19/25 07/20/25 07/21/25
06:59 06:59 06:59 06:59
Intake Total 840 / 840 700 / 700 1310 / 1310
Output Total 1700 / 1700 900 / 900 1150 / 1150
Balance -860 / -860 -200 / -200 160 / 160
Physical Exam
Physical Exam
General: No acute distress, AAOX3
Neck: Negative JVD
Heart: Regular, Negative S3 positive S1/S2, Negative S4, No murmur
Lungs: CTA b/l, negative wheezes/rales/rhonchi
Abd: Positive BS, NT/ND, neg rebound/rigidity/guarding
Ext: Negative cyanosis/clubbing. mild lymphedema leg wraps c/d/i
Neuro: nonfocal
--- NOTE | 2025-07-20 10:49 | W.PN.HOSP.TC ---
Today's Communication/Plan
-
Add colchicine
Continue diuretics
stop cephalexin
Assessment / Plan
Assessment / Plan
Gen-AAOx3, NAD
HEENT-NC, AT, anicteric, clear oral mm
Neck-supple
CV-reg, no M, +S1/S2
Lungs-clear B/L
Abd-soft, NT, ND
Ext-bilateral lower extremity edema, left upper extremity edema, Yuri wraps bilateral lower extremities
Musculoskeletal-no cyanosis, clubbing, left great toe with metatarsal head erythema and tenderness, some pain with range of motion of the first toe
Skin-warm and dry, multiple bruises on extremities
Neuro-grossly non-focal
Psych-calm, cooperative
Acute on chronic heart failure with preserved EF -presentation with anasarca. Continue IV Lasix at higher dose, 80 mg every 12 hours, metolazone 5 mg daily. Cardiology following. Monitor weights, I's and O's.
Last echocardiogram was 04/05/2025 showing LVEF 60 to 65%, mild concentric LVH, normal RV systolic function, moderate to severe mitral stenosis.
Not much change in his body weight. Still has significant lower extremity edema.
Continue compression therapy for both legs, Yuri wraps. Continue leg elevation.
Episode of hypotension on 07/19 requiring IV fluid bolus and holding evening dose of Lasix. Blood pressure improved.
FAHEEM on CKD 3A -possible cardiorenal syndrome from CHF exacerbation. Creatinine improving, 1.5.
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 Add colchicine. 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 Gout versus pseudogout. He was
treated with a course of prednisone and colchicine.
Hyperkalemia -improved.
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 Unclear etiology. He is under the care of pain management, has been on hydrocodone/acetaminophen as needed at home. Unclear why he is not on neuropathic pain reliever.
Lyrica 25 mg daily started, patient states he is starting to feel better.
Multiple skin tears -noted by wound care nurse. No evidence of cellulitis. Discontinue cephalexin. It was started on July 11 by his financial foundations representative. ECW notes reviewed.
Dermal skin tears noted in upper extremities, left sided scabbed skin tear to the left hand, left upper posterior calf, right hill. Small dermal opening on the left hill with moderate serous drainage. Sacral dermals linear small stage II pressure
injury versus MASD with blanchable sacral red skin.
Hypothyroidism -continue levothyroxine. TSH 2.87.
DM2 with hyperglycemia -presentation with glucose of 38. Hemoglobin A1c 5.9%. Will permanently discontinue glimepiride given his age, frailty, presentation with hypoglycemia. Discussed with patient. At home he is on glimepiride, Jardiance.
Currently on low resistance aspart scale.
Glucose 101 this morning, 162 last night. Continue diabetic diet.
Paroxysmal atrial fibrillation -continue Eliquis.
Medtronic permanent pacemaker
CAD -stable.
COPD without exacerbation -continue inhalers. Steroid-dependent, continue chronic prednisone.
Hyperlipidemia -atorvastatin.
Essential hypertension -stable.
s/p TAVR with moderate bioprosthetic stenosis
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
Chronic anemia -unclear etiology. Counts are stable.
DNR
Dispo -SNF recommended. Patient resides in [facility], he prefers to go back to [facility] independent living with home PT due to economic reasons.
Anticipated Discharge: > 48 hours
Subjective/Interval History
-
Date of Service: July 20, 2025
Patient seen and examined. Complaining of pain in the left foot around the big toe.
Objective Data
-
Labs:
Laboratory Results
07/20/25
06:47
Sodium 137
Potassium 3.9
Chloride 110 H
Carbon Dioxide 22
BUN 55 H
Creatinine 1.5 H
Glucose 83
Calcium 7.8 L
Vital Signs:
Vital Signs
Temp Pulse Resp BP Pulse Ox
98.0 F 76 18 119/82 99
07/20/25 07:52 07/20/25 08:57 07/20/25 07:52 07/20/25 08:57 07/20/25 09:55
I&O
07/19/25 07/20/25 07/21/25
06:59 06:59 06:59
Intake Total 700 / 700 1310 / 1310
Output Total 900 / 900 1150 / 1150
Balance -200 / -200 160 / 160
Review of Systems
-
History Source: Patient
All other systems: Reviewed and negative
[2025-07-20] MEDS: COLCHICINE 0.6 MG PO (11:19)
[2025-07-20 12:02] LABS: Glucose - Point of Care 158 mg/dl (70-99)
[2025-07-20] MEDS: NOVOLOG FLEXPEN-LOW RESISTANCE 1 UNITS SC (12:04)
--- NOTE | 2025-07-20 14:32 | CM ---
Reviewed the chart notes and spoke with Veda [employer] of [facility]. Bed will be available for the patient on Friday on the termite inspector care side. This would be a temporary situation. Patient will go down to short term gym for
therapy. Explained to patient and he is agreeable to this plan. CM continues to be available to patient/family and is monitoring medical plan for needs at discharge.
Plan: Discharge to [facility] on Friday. Precert will be required. CM asked to supply NPIs in [facility].
[2025-07-20 16:27] LABS: Glucose - Point of Care 209 mg/dl (70-99)
[2025-07-20] MEDS: NOVOLOG FLEXPEN-LOW RESISTANCE 2 UNITS SC (17:11)
[2025-07-20] MEDS: ZITHROMAX 250 MG PO (17:12)
[2025-07-20] MEDS: PROTONIX 40 MG PO (17:12)
[2025-07-20] MEDS: MAGNESIUM OXIDE 400 MG PO (17:12)
[2025-07-20 20:48] LABS: Glucose - Point of Care 212 mg/dl (70-99)
[2025-07-20] MEDS: LIPITOR 40 MG PO (21:19)
[2025-07-20] MEDS: ARICEPT 10 MG PO (21:19)
[2025-07-20] MEDS: ZOLOFT 50 MG PO (21:19)
[2025-07-20] MEDS: CARDURA 3 MG PO (21:19)
[2025-07-21] MEDS: NORCO 5/325 1 TABLET PO ×3 (00:02→19:09)
[2025-07-21 03:20] VITALS: BP 94/49
[2025-07-21 05:23] VITALS: BMI 26.2
[2025-07-21] MEDS: SYNTHROID 175 MCG PO (05:54)
[2025-07-21] MEDS: TYLENOL 650 MG PO ×2 (05:56→17:06)
[2025-07-21 07:35] VITALS: BP 108/75
[2025-07-21] MEDS: DUONEB 3 ML INH ×3 (07:37→19:26)
[2025-07-21] MEDS: PULMICORT 0.5 MG INH ×2 (07:37→19:26)
[2025-07-21 07:54] LABS: Glucose - Point of Care 104 mg/dl (70-99)
[2025-07-21] MEDS: NOVOLOG FLEXPEN-LOW RESISTANCE SC ×2 (08:07→12:24)
[2025-07-21] MEDS: LYRICA 25 MG PO (08:09)
[2025-07-21] MEDS: TOPROL XL 25 MG PO ×2 (08:09→20:41)
[2025-07-21] MEDS: PACERONE 200 MG PO (08:09)
[2025-07-21] MEDS: ELIQUIS 2.5 MG PO ×2 (08:09→20:41)
[2025-07-21] MEDS: DELTASONE 10 MG PO (08:09)
[2025-07-21] MEDS: OCUVITE SOFTGEL 1 CAP PO ×2 (08:09→20:42)
[2025-07-21] MEDS: ZENPEP DELAYED RELEASE CAPSULE 1 CAPSULE PO ×3 (08:09→17:09)
[2025-07-21] MEDS: COLCHICINE 0.6 MG PO (08:09)
[2025-07-21] MEDS: ZAROXOLYN 5 MG PO (08:09)
[2025-07-21] MEDS: LASIX 80 MG IV ×2 (08:09→17:09)
[2025-07-21] MEDS: DESENEX/MITRAZOL/ZEASORB 1 APPLIC TOPICAL ×2 (08:10→20:44)
[2025-07-21 08:12] LABS: Blood Urea Nitrogen 55 mg/dl (9-20); Calcium 8.0 mg/dl (8.4-10.2); Carbon Dioxide 25 mmol/L (22-30); Chloride 109 mmol/L (98-107); Estimated Creatinine Clearance 33 ml/min; Glucose 81 mg/dl (70-99); Potassium 3.7 mmol/L (3.5-5.1); Sodium 136 mmol/L (135-145); eGFR 41.96
--- NOTE | 2025-07-21 10:40 | W.PN.HOSP.TC ---
Addendum entered and electronically signed by Abel Walker DO 07/21/25 14:32:
I updated patient's daughter Yolanda on the phone. All questions answered. She understands that plan is to discharge to rehab on Sunday 07/22.
Original Note:
Today's Communication/Plan
-
Continue current care
Assessment / Plan
Assessment / Plan
Gen-AAOx3, NAD
HEENT-NC, AT, anicteric, clear oral mm
Neck-supple
CV-reg, no M, +S1/S2
Lungs-clear B/L
Abd-soft, NT, ND
Ext-bilateral lower extremity edema, left upper extremity edema, Yuri wraps bilateral lower extremities
Musculoskeletal-no cyanosis, clubbing, left great toe improved erythema and range of motion, less tender at metatarsal head
Skin-warm and dry, multiple bruises on extremities
Neuro-grossly non-focal
Psych-calm, cooperative
Acute on chronic heart failure with preserved EF -presentation with anasarca. Continue IV Lasix at higher dose, 80 mg every 12 hours, metolazone 5 mg daily. Cardiology following. Monitor weights, I's and O's.
Last echocardiogram was 04/05/2025 showing LVEF 60 to 65%, mild concentric LVH, normal RV systolic function, moderate to severe mitral stenosis.
Not much change in his body weight. Still has significant lower extremity edema.
Continue compression therapy for both legs, Yuri wraps. Continue leg elevation.
Episode of hypotension on 07/19 requiring IV fluid bolus and holding evening dose of Lasix. Blood pressure improved.
Spoke with cardiology (Dr. Jones), likely increase Lasix dose today.
FAHEEM on CKD 3A -possible cardiorenal syndrome from CHF exacerbation. Creatinine stable at 1.6.
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 Improving on colchicine. 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 Gout versus pseudogout.
He was treated with a course of prednisone and colchicine.
Hyperkalemia -improved.
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 Unclear etiology. He is under the care of pain management, has been on hydrocodone/acetaminophen as needed at home. Unclear why he is not on neuropathic pain reliever.
Lyrica 25 mg daily started, patient states he is starting to feel better.
Multiple skin tears -noted by wound care nurse. No evidence of cellulitis. Discontinued cephalexin. It was started on July 11 by his business intern. ECW notes reviewed.
Dermal skin tears noted in upper extremities, left sided scabbed skin tear to the left hand, left upper posterior calf, right hill. Small dermal opening on the left hill with moderate serous drainage. Sacral dermals linear small stage II pressure
injury versus MASD with blanchable sacral red skin.
Hypothyroidism -continue levothyroxine. TSH 2.87.
DM2 with hyperglycemia -presentation with glucose of 38. Hemoglobin A1c 5.9%. Will permanently discontinue glimepiride given his age, frailty, presentation with hypoglycemia. Discussed with patient. At home he is on glimepiride, Jardiance.
Currently on low resistance aspart scale.
Glucose 81 this morning, 212 last night. Continue diabetic diet.
Paroxysmal atrial fibrillation -continue Eliquis.
Medtronic permanent pacemaker
CAD -stable.
COPD without exacerbation -continue inhalers. Steroid-dependent, continue chronic prednisone.
Hyperlipidemia -atorvastatin.
Essential hypertension -stable.
s/p TAVR with moderate bioprosthetic stenosis
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
Chronic anemia -unclear etiology. Counts are stable.
DNR
Dispo -SNF recommended. Patient resides in [facility], he prefers to go back to [facility] independent living with home PT due to economic reasons. Possible discharge 07/22 if stable and cleared by cardiology.
Anticipated Discharge: Within 24 hours
Subjective/Interval History
-
Date of Service: July 21, 2025
Patient seen and examined. States his left foot is improved, less pain today.
Objective Data
-
Labs:
Laboratory Results
07/21/25
06:44
Sodium 136
Potassium 3.7
Chloride 109 H
Carbon Dioxide 25
BUN 55 H
Creatinine 1.6 H
Glucose 81
Calcium 8.0 L
Vital Signs:
Vital Signs
Temp Pulse Resp BP Pulse Ox
98.1 F 71 18 108/75 97
07/21/25 07:35 07/21/25 07:42 07/21/25 07:42 07/21/25 07:35 07/21/25 07:42
I&O
07/20/25 07/21/25 07/22/25
06:59 06:59 06:59
Intake Total 1310 / 1310 1740 / 1740
Output Total 1150 / 1150 1325 / 1325
Balance 160 / 160 415 / 415
Review of Systems
-
History Source: Patient
All other systems: Reviewed and negative
--- NOTE | 2025-07-21 10:53 | W.PN.CARDCBS ---
Today's Communication / Plan
-
Weight is overall stable and proBNP is down. He has lost about 10 pounds.
Continue Lasix 80 IV twice daily for now and then would switch to torsemide 30 mg p.o. twice daily upon discharge. Will discharge on metolazone 5 mg Friday.
Creatinine overall stable at 1.6.
Would consider metoprolol and amiodarone.
QTc is stable on amiodarone and a Zithromax but this is not an ideal antibiotic choice.
Impression / Plan
-
.
PCP: Dr. Dexter Meng
Primary [employer] Flatbed Driver: Dr. Deana Palomino
Impression:
Admitted with edema/anasarca 07/15/25
FAHEEM on CKD 3a
Concern for cellulitis versus gout flare
Acute on chronic HFpEF
Paroxysmal atrial fibrillation
Chronic Eliquis anticoagulation
CAD
s/p BLADIMIR to mid LAD 01/13/2020
s/p BLADIMIR to prox LAD 06/21/2024
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
MS/MR, mild to mod by echo 2023
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
COPD
Carotid stenosis
Hypertension
Hyperlipidemia
Hypothyroidism
Type 2 DM
Renal insufficiency
Frequent PVCs, NSVT
DNR code status
Echo 06/18/2024: EF 50 to 55%, stage II diastolic dysfunction, mild to moderate MS with peak/mean gradient 16/8 mmHg, moderate MR, severely dilated left atrium, status post number 26 mm TAVR with peak/mean gradients of 25/17 mmHg, trace AR, trace TR,
PAP 30 mmHg
ECHO 04/05/2025: EF 60 to 65%, no regional wall motion abnormalities noted, mild concentric LVH, moderate to severe MS with peak/mean gradients 26/13 mmHg, Fleming ROSARIO #26 TAVR with peak/mean gradients 37/22 mmHg, trace TR, PAP 50 to 55 mmHg
Plan:
Weight is overall stable. Creatinine stable at 1.6. Will continue IV Lasix for now. proBNP improved to 2500. Upon discharge would switch to
Torsemide 30 mg PO BID plus metolazone 5 mg Wednesdays and Fridays prior to admission
EF was 60 to 65% by echo 04/05/2025, no need to repeat this admission.
There is moderate to severe MS with peak/mean 26/13 mmHg.
Pt is currently undergoing medical therapy, his candidacy for eval for TMVR is unclear. Could consider [facility] as outpatient.
Patient has a previous TAVR with peak/mean 37/22 mmHg by echo 3 months ago
Outpatient dose of Toprol XL 25 mg BID has been continued
Patient with known history of paroxysmal A-fib and in sinus with AV pacing on telemetry
Cont outpt amiodarone 200 mg daily with stable QTc
Cont Eliquis 2.5 mg BID outpt dose
Patient indicates he would be interested in Watchman, not clear if he is a candidate for this given underlying dementia.
Device check in the office on 07/11/2025 showed normal device and lead function without significant arrhythmia and good battery life
Hx CAD: Patient had LAD PCI 06/21/2024 and Plavix has been stopped at this point.
Eventual rehab at [facility], he already lives there with his in an independent living cottage so he is agreeable to this.
Discussed with primary service.
Progress Note - [employer] Flatbed Driver
Subjective
Date of Service: July 21, 2025
Breathing is overall stable. Still has some edema and weight is down about 10 pounds.
Objective
Labs:
07/19/25 06:51
07/21/25 06:44
Labs
Hgb 8.9 g/dL (13.0-18.0) L 07/19/25 06:51
Hct 28.4 % (39.0-52.0) L 07/19/25 06:51
Plt Count 140 10^3/uL (130-400) 07/19/25 06:51
Sodium 136 mmol/L (135-145) 07/21/25 06:44
Potassium 3.7 mmol/L (3.5-5.1) 07/21/25 06:44
BUN 55 mg/dl (9-20) H 07/21/25 06:44
Creatinine 1.6 mg/dL (0.7-1.3) H 07/21/25 06:44
Glucose 81 mg/dl (70-99) 07/21/25 06:44
Vital Signs and I&O:
Vital Signs
Temp Pulse Resp BP Pulse Ox
98.1 F 71 18 108/75 97
07/21/25 07:35 07/21/25 07:42 07/21/25 07:42 07/21/25 07:35 07/21/25 07:42
Vital Signs
Temp Pulse Resp BP Pulse Ox
98.1 F 71 18 108/75 97
07/21/25 07:35 07/21/25 07:42 07/21/25 07:42 07/21/25 07:35 07/21/25 07:42
Intake & Output
07/19/25 07/20/25 07/21/25 07/22/25
06:59 06:59 06:59 06:59
Intake Total 700 / 700 1310 / 1310 1740 / 1740
Output Total 900 / 900 1150 / 1150 1325 / 1325
Balance -200 / -200 160 / 160 415 / 415
Physical Exam
Physical Exam
GEN: No distress, awake, Ox3
HEENT: supple, anicteric, mmm
LUNGS: CTA, no wheezes/rales
CV: Reg, S1/S2, 1/6 syst LSB, no gallop
ABD: soft, BS+, NT/ND
EXT: No edema
NEURO: Gross non-focal
SKIN: chronci stasis changes
[2025-07-21 11:00] VITALS: BP 102/57
[2025-07-21 11:10] LABS: Glucose - Point of Care 139 mg/dl (70-99)
[2025-07-21 11:51] LABS: Glucose - Point of Care 126 mg/dl (70-99)
[2025-07-21 15:25] VITALS: BP 104/50
[2025-07-21 16:33] LABS: Glucose - Point of Care 228 mg/dl (70-99)
[2025-07-21] MEDS: MAGNESIUM OXIDE 400 MG PO (17:09)
[2025-07-21] MEDS: ZITHROMAX 250 MG PO (17:09)
[2025-07-21] MEDS: PROTONIX 40 MG PO (17:09)
[2025-07-21] MEDS: NOVOLOG FLEXPEN-LOW RESISTANCE 2 UNITS SC (17:12)
[2025-07-21 19:19] VITALS: BP 101/57
[2025-07-21] MEDS: ARICEPT 10 MG PO (20:41)
[2025-07-21] MEDS: ZOLOFT 50 MG PO (20:41)
[2025-07-21] MEDS: CARDURA 3 MG PO (20:42)
[2025-07-21] MEDS: LIPITOR 40 MG PO (20:42)
[2025-07-21 21:52] LABS: Glucose - Point of Care 138 mg/dl (70-99)
[2025-07-21 23:15] VITALS: BP 106/52
[2025-07-22 03:32] VITALS: BP 122/51
[2025-07-22] MEDS: NORCO 5/325 1 TABLET PO ×2 (04:16→11:47)
[2025-07-22 06:00] VITALS: BMI 25.9
[2025-07-22] MEDS: SYNTHROID 175 MCG PO (06:30)
[2025-07-22] MEDS: DUONEB 3 ML INH ×2 (07:32→13:23)
[2025-07-22] MEDS: PULMICORT 0.5 MG INH (07:32)
[2025-07-22 07:36] LABS: Glucose - Point of Care 102 mg/dl (70-99)
[2025-07-22 07:38] VITALS: BP 111/54
[2025-07-22] MEDS: NOVOLOG FLEXPEN-LOW RESISTANCE SC ×2 (07:39→11:46)
[2025-07-22 07:55] LABS: Blood Urea Nitrogen 57 mg/dl (9-20); Calcium 8.0 mg/dl (8.4-10.2); Carbon Dioxide 27 mmol/L (22-30); Chloride 105 mmol/L (98-107); Estimated Creatinine Clearance 35 ml/min; Glucose 87 mg/dl (70-99); Potassium 3.2 mmol/L (3.5-5.1); Sodium 136 mmol/L (135-145); eGFR 45.34
[2025-07-22] MEDS: COLCHICINE 0.6 MG PO (08:31)
[2025-07-22] MEDS: TOPROL XL 25 MG PO (08:32)
[2025-07-22] MEDS: LYRICA 25 MG PO (08:32)
[2025-07-22] MEDS: PACERONE 200 MG PO (08:33)
[2025-07-22] MEDS: OCUVITE SOFTGEL 1 CAP PO (08:33)
[2025-07-22] MEDS: DELTASONE 10 MG PO (08:34)
[2025-07-22] MEDS: ZAROXOLYN 5 MG PO (08:34)
[2025-07-22] MEDS: ELIQUIS 2.5 MG PO (08:34)
[2025-07-22] MEDS: LASIX 80 MG IV (08:36)
[2025-07-22] MEDS: DESENEX/MITRAZOL/ZEASORB 1 APPLIC TOPICAL (08:37)
[2025-07-22] MEDS: TYLENOL 650 MG PO (08:43)
[2025-07-22] MEDS: ZENPEP DELAYED RELEASE CAPSULE 1 CAPSULE PO ×3 (08:43→16:04)
[2025-07-22 09:49] VITALS: BP 101/50; BP 110/53; PULSE 87; O2SAT 97
--- NOTE | 2025-07-22 09:58 | CM ---
Addendum entered by Lizz West RN 07/22/25 16:10:
Patient has chosen wheelchair van. Daughter provided with contact information for payment. 1700 p/u.
Addendum entered by Lizz West RN 07/22/25 15:09:
Received call from Dedra with insurance. Approved for 7 days (07/22-07/28); NRD 07/28 call report to [phone]; Auth # [id number].
Call report to: [phone]
Fax report to: [phone]
Addendum entered by Lizz West RN 07/22/25 12:55:
Pended auth # [id number]. CM spoke with Damaris with insurance. Case needs to go to [employer]. Await decision.
Original Note:
Reviewed the chart notes and spoke with the patient at the bedside. IMM reviewed. CM continues to be available to patient/family and is monitoring medical plan for needs at discharge.
Plan: Discharge to [facility] today. Auth needed.
Dr. Jaun Gutierrez - NPI #[id number]
[facility] - NPI #[id number]
--- NOTE | 2025-07-22 09:58 | W.PN.HOSP.TC ---
Today's Communication/Plan
-
Increase Lyrica
Discharge planning
Assessment / Plan
Assessment / Plan
Gen-AAOx3, NAD
HEENT-NC, AT, anicteric, clear oral mm
Neck-supple
CV-reg, no M, +S1/S2
Lungs-clear B/L
Abd-soft, NT, ND
Ext-bilateral lower extremity edema, left upper extremity edema, Yuri wraps bilateral lower extremities
Musculoskeletal-no cyanosis, clubbing, left great toe improved erythema and range of motion, less tender at metatarsal head
Skin-warm and dry, multiple bruises on extremities
Neuro-grossly non-focal
Psych-calm, cooperative
Acute on chronic heart failure with preserved EF -presentation with anasarca. Continue IV Lasix at higher dose, 80 mg every 12 hours, metolazone 5 mg daily. Cardiology following. Monitor weights, I's and O's.
Last echocardiogram was 04/05/2025 showing LVEF 60 to 65%, mild concentric LVH, normal RV systolic function, moderate to severe mitral stenosis.
Not much change in his body weight. Still has significant lower extremity edema.
Continue compression therapy for both legs, Yuri wraps. Continue leg elevation.
Episode of hypotension on 07/19 requiring IV fluid bolus and holding evening dose of Lasix. Blood pressure improved.
Cardiology recommends transitioning back to torsemide 30 mg twice daily along with metolazone Friday on discharge. Cardiology okay with discharge today.
FAHEEM on CKD 3A -possible cardiorenal syndrome from CHF exacerbation. Creatinine stable at 1.6.
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 Improving on colchicine. 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 Gout versus pseudogout.
He was treated with a course of prednisone and colchicine.
Hyperkalemia -improved.
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 Unclear etiology. He is under the care of pain management, has been on hydrocodone/acetaminophen as needed at home. Unclear why he is not on neuropathic pain reliever.
Given ongoing complaints of pain will increase Lyrica to twice daily.
Multiple skin tears -noted by wound care nurse. No evidence of cellulitis. Discontinued cephalexin. It was started on July 11 by his placement assistant. ECW notes reviewed.
Dermal skin tears noted in upper extremities, left sided scabbed skin tear to the left hand, left upper posterior calf, right hill. Small dermal opening on the left hill with moderate serous drainage. Sacral dermals linear small stage II pressure
injury versus MASD with blanchable sacral red skin.
Hypothyroidism -continue levothyroxine. TSH 2.87.
DM2 with hyperglycemia -presentation with glucose of 38. Hemoglobin A1c 5.9%. Will permanently discontinue glimepiride given his age, frailty, presentation with hypoglycemia. Discussed with patient. At home he is on glimepiride, Jardiance.
Currently on low resistance aspart scale.
Glucose 81 this morning, 212 last night. Continue diabetic diet.
Paroxysmal atrial fibrillation -continue Eliquis.
Medtronic permanent pacemaker
CAD -stable.
COPD without exacerbation -continue inhalers. Steroid-dependent, continue chronic prednisone.
Hyperlipidemia -atorvastatin.
Essential hypertension -stable.
s/p TAVR with moderate bioprosthetic stenosis
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
Chronic anemia -unclear etiology. Counts are stable.
DNR
Dispo -medically stable for discharge to [facility] rehab today. Awaiting insurance authorization according to case management.
Anticipated Discharge: Today
Subjective/Interval History
-
Date of Service: July 22, 2025
Patient seen and examined. Complaining of sharp shooting pain down the left leg.
Objective Data
-
Labs:
Laboratory Results
07/22/25
06:51
Sodium 136
Potassium 3.2 L
Chloride 105
Carbon Dioxide 27
BUN 57 H
Creatinine 1.5 H
Glucose 87
Calcium 8.0 L
Vital Signs:
Vital Signs
Temp Pulse Resp BP Pulse Ox
97.9 F 78 18 111/54 96
07/22/25 07:38 07/22/25 08:34 07/22/25 07:38 07/22/25 08:34 07/22/25 09:37
I&O
07/21/25 07/22/25 07/23/25
06:59 06:59 06:59
Intake Total 1740 / 1740 1220 / 1220
Output Total 1325 / 1325 1400 / 1400
Balance 415 / 415 -180 / -180
Review of Systems
-
History Source: Patient
All other systems: Reviewed and negative
--- NOTE | 2025-07-22 10:06 | W.DS.TRANS ---
DC Summary - [facility]
-
Discharge Instructions:
Sleep Apnea Risk Intermediate
Discharge Diagnosis/Procedures Acute on chronic heart failure exacerbation,
acute on chronic kidney disease
Diet Diabetic, Carb Controlled,2 Gram Sodium,Restrict
fluids to 48 oz
Activity With assistance
Driving Restrictions No driving
Bathing Restrictions None
Blood Work BMP, CBC in 1 week
Instructions:
Stand-Alone Forms:
Changes to Home Medications: No
Discharge Medications:
DC Medications w/original date entered in [employer]
cyanocobalamin (vitamin B-12) 1,000 mcg tablet 1,000 mcg PO QPM Supplement 01/13/20
levothyroxine 175 mcg tablet 175 mcg PO DAILY Thyroid 01/13/20
sertraline 50 mg tablet 50 mg PO HS Mental Health/Anxiety 01/13/20
pantoprazole 40 mg tablet,delayed release 40 mg PO QPM Gastrointestinal issue 05/15/20
budesonide 0.5 mg/2 mL suspension for nebulization 0.5 mg (2 mL) inhalation R BID 30 days ##2 05/07/21
magnesium oxide 400 mg PO QPM Supplement 03/15/22
empagliflozin 10 mg tablet (Jardiance) 10 mg PO DAILY Diabetes 04/10/22
azithromycin 250 mg tablet 250 mg PO QPM Infection 05/25/24
donepezil 10 mg tablet 10 mg PO HS Mental Health/Anxiety 05/25/24
ipratropium 0.5 mg-albuterol 3 mg (2.5 mg base)/3 mL nebulization soln 3 ml inhalation R TID Lung/Breathing Issues 05/25/24
prednisone 10 mg tablet 10 mg PO DAILY Anti-Inflammatory 05/25/24
vitamins A,C,O-vdri-cpxcpe 2,148 mcg-113 mg-45 mg-17.4 mg tablet (PreserVision AREDS) 1 tab PO BID Supplement 05/25/24
cholecalciferol (vitamin D3) 25 mcg (1,000 unit) tablet 50 mcg PO QPM Supplement 06/17/24
apixaban 2.5 mg tablet (Eliquis) 2.5 mg PO BID 30 days #60 tabs 06/22/24
doxazosin 1 mg tablet 3 mg (3 x 1 mg) PO HS 30 days #90 tabs 06/22/24
amiodarone 200 mg tablet 200 mg PO DAILY AFIB 04/05/25
atorvastatin 40 mg tablet (Lipitor) 40 mg PO HS High Cholesterol 04/05/25
metoprolol succinate 25 mg tablet,extended release 24 hr 25 mg PO BID Blood Pressure 04/05/25
sbrqpa-cmkufsbv-wcnbkzx 24,000-76,000-120,000 unit capsule,delayed rel (Creon) 1 cap PO AC 07/15/25
acetaminophen 325 mg tablet 650 mg (2 x 325 mg) PO Q6HPRN PRN mild pain/ fever>100.5F #0 tabs 07/22/25
colchicine 0.6 mg tablet 0.6 mg PO DAILY #0 tabs 07/22/25
hydrocodone 5 mg-acetaminophen 325 mg tablet 1 tab PO TIDPRN PRN severe pain #8 tabs 07/22/25
metolazone 5 mg tablet 5 mg PO MOWEFR #0 tabs 07/22/25
potassium chloride 20 mEq tablet,extended release(part/cryst) 20 meq PO BID #0 tabs 07/22/25
pregabalin 25 mg capsule 25 mg PO BID #30 caps 07/22/25
torsemide 10 mg tablet 30 mg (3 x 10 mg) PO BID #180 tabs 07/22/25
Home Medication Changes
Pending Results: No
[2025-07-22] MEDS: KCL 40 MEQ PO (10:10)
[2025-07-22 10:23] LABS: Magnesium 1.9 mg/dl (1.6-2.3)
--- NOTE | 2025-07-22 10:35 | W.PN.CARDCBS ---
Today's Communication / Plan
-
Has diuresed well. Okay for transfer to [facility] home.
We discharged on torsemide 30 mg p.o. twice daily with metolazone 5 mg Friday.
Creatinine stable at 1.5. Replete potassium.
Continue metoprolol and Eliquis.
Impression / Plan
-
.
PCP: Dr. Dexter Meng
Primary [facility]: Dr. Deana Palomino
Impression:
Admitted with edema/anasarca 07/15/25
FAHEEM on CKD 3a
Concern for cellulitis versus gout flare
Acute on chronic HFpEF
Paroxysmal atrial fibrillation
Chronic Eliquis anticoagulation
CAD
s/p BLADMIIR to mid LAD 01/13/2020
s/p BLADIMIR to prox LAD 06/21/2024
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
MS/MR, mild to mod by echo 2023
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
COPD
Carotid stenosis
Hypertension
Hyperlipidemia
Hypothyroidism
Type 2 DM
Renal insufficiency
Frequent PVCs, NSVT
DNR code status
Echo 06/18/2024: EF 50 to 55%, stage II diastolic dysfunction, mild to moderate MS with peak/mean gradient 16/8 mmHg, moderate MR, severely dilated left atrium, status post number 26 mm TAVR with peak/mean gradients of 25/17 mmHg, trace AR, trace TR,
PAP 30 mmHg
ECHO 04/05/2025: EF 60 to 65%, no regional wall motion abnormalities noted, mild concentric LVH, moderate to severe MS with peak/mean gradients 26/13 mmHg, Fleming ROSARIO #26 TAVR with peak/mean gradients 37/22 mmHg, trace TR, PAP 50 to 55 mmHg
Plan:
Weight is down to 170. Creatinine stable at 1.5. Upon discharge would switch to
Torsemide 30 mg PO BID plus metolazone 5 mg Wednesdays and Fridays prior to admission
EF was 60 to 65% by echo 04/05/2025, no need to repeat this admission.
There is moderate to severe MS with peak/mean 26/13 mmHg.
Pt is currently undergoing medical therapy, his candidacy for eval for TMVR is unclear. Could consider [facility] as outpatient.
Patient has a previous TAVR with peak/mean 37/22 mmHg by echo 3 months ago
Outpatient dose of Toprol XL 25 mg BID has been continued
Patient with known history of paroxysmal A-fib and in sinus with AV pacing on telemetry
Cont outpt amiodarone 200 mg daily with stable QTc
Cont Eliquis 2.5 mg BID outpt dose
Patient indicates he would be interested in [facility], not clear if he is a candidate for this given underlying dementia.
Device check in the office on 07/11/2025 showed normal device and lead function without significant arrhythmia and good battery life
Hx CAD: Patient had LAD PCI 06/21/2024 and Plavix has been stopped at this point.
Eventual rehab at [facility], he already lives there with his in an independent living cottage so he is agreeable to this.
Discussed with primary service.
Progress Note - [facility]
Subjective
Date of Service: July 22, 2025
Overall doing well. Breathing is much improved. He has diuresed well.
Objective
Labs:
07/19/25 06:51
07/22/25 06:51
Labs
Hgb 8.9 g/dL (13.0-18.0) L 07/19/25 06:51
Hct 28.4 % (39.0-52.0) L 07/19/25 06:51
Plt Count 140 10^3/uL (130-400) 07/19/25 06:51
Sodium 136 mmol/L (135-145) 07/22/25 06:51
Potassium 3.2 mmol/L (3.5-5.1) L 07/22/25 06:51
BUN 57 mg/dl (9-20) H 07/22/25 06:51
Creatinine 1.5 mg/dL (0.7-1.3) H 07/22/25 06:51
Glucose 87 mg/dl (70-99) 07/22/25 06:51
Vital Signs and I&O:
Vital Signs
Temp Pulse Resp BP Pulse Ox
97.9 F 78 18 111/54 96
07/22/25 07:38 07/22/25 08:34 07/22/25 07:38 07/22/25 08:34 07/22/25 09:37
Vital Signs
Temp Pulse Resp BP Pulse Ox
97.9 F 78 18 111/54 96
07/22/25 07:38 07/22/25 08:34 07/22/25 07:38 07/22/25 08:34 07/22/25 09:37
Intake & Output
07/20/25 07/21/25 07/22/25 07/23/25
06:59 06:59 06:59 06:59
Intake Total 1310 / 1310 1740 / 1740 1220 / 1220
Output Total 1150 / 1150 1325 / 1325 1400 / 1400
Balance 160 / 160 415 / 415 -180 / -180
Physical Exam
Physical Exam
GEN: No distress, awake, Ox3
HEENT: supple, anicteric, mmm
LUNGS: CTA, no wheezes/rales
CV: Reg, S1/S2, 1/6 syst LSB, no gallop
ABD: soft, BS+, NT/ND
EXT: trace edema
NEURO: Gross non-focal
SKIN: No rash
[2025-07-22 11:15] VITALS: BP 103/48; BP 73/48; BP 83/46; PULSE 77; PULSE 84
[2025-07-22 11:32] VITALS: BP 100/49
[2025-07-22 11:32] LABS: Glucose - Point of Care 133 mg/dl (70-99)
[2025-07-22 12:50] LABS: COVID-19 Antigen Negative (Negative)
[2025-07-22 16:00] VITALS: BP 108/47
[2025-07-22] MEDS: LASIX IV (16:02)
[2025-07-22] MEDS: NOVOLOG FLEXPEN-LOW RESISTANCE 1 UNITS SC (16:06)
[2025-07-22 16:07] LABS: Glucose - Point of Care 192 mg/dl (70-99)
== END 2025-07-22 17:40 | DRG 291 ==
LOC: 2 NORTH 19:15
PROVIDERS: Emergency Medicine; Nuclear Medicine Nuclear Cardiology; Registered Nurse; ADMITTING PHYSICIAN Internal Medicine; ATTENDING PHYSICIAN Hospitalist; CONSULT PHYSICIAN Internal Medicine Cardiovascular Disease; EMERGENCY PHYSICIAN Emergency Medicine; FAMILY PHYSICIAN Internal Medicine
DX: I13.0 Hypertensive heart and chronic kidney disease with heart failure and stage 1 through stage 4 chronic kidney disease, or unspecified chronic kidney disease (principal); I50.33 Acute on chronic diastolic (congestive) heart failure; N17.9 Acute kidney failure, unspecified; I47.20 Ventricular tachycardia, unspecified; J84.9 Interstitial pulmonary disease, unspecified; L03.113 Cellulitis of right upper limb; N18.31 Chronic kidney disease, stage 3a; E11.22 Type 2 diabetes mellitus with diabetic chronic kidney disease; E87.5 Hyperkalemia; M19.072 Primary osteoarthritis, left ankle and foot; M10.9 Gout, unspecified; G57.92 Unspecified mononeuropathy of left lower limb; E11.41 Type 2 diabetes mellitus with diabetic mononeuropathy; E78.00 Pure hypercholesterolemia, unspecified; F41.9 Anxiety disorder, unspecified; I48.0 Paroxysmal atrial fibrillation; Z79.01 Long term (current) use of anticoagulants; I25.10 Atherosclerotic heart disease of native coronary artery without angina pectoris; Z95.2 Presence of prosthetic heart valve; J44.9 Chronic obstructive pulmonary disease, unspecified; E03.9 Hypothyroidism, unspecified; I49.3 Ventricular premature depolarization; Z66 Do not resuscitate; Z95.5 Presence of coronary angioplasty implant and graft; E11.649 Type 2 diabetes mellitus with hypoglycemia without coma; Z87.891 Personal history of nicotine dependence; Z98.41 Cataract extraction status, right eye; Z95.0 Presence of cardiac pacemaker; Z79.890 Hormone replacement therapy; Z79.84 Long term (current) use of oral hypoglycemic drugs; Z79.51 Long term (current) use of inhaled steroids; K86.81 Exocrine pancreatic insufficiency; D63.1 Anemia in chronic kidney disease; F32.A Depression, unspecified; G47.33 Obstructive sleep apnea (adult) (pediatric); G89.29 Other chronic pain; I45.10 Unspecified right bundle-branch block; M54.30 Sciatica, unspecified side; R09.02 Hypoxemia; Z79.02 Long term (current) use of antithrombotics/antiplatelets; Z11.52 Encounter for screening for COVID-19
CPT/HCPCS: 71046; 80048; 80053; 80061; 82962; 83036; 83735; 83880; 84443; 84484; 85025; 85027; 87811; 93005; 94640; 96374; 96375; 97110; 97116; 97163; 97167; 97530; 97535; 99285

== ENCOUNTER 2025-08-02 14:24 | Inpatient (IN) | payer OTHER, SELFPAY ==
[2025-08-02] VITALS (17 sets, daily range): BP systolic 95–141; BP diastolic 52–72; PULSE 2–75; BMI 27.2; BMI 26.1
--- NOTE | 2025-08-02 11:27 | ED.GENMED ---
History of Present Illness
<Jono Gonzalez PA-C - Last Filed: 08/02/25 12:57>
General
Chief Complaint: Change in Mental Status
Source: patient
Exam Limitations: none
Time Seen by Provider: 08/02/25 11:10
History of Present Illness
History of Present Illness:
85-year-old male with history of heart failure with preserved ejection fraction, pacemaker, on Eliquis presents from facility with decreasing level of alertness and increasing shortness of breath. He was discharged from this hospital 1 week ago for
acute on chronic heart failure. They adjusted his diuretics. Currently he is on metolazone 3 times a week as well as torsemide 30 mg twice a day. His daughter who provides most of the history states that since 2 days ago he has been declining and
working hard to breathe and not as responsive. They have added Lyrica to his regimen for his left leg pain. He is also on Vicodin. There is also new for stool incontinence. Patient provides limited history but denies any pain.
Past History
<Jono Gonzalez PA-C - Last Filed: 08/02/25 12:57>
Past History
ED Past Medical History: CAD, CHF, COPD, HTN, Hypercholesterolemia, NIDDM, Valvular disease, Hypothyroidism, Psychiatric (Anxiety, depression) and Other (PNA, Cirrhosis of the liver)
ED Past Surgical History: Cardiac (Pacemaker, TAVR, Stent X 1)
Social History
Tobacco: Former smoker
Alcohol: Former
Personal:
Living: with family
Employment: Retired
Family History
Family History: Other (Noncontributory)
Phy Exam
<Jono Gonzalez PA-C - Last Filed: 08/02/25 12:57>
Physical Exam
Physical Exam:
General: Slightly ill-appearing male with increased work of breathing
HEENT normocephalic neck is supple pupils equal round measuring 2 mm bilaterally nonreactive to light
Heart: Regular
Lungs: Coarse throughout
Extremities: No significant edema or cyanosis. 2+ DP pulses bilateral feet
Skin is warm no rash
Neurologic exam: Somnolent responds to verbal stimuli sleeps throughout most of the exam. Follows commands. No drift of the arms finger-nose intact. Left leg pain limiting strength but no obvious deficit
Course
<Jono Gonzalez PA-C - Last Filed: 08/02/25 12:57>
Orders/Labs/Results
Orders:
Orders
08/02/25 Breakfast
NPO
Allow oral meds: Yes
Allow clear liquids: Sips of Clears
NPO with Ice Chips: Yes
08/02/25 11:01
EKG [Electrocardiogram (*1)] Urgent
Reason for Study: Shortness of Breath
EKG- Treatment ONCE
08/02/25 11:04
COVID-19 Antigen Urgent
Source: Nasal Swab
Complete Blood Count/With Diff Urgent
Comprehensive Metabolic Panel Urgent
NT-proBNP Urgent
Urinalysis Reflex To Culture Urgent
Date Specimen was Collected: 08/02/25
Time Specimen was Collected: 11:01
INF RAPID [Influenza A+B Rapid Molecular] Urgent
JULES Source: Nasal Swab
Specimen Description:
08/02/25 11:26
CT Head W/o Iv Contrast Urgent
Comment:
Reason For Exam: change in mental status
CR Chest Portable - 1 View Urgent
Comment:
Reason For Exam: sob
Reason Study Needs to be Portable: Patient Unstable
08/02/25 11:32
Venous Blood Gas Urgent
%Oxygen/Room Air: 2L
08/02/25 12:08
Furosemide [Lasix] 40 mg IV NOW STA
08/02/25 12:13
Bipap [RESP] Urgent
Patient to use own unit?: No
Inspiratory Pressure (cm H2O): 10
Expiratory Pressure (cm H2O): 5
08/02/25 12:36
ABG [Arterial Blood Gas] Urgent
%Oxygen/Room Air: 2L
08/02/25 13:32
Admit/Transfer Patient As Directed
Co-Sign Provider:
Level of Care: Inpatient admission
Assign to:: IMU- Intermediate Care
Physician / Group: Htay
Diagnosis: CHF, Hypoxia
Reason for Hospitalization: IV diuretics, BIPAP
Expected length of stay greater than two midnights?: Yes
ELOS- Estimated Length of Stay in days: 3
I certify the patient meets the requirements for IP care: Yes
PRN Pain Medication Management As Directed
May give lesser potent ordered pain med per pt: Yes
preference::
Protocol:: Medication orders for pain may be administered in a
manner that supports deferring to patient preference
when the pt is:
- Requesting an ordered lesser potent pain medication.
Least to most potent pain medications are defined
as: acetaminophen < NSAID < tramadol < opioids
(morphine, oxycodone, hydromorphone).
- Requesting a lesser dose of the same medication IF
ORDERED.
- Requesting a less intrusive route of administration
if both routes are prescribed by the provider (PO <
IV).
08/02/25 13:37
Code Status As Directed
Resuscitation Status: Do not resuscitate
Reached after discussion with pt or family/Healthcare POA: Yes
DNR Bracelet Application ONCE
08/02/25 16:02
Acetaminophen [Tylenol] 650 mg PO Q6HPRN PRN mild pain/ fever>100.5F
Dextrose 50%-Water [Dextrose 50% Syringe] 12.5 grams IV [id number] PRN
Furosemide [Lasix] 80 mg IV BID AT 0800,1600
Glucagon [GlucaGen] 1 mg IM PRN PRN
Ipratropium/Albuterol Sulfate [Duoneb] 3 ml INH R TID
08/02/25 16:02
CARDIOLOGY CONSULT Routine
Consulting Provider: Armen Goodwin
Was physician already notified: Yes
Activity As Directed
Activity Level: Out of Bed-Early Mobility
Bedside Glucose Monitoring As Directed
Frequency: AC&HS
Additional Instructions:: Change to q6h if pt on TPN, tube feeding or not eating
Bladder Scan As Directed
Follow Bladder Retention/Intermittent Cath Algorithm?: Yes
PRN if no void in __ hours: 6
Frequency: Per Retention Algorithm
If Bladder Scan Result >: 400
then:: Straight cath
I&O [Intake/ Output] As Directed
Frequency: q12h
Straight Cath As Directed
Frequency: Per Retention Algorithm
Additional Instructions: straight cath as needed per acute urinary retention algorithm for 24 hrs
Additional Instructions: for bladder scan greater than 400 mL
Vital Signs As Directed
Frequency: Per unit guidelines
Weight As Directed
Frequency: Daily
Oxygen Therapy [O2 Therapy] [RESP] Routine
Titrate/Wean O2 to maintain O2 sat greater than (%): 92
Special Instructions: Nocturnal oxygen at 2L via nasal cannula
Ot Eval And Treat Routine
Pt Eval And Treat Routine
Activity Level: Out of Bed-Early Mobility
Speech Therapy Eval & Treat Routine
08/02/25 16:09
Pancrelipase [Zenpep Delayed Release Capsule] 1 capsule PO TIDPRN PRN
08/02/25 17:30
Pancrelipase [Zenpep Delayed Release Capsule] 2 capsule PO MEALS
08/02/25 18:00
Azithromycin [Zithromax] 250 mg PO QPM
Cholecalciferol (Vitamin D3) [VITAMIN D3 (cholecalciferol)] 50 mcg PO QPM
Cyanocobalamin [Vitamin B-12] 1,000 mcg PO QPM
Insulin Aspart Corrective Low [Novolog Flexpen-Low Resistance] See Protocol SC Q6
Magnesium Oxide 400 mg PO QPM
Pantoprazole [Protonix] 40 mg PO QPM
08/02/25 20:00
Apixaban [Eliquis] 2.5 mg PO BID
Budesonide [Pulmicort] 0.5 mg INH R BID
Guaifenesin [Mucinex] 600 mg PO BID
Metoprolol Xl [Toprol Xl] 25 mg PO BID
Potassium Chloride [KCl] 20 meq PO BID
08/02/25 22:00
Atorvastatin [Lipitor] 40 mg PO HS
Donepezil HCl [Aricept] 10 mg PO HS
Doxazosin Mesylate [Cardura] 3 mg PO HS
Sertraline HCl [Zoloft] 50 mg PO HS
08/03/25 06:00
Basic Metabolic Panel IN AM
Complete Blood Count/No Diff IN AM
Magnesium IN AM
Levothyroxine [Synthroid] 175 mcg PO DAILY@0600
08/03/25 08:00
Amiodarone [Pacerone] 200 mg PO DAILY
Dapagliflozin [Farxiga] 5 mg PO DAILY
Prednisone [Deltasone] 10 mg PO DAILY
08/04/25 08:00
Colchicine 0.3 mg PO Q48H
Abnormal Lab Results
08/02/25 08/02/25 08/02/25
11:04 11:32 12:36
WBC 16.8 H 10^3/uL
(4.8-10.8)
RBC 3.22 L 10^6/uL
(4.70-6.10)
Hgb 9.4 L g/dL
(13.0-18.0)
Hct 31.0 L %
(39.0-52.0)
MCV 96.3 H fL
(80.0-94.0)
MCHC 30.3 L g/dL
(33.0-37.0)
RDW 15.7 H %
(11.5-14.5)
MPV 11.2 H fL
(7.4-10.4)
Abs Immat Gran (auto) 0.4 H 10^3/uL
(0-0.05)
Absolute Neuts (auto) 13.8 H 10^3/uL
(1.4-6.5)
Absolute Lymphs (auto) 0.7 L 10^3/uL
(1.2-3.4)
Absolute Monos (auto) 1.4 H 10^3/uL
(0.1-0.6)
Immature Gran % 2.1 H %
(0-0.5)
Neutrophils % 82.3 H %
(42.2-75.2)
Lymphocytes % 4.2 L %
(20.5-51.1)
pO2 74 L mmHg
(83-108)
VBG pCO2 54 H mmHg
(35-48)
VBG pO2 72 H mmHg
(30-50)
VBG HCO3 28.5 H mmol/L
(22-27)
Chloride 109 H mmol/L
(98-107)
Carbon Dioxide 31 H mmol/L
(22-30)
BUN 66 H mg/dl
(9-20)
Creatinine 1.6 H mg/dL
(0.7-1.3)
Glucose 113 H mg/dl
(70-99)
Total Protein 5.7 L g/dl
(6.3-8.2)
Albumin 3.2 L g/dl
(3.5-5.0)
08/02/25 11:04
08/02/25 11:04
Vital Signs
Initial and Last Documented VS:
Initial Vital Signs
BP
130/56
08/02/25 10:33
Last Documented Vital Signs
Temp Pulse Resp BP Pulse Ox
97.9 F 70 18 141/55 96
08/02/25 16:34 08/02/25 18:05 08/02/25 18:05 08/02/25 18:06 08/02/25 18:05
<Salo Banks MD - Last Filed: 08/02/25 19:14>
Orders/Labs/Results
Orders:
Orders
08/02/25 Breakfast
NPO
Allow oral meds: Yes
Allow clear liquids: Sips of Clears
NPO with Ice Chips: Yes
08/02/25 11:01
EKG [Electrocardiogram (*1)] Urgent
Reason for Study: Shortness of Breath
EKG- Treatment ONCE
08/02/25 11:04
COVID-19 Antigen Urgent
Source: Nasal Swab
Complete Blood Count/With Diff Urgent
Comprehensive Metabolic Panel Urgent
NT-proBNP Urgent
Urinalysis Reflex To Culture Urgent
Date Specimen was Collected: 08/02/25
Time Specimen was Collected: 11:01
INF RAPID [Influenza A+B Rapid Molecular] Urgent
JULES Source: Nasal Swab
Specimen Description:
08/02/25 11:26
CT Head W/o Iv Contrast Urgent
Comment:
Reason For Exam: change in mental status
CR Chest Portable - 1 View Urgent
Comment:
Reason For Exam: sob
Reason Study Needs to be Portable: Patient Unstable
08/02/25 11:32
Venous Blood Gas Urgent
%Oxygen/Room Air: 2L
08/02/25 12:08
Furosemide [Lasix] 40 mg IV NOW STA
08/02/25 12:13
Bipap [RESP] Urgent
Patient to use own unit?: No
Inspiratory Pressure (cm H2O): 10
Expiratory Pressure (cm H2O): 5
08/02/25 12:36
ABG [Arterial Blood Gas] Urgent
%Oxygen/Room Air: 2L
08/02/25 13:32
Admit/Transfer Patient As Directed
Co-Sign Provider:
Level of Care: Inpatient admission
Assign to:: IMU- Intermediate Care
Physician / Group: Htay
Diagnosis: CHF, Hypoxia
Reason for Hospitalization: IV diuretics, BIPAP
Expected length of stay greater than two midnights?: Yes
ELOS- Estimated Length of Stay in days: 3
I certify the patient meets the requirements for IP care: Yes
PRN Pain Medication Management As Directed
May give lesser potent ordered pain med per pt: Yes
preference::
Protocol:: Medication orders for pain may be administered in a
manner that supports deferring to patient preference
when the pt is:
- Requesting an ordered lesser potent pain medication.
Least to most potent pain medications are defined
as: acetaminophen < NSAID < tramadol < opioids
(morphine, oxycodone, hydromorphone).
- Requesting a lesser dose of the same medication IF
ORDERED.
- Requesting a less intrusive route of administration
if both routes are prescribed by the provider (PO <
IV).
08/02/25 13:37
Code Status As Directed
Resuscitation Status: Do not resuscitate
Reached after discussion with pt or family/Healthcare POA: Yes
DNR Bracelet Application ONCE
08/02/25 16:02
Acetaminophen [Tylenol] 650 mg PO Q6HPRN PRN mild pain/ fever>100.5F
Dextrose 50%-Water [Dextrose 50% Syringe] 12.5 grams IV [id number] PRN
Furosemide [Lasix] 80 mg IV BID AT 0800,1600
Glucagon [GlucaGen] 1 mg IM PRN PRN
Ipratropium/Albuterol Sulfate [Duoneb] 3 ml INH R TID
08/02/25 16:02
CARDIOLOGY CONSULT Routine
Consulting Provider: Armen Goodwin
Was physician already notified: Yes
Activity As Directed
Activity Level: Out of Bed-Early Mobility
Bedside Glucose Monitoring As Directed
Frequency: AC&HS
Additional Instructions:: Change to q6h if pt on TPN, tube feeding or not eating
Bladder Scan As Directed
Follow Bladder Retention/Intermittent Cath Algorithm?: Yes
PRN if no void in __ hours: 6
Frequency: Per Retention Algorithm
If Bladder Scan Result >: 400
then:: Straight cath
I&O [Intake/ Output] As Directed
Frequency: q12h
Straight Cath As Directed
Frequency: Per Retention Algorithm
Additional Instructions: straight cath as needed per acute urinary retention algorithm for 24 hrs
Additional Instructions: for bladder scan greater than 400 mL
Vital Signs As Directed
Frequency: Per unit guidelines
Weight As Directed
Frequency: Daily
Oxygen Therapy [O2 Therapy] [RESP] Routine
Titrate/Wean O2 to maintain O2 sat greater than (%): 92
Special Instructions: Nocturnal oxygen at 2L via nasal cannula
Ot Eval And Treat Routine
Pt Eval And Treat Routine
Activity Level: Out of Bed-Early Mobility
Speech Therapy Eval & Treat Routine
08/02/25 16:09
Pancrelipase [Zenpep Delayed Release Capsule] 1 capsule PO TIDPRN PRN
08/02/25 17:30
Pancrelipase [Zenpep Delayed Release Capsule] 2 capsule PO MEALS
08/02/25 18:00
Azithromycin [Zithromax] 250 mg PO QPM
Cholecalciferol (Vitamin D3) [VITAMIN D3 (cholecalciferol)] 50 mcg PO QPM
Cyanocobalamin [Vitamin B-12] 1,000 mcg PO QPM
Insulin Aspart Corrective Low [Novolog Flexpen-Low Resistance] See Protocol SC Q6
Magnesium Oxide 400 mg PO QPM
Pantoprazole [Protonix] 40 mg PO QPM
08/02/25 20:00
Apixaban [Eliquis] 2.5 mg PO BID
Budesonide [Pulmicort] 0.5 mg INH R BID
Guaifenesin [Mucinex] 600 mg PO BID
Metoprolol Xl [Toprol Xl] 25 mg PO BID
Potassium Chloride [KCl] 20 meq PO BID
08/02/25 22:00
Atorvastatin [Lipitor] 40 mg PO HS
Donepezil HCl [Aricept] 10 mg PO HS
Doxazosin Mesylate [Cardura] 3 mg PO HS
Sertraline HCl [Zoloft] 50 mg PO HS
08/03/25 06:00
Basic Metabolic Panel IN AM
Complete Blood Count/No Diff IN AM
Magnesium IN AM
Levothyroxine [Synthroid] 175 mcg PO DAILY@0600
08/03/25 08:00
Amiodarone [Pacerone] 200 mg PO DAILY
Dapagliflozin [Farxiga] 5 mg PO DAILY
Prednisone [Deltasone] 10 mg PO DAILY
08/04/25 08:00
Colchicine 0.3 mg PO Q48H
Abnormal Lab Results
08/02/25 08/02/25 08/02/25
11:04 11:32 12:36
WBC 16.8 H 10^3/uL
(4.8-10.8)
RBC 3.22 L 10^6/uL
(4.70-6.10)
Hgb 9.4 L g/dL
(13.0-18.0)
Hct 31.0 L %
(39.0-52.0)
MCV 96.3 H fL
(80.0-94.0)
MCHC 30.3 L g/dL
(33.0-37.0)
RDW 15.7 H %
(11.5-14.5)
MPV 11.2 H fL
(7.4-10.4)
Abs Immat Gran (auto) 0.4 H 10^3/uL
(0-0.05)
Absolute Neuts (auto) 13.8 H 10^3/uL
(1.4-6.5)
Absolute Lymphs (auto) 0.7 L 10^3/uL
(1.2-3.4)
Absolute Monos (auto) 1.4 H 10^3/uL
(0.1-0.6)
Immature Gran % 2.1 H %
(0-0.5)
Neutrophils % 82.3 H %
(42.2-75.2)
Lymphocytes % 4.2 L %
(20.5-51.1)
pO2 74 L mmHg
(83-108)
VBG pCO2 54 H mmHg
(35-48)
VBG pO2 72 H mmHg
(30-50)
VBG HCO3 28.5 H mmol/L
(22-27)
Chloride 109 H mmol/L
(98-107)
Carbon Dioxide 31 H mmol/L
(22-30)
BUN 66 H mg/dl
(9-20)
Creatinine 1.6 H mg/dL
(0.7-1.3)
Glucose 113 H mg/dl
(70-99)
Total Protein 5.7 L g/dl
(6.3-8.2)
Albumin 3.2 L g/dl
(3.5-5.0)
08/02/25 11:04
08/02/25 11:04
Vital Signs
Initial and Last Documented VS:
Initial Vital Signs
BP
130/56
08/02/25 10:33
Last Documented Vital Signs
Temp Pulse Resp BP Pulse Ox
97.9 F 70 18 141/55 96
08/02/25 16:34 08/02/25 18:05 08/02/25 18:05 08/02/25 18:06 08/02/25 18:05
<Jono Gonzalez PA-C - Last Filed: 08/02/25 12:57>
MDM/Problems Addressed
Differential Diagnosis Includes:
Change in mental status with increased work of breathing. Differential could include heart failure exacerbation versus polypharmacy versus dehydration or acute kidney injury. He is on Eliquis, will check CT of the head to evaluate for any bleeding
although the patient denies any pain. Look for infectious source with COVID and flu testing as well as portable chest x-ray. Labs pending. Currently is on 2 L of oxygen
Per documentation, he is increased 4 kg since July 22.
Per chart, most recent echocardiogram was in March of this year which showed an ejection fraction of 60 to 65%
<Jono Gonzalez PA-C - Last Filed: 08/02/25 12:57>
*Pulse Oximetry
SaO2: 99
Nasal Cannula flow liters per minute: 2
Oxygen Mode of Delivery: Room air
Patient hypoxic: yes
*Critical Care Note
Total Time (30-74mins, 75-104mins- exclusive of procedures): Not Applicable
<Jono Gonzalez PA-C - Last Filed: 08/02/25 12:57>
Update Note
Update Note:
Chest x-ray shows increased pulmonary edema. Head CT is negative. Patient still arousable to verbal stimuli but is somnolent in the room. Discussed with emergency room attending. Consulted respiratory therapy. Patient placed on BiPAP. BNP
elevated. Renal function stable at 1.6 of creatinine. Will admit to hospital for CHF flare with change in mental status poss from polypharmacy.
ED Attending Note
<Jono Gonzalez PA-C - Last Filed: 08/02/25 12:57>
-
Portions of this chart may have been created with voice recognition software.� Occasional wrong word or��sound alike� substitutions may have occurred due to the inherent limitations of voice recognition software.
<Salo Banks MD - Last Filed: 08/02/25 19:14>
ED Attending Note
Patient seen and examined by attending physician: Yes
ED Attending Note:
Patient with history of congestive heart failure on torsemide and paroxysmal atrial fibrillation on Eliquis, presents to ED from halfway secondary to mental status change along with increased work of breathing. Upon arrival, patient is
somnolent but arousable, but has no complaints. Denies headache. Denies dizziness. Denies chest pain. Denies shortness of breath. Denies nausea or vomiting. Denies recent change in medications or diet.
Physical Exam
General: mild distress, not acutely ill. afebrile
Head: nc/at. eomi
Neck: supple. no meningeal signs.
Heart: s1/s2 regular rate and rhythm
Lungs: no acute respiratory distress. diminished breath sounds bilaterally
Abdomen: normal bowel sounds. not tender.
Neuro: somnolent but arousable. no focal neurological deficits
Skin: no rash
Extremities: LE b/l, nonpitting edema. no calf tenderness.
CT head: No acute findings.
Patient remains somnolent but easily arousable. Patient's presenting symptoms likely secondary to medication effect, less likely infectious/CVA. Mild fluid overload may explain increased work of breathing, as evidenced by weight gain, increased
proBNP level, along with chest x-ray findings. As such, patient will be given IV Lasix. Patient will be admitted for further evaluation and treatment.
Discharge Plan
Departure
Patient Disposition: Admit
Date of Disposition: 08/02/25
Time of Disposition: 12:56
Presentation/result/management discussed w/ accepting MD/DO: Hospitalist
Discharge Problem:
Acute CHF
Interventions
Interventions:
*Risk Screen - Suicide Last Done: 08/02/25 10:42
*General Assessment Last Done: 08/02/25 10:42
*Neglect/Abuse Screening Last Done: 08/02/25 10:42
*ED COVID-19 Vaccine History Last Done: 08/02/25 10:42
*Nursing Disposition Last Done: 08/02/25 16:36
ED- Pulmonary Assessment Last Done: 08/02/25 10:51
ED- Neurological Assessment Last Done: 08/02/25 10:51
ED- Cardiac Assessment Last Done: 08/02/25 10:51
ED Swallowing Screen Last Done: 08/02/25 11:34
Discharge Date and Time
Discharge Date/Time: 08/02/25 16:15
[2025-08-02 11:28] LABS: Hematocrit 31.0 % (39.0-52.0); Hemoglobin 9.4 g/dL (13.0-18.0); Mean Corp Hgb Conc. 30.3 g/dL (33.0-37.0); Mean Corpuscular Volume 96.3 fL (80.0-94.0); Nucleated Red Blood Cells % 0 % (-); Platelet Count 168 10^3/uL (130-400); Red Cell Dist. Width 15.7 % (11.5-14.5); Urine Character Clear (Clear)
--- NOTE | 2025-08-02 11:35 | EDRN ---
Received patient from [facility] for increased lethargy and patient was 'spitting out his food at breakfast.' Per EMS patient was placed on O2 Friday at [facility] and arrived on O2 3LNC. Room air pulse ox on arrival 91-94%. Placed on O2 2LNC.
Patient denies SOB and chest pain. Patient arousable to touch and sound. Patient stated that he feels more sleepy and has had a cough for 2 days and can't cough it up. Patient arrived with gurgling respirations. Patient's and daughter at
bedside. Daughter stated that the patient has increased gurgling sound and is more sleepy. Daughter stated that the patient had an increase in his dose of Lyrica and was given hydrocodone for leg pain.
[2025-08-02 11:41] LABS: Venous Blood Gas B.E. 2.0 mmol/L (-4 to +4); Venous Blood Gas O2 Sat % 93.7 %
[2025-08-02 11:45] LABS: COVID-19 Antigen Negative (Negative)
[2025-08-02 11:48] LABS: ALT (SGPT) 40 U/L (0-50); AST (SGOT) 29 U/L (17-59); Albumin 3.2 g/dl (3.5-5.0); Alkaline Phosphatase 119 U/L (38-126); Blood Urea Nitrogen 66 mg/dl (9-20); Calcium 8.7 mg/dl (8.4-10.2); Carbon Dioxide 31 mmol/L (22-30); Chloride 109 mmol/L (98-107); Estimated Creatinine Clearance 33 ml/min; Glucose 113 mg/dl (70-99); Potassium 4.4 mmol/L (3.5-5.1); Sodium 143 mmol/L (135-145); Total Protein 5.7 g/dl (6.3-8.2); eGFR 41.96
[2025-08-02] MEDS: LASIX 40 MG IV (12:20)
[2025-08-02 12:50] LABS: B.E. 2.3 mmol/L; HCO3 27.8 mmol/L (21-28); O2 Saturation % 94.0 % (94-98); PCO2 46 mmHg (35-48); PO2 74 mmHg (83-108)
--- NOTE | 2025-08-02 13:04 | HPS.HSE ---
Family Physician
-
Family Physician: Jaun Gutierrez MD
Chief Complaint
-
Change in mental status
History of Present Illness
Patient is an 85 y/o male past medical history of ASCVD, A-Fib on Eliquis, Heart Block s/p PPM, ILD/COPD, Chronic Hypoxia on Nocturnal O2, CKD and recent admission from Jul 15- with Acute on Chronic Heart Failure who presents with change in mental
status. Additional history is obtained from patient's daughter at the bedside. She notes late last week patient's dose of Lyrica was increased from 25mg BID to 50mg BID. Yesterday afternoon while she was visiting she noted the patient was very
sleepy. She FaceTimed with him last evening and noted he appeared slightly short of breath. This morning patient was again more lethargic than usual and was spitting his food out prompt the facility to send him to the emergency department for
evaluation.
Medical History
Past Medical History
Past Medical History: Reports Other
Additional Past Medical History:
ASCVD
Chronic HFpEF
s/p TAVR
Heart Block s/p PPM
Atrial Fibrillation
Hypothyroidism
ILD
Chronic Hypoxemia (Nocturnal O2 at Home)
COPD
Hypertension
CKD III
Anemia of Chronic Disease
DM-II
Pancreatic Insufficiency
Dementia
Past Surgical History: Reports Other
Additional Past Surgical History:
PTCA with Stent
TAVR
PPM Placement
Right FELIPA
Cataracts
Social History
Tobacco: Former Smoker (Quit smoking about 20 years ago. > 40 pack years total use.)
Alcohol: Former (Quit drinking entirely about 15 years ago.)
Drug: None
Family History
Family History: Not pertinent
Allergies / Home Medications
Allergies reflects when Allergies were last updated in [employer].
Home Medications with original date entered in [employer]
Allergy/Medication List:
Allergies
Allergy/AdvReac Type Severity Reaction Status Date / Time
No Known Allergies Allergy Verified 04/05/25 00:35
Home Medications
cyanocobalamin (vitamin B-12) 1,000 mcg tablet 1,000 mcg PO QPM Supplement 01/13/20
levothyroxine 175 mcg tablet 175 mcg PO DAILY Thyroid 01/13/20
sertraline 50 mg tablet 50 mg PO HS Mental Health/Anxiety 01/13/20
pantoprazole 40 mg tablet,delayed release 40 mg PO QPM Gastrointestinal issue 05/15/20
budesonide 0.5 mg/2 mL suspension for nebulization 0.5 mg (2 mL) inhalation R BID 30 days ##2 05/07/21
magnesium oxide 400 mg PO QPM Supplement 03/15/22
azithromycin 250 mg tablet 250 mg PO QPM Infection 05/25/24
donepezil 10 mg tablet 10 mg PO HS Mental Health/Anxiety 05/25/24
ipratropium 0.5 mg-albuterol 3 mg (2.5 mg base)/3 mL nebulization soln 3 ml inhalation R TID Lung/Breathing Issues 05/25/24
prednisone 10 mg tablet 10 mg PO DAILY Anti-Inflammatory 05/25/24
vitamins A,C,S-ojtu-ocqbco 2,148 mcg-113 mg-45 mg-17.4 mg tablet (PreserVision AREDS) 1 tab PO BID Supplement 05/25/24
cholecalciferol (vitamin D3) 25 mcg (1,000 unit) tablet 50 mcg PO QPM Supplement 06/17/24
apixaban 2.5 mg tablet (Eliquis) 2.5 mg PO BID 30 days #60 tabs 06/22/24
doxazosin 1 mg tablet 3 mg (3 x 1 mg) PO HS 30 days #90 tabs 06/22/24
amiodarone 200 mg tablet 200 mg PO DAILY AFIB 04/05/25
atorvastatin 40 mg tablet (Lipitor) 40 mg PO HS High Cholesterol 04/05/25
metoprolol succinate 25 mg tablet,extended release 24 hr 25 mg PO BID Blood Pressure 04/05/25
fagyhc-ijqnrnpp-zsyafmx 24,000-76,000-120,000 unit capsule,delayed rel (Creon) 2 cap PO MEALS 07/15/25
acetaminophen 325 mg tablet 650 mg (2 x 325 mg) PO Q6HPRN PRN mild pain/ fever>100.5F #0 tabs 07/22/25
colchicine 0.6 mg tablet 0.6 mg PO DAILY #0 tabs 07/22/25
hydrocodone 5 mg-acetaminophen 325 mg tablet 1 tab PO TIDPRN PRN severe pain #8 tabs 07/22/25
potassium chloride 20 mEq tablet,extended release(part/cryst) 20 meq PO BID #0 tabs 07/22/25
bisacodyl 10 mg rectal suppository (Dulcolax (bisacodyl)) 10 mg AK DAILY PRN no bm x 8h post MOM 08/02/25
dapagliflozin propanediol 5 mg tablet 5 mg PO DAILY 08/02/25
guaifenesin 600 mg tablet, extended release 12 hr 600 mg PO BID 08/02/25
insulin aspart U-100 100 unit/mL (3 mL) subcutaneous pen (Novolog FlexPen U-100 Insulin aspart) 0 - 6 sliding scale dose SC AC 08/02/25
jvvdng-senjehme-sfcmnbu 24,000-76,000-120,000 unit capsule,delayed rel (Creon) 1 cap PO TIDPRN PRN SNACKS 08/02/25
magnesium hydroxide 400 mg/5 mL oral suspension (Milk of Magnesia) 30 ml PO HS PRN no bm x 2 days 08/02/25
metolazone 5 mg tablet 5 mg PO MOWEFR@0730 08/02/25
pregabalin 50 mg capsule (Lyrica) 50 mg PO BID 08/02/25
sodium phosphates 19 gram-7 gram/118 mL enema (Fleet Enema) 118 ml AK DAILYPRN PRN no BM x 8 hours post suppository 08/02/25
torsemide 10 mg tablet 30 mg PO BID@0800,1600 08/02/25
zinc oxide 40 % topical ointment 1 applic topical BID b/l groin and upper thigh 08/02/25
Review of Systems
-
Unable to obtain full review of systems at this time due to: Acuity
Physical Exam
Vital Signs
Vital Signs
Temp Pulse Resp BP Pulse Ox
98.5 F 70 20 129/56 98
08/02/25 10:36 08/02/25 12:20 08/02/25 12:20 08/02/25 12:20 08/02/25 12:20
Physical Exam
General: Well Developed and Well Nourished
HEENT: Anicteric, Moist mucous membranes and Oxygen (BIPAP)
Respiratory: Non Labored Respirations and Other (Coarse breath sounds anteriorly)
Cardiac: S1/S2 and Regular Rhythm; No Tachycardia
GI: Soft and Non Tender
Rectal: Deferred by Provider
Musculoskeletal: No Clubbing, No Cyanosis, Edema, Left Upper Extremity and Other (Trace / +1 edema bilateral lower extremities which family reports appears quite good compared to prior episodes of heart failure)
Skin: Warm and Dry
Neuro: Other (Lethargic but easily arousable and able to follow a few simple commands such as wiggling toes and squeezing hand)
Psych: Calm
Laboratory Results
-
08/02/25 11:04
08/02/25 11:04
Laboratory Results
pH 7.39 (7.35-7.45) 08/02/25 12:36
pCO2 46 mmHg (35-48) 08/02/25 12:36
pO2 74 mmHg (83-108) L 08/02/25 12:36
HCO3 27.8 mmol/L (21-28) 08/02/25 12:36
Total Bilirubin 0.5 mg/dl (0.2-1.3) 08/02/25 11:04
AST 29 U/L (17-59) 08/02/25 11:04
ALT 40 U/L (0-50) 08/02/25 11:04
Alkaline Phosphatase 119 U/L (38-126) 08/02/25 11:04
Data Reviewed
-
Diagnostic Radiology: Report Reviewed by me
CT Scan: Report Reviewed by me
Lab Data: Labs Reviewed by me
Old Records: Reviewed
Impression/Plan
-
Acute on Chronic Hypoxic/Hypercapnic Respiratory Failure
-Suspect mostly related to sedation due to increased Lyrica dosing
-Hold Vicodin and Lyrica
-Continue BiPAP until mentation improves then wean
-Continue oxygen via nasal cannula 2L at night
Chronic HFpEF, suspect small component of acute exacerbation
-Consult Cardiology
-Start Lasix 80mg IV BID
-Continue dapagliflozin
-Monitor Daily Weights
LLE Neuropathy Pain
-Hold Lyrica for now
-If needs to be resumed would plan to resume at 25mg BID as it appears patient tolerated that dose previously
ASCVD
-Continue Lipitor
Paroxysmal Atrial Fibrillation
-Continue amiodarone
-Continue Eliquis
ILD / COPD
-Continue azithromycin
-Continue Budesonide and DuoNeb
Diabetes Mellitus, Type II
-Continue dapagliflozin
-Monitor sugars and continue coverage insulin
Hypertension - Continue doxazosin
CKD III -Creatinine at baseline
Anemia of Chronic Disease -Hgb at baseline
Hypothyroidism - Continue levothyroxine
Pancreatic Insufficiency - Continue Creon
Gout - Continue Colchicine
Dementia - Continue donepezil
Hx s/p TAVR
Hx Heart Block s/p PPM
DVT proph: Eliquis
Code Status: DNR
--- NOTE | 2025-08-02 13:12 | W.PN.UPDATE ---
Update Note
Progress Note Update
I could not get any information from the patient is letahrgic
Information gathered by chart review and speaking with the ER staff and daughter
This note serves as an addendum to the H&P by coke inspector VLADIMIR�
rory Nieves
HPI
85M from [facility], HC chr HFpEF, mod - severe MS, Prx AF, hr eliquis PPM, DM, HTN seen at ER:
- daughter who provides most of the history
- lethargic and and increasing shortness of breath.
- discharged from this hospital 1 week ago for acute on chronic heart failure. They adjusted his diuretics.
- Currently he is on metolazone 3 times a week as well as torsemide 30 mg twice a day.
- 2 days ago he has been declining and working hard to breathe and not as responsive.
- added Lyrica to his regimen for his left leg pain plus also on Vicodin. + new for stool incontinence.
Relevant VS
Temp Pulse Resp BP Pulse Ox
98.5 F 70 20 129/56 98
08/02/25 10:36 08/02/25 12:20 08/02/25 12:20 08/02/25 12:20 08/02/25 12:20
Wt
07/22/25
08/02/25
10:42
Actual Weight 77.156 kg 81 kg
PE
Gen - lethargic
HEENT-NC, AT, anicteric, clear oral mm
Neck-supple
CV-reg, no M, +S1/S2
Lungs-clear B/L
Abd-soft, NT, ND
Ext-bilateral lower extremity edema, left upper extremity edema, Yuri wraps bilateral lower extremities
MS- left great toe improved erythema and range of motion, less tender at metatarsal head
Skin-warm and dry, multiple bruises on extremities
Neuro-grossly non-focal
Psych-calm, cooperative
Relevant Data
07/19/25 07/20/2507/22/25
06:51 11:44 06:51
WBC 14.5 H
Hgb 8.9 L
Creatinine 1.5 H
eGFR 45.34
Qua-K-Scqeytbzits Pept 2540
08/02/25
11:04
WBC 16.8 H
Hgb 9.4 L
Creatinine 1.6 H
eGFR 41.96
Oyk-J-Mncphiwtuwu Pept 3690
ABG
08/02/25 08/02/25
11:32 12:36
pH 7.39
pCO2 46
pO2 74 L
VBG pH 7.33
VBG pCO2 54 H
VBG pO2 72 H
VBG HCO3 28.5 H
ECHO 04/05/2025: EF 60 to 65%, no regional wall motion abnormalities noted, mild concentric LVH, moderate to severe MS with peak/mean gradients 26/13 mmHg, Fleming ROSARIO #[id number] TAVR with peak/mean gradients 37/22 mmHg, trace TR, PAP 50 to 55 mmHg
Last hospitalist admission:DATE OF ADMISSION: 07/15/2025 - DATE OF DISCHARGE: 07/22/2025
DISCHARGE DIAGNOSES:
1. Acute on chronic heart failure with preserved ejection fraction.
2. Acute kidney injury on chronic kidney disease 3A.
3. 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
4. Hyperkalemia.
5. Multiple skin tears.
ASSESSMENT & PLAN
Pending Rx reconciliation
Lethargy - multifactorial hypoactive TME predominantly due to SYRUPER suppressions of Lyrica + Vicodin led to acute on chr hypoxic hypercapnic RF with Resp acidosis more than Chr HFpEF flare
- Hold Lyrica and Vicodin for now
- Agree with BiPAP - wean as able
- Tx acute HF as below
Chr HFpEF flare - s/p IV Lasix 40 at ER
Interval volume expansion - gained 4kg since DC'd
- known EF was 60 to 65% by echo 04/05/2025
- IV Lasix 80 BID
- Hold metolazone 5 mg daily.
- c/w [employer] Toprol XL 25 mg BID
- Monitor weights, I's and O's.
- [facility] card consul
Acute on chr hypoxic hypercapnic RF suspect due to SYRUPER suppressant Meds
Primary Resp acidosis
NAG MA
- Improved ABG with BiPAP - can wean as able
Known moderate to severe MS with peak/mean 26/13 mmHg.
- currently undergoing medical therapy
- to consider [facility] as OP per last admission Card consult
Prior HX TAVR with peak/mean 37/22 mmHg by echo 3 months ago
HX paroxysmal A-fib and in sinus with AV pacing on telemetry
[employer] permanent pacemaker implant
- [employer] amiodarone 200 mg daily with stable QTc
- [employer] Eliquis 2.5 mg BID
- [employer] Toprol XL 25 mg BID
Hx CAD
- s/p LAD PCI 06/21/2024
- no longer on Plavix
- currently on Eliquis
- [employer] Toprol XL 25 mg BID
Hypothyroidism
- c/w LT4 - last TSH 2.87.
DM2 with hyperglycemia
- last A1c 5.9%
- No longer on glimepiride given his age, frailty, presentation with hypoglycemia.
- on Jardiance.
- ISS low
Hyperlipidemia
- [employer] atorvastatin.
Essential hypertension
-stable.
Chronic exocrine pancreatic insufficiency
-on chronic pancreatic enzyme replacement.
DVT Px:
DNR
IMU
--- NOTE | 2025-08-02 14:01 | CON.CAR ---
Addendum entered and electronically signed by Armen Goodwin MD 08/02/25 16:09:
I saw and examined the patient.
The CIGARETTE PACKING MACHINE OPERATOR or PA's note was reviewed and I agree with the note.
Comment: General: Sleeping but easily arousable
Neck: Supple, no JVD, HJR, carotids +2 B/L, no bruits bilaterally.
Heart: Non displaced PMI, RRR, no murmurs, No S3, S4, no rubs.
Lungs: Scattered rhonchi
Extremities: No clubbing, cyanosis or edema bilaterally.
Neuro: Sleeping but easily arousable
Head has a history of chronic diastolic CHF, PAF, CAD, aortic stenosis status post TAVR, status post pacer, renal insufficiency, hypertension, diabetes, COPD. He was admitted to [facility] in July 2025 with CHF at the presenting with edema
anasarca. His discharge weight was 170 pounds and outpatient torsemide was increased from 20 mg twice daily to 30 mg twice daily as well as metolazone 5 mg Friday and Friday with creatinine of 1.5 on discharge. Lyrica was added for lower
extremity neuropathy was discharged to [facility].
He presents with lethargy and increasing shortness of breath. Of note Lyrica had been increased recently as well. Vicodin for leg pain. His weight at [facility] was 173.74 pounds per daughter. He is admitted now with increasing lethargy and
acute diastolic CHF. Will treat with IV Lasix. Will follow renal insufficiency with creatinine of 1.6 at present. Discussed with and daughter at bedside.
Original Note:
Consultation
Consultation Request
Date/Time Consultation Requested: 08/02/2025, 1345
Date/Time Consultation Performed: 08/02/2025, 1400
Requesting Provider: Vanessa Bess PA-C
Performing Provider: EMILY Thomas for Dr Goodwin
Reason for Consultation: heart failure, hypoxia
Medical History
-
Chief Complaint: weight gain, edema
History of Present Illness:
85-year-old man past medical history of heart failure preserved ejection fraction, paroxysmal atrial fibrillation, coronary artery disease, aortic stenosis status post TAVR, dual-chamber pacemaker, chronic kidney disease, hypertension, type 2
diabetes, COPD, recent admission to [facility] 07/15/2025 - 07/22/2025 for acute on chronic heart failure with preserved EF after presenting with edema and anasarca. He was treated with IV diuretics, diuresed 12 pounds to discharge weight of 170 pounds.
Outpatient torsemide was increased on discharge from 20 mg twice daily to 30 mg twice daily as well as metolazone 5 mg on Friday, Friday, Friday.
Creatinine on discharge 1.5. Lyrica was added for lower extremity neuropathy. He was discharged to rehab unit at [facility].
He presents today with lethargy and increased shortness of breath. His daughter reports he had been doing well with rehab but yesterday appeared more fatigued. Lyrica dose had been increased to 50mg on 07/28 and pt continued to use PRN Vicodin for
pain relief during PT. Last night he appeared mildly winded while on facetime call. This morning pt more lethargic and short of breath and sent to ED by facility.
Weights at [facility] 173-174lbs per daughter. Lower extremity edema improved since last hospitalization.
Pt was not yet back to baseline functional status (was living independently, did not require assistive device for ambulation prior to 07/15/25 admission).
He has been having left lower extremity pain for months and is scheduled for outpt MRI 08/08 which he has waited for 3 months. Pain had been managed with lyrica and prn Vicodin. Getting MRI done is priority to pt and family.
Cardiology is consulted for evaluation of acute on chronic heart failure preserved EF.
ED workup:
proBNP 3690 (BNP 6210 on 07/15/25 admit, repeat 07/20 2540)
BUN/creatinine 66/1.6, NA 143, K4.4, hemoglobin 9.4, WBC 16.8, platelets 168
Twelve-lead EKG: AV paced, QTc 496 msec
Chest x-ray: Diffusely increased interstitial markings highly suggestive of interstitial pulmonary edema, appears increased compared to 07/15/[address]: No acute intercranial abnormalities
Started on BiPap. Rec'd dose IV Lasix. Lyrica and Vicodin on hold
PMHx/PSHx:
Chronic HFpEF
Paroxysmal atrial fibrillation
Chronic Eliquis anticoagulation
CAD
s/p BLADIMIR to mid LAD 01/13/2020
s/p BLADIMIR to prox LAD 06/21/2024s/p TAVR 26 mm Fleming Valve 05/11/2020
MS/MR, mild to mod by echo 2023
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
COPD, on nocturnal home O2
Carotid stenosis
Hypertension
Hyperlipidemia
LLE pain, thought to be neuropathic
Hypothyroidism
Type 2 DM
Renal insufficiency
Frequent PVCs, NSVT
DNR code status
Past Medical History
Past Medical History: Other (As above)
Past Surgical History: Other (TAVR, pacemaker, PTCA/stenting, right total hip arthroplasty, cataract surgery)
Social History
Tobacco: Former Smoker
Alcohol: Former
Personal:
Living: With Family
Family History
Family History: Reviewed & Not Pertinent
Allergies / Home Medications
Allergy/AdvReac Type Severity Reaction Status Date / Time
No Known Allergies Allergy Verified 04/05/25 00:35
�Medication �Instructions �Recorded �Confirmed �Type
cyanocobalamin (vitamin B-12) 1,000 mcg PO QPM Supplement 01/13/20 08/02/25 History
1,000 mcg tablet
levothyroxine 175 mcg tablet 175 mcg PO DAILY Thyroid 01/13/20 08/02/25 History
sertraline 50 mg tablet 50 mg PO HS Mental Health/Anxiety 01/13/20 08/02/25 History
pantoprazole 40 mg tablet,delayed 40 mg PO QPM Gastrointestinal issue 05/15/20 08/02/25 History
release
budesonide 0.5 mg/2 mL suspension 0.5 mg (2 mL) inhalation R BID 30 05/07/21 08/02/25 Rx
for nebulization days ##2
magnesium oxide 400 mg PO QPM Supplement 03/15/22 08/02/25 History
azithromycin 250 mg tablet 250 mg PO QPM Infection 05/25/24 08/02/25 History
donepezil 10 mg tablet 10 mg PO HS Mental Health/Anxiety 05/25/24 08/02/25 History
ipratropium 0.5 mg-albuterol 3 mg 3 ml inhalation R TID 05/25/24 08/02/25 History
(2.5 mg base)/3 mL nebulization Lung/Breathing Issues
soln
prednisone 10 mg tablet 10 mg PO DAILY Anti-Inflammatory 05/25/24 08/02/25 History
vitamins A,C,Q-cjmc-glvnop 2,148 1 tab PO BID Supplement 05/25/24 08/02/25 History
mcg-113 mg-45 mg-17.4 mg tablet
(PreserVision AREDS)
cholecalciferol (vitamin D3) 25 50 mcg PO QPM Supplement 06/17/24 08/02/25 History
mcg (1,000 unit) tablet
apixaban 2.5 mg tablet (Eliquis) 2.5 mg PO BID 30 days #60 tabs 06/22/24 08/02/25 Rx
doxazosin 1 mg tablet 3 mg (3 x 1 mg) PO HS 30 days #90 06/22/24 08/02/25 Rx
tabs
amiodarone 200 mg tablet 200 mg PO DAILY AFIB 04/05/25 08/02/25 History
atorvastatin 40 mg tablet (Lipitor) 40 mg PO HS High Cholesterol 04/05/25 08/02/25 History
metoprolol succinate 25 mg 25 mg PO BID Blood Pressure 04/05/25 08/02/25 History
tablet,extended release 24 hr
yzgcnq-bkuweqdd-rwxkduw 2 cap PO MEALS 07/15/25 08/02/25 History
24,000-76,000-120,000 unit
capsule,delayed rel (Creon)
acetaminophen 325 mg tablet 650 mg (2 x 325 mg) PO Q6HPRN PRN 07/22/25 08/02/25 Rx
mild pain/ fever>100.5F #0 tabs
colchicine 0.6 mg tablet 0.6 mg PO DAILY #0 tabs 07/22/25 08/02/25 Rx
hydrocodone 5 mg-acetaminophen 325 1 tab PO TIDPRN PRN severe pain #8 07/22/25 08/02/25 Rx
mg tablet tabs
potassium chloride 20 mEq 20 meq PO BID #0 tabs 07/22/25 08/02/25 Rx
tablet,extended release(part/cryst)
bisacodyl 10 mg rectal suppository 10 mg CA DAILY PRN no bm x 8h post 08/02/25 08/02/25 History
(Dulcolax (bisacodyl)) MOM
dapagliflozin propanediol 5 mg 5 mg PO DAILY 08/02/25 08/02/25 History
tablet
guaifenesin 600 mg tablet, 600 mg PO BID 08/02/25 08/02/25 History
extended release 12 hr
insulin aspart U-100 100 unit/mL 0 - 6 sliding scale dose SC AC 08/02/25 08/02/25 History
(3 mL) subcutaneous pen (Novolog
FlexPen U-100 Insulin aspart)
kzmfys-btvohdzc-gxztxbo 1 cap PO TIDPRN PRN SNACKS 08/02/25 08/02/25 History
24,000-76,000-120,000 unit
capsule,delayed rel (Creon)
magnesium hydroxide 400 mg/5 mL 30 ml PO HS PRN no bm x 2 days 08/02/25 08/02/25 History
oral suspension (Milk of Magnesia)
metolazone 5 mg tablet 5 mg PO MOWEFR@0730 08/02/25 08/02/25 History
pregabalin 50 mg capsule (Lyrica) 50 mg PO BID 08/02/25 08/02/25 History
sodium phosphates 19 gram-7 118 ml CA DAILYPRN PRN no BM x 8 08/02/25 08/02/25 History
gram/118 mL enema (Fleet Enema) hours post suppository
torsemide 10 mg tablet 30 mg PO BID@0800,1600 08/02/25 08/02/25 History
zinc oxide 40 % topical ointment 1 applic topical BID b/l groin and 08/02/25 08/02/25 History
upper thigh
Review of Systems
-
Unable to obtain full review of systems at this time due to: Other (pt lethargic)
History Source: Family
All other systems: Negative unless noted
Physical Exam
Vital Signs
Temp Pulse Resp BP Pulse Ox
98.5 F 70 20 129/56 98
08/02/25 10:36 08/02/25 12:20 08/02/25 12:20 08/02/25 12:20 08/02/25 12:20
GEN: sleeping, arousable, on bipap
HEENT: supple, anicteric, mmm
LUNGS: rhonchorous BS
CV: Reg, S1/S2, 2/6 systolic murmur LSB
ABD: soft, BS+, NT/ND
EXT: trace -1+ B/L LE edema to thighs trace LUE edema, wearing compression sleeve
NEURO: Gross non-focal
SKIN: +ecchymosis RUE
Lab Results
08/02/25 11:04
08/02/25 11:04
Vdi-V-Llkwbbtcevj Pept 3690 pg/ml 08/02/25 11:04
Impression / Plan
-
.
PCP: Dr. Dexter Meng
Primary Shake Table Operator: Dr. Deana Palomino
Impression:
Acute on chronic HFpEF
lethargy
Recent admission for acute HF, presented with edema/anasarca 07/15/25
FAHEEM on CKD 3a
recent gout flare
Paroxysmal atrial fibrillation
Chronic Eliquis anticoagulation
CAD
s/p BLADIMIR to mid LAD 01/13/2020
s/p BLADIMIR to prox LAD 06/21/2024
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
MS/MR, mild to mod by echo 2023
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
COPD
Carotid stenosis
Neuropathic pain left lower extremity
gout
Hypertension
Hyperlipidemia
Hypothyroidism
Type 2 DM
Renal insufficiency
Frequent PVCs, NSVT
DNR code status
Echo 06/18/2024: EF 50 to 55%, stage II diastolic dysfunction, mild to moderate MS with peak/mean gradient 16/8 mmHg, moderate MR, severely dilated left atrium, status post number 26 mm TAVR with peak/mean gradients of 25/17 mmHg, trace AR, trace TR,
PAP 30 mmHg
ECHO 04/05/2025: EF 60 to 65%, no regional wall motion abnormalities noted, mild concentric LVH, moderate to severe MS with peak/mean gradients 26/13 mmHg, Fleming ROSARIO #26 TAVR with peak/mean gradients 37/22 mmHg, trace TR, PAP 50 to 55 mmHg
Plan:
85-year-old male presents with lethargy and increased shortness of breath. Recent admission for acute on chronic heart failure preserved EF treated with IV diuretics and uptitration of outpatient diuretics. Also with lower extremity neuropathic
pain requiring recent up titration of Lyrica. Comorbidities include paroxysmal atrial fibrillation, coronary artery disease, aortic stenosis status post TAVR, dual-chamber pacemaker, chronic kidney disease, hypertension, type 2 diabetes, COPD.
Acute HFpEF
-proBNP 3690, chest x-ray with pulmonary edema, and wt up 8 lbs from discharge 07/22/2025.
-agree with IV diuresis
-hold Metolazone
-Creatinine in stable range at 1.6-follow renal function and electrolytes
- Avoiding KARMA/ARB, MRA in setting of chronic kidney disease
- Continue outpatient Toprol 25 mg bid
-cont outpatient Farxiga
- Daily weights, I&O
-EF was 60 to 65% by echo 04/05/2025, with mod-sev MS peak/mean 26/13 mmHg
Pt is currently undergoing medical therapy, his candidacy for eval for TMVR is unclear.
-wean Bipap. On 2L O2 noctural in home setting
Paroxysmal A-fib
- in sinus with AV pacing on telemetry
-Cont outpt amiodarone 200 mg daily with stable QTc 496 msec
-Cont Eliquis 2.5 mg BID
-cont outpt Toprol 25 mg bid
-Patient previously indicated he would be interested in Watchman, not clear if he is a candidate for this given underlying dementia and overall conditioning. Recently had multiple skin tears/bruising and has had multiple falls thought to be related
to his LLE neuropathic pain for which he is scheduled for outpt MRI 08/08/25 (has been waiting for 3 months for MRI).
-Device check in the office on 07/11/2025 showed normal device and lead function without significant arrhythmia and good battery life
Hx CAD:
-Patient had LAD PCI 06/21/2024 and Plavix stopped 07/11/2025. Remains on ASA 81 mg and atorvastatin
Hx
-Patient has a previous TAVR with peak/mean 37/22 mmHg by echo 03/2025
-SBE prophylaxis required
LE neuropathic pain
-Has been followed by pain management prescribed PRN Vicodin, Lyrica recently added. He has been waiting for MRI to be done for the past 3 months, and it is scheduled for 08/08. It is daughter's understanding that MRI cannot be done in an inpatient
setting. She had already planned to go have him discharged from [facility] rehab so that she could take him for MRI.
-lyrica and vicodin on hold given lethargy
Discussed with and daughter at bedside
Data Reviewed
-
EKG: Tracing Personally Visualized and interpreted
Labs: Labs Reviewed by me
[2025-08-02] MEDS: DUONEB INH (16:17)
--- NOTE | 2025-08-02 16:33 | EDRN ---
Patient taken to room 3345 on stretcher on monitor on BiPAP by ED RN and Respiratory therapy
--- NOTE | 2025-08-02 17:05 | PTCARENOTE ---
Received patient on admission from ED via stretcher, accompanied by 2 RNs and RT, with Bipap in use at 10/5 and 2L. Transferred to bed x4 staff assist. Patient's daughter and at bedside and assisted with answering admission questions. Patient
awake at times, but still lethargic; answered some questions but forgetful. Family states he has had some difficulty with swallowing recently. Patient ordered po meds but remains on bipap. Discussed with RT who stated patient to remain until awake
and alert. TT sent to Dr Palencia regarding meds, he then forwarded text to Vanessa Bess NP. This nurse informed her that patient not fully awake and alert; also informed her that family states patient with recent difficulty swallowing. She
responded that she reviewed meds for this evening and there is not anything critical that needs to be changed to IV. If patient cannot take po then to document not given.
Patient with scattered purple and red ecchymosis throughout, scattered scabs b/l arms. LUE with history lymphedema; patient's own compression spandage on the arm. Limb alert bracelet reapplied to LUE. There was also a limb alert bracelet to RUE but
patient had IV site in R ac. Reviewed with patient's daughter (a nurse) and patient's ; both stated there is no limb alert for the RUE. Stage 2 noted on sacrum; area cleansed and foam placed. Vascular wound to RLE; area cleansed and redressed.
Protective foams applied to b/l heels and b/l elbows. Skin tear to RU chest; cleansed with saline and applied adaptic with 4x4 and secured with paper tape. WOC consult placed.
Lungs diminished; coarse anteriorly. HRR, av paced/vpaced beats. See worklist for full assessment and vital signs.
[2025-08-02] MEDS: ZITHROMAX PO (17:47)
[2025-08-02] MEDS: PROTONIX PO (17:47)
[2025-08-02] MEDS: MAGNESIUM OXIDE PO (17:47)
[2025-08-02] MEDS: VITAMIN B-12 PO (17:47)
[2025-08-02] MEDS: VITAMIN D3 (cholecalciferol) PO (17:47)
[2025-08-02] MEDS: ZENPEP DELAYED RELEASE CAPSULE PO (17:47)
[2025-08-02] MEDS: LASIX 80 MG IV (18:06)
[2025-08-02] MEDS: NOVOLOG FLEXPEN-LOW RESISTANCE SC (18:08)
[2025-08-02 18:19] LABS: Glucose - Point of Care 134 mg/dl (70-99)
[2025-08-02] MEDS: DUONEB 3 ML INH (19:30)
[2025-08-02] MEDS: PULMICORT 0.5 MG INH (19:30)
[2025-08-02] MEDS: ELIQUIS PO (23:19)
[2025-08-02] MEDS: KCL PO (23:19)
[2025-08-02] MEDS: MUCINEX PO (23:20)
[2025-08-02] MEDS: CARDURA PO (23:20)
[2025-08-02] MEDS: ZOLOFT PO (23:20)
[2025-08-02] MEDS: ARICEPT PO (23:20)
[2025-08-02] MEDS: TOPROL XL PO (23:20)
[2025-08-02] MEDS: LIPITOR PO (23:20)
--- NOTE | 2025-08-02 23:21 | PTCARENOTE ---
Patient able to wake up and answer a few questions, but quickly falls asleep on Bipap. [place] text EMILY Benedict to make aware PO meds will be held. Patient family also report recent difficulty swallowing.
[2025-08-03] VITALS (7 sets, daily range): BP systolic 110–150; BP diastolic 45–62; PULSE 92–98; O2SAT 94; BMI 25.3; BMI 24.6
[2025-08-03 00:08] LABS: Glucose - Point of Care 105 mg/dl (70-99)
[2025-08-03] MEDS: DESENEX/MITRAZOL/ZEASORB 1 APPLIC TOPICAL ×2 (00:13→10:15)
[2025-08-03] MEDS: NOVOLOG FLEXPEN-LOW RESISTANCE SC ×3 (00:13→12:05)
--- NOTE | 2025-08-03 00:50 | PTCARENOTE ---
Patient calling out with Bipap mask on. Patient awake and agitated, asking for food. Disoriented to place and situation. RT at bedside, Bipap taken off and RT placed on 2L [place]. Re-oriented to time, place and situation. Pt in denial, states none of it
is true and he wants to go home now. Visibly upset. Called daughter, Yolanda, for patient to speak with. Pt more cooperative after speaking with daughter. AV paced on the monitor. Sp02 98 on 2L NC. Breathing even and unlabored. Pt cleaned up, juan
care provided. Foam to sacrum intact. Heels floated on pillows. Repositioning q2hr in place. Oral care done. New condom cath placed; good UO. Call mcclure within reach, reminded how to use. bed alarm set for safety.
[2025-08-03 05:27] LABS: Hematocrit 30.1 % (39.0-52.0); Hemoglobin 9.4 g/dL (13.0-18.0); Mean Corp Hgb Conc. 31.2 g/dL (33.0-37.0); Mean Corpuscular Volume 96.8 fL (80.0-94.0); Platelet Count 180 10^3/uL (130-400); Red Cell Dist. Width 15.4 % (11.5-14.5)
[2025-08-03] MEDS: SYNTHROID PO (05:39)
[2025-08-03 05:53] LABS: Blood Urea Nitrogen 66 mg/dl (9-20); Calcium 8.5 mg/dl (8.4-10.2); Carbon Dioxide 31 mmol/L (22-30); Chloride 109 mmol/L (98-107); Estimated Creatinine Clearance 36 ml/min; Glucose 90 mg/dl (70-99); Magnesium 2.0 mg/dl (1.6-2.3); Potassium 4.4 mmol/L (3.5-5.1); Sodium 144 mmol/L (135-145); eGFR 49.25
[2025-08-03 06:02] LABS: Glucose - Point of Care 100 mg/dl (70-99)
[2025-08-03] MEDS: DUONEB 3 ML INH ×2 (07:33→13:13)
[2025-08-03] MEDS: PULMICORT 0.5 MG INH (07:33)
--- NOTE | 2025-08-03 07:47 | W.PN.CARDCBS ---
Addendum entered and electronically signed by Martir Peña MD 08/03/25 08:34:
I saw and examined the patient.
The Spreading Machine Operator's note was reviewed and I agree with the note.
Comment: Briefly, 85-year-old man past medical history of heart failure with preserved ejection fraction, TAVR, CAD status post PCI and COPD on nocturnal O2 who presented in acute decompensated heart failure.
Patient resting comfortably today in the IMU
Has received IV Lasix as well as nebulizer treatments and with this has been weaned from BiPAP to 2L supplemental O2
Renal function has been stable with creatinine most recently 1.4 which appears to be his baseline
Weight is lowest on record however may not be accurate as this was done with built in bed scale�would recommend standing weights if possible
For now would continue IV Lasix 80 mg twice daily and wean oxygen as able
Would increase Farxiga to 10 mg daily
Follow potassium and supplement as needed
Rest per Latasha Hendricks
Original Note:
Today's Communication / Plan
-
continue IV lasix
follow Cr
wean supp O2
Impression / Plan
-
.
PCP: Dr. Dexter Meng
Primary Aviation Electronic Warfare Operator: Dr. Deana Palomino
Impression:
Acute on chronic HFpEF
Lethargy
Recent admission for acute HF, presented with edema/anasarca 07/15/25
FAHEEM on CKD 3a
recent gout flare
Paroxysmal atrial fibrillation
Chronic Eliquis anticoagulation
CAD
s/p BLADIMIR to mid LAD 01/13/2020
s/p BLADIMIR to prox LAD 06/21/2024
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
MS/MR, mild to mod by echo 2023
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
COPD
Chronic prednisone
Carotid stenosis
Neuropathic pain left lower extremity
gout
Hypertension
Hyperlipidemia
Hypothyroidism
Type 2 DM
Renal insufficiency
Frequent PVCs, NSVT
DNR code status
Echo 06/18/2024: EF 50 to 55%, stage II diastolic dysfunction, mild to moderate MS with peak/mean gradient 16/8 mmHg, moderate MR, severely dilated left atrium, status post number 26 mm TAVR with peak/mean gradients of 25/17 mmHg, trace AR, trace TR,
PAP 30 mmHg
ECHO 04/05/2025: EF 60 to 65%, no regional wall motion abnormalities noted, mild concentric LVH, moderate to severe MS with peak/mean gradients 26/13 mmHg, Fleming ROSARIO #26 TAVR with peak/mean gradients 37/22 mmHg, trace TR, PAP 50 to 55 mmHg
Plan:
-presented with lethargy and SOB
-responding to IV diuresis, continue. weight down overnight if accurate. Cr improving, 1.6 --> 1.4.
-holding OP metolazone at this time
-wean supp O2 as able. On 2L O2 nocturnal in home setting
-echo 03/2025 with preserved EF, mod to severe MS, s/p TAVR
-continue toprol. no stanley/arb in setting of CKD. continue farxiga.
-? candidacy for TMVR
-alternates between av paced and asensed vpaced rhythm on tele since admission
-Device check in the office on 07/11/2025 showed normal device and lead function without significant arrhythmia and good battery life
-continue amiodarone, eliquis for history of PAF
-Patient previously indicated he would be interested in Watchman, not clear if he is a candidate for this given underlying dementia and overall conditioning. Recently had multiple skin tears/bruising and has had multiple falls thought to be related
to his LLE neuropathic pain for which he is scheduled for outpt MRI 08/08/25 (has been waiting for 3 months for MRI). Dtr had already planned to go have him discharged from [facility] rehab so that she could take him for MRI.
-lyrica and vicodin on hold given lethargy
-Patient had LAD PCI 06/21/2024 and Plavix stopped 07/11/2025. Remains on ASA 81 mg and atorvastatin
Progress Note - Aviation Electronic Warfare Operator
Subjective
Date of Service: August 03, 2025
no CP. reports breathing improving and with good urine output overnight
Objective
Labs:
08/03/25 04:59
08/03/25 04:59
Labs
Hgb 9.4 g/dL (13.0-18.0) L 08/03/25 04:59
Hct 30.1 % (39.0-52.0) L 08/03/25 04:59
Plt Count 180 10^3/uL (130-400) 08/03/25 04:59
Sodium 144 mmol/L (135-145) 08/03/25 04:59
Potassium 4.4 mmol/L (3.5-5.1) 08/03/25 04:59
BUN 66 mg/dl (9-20) H 08/03/25 04:59
Creatinine 1.4 mg/dL (0.7-1.3) H 08/03/25 04:59
Glucose 90 mg/dl (70-99) 08/03/25 04:59
Vital Signs and I&O:
Vital Signs
Temp Pulse Resp BP Pulse Ox
98.1 F 76 22 150/54 95
08/03/25 07:30 08/03/25 07:36 08/03/25 07:36 08/03/25 04:00 08/03/25 07:36
Vital Signs
Temp Pulse Resp BP Pulse Ox
98.1 F 76 22 150/54 95
08/03/25 07:30 08/03/25 07:36 08/03/25 07:36 08/03/25 04:00 08/03/25 07:36
Intake & Output
07/31/25 08/01/25 08/02/25 08/03/25
07:59 07:59 07:59 07:59
Output Total 3224 / 3224
Balance -3224 / -3224
Physical Exam
Physical Exam
GEN: No distress, awake, lethargic, oriented to self, place
HEENT: supple, anicteric, mmm, eomi
LUNGS: Crackles B/L bases, no wheezes
CV: Reg, S1/S2, 2/6 murmur
ABD: soft, BS+, NT/ND
EXT: No cyanosis, clubbing. 1+ edema of B/L LE
NEURO: Gross non-focal
SKIN: Warm, pink, dry. No rash. Scattered ecchymoses of B/L UE
--- NOTE | 2025-08-03 08:03 | W.PN.HOSP.TC ---
Addendum entered and electronically signed by Abel Walker DO 08/03/25 12:47:
Updated patient's daughter Yolanda at the bedside.
She mentioned that her father looks much better compared to last night but still not back to baseline in terms of cognition.
Original Note:
Today's Communication/Plan
-
Continue diuretics
PT/OT
Assessment / Plan
Assessment / Plan
Gen-AAOx3, NAD
HEENT-NC, AT, anicteric, clear oral mm
Neck-supple
CV-reg, no M, +S1/S2
Lungs-clear B/L
Abd-soft, NT, ND
Ext-bilateral ankle edema
Musculoskeletal-no cyanosis, clubbing
Skin-warm and dry
Neuro-grossly non-focal
Psych-calm, cooperative
Acute encephalopathy -presumably due to medications, Lyrica and Vicodin. Encephalopathy resolved. Meds on hold.
Acute on chronic respiratory failure -due to acute pulmonary edema due to acute on chronic heart failure exacerbation. Chest x-ray shows pulmonary edema. Required BiPAP in the emergency room, now transitioned to nasal cannula.
Stable on 2 L nasal cannula oxygen.
Acute on chronic heart failure with preserved EF -weight is up compared to recent discharge. Continue IV Lasix. BNP is elevated. Cardiology following.
Left lower extremity neuropathy -hold Lyrica for encephalopathy. Can resume at a lower dose of 25 mg twice daily.
CAD -stable.
Paroxysmal atrial fibrillation -continue amiodarone, Eliquis.
Essential hypertension -stable.
CKD 3b -stable.
Chronic anemia -hemoglobin at baseline.
Chronic leukocytosis -unclear etiology. Afebrile. No evidence of infection. Monitor for now.
Hypothyroidism -levothyroxine.
DM2 without hyperglycemia -glucose 90 this morning. Was on Jardiance prior to admission. Glimepiride discontinued during recent hospitalization.
Currently on Farxiga 5 mg daily, aspart low resistance corrective scale.
Last hemoglobin A1c 5.9% but he does have chronic anemia, may not be reliable.
COPD without exacerbation -on chronic azithromycin, prednisone.
Medtronic permanent pacemaker
ACS s/p TAVR -with moderate bioprosthetic stenosis.
Chronic pancreatic insufficiency -continue enzyme replacement.
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 He has never had arthrocentesis that we know of. Colchicine dose reduced to 0.3 mg every other day.
Dementia unknown type -on Aricept.
Multiple skin tears -wound care consult.
DNR
PT/OT
Anticipated Discharge: > 48 hours
Subjective/Interval History
-
Date of Service: August 03, 2025
Patient seen and examined. No complaints.
Objective Data
-
Labs:
Laboratory Results
08/03/25
04:59
WBC 17.6 H
Hgb 9.4 L
Hct 30.1 L
Plt Count 180
Sodium 144
Potassium 4.4
Chloride 109 H
Carbon Dioxide 31 H
BUN 66 H
Creatinine 1.4 H
Glucose 90
Calcium 8.5
Vital Signs:
Vital Signs
Temp Pulse Resp BP Pulse Ox
98.1 F 76 22 150/54 95
08/03/25 07:30 08/03/25 07:36 08/03/25 07:36 08/03/25 04:00 08/03/25 07:36
I&O
08/02/25 08/03/25 08/04/25
06:59 06:59 06:59
Output Total 3224 / 3224
Balance -3224 / -3224
Review of Systems
-
History Source: Patient
All other systems: Reviewed and negative
[2025-08-03] MEDS: FARXIGA PO (08:40)
--- NOTE | 2025-08-03 08:55 | PTOTSP ---
Speech Language Pathology
Pt seen for clinical bedside swallow evaluation. Per chart, family reported pt with recent difficulty swallowing. Pt reported coughing for just a few days, intermittently with liquids. CXR suggesting pulmonary edema. P.O. trials of puree,
regular solids, and thin liquids provided. Slightly prolonged mastication secondary to ill-fitting dentures. No oral residue. Cough noted with 1st sip of thin liquids. No other coughing with liquids or any solids noted throughout duration of
evaluation. Given lack of PNA, will initiate diet and monitor.
Recommend:
(1) Regular solids/thin liquids
(2) Aspiration precautions: slow rate
(3) Meds as tolerated
(4) ANTENNA ENGINEER to continue to follow to monitor tolerance. If any signs of PNA or signs of aspiration, can consider instrumental swallowing assessment
[2025-08-03] MEDS: DELTASONE 10 MG PO (10:10)
[2025-08-03] MEDS: ELIQUIS 2.5 MG PO ×2 (10:12→21:29)
[2025-08-03] MEDS: ZENPEP DELAYED RELEASE CAPSULE 2 CAPSULE PO ×3 (10:12→17:51)
[2025-08-03] MEDS: MUCINEX 600 MG PO ×2 (10:12→21:29)
[2025-08-03] MEDS: TOPROL XL 25 MG PO ×2 (10:14→21:29)
[2025-08-03] MEDS: FARXIGA 5 MG PO (10:14)
[2025-08-03] MEDS: KCL 20 MEQ PO ×2 (10:15→21:29)
[2025-08-03] MEDS: LASIX 80 MG IV ×2 (10:15→16:29)
[2025-08-03] MEDS: PACERONE 200 MG PO (10:15)
--- NOTE | 2025-08-03 10:29 | ED.GENMED ---
History of Present Illness
General
Chief Complaint: Change in Mental Status
Source: patient
Time Seen by Provider: 08/02/25 11:10
History of Present Illness
History of Present Illness:
See prior note
Past History
Past History
ED Past Medical History: CAD, CHF, COPD, HTN, Hypercholesterolemia, NIDDM, Valvular disease, Hypothyroidism, Psychiatric (Anxiety, depression) and Other (PNA, Cirrhosis of the liver)
ED Past Surgical History: Cardiac (Pacemaker, TAVR, Stent X 1)
Social History
Tobacco: Former smoker
Alcohol: Former
Personal:
Living: with family
Employment: Retired
Family History
Family History: Other (Noncontributory)
Phy Exam
Physical Exam
Physical Exam:
See prior note
Scores
Heart Failure Risk
Heart Failure Risk Score: Yes
History of Stroke or TIA: No
History of intubation for respiratory distress: No
Heart rate on ED arrival >/= 110: No
SaO2 <90% on arrival on room air: No
HR >/=110 during 3min walk test (or too ill to perform test): No
ECG has acute ischemic changes: No
Urea >/=12mmol/L (BUN 33.6mg/dL): Yes
Serum CO2>/=35mmol/L: No
Troponin I or T elevated to AR Level (0.4mg/dL): No
NT-proBNP >/=5,000ng/L (5,000pg/ml): No
HF Risk Score: 1
Admission Status: MEDIUM RISK 5.1% Consider observation or discharge to home with homecare & f/u visit to PCP/Commutator Assembler, or SNF for treatment
Course
Orders/Labs/Results
Orders:
Orders
08/02/25 Breakfast
NPO
Allow oral meds: Yes
Allow clear liquids: Sips of Clears
NPO with Ice Chips: Yes
08/02/25 11:01
EKG [Electrocardiogram (*1)] Urgent
Reason for Study: Shortness of Breath
EKG- Treatment ONCE
08/02/25 11:04
COVID-19 Antigen Urgent
Source: Nasal Swab
Complete Blood Count/With Diff Urgent
Comprehensive Metabolic Panel Urgent
NT-proBNP Urgent
Urinalysis Reflex To Culture Urgent
Date Specimen was Collected: 08/02/25
Time Specimen was Collected: 11:01
INF RAPID [Influenza A+B Rapid Molecular] Urgent
JULES Source: Nasal Swab
Specimen Description:
08/02/25 11:26
CT Head W/o Iv Contrast Urgent
Comment:
Reason For Exam: change in mental status
CR Chest Portable - 1 View Urgent
Comment:
Reason For Exam: sob
Reason Study Needs to be Portable: Patient Unstable
08/02/25 11:32
Venous Blood Gas Urgent
%Oxygen/Room Air: 2L
08/02/25 12:08
Furosemide [Lasix] 40 mg IV NOW STA
08/02/25 12:13
Bipap [RESP] Urgent
Patient to use own unit?: No
Inspiratory Pressure (cm H2O): 10
Expiratory Pressure (cm H2O): 5
08/02/25 12:36
ABG [Arterial Blood Gas] Urgent
%Oxygen/Room Air: 2L
08/02/25 13:32
Admit/Transfer Patient As Directed
Co-Sign Provider:
Level of Care: Inpatient admission
Assign to:: IMU- Intermediate Care
Physician / Group: Htay
Diagnosis: CHF, Hypoxia
Reason for Hospitalization: IV diuretics, BIPAP
Expected length of stay greater than two midnights?: Yes
ELOS- Estimated Length of Stay in days: 3
I certify the patient meets the requirements for IP care: Yes
PRN Pain Medication Management As Directed
May give lesser potent ordered pain med per pt: Yes
preference::
Protocol:: Medication orders for pain may be administered in a
manner that supports deferring to patient preference
when the pt is:
- Requesting an ordered lesser potent pain medication.
Least to most potent pain medications are defined
as: acetaminophen < NSAID < tramadol < opioids
(morphine, oxycodone, hydromorphone).
- Requesting a lesser dose of the same medication IF
ORDERED.
- Requesting a less intrusive route of administration
if both routes are prescribed by the provider (PO <
IV).
08/02/25 13:37
Code Status As Directed
Resuscitation Status: Do not resuscitate
Reached after discussion with pt or family/Healthcare POA: Yes
DNR Bracelet Application ONCE
08/02/25 16:02
Acetaminophen [Tylenol] 650 mg PO Q6HPRN PRN mild pain/ fever>100.5F
Dextrose 50%-Water [Dextrose 50% Syringe] 12.5 grams IV [id number] PRN
Furosemide [Lasix] 80 mg IV BID AT 0800,1600
Glucagon [GlucaGen] 1 mg IM PRN PRN
Ipratropium/Albuterol Sulfate [Duoneb] 3 ml INH R TID
08/02/25 16:02
CARDIOLOGY CONSULT Routine
Consulting Provider: Armen Goodwin
Was physician already notified: Yes
Activity As Directed
Activity Level: Out of Bed-Early Mobility
Bedside Glucose Monitoring As Directed
Frequency: AC&HS
Additional Instructions:: Change to q6h if pt on TPN, tube feeding or not eating
Bladder Scan As Directed
Follow Bladder Retention/Intermittent Cath Algorithm?: Yes
PRN if no void in __ hours: 6
Frequency: Per Retention Algorithm
If Bladder Scan Result >: 400
then:: Straight cath
I&O [Intake/ Output] As Directed
Frequency: q12h
Straight Cath As Directed
Frequency: Per Retention Algorithm
Additional Instructions: straight cath as needed per acute urinary retention algorithm for 24 hrs
Additional Instructions: for bladder scan greater than 400 mL
Vital Signs As Directed
Frequency: Per unit guidelines
Weight As Directed
Frequency: Daily
Oxygen Therapy [O2 Therapy] [RESP] Routine
Titrate/Wean O2 to maintain O2 sat greater than (%): 92
Special Instructions: Nocturnal oxygen at 2L via nasal cannula
Ot Eval And Treat Routine
Pt Eval And Treat Routine
Activity Level: Out of Bed-Early Mobility
Speech Therapy Eval & Treat Routine
08/02/25 16:09
Pancrelipase [Zenpep Delayed Release Capsule] 1 capsule PO TIDPRN PRN
08/02/25 17:30
Pancrelipase [Zenpep Delayed Release Capsule] 2 capsule PO MEALS
08/02/25 18:00
Azithromycin [Zithromax] 250 mg PO QPM
Cholecalciferol (Vitamin D3) [VITAMIN D3 (cholecalciferol)] 50 mcg PO QPM
Cyanocobalamin [Vitamin B-12] 1,000 mcg PO QPM
Insulin Aspart Corrective Low [Novolog Flexpen-Low Resistance] See Protocol SC Q6
Magnesium Oxide 400 mg PO QPM
Pantoprazole [Protonix] 40 mg PO QPM
08/02/25 20:00
Apixaban [Eliquis] 2.5 mg PO BID
Budesonide [Pulmicort] 0.5 mg INH R BID
Guaifenesin [Mucinex] 600 mg PO BID
Metoprolol Xl [Toprol Xl] 25 mg PO BID
Potassium Chloride [KCl] 20 meq PO BID
08/02/25 22:00
Atorvastatin [Lipitor] 40 mg PO HS
Donepezil HCl [Aricept] 10 mg PO HS
Doxazosin Mesylate [Cardura] 3 mg PO HS
Sertraline HCl [Zoloft] 50 mg PO HS
08/03/25 04:59
Basic Metabolic Panel IN AM
Complete Blood Count/No Diff IN AM
Magnesium IN AM
08/03/25 06:00
Levothyroxine [Synthroid] 175 mcg PO DAILY@0600
08/03/25 08:00
Amiodarone [Pacerone] 200 mg PO DAILY
Dapagliflozin [Farxiga] 5 mg PO DAILY
Prednisone [Deltasone] 10 mg PO DAILY
08/04/25 08:00
Colchicine 0.3 mg PO Q48H
Abnormal Lab Results
08/02/25 08/02/25 08/02/25
11:04 11:32 12:36
WBC 16.8 H 10^3/uL
(4.8-10.8)
RBC 3.22 L 10^6/uL
(4.70-6.10)
Hgb 9.4 L g/dL
(13.0-18.0)
Hct 31.0 L %
(39.0-52.0)
MCV 96.3 H fL
(80.0-94.0)
MCHC 30.3 L g/dL
(33.0-37.0)
RDW 15.7 H %
(11.5-14.5)
MPV 11.2 H fL
(7.4-10.4)
Abs Immat Gran (auto) 0.4 H 10^3/uL
(0-0.05)
Absolute Neuts (auto) 13.8 H 10^3/uL
(1.4-6.5)
Absolute Lymphs (auto) 0.7 L 10^3/uL
(1.2-3.4)
Absolute Monos (auto) 1.4 H 10^3/uL
(0.1-0.6)
Immature Gran % 2.1 H %
(0-0.5)
Neutrophils % 82.3 H %
(42.2-75.2)
Lymphocytes % 4.2 L %
(20.5-51.1)
pO2 74 L mmHg
(83-108)
VBG pCO2 54 H mmHg
(35-48)
VBG pO2 72 H mmHg
(30-50)
VBG HCO3 28.5 H mmol/L
(22-27)
Chloride 109 H mmol/L
(98-107)
Carbon Dioxide 31 H mmol/L
(22-30)
BUN 66 H mg/dl
(9-20)
Creatinine 1.6 H mg/dL
(0.7-1.3)
Glucose 113 H mg/dl
(70-99)
Total Protein 5.7 L g/dl
(6.3-8.2)
Albumin 3.2 L g/dl
(3.5-5.0)
08/02/25 11:04
08/02/25 11:04
Vital Signs
Initial and Last Documented VS:
Initial Vital Signs
BP
130/56
08/02/25 10:33
Last Documented Vital Signs
Temp Pulse Resp BP Pulse Ox
98.1 F 84 22 126/49 95
08/03/25 07:30 08/03/25 10:15 08/03/25 07:36 08/03/25 10:15 08/03/25 07:36
*Pulse Oximetry
SaO2: 95
Nasal Cannula flow liters per minute: 2
Oxygen Mode of Delivery: BiPAP
Patient hypoxic: no
*Critical Care Note
Total Time (30-74mins, 75-104mins- exclusive of procedures): Not Applicable
Update Note
Update Note:
This is an addendum to the previous note. Please refer to the note from visit on 08/02/2025
ED Attending Note
-
Portions of this chart may have been created with voice recognition software.� Occasional wrong word or��sound alike� substitutions may have occurred due to the inherent limitations of voice recognition software.
Discharge Plan
Departure
Patient Disposition: Admit
Date of Disposition: 08/02/25
Time of Disposition: 12:56
Presentation/result/management discussed w/ accepting MD/DO: Hospitalist
Discharge Problem:
Acute CHF
Interventions
Interventions:
*Risk Screen - Suicide Last Done: 08/02/25 10:42
*General Assessment Last Done: 08/02/25 10:42
*Neglect/Abuse Screening Last Done: 08/02/25 10:42
*ED COVID-19 Vaccine History Last Done: 08/02/25 10:42
*Nursing Disposition Last Done: 08/02/25 16:36
ED- Pulmonary Assessment Last Done: 08/02/25 10:51
ED- Neurological Assessment Last Done: 08/02/25 10:51
ED- Cardiac Assessment Last Done: 08/02/25 10:51
ED Swallowing Screen Last Done: 08/02/25 11:34
Discharge Date and Time
Discharge Date/Time: 08/02/25 16:15
--- NOTE | 2025-08-03 12:01 | WOUNDNOTE ---
RIGHT SIDE CHEST
--- NOTE | 2025-08-03 12:02 | WOUNDNOTE ---
SACRUM/COCCYX/GLUTEAL CLEFT
--- NOTE | 2025-08-03 12:02 | WOUNDNOTE ---
PERINEUM/BILATERAL POSTERIOR THIGHS
[2025-08-03 12:04] LABS: Glucose - Point of Care 144 mg/dl (70-99)
--- NOTE | 2025-08-03 12:05 | WOUNDNOTE ---
[facility] RN note: Patient admitted with CHF exacerbation.
See H&P for complete history.
PMH: NIDDM, renal insufficiency, CAD, COPD, HTN, valvular disease, anxiety, cirrhosis of liver, LE edema (he wears compression stockings at home), a fib (Eliquis), pancreatic insufficiency, LAD stent, pacer, TAVR, former smoker, colon resection,
total hip?
Wound Location and type/assessment: Patient last seen, 07/20/25 for multiple skin tears on arms and sacral stage 2 PI, R hill abrasion. Now admitted with: healing dermal skin tears UE's, all scabbed. R hill with healing abrasion. Skin tear on R
chest from EKG lead. Elbows with protective foams and intact. Gluteal cleft vertical small stage 2 pressure injury vs MASD with non blanchable sacral red skin. Heels are intact. Groin with MASD, fungal powder in use.
Appetite: good.
Pressure redistribution devices in place: Air mattress. Air chair cushion. Pillows under calves. Foam adhesives on heels.
Plan: Local wound care done, repositioned patient and updated nurse Vladimir.
Care plan to be updated and will follow as needed.
Note to case management of equipment requested for discharge: VN if goes home.
Recommend follow up at wound care center upon discharge.
--- NOTE | 2025-08-03 16:08 | CM ---
Reviewed the chart notes and spoke with the patient and his spouse at the bedside. Patient was recently discharged from 07/[address] [facility] for short term rehab. Prior to hospitalization, patient resides with spouse in a one story home with one
step to enter. The patient has O2 through [employer] and a shower rail. The patient anticipates returning to SNF prior to transitioning back to home. CM continues to be available to patient/family and is monitoring medical plan for needs at discharge.
Plan: Discharge to most likely to SNF prior to transitioning home.
[2025-08-03] MEDS: MAGNESIUM OXIDE 400 MG PO (17:52)
[2025-08-03] MEDS: VITAMIN B-12 1000 MCG PO (17:52)
[2025-08-03] MEDS: PROTONIX 40 MG PO (17:52)
[2025-08-03] MEDS: ZITHROMAX 250 MG PO (17:52)
[2025-08-03] MEDS: VITAMIN D3 (cholecalciferol) 50 MCG PO (17:52)
[2025-08-03 17:54] LABS: Glucose - Point of Care 275 mg/dl (70-99)
--- NOTE | 2025-08-03 18:12 | PTCARENOTE ---
1730: Pt received from IMU AAOx2 with confusion and forgetfulness. Pt oriented to room. Bed alarm on place. Made patient comfortable. Cont to assess patient status.
[2025-08-03] MEDS: NOVOLOG FLEXPEN-LOW RESISTANCE 3 UNITS SC (18:40)
[2025-08-03] MEDS: DUONEB INH (19:56)
[2025-08-03] MEDS: PULMICORT INH (19:56)
[2025-08-03] MEDS: CARDURA 3 MG PO (21:28)
[2025-08-03] MEDS: ZOLOFT 50 MG PO (21:29)
[2025-08-03] MEDS: LIPITOR 40 MG PO (21:29)
[2025-08-03] MEDS: ARICEPT 10 MG PO (21:29)
[2025-08-03 21:35] LABS: Glucose - Point of Care 192 mg/dl (70-99)
[2025-08-03] MEDS: TYLENOL 650 MG PO (21:48)
[2025-08-04] VITALS (7 sets, daily range): BP systolic 104–121; BP diastolic 39–76; PULSE 2; BMI 25.1
[2025-08-04] MEDS: DESENEX/MITRAZOL/ZEASORB 1 APPLIC TOPICAL ×3 (00:04→20:21)
[2025-08-04] MEDS: SYNTHROID 175 MCG PO (06:19)
[2025-08-04 07:31] LABS: Glucose - Point of Care 128 mg/dl (70-99)
[2025-08-04] MEDS: PULMICORT 0.5 MG INH ×2 (07:38→19:29)
[2025-08-04] MEDS: DUONEB 3 ML INH ×3 (07:38→19:29)
[2025-08-04 08:25] LABS: Blood Urea Nitrogen 65 mg/dl (9-20); Calcium 8.5 mg/dl (8.4-10.2); Carbon Dioxide 31 mmol/L (22-30); Chloride 107 mmol/L (98-107); Estimated Creatinine Clearance 34 ml/min; Glucose 109 mg/dl (70-99); Potassium 4.1 mmol/L (3.5-5.1); Sodium 143 mmol/L (135-145); eGFR 45.34
[2025-08-04] MEDS: NOVOLOG FLEXPEN-LOW RESISTANCE SC (08:58)
[2025-08-04] MEDS: PACERONE 200 MG PO (09:01)
[2025-08-04] MEDS: KCL 20 MEQ PO ×2 (09:01→20:19)
[2025-08-04] MEDS: ZENPEP DELAYED RELEASE CAPSULE 2 CAPSULE PO ×3 (09:01→17:15)
[2025-08-04] MEDS: FARXIGA 10 MG PO (09:02)
[2025-08-04] MEDS: DELTASONE 10 MG PO (09:02)
[2025-08-04] MEDS: COLCHICINE 0.3 MG PO (09:02)
[2025-08-04] MEDS: MUCINEX 600 MG PO ×2 (09:02→20:21)
[2025-08-04] MEDS: ELIQUIS 2.5 MG PO ×2 (09:02→20:20)
[2025-08-04] MEDS: FLUSH (NSS) 1 FLUSH IV ×2 (09:03→16:46)
[2025-08-04] MEDS: LASIX 80 MG IV ×2 (09:03→16:45)
[2025-08-04] MEDS: TOPROL XL 25 MG PO ×2 (09:03→20:20)
--- NOTE | 2025-08-04 09:24 | W.PN.CARDCBS ---
Addendum entered and electronically signed by Martir Peña MD 08/04/25 14:41:
I saw and examined the patient.
The Hasher Operator's note was reviewed and I agree with the note.
Comment: Briefly, 85-year-old man past medical history of heart failure with preserved ejection fraction, TAVR, CAD status post PCI and COPD on nocturnal O2 who presented in acute decompensated heart failure.
Patient resting comfortably in bed today after being transferred out of IMU to telemetry floor
Has received IV Lasix as well as nebulizer treatments and with this has been weaned from BiPAP to RA
Renal function remains stable with creatinine most recently 1.5 which appears to be his baseline
Weight is up slightly today and still appears mildly volume overloaded on exam
For now would continue IV Lasix 80 mg twice daily
Would consider a dose of metolazone tomorrow if no significant improvement in his volume status
Continue Farxiga
Discussed with patient's daughter at bedside
Original Note:
Today's Communication / Plan
-
Continue with Lasix 80 mg IV BID, 3 lb weight gain seen today is likely from changing scales between IMU and 4 E., if weight is up again tomorrow consider dose of metolazone
Would also consider changing from torsemide to Lasix as an outpatient
Impression / Plan
-
.
PCP: Dr. Dexter Meng
Primary Feeder Loader: Dr. Deana Palomino
Impression:
Acute on chronic HFpEF
Lethargy
Recent admission for acute HF, presented with edema/anasarca 07/15/25
FAHEEM on CKD 3a
recent gout flare
Paroxysmal atrial fibrillation
Chronic Eliquis anticoagulation
CAD
s/p BLADIMIR to mid LAD 01/13/2020
s/p BLADIMIR to prox LAD 06/21/2024
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
MS/MR, mild to mod by echo 2023
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
COPD
Chronic prednisone
Carotid stenosis
Neuropathic pain left lower extremity
gout
Hypertension
Hyperlipidemia
Hypothyroidism
Type 2 DM
Renal insufficiency
Frequent PVCs, NSVT
DNR code status
Echo 06/18/2024: EF 50 to 55%, stage II diastolic dysfunction, mild to moderate MS with peak/mean gradient 16/8 mmHg, moderate MR, severely dilated left atrium, status post number 26 mm TAVR with peak/mean gradients of 25/17 mmHg, trace AR, trace TR,
PAP 30 mmHg
ECHO 04/05/2025: EF 60 to 65%, no regional wall motion abnormalities noted, mild concentric LVH, moderate to severe MS with peak/mean gradients 26/13 mmHg, Fleming ROSARIO #26 TAVR with peak/mean gradients 37/22 mmHg, trace TR, PAP 50 to 55 mmHg
Plan:
-Weight is down at least 6 lbs since admission, but patient has been moved from [facility] to [facility] and also has been weight in bed scale and with standing scale. Patient weighs 160 lbs on VS reviewed by me 08/04/2025. Patient is below any previous dry
weight.
-Continue Lasix 80 mg IV BID for now. Patient was taking torsemide 30 mg PO BID plus metolazone 5 mg Wednesdays and Fridays prior to admission, but metolazone is currently on hold.
-Could consider switching from torsemide to Lasix at time of D/C as patient was only out of the hospital about 2 weeks before he returned with recurrent acute HF
-EF was 60 to 65% by echo 04/05/2025, no need to repeat this admission.
-Echo from 04/05/2025 was reviewed by me as noted above and there is also evidence of moderate to severe MS with peak mean 26/13 mmHg. Patient is a DNR and has dementia, not clear if he has ever been evaluated for TMVR candidacy.
-Patient has a previous TAVR with peak/mean 37/22 mmHg by echo 3 months ago
-Outpatient dose of Toprol XL 25 mg BID has been continued
-Patient is not chronically on SGLT2 inhibitor
-Patient is not chronically on spironolactone
-Patient with known history of paroxysmal A-fib and appears to be in sinus with AV pacing on telemetry reviewed by me on 07/18/2025. Outpatient dose of amiodarone 200 mg daily has been continued, QTc 496 ms on ECG from 08/02/2025 that was reviewed by
me from 08/04/2025
-Device check in the office on 07/11/2025 showed normal device and lead function without significant arrhythmia and good battery life
-Outpatient dose of Eliquis 2.5 mg BID has been continued. Patient indicates he would be interested in watchman, but not sure if he is a candidate for this given underlying dementia.
-Patient had LAD PCI 06/21/2024 and Plavix has been stopped at this point.
-I talked with the patient's daughter bedside on 08/04/2025 and she is an POWER TOOL REPAIRER. We reviewed the desire for patient to be able to complete outpatient MRI of the lumbar spine that is scheduled for 08/08/2025 and this would help facilitate injection from
pain management clinic and patient should then be able to reduce his doses of Lyrica and hydrocodone, since he has required higher doses of pain medications he has lost weight and has not been thriving as he was prior to his lumbar back pain.
Progress Note - Feeder Loader
Subjective
Date of Service: August 04, 2025
He thinks he is doing well, his daughter who is an POWER TOOL REPAIRER is visiting in the room
Objective
Labs:
08/03/25 04:59
08/04/25 07:12
Labs
Hgb 9.4 g/dL (13.0-18.0) L 08/03/25 04:59
Hct 30.1 % (39.0-52.0) L 08/03/25 04:59
Plt Count 180 10^3/uL (130-400) 08/03/25 04:59
Sodium 143 mmol/L (135-145) 08/04/25 07:12
Potassium 4.1 mmol/L (3.5-5.1) 08/04/25 07:12
BUN 65 mg/dl (9-20) H 08/04/25 07:12
Creatinine 1.5 mg/dL (0.7-1.3) H 08/04/25 07:12
Glucose 109 mg/dl (70-99) H 08/04/25 07:12
Vital Signs and I&O:
Vital Signs
Temp Pulse Resp BP Pulse Ox
98.1 F 76 17 108/64 96
08/04/25 07:10 08/04/25 09:03 08/04/25 07:40 08/04/25 09:03 08/04/25 08:58
Vital Signs
Temp Pulse Resp BP Pulse Ox
98.1 F 76 17 108/64 96
08/04/25 07:10 08/04/25 09:03 08/04/25 07:40 08/04/25 09:03 08/04/25 08:58
Intake & Output
08/02/25 08/03/25 08/04/25 08/05/25
06:59 06:59 06:59 06:59
Intake Total 480 / 480
Output Total 3225 / 3225 1500 / 1500
Balance -3225 / -3225 -1020 / -1020
Physical Exam
Physical Exam
GEN: No distress, AAO to person, place and situation
LUNGS: RA. No audible wheeze
CV: AV paced on tele
[2025-08-04] MEDS: TYLENOL 650 MG PO ×2 (10:46→20:20)
--- NOTE | 2025-08-04 11:09 | CM ---
Chart reviewed. Care ongoing.
Stable on 2L O2 currently.
Therapy rec SNF at d/c. Met w/ patient, spouse and daughter bedside to discuss SNF. Daughter stated patient and spouse reside at [facility] the [facility] and prefers [facility] for rehab. Daughter stated patient was there for STR but did not pay
for a bed hold as she did not know how long patient would be in the hospital. Daughter is hoping there will be a bed available when patient is medically stable.
Patient stated hospitalist told him he may be ready in another 2 days, possibly over the weekend.
Referral sent to [facility] in [facility]
Will need auth prior to d/c
Plan: SNF, prefers [facility]
--- NOTE | 2025-08-04 12:03 | W.PN.HOSP.TC ---
Addendum entered and electronically signed by Abel Walker DO 08/04/25 13:31:
Patient has healing dermal skin tears of upper extremities, all scabbed. Right hill with healing abrasion. Skin tear on right chest from EKG lead. Gluteal cleft vertical small stage II pressure injury versus MASD with nonblanchable sacral right
skin. Groin with MASD.
Original Note:
Today's Communication/Plan
-
Continue diuretics
Resume low-dose Lyrica
PT/OT
Assessment / Plan
Assessment / Plan
Gen-AAOx3, NAD
HEENT-NC, AT, anicteric, clear oral mm
Neck-supple
CV-reg, no M, +S1/S2
Lungs-clear B/L
Abd-soft, NT, ND
Ext-bilateral ankle edema
Musculoskeletal-no cyanosis, clubbing
Skin-warm and dry
Neuro-grossly non-focal
Psych-calm, cooperative
Acute encephalopathy -presumably due to medications, Lyrica and Vicodin. Encephalopathy resolved. Minimize opiates.
Acute on chronic respiratory failure -due to acute pulmonary edema due to acute on chronic heart failure exacerbation. Chest x-ray shows pulmonary edema. Required BiPAP in the emergency room, now transitioned to nasal cannula.
Stable on 2 L nasal cannula oxygen.
Acute on chronic heart failure with preserved EF -weight is up compared to recent discharge. Continue IV Lasix. BNP is elevated. Cardiology following.
Left lower extremity neuropathy - Possible lumbar radiculopathy. Patient's daughter states he is scheduled for a lumbar MRI on August 08.
Can resume Lyrica at a low dose of 25 mg once daily and monitor. Discussed with patient and at the bedside.
CAD -stable.
Paroxysmal atrial fibrillation -continue amiodarone, Eliquis.
Essential hypertension -stable.
CKD 3b -stable.
Chronic anemia -hemoglobin at baseline.
Chronic leukocytosis -unclear etiology. Afebrile. No evidence of infection. Monitor for now.
Hypothyroidism -levothyroxine.
DM2 without hyperglycemia -glucose 109 this morning. Was on Jardiance prior to admission. Glimepiride discontinued during recent hospitalization.
Currently on Farxiga 5 mg daily, aspart low resistance corrective scale.
Last hemoglobin A1c 5.9% but he does have chronic anemia, may not be reliable.
COPD without exacerbation -on chronic azithromycin, prednisone.
Medtronic permanent pacemaker
ACS s/p TAVR -with moderate bioprosthetic stenosis.
Chronic pancreatic insufficiency -continue enzyme replacement.
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 He has never had arthrocentesis that we know of. Colchicine dose reduced to 0.3 mg every other day.
Dementia unknown type -on Aricept.
Multiple skin tears -wound care consult.
DNR
Dispo -eventual discharge back to [facility] for rehab.
Patient's updated at the bedside.
Anticipated Discharge: 24 - 48 hours
Subjective/Interval History
-
Date of Service: August 04, 2025
Patient seen and examined. No complaints.
Objective Data
-
Labs:
Laboratory Results
08/04/25
07:12
Sodium 143
Potassium 4.1
Chloride 107
Carbon Dioxide 31 H
BUN 65 H
Creatinine 1.5 H
Glucose 109 H
Calcium 8.5
Vital Signs:
Vital Signs
Temp Pulse Resp BP Pulse Ox
97.8 F 81 18 106/76 97
08/04/25 11:38 08/04/25 11:38 08/04/25 11:38 08/04/25 11:38 08/04/25 11:38
I&O
08/03/25 08/04/25 08/05/25
06:59 06:59 06:59
Intake Total 480 / 480
Output Total 3225 / 3225 1500 / 1500
Balance -3225 / -3225 -1020 / -1020
Review of Systems
-
History Source: Patient
All other systems: Reviewed and negative
[2025-08-04 12:06] LABS: Glucose - Point of Care 190 mg/dl (70-99)
[2025-08-04] MEDS: NOVOLOG FLEXPEN-LOW RESISTANCE 1 UNITS SC (12:40)
[2025-08-04] MEDS: LYRICA 25 MG PO (12:40)
--- NOTE | 2025-08-04 13:17 | PN.CDI ---
CDI
- -
CDI:
Physician Documentation Request
Admit Date: 08/02/25 14:24
Dear Doctor Aaron,
Please review the following and provide your response in the progress notes.
Clinical Indicators:
Pt admitted with CHFpEF exacerbation/Acute on Chronic Hypoxic/Hypercapnic respiratory failure
Documented per [facility] note 08/03,' Patient last seen, 07/20/25 for multiple skin tears on arms and sacral stage 2 PI, R hill abrasion.....Elbows with protective foams and intact. Gluteal cleft vertical small stage 2 pressure injury vs MASD with non
blanchable sacral red skin....'
Physician documentation of the type and location of wounds is required for compliant documentation. Based on the above clinical findings and your assessment, please provide the following in your progress note:
1. Location of the ulcer/wound, including laterality.
2. Type (etiology) of ulcer/wound:
- Pressure (decubitus) ulcer
- Non-pressure ulcer
- Other ( please specify)
Use of terms such as suspected, likely, concern for, or probable (associated with a specific diagnosis that is being evaluated, monitored, or treated as if it exists) are acceptable and can be coded in the inpatient setting, when documented at the
time of discharge.
Thank you,
Bria Hernandez RN
CDI Specialist
[facility] [facility]
Please use your independent medical judgment in providing your response.
*Source: National Pressure Ulcer Advisory Panel (NPUAP)
--- NOTE | 2025-08-04 16:38 | PTCARENOTE ---
Pt AAO x3, BOOKER; OOB to chair with assist x2- brandon well; sl unsteady w/OOB activity. Denies weakness/dizziness. VSS. Telemetry:AV paced rhythm. Pt has +1 edema LUE- does not keep arm elevated. On room air at present; pulse ox 97%, pt with (+)
slight WEBB; denies SOB. Abd soft, rounded, brandon PO well. Condom cath P/I clear yellow urine. Resting comfortably at present. Will continue to monitor.
[2025-08-04 16:55] LABS: Glucose - Point of Care 283 mg/dl (70-99)
[2025-08-04] MEDS: NOVOLOG FLEXPEN-LOW RESISTANCE 3 UNITS SC (17:14)
[2025-08-04] MEDS: PROTONIX 40 MG PO (17:15)
[2025-08-04] MEDS: VITAMIN B-12 1000 MCG PO (17:15)
[2025-08-04] MEDS: MAGNESIUM OXIDE 400 MG PO (17:15)
[2025-08-04] MEDS: VITAMIN D3 (cholecalciferol) 50 MCG PO (17:16)
[2025-08-04] MEDS: ZITHROMAX 250 MG PO (17:16)
[2025-08-04] MEDS: CARDURA 3 MG PO (20:20)
[2025-08-04] MEDS: ZOLOFT 50 MG PO (20:20)
[2025-08-04] MEDS: LIPITOR 40 MG PO (20:20)
[2025-08-04] MEDS: ARICEPT 10 MG PO (20:21)
[2025-08-04 21:41] LABS: Glucose - Point of Care 289 mg/dl (70-99)
[2025-08-05] MEDS: SYNTHROID 175 MCG PO (02:45)
[2025-08-05 03:16] VITALS: BP 120/49
[2025-08-05 06:00] VITALS: BMI 25.3
[2025-08-05] MEDS: DUONEB 3 ML INH ×3 (07:07→19:08)
[2025-08-05] MEDS: PULMICORT 0.5 MG INH ×2 (07:07→19:08)
[2025-08-05 07:25] VITALS: BP 108/92
[2025-08-05 07:27] LABS: Glucose - Point of Care 127 mg/dl (70-99)
[2025-08-05] MEDS: NOVOLOG FLEXPEN-LOW RESISTANCE SC (07:52)
[2025-08-05] MEDS: FARXIGA 10 MG PO (08:40)
[2025-08-05] MEDS: LYRICA 25 MG PO (08:41)
[2025-08-05] MEDS: PACERONE 200 MG PO (08:41)
[2025-08-05] MEDS: TOPROL XL 25 MG PO ×2 (08:41→20:57)
[2025-08-05] MEDS: MUCINEX 600 MG PO ×2 (08:41→20:57)
[2025-08-05] MEDS: ZENPEP DELAYED RELEASE CAPSULE 2 CAPSULE PO ×3 (08:41→17:21)
[2025-08-05] MEDS: DELTASONE 10 MG PO (08:42)
[2025-08-05] MEDS: ELIQUIS 2.5 MG PO ×2 (08:42→20:56)
[2025-08-05] MEDS: DESENEX/MITRAZOL/ZEASORB 1 APPLIC TOPICAL ×2 (08:42→21:02)
--- NOTE | 2025-08-05 09:15 | W.PN.CARDCBS ---
Addendum entered and electronically signed by Roslyn Pichardo DO 08/05/25 16:23:
I saw and examined the patient.
The Color Laboratory Technician's note was reviewed and I agree with the note.
Comment: Patient was seen and examined. Lying supine on room air with no new complaints. States that he feels better with IV Lasix. No chest pain or pressure. No dizziness or lightheadedness.
General: No acute distress, AAOX3
Neck: Negative JVD
Heart: Regular, positive S1/S2, 2/6 SM + Device
Lungs: CTA b/l, negative wheezes/rales/rhonchi
Abd: Positive BS, NT/ND, neg rebound/rigidity/guarding
Ext: No edema
Plan:
Medically complex 85-year-old gentleman admitted with heart failure with preserved ejection fraction and valvular heart disease
- Unclear if weights are accurate. Will ask nursing to use standing scale
- Continue IV Lasix. Will hold off metolazone at this time but consider if diuresis and adequate
- Monitor renal function and electrolytes with diuresis
-Outpatient dose of Toprol XL 25 mg BID has been continued
-Continue Farxiga 10 mg. Patient is not chronically on spironolactone due to CKD
-Echo 04/05/2025 EF was 60 to 65% with moderate to severe MS with peak mean 26/13 mmHg, TAVR with peak/mean 37/22 mmHg.
-Evaluated for TMVR candidacy ongoing with outpatient floater operator
-Patient with known history of paroxysmal A-fib and appears to be in sinus with AV pacing upon review of telemetry. Outpatient dose of amiodarone 200 mg daily has been continued, QTc 496 ms on ECG from 08/02/2025.
-Outpatient dose of Eliquis 2.5 mg BID has been continued. Patient has indicated he would be interested in watchman, but not sure if he is a candidate for this given underlying dementia.
-Patient had LAD PCI 06/21/2024 and Plavix has been stopped at this point.
Original Note:
Today's Communication / Plan
-
BMP pending
Consider given dose of metolazone this afternoon if renal function and electrolytes stable
Continue IV diuresis with consideration of transitioning to oral within next 24 hours
Impression / Plan
-
.
PCP: Dr. Dexter Meng
Primary Journal Entry Audit Clerk: Dr. Deana Palomino
Impression:
Presented 08/02/2025 with lethargy, weight gain and shortness of breath
Acute on chronic HFpEF, proBNP 3690
Lethargy
FAHEEM on CKD 3a
Recent admission for acute HF, presented with edema/anasarca 07/15/25
Recent gout flare
Paroxysmal atrial fibrillation
Chronic Eliquis anticoagulation
CAD
s/p BLADIMIR to mid LAD 01/13/2020
s/p BLADIMIR to prox LAD 06/21/2024
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
MS/MR, mild to mod by echo 2023
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
COPD
Chronic prednisone
Carotid stenosis
Neuropathic pain left lower extremity
gout
Hypertension
Hyperlipidemia
Hypothyroidism
Type 2 DM
Renal insufficiency
Frequent PVCs, NSVT
DNR code status
Echo 06/18/2024: EF 50 to 55%, stage II diastolic dysfunction, mild to moderate MS with peak/mean gradient 16/8 mmHg, moderate MR, severely dilated left atrium, status post number 26 mm TAVR with peak/mean gradients of 25/17 mmHg, trace AR, trace TR,
PAP 30 mmHg
ECHO 04/05/2025: EF 60 to 65%, no regional wall motion abnormalities noted, mild concentric LVH, moderate to severe MS with peak/mean gradients 26/13 mmHg, Fleming ROSARIO #26 TAVR with peak/mean gradients 37/22 mmHg, trace TR, PAP 50 to 55 mmHg
Plan:
-Presented 08/02/2025 with lethargy, weight gain and shortness of breath and found to have acute on chronic heart failure, proBNP 3690
-Ongoing IV diuresis with Lasix 80 mg IV twice daily. Current weight is 161 lbs. Weight is down at least 5-6 lbs since admission.
-Patient was taking torsemide 30 mg PO BID plus metolazone 5 mg Wednesdays and Fridays prior to admission, but metolazone is currently on hold.
-BMP pending for 08/05/2025. If renal function stable would consider giving dose of metolazone with afternoon Lasix
-Keep K greater than 4, mag greater than 2
-Could consider switching from torsemide to Lasix at time of D/C as patient was only out of the hospital about 2 weeks before he returned with recurrent acute HF with Torsemide
-Echo 04/05/2025 EF was 60 to 65% with moderate to severe MS with peak mean 26/13 mmHg, TAVR with peak/mean 37/22 mmHg. No need to repeat this admission. Patient is a DNR and has dementia, not clear if he has ever been evaluated for TMVR candidacy.
-Outpatient dose of Toprol XL 25 mg BID has been continued
-Continue Farxiga 10 mg. Patient is not chronically on spironolactone due to CKD
-Patient with known history of paroxysmal A-fib and appears to be in sinus with AV pacing upon review of telemetry. Outpatient dose of amiodarone 200 mg daily has been continued, QTc 496 ms on ECG from 08/02/2025.
-Outpatient dose of Eliquis 2.5 mg BID has been continued. Patient has indicated he would be interested in watchman, but not sure if he is a candidate for this given underlying dementia.
-Patient had LAD PCI 06/21/2024 and Plavix has been stopped at this point.
-Presented with lethargy and found to be encephalopathy presumed to be from Lyrica and Vicodin which he was getting as outpatient. Symptoms have resolved. Primary service has resumed low-dose Lyrica. Scheduled for outpatient MRI 08/08 to assess for
lumbar radiculopathy.
HPI 08/02/2025:
history of chronic diastolic CHF, PAF, CAD, aortic stenosis status post TAVR, status post pacer, renal insufficiency, hypertension, diabetes, COPD. He was admitted to [place] in July 2025 with CHF at the presenting with edema anasarca. His
discharge weight was 170 pounds and outpatient torsemide was increased from 20 mg twice daily to 30 mg twice daily as well as metolazone 5 mg Friday and Friday with creatinine of 1.5 on discharge. Lyrica was added for lower extremity
neuropathy was discharged to [facility].
He presents with lethargy and increasing shortness of breath. Of note Lyrica had been increased recently as well. Vicodin for leg pain. His weight at [facility] was 173.74 pounds per daughter. He is admitted now with increasing lethargy and
acute diastolic CHF. Will treat with IV Lasix. Will follow renal insufficiency with creatinine of 1.6 at present. Discussed with and daughter at bedside.
Progress Note - Journal Entry Audit Clerk
Subjective
Date of Service: August 05, 2025
Patient seen and examined. Patient resting comfortably laying in bed currently off oxygen. Reports shortness of breath has improved
Objective
Labs:
08/03/25 04:59
Labs
Hgb 9.4 g/dL (13.0-18.0) L 08/03/25 04:59
Hct 30.1 % (39.0-52.0) L 08/03/25 04:59
Plt Count 180 10^3/uL (130-400) 08/03/25 04:59
Sodium 143 mmol/L (135-145) 08/04/25 07:12
Potassium 4.1 mmol/L (3.5-5.1) 08/04/25 07:12
BUN 65 mg/dl (9-20) H 08/04/25 07:12
Creatinine 1.5 mg/dL (0.7-1.3) H 08/04/25 07:12
Glucose 109 mg/dl (70-99) H 08/04/25 07:12
Vital Signs and I&O:
Vital Signs
Temp Pulse Resp BP Pulse Ox
98.5 F 75 18 108/92 95
08/05/25 07:25 08/05/25 08:41 08/05/25 07:25 08/05/25 08:41 08/05/25 07:25
Vital Signs
Temp Pulse Resp BP Pulse Ox
98.5 F 75 18 108/92 95
08/05/25 07:25 08/05/25 08:41 08/05/25 07:25 08/05/25 08:41 08/05/25 07:25
Intake & Output
08/03/25 08/04/25 08/05/25 08/06/25
06:59 06:59 06:59 06:59
Intake Total 480 / 480 2280 / 2280
Output Total 3225 / 3225 1500 / 1500 1100 / 1100
Balance -3225 / -3225 -1020 / -1020 1180 / 1180
Physical Exam
Physical Exam
GEN: No distress, awake, Ox3, lying in bed
HEENT: supple, anicteric, mmm
LUNGS: Coarse breath sounds bilaterally, on room air
CV: Reg, S1/S2, 2/6 syst murmur
ABD: soft, BS+, NT/ND
EXT: No edema, clubbing or cyanosis
NEURO: Gross non-focal
SKIN: No rash, warm, dry, pink
[2025-08-05] MEDS: TYLENOL 650 MG PO (10:43)
[2025-08-05 11:16] VITALS: BP 124/50
[2025-08-05 11:55] LABS: Glucose - Point of Care 166 mg/dl (70-99)
[2025-08-05 12:09] VITALS: BP 143/56; PULSE 78; O2SAT 94
--- NOTE | 2025-08-05 12:19 | W.PN.HOSP.TC ---
Today's Communication/Plan
-
Await labs
Diuretics
Adjust insulin
Acapella, incentive spirometer
Assessment / Plan
Assessment / Plan
Gen-AAOx3, NAD
HEENT-NC, AT, anicteric, clear oral mm
Neck-supple
CV-reg, no M, +S1/S2
Lungs-mild end expiratory wheezing bilaterally
Abd-soft, NT, ND
Ext-bilateral ankle edema
Musculoskeletal-no cyanosis, clubbing
Skin-warm and dry
Neuro-grossly non-focal
Psych-calm, cooperative
Acute encephalopathy -presumably due to medications, Lyrica and Vicodin, as well as hypoxia. Encephalopathy resolved. Minimize opiates.
Acute on chronic respiratory failure -due to acute pulmonary edema due to acute on chronic heart failure exacerbation. Possible acute bronchitis given coughing and mild wheezing. Patient cannot cough up any phlegm.
Chest x-ray shows pulmonary edema. Required BiPAP in the emergency room, now transitioned to nasal cannula.
Oxygenation improved, 97% on room air.
Continue Mucinex, add Acapella, incentive spirometer.
Acute on chronic heart failure with preserved EF -weight is up compared to recent discharge. Continue IV Lasix. BNP is elevated. Cardiology following. Weight unfortunately higher today compared to yesterday. Metolazone per cardiology.
Left lower extremity neuropathy - Possible lumbar radiculopathy. Patient's daughter states he is scheduled for a lumbar MRI on Friday, August 08.
Lyrica resumed at low-dose of 25 mg once daily.
CAD -stable.
Paroxysmal atrial fibrillation -continue amiodarone, Eliquis.
Essential hypertension -stable.
CKD 3b -labs pending for today.
Chronic anemia -hemoglobin at baseline.
Chronic leukocytosis -unclear etiology. Afebrile. No evidence of infection. Monitor for now.
Hypothyroidism -levothyroxine.
DM2 without hyperglycemia -glucose 127 this morning, 289 last night. Was on Jardiance prior to admission. Glimepiride discontinued during recent hospitalization.
Currently on Farxiga 5 mg daily, aspart low resistance corrective scale. Will add aspart with meals.
Last hemoglobin A1c 5.9% but he does have chronic anemia, may not be reliable.
COPD without exacerbation -on chronic azithromycin, prednisone.
Medtronic permanent pacemaker
ACS s/p TAVR -with moderate bioprosthetic stenosis.
Chronic pancreatic insufficiency -continue enzyme replacement.
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 He has never had arthrocentesis that we know of. Colchicine dose reduced to 0.3 mg every other day.
Dementia unknown type -on Aricept.
Multiple skin tears -wound care consult.
DNR
Dispo -eventual discharge back to [facility] for rehab.
Anticipated Discharge: 24 - 48 hours
Subjective/Interval History
-
Date of Service: August 05, 2025
Patient seen and examined. Some shortness of breath last night. Resolved.
Objective Data
-
Labs:
Laboratory Results
08/05/25 08/05/25
08:17 12:12
Sodium Cancelled Pending
Potassium Cancelled Pending
Chloride Cancelled Pending
Carbon Dioxide Cancelled Pending
BUN Cancelled Pending
Creatinine Cancelled Pending
Glucose Cancelled Pending
Calcium Cancelled Pending
Vital Signs:
Vital Signs
Temp Pulse Resp BP Pulse Ox
98.2 F 78 18 124/50 97
08/05/25 11:16 08/05/25 11:16 08/05/25 11:16 08/05/25 11:16 08/05/25 11:16
I&O
08/04/25 08/05/25 08/06/25
06:59 06:59 06:59
Intake Total 480 / 480 2280 / 2280
Output Total 1500 / 1500 1100 / 1100
Balance -1020 / -1020 1180 / 1180
Review of Systems
-
History Source: Patient
All other systems: Reviewed and negative
[2025-08-05] MEDS: NOVOLOG FLEXPEN-LOW RESISTANCE 1 UNITS SC ×2 (12:23→17:22)
[2025-08-05 12:46] LABS: Blood Urea Nitrogen 61 mg/dl (9-20); Calcium 8.0 mg/dl (8.4-10.2); Carbon Dioxide 30 mmol/L (22-30); Chloride 104 mmol/L (98-107); Estimated Creatinine Clearance 36 ml/min; Glucose 148 mg/dl (70-99); Potassium 4.6 mmol/L (3.5-5.1); Sodium 137 mmol/L (135-145); eGFR 49.25
[2025-08-05] MEDS: KCL 20 MEQ PO ×2 (13:24→20:57)
[2025-08-05] MEDS: LASIX 80 MG IV ×2 (13:24→20:59)
--- NOTE | 2025-08-05 15:53 | CM ---
[facility] accepted for patient to return at d/c. Spoke w/ Veda/silvana, aware patient may d/c over the weekend
CM called [phone]-ask blue to obtain auth. Spoke w/ Dviya. Jayshree approved beginning tomorrow, 08/06, next review date is 08/10
Reference number [id number]
Updated daughter, Yolanda, over the phone about possible plan for weekend. Yolanda stated a w/c van will be okay if patient does not qualify for an ambulance
Patient will need COVID test prior to d/c
IMM verbally reviewed, copy provided, copy on chart
[facility]
Report: [phone]

Plan: [facility] if discharge over weekend
[2025-08-05 16:39] LABS: Glucose - Point of Care 194 mg/dl (70-99)
[2025-08-05] MEDS: LASIX IV (17:08)
[2025-08-05] MEDS: NOVOLOG FLEXPEN 4 UNITS SC (17:22)
[2025-08-05] MEDS: PROTONIX 40 MG PO (17:31)
[2025-08-05] MEDS: ZITHROMAX 250 MG PO (17:31)
[2025-08-05] MEDS: MAGNESIUM OXIDE 400 MG PO (17:31)
[2025-08-05] MEDS: VITAMIN B-12 1000 MCG PO (17:31)
[2025-08-05] MEDS: VITAMIN D3 (cholecalciferol) 50 MCG PO (17:31)
[2025-08-05 19:11] VITALS: BP 119/49
[2025-08-05] MEDS: ZOLOFT 50 MG PO (21:02)
[2025-08-05] MEDS: LIPITOR 40 MG PO (21:02)
[2025-08-05] MEDS: ARICEPT 10 MG PO (21:03)
[2025-08-05] MEDS: CARDURA 3 MG PO (21:06)
[2025-08-05 21:10] LABS: Glucose - Point of Care 234 mg/dl (70-99)
[2025-08-05 23:54] VITALS: BP 120/43
[2025-08-06 03:53] VITALS: BP 116/46
[2025-08-06] MEDS: SYNTHROID 175 MCG PO (05:03)
[2025-08-06 06:00] VITALS: BMI 25.0
[2025-08-06 07:21] VITALS: BP 131/44
[2025-08-06] MEDS: DUONEB INH (08:07)
[2025-08-06] MEDS: PULMICORT INH (08:07)
[2025-08-06 08:08] LABS: Glucose - Point of Care 149 mg/dl (70-99)
[2025-08-06 08:09] LABS: Blood Urea Nitrogen 62 mg/dl (9-20); Calcium 8.2 mg/dl (8.4-10.2); Carbon Dioxide 28 mmol/L (22-30); Chloride 106 mmol/L (98-107); Estimated Creatinine Clearance 39 ml/min; Glucose 92 mg/dl (70-99); Potassium 4.2 mmol/L (3.5-5.1); Sodium 138 mmol/L (135-145); eGFR 53.84
--- NOTE | 2025-08-06 08:14 | W.PN.HOSP.TC ---
Addendum entered and electronically signed by Abel Walker DO 08/06/25 13:08:
Cardiology okay with discharge today. Discussed with nurse and case management.
Updated patient's daughter on the phone. All questions answered.
Original Note:
Today's Communication/Plan
-
Continue current care
Assessment / Plan
Assessment / Plan
Gen-AAOx3, NAD
HEENT-NC, AT, anicteric, clear oral mm
Neck-supple
CV-reg, no M, +S1/S2
Lungs-mild end expiratory wheezing bilaterally
Abd-soft, NT, ND
Ext-negative edema
Musculoskeletal-no cyanosis, clubbing
Skin-warm and dry
Neuro-grossly non-focal
Psych-calm, cooperative
Acute encephalopathy -presumably due to medications, Lyrica and Vicodin, as well as hypoxia. Encephalopathy resolved. Minimize opiates.
Acute on chronic respiratory failure -due to acute pulmonary edema due to acute on chronic heart failure exacerbation. Possible acute bronchitis given coughing and mild wheezing. Patient cannot cough up any phlegm.
Chest x-ray shows pulmonary edema. Required BiPAP in the emergency room, now transitioned to nasal cannula.
Oxygenation improved, 97% on room air.
Continue Mucinex, add Acapella, incentive spirometer.
Acute on chronic heart failure with preserved EF -weight is up compared to recent discharge. Continue IV Lasix. BNP is elevated. Cardiology following. Weight 72.2 kg today, down since admission. Metolazone per cardiology.
Left lower extremity neuropathy - Possible lumbar radiculopathy. Patient's daughter states he is scheduled for a lumbar MRI on Friday, August 08.
Lyrica resumed at low-dose of 25 mg once daily.
CAD -stable.
Paroxysmal atrial fibrillation -continue amiodarone, Eliquis.
Essential hypertension -stable.
CKD 3b -creatinine improved from 1.6-1.3.
Chronic anemia -hemoglobin at baseline.
Chronic leukocytosis -unclear etiology. Afebrile. No evidence of infection. Monitor for now.
Hypothyroidism -levothyroxine.
DM2 without hyperglycemia -glucose 92 this morning, 234 last night. Was on Jardiance prior to admission. Glimepiride discontinued during recent hospitalization.
Currently on Farxiga 5 mg daily, aspart low resistance corrective scale, 4 units aspart with meals.
Last hemoglobin A1c 5.9% but he does have chronic anemia, may not be reliable.
COPD without exacerbation -on chronic azithromycin, prednisone.
Medtronic permanent pacemaker
ACS s/p TAVR -with moderate bioprosthetic stenosis.
Chronic pancreatic insufficiency -continue enzyme replacement.
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 He has never had arthrocentesis that we know of. Colchicine dose reduced to 0.3 mg every other day.
Dementia unknown type -on Aricept.
Multiple skin tears -wound care consult.
DNR
Dispo -eventual discharge back to [facility] for rehab.
Anticipated Discharge: 24 - 48 hours
Subjective/Interval History
-
Date of Service: August 06, 2025
Patient seen and examined. No complaints.
Objective Data
-
Labs:
Laboratory Results
08/06/25
07:16
Sodium 138
Potassium 4.2
Chloride 106
Carbon Dioxide 28
BUN 62 H
Creatinine 1.3
Glucose 92
Calcium 8.2 L
Vital Signs:
Vital Signs
Temp Pulse Resp BP Pulse Ox
98.3 F 74 18 116/46 93
08/06/25 03:53 08/06/25 03:53 08/06/25 03:53 08/06/25 03:53 08/06/25 03:53
I&O
08/05/25 08/06/25 08/07/25
06:59 06:59 06:59
Intake Total 2280 / 2280 480 / 480
Output Total 1100 / 1100 900 / 900 1225 / 1225
Balance 1180 / 1180 -420 / -420 -1225 / -1225
Review of Systems
-
History Source: Patient
All other systems: Reviewed and negative
[2025-08-06] MEDS: NOVOLOG FLEXPEN-LOW RESISTANCE SC (08:54)
[2025-08-06] MEDS: NOVOLOG FLEXPEN 4 UNITS SC ×2 (09:01→12:54)
[2025-08-06] MEDS: COLCHICINE 0.3 MG PO (09:02)
[2025-08-06] MEDS: FARXIGA 10 MG PO (09:03)
[2025-08-06] MEDS: LASIX 80 MG IV ×2 (09:03→15:24)
[2025-08-06] MEDS: ELIQUIS 2.5 MG PO (09:03)
[2025-08-06] MEDS: KCL 20 MEQ PO (09:03)
[2025-08-06] MEDS: DELTASONE 10 MG PO (09:03)
[2025-08-06] MEDS: TOPROL XL 25 MG PO (09:04)
[2025-08-06] MEDS: PACERONE 200 MG PO (09:04)
[2025-08-06] MEDS: LYRICA 25 MG PO (09:04)
[2025-08-06] MEDS: ZENPEP DELAYED RELEASE CAPSULE 2 CAPSULE PO ×2 (09:04→12:53)
[2025-08-06] MEDS: MUCINEX 600 MG PO (09:04)
[2025-08-06] MEDS: FLUSH (NSS) 2 FLUSH IV (09:05)
[2025-08-06] MEDS: DESENEX/MITRAZOL/ZEASORB 1 APPLIC TOPICAL (09:05)
[2025-08-06] MEDS: TYLENOL 650 MG PO ×2 (09:10→15:25)
[2025-08-06 11:01] VITALS: BP 100/43
[2025-08-06] MEDS: DUONEB 3 ML INH (11:10)
--- NOTE | 2025-08-06 11:12 | W.PN.CARDCBS ---
Addendum entered and electronically signed by Partha Oconnell MD 08/06/25 12:31:
Patient seen and examined
Agree with BHAVNA Hendricks's note and assessment
Agree with BHAVNA Hendricks's plan
Feels better
����Physical Exam
���������������������General:��no apparent distress, not acutely ill
���������������������������Neck:��supple. no meningeal signs. normal psoterior pharynx������������������������
���������������������������Heart:��s1/s2 regular rate and rhythm, no murmur. equal radial pulses.
��������������������������Lungs: ��no acute respiratory distress. clear bilaterally
����������������������Abdomen:�normal bowel sounds. not tender. no CVAT
��������������������������Neuro:��alert and oriented. no focal neurological deficits
������������������������������Skin: ��no rash
�����������������������Psychiatric:�well kept. interactive and cooperative
�����������������������Extremities:��no edema. no calf tenderness. negative homans. good distal pulses
��
����Physical Exam
���������������������General:��no apparent distress, not acutely ill
���������������������������Neck:��supple. no meningeal signs. normal psoterior pharynx
������������������������
���������������������������Heart:��s1/s2 regular rate and rhythm, no murmur. equal radial pulses.
��������������������������Lungs: ��no acute respiratory distress. clear bilaterally
����������������������Abdomen:�normal bowel sounds. not tender. no CVAT
��������������������������Neuro:��alert and oriented. no focal neurological deficits
������������������������������Skin: ��no rash
�����������������������Psychiatric:�well kept. interactive and cooperative
�����������������������Extremities:��no edema. no calf tenderness. negative homans. good distal pulses
PCP: Dr. Dexter Meng
Primary Molding Utility Worker: Dr. Deana Palomino
Impression:
Presented 08/02/2025 with lethargy, weight gain and shortness of breath
Acute on chronic HFpEF, proBNP 3690
Lethargy
FAHEEM on CKD 3a
Recent admission for acute HF, presented with edema/anasarca 07/15/25
Recent gout flare
Paroxysmal atrial fibrillation
Chronic Eliquis anticoagulation
CAD
s/p BLADIMIR to mid LAD 01/13/2020
s/p BLADIMIR to prox LAD 06/21/2024s/p TAVR 26 mm Fleming Valve 05/11/2020
MS/MR, mild to mod by echo 2023
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
COPD
Chronic prednisone
Carotid stenosis
Neuropathic pain left lower extremity
gout
Hypertension
Hyperlipidemia
Hypothyroidism
Type 2 DM
Renal insufficiency
Frequent PVCs, NSVT
DNR code status
Echo 06/18/2024: EF 50 to 55%, stage II diastolic dysfunction, mild to moderate MS with peak/mean gradient 16/8 mmHg, moderate MR, severely dilated left atrium, status post number 26 mm TAVR with peak/mean gradients of 25/17 mmHg, trace AR, trace TR,
PAP 30 mmHg
ECHO 04/05/2025: EF 60 to 65%, no regional wall motion abnormalities noted, mild concentric LVH, moderate to severe MS with peak/mean gradients 26/13 mmHg, Fleming ROSARIO #26 TAVR with peak/mean gradients 37/22 mmHg, trace TR, PAP 50 to 55 mmHg
Plan:
-Presented 08/02/2025 with lethargy, weight gain and shortness of breath and found to have acute on chronic heart failure, proBNP 3690
-He reports breathing is significantly improved and he continues with good urine output on IV Lasix 80 mg twice daily. Creatinine continues to improve at 1.3.
-Patient was taking torsemide 30 mg PO BID plus metolazone 5 mg MWF prior to admission after diuretic dosing was changed/escalated due to symptoms. metolazone is currently on hold.
-Would consider discharging back on Lasix p.o. 80 mg twice daily with metolazone MWF as patient had a readmission despite changing Lasix to torsemide
-Check BMP and proBNP in 1 week
-Echo 04/05/2025 EF was 60 to 65% with moderate to severe MS with peak mean 26/13 mmHg, TAVR with peak/mean 37/22 mmHg. No need to repeat this admission. Patient is a DNR and has degree of dementia, not clear if he has ever been evaluated for TMVR
candidacy.
-Continue Toprol, Farxiga. Patient is not chronically on spironolactone due to CKD
-currently appears AV paced on review of telemetry. Continue amiodarone 200 mg daily, Eliquis 2.5 mg twice daily
-Patient has indicated he would be interested in watchman, but not sure if he is a candidate for this given underlying dementia.
-Presented with lethargy and found to be encephalopathy presumed to be from Lyrica and Vicodin which he was getting as outpatient. Symptoms have resolved. Primary service has resumed low-dose Lyrica. Scheduled for outpatient MRI 08/08 to assess for
lumbar radiculopathy.
-will arrange OP cardiac follow up
-for [facility] upon DC. I have no objection to discharge from a cardiovascular respective if there is no other medical issues per the primary team
��
�
�
Original Note:
Today's Communication / Plan
-
continue IV lasix while admitted
for DC would plan to send on po lasix 80mg BID with metolazone MWF
BMP/proBNP in 1 week
continue toprol, amiodarone, eliquis, farxiga
will arrange OP cardiac follow up
Impression / Plan
-
.
PCP: Dr. Dexter Meng
Primary Molding Utility Worker: Dr. Deana Palomino
Impression:
Presented 08/02/2025 with lethargy, weight gain and shortness of breath
Acute on chronic HFpEF, proBNP 3690
Lethargy
FAHEEM on CKD 3a
Recent admission for acute HF, presented with edema/anasarca 07/15/25
Recent gout flare
Paroxysmal atrial fibrillation
Chronic Eliquis anticoagulation
CAD
s/p BLADIMIR to mid LAD 01/13/2020
s/p BLADIMIR to prox LAD 06/21/2024
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
MS/MR, mild to mod by echo 2023
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
COPD
Chronic prednisone
Carotid stenosis
Neuropathic pain left lower extremity
gout
Hypertension
Hyperlipidemia
Hypothyroidism
Type 2 DM
Renal insufficiency
Frequent PVCs, NSVT
DNR code status
Echo 06/18/2024: EF 50 to 55%, stage II diastolic dysfunction, mild to moderate MS with peak/mean gradient 16/8 mmHg, moderate MR, severely dilated left atrium, status post number 26 mm TAVR with peak/mean gradients of 25/17 mmHg, trace AR, trace TR,
PAP 30 mmHg
ECHO 04/05/2025: EF 60 to 65%, no regional wall motion abnormalities noted, mild concentric LVH, moderate to severe MS with peak/mean gradients 26/13 mmHg, Fleming ROSARIO #26 TAVR with peak/mean gradients 37/22 mmHg, trace TR, PAP 50 to 55 mmHg
Plan:
-Presented 08/02/2025 with lethargy, weight gain and shortness of breath and found to have acute on chronic heart failure, proBNP 3690
-He reports breathing is significantly improved and he continues with good urine output on IV Lasix 80 mg twice daily. Creatinine continues to improve at 1.3.
-Patient was taking torsemide 30 mg PO BID plus metolazone 5 mg MWF prior to admission after diuretic dosing was changed/escalated due to symptoms. metolazone is currently on hold.
-Would consider discharging back on Lasix p.o. 80 mg twice daily with metolazone MWF as patient had a readmission despite changing Lasix to torsemide
-Check BMP and proBNP in 1 week
-Echo 04/05/2025 EF was 60 to 65% with moderate to severe MS with peak mean 26/13 mmHg, TAVR with peak/mean 37/22 mmHg. No need to repeat this admission. Patient is a DNR and has degree of dementia, not clear if he has ever been evaluated for TMVR
candidacy.
-Continue Toprol, Farxiga. Patient is not chronically on spironolactone due to CKD
-currently appears AV paced on review of telemetry. Continue amiodarone 200 mg daily, Eliquis 2.5 mg twice daily
-Patient has indicated he would be interested in watchman, but not sure if he is a candidate for this given underlying dementia.
-Presented with lethargy and found to be encephalopathy presumed to be from Lyrica and Vicodin which he was getting as outpatient. Symptoms have resolved. Primary service has resumed low-dose Lyrica. Scheduled for outpatient MRI 08/08 to assess for
lumbar radiculopathy.
-will arrange OP cardiac follow up
-for [facility] upon DC
HPI 08/02/2025:
history of chronic diastolic CHF, PAF, CAD, aortic stenosis status post TAVR, status post pacer, renal insufficiency, hypertension, diabetes, COPD. He was admitted to [place] in July 2025 with CHF at the presenting with edema anasarca. His
discharge weight was 170 pounds and outpatient torsemide was increased from 20 mg twice daily to 30 mg twice daily as well as metolazone 5 mg Friday and Friday with creatinine of 1.5 on discharge. Lyrica was added for lower extremity
neuropathy was discharged to [facility].
He presents with lethargy and increasing shortness of breath. Of note Lyrica had been increased recently as well. Vicodin for leg pain. His weight at [facility] was 173.74 pounds per daughter. He is admitted now with increasing lethargy and
acute diastolic CHF. Will treat with IV Lasix. Will follow renal insufficiency with creatinine of 1.6 at present. Discussed with and daughter at bedside.
Progress Note - Molding Utility Worker
Subjective
Date of Service: August 06, 2025
Patient reports feeling better. States significant urine output with IV Lasix and breathing improved from admission
Objective
Labs:
08/03/25 04:59
08/06/25 07:16
Labs
Hgb 9.4 g/dL (13.0-18.0) L 08/03/25 04:59
Hct 30.1 % (39.0-52.0) L 08/03/25 04:59
Plt Count 180 10^3/uL (130-400) 08/03/25 04:59
Sodium 138 mmol/L (135-145) 08/06/25 07:16
Potassium 4.2 mmol/L (3.5-5.1) 08/06/25 07:16
BUN 62 mg/dl (9-20) H 08/06/25 07:16
Creatinine 1.3 mg/dL (0.7-1.3) 08/06/25 07:16
Glucose 92 mg/dl (70-99) 08/06/25 07:16
Vital Signs and I&O:
Vital Signs
Temp Pulse Resp BP Pulse Ox
98.4 F 82 18 131/44 93
08/06/25 07:21 08/06/25 09:03 08/06/25 07:21 08/06/25 09:03 08/06/25 07:21
Vital Signs
Temp Pulse Resp BP Pulse Ox
98.4 F 82 18 131/44 93
08/06/25 07:21 08/06/25 09:03 08/06/25 07:21 08/06/25 09:03 08/06/25 07:21
Intake & Output
08/04/25 08/05/25 08/06/25 08/07/25
07:59 07:59 07:59 07:59
Intake Total 480 / 480 2280 / 2280 480 / 480
Output Total 1500 / 1500 1100 / 1100 2125 / 2125
Balance -1020 / -1020 1180 / 1180 -1645 / -1645
Physical Exam
Physical Exam
GEN: No distress, awake, alert, oriented x3
HEENT: supple, anicteric, mmm, EOMI
LUNGS: Few scattered crackles, no wheezes
CV: Reg, S1/S2, 2/6 murmur
ABD: soft, BS+, NT/ND
EXT: No cyanosis, clubbing. Trace edema of bilateral lower extremity
NEURO: Gross non-focal
SKIN: Warm, pink, dry. No rash. Scattered bruising and bandages to upper extremity bilaterally
[2025-08-06 11:19] VITALS: BMI 25.0
[2025-08-06 12:38] LABS: Glucose - Point of Care 150 mg/dl (70-99)
[2025-08-06] MEDS: NOVOLOG FLEXPEN-LOW RESISTANCE 1 UNITS SC (12:53)
--- NOTE | 2025-08-06 13:03 | W.DS.TRANS ---
DC Summary - Plant Electrical Engineer
-
Discharge Instructions:
Sleep Apnea Risk Intermediate
Discharge Diagnosis/Procedures Acute heart failure exacerbation, acute
encephalopathy, lumbar radiculopathy
Diet 2 Gram Sodium,Restrict fluids to 48 oz,Diabetic,
Carb Controlled
Activity With assistance
Driving Restrictions No driving
Bathing Restrictions None
Blood Work BMP in 1 week
Specialty Instructions Weigh Daily
Instructions: *DCA Heart Failure Instructions
Stand-Alone Forms:
Changes to Home Medications: Yes
Discharge Medications:
DC Medications w/original date entered in [employer]
cyanocobalamin (vitamin B-12) 1,000 mcg tablet 1,000 mcg PO QPM Supplement 01/13/20
levothyroxine 175 mcg tablet 175 mcg PO DAILY Thyroid 01/13/20
sertraline 50 mg tablet 50 mg PO HS Mental Health/Anxiety 01/13/20
pantoprazole 40 mg tablet,delayed release 40 mg PO QPM Gastrointestinal issue 05/15/20
budesonide 0.5 mg/2 mL suspension for nebulization 0.5 mg (2 mL) inhalation R BID 30 days ##2 05/07/21
magnesium oxide 400 mg PO QPM Supplement 03/15/22
azithromycin 250 mg tablet 250 mg PO QPM Infection 05/25/24
donepezil 10 mg tablet 10 mg PO HS Mental Health/Anxiety 05/25/24
ipratropium 0.5 mg-albuterol 3 mg (2.5 mg base)/3 mL nebulization soln 3 ml inhalation R TID Lung/Breathing Issues 05/25/24
prednisone 10 mg tablet 10 mg PO DAILY Anti-Inflammatory 05/25/24
vitamins A,C,Y-unah-fqaqyn 2,148 mcg-113 mg-45 mg-17.4 mg tablet (PreserVision AREDS) 1 tab PO BID Supplement 05/25/24
cholecalciferol (vitamin D3) 25 mcg (1,000 unit) tablet 50 mcg PO QPM Supplement 06/17/24
apixaban 2.5 mg tablet (Eliquis) 2.5 mg PO BID 30 days #60 tabs 06/22/24
doxazosin 1 mg tablet 3 mg (3 x 1 mg) PO HS 30 days #90 tabs 06/22/24
amiodarone 200 mg tablet 200 mg PO DAILY AFIB 04/05/25
atorvastatin 40 mg tablet (Lipitor) 40 mg PO HS High Cholesterol 04/05/25
metoprolol succinate 25 mg tablet,extended release 24 hr 25 mg PO BID Blood Pressure 04/05/25
xinfcc-cffxypkp-wlhbdpo 24,000-76,000-120,000 unit capsule,delayed rel (Creon) 2 cap PO MEALS Gastrointestinal Issue 07/15/25
acetaminophen 325 mg tablet 650 mg (2 x 325 mg) PO Q6HPRN PRN mild pain/ fever>100.5F #0 tabs 07/22/25
colchicine 0.6 mg tablet 0.6 mg PO DAILY #0 tabs 07/22/25
potassium chloride 20 mEq tablet,extended release(part/cryst) 20 meq PO BID #0 tabs 07/22/25
bisacodyl 10 mg rectal suppository (Dulcolax (bisacodyl)) 10 mg TX DAILY PRN no bm x 8h post MOM 08/02/25
guaifenesin 600 mg tablet, extended release 12 hr 600 mg PO BID Cough 08/02/25
insulin aspart U-100 100 unit/mL (3 mL) subcutaneous pen (Novolog FlexPen U-100 Insulin aspart) 0 - 6 sliding scale dose SC AC Diabetes 08/02/25
mgkrgv-euqbcxpe-bskbzoo 24,000-76,000-120,000 unit capsule,delayed rel (Creon) 1 cap PO TIDPRN PRN SNACKS 08/02/25
metolazone 5 mg tablet 5 mg PO MOWEFR@0730 Fluid Retention/Swelling 08/02/25
zinc oxide 40 % topical ointment 1 applic topical BID b/l groin and upper thigh 08/02/25
dapagliflozin propanediol 5 mg tablet 10 mg (2 x 5 mg) PO DAILY #0 tabs 08/06/25
furosemide 80 mg tablet 80 mg PO BID #60 tabs 08/06/25
pregabalin 25 mg capsule 25 mg PO DAILY #0 caps 08/06/25
Home Medication Changes
Torsemide stopped.
Pending Results: No
[2025-08-06 13:30] VITALS: BP 115/51
--- NOTE | 2025-08-06 14:35 | CM ---
Addendum entered by Chanelle Apodaca 08/06/25 16:05:
Ambulance pickle maker scheduled for 1600; facility notified
Original Note:
Plan: Discharge to [facility] today via ambulance
Covid-19 test result is pending
Report: [phone]
[2025-08-06 14:44] LABS: COVID-19 Antigen Negative (Negative)
[2025-08-06 15:23] VITALS: BP 112/50
== END 2025-08-06 16:59 | DRG 291 ==
LOC: 4 EAST ACU 14:24
PROVIDERS: Physician Assistant; Physician Assistant Medical; ADMITTING PHYSICIAN Internal Medicine; ATTENDING PHYSICIAN Hospitalist; CONSULT PHYSICIAN Internal Medicine Cardiovascular Disease; EMERGENCY PHYSICIAN Emergency Medicine; FAMILY PHYSICIAN Family Medicine
PROC: 5A09357 Assistance with Respiratory Ventilation, Less than 24 Consecutive Hours, Continuous Positive Airway Pressure (ICD-10-PCS; 2025-08-02)
DX: I13.0 Hypertensive heart and chronic kidney disease with heart failure and stage 1 through stage 4 chronic kidney disease, or unspecified chronic kidney disease (principal); G92.8 Other toxic encephalopathy; I50.33 Acute on chronic diastolic (congestive) heart failure; J96.21 Acute and chronic respiratory failure with hypoxia; J96.22 Acute and chronic respiratory failure with hypercapnia; N17.9 Acute kidney failure, unspecified; J84.9 Interstitial pulmonary disease, unspecified; E87.29 Other acidosis; T42.6X5A Adverse effect of other antiepileptic and sedative-hypnotic drugs, initial encounter; N18.31 Chronic kidney disease, stage 3a; M54.16 Radiculopathy, lumbar region; I25.10 Atherosclerotic heart disease of native coronary artery without angina pectoris; I48.0 Paroxysmal atrial fibrillation; D63.1 Anemia in chronic kidney disease; E03.9 Hypothyroidism, unspecified; K86.89 Other specified diseases of pancreas; F03.90 Unspecified dementia, unspecified severity, without behavioral disturbance, psychotic disturbance, mood disturbance, and anxiety; E11.22 Type 2 diabetes mellitus with diabetic chronic kidney disease; E11.41 Type 2 diabetes mellitus with diabetic mononeuropathy; E87.5 Hyperkalemia; J44.9 Chronic obstructive pulmonary disease, unspecified; K86.81 Exocrine pancreatic insufficiency; M10.9 Gout, unspecified; D72.829 Elevated white blood cell count, unspecified; M13.80 Other specified arthritis, unspecified site; Z66 Do not resuscitate; E78.00 Pure hypercholesterolemia, unspecified; L89.312 Pressure ulcer of right buttock, stage 2; Z11.52 Encounter for screening for COVID-19; Z79.899 Other long term (current) drug therapy; Z79.01 Long term (current) use of anticoagulants; Z79.51 Long term (current) use of inhaled steroids; Z79.82 Long term (current) use of aspirin; Z79.890 Hormone replacement therapy; Z87.891 Personal history of nicotine dependence; Z95.0 Presence of cardiac pacemaker; Z95.2 Presence of prosthetic heart valve; Z95.5 Presence of coronary angioplasty implant and graft
CPT/HCPCS: 70450; 71045; 80048; 80053; 81003; 82805; 82962; 83735; 83880; 85025; 85027; 87070; 87324; 87449; 87502; 87811; 92526; 92610; 93005; 94640; 94660; 96374; 97163; 97167; 97530; 97535; 99285

== ENCOUNTER → 2025-08-08 13:13 | Outpatient (REF) | payer OTHER, SELFPAY | LOC: MRI 13:13 | PROVIDERS: ATTENDING PHYSICIAN Specialist; FAMILY PHYSICIAN Internal Medicine | DX: M54.16 Radiculopathy, lumbar region (principal) | CPT/HCPCS: 72148; 76014; 76015 ==

== ENCOUNTER 2025-10-05 03:19 | Inpatient (IN) | payer OTHER, SELFPAY ==
[2025-10-04 22:15] VITALS: BMI 21.5
[2025-10-04 22:21] VITALS: BP 117/46
[2025-10-04 22:45] VITALS: BP 106/53
[2025-10-04 23:00] LABS: ALT (SGPT) 13 U/L (0-50); AST (SGOT) 12 U/L (17-59); Albumin 2.4 g/dl (3.5-5.0); Alkaline Phosphatase 99 U/L (38-126); Blood Urea Nitrogen 101 mg/dl (9-20); Calcium 7.6 mg/dl (8.4-10.2); Carbon Dioxide 19 mmol/L (22-30); Chloride 105 mmol/L (98-107); Estimated Creatinine Clearance 17 ml/min; Glucose 103 mg/dl (70-99); Potassium 4.2 mmol/L (3.5-5.1); Sodium 129 mmol/L (135-145); Total Protein 4.9 g/dl (6.3-8.2); eGFR 19.74
[2025-10-04 23:01] LABS: Hematocrit 24.3 % (39.0-52.0); Hemoglobin 7.5 g/dL (13.0-18.0); Mean Corp Hgb Conc. 30.9 g/dL (33.0-37.0); Mean Corpuscular Volume 91.0 fL (80.0-94.0); Nucleated Red Blood Cells % 0 % (-); Platelet Count 196 10^3/uL (130-400); Red Cell Dist. Width 17.2 % (11.5-14.5)
[2025-10-04 23:05] LABS: Anisocytosis 2+; Microcytosis 2+; Normal RBC Morphology No
[2025-10-04 23:06] LABS: Burr Cells 2+; Hypochromasia 1+; Ovalocytes 1+
[2025-10-04 23:07] LABS: Hypersegmented Neutrophil 3+
[2025-10-04 23:30] VITALS: BP 106/46
[2025-10-05] VITALS (26 sets, daily range): BP systolic 88–116; BP diastolic 35–54; BMI 24.0
[2025-10-05 00:23] LABS: Lipase < 10 U/L (23-300)
--- NOTE | 2025-10-05 00:33 | ED.GENMED ---
History of Present Illness
<Pooja Acosta PA-C - Last Filed: 10/05/25 06:03>
General
Chief Complaint: Weakness
Source: patient
Exam Limitations: none
Time Seen by Provider: 10/04/25 23:44
Nursing documentation reviewed up to this point in time: agreed with
History of Present Illness
History of Present Illness:
85 y/o male with past medical history of CHF, A-fib on Eliquis, COPD, chronic pancreatitis, presents to the ER today with concerns of generalized weakness and chronic back pain. He is present with daughter who reports that he has been having
recurrent falls and they have been debating taking him off his Eliquis because of this. Reports that he fell in August injuring multiple compression fractures but he most recently fell September 17 and he reports that he fell straight back without
losing consciousness. He was reports that they could not get him up and EMS was called and he refused hospital visit. He lives in [facility] independent living with his . He currently does not live in rehab. PT and OT have signed off on his
case. Daughter reports that he has been sitting in a chair and not moving. Patient's reported to daughter that when she tried to get him up from the chair and try to get him to eat food, he reports that 'I could not stand up, my legs were
Jell-O. 'Daughter has been giving him multiple doses of oxycodone to help with the pain but she reports that she feels that multiple doses of narcotic pain medication makes him eat less. She reports that she has to force him to eat small amounts
of food. Patient denies chest pain, shortness of breath, abdominal pain. He does note some discomfort in his left lower extremity, he does have chronic weeping. He denies any burning with urination. He reports that at baseline he does not know
when he has used the bathroom and he has been incontinent for multiple months. EMS was called by daughter as pressure was reportedly in the 70s there but is 117/46 upon arrival. Rectal temperature reveals low-grade fever 100.3.
Past History
<BHAVNA Vega Last Filed: 10/05/25 06:03>
Past History
ED Past Medical History: CAD, CHF, COPD, HTN, Hypercholesterolemia, NIDDM, Valvular disease, Hypothyroidism, Psychiatric (Anxiety, depression) and Other (PNA, Cirrhosis of the liver)
ED Past Surgical History: Cardiac (Pacemaker, TAVR, Stent X 1)
Social History
Tobacco: Former smoker
Alcohol: Former
Personal:
Living: with family
Employment: Retired
Family History
Family History: Other (Noncontributory)
Review of Systems
<BHAVNA Vega Last Filed: 10/05/25 06:03>
Review of Systems
All Other Systems: ROS reviewed and negative except as documented in HPI and ROS
Phy Exam
<BHAVNA Vega Last Filed: 10/05/25 06:03>
Physical Exam
Physical Exam:
General: Patient is chronically ill appearing, non-toxic
Skin: Warm and dry, no rashes or lesions
Head: Normocephalic, atraumatic
Eyes: Sclera non-icteric. EOMs intact.
Cardiac: Regular rate and rhythm, no murmurs
Peripheral Vascular: B/l lower extremity swelling and edema, weeping, no open wounds, 2+ DP pulses bilaterally
Pulm: Normal respiratory effort, no wheezes, rales, or rhonchi
Abdomen: No abdominal tenderness to palpation. Brown heme positive stool within rectal vault
Musculoskeletal: Midline thoracic and lumbar tenderness to palpation
Neuro: CN II-XII intact, no focal neurologic deficits.
Psychiatric: Appropriate mood and affect.
Course
<BHAVNA Vega Last Filed: 10/05/25 06:03>
Orders/Labs/Results
Orders:
Orders
11/04/25 22:32
Alcohol Urgent
Complete Blood Count/With Diff Urgent
Comprehensive Metabolic Panel Urgent
Creatine Phosphokinase Urgent
Lipase Urgent
Comment: ADD ON
10/04/25 23:47
Add On- LAB Urgent
Tests Added?: cpk, lipase
10/04/25 23:48
Add On- LAB Urgent
Tests Added?: alcohol level
10/05/25 00:08
Electrocardiogram (*1) Urgent
Reason for Study: Heart Failure, Left
EKG- Treatment ONCE
10/05/25 00:09
CT Head W/o Iv Contrast Urgent
Comment:
Reason For Exam: weakness, altered mental status
10/05/25 00:24
CT Chest/abd/pel Wo Iv Cont Urgent
Comment:
Reason For Exam: sepsis, back pain, intermittent sob
10/05/25 00:28
Fentanyl Citrate/Pf [Sublimaze] 25 mcg IV NOW STA
10/05/25 00:34
COVID-19 Antigen Urgent
Source: Nasal Swab
NT-proBNP Urgent
Troponin I Urgent
Urinalysis Reflex To Culture Urgent
Date Specimen was Collected: 10/05/25
Time Specimen was Collected: 00:32
Urine Microscopic Reflex Cult Urgent
Influenza A+B Rapid Molecular Urgent
JULES Source: Nasal Swab
Specimen Description:
Urine Culture Urgent
JULES Source: U
Specimen Description:
Date Specimen was Collected: 10/05/25
Time Specimen was Collected: 00:32
10/05/25 01:01
0.9% Sodium Chloride 500 ml [Nss] 500 ml IV BOLUS
10/05/25 01:11
Acetaminophen [Tylenol] 1,000 mg PO NOW STA
10/05/25 01:19
Piperacillin/Tazo 4.5 Gram [Zosyn] 4.5 gram in 100 ml IV NOW
10/05/25 01:31
Lactic Acid Urgent
Blood Culture Q30M
JULES Source: Blood/Venous
Specimen Description:
10/05/25 02:24
Blood Culture Q30M
JULES Source: Blood/Venous
Specimen Description:
10/05/25 02:32
Vancomycin [Vancocin] 1,500 mg 0.9% Sodium Chloride 500 ml [Nss] 500 ml IV NOW
10/05/25 03:00
Admit/Transfer Patient As Directed
Co-Sign Provider:
Level of Care: Inpatient admission
Assign to:: IMU- Intermediate Care
Physician / Group: Sb
Diagnosis: FAHEEM, Anemia, Osteomyelitis / Discitis
Reason for Hospitalization: FAHEEM, Anemia, Osteomyelitis / Discitis
Expected length of stay greater than two midnights?: Yes
ELOS- Estimated Length of Stay in days: 4
I certify the patient meets the requirements for IP care: Yes
PRN Pain Medication Management As Directed
May give lesser potent ordered pain med per pt: Yes
preference::
Protocol:: Medication orders for pain may be administered in a
manner that supports deferring to patient preference
when the pt is:
- Requesting an ordered lesser potent pain medication.
Least to most potent pain medications are defined
as: acetaminophen < NSAID < tramadol < opioids
(morphine, oxycodone, hydromorphone).
- Requesting a lesser dose of the same medication IF
ORDERED.
- Requesting a less intrusive route of administration
if both routes are prescribed by the provider (PO <
IV).
10/05/25 03:07
Code Status As Directed
Resuscitation Status: Do not resuscitate
Reached after discussion with pt or family/Healthcare POA: Yes
10/05/25 03:11
DNR Bracelet Application ONCE
10/05/25 05:40
0.9% Sodium Chloride 1000 ml [Nss] 1,000 ml IV 70 mls/hr
Acetaminophen [Tylenol] 650 mg PO Q4HPRN PRN
Dextrose 50%-Water [Dextrose 50% Syringe] 12.5 grams IV [id number] PRN
Glucagon [GlucaGen] 1 mg IM PRN PRN
HYDROmorphone [Dilaudid] 0.5 mg IV Q4HPRN PRN
Ipratropium/Albuterol Sulfate [Duoneb] 3 ml INH R Q4HPRN PRN
10/05/25 05:40
Neurosurgery Consult Routine
Consulting Provider: Jeff Lyn
Was physician already notified: Yes
Reason for Consult: Back Pain, Vertebral Fracture(s), LE Weakness
Activity As Directed
Activity Level: Ambulate
With Assistance
Bedside Glucose Monitoring As Directed
Frequency: AC&HS
Additional Instructions:: Change to q6h if pt on TPN, tube feeding or not eating
Bladder Scan As Directed
Follow Bladder Retention/Intermittent Cath Algorithm?: Yes
PRN if no void in __ hours: 6
Frequency: Per Retention Algorithm
If Bladder Scan Result >: 400
then:: Straight cath
EKG with chest pain [ECG as needed] As Directed
ECG as needed for:: Chest Pain
Hemetest Stools As Directed
I/O [Intake/ Output] As Directed
Frequency: Per unit guidelines
Neurological Checks As Directed
Frequency: q4h
Pneumatic Compression Sleeves As Directed
Type: Knee high
Straight Cath As Directed
Frequency: Per Retention Algorithm
Additional Instructions: straight cath as needed per acute urinary retention algorithm for 24 hrs
Additional Instructions: for bladder scan greater than 400 mL
Vital Signs As Directed
Frequency: Per unit guidelines
Weight As Directed
Frequency: Daily
Oxygen Therapy [O2 Therapy] [RESP] Routine
Titrate/Wean O2 to maintain O2 sat greater than (%): 94
Ot Eval And Treat Routine
PT Consult [Pt Eval And Treat] Routine
Activity Level: Ambulate
With Assistance
DX Deep Vein Thrombosis Video Routine
10/05/25 Breakfast
NPO
Allow oral meds: Yes
Allow clear liquids: Sips of Clears
Levothyroxine [Synthroid] 175 mcg PO DAILY @ 0600
10/05/25 06:19
B12 [Vitamin B12] Routine
Basic Metabolic Panel IN AM
Complete Blood Count/No Diff IN AM
Ferritin Routine
Folate Routine
Glycohemoglobin (HgbA1c) IN AM
Iron Routine
Total Iron Binding Routine
10/05/25 07:30
Insulin Aspart Corrective Low [Novolog Flexpen-Low Resistance] See Protocol SC AC
10/05/25 08:00
Amiodarone [Pacerone] 200 mg PO DAILY
Budesonide [Pulmicort] 0.5 mg INH R BID
Metoprolol Xl [Toprol Xl] 25 mg PO BID
Prednisone [Deltasone] 10 mg PO DAILY
10/05/25 22:00
Atorvastatin [Lipitor] 40 mg PO HS
Donepezil HCl [Aricept] 10 mg PO HS
Doxazosin Mesylate [Cardura] 3 mg PO HS
Abnormal Lab Results
10/04/25 10/05/25
22:32 00:34
WBC 32.3 H 10^3/uL
(4.8-10.8)
RBC 2.67 L 10^6/uL
(4.70-6.10)
Hgb 7.5 L g/dL
(13.0-18.0)
Hct 24.3 L %
(39.0-52.0)
MCHC 30.9 L g/dL
(33.0-37.0)
RDW 17.2 H %
(11.5-14.5)
MPV 10.6 H fL
(7.4-10.4)
Abs Immat Gran (auto) 0.5 H 10^3/uL
(0-0.05)
Absolute Neuts (auto) 30.7 H 10^3/uL
(1.4-6.5)
Absolute Lymphs (auto) 0.4 L 10^3/uL
(1.2-3.4)
Absolute Monos (auto) 0.7 H 10^3/uL
(0.1-0.6)
Immature Gran % 1.5 H %
(0-0.5)
Neutrophils % 95.3 H %
(42.2-75.2)
Lymphocytes % 1.1 L %
(20.5-51.1)
Sodium 129 L mmol/L
(135-145)
Carbon Dioxide 19 L mmol/L
(22-30)
BUN 101 H* mg/dl
(9-20)
Creatinine 3.0 H mg/dL
(0.7-1.3)
Glucose 103 H mg/dl
(70-99)
Calcium 7.6 L mg/dl
(8.4-10.2)
AST 12 L U/L
(17-59)
Creatine Kinase < 20 L U/L
(55-170)
Total Protein 4.9 L g/dl
(6.3-8.2)
Albumin 2.4 L g/dl
(3.5-5.0)
Lipase < 10 L U/L
(23-300)
Ur Occult Blood Reflex 2+ A
(Negative)
Leukocyte Esterase Rfl 3+ A
(Negative)
Urine WBC (Reflex) >100 A /HPF
(0-5)
Urine Bacteria (Reflex) Few A
(Negative)
Urine Albumin (Reflex) 2+ A
(Neg - Trace)
10/04/25 22:32
10/04/25 22:32
Vital Signs
Initial and Last Documented VS:
Initial Vital Signs
Pulse Resp Pulse Ox
79 18 95
10/04/25 22:15 10/04/25 22:15 10/04/25 22:15
Last Documented Vital Signs
Temp Pulse Resp BP Pulse Ox
98.9 F 71 19 114/45 99
10/05/25 11:55 10/05/25 10:00 10/05/25 09:22 10/05/25 10:00 10/05/25 10:21
<Lauren Frankel, DO - Last Filed: 10/05/25 15:14>
Orders/Labs/Results
Orders:
Orders
10/04/25 22:32
Alcohol Urgent
Complete Blood Count/With Diff Urgent
Comprehensive Metabolic Panel Urgent
Creatine Phosphokinase Urgent
Lipase Urgent
Comment: ADD ON
10/04/25 23:47
Add On- LAB Urgent
Tests Added?: cpk, lipase
10/04/25 23:48
Add On- LAB Urgent
Tests Added?: alcohol level
10/05/25 00:08
Electrocardiogram (*1) Urgent
Reason for Study: Heart Failure, Left
EKG- Treatment ONCE
10/05/25 00:09
CT Head W/o Iv Contrast Urgent
Comment:
Reason For Exam: weakness, altered mental status
10/05/25 00:24
CT Chest/abd/pel Wo Iv Cont Urgent
Comment:
Reason For Exam: sepsis, back pain, intermittent sob
10/05/25 00:28
Fentanyl Citrate/Pf [Sublimaze] 25 mcg IV NOW STA
10/05/25 00:34
COVID-19 Antigen Urgent
Source: Nasal Swab
NT-proBNP Urgent
Troponin I Urgent
Urinalysis Reflex To Culture Urgent
Date Specimen was Collected: 10/05/25
Time Specimen was Collected: 00:32
Urine Microscopic Reflex Cult Urgent
Influenza A+B Rapid Molecular Urgent
JULES Source: Nasal Swab
Specimen Description:
Urine Culture Urgent
JULES Source: U
Specimen Description:
Date Specimen was Collected: 10/05/25
Time Specimen was Collected: 00:32
10/05/25 01:01
0.9% Sodium Chloride 500 ml [Nss] 500 ml IV BOLUS
10/05/25 01:11
Acetaminophen [Tylenol] 1,000 mg PO NOW STA
10/05/25 01:19
Piperacillin/Tazo 4.5 Gram [Zosyn] 4.5 gram in 100 ml IV NOW
10/05/25 01:31
Lactic Acid Urgent
Blood Culture Q30M
JULES Source: Blood/Venous
Specimen Description:
10/05/25 02:24
Blood Culture Q30M
JULES Source: Blood/Venous
Specimen Description:
10/05/25 02:32
Vancomycin [Vancocin] 1,500 mg 0.9% Sodium Chloride 500 ml [Nss] 500 ml IV NOW
10/05/25 03:00
Admit/Transfer Patient As Directed
Co-Sign Provider:
Level of Care: Inpatient admission
Assign to:: IMU- Intermediate Care
Physician / Group: Sb
Diagnosis: FAHEEM, Anemia, Osteomyelitis / Discitis
Reason for Hospitalization: FAHEEM, Anemia, Osteomyelitis / Discitis
Expected length of stay greater than two midnights?: Yes
ELOS- Estimated Length of Stay in days: 4
I certify the patient meets the requirements for IP care: Yes
PRN Pain Medication Management As Directed
May give lesser potent ordered pain med per pt: Yes
preference::
Protocol:: Medication orders for pain may be administered in a
manner that supports deferring to patient preference
when the pt is:
- Requesting an ordered lesser potent pain medication.
Least to most potent pain medications are defined
as: acetaminophen < NSAID < tramadol < opioids
(morphine, oxycodone, hydromorphone).
- Requesting a lesser dose of the same medication IF
ORDERED.
- Requesting a less intrusive route of administration
if both routes are prescribed by the provider (PO <
IV).
10/05/25 03:07
Code Status As Directed
Resuscitation Status: Do not resuscitate
Reached after discussion with pt or family/Healthcare POA: Yes
10/05/25 03:11
DNR Bracelet Application ONCE
10/05/25 05:40
0.9% Sodium Chloride 1000 ml [Nss] 1,000 ml IV 70 mls/hr
Acetaminophen [Tylenol] 650 mg PO Q4HPRN PRN
Dextrose 50%-Water [Dextrose 50% Syringe] 12.5 grams IV [id number] PRN
Glucagon [GlucaGen] 1 mg IM PRN PRN
HYDROmorphone [Dilaudid] 0.5 mg IV Q4HPRN PRN
Ipratropium/Albuterol Sulfate [Duoneb] 3 ml INH R Q4HPRN PRN
10/05/25 05:40
Neurosurgery Consult Routine
Consulting Provider: Jeff Lyn
Was physician already notified: Yes
Reason for Consult: Back Pain, Vertebral Fracture(s), LE Weakness
Activity As Directed
Activity Level: Ambulate
With Assistance
Bedside Glucose Monitoring As Directed
Frequency: AC&HS
Additional Instructions:: Change to q6h if pt on TPN, tube feeding or not eating
Bladder Scan As Directed
Follow Bladder Retention/Intermittent Cath Algorithm?: Yes
PRN if no void in __ hours: 6
Frequency: Per Retention Algorithm
If Bladder Scan Result >: 400
then:: Straight cath
EKG with chest pain [ECG as needed] As Directed
ECG as needed for:: Chest Pain
Hemetest Stools As Directed
I/O [Intake/ Output] As Directed
Frequency: Per unit guidelines
Neurological Checks As Directed
Frequency: q4h
Pneumatic Compression Sleeves As Directed
Type: Knee high
Straight Cath As Directed
Frequency: Per Retention Algorithm
Additional Instructions: straight cath as needed per acute urinary retention algorithm for 24 hrs
Additional Instructions: for bladder scan greater than 400 mL
Vital Signs As Directed
Frequency: Per unit guidelines
Weight As Directed
Frequency: Daily
Oxygen Therapy [O2 Therapy] [RESP] Routine
Titrate/Wean O2 to maintain O2 sat greater than (%): 94
Ot Eval And Treat Routine
PT Consult [Pt Eval And Treat] Routine
Activity Level: Ambulate
With Assistance
DX Deep Vein Thrombosis Video Routine
10/05/25 Breakfast
NPO
Allow oral meds: Yes
Allow clear liquids: Sips of Clears
Levothyroxine [Synthroid] 175 mcg PO DAILY @ 0600
10/05/25 06:19
B12 [Vitamin B12] Routine
Basic Metabolic Panel IN AM
Complete Blood Count/No Diff IN AM
Ferritin Routine
Folate Routine
Glycohemoglobin (HgbA1c) IN AM
Iron Routine
Total Iron Binding Routine
10/05/25 07:30
Insulin Aspart Corrective Low [Novolog Flexpen-Low Resistance] See Protocol SC AC
10/05/25 08:00
Amiodarone [Pacerone] 200 mg PO DAILY
Budesonide [Pulmicort] 0.5 mg INH R BID
Metoprolol Xl [Toprol Xl] 25 mg PO BID
Prednisone [Deltasone] 10 mg PO DAILY
10/05/25 22:00
Atorvastatin [Lipitor] 40 mg PO HS
Donepezil HCl [Aricept] 10 mg PO HS
Doxazosin Mesylate [Cardura] 3 mg PO HS
Abnormal Lab Results
10/04/25 10/05/25
22:32 00:34
WBC 32.3 H 10^3/uL
(4.8-10.8)
RBC 2.67 L 10^6/uL
(4.70-6.10)
Hgb 7.5 L g/dL
(13.0-18.0)
Hct 24.3 L %
(39.0-52.0)
MCHC 30.9 L g/dL
(33.0-37.0)
RDW 17.2 H %
(11.5-14.5)
MPV 10.6 H fL
(7.4-10.4)
Abs Immat Gran (auto) 0.5 H 10^3/uL
(0-0.05)
Absolute Neuts (auto) 30.7 H 10^3/uL
(1.4-6.5)
Absolute Lymphs (auto) 0.4 L 10^3/uL
(1.2-3.4)
Absolute Monos (auto) 0.7 H 10^3/uL
(0.1-0.6)
Immature Gran % 1.5 H %
(0-0.5)
Neutrophils % 95.3 H %
(42.2-75.2)
Lymphocytes % 1.1 L %
(20.5-51.1)
Sodium 129 L mmol/L
(135-145)
Carbon Dioxide 19 L mmol/L
(22-30)
BUN 101 H* mg/dl
(9-20)
Creatinine 3.0 H mg/dL
(0.7-1.3)
Glucose 103 H mg/dl
(70-99)
Calcium 7.6 L mg/dl
(8.4-10.2)
AST 12 L U/L
(17-59)
Creatine Kinase < 20 L U/L
(55-170)
Total Protein 4.9 L g/dl
(6.3-8.2)
Albumin 2.4 L g/dl
(3.5-5.0)
Lipase < 10 L U/L
(23-300)
Ur Occult Blood Reflex 2+ A
(Negative)
Leukocyte Esterase Rfl 3+ A
(Negative)
Urine WBC (Reflex) >100 A /HPF
(0-5)
Urine Bacteria (Reflex) Few A
(Negative)
Urine Albumin (Reflex) 2+ A
(Neg - Trace)
10/04/25 22:32
10/04/25 22:32
Vital Signs
Initial and Last Documented VS:
Initial Vital Signs
Pulse Resp Pulse Ox
79 18 95
10/04/25 22:15 10/04/25 22:15 10/04/25 22:15
Last Documented Vital Signs
Temp Pulse Resp BP Pulse Ox
98.9 F 71 19 114/45 99
10/05/25 11:55 10/05/25 10:00 10/05/25 09:22 10/05/25 10:00 10/05/25 10:21
<Pooja Acosta PA-C - Last Filed: 10/05/25 06:03>
MDM/Problems Addressed
Differential Diagnosis Includes:
ddx include Pneumonia, urinary tract infection, intra-abdominal infection,spinal infection, compression fracture, hyponatremia/electrolyte derangement, failure to thrive, nutritional deficiency,
MDM/Problems Addressed:
85-year-old male with past history of chronic pancreatitis, liver cirrhosis, COPD, CHF, CAD, presents to ER today with concerns of generalized weakness. He does take Eliquis for Atrial fibrillation.He lives in independent living at [facility]
campus with his . and daughter reports that patient has barely been walking or moving due to his lumbar compression fractures. He had a new fall most recently on September 17 and was not evaluated by anyone at the time refuse
hospitalization. He has been dealing with chronic back pain. Since then, patient has been not eating or walking much and sitting in a chair. He has no other complaints other than back pain. Not necessarily more severe recently but has traveled a
little bit higher around the thoracic region. He is chronically incontinent of urine. CT head showing nothing acute. His CT chest abdomen pelvis reveals no acute infectious process but does show small pleural effusions, new suspicious left lung
apical mass, and new thoracic compression fractures through the disc. He developed fever in the ER. His WBC count is 32.3, suspect likely from hydration, underlying malignancy, infectious process. We did start him on Vanc Zosyn. Urine could be
source of infection. BUN 101, creatinine 3.0, hemoglobin 7.5. He does have brown heme positive stool. Hold Eliquis. He is consented for blood. He was referred for admission.
Chronic conditions affecting care:
chf, afib, hlp, htn, cirrhosis
<Pooja Acosta PA-C - Last Filed: 10/05/25 06:03>
*Pulse Oximetry
SaO2: 95
Oxygen Mode of Delivery: Room air
Patient hypoxic: no
Data Reviewed
Review of Other/Old Records Reveals: Records (Reviewed discharge summary from 08/07/2025, patient admitted for acute CHF)
Source: patient and records
<Lauren Frankel DO - Last Filed: 10/05/25 15:14>
*Critical Care Note
Total Time (30-74mins, 75-104mins- exclusive of procedures): 55
comment:
The high probability of a clinically significant, sudden or life threatening deterioration of the genitourinary system(s), with additional sepsis, required my full and direct attention, intervention and personal management. The aggregate critical
care time was 55 minutes. This time is in addition to time spent performing reported procedures but includes the following:
[x] Data Review and interpretation
[x] Patient assessment and monitoring of vital signs
[x] Documentation
[x] Medication orders and management
ED Attending Note
<Pooja Acosta PA-C - Last Filed: 10/05/25 06:03>
-
Portions of this chart may have been created with voice recognition software.� Occasional wrong word or��sound alike� substitutions may have occurred due to the inherent limitations of voice recognition software.
<Lauren Frankel DO - Last Filed: 10/05/25 15:14>
ED Attending Note
Patient seen and examined by attending physician: Yes
I performed the substantive portion of visit, reviewed & personally made and approve the management plan that is documented in note by myself or VLADIMIR.: Yes
I performed a history and physical exam of patient and discussed management with resident, I reviewed resident's note and agree with documented findings and plan of care.: Yes
ED Attending Note:
85-year-old male with history of CHF, CKD, hypertension, COPD, A-fib on Eliquis presenting to the emergency department for concern of generalized weakness and failure to thrive. Patient had a fall back in August, found to have lumbar compression
fractures. Patient went to rehab, and then went back home. Notes that he had another fall on 09/17, was not seen in the hospital and has since been essentially laying in a chair, decreased p.o. intake. Increased frequency of falls within the past
several months, failure to thrive at home. Unable to get out of bed. Patient arrives with daughter. Patient continues to note back pain. Reports the pain is in his lumbar back, radiates up to the thoracic back. Noted to be incontinent to urine
at baseline, with increasing frequency of fecal incontinence as well. Denies focal weakness or numbness to his lower extremities. Denies any known fever or infectious symptoms such as chest pain, difficulty breathing, dysuria.
Vital signs on arrival significant for low blood pressure, however improved upon arrival to the hospital. Patient also noted to have low-grade temperature. On exam, no acute distress, however continues to report pain to his back. Benign cardiac
and pulmonary exam. No tenderness to abdomen. No signs of trauma to the head/upper extremities/lower extremities. Generalized tenderness to the lower thoracic and upper lumbar back without step-offs. No overlying skin changes. Global weakness
to lower extremities. Labs obtained prior to my assessment, grossly abnormal with acute kidney injury and hyponatremia, suspected from dehydration from decreased p.o. intake. Will start gentle fluid hydration given underlying CHF. In addition,
patient anemic, slightly worse from baseline. This prompted rectal exam, heme positive. Patient is on Eliquis, with concern for GI bleed. Will hold Eliquis. However at this time hemodynamically stable without necessity for Kcentra. Regarding
low-grade temperature, unclear source of infection. Patient also with profound leukocytosis. Will send lactic acid in the setting of sepsis. Will send blood cultures. Holding off on full 30 cc/kg fluid bolus given patient's known history of CHF.
Will send urine. Also plan for CT of the chest abdomen pelvis given worsening back pain, with potential for additional underlying infection.
01:20 - Urine shows evidence of infection. CT of the chest abdomen pelvis shows new apical mass, which could be contributing to patient's profound leukocytosis, in addition to underlying infection. Additionally there are signs of compression
fractures to the thoracic and lumbar spine, with a thoracic compression fractures being acute versus subacute. This is consistent with patient's exam. No additional signs of acute infection. Started broad-spectrum antibiotics and admitting for
sepsis and FAHEEM. Would likely benefit from MRI of the spine given profound leukocytosis with back pain to evaluate for additional signs of infection, with neurosurgical consultation.
Discharge Plan
Departure
Patient Disposition: Admit
Date of Disposition: 10/05/25
Time of Disposition: 01:57
Presentation/result/management discussed w/ accepting MD/DO: Hospitalist
Condition: Fair
Discharge Problem:
Sepsis, Acute kidney injury, Fracture of thoracic spine
Interventions
Interventions:
*Risk Screen - Suicide Last Done: 10/04/25 22:15
*General Assessment Last Done: 10/04/25 22:15
*Neglect/Abuse Screening Last Done: 10/04/25 22:15
*ED- Fall Risk Assessment Last Done: 10/04/25 22:15
*ED COVID-19 Vaccine History Last Done: 10/04/25 22:15
*ED Influenza Vaccine History Last Done: 10/04/25 22:15
*Nursing Disposition Last Done: 10/05/25 05:27
ED- Cardiac Assessment Last Done: 10/05/25 01:08
ED- Neurological Assessment Last Done: 10/05/25 01:08
ED- Pulmonary Assessment Last Done: 10/05/25 01:08
[2025-10-05] MEDS: SUBLIMAZE 25 MCG IV (00:50)
[2025-10-05 00:57] LABS: Urine Character Slightly Cloudy (Clear)
[2025-10-05 01:06] LABS: Urine Red Blood Cell 0-2 /HPF (0-2); Urine White Cell >100 /HPF (0-5)
[2025-10-05] MEDS: TYLENOL 1000 MG PO (01:24)
[2025-10-05] MEDS: NSS 500 IV (01:30)
[2025-10-05 01:32] LABS: COVID-19 Antigen Negative (Negative)
[2025-10-05] MEDS: ZOSYN 100 IV (01:35)
[2025-10-05 01:46] LABS: Troponin I 0.017 ng/ml
[2025-10-05] MEDS: VANCOCIN 530 MG IV (02:38)
--- NOTE | 2025-10-05 03:23 | HPS.HSE ---
Family Physician
-
Family Physician: Dexter Meng
Chief Complaint
-
Back Pain, LE Weakness
History of Present Illness
Patient is an 85y M with PMH significant for ASCVD, HFpEF, A-Fib on Eliquis and DM-II who presents to ED complaining of back pain and LE weakness. Patient states that his symptoms have been ongoing for about 2 months now. He was last
hospitalized here 08/02 - 08/06 and treated for CHF exacerbation at that time. Two days later he had an MRI of his L spine which showed L4 compression fracture and L5 spinous process fracture with associated edema and severe central canal stenosis at
L3-4. Patient states that he has been participating with PT since that time.
He has noted progressively worsening LE weakness since that time. He has had multiple falls - he estimates about 5-6 in the past two months.
He denies any head injuries during any of his falls. He has continued to have back pain - distinctly in the low back and in the mid back with radiation around the side. No radicular pain into the legs. He reports decreased sensation in the legs
and decreased strength.
This afternoon, patient was completely unable to get up from his chair around 3PM. He could not stand with his 's assistance. 911 was called and he was brought to the ED for further evaluation and treatment.
In the ED, patient has a rectal temperature of 100.5.
He denies any symptoms of headache, cough, abd pain, N/V/D, dysuria, etc.
He states that he has had episodes of bladder and bowel incontinence - this developed over the past month or so.
Medical History
Past Medical History
Past Medical History: Reports Other
Additional Past Medical History:
ASCVD
Chronic HFpEF
s/p TAVR
Heart Block s/p PPM
Atrial Fibrillation
Hypothyroidism
ILD
Chronic Hypoxemia (Nocturnal O2 at Home)
COPD
Hypertension
CKD III
Anemia of Chronic Disease
DM-II
Pancreatic Insufficiency
Dementia
Past Surgical History: Reports Other
Additional Past Surgical History:
PTCA with Stent
TAVR
PPM Placement
Right FELIPA
Cataracts
Social History
Tobacco: Former Smoker (Quit smoking about 20 years ago. > 40 pack years total use.)
Alcohol: Former (Quit drinking entirely about 15 years ago.)
Drug: None
Family History
Family History: Not pertinent
Allergies / Home Medications
Allergies reflects when Allergies were last updated in [facility].
Home Medications with original date entered in [facility]
Allergy/Medication List:
Allergies
Allergy/AdvReac Type Severity Reaction Status Date / Time
No Known Allergies Allergy Verified 04/05/25 00:35
Home Medications
cyanocobalamin (vitamin B-12) 1,000 mcg tablet 1,000 mcg PO QPM Supplement 01/13/20
levothyroxine 175 mcg tablet 175 mcg PO DAILY Thyroid 01/13/20
sertraline 50 mg tablet 50 mg PO HS Mental Health/Anxiety 01/13/20
pantoprazole 40 mg tablet,delayed release 40 mg PO QPM Gastrointestinal issue 05/15/20
budesonide 0.5 mg/2 mL suspension for nebulization 0.5 mg (2 mL) inhalation R BID 30 days ##2 05/07/21
magnesium oxide 400 mg PO QPM Supplement 03/15/22
azithromycin 250 mg tablet (Zithromax) 250 mg PO QPM Infection 05/25/24
donepezil 10 mg tablet 10 mg PO HS Mental Health/Anxiety 05/25/24
ipratropium 0.5 mg-albuterol 3 mg (2.5 mg base)/3 mL nebulization soln 3 ml inhalation R TID Lung/Breathing Issues 05/25/24
prednisone 10 mg tablet 10 mg PO DAILY Anti-Inflammatory 05/25/24
vitamins A,C,I-nfgv-oyktrd 2,148 mcg-113 mg-45 mg-17.4 mg tablet (PreserVision AREDS) 1 tab PO BID Supplement 05/25/24
cholecalciferol (vitamin D3) 25 mcg (1,000 unit) tablet 50 mcg PO QPM Supplement 06/17/24
apixaban 2.5 mg tablet (Eliquis) 2.5 mg PO BID 30 days #60 tabs 06/22/24
doxazosin 1 mg tablet 3 mg (3 x 1 mg) PO HS 30 days #90 tabs 06/22/24
amiodarone 200 mg tablet (Pacerone) 200 mg PO DAILY AFIB 04/05/25
atorvastatin 40 mg tablet (Lipitor) 40 mg PO HS High Cholesterol 04/05/25
metoprolol succinate 25 mg tablet,extended release 24 hr 25 mg PO BID Blood Pressure 04/05/25
avwwxd-rhotupko-cpmhzf(pork)24,000-76,000-120,000 unit capsule,del rel (Creon) 2 cap PO MEALS Gastrointestinal Issue 07/15/25
potassium chloride 20 mEq tablet,extended release(part/cryst) 20 meq PO BID #0 tabs 07/22/25
bisacodyl 10 mg rectal suppository (Dulcolax (bisacodyl)) 10 mg KS DAILY PRN no bm x 8h post MOM 08/02/25
guaifenesin 600 mg tablet, extended release 12 hr 600 mg PO BID Cough 08/02/25
insulin aspart U-100 100 unit/mL (3 mL) subcutaneous pen (Novolog FlexPen U-100 Insulin aspart) 0 - 6 sliding scale dose SC AC Diabetes 08/02/25
nxvesg-vrhbqeso-lmsqjc(pork)24,000-76,000-120,000 unit capsule,del rel (Creon) 1 cap PO TIDPRN PRN SNACKS 08/02/25
metolazone 5 mg tablet 2.5 mg PO 4-8XD Fluid Retention/Swelling 08/02/25
acetaminophen 325 mg tablet (Pain Relief (acetaminophen)) 650 mg PO Q6HPRN PRN mild pain/ fever>100.5F 10/05/25
furosemide 80 mg tablet (Lasix) 60 mg PO BID 10/05/25
Review of Systems
-
History Source: Patient
A 12 point ROS was completed and negative except as noted: Yes
Constitutional: Denies Fever, Fatigue or Chills
EENT: Denies Sore Throat
Respiratory: Denies Cough or Trouble Breathing
Cardiac: Denies Chest Pain or Palpitations
Abdomen/GI: Denies Abdominal Pain, Nausea, Vomiting or Diarrhea
: Reports Incontinence; Denies Dysuria or Frequency
Musculoskeletal: Reports Other (Back pain); Denies Joint Pain or Edema
Neurological: Reports Weakness and Numbness; Denies Dizzy or Headache
Psych: Denies Depression or Anxiety
Physical Exam
Vital Signs
Vital Signs
Temp Pulse Resp BP Pulse Ox
100.5 F H 71 17 113/53 94
10/05/25 00:45 10/05/25 00:45 10/05/25 00:45 10/05/25 00:17 10/05/25 01:08
Physical Exam
General: Other (85y M in no acute distress.)
HEENT: Moist mucous membranes and PERRLA
Respiratory: Clear; No Wheezes, Rales or Rhonchi
Cardiac: S1/S2, Irregular Rhythm and Murmur (II/ JOHNNY)
GI: Soft, Non Tender, Non Distended and Normal Bowel Sounds
Musculoskeletal: No Clubbing, No Cyanosis and Other (Trace - 1+ edema b/l LEs. Posterior tenderness over T10-12 area and L3-5 areas.)
Neuro: AO x 3 and Other (Some degree of global weakness in UE and LE. Proximal > distal weakness of bilateral LEs. Gross sensation seems symmetric / intact.)
Laboratory Results
-
10/04/25 22:32
10/04/25 22:32
Laboratory Results
Lactic Acid 1.0 mmol/L (0.7-2.0) 10/05/25 01:31
Total Bilirubin 0.4 mg/dl (0.2-1.3) 10/04/25 22:32
AST 12 U/L (17-59) L 10/04/25 22:32
ALT 13 U/L (0-50) 10/04/25 22:32
Alkaline Phosphatase 99 U/L (38-126) 10/04/25 22:32
Troponin I 0.017 ng/ml 10/05/25 00:34
Lipase < 10 U/L (23-300) L 10/04/25 22:32
Impression/Plan
-
A/P: Patient is an 85y M with PMH significant for ASCVD, A-Fib and DM-II who presents to ED complaining of two months of progressive back pain, LE weakness and frequent falls.
Back Pain / LE Weakness
Frequent Falls secondary to the above
Thoracic / Lumbar Vertebral Fractures with Associated Edema
- Admit for further evaluation and treatment.
- Progressive symptoms x 2 months with frequent falls, LE weakness, back pain and incontinence.
- Subacute presentation at this point.
- No evidence of MR spine or CT A/P today of any fluid collection / abscess / etc.
- Received initial doses of abx in the ED. Will hold on further doses for now pending culture data, increased fevers, etc.
- MRI T and L spine for further evaluation. ? IR biopsy / aspiration if any targets for such identified.
- Neurosurgery evaluation for additional recommendations.
- Supportive care, pain control, etc.
- Follow for changes in neurologic exam.
FAHEEM on CKD III
Hyponatremia
Non-Gapped Metabolic Acidosis
Chronic HFpEF
- SCr = 3 compared to baseline of 1.5.
- Weight is decreased from recent baseline.
- Hold diuretic regimen acutely.
- Gentle IVFs. Follow for improvement in labs / lytes.
- Follow daily weights, I/Os, etc.
Leukocytosis
- Acute on chronic. 32k at present with baseline apparently in the high teens.
- ? underlying chronic hematologic process, etc.
- Follow for changes in cell counts.
- Follow-up culture data, fever curve, etc as noted above.
Normocytic Anemia
Heme Positive Stool
- Hgb today is 7.5 compared to prior baseline 9.4.
- No noted blood loss per patient. Heme positive stool noted in the ED.
- Follow H&H for changes. Check iron studies, etc.
- IV PPI daily.
ASCVD
Paroxysmal Atrial Fibrillation
s/p TAVR
- Stable. Hold Eliquis acutely.
- Continue amiodarone.
- No complaints of chest pain, dyspnea, etc.
ILD / COPD
Spiculated Lung Lesion
- No acute dyspnea, wheezing, etc.
- Continue usual inhalers. Continue prednisone dose with no changes for now.
- Patient informed of CT finding of spiculated lesion in the MILA - will require further evaluation as an outpatient.
DM-II
- Stable. Follow glucose and cover with SSI as needed.
- Update A1C.
Hypothyroidism
- Continue T4 supplementation.
DVT Prophylaxis: SCDs
Code Status: DNR
[2025-10-05 05:35] LABS: Glucose - Point of Care 104 mg/dl (70-99)
--- NOTE | 2025-10-05 06:10 | PTCARENOTE ---
on assessment pt AAOx3, c/o pain with movements, multiple wounds noted, WC ordered, AV paced on the monitor, 2L NC, NPO, male purwick placed by ED, call mcclure in reach
[2025-10-05] MEDS: NSS IV (06:13)
[2025-10-05] MEDS: SYNTHROID PO (06:13)
[2025-10-05] MEDS: DILAUDID IV (06:21)
[2025-10-05] MEDS: NSS 1000 IV ×2 (06:21→19:24)
[2025-10-05] MEDS: DILAUDID 0.5 MG IV ×4 (06:35→22:23)
--- NOTE | 2025-10-05 06:37 | PTCARENOTE ---
on assessment pt AAOx3, BOOKER but weak, denies numbness or tingling, + pulses, afebrile, denies chest pain and SOB, NPO, AM labs sent, PRN meds given per orders see JAN, NSS started at 100ml/hr, bed alarm on and call mcclure in reach
[2025-10-05 06:38] LABS: Hematocrit 22.7 % (39.0-52.0); Hemoglobin 7.0 g/dL (13.0-18.0); Mean Corp Hgb Conc. 30.8 g/dL (33.0-37.0); Mean Corpuscular Volume 91.9 fL (80.0-94.0); Platelet Count 178 10^3/uL (130-400); Red Cell Dist. Width 17.1 % (11.5-14.5)
--- NOTE | 2025-10-05 06:42 | PTCARENOTE ---
hbg 7 on AM labs, CD REACTOR OPERATOR paged and made aware
[2025-10-05 07:06] LABS: Blood Urea Nitrogen 100 mg/dl (9-20); Calcium 7.0 mg/dl (8.4-10.2); Carbon Dioxide 19 mmol/L (22-30); Chloride 110 mmol/L (98-107); Estimated Creatinine Clearance 19 ml/min; Glucose 81 mg/dl (70-99); Potassium 3.8 mmol/L (3.5-5.1); Sodium 136 mmol/L (135-145); eGFR 20.55
[2025-10-05 07:16] LABS: Iron < 20 ug/dl (49-181); Total Iron Binding Capacity 130 ug/dl (261-462)
[2025-10-05] MEDS: PULMICORT 0.5 MG INH ×2 (07:21→19:14)
[2025-10-05 07:41] LABS: Ferritin 176.0 ng/ml (17.9-464.0)
[2025-10-05] MEDS: SYNTHROID 175 MCG PO (08:01)
--- NOTE | 2025-10-05 08:02 | W.PN.HOSP.TC ---
Today's Communication/Plan
-
See plan
Assessment / Plan
Assessment / Plan
Physical Exam
General: Not in acute distress
HEENT: Moist mucous membranes
Respiratory: Mild Crackles Bilaterally
Cardiac: S1/S2, Regular Rhythm and Murmur (II/ JOHNNY)
GI: Soft, Non Tender, Non Distended and Normal Bowel Sounds
Extremities: 3+ pitting edema in the bilateral lower extremities
Neuro: AAO x 3 and Other (Some degree of global weakness in UE and LE. Proximal > distal weakness of bilateral LEs. Gross sensation seems symmetric / intact.)
Assessment/Plan
85 y/o male with past medical history significant for ASCVD, HFpEF, A-Fib on Eliquis and DM-II who presented to [facility] ED complaining of back pain and lower extremity weakness. Patient stated that his symptoms have been ongoing for about 2 months now.
He was last hospitalized here 08/02/25 - 08/06/25 and treated for heart failure exacerbation at that time. Two days later he had an MRI of his L spine which showed L4 compression fracture and L5 spinous process fracture with associated edema and severe
central canal stenosis at L3-4. Patient stated that he had been participating with physical therapy since that time. Patient was placed on Lyrica for pain, but later developed encephalopathy from it, therefore Lyrica was stopped and his
encephalopathy improved. Patient was also taken off narcotic pain meds and has been in and out of halfway. Patient had lifted weights, hurt his back and placed back on narcotic pain medications.
Back Pain / Progressively worsening lower extremity weakness and decreased sensation
Frequent Falls
Thoracic / Lumbar Vertebral Fractures with Associated Edema
- Progressive symptoms x 2 months with frequent falls, LE weakness, back pain -- no true incontinence (has stools that may come out because of urge to defecate from chronic pancreatitis, Creon)
- Received initial doses of abx in the ED. Will hold on further doses for now pending culture data, increased fevers, etc. -- appreciate ID
- MRI T and L spine for further evaluation. ? IR biopsy / aspiration if any targets for such identified.
- Neurosurgery evaluation for additional recommendations.
- Supportive care, pain control, etc.
- Follow for changes in neurologic exam.
Fever
Leukocytosis
Spine Discitis/Osteomyelitis
- Discussed case with Dr. Cherry, she recommended holding off on antibiotics unless blood cultures are positive or until after a potential biopsy (which will be done if blood cultures are negative)
- Follow blood cultures, if negative, then IR request for biopsy
HFpEF
Bilateral Pleural Effusions
Moderate to severe mitral stenosis
- proBNP is elevated at [address] shows small B/L pleural effusions. His lower extremity edema has worsened despite recent adjustment of diuretic therapy including Lasix 60 mg twice daily and Zaroxolyn 2.5 mg Friday and Friday.
- Holding diuretics and providing IV fluids for now (please see below)
FAHEEM on CKD III
Hyponatremia
Non-Gapped Metabolic Acidosis
Chronic HFpEF
- Initial Serum Cr = 3 compared to baseline of 1.5.
- Hold diuretic regimen acutely.
- Gentle IVFs given poor oral intake and dry mucus membranes
- Follow daily weights, I/Os, etc.
Severe Bilateral Lower Extremity Edema
Hypoalbuminemia
- Edema from third spacing
- Evaluate for nephrotic syndrome as per nephrology
Leukocytosis
- Acute on chronic. ~27k at present with baseline apparently in the high teens.
- ? underlying chronic hematologic process, etc.
- Follow for changes in cell counts.
- Follow-up culture data, fever curve, etc as noted above.
Iron Deficiency Anemia
Heme Positive Stool
- Hgb is 7.0 to 7.5 initially, compared to prior baseline 9.4 (but patient's daughter stated that it has been in the 7 to 8 range in the past)
- No noted blood loss per patient. Heme positive stool noted in the ED.
- Patient's daughter stated she would prefer to hold off on blood transfusion to prevent further fluid overload and unless the Hgb gets worse or patient bleeding, this is reasonable
- Follow H&H for changes.
- Will consider starting oral iron. Avoiding IV iron due to concern for infection as above.
- IV PPI daily.
- Appreciate GI evaluation
ASCVD
Paroxysmal Atrial Fibrillation
s/p TAVR
- Stable. Hold Eliquis acutely.
- Continue outpatient Amiodarone.
- No complaints of chest pain, dyspnea, etc.
ILD / COPD
New lung mass suggestive of new malignancy with hilar lymph node involvement concerning for mets
- No acute dyspnea, wheezing, etc.
- Continue usual inhalers. Continue prednisone dose with no changes for now.
- Patient informed of CT finding of spiculated lesion in the MILA - will require further evaluation as an outpatient.
- MRI T and L spine performed on 10/05/25 showed no metastases
- Appreciate oncology input on prognosis
DM-II
- Stable. Follow glucose and cover with SSI as needed.
- Updated A1C 6.6%
Hypothyroidism
- Continue T4 supplementation.
Gout
- No longer on Colchicine because of renal insufficiency
DVT Prophylaxis: SCDs
Code Status: DNR
This is a non-billable note.
Anticipated Discharge: > 48 hours
Subjective/Interval History
-
Date of Service: October 05, 2025
Patient was seen and examined. He denied any new symptoms since coming in. Still with pain.
Objective Data
-
Labs:
Laboratory Results
10/04/25 10/05/25 10/05/25
22:32 06:19 10:00
WBC 32.3 H 26.7 H
Hgb 7.5 L 7.0 L Pending
Hct 24.3 L 22.7 L Pending
Plt Count 196 178
Sodium 129 L 136
Potassium 4.2 3.8
Chloride 105 110 H
Carbon Dioxide 19 L 19 L
BUN 101 H* 100 H
Creatinine 3.0 H 2.9 H
Glucose 103 H 81
Calcium 7.6 L 7.0 L
Total Bilirubin 0.4
AST 12 L
ALT 13
Alkaline Phosphatase 99
10/05/25 10/05/25
16:00 22:00
WBC
Hgb Pending Pending
Hct Pending Pending
Plt Count
Sodium
Potassium
Chloride
Carbon Dioxide
BUN
Creatinine
Glucose
Calcium
Total Bilirubin
AST
ALT
Alkaline Phosphatase
Vital Signs:
Vital Signs
Temp Pulse Resp BP Pulse Ox
98.3 F 70 16 105/42 98
10/05/25 07:43 10/05/25 07:22 10/05/25 07:22 10/05/25 06:00 10/05/25 07:22
[2025-10-05] MEDS: NSS (PRESERVATIVE FREE) 10 ML IV ×2 (08:12→20:08)
[2025-10-05] MEDS: PROTONIX IV 40 MG IV ×2 (08:12→20:08)
[2025-10-05 08:13] LABS: Folate 9.9 ng/ml (2.76-20); Vitamin B12 > 1000 pg/ml (239-931)
--- NOTE | 2025-10-05 09:00 | PTCARENOTE ---
Rec'd pt at 0800 awake alert and oriented resting in bed with daughter at the bedside. Pt c/o 8/10 bilat lower back and L ankle pain (states he has gout in his ankle). BOOKER but legs are weak and admits it is very painful to turn. Speech is clear.
Denies dizziness or headache. Skin is pale and warm. Arms and chest with bruised areas and pt with multiple silicone border foams over reported skin tears. Sacrum with stage 2 pressure injury. Heels with foam dressings and elevated on pillows. KH
SCD's placed on pt per orders. Respirs are sl shallow but non-labored on 2l nc with sats of 98%. BS overall are decreased with faint end exp wheeze. Monitor AV paced. VS as documented. +1 arm edema and +2 b/l lower extrem edema. Denies chest pain.
Abd is soft with + BS. Denies nausea. Took pills with water. No diff with swallowing. Male purewick in place and pt voiding cloudy yellow urine. Purewick intact-no drainage noted. IV NSS infusing via LAC IV site at 100 ml/hr. Pt turned and
repositioned. Skin and mouth care given. Dentures placed in pts mouth but uppers not fitting well so currently in denture cup. Call mcclure in reach.
[2025-10-05] MEDS: PACERONE 200 MG PO (09:23)
[2025-10-05] MEDS: TOPROL XL 25 MG PO ×2 (09:23→20:09)
[2025-10-05] MEDS: DELTASONE 10 MG PO (09:23)
--- NOTE | 2025-10-05 09:32 | W.CON.NEPH ---
Consultation
-
Date/Time Consultation Requested: 10/05/25 9am
Date/Time Consultation Performed: 10/05/25 9am
Requesting Provider: Dr. Basurto
Performing Provider: Dr Peirre
Reason for Consultation: FAHEEM
Medical History
-
Chief Complaint: FAHEEM
History of Present Illness:
This is an 85-year-old gentleman who has atrial fibrillation on amiodarone therapy and Eliquis which is overall stable. He also is diabetes mellitus type 2 controlled with insulin therapy. He also has heart failure with preserved ejection fraction
on chronic diuretic therapy. He has had multiple issues with back pain and lower leg weakness for the last several months. Imaging studies had shown compression fractures as well as stenosis. He has undergone physical therapy. His adduction
weakness however has continued to worsen with persistent falls. He also reports incontinence of bowel and bladder as well as the sensation that he is not emptying his bladder completely. Given the worsening weakness he came to the emergency room.
He was noted to be significant anemic. He also had acute kidney injury with a creatinine of 3.0 upon his baseline of 1.4. He also had hyponatremia and metabolic acidosis. He does report that with all these issues his appetite has been poor he has
not been eating or drinking very much. He denies orthostasis
Past Medical History
ASCVD
Chronic HFpEF
s/p TAVR
Heart Block s/p PPM
Atrial Fibrillation
Hypothyroidism
ILD
Chronic Hypoxemia (Nocturnal O2 at Home)
COPD
Hypertension
CKD III
Anemia of Chronic Disease
DM-II
Pancreatic Insufficiency
Dementia
PTCA with Stent
TAVR
PPM Placement
Right FELIPA
Cataracts
Social History
Tobacco: Former Smoker
Alcohol: Former
Family History
Family History: Not Pertinent
Allergies / Home Medications
Allergy/AdvReac Type Severity Reaction Status Date / Time
No Known Allergies Allergy Verified 04/05/25 00:35
�Medication �Instructions �Recorded �Confirmed �Type
cyanocobalamin (vitamin B-12) 1,000 mcg PO QPM Supplement 01/13/20 10/05/25 History
1,000 mcg tablet
levothyroxine 175 mcg tablet 175 mcg PO DAILY Thyroid 01/13/20 10/05/25 History
sertraline 50 mg tablet 50 mg PO HS Mental Health/Anxiety 01/13/20 08/02/25 History
pantoprazole 40 mg tablet,delayed 40 mg PO QPM Gastrointestinal issue 05/15/20 10/05/25 History
release
budesonide 0.5 mg/2 mL suspension 0.5 mg (2 mL) inhalation R BID 30 05/07/21 10/05/25 Rx
for nebulization days ##2
magnesium oxide 400 mg PO QPM Supplement 03/15/22 10/05/25 History
azithromycin 250 mg tablet 250 mg PO QPM Infection 05/25/24 10/05/25 History
(Zithromax)
donepezil 10 mg tablet 10 mg PO HS Mental Health/Anxiety 05/25/24 10/05/25 History
ipratropium 0.5 mg-albuterol 3 mg 3 ml inhalation R TID 05/25/24 10/05/25 History
(2.5 mg base)/3 mL nebulization Lung/Breathing Issues
soln
prednisone 10 mg tablet 10 mg PO DAILY Anti-Inflammatory 05/25/24 10/05/25 History
vitamins A,C,T-xhcx-ilxckl 2,148 1 tab PO BID Supplement 05/25/24 10/05/25 History
mcg-113 mg-45 mg-17.4 mg tablet
(PreserVision AREDS)
cholecalciferol (vitamin D3) 25 50 mcg PO QPM Supplement 06/17/24 10/05/25 History
mcg (1,000 unit) tablet
apixaban 2.5 mg tablet (Eliquis) 2.5 mg PO BID 30 days #60 tabs 06/22/24 10/05/25 Rx
doxazosin 1 mg tablet 3 mg (3 x 1 mg) PO HS 30 days #90 06/22/24 10/05/25 Rx
tabs
amiodarone 200 mg tablet (Pacerone) 200 mg PO DAILY AFIB 04/05/25 10/05/25 History
atorvastatin 40 mg tablet (Lipitor) 40 mg PO HS High Cholesterol 04/05/25 10/05/25 History
metoprolol succinate 25 mg 25 mg PO BID Blood Pressure 04/05/25 10/05/25 History
tablet,extended release 24 hr
iudxfg-huidyrkl-tuhnsx(pork)24,000-76,000-120,000 2 cap PO MEALS Gastrointestinal 07/15/25 10/05/25 History
unit capsule,del rel (Creon) Issue
potassium chloride 20 mEq 20 meq PO BID #0 tabs 07/22/25 10/05/25 Rx
tablet,extended release(part/cryst)
bisacodyl 10 mg rectal suppository 10 mg ME DAILY PRN no bm x 8h post 08/02/25 10/05/25 History
(Dulcolax (bisacodyl)) MOM
guaifenesin 600 mg tablet, 600 mg PO BID Cough 08/02/25 10/05/25 History
extended release 12 hr
insulin aspart U-100 100 unit/mL 0 - 6 sliding scale dose SC AC 08/02/25 10/05/25 History
(3 mL) subcutaneous pen (Novolog Diabetes
FlexPen U-100 Insulin aspart)
qmsrve-mltwlfhl-manyby(pork)24,000-76,000-120,000 1 cap PO TIDPRN PRN SNACKS 08/02/25 10/05/25 History
unit capsule,del rel (Creon)
metolazone 5 mg tablet 2.5 mg PO 4-8XD Fluid 08/02/25 10/05/25 History
Retention/Swelling
acetaminophen 325 mg tablet (Pain 650 mg PO Q6HPRN PRN mild pain/ 10/05/25 10/05/25 History
Relief (acetaminophen)) fever>100.5F
furosemide 80 mg tablet (Lasix) 60 mg PO BID 10/05/25 10/05/25 History
Physical Exam
Vital Signs
Vital Signs
Temp Pulse Resp BP Pulse Ox
98.3 F 72 16 114/47 98
10/05/25 07:43 10/05/25 09:23 10/05/25 07:22 10/05/25 09:23 10/05/25 07:22
Lab Results
WBC 26.7 10^3/uL (4.8-10.8) H 10/05/25 06:19
RBC 2.47 10^6/uL (4.70-6.10) L 10/05/25 06:19
Plt Count 178 10^3/uL (130-400) 10/05/25 06:19
Sodium 136 mmol/L (135-145) 10/05/25 06:19
Potassium 3.8 mmol/L (3.5-5.1) 10/05/25 06:19
Chloride 110 mmol/L (98-107) H 10/05/25 06:19
Carbon Dioxide 19 mmol/L (22-30) L 10/05/25 06:19
BUN 100 mg/dl (9-20) H 10/05/25 06:19
Creatinine 2.9 mg/dL (0.7-1.3) H 10/05/25 06:19
eGFR 20.55 10/05/25 06:19
Glucose 81 mg/dl (70-99) 10/05/25 06:19
Calcium 7.0 mg/dl (8.4-10.2) L 10/05/25 06:19
Kcf-P-Bdywrorollr Pept 6900 pg/ml 10/05/25 00:34
Albumin 2.4 g/dl (3.5-5.0) L 10/04/25 22:32
Laboratory Tests
08/03/25 08/06/25 10/04/25
04:59 07:16 22:32
Hgb 9.4 L
Sodium 138 129 L
Creatinine 1.3
CT CAP s IV 10/05/25
IMPRESSION:
1. Left upper lobe pulmonary mass highly suspicious for neoplasm.
2. Smaller part solid right upper lobe opacity, possibly infectious/inflammatory versus metastasis.
3. Slightly prominent mediastinal and bilateral hilar lymph nodes suspected, possibly reactive or metastatic.
4. Small bilateral pleural effusions.
5. Probable acute or subacute chalk stick fracture at T9-10. Cannot rule out underlying discitis osteomyelitis at this level. Recommend further evaluation with dedicated MRI.
Physical Exam
Patient is awake alert oriented and in no distress. Mood and affect were pleasant, insight and judgment were good. Pupils are equal round and reactive to light, extraocular movements are intact, sclera were anicteric. Hearing was normal, ears and
nose are intact. Oropharynx was clear. Neck was supple with trachea midline and no thyromegaly. Heart was regular rate and rhythm without rubs. Lower extremities with 3+ to the thighs edema. Lungs were coarse to auscultation bilaterally and with
normal excursion. Abdomen was soft, nontender, with normal active bowel sounds, and no hepatosplenomegaly. Skin was without rash and with normal turgor.
Data Reviewed
-
CT Scan: Report Reviewed by me
Medical Tests (Nuc Med, Echo etc): Image Personally Visualized and interpreted (10/05/25 EKG by my reading AV paced) and Report Reviewed by me (04/05/25 Echo 60% EF severe MS)
Labs: Labs Reviewed by me
Old Records: Reviewed
Assessment/Plan
-
Assessment
Back pain
LE weakness
bowel/bladder incontinence
FAHEEM
CKD3a 1.4
severe MS
PAFib
TAVR
COPD
DM2
edema
metabolic acidosis NAG
Plan
Workup severe edema as well as hypoalbuminemia. Lets evaluate for nephrotic syndrome
Follow-up BMP
For MRI to evaluate spine and cauda equina syndrome
Given his poor oral intake as well as dry mucous membranes I would continue with IV fluids at this time
FAHEEM is likely prerenal
[2025-10-05 09:38] LABS: Glucose - Point of Care 96 mg/dl (70-99)
--- NOTE | 2025-10-05 10:10 | PTCARENOTE ---
Labs sent as ordered. Pt on bedpan for small amt of soft light tannish stool -no overt blood but heme (+). Isaura care given. Repositioned.
[2025-10-05 10:13] LABS: Glycohemoglobin (HgbA1c) 6.6 % (4.0-5.9)
[2025-10-05 10:23] LABS: Hematocrit 24.6 % (39.0-52.0); Hemoglobin 7.3 g/dL (13.0-18.0)
--- NOTE | 2025-10-05 10:55 | WOUNDNOTE ---
RIGHT LOWER LEG
--- NOTE | 2025-10-05 10:56 | WOUNDNOTE ---
LEFT LATERAL HEEL
--- NOTE | 2025-10-05 10:56 | WOUNDNOTE ---
LEFT LATERAL HEEL
--- NOTE | 2025-10-05 10:57 | WOUNDNOTE ---
RIGHT ANTERIOR FOREARM
--- NOTE | 2025-10-05 10:58 | WOUNDNOTE ---
RIGHT LATERAL FOREARM
--- NOTE | 2025-10-05 11:00 | PTCARENOTE ---
Dilaudid 0.5 mg IV given for 07/10 Lower back/bilat thigh and L ankle pain. Repositioned. Taking sips of water. Labs sent at [address] Foy. Hgb 7.3 currently
--- NOTE | 2025-10-05 11:00 | WOUNDNOTE ---
LEFT UPPER POSTERIOR ARM
--- NOTE | 2025-10-05 11:05 | WOUNDNOTE ---
[facility] RN note: Patient admitted with sepsis and fracture of thoracic spine s/p fall.
See H&P for complete history.
PMH:NIDDM, renal insufficiency, CAD, COPD, HTN, valvular disease, anxiety, cirrhosis of liver, LE edema (he wears compression stockings at home), a fib (Eliquis), pancreatic insufficiency, LAD stent, pacer, TAVR, former smoker, colon resection.
Wound Location and type/assessment: Patient last seen, 08/03/25 for same multiple skin tears on arms and legs, all shallow with scant drainage. Log rolled patient with 3 assist. Sacral stage 2 PI, scant drainage. patient assessed along with Dr. Cherry.
R Heel intact and blanchable. L lateral heel with blood blister, suspect evolving DTI. Groin with MASD. L leg with dried linear scabs, suspect from Tubigrip being too tight. Dry flaky skin on legs.
Appetite: good.
Pressure redistribution devices in place: Air mattress. Air chair cushion. Pillows under calves.
Plan: Local wound care done, will order mineral oil for legs. Leg elevation when sitting. Repositioned patient onto R semi side lying position. Pressure ulcer prevention measures reviewed with patient. States he understands.
Care plan to be updated and will follow as needed.
Note to case management of equipment requested for discharge: VN if goes home.
Recommend follow up at wound care center upon discharge.
--- NOTE | 2025-10-05 11:25 | CON.CAR ---
Addendum entered and electronically signed by Mahamed Burris DO 10/05/25 15:17:
I saw and examined the patient.
The Automotive Instructor's note was reviewed and I agree with the note.
Comment:
Plan:
Patient presented with weakness, lethargy, back pain in setting of multiple recent trip and fall events. noted to have subacute compression fractures of thoracic and lumbar spine. spine has been consulted for evaluation
also with acute on chronic leukocytosis and low grade temp, being worked up for acute infectious process by primary service.
Significant anemia with hemoglobin 7 on arrival and heme positive. Eliquis is held.
Consider transfusion. Daughter had discussed stopping anticoagulation as an patient due to recent falls.
Chest x-ray with evidence of left upper and right upper lobe lung masses with hilar lymph node involvement concerning for mets. Defer to primary service and shoe salesman for workup and evaluation.
Cardiology was consulted for concern for possible cardiorenal syndrome and potential heart failure. The patient has had preserved EF by last echo but does have moderate to severe mitral stenosis. Would repeat this to reevaluate left ventricular
systolic function and degree of mitral stenosis. Previous discussion regarding TMVR however patient is a candidate for this
Patient is currently getting IV fluid for renal failure. Monitor volume status closely.
proBNP is elevated at [address] shows small B/L pleural effusions. His lower extremity edema has worsened despite recent adjustment of diuretic therapy including Lasix 60 mg twice daily and Zaroxolyn 2.5 mg Friday and Friday. His edema is
likely multifactorial including sedentary lifestyle secondary to his significant back issues.
Remains AV paced on telemetry. Continue outpatient amiodarone.
His daughter Yolanda is an RETAIL SECURITY PROFESSIONAL and there has been some discussion of hospice in the past. Goals of care discussions ongoing.
He is DNR
Prognosis is extremely poor.
Original Note:
Consultation
Consultation Request
Date/Time Consultation Performed: 10/05/25
Requesting Provider: Dr. Basurto
Performing Provider: Latasha Hendricks PA-C for Dr. Burris
Reason for Consultation: CHF
Medical History
-
Chief Complaint: weakness
History of Present Illness:
Patient is an 85-year-old male well-known to our service with past medical history of heart failure with preserved ejection fraction, paroxysmal atrial fibrillation maintained on Eliquis and amiodarone, CAD, status post TAVR, dual-chamber
pacemaker, CKD, hypertension, type 2 diabetes, COPD who had admission to [facility] 07/2025, and 08/2025 for acute on chronic heart failure. He has also had multiple falls since that time with imaging showing evidence of thoracic and lumbar compression
fractures.Patient and family describe trip and fall episodes, deny LOC. Over the last several weeks his outpatient diuretic dosing has been uptitrated due to issues with weight gain/volume overload, however overall patient reports he has had weight
loss. Most recent diuretic regimen has been 60 mg p.o. Lasix twice daily with Zaroxolyn 2.5 mg Tuesdays and Fridays. Last evening he was brought to the ER due to worsening weakness. Daughter reports he has been sedentary in chair most of time.
He was noted to have low-grade temperature on arrival as well as leukocytosis. He was given antibiotics on arrival and is currently receiving IV fluids due to FAHEEM with creatinine of 3.0 on admission. Also noted to have hemoglobin of 7 and stool
was heme positive in ER. Chest CT shows evidence of new left upper lobe and right upper lobe mass also with concern for hilar lymph node involvement. proBNP elevated at 6900 and small bilateral pleural effusions noted by chest CT resulting in
cardiology consultation
PMHx/PSHx:
Falls with compression fractures
Chronic HFpEF
Paroxysmal atrial fibrillation
Chronic Eliquis anticoagulation
CAD
s/p BLADIMIR to mid LAD 01/13/2020
s/p BLADIMIR to prox LAD 06/21/2024s/p TAVR 26 mm Fleming Valve 05/11/2020
MS/MR, mild to mod by echo 2023
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
COPD, on nocturnal home O2
Carotid stenosis
Hypertension
Hyperlipidemia
LLE pain, thought to be neuropathic
Hypothyroidism
Type 2 DM
Renal insufficiency
Frequent PVCs, NSVT
DNR code status
Past Medical History
Past Medical History: Other (As above)
Past Surgical History: Other (TAVR, pacemaker, PTCA/stenting, right total hip arthroplasty, cataract surgery)
Social History
Tobacco: Former Smoker
Alcohol: Former
Personal:
Living: With Family ([facility] assisted living)
Family History
Family History: Reviewed & Not Pertinent
Allergies / Home Medications
Allergy/AdvReac Type Severity Reaction Status Date / Time
No Known Allergies Allergy Verified 04/05/25 00:35
�Medication �Instructions �Recorded �Confirmed �Type
cyanocobalamin (vitamin B-12) 1,000 mcg PO QPM Supplement 01/13/20 10/05/25 History
1,000 mcg tablet
levothyroxine 175 mcg tablet 175 mcg PO DAILY Thyroid 01/13/20 10/05/25 History
sertraline 50 mg tablet 50 mg PO HS Mental Health/Anxiety 01/13/20 08/02/25 History
pantoprazole 40 mg tablet,delayed 40 mg PO QPM Gastrointestinal issue 05/15/20 10/05/25 History
release
budesonide 0.5 mg/2 mL suspension 0.5 mg (2 mL) inhalation R BID 30 05/07/21 10/05/25 Rx
for nebulization days ##2
magnesium oxide 400 mg PO QPM Supplement 03/15/22 10/05/25 History
azithromycin 250 mg tablet 250 mg PO QPM Infection 05/25/24 10/05/25 History
(Zithromax)
donepezil 10 mg tablet 10 mg PO HS Mental Health/Anxiety 05/25/24 10/05/25 History
ipratropium 0.5 mg-albuterol 3 mg 3 ml inhalation R TID 05/25/24 10/05/25 History
(2.5 mg base)/3 mL nebulization Lung/Breathing Issues
soln
prednisone 10 mg tablet 10 mg PO DAILY Anti-Inflammatory 05/25/24 10/05/25 History
vitamins A,C,T-mxdt-lfiqpq 2,148 1 tab PO BID Supplement 05/25/24 10/05/25 History
mcg-113 mg-45 mg-17.4 mg tablet
(PreserVision AREDS)
cholecalciferol (vitamin D3) 25 50 mcg PO QPM Supplement 06/17/24 10/05/25 History
mcg (1,000 unit) tablet
apixaban 2.5 mg tablet (Eliquis) 2.5 mg PO BID 30 days #60 tabs 06/22/24 10/05/25 Rx
doxazosin 1 mg tablet 3 mg (3 x 1 mg) PO HS 30 days #90 06/22/24 10/05/25 Rx
tabs
amiodarone 200 mg tablet (Pacerone) 200 mg PO DAILY AFIB 04/05/25 10/05/25 History
atorvastatin 40 mg tablet (Lipitor) 40 mg PO HS High Cholesterol 04/05/25 10/05/25 History
metoprolol succinate 25 mg 25 mg PO BID Blood Pressure 04/05/25 10/05/25 History
tablet,extended release 24 hr
dafvkv-ttuyitcn-elugkc(pork)24,000-76,000-120,000 2 cap PO MEALS Gastrointestinal 07/15/25 10/05/25 History
unit capsule,del rel (Creon) Issue
potassium chloride 20 mEq 20 meq PO BID #0 tabs 07/22/25 10/05/25 Rx
tablet,extended release(part/cryst)
bisacodyl 10 mg rectal suppository 10 mg HI DAILY PRN no bm x 8h post 08/02/25 10/05/25 History
(Dulcolax (bisacodyl)) MOM
guaifenesin 600 mg tablet, 600 mg PO BID Cough 08/02/25 10/05/25 History
extended release 12 hr
insulin aspart U-100 100 unit/mL 0 - 6 sliding scale dose SC AC 08/02/25 10/05/25 History
(3 mL) subcutaneous pen (Novolog Diabetes
FlexPen U-100 Insulin aspart)
iqxdyf-hfyykypy-gfremj(pork)24,000-76,000-120,000 1 cap PO TIDPRN PRN SNACKS 08/02/25 10/05/25 History
unit capsule,del rel (Creon)
metolazone 5 mg tablet 2.5 mg PO 4-8XD Fluid 08/02/25 10/05/25 History
Retention/Swelling
acetaminophen 325 mg tablet (Pain 650 mg PO Q6HPRN PRN mild pain/ 10/05/25 10/05/25 History
Relief (acetaminophen)) fever>100.5F
furosemide 80 mg tablet (Lasix) 60 mg PO BID 10/05/25 10/05/25 History
Review of Systems
-
History Source: Patient and Family
All other systems: Negative unless noted
Physical Exam
Vital Signs
Temp Pulse Resp BP Pulse Ox
98.3 F 71 19 114/45 99
10/05/25 07:43 10/05/25 10:00 10/05/25 09:22 10/05/25 10:00 10/05/25 10:21
Lab Results
10/05/25 06:19
Troponin I 0.017 ng/ml 10/05/25 00:34
Hsm-O-Wrfwahepcmq Pept 6900 pg/ml 10/05/25 00:34
Physical Exam
General: No Apparent Distress, Comfortable and Other (chronically ill appearing. on supp O2)
HEENT: Normocephalic and Moist Mucous Membranes
Respiratory: Crackles (few) and Non Labored Respirations
Cardiac: S1/S2, Regular Rhythm and Murmur
GI: Soft, Non Tender, Non Distended and Normal Bowel Sounds
Musculoskeletal: No Clubbing, No Cyanosis and Edema (2-3+ dependent edema of B/L LE)
Skin: Warm, Dry and Other (multiple dressings for skin tears)
Neuro: Awake, Alert and Oriented (to self, place, but confused at times)
Impression / Plan
-
.
PCP: Dr. Dexter Meng
Primary Stitch Cleaner: Dr. Deana Palomino
Impression:
Presented 08/02/2025 with lethargy, weakness
Acute on chronic leukocytosis
Concern for sepsis
Acute anemia, heme +
MILA mass, RUL mass, concern for hilar LN mets by chest CT
Concern for acute on chronic HFpEF
Lethargy
FAHEEM on CKD 3a
Recent falls with thoracic and lumbar compression fractures
Recent admission for acute HF, presented with edema/anasarca 07/15/25
Recent gout flare
Paroxysmal atrial fibrillation
Chronic Eliquis anticoagulation
CAD
s/p BLADIMIR to mid LAD 01/13/2020
s/p BLADIMIR to prox LAD 06/21/2024
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
MS/MR, mild to mod by echo 2023
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
COPD
Chronic prednisone
Carotid stenosis
Neuropathic pain left lower extremity
gout
Hypertension
Hyperlipidemia
Hypothyroidism
Type 2 DM
Renal insufficiency
Frequent PVCs, NSVT
DNR code status
Echo 06/18/2024: EF 50 to 55%, stage II diastolic dysfunction, mild to moderate MS with peak/mean gradient 16/8 mmHg, moderate MR, severely dilated left atrium, status post number 26 mm TAVR with peak/mean gradients of 25/17 mmHg, trace AR, trace TR,
PAP 30 mmHg
ECHO 04/05/2025: EF 60 to 65%, no regional wall motion abnormalities noted, mild concentric LVH, moderate to severe MS with peak/mean gradients 26/13 mmHg, Fleming ROSARIO #26 TAVR with peak/mean gradients 37/22 mmHg, trace TR, PAP 50 to 55 mmHg
Plan:
-patient presented with weakness, lethargy, back pain in setting of multiple recent trip and fall events.
-noted to have subacute compression fractures of thoracic and lumbar spine. spine has been consulted for evaluation
-also with acute on chronic leukocytosis and low grade temp, being worked up for acute infectious process by primary service
-hgb 7 on arrival and tested heme positive. marcellus on hold, and daughter had discussed stopping as OP due to recent falls. defer need for transfusion to primary service
-chest CT also showed evidence of MILA and RUL lung mass/opacity with hilar LN involvement with concern for mets vs inflammation.
-cardiology consulted due to concern for acute CHF and possible cardiorenal syndrome.
-EF preserved by most recent echo 04/05/25, but does have mod to severe MS. will repeat to reassess EF, MS. of note, there was discussion regarding TMVR in past however not felt to be present candidate.
-proBNP is elevated at [address] shows small B/L pleural effusions. currently receiving IVF due to concern for septic presentation with leukocytosis, low grade temp, etc. his OP diuretic dose has been increasing in OP setting due to
worsening LE edema, most recently on po lasix 60mg BID and zaroxolyn 2.5mg TuFr.
-Cr is 2.9 on 10/05. he has known CKD with recent worsening of baseline renal disease.
-av paced on tele. continue OP amio
-had discussion with patient, as well as daughter Yolanda, who is an RETAIL SECURITY PROFESSIONAL, and at bedside. reviewed all of above. Courtney reports they had previously been discussing hospice however had not felt patient was ready. she will discuss with patient and
today as appears hospice is appropriate. he is a DNR.
-d/w nursing. updated primary primary teacher
Data Reviewed
-
EKG: Tracing Personally Visualized and interpreted
CT Scan: Report Reviewed by me
Medical Tests (Nuc Med, Echo etc): Report Reviewed by me
Labs: Labs Reviewed by me
Old Records: Reviewed
--- NOTE | 2025-10-05 11:40 | CON.NS ---
Consultation
-
Date/Time Consultation Performed: 11:40 am; 10/05/2025
Performing Provider: Kaia
Chief Complaint
History of Present Illness
This is a neurosurgical consultation on an 85-year-old with multiple comorbidities including congestive heart failure, ASCVD, atrial fibrillation on Eliquis, diabetes, who presented with back pain and lower extremity weakness. Symptoms have been
going on for approximately 2 months. He was diagnosed with a compression fracture at the beginning of August and was also treated for CHF exacerbation
His fracture was treated conservatively, with physical therapy.
He presents yesterday with lower extremity weakness, and several falls in the last several months. He denies any radiating pain into his legs. He does report numbness in his legs and decreased strength.
Yesterday afternoon, patient was unable to get up from a chair, prompting his to call 911. He was found to be febrile in the ER. Patient also reports bowel and bladder incontinence over the last month or so. Patient was also noted to have
elevated white cell count. CT of the abdomen/pelvis demonstrated known compression fractures. Patient was also found to be in acute kidney injury. Neurosurgery consulted for further input.Of note, white blood cell count was noted to be 32.3
yesterday, and only slightly down to 26.7 today.
Patient seen and examined. About to go down to MRI. Patient's , and daughter at bedside. They report that he, since and August, has had several falls, 1 being on 09/17/2025, where he tripped over all holes while he was working
with some tools in the garage, with significant progressive back pain. They also report that he has several open wounds that been weeping, including on his foot, as well as right elbow. These wounds been addressed with frequent wound changes/wound
care.
They also report that he has been having urinary changes with increased urination, and then subsequent retention.
Review of Systems
-
10 point review systems including constitutional, ENT, cardiovascular, respiratory, GI, , endocrinologic, hematologic, musculoskeletal, neurologic, was performed and was negative except for as stated in HPI.
Medication and Allergies
Home Medications
Home Medications
�Medication �Instructions �Recorded
cyanocobalamin (vitamin B-12) 1,000 mcg PO QPM Supplement 01/13/20
1,000 mcg tablet
levothyroxine 175 mcg tablet 175 mcg PO DAILY Thyroid 01/13/20
sertraline 50 mg tablet 50 mg PO HS Mental Health/Anxiety 01/13/20
pantoprazole 40 mg tablet,delayed 40 mg PO QPM Gastrointestinal issue 05/15/20
release
budesonide 0.5 mg/2 mL suspension 0.5 mg (2 mL) inhalation R BID 30 05/07/21
for nebulization days ##2
magnesium oxide 400 mg PO QPM Supplement 03/15/22
azithromycin 250 mg tablet 250 mg PO QPM Infection 05/25/24
(Zithromax)
donepezil 10 mg tablet 10 mg PO HS Mental Health/Anxiety 05/25/24
ipratropium 0.5 mg-albuterol 3 mg 3 ml inhalation R TID 05/25/24
(2.5 mg base)/3 mL nebulization Lung/Breathing Issues
soln
prednisone 10 mg tablet 10 mg PO DAILY Anti-Inflammatory 05/25/24
vitamins A,C,Q-zxdp-axaiup 2,148 1 tab PO BID Supplement 05/25/24
mcg-113 mg-45 mg-17.4 mg tablet
(PreserVision AREDS)
cholecalciferol (vitamin D3) 25 50 mcg PO QPM Supplement 06/17/24
mcg (1,000 unit) tablet
apixaban 2.5 mg tablet (Eliquis) 2.5 mg PO BID 30 days #60 tabs 06/22/24
doxazosin 1 mg tablet 3 mg (3 x 1 mg) PO HS 30 days #90 06/22/24
tabs
amiodarone 200 mg tablet (Pacerone) 200 mg PO DAILY AFIB 04/05/25
atorvastatin 40 mg tablet (Lipitor) 40 mg PO HS High Cholesterol 04/05/25
metoprolol succinate 25 mg 25 mg PO BID Blood Pressure 04/05/25
tablet,extended release 24 hr
byqpfy-poeqsurt-wpabsw(pork)24,000-76,000-120,000 2 cap PO MEALS Gastrointestinal 07/15/25
unit capsule,del rel (Creon) Issue
potassium chloride 20 mEq 20 meq PO BID #0 tabs 07/22/25
tablet,extended release(part/cryst)
bisacodyl 10 mg rectal suppository 10 mg [place] DAILY PRN no bm x 8h post 08/02/25
(Dulcolax (bisacodyl)) MOM
guaifenesin 600 mg tablet, 600 mg PO BID Cough 08/02/25
extended release 12 hr
insulin aspart U-100 100 unit/mL 0 - 6 sliding scale dose SC AC 08/02/25
(3 mL) subcutaneous pen (Novolog Diabetes
FlexPen U-100 Insulin aspart)
nrlnuu-tahzfnpl-pgkzlg(pork)24,000-76,000-120,000 1 cap PO TIDPRN PRN SNACKS 08/02/25
unit capsule,del rel (Creon)
metolazone 5 mg tablet 2.5 mg PO 4-8XD Fluid 08/02/25
Retention/Swelling
acetaminophen 325 mg tablet (Pain 650 mg PO Q6HPRN PRN mild pain/ 10/05/25
Relief (acetaminophen)) fever>100.5F
furosemide 80 mg tablet (Lasix) 60 mg PO BID 10/05/25
Allergies
Allergies
Allergy/AdvReac Type Severity Reaction Status Date / Time
No Known Allergies Allergy Verified 04/05/25 00:35
Physical Exam
-
Exam:
Awake, alert, conversant.
Cranial nerves II through XII are grossly intact.
Head is normocephalic, atraumatic
Breathing is nonlabored.
Patient with pacemaker.
Abdomen is soft.
Extremities are warm.
Right upper extremity is bandaged. Able to move bilateral upper extremities with spontaneous and symmetric strength. Antigravity.
Lower extremities: 5/5 strength bilaterally in lower extremities in all muscle groups.
Sensation to light touch is intact bilaterally in the upper and lower extremities.
Patient with significant pain with any movement. Both in the mid back, as well as low back.
CT of the chest/abdomen/pelvis performed on 10/05/2025 was reviewed. Images reports viewed interpreted by me. There appears to be compression deformity at L4 with height loss and retropulsion stable compared with previous MRI performed on 08/08/2025.
There also appears to be stable compression deformity at L1 when compared to previous MRI. There is evidence of mild splaying of the disc space at T9-T10 with some erosion of the T9 endplate noted. It is difficult to ascertain whether or not
chest x-ray lateral views from 07/15/2025 demonstrated this abnormality at T9-T10. 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
severe as most current CT study.
Per review of radiology note, patient also noted to have small bilateral pleural effusions, as well as a left upper lobe apical mass which is new from prior imaging studies. There is also right upper lobe opacity. There is also mediastinal,
bilateral hilar lymph nodes.
Problems
-
Problem Status Onset Code
Fracture of thoracic spine Acute S22.009A
Acute kidney injury Acute N17.9
Sepsis Acute A41.9
Assessment / Plan
-
This is an 85-year-old gentleman with multiple comorbidities, with known L4 compression fracture, diagnosed in early August 2025, who presents with elevated white blood cell count, fevers, as well as back pain, and? Lower extremity weakness.
On my examination, patient has 5/5 strength of bilateral lower extremities with intact sensation to light touch.
Imaging suggests possible new T9-T10 fracture, with possible lytic findings of the disc base at this level. Patient with stable findings at L4.
Patient has multiple sources of elevated white blood cell count including possible UTI, multiple open wounds, new diagnosis of upper lung lobe lesions. Weeping wound in lower extremity.
Spinal osteomyelitis/discitis versus fracture is in the differential,for patient's back pain.
Please obtain ESR, CRP in light of elevated white blood cell count.
Please obtain MRI of the thoracic, and lumbar spine with and without contrast.
Blood cultures, urine cultures, infectious workup? Oncologic workup given lung lesions as well,
Fit patient for TLSO brace for both mechanical support, pain control. Patient can utilize TLSO brace when he is upright and weightbearing.
Will follow-up after MRI performed.
Extensive discussion was held with the patient's family at bedside regarding possible etiologies for patient's back pain. All questions and concerns were answered and addressed.
--- NOTE | 2025-10-05 11:51 | CON.ID ---
Consultation
-
Date/Time Consultation Requested: October 05, 2025 0811
Date/Time Consultation Performed: October 05, 2025 1200
Requesting Provider: Dr. Tam Foy
Performing Provider: Dr. Silke Cherry
Reason for Consultation: Leg weakness
Chief Complaint / Past History
Chief Complaint
Severe back pain and weakness
History of Present Illness
85-year-old male with history of diabetes mellitus, ILD, COPD on nocturnal O2, A-fib, TAVR, heart failure with preserved EF, pacemaker placement, who presented to the ER October 04 due to worsening severe back pain and progressive weakness. Of
note patient was recently hospitalized August 02 - August 06 for CHF. Per medical record, patient was complaining of lumbar radiculopathy and placed on Lyrica. He then had a fall. Outpatient MRI of the lumbar spine without contrast on
October 08 showed severe subacute endplate fracture of L4 and complete vertebral body collapse with severe acute paraspinal soft tissue edema around L4 extending to the iliopsoas muscle, subacute fracture of the L5 spinous process, severe central
canal stenosis L3/L4. Patient continued to have worsening mid back pain. He has had multiple falls at home. He has been getting weaker. He was too weak to get up from the chair and therefore patient sent to the hospital. Rectal temperature
100.5. White count 32.3. CT of the chest/abdomen and pelvis showed left upper lobe mass suspicious for neoplasm with mediastinal and bilateral hilar lymph nodes. Blood cultures are pending. Patient denies fevers or chills at home. He reports
that he has been urinating well. No bowel issues. History his chief complaint is the back pain. No cough or shortness of breath. No chest pain. No rash. No recent weight loss.
Past History
Additional Past Medical History:
DM
dementia
HTN
ILD
COPD
Chronic hypoxemic failure on nocturnal O2
TAVR
Atrial fibrillation
CAD s/p stent
HFpEF
PPM
CKD3
Hypothyroidism
gout
R FELIPA
Allergy History:
No Known Allergies Allergy (Verified 04/05/25 00:35)
Medications Reviewed: Yes
Current Antibiotics:
Vancomycin x 1
Zosyn x 1
Social History
Tobacco: Former Smoker
Alcohol: Former
Drug: None
Personal:
Living: Other ([facility])
Family History
Family History: Not Pertinent
Review of Systems
Review of Systems
General: Change in Appetite; Negative Fever or Chills
HEENT: Negative Sinus Problems, Headache or Pharyngitis
Cardiovascular: Negative Chest Pain or Dyspnea
Respiratory: Negative Dyspnea, Cough or Hemoptysis
Gasteroenterology: Negative Nausea, Vomiting or Diarrhea
Genital / Urological: Negative Dysuria or Flank Pain
Endocrine: Weakness
All systems: All other systems were reviewed and were negative
Vital Signs
Temp Pulse Resp BP Pulse Ox
98.3 F 71 19 114/45 99
10/05/25 07:43 10/05/25 10:00 10/05/25 09:22 10/05/25 10:00 10/05/25 10:21
Selected Entries
10/05/25
00:45
Temp rectal 100.5 F H
Physical Exam
Physical Exam
Constitutional: Acutely Ill
Head: Other (No frontal or max or sinus tenderness)
Eyes: No Conjunctival Hemorrhage and Sclera Anicteric
Cardiovascular: Regular Rate, S1/S2 and Other (Pacemaker site no induration or erythema)
Pulmonary: Clear
Gastrointestinal: Soft, Non Tender, Non Distended and Normal Bowel Sounds
Genito-Urinary: Negative CVA Tenderness
Extremities: Edema and Pulses
Musculoskeletal: Spinal Tenderness (Mid back)
Wound: Other (Multiple skin tears. On coccyx- superficial wound.)
Neurological: Awake, Alert and Other (Able to move bilateral LE.)
Lab / Diagnostic Study Results
10/05/25 06:19
Abs Immat Gran (auto) 0.5 10^3/uL (0-0.05) H 10/04/25 22:32
Absolute Neuts (auto) 30.7 10^3/uL (1.4-6.5) H 10/04/25 22:32
Absolute Lymphs (auto) 0.4 10^3/uL (1.2-3.4) L 10/04/25 22:32
Absolute Monos (auto) 0.7 10^3/uL (0.1-0.6) H 10/04/25 22:32
Absolute Basos (auto) 0.0 10^3/uL (0-0.2) 10/04/25 22:32
Immature Gran % 1.5 % (0-0.5) H 10/04/25 22:32
Neutrophils % 95.3 % (42.2-75.2) H 10/04/25 22:32
Lymphocytes % 1.1 % (20.5-51.1) L 10/04/25 22:32
Monocytes % 2.0 % (1.7-9.3) 10/04/25 22:32
Eosinophils % 0.0 % (0-6) 10/04/25 22:32
Basophils % 0.1 % (0-2) 10/04/25 22:32
Lactic Acid 1.0 mmol/L (0.7-2.0) 10/05/25 01:31
Ur Squamous Epith Cells 3-5 /LPF (Few) 10/05/25 00:34
Microbiology Results
Micro:
10/05/25 02:24 Blood Culture - Pending
Blood/Venous
10/05/25 01:31 Blood Culture - Pending
Blood/Venous
10/05/25 00:34 Influenza Types A & B (JOSEPHINE) - Final
Nasal Swab Negative for Influenza A & B, NAAT
Negative results must be combined with clinical observations
and patient history.
Nucleic Acid Amplification test (NAAT)performed on the
[employer] NOW platform.
10/05/25 00:34 Urine Culture - Pending
Urine
10/05/25 MRI of the thoracic and lumbar spine without and with contrast: MR findings highly suggestive of discitis/osteomyelitis at T9-10. There is enhancing intermediate T1-weighted signal anteriorly compatible with paraspinal phlegmon. Of note,
the posterior aspect of the disc space is not involved, and there is no evidence for extension into the spinal canal, with no evidence for epidural abscess or phlegmon. Compression deformities involving L1 and L4
10/05/25 CT C/A/P:
1. Left upper lobe pulmonary mass highly suspicious for neoplasm.
2. Smaller part solid right upper lobe opacity, possibly infectious/inflammatory versus metastasis.
3. Slightly prominent mediastinal and bilateral hilar lymph nodes suspected, possibly reactive or metastatic.
5. Probable acute or subacute fracture at T9-10. Cannot rule out underlying discitis osteomyelitis at this level. Recommend further evaluation with dedicated MRI.
10/05/[address]: No acute intracranial abnormality noted.
Assessment / Plan
# T9-T10 discitis/osteomyelitis with paraspinal phlegmon
# Leukocytosis
# Incidental finding of lung mass suspicious for neoplasm
# FAHEEM
- No surgical intervention per neurosurgery.
- Await blood culture results.
- If blood cultures negative, recommend IR biopsy for cultures.
- Patient hemodynamically stable, will hold antibiotic at this time until after biopsy and or positive blood cultures.
- Follow white count.
Conditions present on admission:
DM
dementia
HTN
ILD
COPD
Chronic hypoxemic failure on nocturnal O2
TAVR
Atrial fibrillation
CAD s/p stent
HFpEF
PPM
CKD3
Hypothyroidism
gout
R FELIPA
Care Review
Plan reviewed with: Physician (Kaia Garza)
[2025-10-05 12:18] LABS: Glucose - Point of Care 100 mg/dl (70-99)
--- NOTE | 2025-10-05 12:20 | PTCARENOTE ---
Overall assessment is unchanged. VS as documented. C/O lower back as well as L ankle and bilat thigh discomfort- mostly with movement. Denies shortness of breath. Voiding via male purewick- new canister placed and urine studies collected after pt
voided. Pt then taken via bed/monitor to MRI. Dr. Foy updated on pt. Once in MRI- pacer placed in MRI mode D00 [id number]. See MRI paperwork.
[2025-10-05] MEDS: DILAUDID 0.25 MG IV (13:45)
--- NOTE | 2025-10-05 14:00 | PTCARENOTE ---
MRI completed at 1345- Pt did tolerate procedure but is now c/o back pain. Medicated with Dilaudid 0.25mg IV at 1345 prior to coming back from MRI. Transported back to ICU on the monitor and currently back in his room. Turned and repositioned. Male
purewick reattached to suction. Voiding yellow cloudy yellow urine. NSS at 70 ml/hr via LAC IV. Call mcclure in reach.
--- NOTE | 2025-10-05 14:30 | PTCARENOTE ---
Sats are 98%- will decrease pt to 1L nc
--- NOTE | 2025-10-05 14:30 | PTCARENOTE ---
O2 decreased to 1L nc with sats of 97%. Fiber filled heel boots placed on pt.
--- NOTE | 2025-10-05 15:21 | CON.GI ---
Consultation
-
Date/Time Consultation Requested: 10/05/25 at 11am
Date/Time Consultation Performed: 10/05/25 at 3pm
Requesting Provider: yaneth
Performing Provider: pineda
Reason for Consultation: hgb drop
Medical History
Chief Complaint / HPI
Chief Complaint: hgb drop
History of Present Illness:
This patient is an 85-year-old man with multiple medical history including A-fib on Eliquis, diabetes, lower extremity weakness and new lung lesions. He does have severe lumbar stenosis. He was admitted for weakness thought to be due to lower
spinal stenosis progressing. His WBC was elevated and he had a low grade temp. Labs drawn showed a hemoglobin in the low sevens. It was repeated and is the same. He did have a baseline of 9.3 on his last admission for CHF last month.
Interestingly enough he did not have any labs drawn for 3 days after his admission and I do not know where his hemoglobin was at the end of that admission. He denies any abdominal pain or bleeding. He did get a dose of IV iron on last admission
according to his daughter who is a CORPORATE COORDINATOR.
Past Medical History
Past Medical History: Other (Atrial fibrillation, history of TAVR, CHF, hypothyroidism, COPD, dementia)
Past Surgical History: Other (Pacemaker, total hip)
Social History
Tobacco: Former Smoker
Alcohol: Former
Family History
Family History: Reviewed & Not Pertinent (except what is in hpi, lower leg weakness)
Allergies / Home Medications
Allergy/AdvReac Type Severity Reaction Status Date / Time
No Known Allergies Allergy Verified 04/05/25 00:35
�Medication �Instructions �Recorded
cyanocobalamin (vitamin B-12) 1,000 mcg PO QPM Supplement 01/13/20
1,000 mcg tablet
levothyroxine 175 mcg tablet 175 mcg PO DAILY Thyroid 01/13/20
sertraline 50 mg tablet 50 mg PO HS Mental Health/Anxiety 01/13/20
pantoprazole 40 mg tablet,delayed 40 mg PO QPM Gastrointestinal issue 05/15/20
release
budesonide 0.5 mg/2 mL suspension 0.5 mg (2 mL) inhalation R BID 30 05/07/21
for nebulization days ##2
magnesium oxide 400 mg PO QPM Supplement 03/15/22
azithromycin 250 mg tablet 250 mg PO QPM Infection 05/25/24
(Zithromax)
donepezil 10 mg tablet 10 mg PO HS Mental Health/Anxiety 05/25/24
ipratropium 0.5 mg-albuterol 3 mg 3 ml inhalation R TID 05/25/24
(2.5 mg base)/3 mL nebulization Lung/Breathing Issues
soln
prednisone 10 mg tablet 10 mg PO DAILY Anti-Inflammatory 05/25/24
vitamins A,C,A-gfkj-jikjdy 2,148 1 tab PO BID Supplement 05/25/24
mcg-113 mg-45 mg-17.4 mg tablet
(PreserVision AREDS)
cholecalciferol (vitamin D3) 25 50 mcg PO QPM Supplement 06/17/24
mcg (1,000 unit) tablet
apixaban 2.5 mg tablet (Eliquis) 2.5 mg PO BID 30 days #60 tabs 06/22/24
doxazosin 1 mg tablet 3 mg (3 x 1 mg) PO HS 30 days #90 06/22/24
tabs
amiodarone 200 mg tablet (Pacerone) 200 mg PO DAILY AFIB 04/05/25
atorvastatin 40 mg tablet (Lipitor) 40 mg PO HS High Cholesterol 04/05/25
metoprolol succinate 25 mg 25 mg PO BID Blood Pressure 04/05/25
tablet,extended release 24 hr
gpkquh-hwnqxdvs-oolinh(pork)24,000-76,000-120,000 2 cap PO MEALS Gastrointestinal 07/15/25
unit capsule,del rel (Creon) Issue
potassium chloride 20 mEq 20 meq PO BID #0 tabs 07/22/25
tablet,extended release(part/cryst)
bisacodyl 10 mg rectal suppository 10 mg [place] DAILY PRN no bm x 8h post 08/02/25
(Dulcolax (bisacodyl)) MOM
guaifenesin 600 mg tablet, 600 mg PO BID Cough 08/02/25
extended release 12 hr
insulin aspart U-100 100 unit/mL 0 - 6 sliding scale dose SC AC 08/02/25
(3 mL) subcutaneous pen (Novolog Diabetes
FlexPen U-100 Insulin aspart)
eiuezr-iadwdwtq-mwmfjt(pork)24,000-76,000-120,000 1 cap PO TIDPRN PRN SNACKS 08/02/25
unit capsule,del rel (Creon)
metolazone 5 mg tablet 2.5 mg PO 4-8XD Fluid 08/02/25
Retention/Swelling
acetaminophen 325 mg tablet (Pain 650 mg PO Q6HPRN PRN mild pain/ 10/05/25
Relief (acetaminophen)) fever>100.5F
furosemide 80 mg tablet (Lasix) 60 mg PO BID 10/05/25
Review of Systems
-
All other systems: A 12 pt ROS was Negative except as stated above in HPI (except what was in HPI)
Vital Signs
Temp Pulse Resp BP Pulse Ox
98.9 F 70 14 104/49 96
10/05/25 11:55 10/05/25 15:00 10/05/25 15:00 10/05/25 15:00 10/05/25 15:00
Physical Exam
Exam
General: No Apparent Distress
Cardiac: S1/S2
GI: Soft and Non Tender
Musculoskeletal: Other (weak lower legs, in compression boots)
Skin: Warm
Psych: Calm
Results
WBC 26.7 10^3/uL (4.8-10.8) H 10/05/25 06:19
Hgb 7.3 g/dL (13.0-18.0) L 10/05/25 10:07
Hct 24.6 % (39.0-52.0) L 10/05/25 10:07
MCV 91.9 fL (80.0-94.0) 10/05/25 06:19
Plt Count 178 10^3/uL (130-400) 10/05/25 06:19
Absolute Neuts (auto) 30.7 10^3/uL (1.4-6.5) H 10/04/25 22:32
Sodium 136 mmol/L (135-145) 10/05/25 06:19
Potassium 3.8 mmol/L (3.5-5.1) 10/05/25 06:19
Chloride 110 mmol/L (98-107) H 10/05/25 06:19
Carbon Dioxide 19 mmol/L (22-30) L 10/05/25 06:19
BUN 100 mg/dl (9-20) H 10/05/25 06:19
Creatinine 2.9 mg/dL (0.7-1.3) H 10/05/25 06:19
Calcium 7.0 mg/dl (8.4-10.2) L 10/05/25 06:19
Total Bilirubin 0.4 mg/dl (0.2-1.3) 10/04/25 22:32
AST 12 U/L (17-59) L 10/04/25 22:32
ALT 13 U/L (0-50) 10/04/25 22:32
Alkaline Phosphatase 99 U/L (38-126) 10/04/25 22:32
Lipase < 10 U/L (23-300) L 10/04/25 22:32
Assessment / Plan
-
This patient is an 85-year-old man with multiple medical problems that have progressed. He has progressive weakness due to lower spinal stenosis, acute renal insufficiency with an increasing BUN and creatinine, new lung lesions and a history of
CHF. He does have stable anemia and is heme positive. For now do the following:
1. I do think his anemia is multifactorial. I also do think that he may not have dropped suddenly as we do not have labs towards the end of his last admission. Iron studies are again low. May need another dose of IV iron, heme onc already going
to see him for new lung lesions and can determine if necessary.
2. He should be on GI prophylaxis with a PPI bid to prevent/treat stress gastritis
3. I would not intervene with any scopes at this time. He is quite ill in the ICU and he does not have overt bleeding.
I did d/w the daughter and .
will sign off call if overt bleeding
-
-
Thank you for consultation and allowing me to participate in the patient's care. Please call the endodontic assistant GI physician during the after hours with any questions or concerns.
[2025-10-05 16:30] LABS: Glucose - Point of Care 103 mg/dl (70-99)
--- NOTE | 2025-10-05 17:20 | PTCARENOTE ---
Remains resting. Eating some dinner- no difficulty noted with swallowing but his dentures do not fit- has the lower denture in but needed to take the top denture out as it kept falling and he could not eat with it in. Appetite limited although
denies nausea. VS as documented. Remedicated with Dilaudid 0.5 mg IV for 8 lower back and L ankle pain. L ankle area sl pink and warm but no warmer than the rest of skin.Tolerating 1L nc. Voiding cloudy yellow urine via male purewick.
Repositioned. Does have a lot of pain with any positioning but once settled is a little better. and daughter at the bedside. Call mcclure in reach. Labs sent. .
[2025-10-05 17:21] LABS: Hematocrit 24.5 % (39.0-52.0); Hemoglobin 7.3 g/dL (13.0-18.0)
--- NOTE | 2025-10-05 17:37 | CM ---
Initial assessment completed with patient who lives with his in a 1 story [place] at [facility], 1 step to enter. 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 He does drive. He
uses O2 at HS@ 2L through [employer]. He also has a SC. He has current services with [facility] for RN, PT/OT. He does have a HC-POA. Was in the [employer] but does not have VA benefits. No psychiatric hospitalizations. PCP is Dr. Dexter Meng.
Pharmacy is [facility] in [place]. Discharge POC: TBD. Await therapy eval when able. [facility] referral placed.
[2025-10-05 17:57] LABS: C-Reactive Protein 226.20 mg/L (0.0-10.00)
--- NOTE | 2025-10-05 18:18 | PTCARENOTE ---
Dozing post Dilaudid. No changes in assessment. Dr. Foy updated on HH of 7.3. Pt for transfer to [facility]-
--- NOTE | 2025-10-05 19:00 | PTCARENOTE ---
Pt changed to RA - sats are 96%
--- NOTE | 2025-10-05 19:04 | PTCARENOTE ---
Report given to IMU staff. Will transfer pt via bed. No other changes.
--- NOTE | 2025-10-05 20:20 | SUR.OPER ---
Pt received in bed as a transfer from ICU at 1930. Pt AV paced on monitor. Vitals stable. 95% on room. Pt with NS at 70 through LAC. 1999 medications given. Pt oriented and pleasant. Pt does has multiple skin wounds that WOC assessed and covered
today. Pt repositioned. Male purewick maintained. Instructed pt to ring for any assistance needed. Alarm on for safety.
[2025-10-05 21:53] LABS: Glucose - Point of Care 164 mg/dl (70-99)
[2025-10-05] MEDS: CARDURA 3 MG PO (22:20)
[2025-10-05] MEDS: LIPITOR 40 MG PO (22:21)
[2025-10-05] MEDS: ARICEPT 10 MG PO (22:21)
[2025-10-06] VITALS (25 sets, daily range): BP systolic 90–117; BP diastolic 36–65; BMI 24.0
[2025-10-06] MEDS: DILAUDID 0.5 MG IV ×5 (02:51→21:58)
[2025-10-06] MEDS: SYNTHROID 175 MCG PO (05:11)
[2025-10-06 05:59] LABS: Hematocrit 23.4 % (39.0-52.0); Hemoglobin 7.1 g/dL (13.0-18.0); Mean Corp Hgb Conc. 30.3 g/dL (33.0-37.0); Mean Corpuscular Volume 90.7 fL (80.0-94.0); Platelet Count 206 10^3/uL (130-400); Red Cell Dist. Width 17.2 % (11.5-14.5)
[2025-10-06 06:17] LABS: Blood Urea Nitrogen 105 mg/dl (9-20); Calcium 7.5 mg/dl (8.4-10.2); Carbon Dioxide 17 mmol/L (22-30); Chloride 112 mmol/L (98-107); Glucose 88 mg/dl (70-99); Magnesium 2.4 mg/dl (1.6-2.3); Potassium 3.8 mmol/L (3.5-5.1); Sodium 135 mmol/L (135-145)
[2025-10-06 06:22] LABS: Estimated Creatinine Clearance 21 ml/min; eGFR 22.40
[2025-10-06 07:00] LABS: Nucleated Red Blood Cells % 0 % (-)
[2025-10-06 07:58] LABS: Glucose - Point of Care 104 mg/dl (70-99)
[2025-10-06] MEDS: PULMICORT 0.5 MG INH ×2 (08:01→19:24)
[2025-10-06 08:31] LABS: Albumin 2.0 g/dl (3.5-5.0)
[2025-10-06] MEDS: NSS (PRESERVATIVE FREE) 10 ML IV ×2 (08:38→22:02)
[2025-10-06] MEDS: NSS 1000 IV ×3 (08:38→23:57)
[2025-10-06] MEDS: PROTONIX IV 40 MG IV ×2 (08:38→22:02)
[2025-10-06] MEDS: DELTASONE 10 MG PO (08:39)
[2025-10-06] MEDS: TOPROL XL 25 MG PO (08:39)
[2025-10-06] MEDS: PACERONE 200 MG PO (08:39)
[2025-10-06] MEDS: HYDROPHOR 1 APPLIC TOPICAL (08:39)
--- NOTE | 2025-10-06 08:58 | PTOTSP ---
Reviewed chart and noted neurosurgeon recommended TLSO brace for pt's back pain. Needs order for [facility] to deliver brace as braces are not in stock in the hospital.
--- NOTE | 2025-10-06 10:14 | W.PN.ID1 ---
Date of Service
Date of Service: October 06, 2025
Today's Communication
Recommend IR biopsy for cultures.
Assessment / Plan
# T9-T10 discitis/osteomyelitis with paraspinal phlegmon
# Leukocytosis
# Incidental finding of lung mass suspicious for neoplasm
# FAHEEM
- No surgical intervention per neurosurgery.
- blood cultures neg x 24h
- Recommend IR biopsy for cultures.
- Patient hemodynamically stable, hold antibiotic at this time until after biopsy
- Follow white count.
Conditions present on admission:
DM
dementia
HTN
ILD
COPD
Chronic hypoxemic failure on nocturnal O2
TAVR
Atrial fibrillation
CAD s/p stent
HFpEF
PPM
CKD3
Hypothyroidism
gout
R FELIPA
Chief Complaint
-: Other (discitis)
Subjective / Review of Systems
Daughter at bedside.
Pt continues with back pain.
Vital Signs / Physical Exam
Vital Signs
Vital Signs
Temp Pulse Resp BP Pulse Ox
99.1 F 73 16 111/41 95
10/06/25 08:45 10/06/25 08:04 10/06/25 08:04 10/06/25 00:00 10/06/25 08:45
Physical Exam
Constitutional: Acutely Ill and Chronically Ill
Cardiovascular: Regular Rate and S1/S2
Pulmonary: Clear
Gastrointestinal: Soft, Non Tender, Non Distended and Normal Bowel Sounds
Extremities: Edema
Neurological: Other (Spontaneously moves BLE)
Objective Data
Lab Data
Lab Results
10/06/25 05:07
10/06/25 05:07
ESR 79 mm/hour (0-20) H 10/05/25 17:09
Estimated Creat Clear 21 ml/min 10/06/25 05:07
Lactic Acid 1.0 mmol/L (0.7-2.0) 10/05/25 01:31
Total Bilirubin 0.4 mg/dl (0.2-1.3) 10/04/25 22:32
AST 12 U/L (17-59) L 10/04/25 22:32
ALT 13 U/L (0-50) 10/04/25 22:32
Alkaline Phosphatase 99 U/L (38-126) 10/04/25 22:32
C-Reactive Protein 226.20 mg/L (0.0-10.00) H 10/05/25 17:09
Most recent labs reviewed.
Micro Results:
10/05/25 00:34 Urine Culture - Preliminary
Urine Gram negative bacilli
10/05/25 02:24 Blood Culture - Preliminary
Blood/Venous No Growth in 24 hours- Final report to follow
10/05/25 01:31 Blood Culture - Preliminary
Blood/Venous No Growth in 24 hours- Final report to follow
10/05/25 00:34 Influenza Types A & B (JOSEPHINE) - Final
Nasal Swab Negative for Influenza A & B, NAAT
Negative results must be combined with clinical observations
and patient history.
Nucleic Acid Amplification test (NAAT)performed on the
[employer] platform.
10/05/25 MRI of the thoracic and lumbar spine without and with contrast: MR findings highly suggestive of discitis/osteomyelitis at T9-10. There is enhancing intermediate T1-weighted signal anteriorly compatible with paraspinal phlegmon. Of note,
the posterior aspect of the disc space is not involved, and there is no evidence for extension into the spinal canal, with no evidence for epidural abscess or phlegmon. Compression deformities involving L1 and L4
10/05/25 CT C/A/P:
1. Left upper lobe pulmonary mass highly suspicious for neoplasm.
2. Smaller part solid right upper lobe opacity, possibly infectious/inflammatory versus metastasis.
3. Slightly prominent mediastinal and bilateral hilar lymph nodes suspected, possibly reactive or metastatic.
5. Probable acute or subacute fracture at T9-10. Cannot rule out underlying discitis osteomyelitis at this level. Recommend further evaluation with dedicated MRI.
10/05/[address]: No acute intracranial abnormality noted.
Care Review
Plan reviewed with: Physician (Dr. Foy)
--- NOTE | 2025-10-06 10:32 | W.PN.NEPH.PH ---
Today's Communication / Plan
-
IVF
Assessment/Plan
-
Assessment
Back pain
LE weakness
bowel/bladder incontinence
FAHEEM
CKD3a 1.4
severe MS
PAFib
TAVR
COPD
DM2
edema
metabolic acidosis NAG
Plan
UPCR 0.2. nonnephrotic
increase IVF a little
follow BMP
await neuro workup
-
-
Date of Service: October 06, 2025
CC / HPI / ROS
-
Chief Complaint:
FAHEEM
History of Present Illness:
FAHEEM/Cr down to 2.7
Na normal
Acidosis stable 17
BP stable
hgb stable 7.1
Review of Systems:
BLE pain
not eating
Labs
-
Labs:
WBC 26.3 10^3/uL (4.8-10.8) H 10/06/25 05:07
RBC 2.58 10^6/uL (4.70-6.10) L 10/06/25 05:07
Hgb 7.1 g/dL (13.0-18.0) L 10/06/25 05:07
Hct 23.4 % (39.0-52.0) L 10/06/25 05:07
Plt Count 206 10^3/uL (130-400) 10/06/25 05:07
Sodium 135 mmol/L (135-145) 10/06/25 05:07
Potassium 3.8 mmol/L (3.5-5.1) 10/06/25 05:07
Chloride 112 mmol/L (98-107) H 10/06/25 05:07
Carbon Dioxide 17 mmol/L (22-30) L 10/06/25 05:07
BUN 105 mg/dl (9-20) H* 10/06/25 05:07
Creatinine 2.7 mg/dL (0.7-1.3) H 10/06/25 05:07
eGFR 22.40 10/06/25 05:07
Glucose 88 mg/dl (70-99) 10/06/25 05:07
Calcium 7.5 mg/dl (8.4-10.2) L 10/06/25 05:07
Wxg-O-Jnitdazuyjo Pept 6900 pg/ml 10/05/25 00:34
Albumin 2.0 g/dl (3.5-5.0) L 10/06/25 05:07
Physical Exam
-
Vital Signs:
Vital Signs
Temp Pulse Resp BP Pulse Ox
99.1 F 73 16 111/41 95
10/06/25 08:45 10/06/25 08:04 10/06/25 08:04 10/06/25 00:00 10/06/25 08:45
Cardiovascular:: Regular rate and rhythm
Respiratory:: Bilateral: Coarse
Lung Excursion:: Normal
Abdomen:: Nontender and Soft
Bowel Sounds:: Normal
Extremity Edema:: +2: Bilateral:
--- NOTE | 2025-10-06 12:34 | PTCARENOTE ---
Addendum entered by Carlyle Venegas RN 10/06/25 18:33:
Patient with fever today, MD aware. Patients LUE with increased swelling and wheeping, aware, US ordered.
Addendum entered by Carlyle Venegas RN 10/06/25 18:30:
Patient states he has reached his limits today and is refusing any further sticks, including blood cultures and PICC line insertion. MD aware. Patient is questioning hospice route. Information provided, consult to be placed by MD for hospice eval
tomorrow. Daughter aware and discussed hospice option with me as well. Emotional support provided.
Original Note:
Patient AAOx2-3, drowsy, c/o gout pain mostly in right arm and LEs, also c/o back pain, Q2 turns and PRN dilaudid, see mar. RA, AV paced on monitor, BPs soft. Patient with generalized edema and multiple wheeping spots. Daughter at bedside.
Continuing to closely monitor.
--- NOTE | 2025-10-06 13:00 | W.PN.CARDCBS ---
Today's Communication / Plan
-
Check echo
IVF as per nephrology
Impression / Plan
-
.
PCP: Dr. Dexter Meng
Primary Trimming Machine Set Up Operator: Dr. Deana Palomino
Impression:
Presented 08/02/2025 with lethargy, weakness
Acute on chronic leukocytosis
Concern for sepsis
Acute anemia, heme +
MILA mass, RUL mass, concern for hilar LN mets by chest CT
Concern for acute on chronic HFpEF
Lethargy
FAHEEM on CKD 3a
Recent falls with thoracic and lumbar compression fractures
Recent admission for acute HF, presented with edema/anasarca 07/15/25
Recent gout flare
Paroxysmal atrial fibrillation
Chronic Eliquis anticoagulation
CAD
s/p BLADIMIR to mid LAD 01/13/2020
s/p BLADIMIR to prox LAD 06/21/2024
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
MS/MR, mild to mod by echo 2023
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
COPD
Chronic prednisone
Carotid stenosis
Neuropathic pain left lower extremity
gout
Hypertension
Hyperlipidemia
Hypothyroidism
Type 2 DM
Renal insufficiency
Frequent PVCs, NSVT
DNR code status
Echo 06/18/2024: EF 50 to 55%, stage II diastolic dysfunction, mild to moderate MS with peak/mean gradient 16/8 mmHg, moderate MR, severely dilated left atrium, status post number 26 mm TAVR with peak/mean gradients of 25/17 mmHg, trace AR, trace TR,
PAP 30 mmHg
ECHO 04/05/2025: EF 60 to 65%, no regional wall motion abnormalities noted, mild concentric LVH, moderate to severe MS with peak/mean gradients 26/13 mmHg, Fleming ROSARIO #26 TAVR with peak/mean gradients 37/22 mmHg, trace TR, PAP 50 to 55 mmHg
Plan:
Patient presented with weakness, lethargy, back pain in setting of multiple recent trip and fall events. noted to have subacute compression fractures of thoracic and lumbar spine. spine has been consulted for evaluation also with acute on chronic
leukocytosis and low grade temp, being worked up for acute infectious process by primary service. Chest xray with evidence of left and right upper lung masses with hilar LN involvement concerning for METs.
Remain with significant anemia with hemoglobin 7 on arrival and heme positive. Eliquis is held.
Consider transfusion. Daughter had discussed stopping anticoagulation as an patient due to recent falls.
Chest x-ray with evidence of left upper and right upper lobe lung masses with hilar lymph node involvement concerning for mets. Defer to primary service and school nurse for workup and evaluation. Pulm and oncology evaluating
Cardiology was consulted for concern for possible cardiorenal syndrome and potential heart failure. The patient has had preserved EF by last echo but does have moderate to severe mitral stenosis. Would repeat this to reevaluate left ventricular
systolic function and degree of mitral stenosis. Previous discussion regarding TMVR however patient is not currently a candidate for this
Patient is currently getting IV fluid for renal failure. Monitor volume status closely. IVF as per nephrology.
proBNP is elevated at [address] shows small B/L pleural effusions.
His lower extremity edema has worsened despite recent adjustment of diuretic therapy including Lasix 60 mg twice daily and Zaroxolyn 2.5 mg Friday and Friday. His edema is likely multifactorial including sedentary lifestyle secondary to his
significant back issues.
Remains AV paced on telemetry. Continue outpatient amiodarone.
Per discussion with patient and with daughter Yolanda, who is an [employer], Courtney reports they had previously been discussing hospice however had not felt patient was ready.
Progress Note - Trimming Machine Set Up Operator
Subjective
Date of Service: October 06, 2025
Pt seen and examined. No chest pain or shortness of breath.
Objective
Labs:
10/06/25 05:07
10/06/25 05:07
Labs
Hgb 7.1 g/dL (13.0-18.0) L 10/06/25 05:07
Hct 23.4 % (39.0-52.0) L 10/06/25 05:07
Plt Count 206 10^3/uL (130-400) 10/06/25 05:07
Sodium 135 mmol/L (135-145) 10/06/25 05:07
Potassium 3.8 mmol/L (3.5-5.1) 10/06/25 05:07
BUN 105 mg/dl (9-20) H* 10/06/25 05:07
Creatinine 2.7 mg/dL (0.7-1.3) H 10/06/25 05:07
Glucose 88 mg/dl (70-99) 10/06/25 05:07
Troponins
10/05/25
00:34
Troponin I 0.017
Vital Signs and I&O:
Vital Signs
Temp Pulse Resp BP Pulse Ox
99.1 F 76 22 96/45 95
10/06/25 08:45 10/06/25 12:00 10/06/25 12:00 10/06/25 12:00 10/06/25 12:00
Vital Signs
Temp Pulse Resp BP Pulse Ox
99.1 F 76 22 96/45 95
10/06/25 08:45 10/06/25 12:00 10/06/25 12:00 10/06/25 12:00 10/06/25 12:00
Intake & Output
10/04/25 10/05/25 10/06/25 10/07/25
06:59 06:59 06:59 06:59
Intake Total 1310 / 1310
Output Total 990 / 990
Balance 320 / 320
Physical Exam
Physical Exam
General: No acute distress, AAOX3
Neck: Negative JVD
Heart: Regular, Negative S3 positive S1/S2, Negative S4, No murmur
Lungs: CTA b/l, negative wheezes/rales/rhonchi
Abd: Positive BS, NT/ND, neg rebound/rigidity/guarding
Ext: Negative cyanosis/clubbing/edema
Neuro: nonfocal
[2025-10-06 13:02] LABS: Glucose - Point of Care 115 mg/dl (70-99)
--- NOTE | 2025-10-06 13:10 | CON.ONC ---
Consultation
-
Date Consultation Requested: 10/06/25
Date Consultation Performed: 10/06/25
Requesting Provider: Dr. Tam Foy
Performing Provider: Dr. Sarabjit Jung
Reason for Consultation: lung mass
Impression
Impression
LLL pulmonary mass, smaller part solid RUL opacity, slightly prominent mediastinal and bilateral hilar lymph nodes, small b/l pleural effusion findings suspicious for malignancy, former smoker
MRI thoracic and lumbar spine showed discitis/osteomyelitis at T9-10
Plan
Plan
ABx and IR biopsy for discitis/osteomyelitis at T9-10 -management per ID
Discussed with pt and daughter at bedside CT CAP finding concerning for malignancy. If they would like to pursue diagnosis, could attempt IR thora for pleural fluid vs IR lung biopsy. We also reviewed that performance status and nutritional status
would need to improve to be a candidate for any systemic therapy if malignancy were confirmed. In addition, infectioun would need to be resolved.
Medical oncology will stand by for tissue diagnosis if pt/family would like to pursue
Patient History
History of Present Illness
85yo M who presented with progressive back pain, lower extremity weakness, and frequent falls. His symptoms have bee progressive over the past 2 months. His intial evaluation was notable for WBC 32.3, Hgb 7.5g/dL, platelet count 180,000, BUN 100,
creatinine 2.9, iron <20, TIBC 130, ferritin 176, CRP 226, b12 >1000, folate 9.9. His CT head showed no acute intracranial abnormality. His CT CAP showed LLL pulmonary mass, smaller part solid RUL opacity, slightly prominent mediastinal and
bilateral hilar lymph nodes, small b/l pleural effusion. His MRI thoracic and lumbar spine showed discitis/osteomyelitis at T9-10. He has been admitted and started on IV abx.
Clinically, he reports back pain and general weakness, especally in his legs. He us using hydromorphone IV prn pain.
Tmax 100.5F, 2L NC, hypotension resolved.
Past-Medical/Surgical History
PMH ASCVD, HFrEF, AF, hypothyroid, ILD, COPD, HTN, CKD3, AOCD, DM2, pancreatic insufficiency, dementia
PMH TAVR, PPM, PTCA with stent, R FELIPA, cararacts
Social former smoker, denies ETOH or recreational drugs
Family non-contributory
Patient Medication
�Medication �Instructions �Recorded �Confirmed �Last Taken �Type
cyanocobalamin (vitamin B-12) 1,000 mcg PO QPM Supplement 01/13/20 10/05/25 07/14/25 History
1,000 mcg tablet
levothyroxine 175 mcg tablet 175 mcg PO DAILY Thyroid 01/13/20 10/05/25 07/15/25 History
sertraline 50 mg tablet 50 mg PO HS Mental Health/Anxiety 01/13/20 08/02/25 07/14/25 History
pantoprazole 40 mg tablet,delayed 40 mg PO QPM Gastrointestinal issue 05/15/20 10/05/25 07/14/25 History
release
budesonide 0.5 mg/2 mL suspension 0.5 mg (2 mL) inhalation R BID 30 05/07/21 10/05/25 07/15/25 Rx
for nebulization days ##2
magnesium oxide 400 mg PO QPM Supplement 03/15/22 10/05/25 07/14/25 History
azithromycin 250 mg tablet 250 mg PO QPM Infection 05/25/24 10/05/25 07/14/25 History
(Zithromax)
donepezil 10 mg tablet 10 mg PO HS Mental Health/Anxiety 05/25/24 10/05/25 07/14/25 History
ipratropium 0.5 mg-albuterol 3 mg 3 ml inhalation R TID 05/25/24 10/05/25 07/15/25 History
(2.5 mg base)/3 mL nebulization Lung/Breathing Issues
soln
prednisone 10 mg tablet 10 mg PO DAILY Anti-Inflammatory 05/25/24 10/05/25 07/15/25 History
vitamins A,C,G-drip-ajlcec 2,148 1 tab PO BID Supplement 05/25/24 10/05/25 07/15/25 History
mcg-113 mg-45 mg-17.4 mg tablet
(PreserVision AREDS)
cholecalciferol (vitamin D3) 25 50 mcg PO QPM Supplement 06/17/24 10/05/25 07/14/25 History
mcg (1,000 unit) tablet
apixaban 2.5 mg tablet (Eliquis) 2.5 mg PO BID 30 days #60 tabs 06/22/24 10/05/25 07/15/25 Rx
doxazosin 1 mg tablet 3 mg (3 x 1 mg) PO HS 30 days #90 06/22/24 10/05/25 07/14/25 Rx
tabs
amiodarone 200 mg tablet (Pacerone) 200 mg PO DAILY AFIB 04/05/25 10/05/25 07/15/25 History
atorvastatin 40 mg tablet (Lipitor) 40 mg PO HS High Cholesterol 04/05/25 10/05/25 07/14/25 History
metoprolol succinate 25 mg 25 mg PO BID Blood Pressure 04/05/25 10/05/25 07/15/25 History
tablet,extended release 24 hr
pfpvqi-dcbipisf-zetkgv(pork)24,000-76,000-120,000 2 cap PO MEALS Gastrointestinal 07/15/25 10/05/25 Unknown History
unit capsule,del rel (Creon) Issue
potassium chloride 20 mEq 20 meq PO BID #0 tabs 07/22/25 10/05/25 Unknown Rx
tablet,extended release(part/cryst)
bisacodyl 10 mg rectal suppository 10 mg IA DAILY PRN no bm x 8h post 08/02/25 10/05/25 Unknown History
(Dulcolax (bisacodyl)) MOM
guaifenesin 600 mg tablet, 600 mg PO BID Cough 08/02/25 10/05/25 Unknown History
extended release 12 hr
insulin aspart U-100 100 unit/mL 0 - 6 sliding scale dose SC AC 08/02/25 10/05/25 Unknown History
(3 mL) subcutaneous pen (Novolog Diabetes
FlexPen U-100 Insulin aspart)
yddauw-tjfehmon-rmncmw(pork)24,000-76,000-120,000 1 cap PO TIDPRN PRN SNACKS 08/02/25 10/05/25 Unknown History
unit capsule,del rel (Creon)
metolazone 5 mg tablet 2.5 mg PO 4-8XD Fluid 08/02/25 10/05/25 Unknown History
Retention/Swelling
acetaminophen 325 mg tablet (Pain 650 mg PO Q6HPRN PRN mild pain/ 10/05/25 10/05/25 Unknown History
Relief (acetaminophen)) fever>100.5F
furosemide 80 mg tablet (Lasix) 60 mg PO BID Fluid 10/05/25 10/05/25 Unknown History
Retention/Swelling
Active Medications
Generic Name Dose Route Start Last Admin
Trade Name Freq PRN Reason Stop Dose Admin
Acetaminophen 650 mg 10/05/25 05:40
Acetaminophen 325 Mg Tablet PO 11/02/25 05:39
Q4HPRN PRN
Mild Pain / Temp > 101
Albuterol/Ipratropium 3 ml 10/05/25 05:40
Ipratropium 0.5/Albuterol 3 Mg (3 Ml Ampul) INH
R Q4HPRN PRN
SOB
Protocol
Amiodarone HCl 200 mg 10/05/25 08:00 10/06/25 08:39
Amiodarone 200 Mg Tablet PO 11/02/25 07:59 200 mg
DAILY RACHEL Administration
Atorvastatin Calcium 40 mg 10/05/25 22:00 10/05/25 22:21
Atorvastatin (Lipitor) 40 Mg Tablet PO 11/02/25 21:59 40 mg
HS RACHEL Administration
Budesonide 0.5 mg 10/05/25 08:00 10/06/25 08:01
Budesonide (Pulmicort Respules) 0.5 Mg/2 Ml INH 0.5 mg
R BID RACHEL Administration
Protocol
Dextrose 12.5 grams 10/05/25 05:40
Dextrose 50% (0.5 Grams/Ml) 50 Ml Syringe IV 11/02/25 05:39
[id number] PRN
hypoglycemia
Protocol
Donepezil HCl 10 mg 10/05/25 22:00 10/05/25 22:21
Donepezil Hcl 10 Mg Tablet PO 11/02/25 21:59 10 mg
HS RACHEL Administration
Doxazosin Mesylate 3 mg 10/05/25 22:00 10/05/25 22:20
Doxazosin 1 Mg Tablet PO 11/02/25 21:59 3 mg
HS RACHEL Administration
Emollient Ointment 0 applic 10/06/25 08:00 10/06/25 08:39
Petrolatum/Mineral Oil (Hydrophor) Oint 100 Gram TOPICAL 11/03/25 07:59 1 applic
DAILY RACHEL Administration
Glucagon 1 mg 10/05/25 05:40
Glucagon 1 Mg Vial IM 11/02/25 05:39
PRN PRN
hypoglycemia
Protocol
Hydromorphone HCl 0.5 mg 10/05/25 05:40 10/06/25 12:43
Hydromorphone 0.5 Mg/0.5 Ml Syringe IV 10/19/25 05:39 0.5 mg
Q4HPRN PRN Administration
Severe Pain
Sodium Chloride 1,000 mls @ 90 mls/hr 10/06/25 10:34 10/06/25 11:00
Nss IV 1,000 mls
.Q11H7M RACHEL Administration
Insulin Aspart 0 units 10/05/25 07:30 10/06/25 12:54
Insulin Aspart Low Resistance 300 Units/3 Ml Pen.Injctr SC 11/02/25 07:29 Not Given
AC RACHEL
Protocol
Levothyroxine Sodium 175 mcg 10/05/25 06:00 10/06/25 05:11
Levothyroxine 175 Mcg Tablet PO 11/02/25 05:59 175 mcg
DAILY @ 0600 RACHEL Administration
Metoprolol Succinate 25 mg 10/05/25 08:00 10/06/25 08:39
Metoprolol 25 Mg Extended Release Tablet PO 11/02/25 07:59 25 mg
BID RACHLE Administration
Pantoprazole Sodium 40 mg 10/05/25 08:00 10/06/25 08:38
Pantoprazole Sodium 40 Mg/10 Ml Vial IV 11/02/25 07:59 40 mg
BID RACHEL Administration
Prednisone 10 mg 10/05/25 08:00 10/06/25 08:39
Prednisone 10 Mg Tablet PO 11/02/25 07:59 10 mg
DAILY RACHEL Administration
Sodium Chloride 0 flush 10/05/25 06:00
Sodium Chloride 0.9% (Flush) Syringe IV 11/02/25 05:59
PER PROTOCOL RACHEL
Sodium Chloride 10 ml 10/05/25 08:00 10/06/25 08:38
Sodium Chloride 0.9% (Preservative Free) 10 Ml Vial IV 11/02/25 07:59 10 ml
BID RACHEL Administration
Review of Systems
-
ROS is notable for HPI, otherwise negative
Physical Exam
-
General: No Apparent Distress and Appears Chronically Ill
HEENT: Negative Jaundice
Cardiology: Murmur and Other (PPM)
Pulmonary: Clear
GI: Soft
Extremities: Pulses Present
Skin: Warm
Psych: Calm
Labs
Lab Results
WBC 26.3 10^3/uL (4.8-10.8) H 10/06/25 05:07
RBC 2.58 10^6/uL (4.70-6.10) L 10/06/25 05:07
Hgb 7.1 g/dL (13.0-18.0) L 10/06/25 05:07
Hct 23.4 % (39.0-52.0) L 10/06/25 05:07
MCV 90.7 fL (80.0-94.0) 10/06/25 05:07
MCH 27.5 pg (27.0-31.0) 10/06/25 05:07
MCHC 30.3 g/dL (33.0-37.0) L 10/06/25 05:07
RDW 17.2 % (11.5-14.5) H 10/06/25 05:07
Plt Count 206 10^3/uL (130-400) 10/06/25 05:07
MPV 10.7 fL (7.4-10.4) H 10/06/25 05:07
Abs Immat Gran (auto) 0.3 10^3/uL (0-0.05) H 10/06/25 05:07
Absolute Neuts (auto) 24.3 10^3/uL (1.4-6.5) H 10/06/25 05:07
Absolute Lymphs (auto) 0.5 10^3/uL (1.2-3.4) L 10/06/25 05:07
Absolute Monos (auto) 1.3 10^3/uL (0.1-0.6) H 10/06/25 05:07
Absolute Eos (auto) 0.0 10^3/uL (0-0.7) 10/06/25 05:07
Absolute Basos (auto) 0.0 10^3/uL (0-0.2) 10/06/25 05:07
Immature Gran % 0.9 % (0-0.5) H 10/06/25 05:07
Neutrophils % 92.2 % (42.2-75.2) H 10/06/25 05:07
Lymphocytes % 1.9 % (20.5-51.1) L 10/06/25 05:07
Monocytes % 4.8 % (1.7-9.3) 10/06/25 05:07
Eosinophils % 0.0 % (0-6) 10/06/25 05:07
Basophils % 0.2 % (0-2) 10/06/25 05:07
Creatinine 2.7 mg/dL (0.7-1.3) H 10/06/25 05:07
Vital Signs
Vital Signs
Temp Pulse Resp BP Pulse Ox
99.1 F 76 22 96/45 95
10/06/25 08:45 10/06/25 12:00 10/06/25 12:00 10/06/25 12:00 10/06/25 12:00
--- NOTE | 2025-10-06 13:21 | W.PN.HOSP.TC ---
Today's Communication/Plan
-
See plan
Assessment / Plan
Assessment / Plan
Physical Exam
General: Not in acute distress
HEENT: Moist mucous membranes
Respiratory: Mild Crackles Bilaterally
Cardiac: S1/S2, Regular Rhythm and Murmur (II/ JOHNNY)
GI: Soft, Non Tender, Non Distended and Normal Bowel Sounds
Extremities: 3+ pitting edema in the bilateral lower extremities
Neuro: AAO x 3
Assessment/Plan
85 y/o male with past medical history significant for ASCVD, HFpEF, A-Fib on Eliquis and DM-II who presented to [facility] ED complaining of back pain and lower extremity weakness. Patient stated that his symptoms have been ongoing for about 2 months now.
He was last hospitalized here 08/02/25 - 08/06/25 and treated for heart failure exacerbation at that time. Two days later he had an MRI of his L spine which showed L4 compression fracture and L5 spinous process fracture with associated edema and severe
central canal stenosis at L3-4. Patient stated that he had been participating with physical therapy since that time. Patient was placed on Lyrica for pain, but later developed encephalopathy from it, therefore Lyrica was stopped and his
encephalopathy improved. Patient was also taken off narcotic pain meds and has been in and out of skilled nursing. Patient had lifted weights, hurt his back and placed back on narcotic pain medications.
Back Pain / Progressively worsening lower extremity weakness and decreased sensation
Frequent Falls
Thoracic / Lumbar Vertebral Fractures with Associated Edema
- Progressive symptoms x 2 months with frequent falls, LE weakness, back pain -- no true incontinence (has stools that may come out because of urge to defecate from chronic pancreatitis, Creon)
- Received initial doses of abx in the ED. Will hold on further doses for now pending culture data, increased fevers, etc. -- appreciate ID (please see below)
- MRI T and L spine with infection/inflammation (please see below)
- Neurosurgery evaluation for additional recommendations.
- Supportive care, pain control, etc.
- Follow for changes in neurologic exam.
Fever
Leukocytosis
Spine Discitis/Osteomyelitis
- Discussed case with Dr. Cherry, she recommended holding off on antibiotics unless blood cultures are positive or until after a potential biopsy (which will be done if blood cultures are negative)
- Initial blood cultures are negative so far --> IR consulted for biopsy (they said bone biopsy with anesthesia needed (will be done YOLIS)
- Repeat blood cultures ordered 10/06/25 given fever -- discussed with infectious diseases physician Dr. Cherry -- Dr. Cherry recommended no antibiotics for now (pending biopsy and culture of spine
osteomyelitis and discitis to prevent false negative and confounding culture results), if patient becomes unstable, check with ID about starting antibiotics
HFpEF
Bilateral Pleural Effusions
Moderate to severe mitral stenosis
- proBNP is elevated at [address] shows small B/L pleural effusions. His lower extremity edema has worsened despite recent adjustment of diuretic therapy including Lasix 60 mg twice daily and Zaroxolyn 2.5 mg Friday and Friday.
- Holding diuretics and providing IV fluids for now (please see below)
FAHEEM on CKD III
Hyponatremia
Non-Gapped Metabolic Acidosis
Chronic HFpEF
- Initial Serum Cr = 3 compared to baseline of 1.5.
- Hold diuretic regimen acutely.
- Gentle IVFs given poor oral intake and dry mucus membranes
- Follow daily weights, I/Os, etc.
Left Upper Extremity Swelling
- Check ultrasound of LUE
Severe Bilateral Lower Extremity Edema
Hypoalbuminemia
- Edema from third spacing
- Evaluate for nephrotic syndrome as per nephrology
Leukocytosis
- Acute on chronic. ~27k at present with baseline apparently in the high teens.
- ? underlying chronic hematologic process, etc.
- Follow for changes in cell counts.
- Follow-up culture data, fever curve, etc as noted above.
Iron Deficiency Anemia
Heme Positive Stool
- Hgb is 7.0 to 7.5 initially, compared to prior baseline 9.4 (but patient's daughter stated that it has been in the 7 to 8 range in the past)
- No noted blood loss per patient. Heme positive stool noted in the ED.
- 1 unit PRBC ordered on 10/06/25
- Follow H&H for changes.
- Will consider starting oral iron. Avoiding IV iron due to concern for infection as above.
- IV PPI daily.
- Appreciate GI evaluation
ASCVD
Paroxysmal Atrial Fibrillation
s/p TAVR
- Stable. Hold Eliquis acutely.
- Continue outpatient Amiodarone.
- No complaints of chest pain, dyspnea, etc.
ILD / COPD
New lung mass suggestive of new malignancy with hilar lymph node involvement concerning for mets
- No acute dyspnea, wheezing, etc.
- Continue usual inhalers. Continue prednisone dose with no changes for now.
- Patient informed of CT finding of spiculated lesion in the MILA - will require further evaluation as an outpatient.
- MRI T and L spine performed on 10/05/25 showed no metastases
- Appreciate oncology input on prognosis
- Pulmonary also consulted
DM-II
- Stable. Follow glucose and cover with SSI as needed.
- Updated A1C 6.6%
Hypothyroidism
- Continue T4 supplementation.
Gout
- No longer on Colchicine because of renal insufficiency
DVT Prophylaxis: SCDs
Code Status: DNR
On 10/05/25 and on 10/06/25, I spoke extensively to patient's daughter Yolanda, and I answered all of her questions and concerns to satisfaction.
Discitis and Osteomyelitis of the spine with fever, and severe edema is high risk encounter. Also, total time spent on patient's care was 70 minutes today.
Anticipated Discharge: > 48 hours
Subjective/Interval History
-
Date of Service: October 06, 2025
Patient was seen and examined. No new symptoms.
Objective Data
-
Labs:
Laboratory Results
10/06/25
05:07
WBC 26.3 H
Hgb 7.1 L
Hct 23.4 L
Plt Count 206
Sodium 135
Potassium 3.8
Chloride 112 H
Carbon Dioxide 17 L
BUN 105 H*
Creatinine 2.7 H
Glucose 88
Calcium 7.5 L
Vital Signs:
Vital Signs
Temp Pulse Resp BP Pulse Ox
99.1 F 76 22 96/45 95
10/06/25 08:45 10/06/25 12:00 10/06/25 12:00 10/06/25 12:00 10/06/25 12:00
I&O
10/05/25 10/06/25 10/07/25
06:59 06:59 06:59
Intake Total 1310 / 1310
Output Total 990 / 990
Balance 320 / 320
--- NOTE | 2025-10-06 13:46 | CON.PUL ---
Consultation
Consultation Request
Date/Time Consultation Requested: 10/06/2025
Date/Time Consultation Performed: 10/06/2025
Requesting Provider: Dr. Foy
Performing Provider: Dr. Alek Mcghee
Reason for Consultation: Pulmonary Mass
Medical History
-
History of Present Illness:
85-year-old man( former smoker with multiple other comorbidities initially presented to the hospital complaining of progressive back pain, lower extremity weakness and frequent falls.
Symptoms have been progressive over the last 2 months.
He was found to have leukocytosis, anemia, acute kidney injury.
Ultimately found to have discitis and possibly osteomyelitis on theThoracic spine.
Part of the evaluation including CT of the chest abdomen and pelvis.
CT chest demonstrated a left upper lobe lung mass concerning for malignancy.
I was consulted to comment on the possibility of malignancy versus others.
-
Patient currently feels debilitated.
He is essentially bedbound due to his back pain
He is on antibiotics
He denies any cough, phlegm production or hemoptysis
He is a former smoker.
Past Medical History
Past Medical History: Other (See assessment and plan)
Social History
Tobacco: Former Smoker
Alcohol: None
Drug: None
Occupational Exposures: denies
Environmental Exposures: denies
Family History
Family History: Reviewed & Not Pertinent
Allergies / Home Medications
Allergies
Allergy/AdvReac Type Severity Reaction Status Date / Time
No Known Allergies Allergy Verified 04/05/25 00:35
Home Medications
�Medication �Instructions �Recorded �Confirmed �Last Taken �Type
cyanocobalamin (vitamin B-12) 1,000 mcg PO QPM Supplement 01/13/20 10/05/25 07/14/25 History
1,000 mcg tablet
levothyroxine 175 mcg tablet 175 mcg PO DAILY Thyroid 01/13/20 10/05/25 07/15/25 History
sertraline 50 mg tablet 50 mg PO HS Mental Health/Anxiety 01/13/20 08/02/25 07/14/25 History
pantoprazole 40 mg tablet,delayed 40 mg PO QPM Gastrointestinal issue 05/15/20 10/05/25 07/14/25 History
release
budesonide 0.5 mg/2 mL suspension 0.5 mg (2 mL) inhalation R BID 30 05/07/21 10/05/25 07/15/25 Rx
for nebulization days ##2
magnesium oxide 400 mg PO QPM Supplement 03/15/22 10/05/25 07/14/25 History
azithromycin 250 mg tablet 250 mg PO QPM Infection 05/25/24 10/05/25 07/14/25 History
(Zithromax)
donepezil 10 mg tablet 10 mg PO HS Mental Health/Anxiety 05/25/24 10/05/25 07/14/25 History
ipratropium 0.5 mg-albuterol 3 mg 3 ml inhalation R TID 05/25/24 10/05/25 07/15/25 History
(2.5 mg base)/3 mL nebulization Lung/Breathing Issues
soln
prednisone 10 mg tablet 10 mg PO DAILY Anti-Inflammatory 05/25/24 10/05/25 07/15/25 History
vitamins A,C,Y-tsdu-efxyua 2,148 1 tab PO BID Supplement 05/25/24 10/05/25 07/15/25 History
mcg-113 mg-45 mg-17.4 mg tablet
(PreserVision AREDS)
cholecalciferol (vitamin D3) 25 50 mcg PO QPM Supplement 06/17/24 10/05/25 07/14/25 History
mcg (1,000 unit) tablet
apixaban 2.5 mg tablet (Eliquis) 2.5 mg PO BID 30 days #60 tabs 06/22/24 10/05/25 07/15/25 Rx
doxazosin 1 mg tablet 3 mg (3 x 1 mg) PO HS 30 days #90 06/22/24 10/05/25 07/14/25 Rx
tabs
amiodarone 200 mg tablet (Pacerone) 200 mg PO DAILY AFIB 04/05/25 10/05/25 07/15/25 History
atorvastatin 40 mg tablet (Lipitor) 40 mg PO HS High Cholesterol 04/05/25 10/05/25 07/14/25 History
metoprolol succinate 25 mg 25 mg PO BID Blood Pressure 04/05/25 10/05/25 07/15/25 History
tablet,extended release 24 hr
gneosu-baqegfid-wvfwyr(pork)24,000-76,000-120,000 2 cap PO MEALS Gastrointestinal 07/15/25 10/05/25 Unknown History
unit capsule,del rel (Creon) Issue
potassium chloride 20 mEq 20 meq PO BID #0 tabs 07/22/25 10/05/25 Unknown Rx
tablet,extended release(part/cryst)
bisacodyl 10 mg rectal suppository 10 mg UT DAILY PRN no bm x 8h post 08/02/25 10/05/25 Unknown History
(Dulcolax (bisacodyl)) MOM
guaifenesin 600 mg tablet, 600 mg PO BID Cough 08/02/25 10/05/25 Unknown History
extended release 12 hr
insulin aspart U-100 100 unit/mL 0 - 6 sliding scale dose SC AC 08/02/25 10/05/25 Unknown History
(3 mL) subcutaneous pen (Novolog Diabetes
FlexPen U-100 Insulin aspart)
ufifsq-avvscenc-bmwyeq(pork)24,000-76,000-120,000 1 cap PO TIDPRN PRN SNACKS 08/02/25 10/05/25 Unknown History
unit capsule,del rel (Creon)
metolazone 5 mg tablet 2.5 mg PO 4-8XD Fluid 08/02/25 10/05/25 Unknown History
Retention/Swelling
acetaminophen 325 mg tablet (Pain 650 mg PO Q6HPRN PRN mild pain/ 10/05/25 10/05/25 Unknown History
Relief (acetaminophen)) fever>100.5F
furosemide 80 mg tablet (Lasix) 60 mg PO BID Fluid 10/05/25 10/05/25 Unknown History
Retention/Swelling
Review of Systems
-
History Source: Patient
All other systems: Negative unless noted
Vitals / Labs / Diagnostic Testing
Vital Signs
Temp Pulse Resp BP Pulse Ox
99.1 F 76 22 96/45 95
10/06/25 08:45 10/06/25 12:00 10/06/25 12:00 10/06/25 12:00 10/06/25 12:00
Lab Data
10/06/25 05:07
10/06/25 05:07
Microbiology
10/05/25 00:34 Urine Urine Culture - Preliminary
Gram negative bacilli
10/05/25 02:24 Blood/Venous Blood Culture - Preliminary
No Growth in 24 hours- Final report to follow
10/05/25 01:31 Blood/Venous Blood Culture - Preliminary
No Growth in 24 hours- Final report to follow
10/05/25 00:34 Nasal Swab Influenza Types A & B (JOSEPHINE) - Final
Negative for Influenza A & B, NAAT
Negative results must be combined with clinical observations
and patient history.
Nucleic Acid Amplification test (NAAT)performed on the
DICOM Grid platform.
Diagnostic Testing:
Physical Exam
-
HEENT: Normocephalic
Cardiovascular: Irregular Rhythm
Respiratory: Non-Labored Respirations
GI: Soft and Non Distended
Neurology: Awake, Alert, Oriented and No Motor Deficits
Skin: Warm
General: Comfortable
Assessment
-
Abnormal CT chest: Left upper lobe lung mass suggestive of malignancy.
CT scan reviewed: Irregular left upper lobe apical mass 3.9 3X3 centimeters new compared to prior.
Right upper lobe 1.5 cm part solid.
Prominent mediastinal and hilar lymphadenopathy And bilateral small pleural effusions.
T9-T10 discitis/posterior myelitis with paraspinal phlegmon
Leukocytosis
Acute kidney injury
Conditions present prior to admission:
Coronary artery disease
Heart failure with reduced ejection fraction
Fibrillation and anticoagulation
Hypothyroidism
COPD
Hypertension
Chronic kidney disease
Type 2 diabetes
Pancreatic insufficiency
? Dementia
Status post TVAR
Right total hip replacement
Prior stent placement
Assessment and Plan:
CT chest Reviewed in detail with patient and daughter at the bedside.
Left upper lobe mass highly suggestive of carcinoma.
Mediastinal and hilar lymph nodes may be reactive on the slightly increased in size
Previous imaging reviewed from 2020 --2021 and there was no lung nodule in that area.
Patient does have mild bilateral pleural effusions likely from volume overload and low albumin level
-
Based on patient's poor functional status, ongoing infection, multiple comorbidities and essentially nonambulatory status at this point. I recommend against pursuing biopsy.
she agrees. I recommended, treating infection first and if he recovers we can consider percutaneous biopsy at that point if he is deemed candidate for systemic therapy.
He is not a surgical candidate at this point.
-
We'll continue to follow on an as-needed basis.
Extensive time was spent reviewing prior imaging, discussion with daughter above findings.
-
will see on an as-needed basis.
Please call with questions.
[2025-10-06] MEDS: TYLENOL 650 MG PO ×2 (15:18→21:58)
--- NOTE | 2025-10-06 16:42 | PN.CDI ---
CDI
- -
CDI:
Physician Documentation Request
Admit Date: 10/05/25 03:19
Dear Doctor Law,
Please review the following and provide your response in the progress notes.
Clinical Indicators:
Pt admitted with back pain found to have Spine Discitis/Osteomyelitis with paraspinal phlegmon/FAHEEM
Documented per [facility]OC[facility] note 10/05, ' Patient last seen, 08/03/25 for same multiple skin tears on arms and legs, all shallow with scant drainage. Log rolled patient with 3 assist. Sacral stage 2 PI...Pressure redistribution devices in place: Air mattress.
Air chair cushion. Pillows under calves. ...'
Nursing wound care note 10/05, ' Present on admission sacrum pressure injury srage 2 ...treatment provided silcone border .'
Physician documentation of the type and location of wounds is required for compliant documentation. Based on the above clinical findings and your assessment, please provide the following in your progress note:
1. Location of the ulcer/wound, including laterality.
2. Type (etiology) of ulcer/wound:
- Pressure (decubitus) ulcer
- Non-pressure ulcer
- Other
Use of terms such as suspected, likely, concern for, or probable (associated with a specific diagnosis that is being evaluated, monitored, or treated as if it exists) are acceptable and can be coded in the inpatient setting, when documented at the
time of discharge.
Thank you,
Bria Hernandez RN
CDI Specialist
[employer] Text
Please use your independent medical judgment in providing your response.
*Source: National Pressure Ulcer Advisory Panel (NPUAP)
--- NOTE | 2025-10-06 16:45 | PN.CDI ---
CDI
- -
CDI:
Physician Documentation Request
Admit Date: 10/05/25 03:[address] Foy,
[facility] is using an adapted version of the 2016 Third International Consensus Definitions for Sepsis and Septic Shock (Sepsis-3) where sepsis is defined as life threatening organ dysfunction caused by a deregulated host response to infection.
Please reference the official [facility] Sepsis Recognition Tool for further information, which can be found on the Intranet under Infection Prevention.
Clinical Indicators:
Pt admitted with back pain found to have Spine Discitis/Osteomyelitis with paraspinal phlegmon/FAHEEM
Progress notes: Documented per ED,' Sepsis, Acute kidney injury...'
Documented in 10/04 Progress note, ' Fever Leukocytosis Spine Discitis/Osteomyelitis...FAHEEM on CKD III...Initial Serum Cr = 3 compared to baseline of 1.5....Leukocytosis Acute on chronic. ~27k at present with baseline apparently in the high
teens....'
ID consult, ' T9-T10 discitis/osteomyelitis with paraspinal phlegmon# Leukocytosis# FAHEEM...'
Trend vital signs:on admission 10/04
RR:35
Labs:
WBC: 32.3
Creatinine:3.0
Treatment: IVFs /ABX IV Zosyn/Vancomycin
Based on your medical judgment, please review the documentation pertaining to Sepsis due to (Enter infection) and further clarify the clinical indicators and any organ dysfunction associated with the diagnosis, if applicable:
� Sepsis T9-T10 discitis/osteomyelitis with paraspinal phlegmon due to with organ dysfunction of ____AKI____
� Sepsis ruled out, T9-T10 discitis/osteomyelitis with paraspinal phlegmon only
� Other
� Clinically Unable to Determine
Use of terms such as suspected, likely, concern for, or probable (associated with a specific diagnosis that is being evaluated, monitored, or treated as if it exists) are acceptable and can be coded in the inpatient setting when documented at the
time of discharge.
Please use your independent medical judgement in providing your response.
Thank you,
Bria Hernandez RN
CDI Specialist
[employer] Text
[2025-10-06 17:57] LABS: Glucose - Point of Care 119 mg/dl (70-99)
[2025-10-06 18:17] LABS: Uric Acid 14.3 mg/dl (3.5-8.5)
--- NOTE | 2025-10-06 19:11 | VATNOTE ---
TT bt. Dr. Foy and Dr Cherry this afternoon re. picc order after midline exchanged earlier today. Picc ordered for Blood Cultures according to Dr. Cherry; Inquired of cultures could be drawn from midline placed and used earlier today since has
good blood return now. Dr. Cherry stated yes and thus VAT drawing BS from midline now.
--- NOTE | 2025-10-06 21:03 | W.PN.UPDATE ---
Update Note
Progress Note Update
MRI of thoracic spine highly suggestive of T9-10 Osteomyelitis, discitis. Patient neurologically stable with 5/5 strength in LEs.
febrile again 10/06/25. Undergoing ID workup. ESR 79, CRP 226.
IR consult pending for biopsy.
Also being worked up for possible incidentally found LUng mass, ?carcinoma.
At present time recommend ID workup, and Abx coverage once biopsy obtained.
TLSO brace when upright and weight bearing.
No neurosurgical intervention recommended at present time given stable neuro exam and multiple active medical issues.
Will sign off, call with ?s
[2025-10-06 21:32] LABS: Glucose - Point of Care 102 mg/dl (70-99)
[2025-10-06] MEDS: LIPITOR 40 MG PO (22:08)
[2025-10-06] MEDS: ARICEPT 10 MG PO (22:09)
[2025-10-06] MEDS: CARDURA 3 MG PO (22:15)
--- NOTE | 2025-10-06 23:57 | VATNOTE ---
LATE ENTRY-BLOOD CULTURES OBTAINED PERIPHERALLY ORDERED. SECOND SET ONLY CONTAINED AEROBIC SPECIMEN.BIOPATCH ON MIDLINE DRSG IS SATURATED WITH SEROUS SANGUINOUS FLUID PT HAS EXTENSIVE ANASARCA. PT REFUSED TO HAVE DRSG CHANGED. PT REPEATING HE
DOESNT WANT ANY OF THESE PROCEDURES DONE AND WANTS TO GO ON HOSPICE.
[2025-10-07] VITALS (10 sets, daily range): BP systolic 100–116; BP diastolic 43–57; BMI 24.5
[2025-10-07] MEDS: TOPROL XL PO ×2 (00:19→09:59)
[2025-10-07] MEDS: DILAUDID 0.5 MG IV ×3 (03:04→11:14)
[2025-10-07] MEDS: SYNTHROID 175 MCG PO (03:05)
--- NOTE | 2025-10-07 04:10 | W.PN.UPDATE ---
Update Note
Progress Note Update
RN concern about fluids running while patient third spacing. Patient seen, AA conversant, stable VS, B/L LE edematous, per nursing rales at the bases.
decrease IVF to 60cc/hr
[2025-10-07 04:14] LABS: INR 3.00; PT 31.5 Sec (11.4-14.6)
[2025-10-07 04:37] LABS: Blood Urea Nitrogen 107 mg/dl (9-20); Calcium 7.4 mg/dl (8.4-10.2); Carbon Dioxide 15 mmol/L (22-30); Chloride 115 mmol/L (98-107); Glucose 90 mg/dl (70-99); Hematocrit 28.9 % (39.0-52.0); Hemoglobin 8.8 g/dL (13.0-18.0); Mean Corp Hgb Conc. 30.4 g/dL (33.0-37.0); Mean Corpuscular Volume 94.8 fL (80.0-94.0); Platelet Count 218 10^3/uL (130-400); Potassium 4.2 mmol/L (3.5-5.1); Red Cell Dist. Width 17.4 % (11.5-14.5); Sodium 139 mmol/L (135-145)
[2025-10-07 04:49] LABS: Estimated Creatinine Clearance 19 ml/min; eGFR 20.55
[2025-10-07 05:37] LABS: Glucose - Point of Care 98 mg/dl (70-99)
[2025-10-07] MEDS: PULMICORT 0.5 MG INH (07:11)
--- NOTE | 2025-10-07 07:41 | W.PN.HOSP.TC ---
Addendum entered and electronically signed by Tam Foy MD 10/12/25 10:34:
Sacral stage 2 Pressure Injury
Concern for Sepsis T9-T10 discitis/osteomyelitis with paraspinal phlegmon due to with organ dysfunction of Acute Kidney Injury
Original Note:
Today's Communication/Plan
-
Discharge today to inpatient hospice
Assessment / Plan
Assessment / Plan
Physical Exam
General: Not in acute distress
HEENT: Moist mucous membranes
Respiratory: Mild Crackles Bilaterally
Cardiac: S1/S2, Regular Rhythm and Murmur (II/ JOHNNY)
GI: Soft, Non Tender, Non Distended and Normal Bowel Sounds
Extremities: 3+ pitting edema in the bilateral lower extremities
Neuro: Sleepy
Assessment/Plan
85 y/o male with past medical history significant for ASCVD, HFpEF, A-Fib on Eliquis and DM-II who presented to [facility] ED complaining of back pain and lower extremity weakness. Patient stated that his symptoms have been ongoing for about 2 months now.
He was last hospitalized here 08/02/25 - 08/06/25 and treated for heart failure exacerbation at that time. Two days later he had an MRI of his L spine which showed L4 compression fracture and L5 spinous process fracture with associated edema and severe
central canal stenosis at L3-4. Patient stated that he had been participating with physical therapy since that time. Patient was placed on Lyrica for pain, but later developed encephalopathy from it, therefore Lyrica was stopped and his
encephalopathy improved. Patient was also taken off narcotic pain meds and has been in and out of residential. Patient had lifted weights, hurt his back and placed back on narcotic pain medications.
Back Pain / Progressively worsening lower extremity weakness and decreased sensation
Frequent Falls
Thoracic / Lumbar Vertebral Fractures with Associated Edema
Fever
Leukocytosis
Spine Discitis/Osteomyelitis
HFpEF
Bilateral Pleural Effusions
Moderate to severe mitral stenosis
FAHEEM on CKD III
Hyponatremia
Non-Gapped Metabolic Acidosis
Chronic HFpEF
Left Upper Extremity Swelling
Severe Bilateral Lower Extremity Edema
Hypoalbuminemia
Leukocytosis
Iron Deficiency Anemia
Heme Positive Stool
ASCVD
Paroxysmal Atrial Fibrillation
s/p TAVR
ILD / COPD
New lung mass suggestive of new malignancy with hilar lymph node involvement concerning for mets
DM-II
Hypothyroidism
Gout
-I spoke extensively today with patient's daughter Yolanda, and she stated she would like patient to be in hospice, patient has also indicated he wants to go on hospice.
-Discharge today to inpatient hospice
Code Status: DNR
More than 30 minutes spent in discharge including
Final examination of the patient
Summarizing hospital stay
Instructions for continuing care to all relevant caregivers
Preparation of discharge records, prescriptions, and referral forms
Total time spent (in minutes): 50
Anticipated Discharge: > 48 hours
Subjective/Interval History
-
Date of Service: October 07, 2025
Patient was seen and examined. No new symptoms or complaints, but swelling in the arm.
Objective Data
-
Labs:
Laboratory Results
10/07/25
03:50
WBC 24.9 H
Hgb 8.8 L D
Hct 28.9 L
Plt Count 218
PT 31.5 H
INR 3.00
Sodium 139
Potassium 4.2
Chloride 115 H
Carbon Dioxide 15 L
BUN 107 H*
Creatinine 2.9 H
Glucose 90
Calcium 7.4 L
Vital Signs:
Vital Signs
Temp Pulse Resp BP Pulse Ox
98.8 F 77 16 105/44 96
10/07/25 03:00 10/07/25 07:34 10/07/25 07:34 10/07/25 07:34 10/07/25 07:34
I&O
10/06/25 10/07/25 10/08/25
06:59 06:59 06:59
Intake Total 1310 / 1310 850 / 850
Output Total 990 / 990
Balance 320 / 320 850 / 850
--- NOTE | 2025-10-07 08:24 | PTOTSP ---
Reviewed chart. Noted pt for possible hospice consult, also awaiting ultrasound of arm to r/o DVT, and has been recommended by neurosurgeon for pt to have TLSO but NO TLSO was ordered through [facility]. Will continue to hold PT evaluation.
[2025-10-07 09:22] LABS: Albumin 1.9 g/dl (3.5-5.0)
[2025-10-07] MEDS: PACERONE PO (09:59)
[2025-10-07] MEDS: DELTASONE PO (09:59)
[2025-10-07] MEDS: HYDROPHOR TOPICAL (09:59)
[2025-10-07] MEDS: NSS (PRESERVATIVE FREE) IV (10:00)
[2025-10-07] MEDS: PROTONIX IV IV (10:00)
--- NOTE | 2025-10-07 10:01 | W.PN.ID1 ---
Date of Service
Date of Service: October 07, 2025
Today's Communication
Hospice.
Assessment / Plan
# T9-T10 discitis/osteomyelitis with paraspinal phlegmon
# Leukocytosis
# Low grade fevers
# Incidental finding of lung mass suspicious for neoplasm, not chemo candidate
# FAHEEM on CKD3 - worse
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
# Polyarticular gout pain - uric acid 14.3
- 10/05 blood cultures x2 neg to date
- 10/06 blood cultures x 2 pending
- Patient is hospice candidate. Will transition to hospice.
- Cancel IR spine biopsy.
- Daughter asking for empiric IV antibiotic.
I explain IV antibiotics are not allowed during hospice since antibiotics are futile at thispoint.
I offer empiric po antibiotics as temporary measure. Pt declines as he c/o too many pill burden.
Patient will mostly likely pass away before infection progresses to fulminant course.
Daughter understands and agrees to no antibiotics.
- Emotional support provided.
Conditions present on admission:
DM
dementia
HTN
ILD
COPD
Chronic hypoxemic failure on nocturnal O2
TAVR
Atrial fibrillation
CAD s/p stent
HFpEF
PPM
CKD3
Hypothyroidism
gout
R FELIPA
Chief Complaint
-: Other (discitis)
Subjective / Review of Systems
Daughter at bedside. Patient has decided on hospice.
Patient currently comfortable.
Vital Signs / Physical Exam
Vital Signs
Vital Signs
Temp Pulse Resp BP Pulse Ox
98.8 F 77 16 105/44 96
10/07/25 03:00 10/07/25 07:34 10/07/25 07:34 10/07/25 07:34 10/07/25 07:34
Physical Exam
Constitutional: Comfortable, Acutely Ill and Chronically Ill
Eyes: Sclera Anicteric
Pulmonary: Clear (anteriorly)
Extremities: Edema
Objective Data
Lab Data
Lab Results
10/07/25 03:50
10/07/25 03:50
ESR 79 mm/hour (0-20) H 10/05/25 17:09
PT 31.5 Sec (11.4-14.6) H 10/07/25 03:50
INR 3.00 10/07/25 03:50
Estimated Creat Clear 19 ml/min 10/07/25 03:50
Lactic Acid 1.0 mmol/L (0.7-2.0) 10/05/25 01:31
Total Bilirubin 0.4 mg/dl (0.2-1.3) 10/04/25 22:32
AST 12 U/L (17-59) L 10/04/25 22:32
ALT 13 U/L (0-50) 10/04/25 22:32
Alkaline Phosphatase 99 U/L (38-126) 10/04/25 22:32
C-Reactive Protein 226.20 mg/L (0.0-10.00) H 10/05/25 17:09
Most recent labs reviewed.
Micro Results:
10/05/25 00:34 Urine Culture - Final
Urine Klebsiella aerogenes
10/05/25 02:24 Blood Culture - Preliminary
Blood/Venous No Growth in 48 hours- Final report to follow
10/05/25 01:31 Blood Culture - Preliminary
Blood/Venous No Growth in 48 hours- Final report to follow
10/06/25 20:23 Blood Culture - Pending
Blood/Venous
10/06/25 19:25 Blood Culture - Pending
Blood/Venous
10/05/25 00:34 Influenza Types A & B (JOSEPHINE) - Final
Nasal Swab Negative for Influenza A & B, NAAT
Negative results must be combined with clinical observations
and patient history.
Nucleic Acid Amplification test (NAAT)performed on the
[employer] platform.
10/05/25 MRI of the thoracic and lumbar spine without and with contrast: MR findings highly suggestive of discitis/osteomyelitis at T9-10. There is enhancing intermediate T1-weighted signal anteriorly compatible with paraspinal phlegmon. Of note,
the posterior aspect of the disc space is not involved, and there is no evidence for extension into the spinal canal, with no evidence for epidural abscess or phlegmon. Compression deformities involving L1 and L4
10/05/25 CT C/A/P:
1. Left upper lobe pulmonary mass highly suspicious for neoplasm.
2. Smaller part solid right upper lobe opacity, possibly infectious/inflammatory versus metastasis.
3. Slightly prominent mediastinal and bilateral hilar lymph nodes suspected, possibly reactive or metastatic.
5. Probable acute or subacute fracture at T9-10. Cannot rule out underlying discitis osteomyelitis at this level. Recommend further evaluation with dedicated MRI.
10/05/[address]: No acute intracranial abnormality noted.
Care Review
Plan reviewed with: Physician (Dr. Foy)
--- NOTE | 2025-10-07 10:20 | WOUNDNOTE ---
WOC RN NOTE: New consult received for penile wounds. Patient last assess by WOC RN on 10/05. Family member said patient was sleeping and did not want to be disturbed. Per RN Juan, family considering comfort measures.
--- NOTE | 2025-10-07 11:29 | W.PN.UPDATE ---
Update Note
Progress Note Update
Hospice�will sign off
--- NOTE | 2025-10-07 11:34 | PTCARENOTE ---
Transition to hospice chart
--- NOTE | 2025-10-07 12:21 | W.DCSUMMARY ---
Discharge Summary
Discharge Data
Date of Admission: 10/05/25
Date of Discharge: 10/07/25
Total time spent discharging patient (in min): 50
-
Pending Results: No
Hospital Course
85-year-old male with past medical history of heart failure with preserved ejection fraction, paroxysmal atrial fibrillation maintained on Eliquis and amiodarone, CAD, status post TAVR, dual-chamber pacemaker, CKD, hypertension, type 2 diabetes
mellitus, COPD who had admission to [facility] 07/2025, and 08/2025 for acute on chronic heart failure, multiple falls with evidence of thoracic and lumbar compression fractures. Urgent MRI was ordered which showed discitis/osteomyelitis in patient's
thoracic spine. Infectious Disease was consulted and recommended holding off on antibiotics and IR was consulted for biopsy of the affected area of the spine since blood cultures were negative thus far. Cardiology, Nephrology, Neurosurgery, and
Gastroenterology were also consulted, for heart failure concerns, acute kidney injury, spine infection and anemia/gastrointestinal bleed concerns, respectively. Patient's Eliquis was held. Patient was given red blood cells transfusion. Patient was
started on intravenous fluids as he appeared dehydrated with recent history of poor oral intake. Gastroenterology recommended against any endoscopy or colonoscopy given patient's seriously ill condition. Patient was placed on Protonix 40 mg IV [address]ID.
CT Chest/Abdomen/Pelvis showed left upper lobe pulmonary mass highly suspicious for neoplasm, smaller part solid right upper lobe opacity, possibly infectious/inflammatory versus metastasis, slightly prominent mediastinal and bilateral hilar lymph
nodes suspected, possibly reactive or metastatic, small bilateral pleural effusions, probable acute or subacute compression fracture at T9-10. Pulmonary and oncology were also consulted. Patient's edema was noted to have significantly worsened
despite strong outpatient diuretics, and his edema was to likely be multifactorial including sedentary lifestyle, significant back issues, and low serum protein. Patient was determined to have significant failure to thrive. Patient was determined to
be hospice candidate, and patient and his daughter agreed that hospice was the best way forward. Patient was discharged to inpatient hospice.
Discharge Plan
-
Patient Disposition: Hospice - Inpatient DH
Discharge Orders:
Discharge Patient (As Directed); Ordered 10/07/25
Ordered By: Tam Foy
Discharge Date and Time
Discharge Date/Time: 10/07/25 12:28
Print Language: DANISH
--- NOTE | 2025-10-07 15:22 | HOSPNOTE ---
Patient will be admitted inpatient hospice. Admissions was called and Attending aware of plan. Patient complains of pain requiring IV medications. Family and patient aware of stopping IV antibiotics and IV fluids and all in agreement. Patient will
be moved to [facility] when a bed becomes available.
--- NOTE | 2025-10-07 18:23 | CM ---
F/U: Patient went to Hospice today. PLAN: Hospice.
== END 2025-10-07 12:28 | disposition hospice, inpatient (51) | DRG 871 ==
LOC: IMU 03:19
PROVIDERS: Nurse Practitioner Family; Physician Assistant; Radiology Diagnostic Radiology; Student in an Organized Health Care Education/Training Program; ADMITTING PHYSICIAN Hospitalist; ATTENDING PHYSICIAN Hospitalist; CONSULT PHYSICIAN Internal Medicine; CONSULT PHYSICIAN Internal Medicine Critical Care Medicine; CONSULT PHYSICIAN Nuclear Medicine Nuclear Cardiology; CONSULT PHYSICIAN Specialist; EMERGENCY PHYSICIAN Student in an Organized Health Care Education/Training Program; FAMILY PHYSICIAN Internal Medicine; OTHER PHYSICIAN Internal Medicine Hematology & Oncology; OTHER PHYSICIAN Internal Medicine Infectious Disease; OTHER PHYSICIAN Neurological Surgery
DX: A41.89 Other specified sepsis (principal); G06.1 Intraspinal abscess and granuloma; I50.33 Acute on chronic diastolic (congestive) heart failure; M46.26 Osteomyelitis of vertebra, lumbar region; E87.1 Hypo-osmolality and hyponatremia; N17.9 Acute kidney failure, unspecified; E87.20 Acidosis, unspecified; K86.1 Other chronic pancreatitis; I13.0 Hypertensive heart and chronic kidney disease with heart failure and stage 1 through stage 4 chronic kidney disease, or unspecified chronic kidney disease; I47.20 Ventricular tachycardia, unspecified; J96.11 Chronic respiratory failure with hypoxia; Z87.891 Personal history of nicotine dependence; I48.0 Paroxysmal atrial fibrillation; Z79.84 Long term (current) use of oral hypoglycemic drugs; E11.22 Type 2 diabetes mellitus with diabetic chronic kidney disease; N18.31 Chronic kidney disease, stage 3a; L89.152 Pressure ulcer of sacral region, stage 2; R65.20 Severe sepsis without septic shock; Z66 Do not resuscitate; Z79.01 Long term (current) use of anticoagulants; Z79.899 Other long term (current) drug therapy
CPT/HCPCS: 70450; 71250; 72157; 72158; 74176; 80048; 80053; 81003; 81015; 82040; 82077; 82550; 82570; 82607; 82728; 82746; 82962; 83036; 83540; 83550; 83605; 83690; 83735; 83880; 84156; 84300; 84484; 84550; 85014; 85018; 85025; 85027; 85610; 85652; 86140; 86850; 86900; 86901; 86920; 87040; 87077; 87086; 87186; 87502; 87811; 93005; 94640; 96361; 96365; 96366; 96367; 96375; 99291; A9585; P9016

== ENCOUNTER 2025-10-07 12:30 | Inpatient (IN) | payer OTHER, SELFPAY ==
[2025-10-07] MEDS: DILAUDID 1 MG IV ×4 (12:42→20:47)
--- NOTE | 2025-10-07 12:43 | ADM.HSP ---
Admission - Hospice
History of Present Illness
85-year-old male with past medical history of heart failure with preserved ejection fraction, paroxysmal atrial fibrillation maintained on Eliquis and amiodarone, CAD, status post TAVR, dual-chamber pacemaker, CKD, hypertension, type 2 diabetes
mellitus, COPD who had admission to [facility] 07/2025, and 08/2025 for acute on chronic heart failure, multiple falls with evidence of thoracic and lumbar compression fractures. Urgent MRI was ordered which showed discitis/osteomyelitis in patient's
thoracic spine. Infectious Disease was consulted and recommended holding off on antibiotics and IR was consulted for biopsy of the affected area of the spine since blood cultures were negative thus far. Cardiology, Nephrology, Neurosurgery, and
Gastroenterology were also consulted, for heart failure concerns, acute kidney injury, spine infection and anemia/gastrointestinal bleed concerns, respectively. Patient's Eliquis was held. Patient was given red blood cells transfusion. Patient was
started on intravenous fluids as he appeared dehydrated with recent history of poor oral intake. Gastroenterology recommended against any endoscopy or colonoscopy given patient's seriously ill condition. Patient was placed on Protonix 40 mg IV BID.
CT Chest/Abdomen/Pelvis showed left upper lobe pulmonary mass highly suspicious for neoplasm, smaller part solid right upper lobe opacity, possibly infectious/inflammatory versus metastasis, slightly prominent mediastinal and bilateral hilar lymph
nodes suspected, possibly reactive or metastatic, small bilateral pleural effusions, probable acute or subacute compression fracture at T9-10. Pulmonary and oncology were also consulted. Patient's edema was noted to have significantly worsened
despite strong outpatient diuretics, and his edema was to likely be multifactorial including sedentary lifestyle, significant back issues, and low serum protein. Patient was determined to have significant failure to thrive. Patient was determined to
be hospice candidate, and patient and his daughter agreed that hospice was the best way forward. Patient was admitted to inpatient hospice.
Reason for Hospice Admission
Poor prognosis
Physical Exam
General: Comfortable
Respiratory: Decreased Breath Sounds
Cardiology: S1/S2
GI: Soft and Nontender
Musculoskeletal: No Cyanosis
Skin: Warm and Dry
Psych: Calm
Assessment/Medication Plan
Generic Name Dose Route Start Last Admin
Trade Name Freq PRN Reason Stop Dose Admin
Acetaminophen 650 mg 10/07/25 12:24
Acetaminophen 650 Mg Rectal Suppository RECTAL 11/04/25 12:23
Q4HPRN PRN
mild pain, HERNANDEZ, or temp >100.4F
Bisacodyl 10 mg 10/07/25 12:24
Bisacodyl 10 Mg Rectal Suppository RECTAL 11/04/25 12:23
DAILYPRN PRN
if no BM for 3 days
Glycopyrrolate 0.2 mg 10/07/25 12:24
Glycopyrrolate 0.2 Mg/Ml Vial IV 11/04/25 12:23
Q4HPRN PRN
excessive secretions
Haloperidol Lactate 0.5 mg 10/07/25 12:24
Haloperidol Oral Concentrate (10 Mg/5 Ml) Cup SL 11/04/25 12:23
Q4HPRN PRN
agitation/terminal delirium
Haloperidol Lactate 0.25 mg 10/07/25 12:24
Haloperidol 5 Mg/Ml 1 Ml Vial IV 11/04/25 12:23
Q4HPRN PRN
agitation/terminal delirium
Hydromorphone HCl 1 mg 10/07/25 12:39
Hydromorphone 1 Mg/Ml Carpuject IV 10/21/25 12:38
Q1HPRN PRN
moderate-severe pain / dyspnea
Hydromorphone HCl 0 mg 10/07/25 12:24
Hydromorphone 0.25 Mg/0.5 Ml Syringe IV 10/21/25 12:23
[id number] PRN
moderate-severe pain / dyspnea
Protocol
Hyoscyamine Sulfate 0.125 mg 10/07/25 12:24
Hyoscyamine Sulfate 0.125 Mg/Ml In Oral Syringe SL 11/04/25 12:23
Q4HPRN PRN
excessive secretions
Hydromorphone HCl 50 mg in 50 mls @ 0 mls/hr 10/07/25 12:30
Dilaudid IV
PER PROTOCOL RACHEL
Protocol
Per Protocol
Lorazepam 1 mg 10/07/25 12:24
Lorazepam 2 Mg/Ml Vial IV 11/04/25 12:23
Q2HPRN PRN
anxiety
Protocol
Lorazepam 2 mg 10/07/25 12:24
Lorazepam 2 Mg/Ml Vial IV 11/04/25 12:23
Q1HPRN PRN
seizure
Protocol
Ondansetron HCl 4 mg 10/07/25 12:24
Ondansetron 4 Mg/2 Ml Vial IV 11/04/25 12:23
Q6HPRN PRN
nausea/vomiting
Pharmacy Profile Note 0 unit 10/07/25 13:[address] 1 Unit IV 11/04/25 12:59
DIRECTED RACHEL
Prochlorperazine Edisylate 5 mg 10/07/25 12:24
Prochlorperazine 10 Mg/2 Ml Vial IV 11/04/25 12:23
Q6HPRN PRN
nausea/vomiting
Sodium Chloride 0 flush 10/07/25 13:00
Sodium Chloride 0.9% (Flush) Syringe IV 11/04/25 12:59
PER PROTOCOL RACHEL
[2025-10-07 13:00] VITALS: BP 119/68
--- NOTE | 2025-10-07 15:15 | HOSPNOTE ---
Patient was admitted inpatient hospice for pain management. Admissions is aware to move patient to [facility] when a bed is available. Patient will be seen daily.
[2025-10-07] MEDS: DILAUDID 50 IV (17:01)
--- NOTE | 2025-10-07 17:27 | PTCARENOTE ---
Admitted on to in hospice, admission completed. C/o pain 9-10/10 Right arm, back and buttocks. Agitated with care- he is in extreme pain bud the right arm- Has received 3 doses IV Dilaudid past 3 hours- d/w pharmacist- gtt started. Confirmed w
provider to start at step 3 as he has been receiving 1mg doses. Monitors removed, VS noted. Multiple weeping areas on left arm- redressed. Skin tear right shoulder. Buttocks foam removed but not replaced. Report given to Porsha, Family present
will escort over.
[2025-10-08] MEDS: DILAUDID 1 MG IV ×2 (01:10→16:08)
--- NOTE | 2025-10-08 01:23 | PTCARENOTE ---
Received patient at shift change. Family at bedside at start of shift. Patient with Dilaudid infusing for end of life care at 1m/hr, Step 3. See Emar for breakthrough dosing. Family reiterated that they do not want VS and would like minimal
nursing care. . Male purewick in place. Patient sleeping through most of shift so far. See nursing assessment for further physical findings
--- NOTE | 2025-10-08 09:32 | HOSPNOTE ---
Received update from WENDY Story.Pt received one dose of ivp dilaudid through the night for breakthrough pain.No lorazepam required.Appears comfortable on step 3 IV Dilaudid infusion.Family request minimal nursing care be provided as does not want
patient disturbed or moved to often.Received daughter Joseph in room.Patient unresponsive.Appears comfortable with no agitation or restlessness noted.Joseph reports patient comfortable and does not want disturbed.evaluation completed with just visual
appearance of patient .respirations at 6.Bilateral upper arms +2 weeping edema and discolored.Overall color pale.Purwick collection container with small amount of yellow urine.Much emotional support provided to daughter joseph.GIP remains for iv
infusion pain management.Discharge planning continues.
--- NOTE | 2025-10-08 15:08 | W.PN.HOSP.TC ---
Addendum entered and electronically signed by Tam Foy MD 10/12/25 10:34:
Sacral stage 2 Pressure Injury
Concern for Sepsis T9-T10 discitis/osteomyelitis with paraspinal phlegmon due to with organ dysfunction of Acute Kidney Injury
Original Note:
Today's Communication/Plan
-
Continue Hospice/Comfort Care
Continue Dilaudid Drip
Assessment / Plan
Assessment / Plan
Physical Exam
General: Comfortable
Respiratory: Decreased Breath Sounds
Cardiology: S1/S2
GI: Soft and Nontender
Musculoskeletal: No Cyanosis
Skin: Warm and Dry
Psych: Calm
Assessment/Plan
Back Pain / Progressively worsening lower extremity weakness and decreased sensation
Frequent Falls
Thoracic / Lumbar Vertebral Fractures with Associated Edema
Fever
Leukocytosis
Spine Discitis/Osteomyelitis
HFpEF
Bilateral Pleural Effusions
Moderate to severe mitral stenosis
FAHEEM on CKD III
Hyponatremia
Non-Gapped Metabolic Acidosis
Chronic HFpEF
Left Upper Extremity Swelling
Severe Bilateral Lower Extremity Edema
Hypoalbuminemia
Leukocytosis
Iron Deficiency Anemia
Heme Positive Stool
ASCVD
Paroxysmal Atrial Fibrillation
s/p TAVR
ILD / COPD
New lung mass suggestive of new malignancy with hilar lymph node involvement concerning for mets
DM-II
Hypothyroidism
Gout
-Continue Dilaudid Drip; patient appears comfortable
-I spoke to patient's daughter Yolanda inside patient's room today and answered all questions/concerns to satisfaction
Code Status: DNR
Anticipated Discharge: > 48 hours
Subjective/Interval History
-
Date of Service: October 08, 2025
Patient was seen and examined. He was on Dilaudid Drip and appeared comfortable.
Objective Data
-
Vital Signs:
Vital Signs
Temp Pulse Resp BP
98 F 80 20 119/68
10/07/25 13:00 10/07/25 13:00 10/07/25 13:00 10/07/25 13:00
[2025-10-08] MEDS: ROBINUL 0.2 MG IV (16:48)
[2025-10-09] MEDS: LEVSIN ORAL DROPS 0.125 MG SL ×2 (04:48→06:31)
[2025-10-09] MEDS: ATIVAN 1 MG IV (06:09)
[2025-10-09] MEDS: NSS (PRESERVATIVE FREE) 0.5 ML IV (06:10)
[2025-10-09] MEDS: DILAUDID 1 MG IV ×2 (06:36→08:05)
[2025-10-09] MEDS: ROBINUL 0.2 MG IV (08:06)
[2025-10-09] MEDS: HALDOL 0.25 MG IV (08:07)
--- NOTE | 2025-10-09 09:01 | W.PN.DEATH ---
Pronouncement of
-
Called to see patient to pronounce.
No spontaneous heart tones or respirations noted.
Patient not responsive to verbal stimuli.
Patient is pronounced .
Time of : 08:58
Date of : 10/09/25
Cause of : Failure to Thrive, Suspected Infection and Malignancy
Family Notified: Yes
--- NOTE | 2025-10-09 09:14 | W.DCSUMMARY ---
Discharge Summary
Discharge Data
Date of Admission: 10/07/25
Date of Discharge: 10/09/25
Total time spent discharging patient (in min): 45
-
Pending Results: No
Hospital Course
85-year-old male with past medical history of heart failure with preserved ejection fraction, paroxysmal atrial fibrillation maintained on Eliquis and amiodarone, CAD, status post TAVR, dual-chamber pacemaker, CKD, hypertension, type 2 diabetes
mellitus, COPD who had admission to [facility] 07/2025, and 08/2025 for acute on chronic heart failure, multiple falls with evidence of thoracic and lumbar compression fractures. Urgent MRI was ordered which showed discitis/osteomyelitis in patient's
thoracic spine. Infectious Disease was consulted and recommended holding off on antibiotics and IR was consulted for biopsy of the affected area of the spine since blood cultures were negative thus far. Cardiology, Nephrology, Neurosurgery, and
Gastroenterology were also consulted, for heart failure concerns, acute kidney injury, spine infection and anemia/gastrointestinal bleed concerns, respectively. Patient's Eliquis was held. Patient was given red blood cells transfusion. Patient was
started on intravenous fluids as he appeared dehydrated with recent history of poor oral intake. Gastroenterology recommended against any endoscopy or colonoscopy given patient's seriously ill condition. Patient was placed on Protonix 40 mg IV [address]
CT Chest/Abdomen/Pelvis showed left upper lobe pulmonary mass highly suspicious for neoplasm, smaller part solid right upper lobe opacity, possibly infectious/inflammatory versus metastasis, slightly prominent mediastinal and bilateral hilar lymph
nodes suspected, possibly reactive or metastatic, small bilateral pleural effusions, probable acute or subacute compression fracture at T9-10. Pulmonary and oncology were also consulted. Patient's edema was noted to have significantly worsened
despite strong outpatient diuretics, and his edema was to likely be multifactorial including sedentary lifestyle, significant back issues, and low serum protein. Patient was determined to have significant failure to thrive. Patient was determined to
be a hospice candidate, and patient and his daughter agreed that hospice was the best way forward. Patient was admitted to inpatient hospice and eventually was determined to need Dilaudid drip for comfort. Patient on 10/09/25.
Discharge Plan
-
Patient Disposition:
Date/Time
Date/Time: 10/09/25 08:58
Discharge Date and Time
Discharge Date/Time: 10/09/25 10:50
Print Language: MALAGASY
== END 2025-10-09 10:50 | disposition expired | DRG 951 ==
LOC: 2 NORTH 12:30
PROVIDERS: ADMITTING PHYSICIAN Hospitalist
DX: Z51.5 Encounter for palliative care (principal); I50.32 Chronic diastolic (congestive) heart failure; I13.0 Hypertensive heart and chronic kidney disease with heart failure and stage 1 through stage 4 chronic kidney disease, or unspecified chronic kidney disease; M46.24 Osteomyelitis of vertebra, thoracic region; N17.9 Acute kidney failure, unspecified; E87.1 Hypo-osmolality and hyponatremia; E87.20 Acidosis, unspecified; R62.7 Adult failure to thrive; I25.10 Atherosclerotic heart disease of native coronary artery without angina pectoris; J44.9 Chronic obstructive pulmonary disease, unspecified; E11.22 Type 2 diabetes mellitus with diabetic chronic kidney disease; I48.0 Paroxysmal atrial fibrillation; E11.69 Type 2 diabetes mellitus with other specified complication; R29.6 Repeated falls; M46.44 Discitis, unspecified, thoracic region; D72.829 Elevated white blood cell count, unspecified; I05.0 Rheumatic mitral stenosis; N18.30 Chronic kidney disease, stage 3 unspecified; E88.09 Other disorders of plasma-protein metabolism, not elsewhere classified; D50.9 Iron deficiency anemia, unspecified; R91.8 Other nonspecific abnormal finding of lung field; E86.0 Dehydration; E03.9 Hypothyroidism, unspecified; M10.9 Gout, unspecified; Z66 Do not resuscitate; Z79.01 Long term (current) use of anticoagulants; Z95.2 Presence of prosthetic heart valve; Z95.0 Presence of cardiac pacemaker